=== PATIENT | male | born 1965 | race Caucasian/White ===

== ENCOUNTER → 2017-06-29 19:40 | Outpatient (CLI) | payer MEDICAID, SELFPAY | PROVIDERS: Family Provider Family Medicine; PCP Family Medicine; Visit Provider Family Medicine | DX: G47.33 Obstructive sleep apnea (adult) (pediatric) (principal); G47.61 Periodic limb movement disorder; R40.0 Somnolence; R06.83 Snoring | CPT/HCPCS: 95810 ==

== ENCOUNTER 2017-10-31 12:34 | Inpatient (IN) | payer MEDICAID, SELFPAY ==
[2017-10-31 12:50] VITALS: BP 176/107; PULSE 99; RESP 20; TEMP 37.2; O2SAT 99; BMI 28.0; BMI 28.1
[2017-10-31 13:10] VITALS: BP 176/107; PULSE 99; RESP 20; TEMP 37.2
--- NOTE | 2017-10-31 13:11 | HP.PCM_ITS ---
Problem List (1) Alcohol withdrawal Status: Acute Qualifiers: Complication of substance-induced condition: with perceptual disturbance Qualified Code(s): F10.232 - Alcohol dependence with withdrawal with perceptual disturbance (2) Acute alcoholic pancreatitis Status: Resolved Qualifiers: Acute pancreatitis complication: no infection or necrosis Qualified Code(s) : K85.20 - Alcohol induced acute pancreatitis without necrosis or infection (3) Alcoholic hepatitis Status: Chronic Qualifiers: Ascites presence: without ascites Qualified Code(s): K70.10 - Alcoholic hepatitis without ascites (4) ETOH abuse Status: Chronic (5) Hypokalemia Status: Resolved (6) Hypomagnesemia Status: Resolved (7) Pancreatitis Status: Resolved (8) Anxiety Status: Chronic (9) Depression Status: Chronic Qualifiers: Depression Type: major depressive disorder Major depression recurrence: recurrent Active/Remission status: currently active Psychotic features: without psychotic features (10) Essential (primary) hypertension Status: Chronic (11) GERMANIA (obstructive sleep apnea) Status: Chronic Comment: AHI overall CMS 5.5 events per hour History of Present Illness Date of Admission: 10/31/17 Chief Complaint: Tremulousness The patient is a 52 year old M past medical history significant for hypertension , chronic alcohol abuse please send with tremulousness. Patient has had recurrent admission for alcohol related illness including alcoholic pancreatitis. He has previously undergone detox he was sober for only 100 days. Patient relapsed and admitted to drinking almost on a daily basis. He drinks vodka. His last alcohol was around 1 AM on the morning of his presentation. In addition to patient complaining of tremulousness he admits to being anxious. Patient denies any hallucination. He was admitted as a case of acute alcohol withdrawal placed on a monitored bed for subsequent management. Past Medical History Past Medical History (Chronic Problems): Chronic Problems (Last Reviewed 07/13/17 @ 17:28 by EDGARDO OrtegaC) GERMANIA (obstructive sleep apnea) (Chronic) AHI overall CMS 5.5 events per hour Essential (primary) hypertension (Chronic) Depression (Chronic) Anxiety (Chronic) Alcoholic hepatitis (Chronic) ETOH abuse (Chronic) Allergies No Known Allergies Allergy (Verified 07/13/17 12:44) Home Medications: Ambulatory Orders Medication Instructions Recorded Amlodipine [Norvasc] 5 mg PO DAILY 10/15/16 Lisinopril [Zestril] 20 mg PO DAILY 10/15/16 Metoprolol Succinate 25 mg PO DAILY 10/15/16 Trazodone HCl 50 mg PO QHS PRN 10/15/16 acamprosate 333 mg tablet,delayed 666 mg PO TID tab 07/07/17 release fluoxetine 20 mg capsule 60 mg PO QDAY cap 07/07/17 Pantoprazole Sodium 20 mg PO DAILY 10/31/17 Surgical History: no surgical history Smoking Status: Never smoker - *Family History Maternal History Items: Hypertension Paternal History Items: Hypertension Sibling History Items: Hypertension Review of Systems Constitutional: Denies: Anorexia, Chills, Fever Eyes: Denies: Blurred vision HEENT: Denies: Head Aches Cardiovascular: Denies: Chest Pain, Orthopnea, Palpitations, Paroxysmal Noc. Dyspnea Respiratory: Denies: Cough, Shortness of breath at rest, Shortness of breath upon exertion, Sputum production Gastrointestinal: Denies: Abdominal Pain, Hematemesis, Hematochezia Genitourinary: Denies: Dysuria, Frequency, Hematuria Musculoskeletal: Denies: Joint Pain, Joint Tenderness Skin: Denies: Rash Neurological: Reports: Tremor. Denies: Focal weakness, Seizures Psychiatric: Denies: Homicidal Ideations, Suicidal Ideations Hematologic/ Lymphatic: Denies: Easy Bruising, Easy Bleeding VTE Information - Inpt Only VTE Present on Admission: No VTE Mechan Device Prophylaxis: Knee High CHAS Hose VTE Pharm Prophylaxis ordered?: Yes Objective: GENERAL: Tremulous at rest HEENT: Clear conjunctiva, NECK; supple, normal thyroid, CHEST: Clear to auscultation bilaterally, HEART: Regular S1 S2, tachycardic ABDOMEN: soft, normoactive bowel sounds, RECTAL: deferred EXTREMITIES: No edema, no clubbing, no cyanosis. 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 SKIN: No Rash - Physical Exam Vital Signs Temp Pulse Resp BP Pulse Ox 98.9 F 99 20 H 176/107 H 99 10/31/17 13:10 10/31/17 13:10 10/31/17 13:10 10/31/17 13:10 10/31/17 12:50 Oxygen Delivery Method Room Air Weight: 78.925 kg Body Mass Index (BMI) 28.0 Assessment/Plan The patient is a 52 year old M past medical history significant for hypertension , chronic alcohol abuse resented with tremulousness and assessment of acute alcohol withdrawal made admitted to regular nursing floor for subsequent management 1. Alcohol withdrawal in a patient with chronic alcohol abuse admitted to a regular nursing floor to be managed with Ativan using a [facility] protocol 2. Chronic alcohol abuse counseled on cessation 3. Hypertension-blood pressure controlled, home medications continued with dose adjustment as needed 4. Depression with anxiety patient is on SSRI 5. DVT prophylaxis Lovenox with close monitoring of his platelet count Code Visit Inpatient E&M: 46830 Init Hosp L3
[2017-10-31 14:01] LABS: Alcohol, Blood (Medical)-Serum < 3.0 mg/dL; Amylase 70 U/L (25-115); Lipase 420 U/L (73-393)
[2017-10-31 14:03] LABS: International Normalized Ratio 0.9; Prothrombin Time (Protime)PT. 12.4 SECONDS (11.7-14.9)
[2017-10-31] MEDS: Loperamide 2 MG Capsule PO (15:02)
[2017-10-31] MEDS: Ibuprofen 600 MG Tablet PO (15:02)
[2017-10-31] MEDS: Dicyclomine 10 MG Capsule 20 MG PO (15:02)
[2017-10-31] MEDS: Pramipexole Di-HCl 0.25 MG Tablet PO (15:03)
[2017-10-31] MEDS: LORazepam 1 MG Tablet PO ×3 (15:03→21:16)
[2017-10-31] MEDS: Multivitamins,Ther W-Minerals Tablet 1 TABLET PO (15:03)
[2017-10-31] MEDS: cloNIDine HCl 0.1 MG Tablet PO ×3 (15:03→21:16)
[2017-10-31] MEDS: Folic Acid 1 MG Tablet PO (15:03)
[2017-10-31] MEDS: Lactated Ringers 1,000 ML 125 ML IV (15:51)
[2017-10-31] MEDS: Thiamine Hydrochloride 100 MG Tablet PO (16:00)
[2017-10-31 17:10] VITALS: BP 139/85; PULSE 69; RESP 18; TEMP 37.7; O2SAT 99
[2017-10-31 17:16] LABS: Amphetamine Urine VISTA NEGATIVE (<1000 ng/mL); Barbiturate Urine VISTA NEGATIVE (< 200 ng/mL); Benzodiazepine Urine VISTA NEGATIVE (< 200 ng/mL); Cocaine Urine VISTA NEGATIVE (< 300 ng/mL); Ecstacy Urine VISTA NEGATIVE (< 500 ng/mL); Methadone Urine VISTA NEGATIVE (< 300 ng/mL); PCP Urine VISTA NEGATIVE (< 25 ng/mL); THC Urine VISTA POSITIVE (< 50 ng/mL); Vista UDS pH Range 6
[2017-10-31 17:50] VITALS: BP 139/85; PULSE 69; RESP 18; TEMP 37.7
--- NOTE | 2017-10-31 18:03 | CT_ITS ---
STUDY: CT BRAIN WITHOUT CONTRAST REASON FOR EXAM: Male, 52 years old. Fall. Visual disturbance. RADIATION DOSAGE (If Supplied By Facility): CTDIvol = ( 44.99 ) mGy, DLP = ( 812.98 ) mGycm TECHNIQUE: Transaxial CT imaging of the brain was performed without administration of intravenous contrast material. Individualized dose optimization techniques were used for this CT. COMPARISON: March 12, 2015. FINDINGS: Normal soft tissue structures. Normal calvarium. There is mild cerebral atrophy with widening of the extra-axial spaces and ventricular dilatation. Normal white matter tracts of the cerebral hemispheres. Normal basal ganglia and thalami. Normal brainstem. There is mild cerebellar atrophy. There is no intracranial hemorrhage. There are no findings of an acute ischemic infarction. Normal visualized paranasal sinuses. CT/Brain/Head without Contrast IMPRESSION: Chronic involutional changes of the brain. No hemorrhage. Electronically Signed: Mario Alberto Melo MD at 18:44 EDT , Service support ,
[2017-10-31 21:13] VITALS: BP 150/85; PULSE 63; RESP 16; TEMP 36.5
[2017-10-31] MEDS: traZODone 50 MG Tablet PO (21:16)
[2017-11-01] VITALS (8 sets, daily range): BP systolic 128–180; BP diastolic 77–95; PULSE 45–67; RESP 14–16; TEMP 36.4–36.9
[2017-11-01] MEDS: LORazepam 1 MG Tablet PO ×5 (02:01→21:40)
[2017-11-01] MEDS: cloNIDine HCl 0.1 MG Tablet PO ×3 (05:53→17:56)
[2017-11-01 05:59] LABS: Absolute Lymphocyte Count 1.24 X10^3/ul (0.83-4.51); Absolute Neutrophil Count 1.8 X10^3/uL (2.0-7.7); Basophil# 0.03 X10^3/uL; Basophil% 0.8 % (0-1); Eosinophil# 0.12 X10^3/uL; Eosinophils% 3.4 % (0-5); Hematocrit 37.3 % (40-54); Hemoglobin 12.3 g/dl (13.0-16.5); Lymphocyte # 1.24 X10^3/ul (4.0); Lymphocyte % 34.6 % (19-41); Mean Corpuscular Hgb 29.4 pg (27.0-32.0); Mean Platelet Vol. 8.8 fl (6.2-12.0); Monocyte# 0.44 X10^3/uL; Monocyte% 12.3 % (0-10); Neutrophil # 1.75 X10^3/uL (2.7-7.7); Neutrophil % 48.9 % (47-70); Platelet Count 158 K/mm3 (150-450); RBC Distribution Width CV 13.6 % (11.6-14.6); RBC Distribution Width SD 43.5 fl (35.1-43.9); Red Blood Count 4.19 M/mm3 (4.6-6.2); White Blood Count 3.6 K/mm3 (4.4-11.0)
[2017-11-01 06:12] LABS: POSITIVE COUNT NO; POSITIVE DIFFERENTIAL NO; POSITIVE MORPHOLOGY NO
[2017-11-01 06:21] LABS: ALB/GLOB Ratio 0.9 RATIO (0.9-2.4); AST(SGOT) 35 U/L (15-37); Alanine Aminotransfer ALT/SGPT 36 U/L (16-61); Albumin, Serum 3.2 g/dL (3.2-5.0); Alkaline Phosphatase 70 U/L (45-117); Anion Gap 6 (5-15); BUN 10 mg/dL (7-18); BUN/Creat Ratio 11.5 RATIO (10-20); Calcium,Total 8.3 mg/dL (8.5-10.1); Chloride 102 mmol/L (98-107); Creatinine, Serum 0.87 mg/dL (0.70-1.30); EST Glomerular Filtration Rate 97 mL/min (>60); Est Glom Filt Rate - Afr Amer 118 mL/min (>60); Estimated Creatinine Clearance 88.61 ml/min; Globulin 3.7 g/dL (2.2-4.2); Glucose 122 mg/dL (74-106); Magnesium 1.8 mg/dL (1.6-2.6); Potassium 3.7 mmol/L (3.5-5.1); Protein, Total 6.9 g/dL (6.4-8.2); Sodium Level 137 mmol/L (136-145)
--- NOTE | 2017-11-01 07:53 | PCM.PN.HOSP ---
Subjective: Patient seen appears extremely anxious still remains tremulous. His home medications reconciled. Objective: GENERAL: Tremulous at rest HEENT: Clear conjunctiva, NECK; supple, normal thyroid, CHEST: Clear to auscultation bilaterally, HEART: Regular S1 S2, tachycardic ABDOMEN: soft, normoactive bowel sounds, RECTAL: deferred EXTREMITIES: No edema, no clubbing, no cyanosis. 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 SKIN: No Rash Vitals/I&O's: Vital Signs Temp Pulse Resp BP Pulse Ox 98 F 65 16 129/82 H 99 11/01/17 05:58 11/01/17 05:58 11/01/17 05:58 11/01/17 05:58 10/31/17 17:10 Oxygen Delivery Method Room Air Weight: 78.925 kg Body Mass Index (BMI) 28.0 Intake and Output for Last 24 Hours 10/30/17 10/31/17 11/01/17 23:59 23:59 23:59 Intake Total 649 / 649 1429 / 1429 Balance 649 / 649 1429 / 1429 Laboratory Results 10/31/17 13:25: PT 12.4, INR 0.9 10/31/17 13:25: Amylase 70, Lipase 420 H 10/31/17 13:25: Ethyl Alcohol < 3.0 10/31/17 16:15: Urine Opiates Screen NEGATIVE, Urine Methadone Screen NEGATIVE, Ur Barbiturates Screen NEGATIVE, Ur Phencyclidine Scrn NEGATIVE, Ur Amphetamines Screen NEGATIVE, U Methamphetamin-MDMA NEGATIVE, U Benzodiazepines Scrn NEGATIVE, Urine Cocaine Screen NEGATIVE, U Cannabinoids Screen POSITIVE H, Ur Drug Screen Comment 11/01/17 05:32: WBC 3.6 L, RBC 4.19 L, Hgb 12.3 L, Hct 37.3 L, MCV 89.0, MCH 29.4, MCHC 33.0, RDW 13.6, RDW Differential 43.5, Plt Count 158, MPV 8.8, Immature Gran % (Auto) 0.000, Neut % (Auto) 48.9, Lymph % (Auto) 34.6, [place] % (Auto) 12.3 H, Eos % (Auto) 3.4, Baso % (Auto) 0.8, Absolute Neuts (auto) 1.8 L, Absolute Lymphs (auto) 1.24, Total Counted Not Reportable 11/01/17 05:32: Sodium 137, Potassium 3.7, Chloride 102, Carbon Dioxide 29.0, Anion Gap 6, BUN 10, Creatinine 0.87, Estim Creat Clear Calc 88.61, Est GFR (MDRD) Af Amer 118, Est GFR (MDRD) Non-Af 97, BUN/Creatinine Ratio 11.5, Glucose 122 H, Calcium 8.3 L, Magnesium 1.8, Total Bilirubin 0.60, AST 35, ALT 36, Alkaline Phosphatase 70, Total Protein 6.9, Albumin 3.2, Globulin 3.7, Albumin/Globulin Ratio 0.9 Current Medications Acetaminophen (Tylenol) 500 mg PO Q4H PRN PRN PRN Reason: Temp > 100.4 F Al Hydroxide/Mg Hydroxide (Mylanta Ii) 30 ml PO Q6H PRN PRN PRN Reason: dyspesia Bisacodyl (Dulcolax) 10 mg RECTAL DAILY PRN PRN Reason: Constipation Clonidine (Catapres) 0.1 mg PO Q4 [facility] Last Admin: 11/01/17 05:53 Dose: 0.1 mg Dicyclomine HCl (Bentyl) 20 mg PO Q6H PRN PRN PRN Reason: abdominal discomfort Last Admin: 10/31/17 15:02 Dose: 20 mg Enoxaparin Sodium (Lovenox) 40 mg SC DAILY@1000 [facility] Folic Acid (Folic Acid) 1 mg PO DAILY@0800 [facility] Last Admin: 10/31/17 15:03 Dose: 1 mg Hydroxyzine Pamoate (Vistaril Pamoate Capsule) 50 mg PO Q6H PRN PRN PRN Reason: Mild Anxiety (score 1/3) Ibuprofen (Motrin) 600 mg PO Q8H PRN PRN PRN Reason: Mild-Moderate Pain (1-5/10) Last Admin: 10/31/17 15:02 Dose: 600 mg Loperamide HCl (Imodium) 2 - 4 mg PO UD PRN PRN Reason: LOOSE STOOLS Last Admin: 10/31/17 15:02 Dose: 2 mg Lorazepam (Ativan) 1 mg PO Q4H [facility] PRN Reason: Taper Stop: 11/03/17 17:59 Last Admin: 11/01/17 05:53 Dose: 1 mg Magnesium Hydroxide (Milk Of Magnesia) 30 ml PO DAILY PRN PRN PRN Reason: Constipation Methocarbamol (Methocarbamol) 750 mg PO Q6H PRN PRN PRN Reason: Muscle Aches Multivitamins/Minerals ([facility]erals) [facility] Last Admin: 10/31/17 15:03 Dose: 1 tablet Nicotine (Nicoderm Cq (Pbkc)) 21 mg TRANSDERM. DAILY [facility] Ondansetron HCl (Zofran Odt) 4 mg PO Q6H PRN PRN PRN Reason: NAUSEA Pramipexole Dihydrochloride (Mirapex) 0.25 mg PO Q12H PRN PRN PRN Reason: Restless legs Last Admin: 10/31/17 15:03 Dose: 0.25 mg Quetiapine Fumarate (Seroquel) 25 mg PO Q6H PRN PRN PRN Reason: Moderate Anxiety (score 2/3) Senna (Senokot) 1 tablet PO QHS PRN PRN Reason: Constipation Thiamine [facility] ([facility]itamin B1) [facility] Last Admin: 10/31/17 16:00 Dose: 100 mg Trazodone HCl (Desyrel) 50 mg PO QHS [facility] Last Admin: 10/31/17 21:16 Dose: 50 mg Medical Necessity - Tobacco Use Smoking Status: Never smoker Assessment/Plan The patient is a 52 year old M past medical history significant for hypertension, chronic alcohol abuse resented with tremulousness and assessment of acute alcohol withdrawal made admitted to regular nursing floor for subsequent management 1. Alcohol withdrawal in a patient with chronic alcohol abuse admitted to a regular nursing floor to be managed with Ativan using a [facility] protocol 2. Chronic alcohol abuse counseled on cessation 3. Hypertension-blood pressure controlled, home medications continued with dose adjustment as needed 4. Depression with anxiety patient is on SSRI 5. DVT prophylaxis Lovenox with close monitoring of his platelet count Code Visit Inpatient E&M: 35769 [facility] Hosp L3
[2017-11-01] MEDS: Multivitamins,Ther W-Minerals Tablet 1 TABLET PO (09:16)
[2017-11-01] MEDS: Thiamine Hydrochloride 100 MG Tablet PO (09:16)
[2017-11-01] MEDS: Folic Acid 1 MG Tablet PO (09:16)
[2017-11-01] MEDS: Enoxaparin 40 MG/0.4 ML Syringe SC (09:17)
[2017-11-01] MEDS: Lisinopril 20 MG Tablet PO ×2 (10:55→22:47)
[2017-11-01] MEDS: FLUoxetine 20 MG Capsule 60 MG PO (10:55)
[2017-11-01] MEDS: Pantoprazole Sodium 20 MG Tablet PO (10:56)
[2017-11-01] MEDS: amLODIPine 5 MG Tablet PO (10:56)
[2017-11-01] MEDS: QUEtiapine 25 MG Tablet PO (11:02)
[2017-11-01] MEDS: Metoprolol(XL)Succ 25 MG Tablet PO (14:44)
[2017-11-01] MEDS: Magnesium Hydroxide 30 ML UDC PO (14:48)
[2017-11-01] MEDS: traZODone 50 MG Tablet PO (21:40)
[2017-11-02 03:07] VITALS: BP 158/90; PULSE 58; RESP 16; TEMP 36.5
[2017-11-02] MEDS: LORazepam 1 MG Tablet PO ×3 (03:13→17:48)
--- NOTE | 2017-11-02 07:50 | PCM.PN.HOSP ---
Subjective: Patient seen appears less tremulous compared to the day prior. Objective: GENERAL: Tremulous at rest HEENT: Clear conjunctiva, NECK; supple, normal thyroid, CHEST: Clear to auscultation bilaterally, HEART: Regular S1 S2, tachycardic ABDOMEN: soft, normoactive bowel sounds, RECTAL: deferred EXTREMITIES: No edema, no clubbing, no cyanosis. 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 SKIN: No Rash Vitals/I&O's: Vital Signs Temp Pulse Resp BP Pulse Ox 97.7 F L 58 L 16 158/90 H 99 11/02/17 03:07 11/02/17 03:07 11/02/17 03:07 11/02/17 03:07 10/31/17 17:10 Oxygen Delivery Method Room Air Weight: 78.925 kg Body Mass Index (BMI) 28.0 Intake and Output for Last 24 Hours 10/31/17 11/01/17 11/02/17 23:59 23:59 23:59 Intake Total 649 / 649 1429 / 1429 500 / 500 Balance 649 / 649 1429 / 1429 500 / 500 Current Medications Acetaminophen (Tylenol) 500 mg PO Q4H PRN PRN PRN Reason: Temp > 100.4 F Al Hydroxide/Mg Hydroxide (Mylanta Ii) 30 ml PO Q6H PRN PRN PRN Reason: dyspesia Amlodipine Besylate (Norvasc) 5 mg PO DAILY [facility] Last Admin: 11/01/17 10:56 Dose: 5 mg Bisacodyl (Dulcolax) 10 mg RECTAL DAILY PRN PRN Reason: Constipation Clonidine (Catapres) 0.1 mg PO Q4 [facility] Last Admin: 11/02/17 06:15 Dose: Not Given Dicyclomine HCl (Bentyl) 20 mg PO Q6H PRN PRN PRN Reason: abdominal discomfort Last Admin: 10/31/17 15:02 Dose: 20 mg Enoxaparin Sodium (Lovenox) 40 mg SC DAILY@1000 [facility] Last Admin: 11/01/17 09:17 Dose: 40 mg Fluoxetine HCl (Prozac) 60 mg PO DAILY [facility] Last Admin: 11/01/17 10:55 Dose: 60 mg Folic Acid (Folic Acid) 1 mg PO DAILY@0800 [facility] Last Admin: 11/01/17 09:16 Dose: 1 mg Hydroxyzine Pamoate (Vistaril Pamoate Capsule) 50 mg PO Q6H PRN PRN PRN Reason: Mild Anxiety (score 1/3) Ibuprofen (Motrin) 600 mg PO Q8H PRN PRN PRN Reason: Mild-Moderate Pain (1-5/10) Last Admin: 10/31/17 15:02 Dose: 600 mg Lisinopril (Zestril) 20 mg PO BID [facility] Last Admin: 11/01/17 22:47 Dose: 20 mg Loperamide HCl (Imodium) 2 - 4 mg PO UD PRN PRN Reason: LOOSE STOOLS Last Admin: 10/31/17 15:02 Dose: 2 mg Lorazepam (Ativan) 1 mg PO Q6H [facility] PRN Reason: Taper Stop: 11/03/17 17:59 Last Admin: 11/02/17 03:13 Dose: 1 mg Magnesium Hydroxide (Milk Of Magnesia) 30 ml PO DAILY PRN PRN PRN Reason: Constipation Last Admin: 11/01/17 14:48 Dose: 30 ml Methocarbamol (Methocarbamol) 750 mg PO Q6H PRN PRN PRN Reason: Muscle Aches Metoprolol Succinate (Toprol Xl (Beta Rissa)) 25 mg PO DAILY [facility] Last Admin: 11/01/17 14:44 Dose: 25 mg Multivitamins/Minerals (Multivitamin With Minerals) [facility] Last Admin: 11/01/17 09:16 Dose: 1 tablet Nicotine (Nicoderm Cq (Pbkc)) 21 mg TRANSDERM. DAILY [facility] Last Admin: 11/01/17 10:56 Dose: Not Given Ondansetron HCl (Zofran Odt) 4 mg PO Q6H PRN PRN PRN Reason: NAUSEA Pantoprazole Sodium (Protonix) 20 mg PO DAILY [facility] Last Admin: 11/01/17 10:56 Dose: 20 mg Pramipexole Dihydrochloride (Mirapex) 0.25 mg PO Q12H PRN PRN PRN Reason: Restless legs Last Admin: 10/31/17 15:03 Dose: 0.25 mg Quetiapine Fumarate (Seroquel) 25 mg PO Q6H PRN PRN PRN Reason: Moderate Anxiety (score 2/3) Last Admin: 11/01/17 11:02 Dose: 25 mg Senna (Senokot) 1 tablet PO QHS PRN PRN Reason: Constipation Thiamine HCl (Vitamin B1) [facility] Last Admin: 11/01/17 09:16 Dose: 100 mg Trazodone HCl (Desyrel) 50 mg PO QHS [facility] Last Admin: 11/01/17 21:40 Dose: 50 mg Medical Necessity - Tobacco Use Smoking Status: Never smoker Assessment/Plan The patient is a 52 year old M past medical history significant for hypertension, chronic alcohol abuse resented with tremulousness and assessment of acute alcohol withdrawal made admitted to regular nursing floor for subsequent management 1. Alcohol withdrawal in a patient with chronic alcohol abuse admitted to a regular nursing floor to be managed with Ativan using a [facility] protocol 2. Chronic alcohol abuse counseled on cessation 3. Hypertension-blood pressure controlled, home medications continued with dose adjustment as needed 4. Depression with anxiety patient is on SSRI 5. DVT prophylaxis Lovenox with close monitoring of his platelet count Code Visit Inpatient E&M: 26250 Subs Hosp L2
--- NOTE | 2017-11-02 07:57 | PN_ITS ---
Subjective: Patient seen appears less tremulous compared to the day prior. Objective: GENERAL: Tremulous at rest HEENT: Clear conjunctiva, NECK; supple, normal thyroid, CHEST: Clear to auscultation bilaterally, HEART: Regular S1 S2, tachycardic ABDOMEN: soft, normoactive bowel sounds, RECTAL: deferred EXTREMITIES: No edema, no clubbing, no cyanosis. 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 SKIN: No Rash Vitals/I&O's: Vital Signs Temp Pulse Resp BP Pulse Ox 97.7 F L 58 L 16 158/90 H 99 11/02/17 03:07 11/02/17 03:07 11/02/17 03:07 11/02/17 03:07 10/31/17 17:10 Oxygen Delivery Method Room Air Weight: 78.925 kg Body Mass Index (BMI) 28.0 Intake and Output for Last 24 Hours 10/31/17 11/01/17 11/02/17 23:59 23:59 23:59 Intake Total 649 / 649 1429 / 1429 500 / 500 Balance 649 / 649 1429 / 1429 500 / 500 Current Medications Acetaminophen (Tylenol) 500 mg PO Q4H PRN PRN PRN Reason: Temp > 100.4 F Al Hydroxide/Mg Hydroxide (Mylanta Ii) 30 ml PO Q6H PRN PRN PRN Reason: dyspesia Amlodipine Besylate (Norvasc) 5 mg PO DAILY [facility] Last Admin: 11/01/17 10:56 Dose: 5 mg Bisacodyl (Dulcolax) 10 mg RECTAL DAILY PRN PRN Reason: Constipation Clonidine (Catapres) 0.1 mg PO Q4 [facility] Last Admin: 11/02/17 06:15 Dose: Not Given Dicyclomine HCl (Bentyl) 20 mg PO Q6H PRN PRN PRN Reason: abdominal discomfort Last Admin: 10/31/17 15:02 Dose: 20 mg Enoxaparin Sodium (Lovenox) 40 mg SC DAILY@1000 [facility] Last Admin: 11/01/17 09:17 Dose: 40 mg Fluoxetine HCl (Prozac) 60 mg PO DAILY [facility] Last Admin: 11/01/17 10:55 Dose: 60 mg Folic Acid (Folic Acid) 1 mg PO DAILY@0800 [facility] Last Admin: 11/01/17 09:16 Dose: 1 mg Hydroxyzine Pamoate (Vistaril Pamoate Capsule) 50 mg PO Q6H PRN PRN PRN Reason: Mild Anxiety (score 1/3) Ibuprofen (Motrin) 600 mg PO Q8H PRN PRN PRN Reason: Mild-Moderate Pain (1-5/10) Last Admin: 10/31/17 15:02 Dose: 600 mg Lisinopril (Zestril) 20 mg PO BID [facility] Last Admin: 11/01/17 22:47 Dose: 20 mg Loperamide HCl (Imodium) 2 - 4 mg PO UD PRN PRN Reason: LOOSE STOOLS Last Admin: 10/31/17 15:02 Dose: 2 mg Lorazepam (Ativan) 1 mg PO Q6H [facility] PRN Reason: Taper Stop: 11/03/17 17:59 Last Admin: 11/02/17 03:13 Dose: 1 mg Magnesium Hydroxide (Milk Of Magnesia) 30 ml PO DAILY PRN PRN PRN Reason: Constipation Last Admin: 11/01/17 14:48 Dose: 30 ml Methocarbamol (Methocarbamol) 750 mg PO Q6H PRN PRN PRN Reason: Muscle Aches Metoprolol Succinate (Toprol Xl (Beta Rissa)) 25 mg PO DAILY [facility] Last Admin: 11/01/17 14:44 Dose: 25 mg Multivitamins/Minerals ([facility]itamin With Minerals) [facility] Last Admin: 11/01/17 09:16 Dose: 1 tablet Nicotine (Nicoderm Cq (Pbkc)) 21 mg TRANSDERM. DAILY [facility] Last Admin: 11/01/17 10:56 Dose: Not Given Ondansetron HCl (Zofran Odt) 4 mg PO Q6H PRN PRN PRN Reason: NAUSEA Pantoprazole Sodium (Protonix) 20 mg PO DAILY [facility] Last Admin: 11/01/17 10:56 Dose: 20 mg Pramipexole Dihydrochloride (Mirapex) 0.25 mg PO Q12H PRN PRN PRN Reason: Restless legs Last Admin: 10/31/17 15:03 Dose: 0.25 mg Quetiapine Fumarate (Seroquel) 25 mg PO Q6H PRN PRN PRN Reason: Moderate Anxiety (score 2/3) Last Admin: 11/01/17 11:02 Dose: 25 mg Senna (Senokot) 1 tablet PO QHS PRN PRN Reason: Constipation Thiamine HCl (Vitamin B1) [facility] Last Admin: 11/01/17 09:16 Dose: 100 mg Trazodone HCl (Desyrel) 50 mg PO QHS [facility] Last Admin: 11/01/17 21:40 Dose: 50 mg Medical Necessity - Tobacco Use Smoking Status: Never smoker Assessment/Plan The patient is a 52 year old M past medical history significant for hypertension , chronic alcohol abuse resented with tremulousness and assessment of acute alcohol withdrawal made admitted to regular nursing floor for subsequent management 1. Alcohol withdrawal in a patient with chronic alcohol abuse admitted to a regular nursing floor to be managed with Ativan using a [facility] protocol 2. Chronic alcohol abuse counseled on cessation 3. Hypertension-blood pressure controlled, home medications continued with dose adjustment as needed 4. Depression with anxiety patient is on SSRI 5. DVT prophylaxis Lovenox with close monitoring of his platelet count Code Visit Inpatient E&M: 06164 Subs Hosp L2
[2017-11-02] MEDS: Thiamine Hydrochloride 100 MG Tablet PO (08:44)
[2017-11-02] MEDS: Folic Acid 1 MG Tablet PO (08:44)
[2017-11-02 10:00] VITALS: BP 146/99; PULSE 62; RESP 18; TEMP 36.6
[2017-11-02] MEDS: Lisinopril 20 MG Tablet PO ×2 (10:02→22:14)
[2017-11-02] MEDS: Multivitamins,Ther W-Minerals Tablet 1 TABLET PO (10:02)
[2017-11-02] MEDS: Pantoprazole Sodium 20 MG Tablet PO (10:02)
[2017-11-02] MEDS: cloNIDine HCl 0.1 MG Tablet PO ×3 (10:02→22:14)
[2017-11-02] MEDS: Enoxaparin 40 MG/0.4 ML Syringe SC (10:03)
[2017-11-02] MEDS: FLUoxetine 20 MG Capsule 60 MG PO (10:03)
[2017-11-02] MEDS: amLODIPine 5 MG Tablet PO (10:03)
[2017-11-02 10:04] VITALS: PULSE 62
[2017-11-02] MEDS: Metoprolol(XL)Succ 25 MG Tablet PO (10:04)
[2017-11-02 14:00] VITALS: BP 139/104; PULSE 67; RESP 18; TEMP 36.7
[2017-11-02] MEDS: Ibuprofen 600 MG Tablet PO (16:22)
[2017-11-02] MEDS: Methocarbamol 750 MG Tablet PO (16:23)
[2017-11-02 17:46] VITALS: BP 161/85; PULSE 61; RESP 18; TEMP 37.1
[2017-11-02 20:28] VITALS: BP 148/88; PULSE 65; RESP 16; TEMP 36.9
[2017-11-02] MEDS: Pramipexole Di-HCl 0.25 MG Tablet PO (20:43)
[2017-11-02] MEDS: traZODone 50 MG Tablet PO (22:14)
[2017-11-03 02:00] VITALS: BP 129/89; PULSE 57; RESP 16; TEMP 36.6
[2017-11-03] MEDS: LORazepam 1 MG Tablet PO (02:40)
[2017-11-03 05:21] VITALS: BP 134/75; PULSE 53; RESP 16; TEMP 36.9
[2017-11-03] MEDS: Folic Acid 1 MG Tablet PO (07:35)
[2017-11-03] MEDS: Thiamine Hydrochloride 100 MG Tablet PO (07:35)
[2017-11-03] MEDS: Multivitamins,Ther W-Minerals Tablet 1 TABLET PO (07:35)
--- NOTE | 2017-11-03 08:11 | PCM.DC ---
You will use the following diet at home:: No restrictions Allergies/Adverse Reactions: Allergies No Known Allergies Allergy (Verified 07/13/17 12:44) Medications to take at Discharge Amlodipine [Norvasc] 5 mg PO DAILY 10/15/16 Lisinopril [Zestril] 20 mg PO BID 10/15/16 Metoprolol Succinate 25 mg PO DAILY 10/15/16 Trazodone HCl 50 mg PO QHS PRN 10/15/16 acamprosate 333 mg tablet,delayed release 666 mg PO TID tab 07/07/17 fluoxetine 20 mg capsule 60 mg PO QDAY cap 07/07/17 Pantoprazole Sodium 20 mg PO DAILY 10/31/17 Primary Care Physician: Enoch Ramirez MD [Primary Care Provider] - Please follow up with your Primary Care Physician in: in 1-2 weeks Proposed Discharge Date: 11/03/17
--- NOTE | 2017-11-03 08:15 | DS.PCM_ITS ---
Discharge Date and Diagnosis Date of Admission: 10/31/17 Date of Discharge: 11/03/17 - Primary Discharge Diagnosis Acute alcohol withdrawal - Secondary Discharge Diagnosis Chronic Problems (Last Reviewed 07/13/17 @ 17:28 by REMI Ortega) GERMANIA (obstructive sleep apnea) (Chronic) AHI overall CMS 5.5 events per hour Essential (primary) hypertension (Chronic) Depression (Chronic) Anxiety (Chronic) Alcoholic hepatitis (Chronic) ETOH abuse (Chronic) Hospital Course and Treatment Imaging Results: Clinical Impression(s) from Imaging Studies Brain CT 10/31/17 18:03 IMPRESSION: Chronic involutional changes of the brain. No hemorrhage. Electronically Signed: Mario Alberto Melo MD at 18:44 EDT , Service support , Operations: None Summary of Care Provided: The patient is a 52 year old M past medical history significant for hypertension , chronic alcohol abuse resented with tremulousness and assessment of acute alcohol withdrawal made admitted to regular nursing floor for subsequent management 1. Alcohol withdrawal in a patient with chronic alcohol abuse admitted to a regular nursing floor to be managed with Ativan using a [facility] protocol 2. Chronic alcohol abuse counseled on cessation 3. Hypertension-blood pressure controlled, home medications continued with dose adjustment as needed 4. Depression with anxiety patient is on SSRI 5. DVT prophylaxis Lovenox with close monitoring of his platelet count Discharge Diet: No Restrictions Home Medications: Medications to take at Discharge Amlodipine [Norvasc] 5 mg PO DAILY 10/15/16 Lisinopril [Zestril] 20 mg PO BID 10/15/16 Metoprolol Succinate 25 mg PO DAILY 10/15/16 Trazodone HCl 50 mg PO QHS PRN 10/15/16 acamprosate 333 mg tablet,delayed release 666 mg PO TID tab 07/07/17 fluoxetine 20 mg capsule 60 mg PO QDAY cap 07/07/17 Pantoprazole Sodium 20 mg PO DAILY 10/31/17 Primary Care Physician: Enoch Ramirez MD [Primary Care Provider] - Please follow up with your Primary Care Physician in: in 1-2 weeks Disposition: Home Minutes spent on discharge:: 35 Patient Condition:: Stable Medical Necessity - Tobacco Use Smoking Status: Never smoker Meaningful Use Info Meaningful Use Diagnoses (Choose all that apply): None applicable Code Visit Inpatient E&M: 24557 Disch Hosp
[2017-11-03] MEDS: FLUoxetine 20 MG Capsule 60 MG PO (09:27)
[2017-11-03] MEDS: Enoxaparin 40 MG/0.4 ML Syringe SC (09:27)
[2017-11-03 09:28] VITALS: PULSE 78
[2017-11-03] MEDS: Pantoprazole Sodium 20 MG Tablet PO (09:28)
[2017-11-03] MEDS: Metoprolol(XL)Succ 25 MG Tablet PO (09:28)
[2017-11-03] MEDS: amLODIPine 5 MG Tablet PO (09:29)
[2017-11-03] MEDS: Lisinopril 20 MG Tablet PO (09:35)
[2017-11-03] MEDS: cloNIDine HCl 0.1 MG Tablet PO (09:35)
[2017-11-03 09:44] VITALS: PULSE 78
[2017-11-03 09:46] VITALS: BP 128/88; PULSE 78; RESP 18; TEMP 36.6; O2SAT 98
== END 2017-11-03 10:00 | disposition home or self-care (01) | DRG 434 ==
PROVIDERS: Admitting Provider Internal Medicine; Family Provider Family Medicine; PCP Family Medicine; Visit Provider Internal Medicine
DX: F10.232 Alcohol dependence with withdrawal with perceptual disturbance (principal); K85.20 Alcohol induced acute pancreatitis without necrosis or infection; G47.33 Obstructive sleep apnea (adult) (pediatric); I10 Essential (primary) hypertension; F41.8 Other specified anxiety disorders; K70.10 Alcoholic hepatitis without ascites
CPT/HCPCS: 36415; 70450; 80053; 80307; 80320; 82150; 83690; 83735; 85025; 85610; J7120; G0480

== ENCOUNTER 2018-01-30 19:11 | Inpatient (IN) | payer SELFPAY ==
[2018-01-30 19:12] VITALS: BP 169/106; PULSE 80; RESP 17; TEMP 36.8; O2SAT 98; BMI 28.3
[2018-01-30] MEDS: 0.9% Normal Saline 1,000 ML 150 ML IV (20:14)
[2018-01-30] MEDS: LORazepam 2 MG/ML Syringe 0.5 MG IV (20:14)
[2018-01-30 20:15] VITALS: PULSE 68; RESP 16; O2SAT 96
[2018-01-30 20:22] LABS: Absolute Lymphocyte Count 2.08 X10^3/ul (0.83-4.51); Basophil# 0.03 X10^3/uL; Basophil% 0.7 % (0-1); Eosinophil# 0.03 X10^3/uL; Eosinophils% 0.7 % (0-5); Hematocrit 43.6 % (40-54); Hemoglobin 15.7 g/dl (13.0-16.5); Lymphocyte # 2.08 X10^3/ul (4.0); Lymphocyte % 45.4 % (19-41); Mean Corpuscular Hgb 31.9 pg (27.0-32.0); Mean Corpuscular Volume 88.6 fL (80-94); Mean Platelet Vol. 8.5 fl (6.2-12.0); Monocyte# 0.46 X10^3/uL; Neutrophil # 1.97 X10^3/uL (2.7-7.7); Platelet Count 251 K/mm3 (150-450); RBC Distribution Width CV 16.1 % (11.6-14.6); Red Blood Count 4.92 M/mm3 (4.6-6.2); White Blood Count 4.6 K/mm3 (4.4-11.0)
[2018-01-30 20:23] LABS: POSITIVE COUNT NO; POSITIVE DIFFERENTIAL NO; POSITIVE MORPHOLOGY NO
[2018-01-30 21:01] VITALS: BP 150/93; PULSE 72; RESP 18; O2SAT 94
[2018-01-30 21:33] LABS: Amphetamine Urine VISTA NEGATIVE (<1000 ng/mL); Barbiturate Urine VISTA NEGATIVE (< 200 ng/mL); Benzodiazepine Urine VISTA NEGATIVE (< 200 ng/mL); Cocaine Urine VISTA NEGATIVE (< 300 ng/mL); Ecstacy Urine VISTA NEGATIVE (< 500 ng/mL); Methadone Urine VISTA NEGATIVE (< 300 ng/mL); PCP Urine VISTA NEGATIVE (< 25 ng/mL); THC Urine VISTA POSITIVE (< 50 ng/mL); Vista UDS pH Range 6
[2018-01-30 22:03] VITALS: BP 135/90; PULSE 70; RESP 16; O2SAT 95
[2018-01-30 22:59] LABS: AST(SGOT) 421 U/L (15-37); Alanine Aminotransfer ALT/SGPT 143 U/L (16-61); Albumin, Serum 2.9 g/dL (3.2-5.0); Alkaline Phosphatase 176 U/L (45-117); Anion Gap 13 (5-15); BUN 12 mg/dL (7-18); BUN/Creat Ratio 12.1 RATIO (10-20); Bilirubin, Direct 0.46 mg/dL (0.00-0.30); Calcium,Total 7.2 mg/dL (8.5-10.1); Chloride 98 mmol/L (98-107); Creatinine, Serum 0.99 mg/dL (0.70-1.30); EST Glomerular Filtration Rate 84 mL/min (>60); Est Glom Filt Rate - Afr Amer 101 mL/min (>60); Estimated Creatinine Clearance 77.87 ml/min; Glucose 124 mg/dL (74-106); Lipase 403 U/L (73-393); Potassium 3.9 mmol/L (3.5-5.1); Protein, Total 6.9 g/dL (6.4-8.2); Sodium Level 133 mmol/L (136-145)
[2018-01-30 23:15] VITALS: BP 117/80; PULSE 77; RESP 17; O2SAT 96
[2018-01-31] VITALS (27 sets, daily range): BP systolic 104–161; BP diastolic 43–104; PULSE 46–90; RESP 13–25; TEMP 36.6–37.1; O2SAT 94–99; BMI 28.4; BMI 28.3
--- NOTE | 2018-01-31 00:05 | ED.DCSUM_ITS ---
- ER Visit Summary Date of Service: 01/31/18 Chief Complaint: Depression History of Present Illness: The patient is a 52 M who is brought in for depression and suicidal ideation. He denies a specific plan. Patient has a history of alcohol abuse. He states he has not eaten in the past week, only drank vodka. He has recently lost his job and his car. His is also leaving him. He was last in detox April - June 2017. Past history significant for sleep apnea, pancreatitis, hypertension, hepatitis. Physical Examination: Vital signs significant for blood pressure of 169/106, otherwise unremarkable. Patient is lying in bed. He is a flat affect with poor eye contact. He is intermittently tearful. Head neck examination is otherwise unremarkable. Heart is regular rate and rhythm. Lung sounds are clear. Abdomen is soft nontender. Hypoactive bowel sounds are noted throughout. Test Results: CBC is normal. Chemistry studies significant for sodium of 133. LFTs revealed ALT 143, AST 421, alk phos 176. Total bili is 1.4 and direct bili 0.46. Lipase is 403. Coags are normal. Tox screen is positive for cannabinoids. EtOH is 307. Emergency Department Course and Treatment: Patient was given small dose of Ativan because he was getting agitated with having to sit here in the ER wait so long. He will be signed over to oncoming physician for repeat evaluation. If patient develops symptoms of alcohol withdrawal, he will need to be admitted for detox. Patient will be reevaluated by counseling center as well. Treatment Plan: [] Disposition: Pending repeat evaluation Impression: 1. Suicidal thoughts 2. Alcohol intoxication 3. Alcoholic hepatitis This note was generated with [employer] dictation software. It may contain incorrect words, spelling, and punctuation that were not noted in review of the chart prior to signing ED Disposition - Plan for ED Patient: Chief Complaint: Suicidal Referrals: Enoch Ramirez MD [Primary Care Provider] -
[2018-01-31] MEDS: 0.9% Normal Saline 1,000 ML 150 ML IV ×2 (05:38→16:32)
[2018-01-31] MEDS: amLODIPine 5 MG Tablet PO (06:58)
[2018-01-31] MEDS: Metoprolol Tartrate 25 MG Tablet PO (06:58)
[2018-01-31] MEDS: Pantoprazole Sodium 20 MG Tablet PO (06:59)
--- NOTE | 2018-01-31 07:14 | ED.RN ---
PATIENT IS CLEARED CALLED CRISIS
[2018-01-31] MEDS: FLUoxetine 20 MG Capsule 60 MG PO (07:19)
[2018-01-31] MEDS: Lisinopril 20 MG Tablet PO ×2 (07:19→21:26)
[2018-01-31] MEDS: LORazepam 2 MG/ML Syringe 1 MG IV ×4 (07:59→19:50)
--- NOTE | 2018-01-31 17:08 | ED.RN ---
ciwa assessment completed by this rn per dr. winston, dr. winston informed of results. will continue to monitor.
--- NOTE | 2018-01-31 18:57 | PCM.HP.STD ---
Problem List (1) Suicidal ideation Status: Acute (2) Alcohol withdrawal Status: Acute History of Present Illness Date of Admission: 01/31/18 Chief Complaint: suicidal ideation. The patient is a 52 year old M who told his that he was going to hang himself in the barn and not to have his by. EMS is sent to his house emergency room. Plan was for the patient to go to inpatient psychiatric unit once his alcohol levels improved as patient was sobered up as his alcohol level was 307. However, the patient had evidence of alcohol withdrawal and did require several doses of Ativan. The facility, [facility], stated that the patient would have to be through his withdrawal before they could accept him as a psychiatric patient. Patient states that he no longer has a gone past and then voluntarily, according him, had his gun removed. But patient stated that he was going to use an order and should extension cord and hitting himself in the rafters of a barn. [] Past Medical History Past Medical History (Chronic Problems): Chronic Problems (Last Reviewed 07/13/17 @ 17:28 by Apryl Schwartz, MARIA FERNANDA-C) GERMANIA (obstructive sleep apnea) (Chronic) AHI overall CMS 5.5 events per hour Essential (primary) hypertension (Chronic) Depression (Chronic) Anxiety (Chronic) Alcoholic hepatitis (Chronic) ETOH abuse (Chronic) Medical History: Medical History (Last Reviewed 01/31/18 @ 18:59 by Adolph Lambert DO) Alcohol withdrawal (Acute) F10.239 Acute alcoholic pancreatitis (Resolved) K85.20 Hypokalemia (Resolved) E87.6 Hypomagnesemia (Resolved) E83.42 Essential (primary) hypertension (Chronic) I10 Depression (Chronic) F32.9 Anxiety (Chronic) F41.9 Alcoholic hepatitis (Chronic) K70.10 Pancreatitis (Resolved) K85.90 ETOH abuse (Chronic) F10.10 Anemia D64.9 GERD (gastroesophageal reflux disease) K21.9 Insomnia G47.00 GERMANIA (obstructive sleep apnea) G47.33 Allergies No Known Allergies Allergy (Verified 01/30/18 19:13) Home Medications: Ambulatory Orders Medication Instructions Recorded Amlodipine [Norvasc] 5 mg PO DAILY 10/15/16 Lisinopril [Zestril] 20 mg PO BID 10/15/16 Metoprolol Succinate 25 mg PO DAILY 10/15/16 Trazodone HCl 50 mg PO QHS PRN 10/15/16 fluoxetine 20 mg capsule 60 mg PO DAILY cap 07/07/17 Pantoprazole Sodium 20 mg PO DAILY 10/31/17 Surgical History: no surgical history Smoking Status: Never smoker Alcohol: Heavy - Drinks 1 pint of low proof vodka per day Drugs: Marijuana - Occasional - *Family History Maternal History Items: Hypertension Paternal History Items: Hypertension Sibling History Items: Hypertension Review of Systems Constitutional: Denies: Anorexia, Chills, Fever Eyes: Denies: Blurred vision, Double vision HEENT: Reports: Head Aches. Denies: Sinus Congestion, Sinus Drainage Cardiovascular: Denies: Chest Pain, Palpitations Respiratory: Denies: Cough, Shortness of breath at rest, Sputum production Gastrointestinal: Reports: Nausea. Denies: Abdominal Pain Genitourinary: Denies: Dysuria Musculoskeletal: Denies: Joint Pain, Joint Tenderness Skin: Denies: Rash, Wounds Neurological: Reports: Tremor. Denies: Balance problems, Blurred vision, Double vision, Change in Speech Psychiatric: Denies: Anxiety, Depression Comment: All review of systems are negative except as mentioned in the history of present illness and the other review of systems. VTE Information - Inpt Only VTE Present on Admission: No VTE Pharm Prophylaxis ordered?: Yes Patient Problems: Active and Suspected Problems (Last Reviewed 07/13/17 @ 17:28 by Apryl Schwartz NP-C) Suicidal ideation (Acute) Alcohol withdrawal (Acute) - Physical Exam General: Alert, Cooperative, No apparent distress HEENT: Atraumatic, Normocephalic Oral: Moist Mucosa, No Gingival or Mucosal Lesions/ Ulcerations Neck: No Nodes, Thyroid Normal Size and Texture Lungs: Clear to auscultation, Normal air movement, No rhonchi, No wheeze Cardiovascular: Regular rate, Regular Rhythm, Normal S1, Normal S2, No murmurs Abdomen: Bowel Sounds Present, Soft, Non Tender, Non-Distended, No Hepato-splenomegaly Extremities: No edema, No Calf Tenderness Skin: No rashes, No breakdown Musculoskeletal: No Tenderness to Palpation of Joints or Extremities, No Muscle Wasting Neurological: Neuro grossly intact, Sensory exam intact to light touch and pain Psych/Mental Status: Normal Affect, Appropriate Vital Signs Temp Pulse Resp BP Pulse Ox 37.1 C 87 15 145/95 H 95 01/31/18 18:06 01/31/18 18:06 01/31/18 18:06 01/31/18 18:06 01/31/18 18:06 Oxygen Delivery Method Room Air Weight: 79.7 kg Body Mass Index (BMI) 28.3 Laboratory Tests Past 24 Hrs 01/30/18 01/30/18 01/30/18 20:10 20:10 20:10 WBC 4.6 RBC 4.92 Hgb 15.7 Hct 43.6 MCV 88.6 MCH 31.9 MCHC 36.0 RDW 16.1 H RDW Differential 52.0 H Plt Count 251 MPV 8.5 Immature Gran % (Auto) 0.200 Neut % (Auto) 43.0 L Lymph % (Auto) 45.4 H [place] % (Auto) 10.0 Eos % (Auto) 0.7 Baso % (Auto) 0.7 Absolute Neuts (auto) 2.0 Absolute Lymphs (auto) 2.08 Total Counted Not Reportable PT INR APTT Sodium 133 L Potassium 3.9 Chloride 98 Carbon Dioxide 22.0 Anion Gap 13 BUN 12 Creatinine 0.99 Estim Creat Clear Calc 77.87 Est GFR (MDRD) Af Amer 101 Est GFR (MDRD) Non-Af 84 BUN/Creatinine Ratio 12.1 Glucose 124 H Calcium 7.2 L Total Bilirubin 1.40 H Direct Bilirubin 0.46 H AST 421 H ALT 143 H Alkaline Phosphatase 176 H Total Protein 6.9 Albumin 2.9 L Globulin 4.0 Lipase 403 H Urine Opiates Screen Urine Methadone Screen Ur Barbiturates Screen Ur Phencyclidine Scrn Ur Amphetamines Screen U Methamphetamin-MDMA U Benzodiazepines Scrn Urine Cocaine Screen U Cannabinoids Screen Ur Drug Screen Comment Ethyl Alcohol 307.0 H* 01/30/18 01/30/18 01/31/18 20:10 21:00 07:27 WBC RBC Hgb Hct MCV MCH MCHC RDW RDW Differential Plt Count MPV Immature Gran % (Auto) Neut % (Auto) Lymph % (Auto) [place] % (Auto) Eos % (Auto) Baso % (Auto) Absolute Neuts (auto) Absolute Lymphs (auto) Total Counted PT 13.0 INR 1.0 APTT 31.0 Sodium Potassium Chloride Carbon Dioxide Anion Gap BUN Creatinine Estim Creat Clear Calc Est GFR (MDRD) Af Amer Est GFR (MDRD) Non-Af BUN/Creatinine Ratio Glucose Calcium Total Bilirubin Direct Bilirubin AST ALT Alkaline Phosphatase Total Protein Albumin Globulin Lipase Urine Opiates Screen NEGATIVE Urine Methadone Screen NEGATIVE Ur Barbiturates Screen NEGATIVE Ur Phencyclidine Scrn NEGATIVE Ur Amphetamines Screen NEGATIVE U Methamphetamin-MDMA NEGATIVE U Benzodiazepines Scrn NEGATIVE Urine Cocaine Screen NEGATIVE U Cannabinoids Screen POSITIVE H Ur Drug Screen Comment Ethyl Alcohol 136.0 Assessment/Plan All Active Problems (Last Reviewed 07/13/17 @ 17:28 by Apryl Schwartz, MARIA FERNANDA-C) Suicidal ideation (Acute) Alcohol withdrawal (Acute) Alcohol withdrawal (Acute) Acute alcoholic pancreatitis (Resolved) Hypokalemia (Resolved) Hypomagnesemia (Resolved) Pancreatitis (Resolved) 1. Acute alcohol withdrawal Current CIWA score is 11 but some that may be muted given recent Ativan usage I am going to put the patient on as needed Ativan monitor for his response. My hope is that he will not require it and then we can expedite his transfer to the psychiatric hospital but that will be determined. I explained to the patient that his withdrawal symptoms could be severe within a few hours to and from what he tells me, he does not drink that much alcohol and its the low prove kind that somebody at grocery stores. Granted, and that is what he is telling me and certainly could be more and even higher proof alcohol. Thiamine and folate Patient will require additional counseling, to which he has currently. And also other support networks. 2. Suicidal ideation Patient had a very definitive plan about hanging himself in a barn with an orange extension cord This is not the patient's first round of suicidal ideation and has had issues with this in the past. Certainly complicated by his depression and anxiety Patient would not be able to voluntarily be discharged will have to be discharged to psychiatric unit once he is medically stabilized from his alcohol withdrawal. The plan, as from the emergency room should still be to [facility] somehow changes in the interim from the end of [facility]. 3. DVT prophylaxis with Lovenox Code Visit Inpatient E&M: 26089 Init Hosp L3
--- NOTE | 2018-01-31 19:06 | HP.PCM_ITS ---
Problem List (1) Suicidal ideation Status: Acute (2) Alcohol withdrawal Status: Acute History of Present Illness Date of Admission: 01/31/18 Chief Complaint: suicidal ideation. The patient is a 52 year old M who told his that he was going to hang himself in the barn and not to have his by. EMS is sent to his house emergency room. Plan was for the patient to go to inpatient psychiatric unit once his alcohol levels improved as patient was sobered up as his alcohol level was 307. However, the patient had evidence of alcohol withdrawal and did require several doses of Ativan. The facility, [facility], stated that the patient would have to be through his withdrawal before they could accept him as a psychiatric patient. Patient states that he no longer has a gone past and then voluntarily, according him, had his gun removed. But patient stated that he was going to use an order and should extension cord and hitting himself in the rafters of a barn. [] Past Medical History Past Medical History (Chronic Problems): Chronic Problems (Last Reviewed 07/13/17 @ 17:28 by Apryl Schwartz, MARIA FERNANDA-C) GERMANIA (obstructive sleep apnea) (Chronic) AHI overall CMS 5.5 events per hour Essential (primary) hypertension (Chronic) Depression (Chronic) Anxiety (Chronic) Alcoholic hepatitis (Chronic) ETOH abuse (Chronic) Medical History: Medical History (Last Reviewed 01/31/18 @ 18:59 by Adolph Lambert DO) Alcohol withdrawal (Acute) F10.239 Acute alcoholic pancreatitis (Resolved) K85.20 Hypokalemia (Resolved) E87.6 Hypomagnesemia (Resolved) E83.42 Essential (primary) hypertension (Chronic) I10 Depression (Chronic) F32.9 Anxiety (Chronic) F41.9 Alcoholic hepatitis (Chronic) K70.10 Pancreatitis (Resolved) K85.90 ETOH abuse (Chronic) F10.10 Anemia D64.9 GERD (gastroesophageal reflux disease) K21.9 Insomnia G47.00 GERMANIA (obstructive sleep apnea) G47.33 Allergies No Known Allergies Allergy (Verified 01/30/18 19:13) Home Medications: Ambulatory Orders Medication Instructions Recorded Amlodipine [Norvasc] 5 mg PO DAILY 10/15/16 Lisinopril [Zestril] 20 mg PO BID 10/15/16 Metoprolol Succinate 25 mg PO DAILY 10/15/16 Trazodone HCl 50 mg PO QHS PRN 10/15/16 fluoxetine 20 mg capsule 60 mg PO DAILY cap 07/07/17 Pantoprazole Sodium 20 mg PO DAILY 10/31/17 Surgical History: no surgical history Smoking Status: Never smoker Alcohol: Heavy - Drinks 1 pint of low proof vodka per day Drugs: Marijuana - Occasional - *Family History Maternal History Items: Hypertension Paternal History Items: Hypertension Sibling History Items: Hypertension Review of Systems Constitutional: Denies: Anorexia, Chills, Fever Eyes: Denies: Blurred vision, Double vision HEENT: Reports: Head Aches. Denies: Sinus Congestion, Sinus Drainage Cardiovascular: Denies: Chest Pain, Palpitations Respiratory: Denies: Cough, Shortness of breath at rest, Sputum production Gastrointestinal: Reports: Nausea. Denies: Abdominal Pain Genitourinary: Denies: Dysuria Musculoskeletal: Denies: Joint Pain, Joint Tenderness Skin: Denies: Rash, Wounds Neurological: Reports: Tremor. Denies: Balance problems, Blurred vision, Double vision, Change in Speech Psychiatric: Denies: Anxiety, Depression Comment: All review of systems are negative except as mentioned in the history of present illness and the other review of systems. VTE Information - Inpt Only VTE Present on Admission: No VTE Pharm Prophylaxis ordered?: Yes Patient Problems: Active and Suspected Problems (Last Reviewed 07/13/17 @ 17:28 by Apryl Schwartz NP-C) Suicidal ideation (Acute) Alcohol withdrawal (Acute) - Physical Exam General: Alert, Cooperative, No apparent distress HEENT: Atraumatic, Normocephalic Oral: Moist Mucosa, No Gingival or Mucosal Lesions/ Ulcerations Neck: No Nodes, Thyroid Normal Size and Texture Lungs: Clear to auscultation, Normal air movement, No rhonchi, No wheeze Cardiovascular: Regular rate, Regular Rhythm, Normal S1, Normal S2, No murmurs Abdomen: Bowel Sounds Present, Soft, Non Tender, Non-Distended, No Hepato- splenomegaly Extremities: No edema, No Calf Tenderness Skin: No rashes, No breakdown Musculoskeletal: No Tenderness to Palpation of Joints or Extremities, No Muscle Wasting Neurological: Neuro grossly intact, Sensory exam intact to light touch and pain Psych/Mental Status: Normal Affect, Appropriate Vital Signs Temp Pulse Resp BP Pulse Ox 37.1 C 87 15 145/95 H 95 01/31/18 18:06 01/31/18 18:06 01/31/18 18:06 01/31/18 18:06 01/31/18 18:06 Oxygen Delivery Method Room Air Weight: 79.7 kg Body Mass Index (BMI) 28.3 Laboratory Tests Past 24 Hrs 01/30/18 01/30/18 01/30/18 20:10 20:10 20:10 WBC 4.6 RBC 4.92 Hgb 15.7 Hct 43.6 MCV 88.6 MCH 31.9 MCHC 36.0 RDW 16.1 H RDW Differential 52.0 H Plt Count 251 MPV 8.5 Immature Gran % (Auto) 0.200 Neut % (Auto) 43.0 L Lymph % (Auto) 45.4 H [place] % (Auto) 10.0 Eos % (Auto) 0.7 Baso % (Auto) 0.7 Absolute Neuts (auto) 2.0 Absolute Lymphs (auto) 2.08 Total Counted Not Reportable PT INR APTT Sodium 133 L Potassium 3.9 Chloride 98 Carbon Dioxide 22.0 Anion Gap 13 BUN 12 Creatinine 0.99 Estim Creat Clear Calc 77.87 Est GFR (MDRD) Af Amer 101 Est GFR (MDRD) Non-Af 84 BUN/Creatinine Ratio 12.1 Glucose 124 H Calcium 7.2 L Total Bilirubin 1.40 H Direct Bilirubin 0.46 H AST 421 H ALT 143 H Alkaline Phosphatase 176 H Total Protein 6.9 Albumin 2.9 L Globulin 4.0 Lipase 403 H Urine Opiates Screen Urine Methadone Screen Ur Barbiturates Screen Ur Phencyclidine Scrn Ur Amphetamines Screen U Methamphetamin-MDMA U Benzodiazepines Scrn Urine Cocaine Screen U Cannabinoids Screen Ur Drug Screen Comment Ethyl Alcohol 307.0 H* 01/30/18 01/30/18 01/31/18 20:10 21:00 07:27 WBC RBC Hgb Hct MCV MCH MCHC RDW RDW Differential Plt Count MPV Immature Gran % (Auto) Neut % (Auto) Lymph % (Auto) [place] % (Auto) Eos % (Auto) Baso % (Auto) Absolute Neuts (auto) Absolute Lymphs (auto) Total Counted PT 13.0 INR 1.0 APTT 31.0 Sodium Potassium Chloride Carbon Dioxide Anion Gap BUN Creatinine Estim Creat Clear Calc Est GFR (MDRD) Af Amer Est GFR (MDRD) Non-Af BUN/Creatinine Ratio Glucose Calcium Total Bilirubin Direct Bilirubin AST ALT Alkaline Phosphatase Total Protein Albumin Globulin Lipase Urine Opiates Screen NEGATIVE Urine Methadone Screen NEGATIVE Ur Barbiturates Screen NEGATIVE Ur Phencyclidine Scrn NEGATIVE Ur Amphetamines Screen NEGATIVE U Methamphetamin-MDMA NEGATIVE U Benzodiazepines Scrn NEGATIVE Urine Cocaine Screen NEGATIVE U Cannabinoids Screen POSITIVE H Ur Drug Screen Comment Ethyl Alcohol 136.0 Assessment/Plan All Active Problems (Last Reviewed 07/13/17 @ 17:28 by Apryl Schwartz, MARIA FERNANDA-C) Suicidal ideation (Acute) Alcohol withdrawal (Acute) Alcohol withdrawal (Acute) Acute alcoholic pancreatitis (Resolved) Hypokalemia (Resolved) Hypomagnesemia (Resolved) Pancreatitis (Resolved) 1. Acute alcohol withdrawal * Current CIWA score is 11 but some that may be muted given recent Ativan usage * I am going to put the patient on as needed Ativan monitor for his response. My hope is that he will not require it and then we can expedite his transfer to the psychiatric hospital but that will be determined. I explained to the patient that his withdrawal symptoms could be severe within a few hours to and from what he tells me, he does not drink that much alcohol and its the low prove kind that somebody at grocery stores. Granted, and that is what he is telling me and certainly could be more and even higher proof alcohol. * Thiamine and folate * Patient will require additional counseling, to which he has currently. And also other support networks. 2. Suicidal ideation * Patient had a very definitive plan about hanging himself in a barn with an orange extension cord * This is not the patient's first round of suicidal ideation and has had issues with this in the past. Certainly complicated by his depression and anxiety * Patient would not be able to voluntarily be discharged will have to be discharged to psychiatric unit once he is medically stabilized from his alcohol withdrawal. * The plan, as from the emergency room should still be to [facility] somehow changes in the interim from the end of [facility]. 3. DVT prophylaxis with Lovenox Code Visit Inpatient E&M: 91487 Init Hosp L3
--- NOTE | 2018-01-31 19:38 | NURSING ---
Called ER to report readiness for patient at 19:35.
--- NOTE | 2018-01-31 20:20 | NURSING ---
Pt arrived to floor at 20:00 on spiral tube winder helper. Was ambulatory to bed w/o incident. Cardiac monitoring continued. Oriented pt to room and policies with suicidal watch and alcohol withdrawl. Pt states understanding.
[2018-01-31] MEDS: traZODone 50 MG Tablet PO (21:26)
[2018-01-31 22:23] LABS: M R Staph aureus DNA By PCR Negative (Negative); Probe Check PASS; Specimen Processing Control PASS
[2018-02-01] VITALS (21 sets, daily range): BP systolic 118–153; BP diastolic 82–103; PULSE 62–91; RESP 14–24; TEMP 36.1–36.6; O2SAT 94–99
--- NOTE | 2018-02-01 06:57 | NURSING ---
This RN reviewed and agrees with Reuben Bryan RN charting
[2018-02-01] MEDS: LORazepam 1 MG Tablet 2 MG PO ×3 (08:44→19:24)
[2018-02-01] MEDS: FLUoxetine 20 MG Capsule 60 MG PO (08:46)
[2018-02-01] MEDS: Thiamine Hydrochloride 100 MG Tablet PO ×2 (08:46→17:25)
[2018-02-01] MEDS: Lisinopril 20 MG Tablet PO ×2 (08:46→21:05)
[2018-02-01] MEDS: amLODIPine 5 MG Tablet PO (08:46)
[2018-02-01] MEDS: Folic Acid 1 MG Tablet PO (08:46)
[2018-02-01] MEDS: Multivitamins,Therapeutic Tablet 1 TABLET PO (08:47)
[2018-02-01] MEDS: Pantoprazole Sodium 20 MG Tablet PO (08:47)
[2018-02-01] MEDS: Metoprolol(XL)Succ 25 MG Tablet PO (08:47)
[2018-02-01] MEDS: Enoxaparin 40 MG/0.4 ML Syringe SC (08:47)
[2018-02-01] MEDS: Ibuprofen 600 MG Tablet PO (11:18)
--- NOTE | 2018-02-01 18:45 | PN_ITS ---
Patient Problems: Active and Suspected Problems (Last Updated 02/01/18 @ 06:34 by Sharon Bryan ) Suicidal ideation (Acute) Alcohol withdrawal (Acute) Sleep apnea (Acute) Home CPAP for HS Subjective: Patient was seen and examined today, he is still having quite a bit of tremors and restlessness. Patient is not confused however. Patient's liver enzymes were elevated when evaluated in the emergency room, I will repeat his liver enzymes tomorrow, we are currently awaiting medical stabilization for crisis to see the patient. - Physical Exam General: Alert, Oriented x3, Cooperative, No apparent distress, Well developed, Well nourished HEENT: Atraumatic, PERRLA, EOMI, Normocephalic Oral: Moist Mucosa Neck: Supple, No JVD, Negative Carotid Bruits, No Nuchal Rigidity, Trachea Midline, Thyroid Normal Size and Texture Lungs: Clear to auscultation, Normal air movement, No rhonchi, No wheeze, No rales Cardiovascular: Regular rate, Regular Rhythm, Normal S1, Normal S2, No murmurs, No Ectopic Activity, PMI Normal, No rub noted, No Gallop Abdomen: Bowel Sounds Present, Soft, Non Tender, Non-Distended, No hernias noted Extremities: No clubbing, No cyanosis, No edema, Capillary Refill Less than 3 Seconds Skin: No rashes, No breakdown Musculoskeletal: No Tenderness to Palpation of Joints or Extremities Neurological: Cranial nerves II-XII grossly intact, Neuro grossly intact, Sensory exam intact to light touch and pain, Coordination normal, - - Mild to moderate tremor is noted Psych/Mental Status: Appropriate, Anxious, Restless Vital Signs Temp Pulse Resp BP Pulse Ox 97.9 F 72 24 H 143/96 H 95 02/01/18 15:45 02/01/18 16:49 02/01/18 16:49 02/01/18 16:49 02/01/18 16:49 Oxygen Delivery Method Room Air Weight: 79.9 kg Body Mass Index (BMI) 28.3 Intake and Output for Last 24 Hours 01/30/18 01/31/18 02/01/18 23:59 23:59 23:59 Intake Total 480 / 480 1100 / 1100 Output Total 850 / 850 Balance 480 / 480 250 / 250 Laboratory Tests Past 24 Hrs 01/31/18 20:30 MRSA (PCR) Negative Medical Necessity - Tobacco Use Smoking Status: Never smoker Assessment/Plan All Active Problems (Last Updated 02/01/18 @ 06:34 by Sharon Bryan) Suicidal ideation (Acute) Alcohol withdrawal (Acute) Sleep apnea (Acute) Alcohol withdrawal (Acute) Acute alcoholic pancreatitis (Resolved) Hypokalemia (Resolved) Hypomagnesemia (Resolved) Pancreatitis (Resolved) #1 acute alcohol withdrawal-continue present medications #2 alcoholic hepatitis-repeat liver enzymes tomorrow #3 major depressive disorder #4 suicidal ideation #5 chronic alcoholism Code Visit Inpatient E&M: 00779 Subs Hosp L2
[2018-02-01] MEDS: traZODone 50 MG Tablet PO (21:05)
[2018-02-02 04:28] VITALS: BP 133/90; PULSE 78; RESP 16; TEMP 36.1; O2SAT 97
[2018-02-02 08:27] VITALS: BP 157/96; PULSE 77; RESP 16; TEMP 36.4; O2SAT 96
[2018-02-02] MEDS: LORazepam 1 MG Tablet 2 MG PO ×4 (08:35→19:44)
[2018-02-02] MEDS: Thiamine Hydrochloride 100 MG Tablet PO ×2 (08:36→17:57)
[2018-02-02] MEDS: Multivitamins,Therapeutic Tablet 1 TABLET PO (08:36)
[2018-02-02] MEDS: amLODIPine 5 MG Tablet PO (08:36)
[2018-02-02] MEDS: Pantoprazole Sodium 20 MG Tablet PO (08:36)
[2018-02-02] MEDS: Folic Acid 1 MG Tablet PO (08:36)
[2018-02-02] MEDS: FLUoxetine 20 MG Capsule 60 MG PO (08:36)
[2018-02-02 08:37] VITALS: PULSE 74
[2018-02-02] MEDS: 0.9% NaCl Peripheral Flush Adult/Peds IV (08:37)
[2018-02-02] MEDS: Metoprolol(XL)Succ 25 MG Tablet PO (08:37)
[2018-02-02] MEDS: Lisinopril 20 MG Tablet PO ×2 (08:37→21:14)
[2018-02-02] MEDS: Enoxaparin 40 MG/0.4 ML Syringe SC (08:37)
--- NOTE | 2018-02-02 09:39 | CASEMGMT ---
Addendum entered by Ruchi Vail 02/02/18 10:48: Renzo Early came to see pt from crisis, he is going to work on placement from the office and will call ICU once he has more information regarding where pt will go. Renzo asked SW to check on Medicaid application, SW spoke w/Priyanka in our financial dept--she checked and Medicaid is not yet active. SW let Renzo know this. SW remains available for any additional assistance. CLAUDE Kraus, RAW SAMPLER Original Note: SYED spoke w/Dr. Sandoval, pt is ready for discharge today, can be seen by crisis. SYED called [facility], spoke w/Paresh Early, he will be here to see pt within the hour. SW spoke w/pt at the bedside, let pt know that Paresh from crisis will see pt today. Pt states understanding. SW also asked pt about self pay status. Pt states he just applied for Medicaid online earlier this week. SW gave pt additional resources, including [employer], [facility], [facility], dental clinics, prescription assistance programs, and [employer] subsidized taxi program. Also, Alma Rosa from the financial dept came up to see pt and will assist pt in completing the HCAP form. No further social service needs, pt now awaiting assessment by crisis. CLAUDE Kraus, RAW SAMPLER
[2018-02-02] MEDS: Ibuprofen 600 MG Tablet PO (12:35)
--- NOTE | 2018-02-02 13:04 | CASEMGMT ---
Pt's sister Marleny Forde(work: [phone], home: [phone]) called in to Kacey at [facility] stating pt cannot go back to his apartment. SYED left a message for Paresh Early at [facility] letting him know this information. SYED spoke w/pt's RN, she states pt is already aware, has mentioned a few times he is not welcome back home. CLAUDE Kraus, HOUSEKEEPING AND LAUNDRY TEAM LEADER
--- NOTE | 2018-02-02 13:30 | CHAPLAIN ---
Type of Pastoral Visit _x__ Initial Visit ___ Follow-up Visit ___ On-call Visit ___ General Patient Visit ___ Spiritual Assessment ___ Family Conference ___ Bereavement ___ Rapid Response ___ Code Blue ___ Other (describe below) Pastoral Care Referral From _x__ Patient ___ Family _x__ Nurse ___ Physician ___ Packaging Engineer ___ Pleater ___ Other (describe below) Sacrament/Intervention _x__ Active listening ___ Anointing ___ Pentecostalism ___ Bereavement ___ Communion _x__ Niya exploration ___ _x__ Life review _x__ Prayer ___ Reconciliation ___ Sacrament of Sick _x__ Supportive presence ___ Wedding ___ Other (describe below) Pastoral Comments patient took a deep breath and shed a few tears before he began to speak; pt was forthright in speaking about his alcoholic problem, his multiple personal and financial problems, his desire to commit suicide but inability due to excessive drinking, his concerns about going to a treatment place that will only tackle his alcoholism and not his deeper issues of depression; and his past sobriety through AA, spiritual insights, and new niya in [place]; pt is tearful, has shaky hands, sighs, and moments of silence during this encounter; pt is affirmed to start again, see what is his first duty, connect with who and what is supportive and helpful, and regain hope for life; prayer welcomed; spiritual support desired
[2018-02-02 13:32] VITALS: BP 130/85; PULSE 77; RESP 16; TEMP 36.7; O2SAT 98
--- NOTE | 2018-02-02 18:23 | PCM.PROGNOTE ---
Patient Problems: Active and Suspected Problems (Last Updated 02/01/18 @ 06:34 by Sharon Bryan) Suicidal ideation (Acute) Alcohol withdrawal (Acute) Sleep apnea (Acute) Home CPAP for HS Subjective: Patient was seen and examined today, he is less anxious and tremorous, crisis saw patient today and there will be a bed available for the patient at [place] but not until 02/04/18. - Physical Exam General: Alert, Oriented x3, Cooperative, No apparent distress, Well developed, Well nourished HEENT: Atraumatic, PERRLA, EOMI, Normocephalic Oral: Moist Mucosa Neck: Supple, No JVD, No Nuchal Rigidity, Trachea Midline, Thyroid Normal Size and Texture Lungs: Clear to auscultation, Normal air movement, No rhonchi, No wheeze, No rales Cardiovascular: Regular rate, Regular Rhythm, Normal S1, Normal S2, No murmurs, No Ectopic Activity, PMI Normal, No rub noted, No Gallop Abdomen: Bowel Sounds Present, Soft, Non Tender, Non-Distended, No hernias noted Extremities: No clubbing, No cyanosis, No edema, Capillary Refill Less than 3 Seconds Skin: No rashes, No breakdown Musculoskeletal: No Tenderness to Palpation of Joints or Extremities Neurological: Cranial nerves II-XII grossly intact, Neuro grossly intact, Muscle tone normal, Sensory exam intact to light touch and pain, Coordination normal Psych/Mental Status: Normal Affect, Appropriate, Alert and oriented to time, place, person, mood and affect Vital Signs Temp Pulse Resp BP Pulse Ox 98.0 F 77 16 130/85 H 98 02/02/18 13:32 02/02/18 13:32 02/02/18 13:32 02/02/18 13:32 02/02/18 13:32 Oxygen Delivery Method Room Air Weight: 79.9 kg Body Mass Index (BMI) 28.3 Intake and Output for Last 24 Hours 01/31/18 02/01/18 02/02/18 23:59 23:59 23:59 Intake Total 480 / 480 1100 / 1100 1560 / 1560 Output Total 850 / 850 700 / 700 Balance 480 / 480 250 / 250 860 / 860 Medical Necessity - Tobacco Use Smoking Status: Never smoker Assessment/Plan All Active Problems (Last Updated 02/01/18 @ 06:34 by Sharon Bryan) Suicidal ideation (Acute) Alcohol withdrawal (Acute) Sleep apnea (Acute) Alcohol withdrawal (Acute) Acute alcoholic pancreatitis (Resolved) Hypokalemia (Resolved) Hypomagnesemia (Resolved) Pancreatitis (Resolved) #1 acute alcohol withdrawal-continue present medications #2 alcoholic hepatitis-repeat liver enzymes #3 major depressive disorder #4 suicidal ideation #5 chronic alcoholism Code Visit Inpatient E&M: 67006 Subs Hosp L2
--- NOTE | 2018-02-02 18:39 | PN_ITS ---
Patient Problems: Active and Suspected Problems (Last Updated 02/01/18 @ 06:34 by Sharon Bryan ) Suicidal ideation (Acute) Alcohol withdrawal (Acute) Sleep apnea (Acute) Home CPAP for HS Subjective: Patient was seen and examined today, he is less anxious and tremorous, crisis saw patient today and there will be a bed available for the patient at [place] but not until 02/04/18. - Physical Exam General: Alert, Oriented x3, Cooperative, No apparent distress, Well developed, Well nourished HEENT: Atraumatic, PERRLA, EOMI, Normocephalic Oral: Moist Mucosa Neck: Supple, No JVD, No Nuchal Rigidity, Trachea Midline, Thyroid Normal Size and Texture Lungs: Clear to auscultation, Normal air movement, No rhonchi, No wheeze, No rales Cardiovascular: Regular rate, Regular Rhythm, Normal S1, Normal S2, No murmurs, No Ectopic Activity, PMI Normal, No rub noted, No Gallop Abdomen: Bowel Sounds Present, Soft, Non Tender, Non-Distended, No hernias noted Extremities: No clubbing, No cyanosis, No edema, Capillary Refill Less than 3 Seconds Skin: No rashes, No breakdown Musculoskeletal: No Tenderness to Palpation of Joints or Extremities Neurological: Cranial nerves II-XII grossly intact, Neuro grossly intact, Muscle tone normal, Sensory exam intact to light touch and pain, Coordination normal Psych/Mental Status: Normal Affect, Appropriate, Alert and oriented to time, place, person, mood and affect Vital Signs Temp Pulse Resp BP Pulse Ox 98.0 F 77 16 130/85 H 98 02/02/18 13:32 02/02/18 13:32 02/02/18 13:32 02/02/18 13:32 02/02/18 13:32 Oxygen Delivery Method Room Air Weight: 79.9 kg Body Mass Index (BMI) 28.3 Intake and Output for Last 24 Hours 01/31/18 02/01/18 02/02/18 23:59 23:59 23:59 Intake Total 480 / 480 1100 / 1100 1560 / 1560 Output Total 850 / 850 700 / 700 Balance 480 / 480 250 / 250 860 / 860 Medical Necessity - Tobacco Use Smoking Status: Never smoker Assessment/Plan All Active Problems (Last Updated 02/01/18 @ 06:34 by Sharon Bryan) Suicidal ideation (Acute) Alcohol withdrawal (Acute) Sleep apnea (Acute) Alcohol withdrawal (Acute) Acute alcoholic pancreatitis (Resolved) Hypokalemia (Resolved) Hypomagnesemia (Resolved) Pancreatitis (Resolved) #1 acute alcohol withdrawal-continue present medications #2 alcoholic hepatitis-repeat liver enzymes #3 major depressive disorder #4 suicidal ideation #5 chronic alcoholism Code Visit Inpatient E&M: 60874 Subs Hosp L2
[2018-02-02 19:47] VITALS: BP 136/93; PULSE 72; RESP 18; TEMP 36.4; O2SAT 97
[2018-02-02] MEDS: hydrOXYzine PAM 25 MG Capsule 50 MG PO (21:14)
[2018-02-02] MEDS: traZODone 50 MG Tablet PO (21:14)
[2018-02-03 02:00] VITALS: BP 136/89; PULSE 59; RESP 18; TEMP 36.2; O2SAT 97
[2018-02-03 04:29] LABS: AST(SGOT) 187 U/L (15-37); Alanine Aminotransfer ALT/SGPT 116 U/L (16-61); Alkaline Phosphatase 180 U/L (45-117); Bilirubin, Direct 0.66 mg/dL (0.00-0.30); Globulin 4.1 g/dL (2.2-4.2); Protein, Total 7.1 g/dL (6.4-8.2)
[2018-02-03 07:23] VITALS: BP 148/91; PULSE 63; RESP 16; TEMP 36.4; O2SAT 97
[2018-02-03] MEDS: amLODIPine 5 MG Tablet PO (08:59)
[2018-02-03 09:00] VITALS: BP 148/91; PULSE 63
[2018-02-03] MEDS: Lisinopril 20 MG Tablet PO ×2 (09:00→21:44)
[2018-02-03] MEDS: Metoprolol(XL)Succ 25 MG Tablet PO (09:00)
[2018-02-03] MEDS: Pantoprazole Sodium 20 MG Tablet PO (09:00)
[2018-02-03] MEDS: Multivitamins,Therapeutic Tablet 1 TABLET PO (09:00)
[2018-02-03] MEDS: Folic Acid 1 MG Tablet PO (09:01)
[2018-02-03] MEDS: FLUoxetine 20 MG Capsule 60 MG PO (09:01)
[2018-02-03] MEDS: Enoxaparin 40 MG/0.4 ML Syringe SC (09:02)
[2018-02-03] MEDS: Thiamine Hydrochloride 100 MG Tablet PO ×2 (09:02→18:14)
[2018-02-03 12:41] VITALS: TEMP 36.5
[2018-02-03] MEDS: Dicyclomine 10 MG Capsule 20 MG PO (12:52)
[2018-02-03] MEDS: Acetaminophen 325 MG Tablet 650 MG PO (12:52)
[2018-02-03] MEDS: LORazepam 1 MG Tablet 2 MG PO ×2 (12:54→20:00)
--- NOTE | 2018-02-03 12:56 | NURSING ---
Feeling Blah. Nurse asked to further explain what blah meant, pt stated he felt hot and had tremors. This nurse did the CIWA assessment and pt scored 15. This nurse talked with Preethi, Primary Nurse for pt and agreed to go ahead and medicate pt with Ativan and Tylenol for Anxiety and MALCOLM.
[2018-02-03 14:00] VITALS: BP 144/94; PULSE 70; RESP 16; TEMP 36.6; O2SAT 97
--- NOTE | 2018-02-03 14:53 | PN_ITS ---
Patient Problems: Active and Suspected Problems (Last Updated 02/01/18 @ 06:34 by Sharon Bryan ) Suicidal ideation (Acute) Alcohol withdrawal (Acute) Sleep apnea (Acute) Home CPAP for HS Subjective: Patient seen and examined today, he does not have any visible tremors, patient voices no complaints of anxiety - Physical Exam General: Alert, Oriented x3, Cooperative HEENT: Atraumatic, PERRLA, EOMI, Normocephalic Oral: Moist Mucosa Neck: Supple, No JVD, No Nuchal Rigidity, Trachea Midline, Thyroid Normal Size and Texture Lungs: Clear to auscultation, Normal air movement, No rhonchi, No wheeze, No rales Cardiovascular: Regular rate, Regular Rhythm, Normal S1, Normal S2, No murmurs, No Ectopic Activity, PMI Normal, No rub noted, No Gallop Abdomen: Bowel Sounds Present, Soft, Non Tender, Non-Distended, No hernias noted Extremities: No clubbing, No cyanosis, No edema, Capillary Refill Less than 3 Seconds Skin: No rashes, No breakdown Musculoskeletal: No Tenderness to Palpation of Joints or Extremities Neurological: Cranial nerves II-XII grossly intact, Neuro grossly intact, Sensory exam intact to light touch and pain, Coordination normal Psych/Mental Status: Normal Affect, Appropriate, Alert and oriented to time, place, person, mood and affect Vital Signs Temp Pulse Resp BP Pulse Ox 97.8 F 70 16 144/94 H 97 02/03/18 14:00 02/03/18 14:00 02/03/18 14:00 02/03/18 14:00 02/03/18 14:00 Oxygen Delivery Method Room Air Weight: 79.9 kg Body Mass Index (BMI) 28.3 Intake and Output for Last 24 Hours 02/01/18 02/02/18 02/03/18 23:59 23:59 23:59 Intake Total 1100 / 1100 1860 / 1860 830 / 830 Output Total 850 / 850 1200 / 1200 700 / 700 Balance 250 / 250 660 / 660 130 / 130 Laboratory Tests Past 24 Hrs 02/03/18 03:58 Total Bilirubin 1.20 H Direct Bilirubin 0.66 H AST 187 H ALT 116 H Alkaline Phosphatase 180 H Total Protein 7.1 Albumin 3.0 L Globulin 4.1 Medical Necessity - Tobacco Use Smoking Status: Never smoker Assessment/Plan All Active Problems (Last Updated 02/01/18 @ 06:34 by Sharon Bryan) Suicidal ideation (Acute) Alcohol withdrawal (Acute) Sleep apnea (Acute) Alcohol withdrawal (Acute) Acute alcoholic pancreatitis (Resolved) Hypokalemia (Resolved) Hypomagnesemia (Resolved) Pancreatitis (Resolved) #1 acute alcohol withdrawal-continue present medications #2 alcoholic hepatitis-liver enzymes are improved today #3 major depressive disorder #4 suicidal ideation #5 chronic alcoholism Patient remains medically stable Code Visit Inpatient E&M: 74628 Subs Hosp L2
[2018-02-03 20:00] VITALS: BP 142/94; PULSE 80; RESP 17; TEMP 36.4; O2SAT 97
[2018-02-03] MEDS: traZODone 50 MG Tablet PO (21:43)
[2018-02-03] MEDS: hydrOXYzine PAM 25 MG Capsule 50 MG PO (22:57)
--- NOTE | 2018-02-03 23:00 | NURSING ---
Pt. states that he feels anxious about leaving tomorrow and is having a hard time trying to sleep. Vistaril given to try and help with anxiety and sleep.
[2018-02-04] VITALS (7 sets, daily range): BP systolic 133–164; BP diastolic 74–94; PULSE 56–71; RESP 16–18; TEMP 36.3–36.9; O2SAT 95–98
[2018-02-04 04:27] LABS: Absolute Lymphocyte Count 1.11 X10^3/ul (0.83-4.51); Absolute Neutrophil Count 2.3 X10^3/uL (2.0-7.7); Basophil# 0.02 X10^3/uL; Basophil% 0.5 % (0-1); Eosinophil# 0.12 X10^3/uL; Eosinophils% 3.1 % (0-5); Hemoglobin 13.8 g/dl (13.0-16.5); Lymphocyte # 1.11 X10^3/ul (4.0); Lymphocyte % 28.8 % (19-41); Mean Corp Hgb Conc 34.5 g/gl (32-36); Mean Corpuscular Hgb 32.3 pg (27.0-32.0); Mean Corpuscular Volume 93.7 fL (80-94); Mean Platelet Vol. 9.3 fl (6.2-12.0); Monocyte# 0.34 X10^3/uL; Monocyte% 8.8 % (0-10); Neutrophil # 2.25 X10^3/uL (2.7-7.7); Neutrophil % 58.5 % (47-70); POSITIVE COUNT NO; POSITIVE DIFFERENTIAL NO; POSITIVE MORPHOLOGY NO; Platelet Count 142 K/mm3 (150-450); RBC Distribution Width CV 16.4 % (11.6-14.6); RBC Distribution Width SD 54.7 fl (35.1-43.9); Red Blood Count 4.27 M/mm3 (4.6-6.2); White Blood Count 3.9 K/mm3 (4.4-11.0)
[2018-02-04 04:30] LABS: Red Blood Cells-Urine 0 SEEN /hpf (0-5); White Blood Cells 0 SEEN /hpf (0-5)
[2018-02-04 04:37] LABS: Color, Urine Yellow (Yellow); Glucose, Dipstick Normal (Normal); Ketone-Dipstick Negative (Negative); Leukocyte Esterase-Dipstick Negative /ul (Negative); Nitrite-Dipstick Negative (Negative); Occult Blood-Urine Negative /ul (Negative); Protein-Dipstick 15 mg/dl (Negative); Urine Bilirubin Dipstick Negative (Negative); Urine Clarity Clear (Clear); Urine Urobilinogen 1 mg/dl (Normal); Urine pH 6.5 (5.0 - 8.0)
[2018-02-04 04:39] LABS: Bacteria RARE /hpf (None Seen); Hyaline Cast 0-5 SEEN /lpf (0-5); Mucous, Urine 1+ /hpf (<or=2+); Squamous Epithelial Cells - UA 0-5 SEEN /hpf (0-5)
[2018-02-04 04:45] LABS: Amphetamine Urine VISTA NEGATIVE (<1000 ng/mL); Barbiturate Urine VISTA NEGATIVE (< 200 ng/mL); Benzodiazepine Urine VISTA NEGATIVE (< 200 ng/mL); Cocaine Urine VISTA NEGATIVE (< 300 ng/mL); Ecstacy Urine VISTA NEGATIVE (< 500 ng/mL); Methadone Urine VISTA NEGATIVE (< 300 ng/mL); PCP Urine VISTA NEGATIVE (< 25 ng/mL); THC Urine VISTA POSITIVE (< 50 ng/mL); Vista UDS pH Range 6
[2018-02-04 04:46] LABS: ALB/GLOB Ratio 0.7 RATIO (0.9-2.4); AST(SGOT) 158 U/L (15-37); Alanine Aminotransfer ALT/SGPT 120 U/L (16-61); Albumin, Serum 2.8 g/dL (3.2-5.0); Alkaline Phosphatase 196 U/L (45-117); Anion Gap 11 (5-15); BUN 8 mg/dL (7-18); BUN/Creat Ratio 8.1 RATIO (10-20); Calcium,Total 8.4 mg/dL (8.5-10.1); Chloride 100 mmol/L (98-107); Creatinine, Serum 0.99 mg/dL (0.70-1.30); EST Glomerular Filtration Rate 83 mL/min (>60); Est Glom Filt Rate - Afr Amer 101 mL/min (>60); Estimated Creatinine Clearance 76.98 ml/min; Glucose 135 mg/dL (74-106); Potassium 3.7 mmol/L (3.5-5.1); Protein, Total 6.8 g/dL (6.4-8.2); Sodium Level 138 mmol/L (136-145); Thyroid Stim Hormone (TSH) 1.83 uIU/mL (0.358-3.74)
--- NOTE | 2018-02-04 05:00 | EKG12_ITS ---
Test Reason : AM EKG Blood Pressure : / mmHG Vent. Rate : 061 BPM Atrial Rate : 061 BPM P-R Int : 160 ms QRS Dur : 096 ms QT Int : 480 ms P-R-T Axes : 046 -08 057 degrees QTc Int : 483 ms Normal sinus rhythm Normal ECG Confirmed by JOSE DUDLEY, TJ ([id number]), international editorial producer ROZINA COBIAN ([id number] on 02/09/2018 8:30:44 AM Referred By: TANYA Confirmed By:TJ GARCIA MD
[2018-02-04 05:07] LABS: Alcohol, Blood (Medical)-Serum < 3.0 mg/dL
[2018-02-04] MEDS: Enoxaparin 40 MG/0.4 ML Syringe SC (09:10)
[2018-02-04] MEDS: FLUoxetine 20 MG Capsule 60 MG PO (09:11)
[2018-02-04] MEDS: amLODIPine 5 MG Tablet PO (09:11)
[2018-02-04] MEDS: Lisinopril 20 MG Tablet PO ×2 (09:11→21:33)
[2018-02-04] MEDS: Pantoprazole Sodium 20 MG Tablet PO (09:12)
[2018-02-04] MEDS: Metoprolol(XL)Succ 25 MG Tablet PO (09:12)
[2018-02-04] MEDS: Folic Acid 1 MG Tablet PO (09:12)
[2018-02-04] MEDS: Thiamine Hydrochloride 100 MG Tablet PO (09:13)
[2018-02-04] MEDS: Multivitamins,Therapeutic Tablet 1 TABLET PO (09:13)
[2018-02-04] MEDS: 0.9% NaCl Peripheral Flush Adult/Peds IV (13:17)
[2018-02-04] MEDS: LORazepam 2 MG/ML Syringe IV (13:17)
--- NOTE | 2018-02-04 17:56 | PN_ITS ---
Patient Problems: Active and Suspected Problems (Last Updated 02/01/18 @ 06:34 by Sharon Bryan ) Suicidal ideation (Acute) Alcohol withdrawal (Acute) Subjective: Patient was seen and examined today, I talked briefly with the crisis psychosocial rehabilitation counselor, there is not a bed available at [place] today, we will put in a request for a bed at [place]. Patient has no complaints of any anxiety or tremor at this time - Physical Exam General: Alert, Oriented x3, Cooperative, No apparent distress, Well developed, Well nourished HEENT: Atraumatic, PERRLA, EOMI, Normocephalic Oral: Moist Mucosa Neck: Supple, No JVD, No Nuchal Rigidity, Trachea Midline, Thyroid Normal Size and Texture Lungs: Clear to auscultation, Normal air movement, No rhonchi, No wheeze, No rales Cardiovascular: Regular rate, Regular Rhythm, Normal S1, Normal S2, No murmurs, No Ectopic Activity, PMI Normal, No rub noted, No Gallop Abdomen: Bowel Sounds Present, Soft, Non Tender, Non-Distended, No hernias noted Extremities: No clubbing, No cyanosis, No edema, Capillary Refill Less than 3 Seconds Skin: No rashes, No breakdown Musculoskeletal: No Tenderness to Palpation of Joints or Extremities Neurological: Cranial nerves II-XII grossly intact, Neuro grossly intact, Sensory exam intact to light touch and pain, Coordination normal Psych/Mental Status: Normal Affect, Appropriate, Alert and oriented to time, place, person, mood and affect Vital Signs Temp Pulse Resp BP Pulse Ox 98.1 F 65 16 154/94 H 98 02/04/18 15:00 02/04/18 15:00 02/04/18 15:00 02/04/18 15:00 02/04/18 15:00 Oxygen Delivery Method Room Air Weight: 79.9 kg Body Mass Index (BMI) 28.3 Intake and Output for Last 24 Hours 02/02/18 02/03/18 02/04/18 23:59 23:59 23:59 Intake Total 1860 / 1860 1979 / 1979 560 / 560 Output Total 1200 / 1200 700 / 700 Balance 660 / 660 1280 / 1280 560 / 560 Laboratory Tests Past 24 Hrs 02/04/18 02/04/18 02/04/18 04:05 04:05 04:05 WBC 3.9 L RBC 4.27 L Hgb 13.8 Hct 40.0 MCV 93.7 MCH 32.3 H MCHC 34.5 RDW 16.4 H RDW Differential 54.7 H Plt Count 142 L MPV 9.3 Immature Gran % (Auto) 0.300 Neut % (Auto) 58.5 Lymph % (Auto) 28.8 [place] % (Auto) 8.8 Eos % (Auto) 3.1 Baso % (Auto) 0.5 Absolute Neuts (auto) 2.3 Absolute Lymphs (auto) 1.11 Total Counted Not Reportable Sodium 138 Potassium 3.7 Chloride 100 Carbon Dioxide 27.0 Anion Gap 11 BUN 8 Creatinine 0.99 Estim Creat Clear Calc 76.98 Est GFR (MDRD) Af Amer 101 Est GFR (MDRD) Non-Af 83 BUN/Creatinine Ratio 8.1 L Glucose 135 H Calcium 8.4 L Total Bilirubin 0.70 AST 158 H ALT 120 H Alkaline Phosphatase 196 H Total Protein 6.8 Albumin 2.8 L Globulin 4.0 Albumin/Globulin Ratio 0.7 L TSH 1.83 Urine Color Urine Clarity Urine pH Ur Specific [place] Urine Protein Urine Glucose (UA) Urine Ketones Urine Occult Blood Urine Nitrite Urine Bilirubin Urine Urobilinogen Ur Leukocyte Esterase Urine RBC Urine WBC Ur Squamous Epith Cells Urine Bacteria Hyaline Casts Urine Mucus Urine Opiates Screen Urine Methadone Screen Ur Barbiturates Screen Ur Phencyclidine Scrn Ur Amphetamines Screen U Methamphetamin-MDMA U Benzodiazepines Scrn Urine Cocaine Screen U Cannabinoids Screen Ur Drug Screen Comment Ethyl Alcohol < 3.0 02/04/18 02/04/18 04:25 04:25 WBC RBC Hgb Hct MCV MCH MCHC RDW RDW Differential Plt Count MPV Immature Gran % (Auto) Neut % (Auto) Lymph % (Auto) [place] % (Auto) Eos % (Auto) Baso % (Auto) Absolute Neuts (auto) Absolute Lymphs (auto) Total Counted Sodium Potassium Chloride Carbon Dioxide Anion Gap BUN Creatinine Estim Creat Clear Calc Est GFR (MDRD) Af Amer Est GFR (MDRD) Non-Af BUN/Creatinine Ratio Glucose Calcium Total Bilirubin AST ALT Alkaline Phosphatase Total Protein Albumin Globulin Albumin/Globulin Ratio TSH Urine Color Yellow Urine Clarity Clear Urine pH 6.5 Ur Specific [place] 1.010 Urine Protein 15 H Urine Glucose (UA) Normal Urine Ketones Negative Urine Occult Blood Negative Urine Nitrite Negative Urine Bilirubin Negative Urine Urobilinogen 1 H Ur Leukocyte Esterase Negative Urine RBC 0 SEEN Urine WBC 0 SEEN Ur Squamous Epith Cells 0-5 SEEN Urine Bacteria RARE Hyaline Casts 0-5 SEEN Urine Mucus 1+ Urine Opiates Screen NEGATIVE Urine Methadone Screen NEGATIVE Ur Barbiturates Screen NEGATIVE Ur Phencyclidine Scrn NEGATIVE Ur Amphetamines Screen NEGATIVE U Methamphetamin-MDMA NEGATIVE U Benzodiazepines Scrn NEGATIVE Urine Cocaine Screen NEGATIVE U Cannabinoids Screen POSITIVE H Ur Drug Screen Comment Ethyl Alcohol Medical Necessity - Tobacco Use Smoking Status: Never smoker Assessment/Plan All Active Problems (Last Updated 02/01/18 @ 06:34 by Sharon Bryan) Suicidal ideation (Acute) Alcohol withdrawal (Acute) Sleep apnea (Acute) Alcohol withdrawal (Acute) Acute alcoholic pancreatitis (Resolved) Hypokalemia (Resolved) Hypomagnesemia (Resolved) Pancreatitis (Resolved) #1 acute alcohol withdrawal-continue present medications #2 alcoholic hepatitis-liver enzymes are improved today #3 major depressive disorder #4 suicidal ideation #5 chronic alcoholism Patient remains medically stable Code Visit Inpatient E&M: 95984 Subs Hosp L2
[2018-02-04] MEDS: LORazepam 1 MG Tablet 2 MG PO (19:38)
[2018-02-04] MEDS: hydrOXYzine PAM 25 MG Capsule 50 MG PO (21:33)
[2018-02-04] MEDS: traZODone 50 MG Tablet PO (21:33)
[2018-02-05] VITALS (7 sets, daily range): BP systolic 125–158; BP diastolic 91–104; PULSE 61–95; RESP 16–20; TEMP 36.7–37.1; O2SAT 96–99
[2018-02-05 06:04] LABS: Absolute Lymphocyte Count 1.22 X10^3/ul (0.83-4.51); Absolute Neutrophil Count 2.7 X10^3/uL (2.0-7.7); Basophil# 0.02 X10^3/uL; Basophil% 0.5 % (0-1); Eosinophil# 0.11 X10^3/uL; Eosinophils% 2.5 % (0-5); Hematocrit 39.8 % (40-54); Hemoglobin 13.5 g/dl (13.0-16.5); Lymphocyte # 1.22 X10^3/ul (4.0); Lymphocyte % 27.5 % (19-41); Mean Corp Hgb Conc 33.9 g/gl (32-36); Mean Corpuscular Hgb 31.6 pg (27.0-32.0); Mean Corpuscular Volume 93.2 fL (80-94); Mean Platelet Vol. 9.6 fl (6.2-12.0); Monocyte# 0.41 X10^3/uL; Monocyte% 9.2 % (0-10); Neutrophil # 2.67 X10^3/uL (2.7-7.7); Neutrophil % 60.1 % (47-70); Platelet Count 138 K/mm3 (150-450); RBC Distribution Width CV 16.3 % (11.6-14.6); RBC Distribution Width SD 53.8 fl (35.1-43.9); Red Blood Count 4.27 M/mm3 (4.6-6.2); White Blood Count 4.4 K/mm3 (4.4-11.0)
[2018-02-05 06:11] LABS: POSITIVE COUNT NO; POSITIVE DIFFERENTIAL NO; POSITIVE MORPHOLOGY NO
[2018-02-05] MEDS: Thiamine Hydrochloride 100 MG Tablet PO (08:19)
[2018-02-05] MEDS: Folic Acid 1 MG Tablet PO (08:19)
[2018-02-05] MEDS: Multivitamins,Therapeutic Tablet 1 TABLET PO (08:19)
[2018-02-05] MEDS: Pantoprazole Sodium 20 MG Tablet PO (08:20)
[2018-02-05] MEDS: FLUoxetine 20 MG Capsule 60 MG PO (08:20)
[2018-02-05] MEDS: Lisinopril 20 MG Tablet PO ×2 (08:20→21:23)
[2018-02-05] MEDS: Metoprolol(XL)Succ 25 MG Tablet PO (08:20)
[2018-02-05] MEDS: amLODIPine 5 MG Tablet PO (08:20)
--- NOTE | 2018-02-05 09:35 | NURSING ---
MANAGER [place] in pt room after speaking w/crisis SYED Yoder.
--- NOTE | 2018-02-05 09:57 | CASEMGMT ---
Addendum entered by Keira Florez 02/05/18 10:45: Requested documents faxed to [facility] for medicaid application on behalf of pt. SYED Arana Original Note: Social Work Phone call placed to Renzo Early at the Crisis [facility]. Renzo plans to be in this morning to meet with pt. Per Renzo, there are no current beds at [place] [facility] and he is working on another option for pt. Per pt nurse Preethi, pt continues to have suicidal ideation. SW informed Renzo of this. Nursing made aware of the above. Per Preethi RN, pt with anxiety related to financial issues. SW entered pt room and pt welcoming and agreeable to visit. SW explained that Renzo from Crisis will be coming in this morning to see pt and pt is agreeable. Pt tearful throughout conversation. Expressing anxiety over situation as he is not able to return to his home and is now homeless. Pt with concerns about finances. He states he has spoke with [facility] this morning about Medicaid application which was made on Monday. Pt states he is in the process of gathering the information [facility] is requesting but will need it faxed to [facility] when he obtains it. provided email address and will print and fax documents pt provided to [facility] on behalf of pt. Pt is thankful and states he will email the documents to shortly. Pt also openly verbalizing feelings concerning mental health. SW provided supportive listening and encouraged pt to share these feelings with Renzo when he arrives. Pt stating to SW that staff has asked him if he is suicidal and he states he is not while in the hospital as he feels he is in a safe place. SW inquired if he were to return to the community would he be safe or would he consider suicide. Pt openly states to SW that if he were to return home he would not be safe from harming himself. Nursing notified. Will await visit from Crisis. SYED Arana
--- NOTE | 2018-02-05 13:00 | NURSING ---
aquacultural worker supervisor present and speaking w/pt
[2018-02-05] MEDS: LORazepam 1 MG Tablet 2 MG PO ×2 (14:24→19:42)
--- NOTE | 2018-02-05 20:12 | PN_ITS ---
Patient Problems: Active and Suspected Problems (Last Updated 02/01/18 @ 06:34 by Sharon Bryan ) Suicidal ideation (Acute) Alcohol withdrawal (Acute) Subjective: Patient was seen and examined today, he is exhibiting very little nervousness and restlessness, we are waiting placement in a psychiatric facility at this time, I decided to change his medications up slightly and get rid of the medications he is not currently taking. - Physical Exam General: Alert, Oriented x3, Cooperative, No apparent distress, Well developed HEENT: Atraumatic, PERRLA, EOMI, Normocephalic Oral: Moist Mucosa Neck: Supple, No JVD, No Nuchal Rigidity, Trachea Midline, Thyroid Normal Size and Texture Lungs: Clear to auscultation, Normal air movement, No rhonchi, No wheeze, No rales Cardiovascular: Regular rate, Regular Rhythm, Normal S1, Normal S2, No murmurs, No Ectopic Activity, PMI Normal, No rub noted, No Gallop Abdomen: Bowel Sounds Present, Soft, Non Tender, Non-Distended, No hernias noted Extremities: No clubbing, No cyanosis, No edema, Capillary Refill Less than 3 Seconds Skin: No rashes, No breakdown Neurological: Cranial nerves II-XII grossly intact, Neuro grossly intact, Muscle tone normal, Sensory exam intact to light touch and pain Psych/Mental Status: Normal Affect, Appropriate, Alert and oriented to time, place, person, mood and affect Vital Signs Temp Pulse Resp BP Pulse Ox 98.1 F 91 19 H 147/92 H 98 02/05/18 20:00 02/05/18 20:00 02/05/18 20:00 02/05/18 20:00 02/05/18 20:00 Oxygen Delivery Method Room Air Weight: 79.9 kg Body Mass Index (BMI) 28.3 Intake and Output for Last 24 Hours 02/03/18 02/04/18 02/05/18 23:59 23:59 23:59 Intake Total 1979 / 1979 800 / 800 1100 / 1100 Output Total 700 / 700 Balance 1280 / 1280 800 / 800 1100 / 1100 Laboratory Tests Past 24 Hrs 02/05/18 05:45 WBC 4.4 RBC 4.27 L Hgb 13.5 Hct 39.8 L MCV 93.2 MCH 31.6 MCHC 33.9 RDW 16.3 H RDW Differential 53.8 H Plt Count 138 L MPV 9.6 Immature Gran % (Auto) 0.200 Neut % (Auto) 60.1 Lymph % (Auto) 27.5 [place] % (Auto) 9.2 Eos % (Auto) 2.5 Baso % (Auto) 0.5 Absolute Neuts (auto) 2.7 Absolute Lymphs (auto) 1.22 Total Counted Not Reportable Medical Necessity - Tobacco Use Smoking Status: Never smoker Assessment/Plan All Active Problems (Last Updated 02/01/18 @ 06:34 by Sharon Bryan) Suicidal ideation (Acute) Alcohol withdrawal (Acute) Sleep apnea (Acute) Alcohol withdrawal (Acute) Acute alcoholic pancreatitis (Resolved) Hypokalemia (Resolved) Hypomagnesemia (Resolved) Pancreatitis (Resolved) #1 acute alcohol withdrawal-patient stable at this time, I will place him on q. 4 hour Ativan as needed #2 alcoholic hepatitis #3 major depressive disorder #4 suicidal ideation #5 chronic alcoholism Patient remains medically stable Code Visit Inpatient E&M: 06489 Subs Hosp L2
[2018-02-05] MEDS: Metoprolol Tartrate 50 MG Tablet PO (21:23)
--- NOTE | 2018-02-05 22:31 | NURSING ---
Patient D/C'd voluntarily at this time to [facility] via [facility]. Transfer forms, patient chart information, copy of pink slip and voluntary admission form given to EMS staff. Patient cooperative and transferred out via [facility], with all belongings and home meds.
--- NOTE | 2018-02-06 07:44 | PCM.DC.SUM ---
Discharge Date and Diagnosis Date of Admission: 01/31/18 Date of Discharge: 02/05/18 - Primary Discharge Diagnosis #1 acute alcohol withdrawal #2 alcoholic hepatitis- #3 major depressive disorder #4 suicidal ideation #5 chronic alcoholism #6 hypertension #7 alcohol intoxication - Secondary Discharge Diagnosis Chronic Problems (Last Updated 02/01/18 @ 06:34 by Sharon Bryan) GERMANIA (obstructive sleep apnea) (Chronic) AHI overall CMS 5.5 events per hour Essential (primary) hypertension (Chronic) Depression (Chronic) Anxiety (Chronic) Alcoholic hepatitis (Chronic) ETOH abuse (Chronic) Hospital Course and Treatment Consultations 02/02/18 09:23 Consult: Mental Health/Crisis Routine Reason for consult?: Suicidal ideation, alcohol abuse Date Notified:: 02/02/18 Time notified:: 09:20 Operations: None Procedures: None Summary of Care Provided: The patient is a 53 year old M seen in the emergency room at [facility] with complaints of depression and suicidal ideation. Patient has a history of alcohol abuse. Patient has some social issues that were impacting him-loss of his job, his car, and the fact his is leaving him. He had undergone detox in 2017 previously. Lab in the emergency room showed a normal CBC, chemistry studies were significant for sodium 133, ALT of 143, AST of 421, alkaline phosphatase of 176, bilirubin is 1.4, and lipase was 403. Tox screen was positive for cannabinoids, ethanol level was 307. Patient was given a small dose of Ativan and remained in the emergency room from 01/30/18 until he was finally admitted to the ICU on 01/31/18. [facility] was unable to locate a facility to take the patient due to concerns of alcohol withdrawal, it was noted the patient was becoming more agitated in the emergency room and therefore was admitted to the ICU. Patient was placed on medications in the ICU for alcohol withdrawal, there were no major complications from his alcohol withdrawal, he was then seen by crisis again and there were issues finding a facility to take the patient and so he remained in the hospital for prolonged period of time. Finally, a facility agreed to take the patient and the patient consented to go [facility] 02/05[facility]. He was seen on that date and examined by myself and felt to be stable for transfer to [facility] Medications: Medications to take at Discharge Amlodipine [Norvasc] 5 mg PO DAILY 10/15/16 Lisinopril [Zestril] 20 mg PO BID 10/15/16 Metoprolol Succinate 25 mg PO DAILY 10/15/16 Trazodone HCl 50 mg PO QHS PRN 10/15/16 fluoxetine 20 mg capsule 60 mg PO DAILY cap 07/07/17 Pantoprazole Sodium 20 mg PO DAILY 10/31/17 Primary Care Physician: Enoch Ramirez MD [Primary Care Provider] - Disposition: Psych Hospital or Unit Minutes spent on discharge:: 34 Patient Condition:: Stable Medical Necessity - Tobacco Use Smoking Status: Never smoker Meaningful Use Info Meaningful Use Diagnoses (Choose all that apply): None applicable Code Visit Inpatient E&M: 02987 Disch Hosp
--- NOTE | 2018-02-06 07:52 | DS.PCM_ITS ---
Discharge Date and Diagnosis Date of Admission: 01/31/18 Date of Discharge: 02/05/18 - Primary Discharge Diagnosis #1 acute alcohol withdrawal #2 alcoholic hepatitis- #3 major depressive disorder #4 suicidal ideation #5 chronic alcoholism #6 hypertension #7 alcohol intoxication - Secondary Discharge Diagnosis Chronic Problems (Last Updated 02/01/18 @ 06:34 by Sharon Bryan) GERMANIA (obstructive sleep apnea) (Chronic) AHI overall CMS 5.5 events per hour Essential (primary) hypertension (Chronic) Depression (Chronic) Anxiety (Chronic) Alcoholic hepatitis (Chronic) ETOH abuse (Chronic) Hospital Course and Treatment Consultations 02/02/18 09:23 Consult: Mental Health/Crisis Routine Reason for consult?: Suicidal ideation, alcohol abuse Date Notified:: 02/02/18 Time notified:: 09:20 Operations: None Procedures: None Summary of Care Provided: The patient is a 53 year old M seen in the emergency room at [facility] with complaints of depression and suicidal ideation. Patient has a history of alcohol abuse. Patient has some social issues that were impacting him-loss of his job, his car, and the fact his is leaving him. He had undergone detox in 2017 previously. Lab in the emergency room showed a normal CBC, chemistry studies were significant for sodium 133, ALT of 143, AST of 421, alkaline phosphatase of 176, bilirubin is 1.4, and lipase was 403. Tox screen was positive for cannabinoids, ethanol level was 307. Patient was given a small dose of Ativan and remained in the emergency room from 01/30/18 until he was finally admitted to the ICU on 01/31/18. [facility] was unable to locate a facility to take the patient due to concerns of alcohol withdrawal, it was noted the patient was becoming more agitated in the emergency room and therefore was admitted to the ICU. Patient was placed on medications in the ICU for alcohol withdrawal, there were no major complications from his alcohol withdrawal, he was then seen by crisis again and there were issues finding a facility to take the patient and so he remained in the hospital for prolonged period of time. Finally, a facility agreed to take the patient and the patient consented to go to [facility] on 02/05/18. He was seen on that date and examined by myself and felt to be stable for transfer to [facility] Medications: Medications to take at Discharge Amlodipine [Norvasc] 5 mg PO DAILY 10/15/16 Lisinopril [Zestril] 20 mg PO BID 10/15/16 Metoprolol Succinate 25 mg PO DAILY 10/15/16 Trazodone HCl 50 mg PO QHS PRN 10/15/16 fluoxetine 20 mg capsule 60 mg PO DAILY cap 07/07/17 Pantoprazole Sodium 20 mg PO DAILY 10/31/17 Primary Care Physician: Enoch Ramirez MD [Primary Care Provider] - Disposition: Psych Hospital or Unit Minutes spent on discharge:: 34 Patient Condition:: Stable Medical Necessity - Tobacco Use Smoking Status: Never smoker Meaningful Use Info Meaningful Use Diagnoses (Choose all that apply): None applicable Code Visit Inpatient E&M: 45396 Disch Hosp
== END 2018-02-05 22:30 | DRG 897 ==
LOC: ED 01-31 10:39 → ICU 01-31 19:32
PROVIDERS: Emergency Medicine; Emergency Provider Emergency Medicine; Family Provider Family Medicine; PCP Family Medicine; Visit Provider Internal Medicine
DX: F10.239 Alcohol dependence with withdrawal, unspecified (principal); R45.851 Suicidal ideations; G47.33 Obstructive sleep apnea (adult) (pediatric); I10 Essential (primary) hypertension; F32.9 Major depressive disorder, single episode, unspecified; F41.9 Anxiety disorder, unspecified; K70.10 Alcoholic hepatitis without ascites; Y90.8 Blood alcohol level of 240 mg/100 ml or more
CPT/HCPCS: 80048; 80053; 80076; 80307; 80320; 81001; 83690; 84443; 85025; 85610; 85730; 87641; 93005; 97802; 99285; J7030; A4216; G0480

== ENCOUNTER 2018-07-12 13:06 | Inpatient (IN) | payer MEDICAID, SELFPAY ==
[2018-07-12 13:25] VITALS: BMI 27.5
[2018-07-12 13:50] VITALS: BP 138/86; PULSE 82; RESP 16; TEMP 36.9
[2018-07-12] MEDS: chlordiazePOXIDE 25 MG Capsule PO ×2 (14:55→20:21)
--- NOTE | 2018-07-12 16:12 | PCM.HP.STD ---
Problem List (1) Alcohol withdrawal Status: Acute Qualifiers: Complication of substance-induced condition: uncomplicated Qualified Code(s): F10.230 - Alcohol dependence with withdrawal, uncomplicated History of Present Illness Date of Admission: 07/12/18 Chief Complaint: Alcohol withdrawal The patient is a 53 year old M who presented to [facility] office today with complaints of alcohol withdrawal. Patient complains of nausea, tremor, anxiety, and headache. His last drink was this morning-he drank 1 pint of low alcohol vodka. Patient denies any other drug use, he has been through alcohol detox programs before-patient stated that he was sober for 150 days but 2 weeks ago he had personal stress with the breakup of his marriage and he began drinking alcohol again. Patient's CIWA score was 20. Patient will be directly admitted into the medical stabilization program on MedSur 2 for acute alcohol withdrawal. Past Medical History Past Medical History (Chronic Problems): Chronic Problems (Last Updated 02/01/18 @ 06:34 by Sharon Bryan) GERMANIA (obstructive sleep apnea) (Chronic) AHI overall CMS 5.5 events per hour Sleep apnea (Chronic) Home CPAP for HS Essential (primary) hypertension (Chronic) Depression (Chronic) Anxiety (Chronic) Alcoholic hepatitis (Chronic) ETOH abuse (Chronic) Medical History: Medical History (Last Updated 02/01/18 @ 06:34 by Sharon Bryan) Sleep apnea (Chronic) G47.30 Home CPAP for HS Alcohol withdrawal (Acute) F10.239 Acute alcoholic pancreatitis (Resolved) K85.20 Hypokalemia (Resolved) E87.6 Hypomagnesemia (Resolved) E83.42 Essential (primary) hypertension (Chronic) I10 Depression (Chronic) F32.9 Anxiety (Chronic) F41.9 Alcoholic hepatitis (Chronic) K70.10 Pancreatitis (Resolved) K85.90 ETOH abuse (Chronic) F10.10 Anemia D64.9 GERD (gastroesophageal reflux disease) K21.9 Insomnia G47.00 GERMANIA (obstructive sleep apnea) G47.33 Allergies No Known Allergies Allergy (Verified 01/30/18 19:13) Home Medications: Ambulatory Orders Medication Instructions Recorded Amlodipine [Norvasc] 5 mg PO DAILY 10/15/16 Lisinopril [Zestril] 20 mg PO BID 10/15/16 Metoprolol Succinate 25 mg PO DAILY 10/15/16 Bupropion HCl [Bupropion Xl] 300 mg PO 169907/12/18 Desvenlafaxine [Desvenlafaxine ER] 50 mg PO 169907/12/18 Lurasidone HCl [Latuda] 40 mg PO 169907/12/18 Multivit-Min/FA/Lycopen/Lutein 1 each PO DAILY 07/12/18 [Certavite Sr-Antioxidant Tab] [place]-3 Fatty Acids/Fish Oil 1 each PO DAILY 07/12/18 [[place] 3 1,000 mg Softgel] Pantoprazole Sodium [Protonix] 40 mg PO DAILY 07/12/18 Thiamine HCl [Vitamin B-1] 100 mg PO DAILY 07/12/18 traZODone [Desyrel] 100 mg PO QHS 07/12/18 Surgical History: no surgical history Psychiatric History: Bipolar Lives: Alone Smoking Status: Former smoker Tobacco Use: Cigars Alcohol: Heavy Drugs: None - *Family History Maternal History Items: Hypertension Paternal History Items: Hypertension Sibling History Items: Hypertension Review of Systems Constitutional: Reports: Malaise. Denies: Anorexia, Chills, Fever, Night Sweats, Weakness, Weight Change Eyes: Denies: Cataracts, Conjunctivae Inflammation, Double vision, Drainage HEENT: Denies: Difficulty Swallowing, Dysphasia, Ear Pain, Eye Pain, Hearing Changes, Nasal bleeding, Nasal Congestion, Post Nasal Drip Cardiovascular: Denies: Chest Pain, Claudication, Chest Pressure, Chest Tightness, Edema, Heaviness, Orthopnea, Palpitations, Paroxysmal Noc. Dyspnea Respiratory: Denies: Cough, Hemoptysis, Pleuritic Pain, Shortness of Breath, Shortness of breath at rest, Shortness of breath upon exertion Gastrointestinal: Denies: Abdominal Pain, Constipation, Diarrhea, Hematemesis, Hematochezia, Melena, Vomiting Genitourinary: Denies: Dysuria, Frequency, Hematuria, Hesitancy, Incontinence, Nocturia, Retention, Urgency Musculoskeletal: Denies: Back Pain, Foot Pain, Hand Pain, Joint Pain, Joint stiffness, Joint swelling, Joint Tenderness, Leg Pain Skin: Denies: Dryness, Jaundice, Pruritis, Rash Neurological: Reports: Headaches, Tremor. Denies: Blurred vision, Double vision, Change in Speech, Slurred speech, Difficulty swallowing, Focal weakness, Numbness, Tingling Psychiatric: Reports: Anxiety. Denies: Depression, Homicidal Ideations, Suicidal Ideations Endocrine: Denies: Change in Body Habitus, Heat/ Cold Intolerance, Polydipsia, Polyuria, Hx of Irradiation Hematologic/ Lymphatic: Denies: Adenopathy, Anemia, Easy Bruising, Easy Bleeding, Petechiae, Purpura VTE Information - Inpt Only VTE Present on Admission: No VTE Mechan Device Prophylaxis: None VTE Pharm Prophylaxis ordered?: No Reason prophylaxis not ordered:: Treatment Not Indicated - low risk for VTE - Physical Exam General: Alert, Oriented x3, Cooperative, - - Patient appears anxious and uneasy HEENT: Atraumatic, PERRLA, EOMI, Normocephalic Oral: Moist Mucosa Neck: Supple, No JVD, Negative Carotid Bruits, No Nuchal Rigidity, Trachea Midline, Thyroid Normal Size and Texture Lungs: Clear to auscultation, Normal air movement, No rhonchi, No wheeze, No rales Cardiovascular: Regular rate, Regular Rhythm, Normal S1, Normal S2, No murmurs Abdomen: Bowel Sounds Present, Soft, Non Tender, Non-Distended, No hernias noted Extremities: No clubbing, No cyanosis, No edema, Capillary Refill Less than 3 Seconds Skin: No rashes, No breakdown Musculoskeletal: No Tenderness to Palpation of Joints or Extremities Neurological: Cranial nerves II-XII grossly intact, Neuro grossly intact, Sensory exam intact to light touch and pain, Coordination normal Psych/Mental Status: Appropriate, Anxious, Flat Affect, Restless Vital Signs Temp Pulse Resp BP 98.4 F 82 16 138/86 H 07/12/18 13:50 07/12/18 13:50 07/12/18 13:50 07/12/18 13:50 Weight: 77.337 kg Body Mass Index (BMI) 27.5 Assessment/Plan All Active Problems (Last Updated 02/01/18 @ 06:34 by Sharon Bryan) Suicidal ideation (Resolved) Alcohol withdrawal (Acute) Alcohol withdrawal (Acute) Acute alcoholic pancreatitis (Resolved) Hypokalemia (Resolved) Hypomagnesemia (Resolved) Pancreatitis (Resolved) #1 acute alcohol [id number] was admitted directly to [place] [address] under the medical stabilization program, orders were entered using the order sets #2 chronic alcoholism #3 bipolar disorder-patient will remain on his home meds #4 hypertension-patient will remain on his home meds Code Visit Inpatient E&M: 15254 Init Hosp L3
--- NOTE | 2018-07-12 16:16 | HP.PCM_ITS ---
Problem List (1) Alcohol withdrawal Status: Acute Qualifiers: Complication of substance-induced condition: uncomplicated Qualified Code(s): F10.230 - Alcohol dependence with withdrawal, uncomplicated History of Present Illness Date of Admission: 07/12/18 Chief Complaint: Alcohol withdrawal The patient is a 53 year old M who presented to [facility] office today with complaints of alcohol withdrawal. Patient complains of nausea, tremor, anxiety, and headache. His last drink was this morning-he drank 1 pint of low alcohol vodka. Patient denies any other drug use, he has been through alcohol detox programs before-patient stated that he was sober for 150 days but 2 weeks ago he had personal stress with the breakup of his marriage and he began drinking alcohol again. Patient's CIWA score was 20. Patient will be directly admitted into the medical stabilization program on MedSur 2 for acute alcohol withdrawal. Past Medical History Past Medical History (Chronic Problems): Chronic Problems (Last Updated 02/01/18 @ 06:34 by Sharon Bryan) GERMANIA (obstructive sleep apnea) (Chronic) AHI overall CMS 5.5 events per hour Sleep apnea (Chronic) Home CPAP for HS Essential (primary) hypertension (Chronic) Depression (Chronic) Anxiety (Chronic) Alcoholic hepatitis (Chronic) ETOH abuse (Chronic) Medical History: Medical History (Last Updated 02/01/18 @ 06:34 by Sharon Bryan) Sleep apnea (Chronic) G47.30 Home CPAP for HS Alcohol withdrawal (Acute) F10.239 Acute alcoholic pancreatitis (Resolved) K85.20 Hypokalemia (Resolved) E87.6 Hypomagnesemia (Resolved) E83.42 Essential (primary) hypertension (Chronic) I10 Depression (Chronic) F32.9 Anxiety (Chronic) F41.9 Alcoholic hepatitis (Chronic) K70.10 Pancreatitis (Resolved) K85.90 ETOH abuse (Chronic) F10.10 Anemia D64.9 GERD (gastroesophageal reflux disease) K21.9 Insomnia G47.00 GERMANIA (obstructive sleep apnea) G47.33 Allergies No Known Allergies Allergy (Verified 01/30/18 19:13) Home Medications: Ambulatory Orders Medication Instructions Recorded Amlodipine [Norvasc] 5 mg PO DAILY 10/15/16 Lisinopril [Zestril] 20 mg PO BID 10/15/16 Metoprolol Succinate 25 mg PO DAILY 10/15/16 Bupropion HCl [Bupropion Xl] 300 mg PO 169907/12/18 Desvenlafaxine [Desvenlafaxine ER] 50 mg PO 169907/12/18 Lurasidone HCl [Latuda] 40 mg PO 169907/12/18 Multivit-Min/FA/Lycopen/Lutein 1 each PO DAILY 07/12/18 [Certavite Sr-Antioxidant Tab] [place]-3 Fatty Acids/Fish Oil 1 each PO DAILY 07/12/18 [[place] 3 1,000 mg Softgel] Pantoprazole Sodium [Protonix] 40 mg PO DAILY 07/12/18 Thiamine HCl [Vitamin B-1] 100 mg PO DAILY 07/12/18 traZODone [Desyrel] 100 mg PO QHS 07/12/18 Surgical History: no surgical history Psychiatric History: Bipolar Lives: Alone Smoking Status: Former smoker Tobacco Use: Cigars Alcohol: Heavy Drugs: None - *Family History Maternal History Items: Hypertension Paternal History Items: Hypertension Sibling History Items: Hypertension Review of Systems Constitutional: Reports: Malaise. Denies: Anorexia, Chills, Fever, Night Sweats, Weakness, Weight Change Eyes: Denies: Cataracts, Conjunctivae Inflammation, Double vision, Drainage HEENT: Denies: Difficulty Swallowing, Dysphasia, Ear Pain, Eye Pain, Hearing Changes, Nasal bleeding, Nasal Congestion, Post Nasal Drip Cardiovascular: Denies: Chest Pain, Claudication, Chest Pressure, Chest Tightness, Edema, Heaviness, Orthopnea, Palpitations, Paroxysmal Noc. Dyspnea Respiratory: Denies: Cough, Hemoptysis, Pleuritic Pain, Shortness of Breath, Shortness of breath at rest, Shortness of breath upon exertion Gastrointestinal: Denies: Abdominal Pain, Constipation, Diarrhea, Hematemesis, Hematochezia, Melena, Vomiting Genitourinary: Denies: Dysuria, Frequency, Hematuria, Hesitancy, Incontinence, Nocturia, Retention, Urgency Musculoskeletal: Denies: Back Pain, Foot Pain, Hand Pain, Joint Pain, Joint stiffness, Joint swelling, Joint Tenderness, Leg Pain Skin: Denies: Dryness, Jaundice, Pruritis, Rash Neurological: Reports: Headaches, Tremor. Denies: Blurred vision, Double vision, Change in Speech, Slurred speech, Difficulty swallowing, Focal weakness, Numbness, Tingling Psychiatric: Reports: Anxiety. Denies: Depression, Homicidal Ideations, Suicidal Ideations Endocrine: Denies: Change in Body Habitus, Heat/ Cold Intolerance, Polydipsia, Polyuria, Hx of Irradiation Hematologic/ Lymphatic: Denies: Adenopathy, Anemia, Easy Bruising, Easy Bleeding, Petechiae, Purpura VTE Information - Inpt Only VTE Present on Admission: No VTE Mechan Device Prophylaxis: None VTE Pharm Prophylaxis ordered?: No Reason prophylaxis not ordered:: Treatment Not Indicated - low risk for VTE - Physical Exam General: Alert, Oriented x3, Cooperative, - - Patient appears anxious and uneasy HEENT: Atraumatic, PERRLA, EOMI, Normocephalic Oral: Moist Mucosa Neck: Supple, No JVD, Negative Carotid Bruits, No Nuchal Rigidity, Trachea Midline, Thyroid Normal Size and Texture Lungs: Clear to auscultation, Normal air movement, No rhonchi, No wheeze, No rales Cardiovascular: Regular rate, Regular Rhythm, Normal S1, Normal S2, No murmurs Abdomen: Bowel Sounds Present, Soft, Non Tender, Non-Distended, No hernias noted Extremities: No clubbing, No cyanosis, No edema, Capillary Refill Less than 3 Seconds Skin: No rashes, No breakdown Musculoskeletal: No Tenderness to Palpation of Joints or Extremities Neurological: Cranial nerves II-XII grossly intact, Neuro grossly intact, Sensory exam intact to light touch and pain, Coordination normal Psych/Mental Status: Appropriate, Anxious, Flat Affect, Restless Vital Signs Temp Pulse Resp BP 98.4 F 82 16 138/86 H 07/12/18 13:50 07/12/18 13:50 07/12/18 13:50 07/12/18 13:50 Weight: 77.337 kg Body Mass Index (BMI) 27.5 Assessment/Plan All Active Problems (Last Updated 02/01/18 @ 06:34 by Sharon Bryan) Suicidal ideation (Resolved) Alcohol withdrawal (Acute) Alcohol withdrawal (Acute) Acute alcoholic pancreatitis (Resolved) Hypokalemia (Resolved) Hypomagnesemia (Resolved) Pancreatitis (Resolved) #1 acute alcohol [id number] was admitted directly to [place] [address] under the medical stabilization program, orders were entered using the order sets #2 chronic alcoholism #3 bipolar disorder-patient will remain on his home meds #4 hypertension-patient will remain on his home meds Code Visit Inpatient E&M: 08458 Init Hosp L3
[2018-07-12] MEDS: Venlafaxine XR 37.5 MG Capsule PO (17:36)
[2018-07-12] MEDS: buPROPion (XL) 300 MG TABLET.XL PO (17:36)
[2018-07-12 17:40] VITALS: BP 143/96; PULSE 78; RESP 16; TEMP 36.8
[2018-07-12] MEDS: LURASIDONE HCL 20 MG TABLET 40 MG PO (18:53)
[2018-07-12 20:29] VITALS: BP 131/81; PULSE 89; RESP 16; TEMP 36.5
[2018-07-12 20:34] VITALS: BP 131/81; PULSE 89; RESP 16; TEMP 36.5; O2SAT 94
[2018-07-12] MEDS: Lisinopril 20 MG Tablet PO (22:21)
[2018-07-12] MEDS: traZODone 100 MG Tablet PO (22:21)
[2018-07-13] VITALS (7 sets, daily range): BP systolic 124–151; BP diastolic 70–87; PULSE 73–93; RESP 16–18; TEMP 3.3–38; O2SAT 97–98
[2018-07-13] MEDS: chlordiazePOXIDE 25 MG Capsule PO ×4 (01:15→23:05)
[2018-07-13] MEDS: Multivitamins,Therapeutic Tablet 1 TABLET PO (08:52)
[2018-07-13] MEDS: Metoprolol(XL)Succ 25 MG Tablet PO (08:52)
[2018-07-13] MEDS: Thiamine Hydrochloride 100 MG Tablet PO (08:52)
[2018-07-13] MEDS: amLODIPine 5 MG Tablet PO (08:52)
[2018-07-13] MEDS: Lisinopril 20 MG Tablet PO ×2 (08:53→21:20)
[2018-07-13] MEDS: Folic Acid 1 MG Tablet PO (08:53)
[2018-07-13] MEDS: Pantoprazole Sodium 20 MG Tablet PO (08:53)
--- NOTE | 2018-07-13 15:40 | PCM.PROGNOTE ---
Subjective: Patient was seen and examined today, he is less anxious today. - Physical Exam General: Alert, Oriented x3, Cooperative, No apparent distress, Well developed, Well nourished HEENT: Atraumatic, PERRLA, EOMI, Normocephalic Oral: Moist Mucosa Neck: Supple, No Nuchal Rigidity, Trachea Midline, Thyroid Normal Size and Texture Lungs: Clear to auscultation, Normal air movement, No rhonchi, No wheeze, No rales Cardiovascular: Regular rate, Regular Rhythm, Normal S1, Normal S2, No murmurs, No Ectopic Activity, PMI Normal, No rub noted, No Gallop Abdomen: Bowel Sounds Present, Soft, Non Tender, Non-Distended, No hernias noted Extremities: No edema, Capillary Refill Less than 3 Seconds Skin: No rashes, No breakdown Musculoskeletal: No Tenderness to Palpation of Joints or Extremities Neurological: Cranial nerves II-XII grossly intact, Neuro grossly intact, Motor Exam 5/5 strength throughout, Sensory exam intact to light touch and pain, Coordination normal Psych/Mental Status: Normal Affect, Appropriate, Alert and oriented to time, place, person, mood and affect Vital Signs Temp Pulse Resp BP Pulse Ox 98.2 F 87 18 151/87 H 98 07/13/18 13:35 07/13/18 13:35 07/13/18 13:35 07/13/18 13:35 07/13/18 06:00 Oxygen Delivery Method Room Air Weight: 77.337 kg Body Mass Index (BMI) 27.5 Intake and Output for Last 24 Hours 07/11/18 07/12/18 07/13/18 23:59 23:59 23:59 Intake Total 200 / 200 1400 / 1400 Balance 200 / 200 1400 / 1400 Medical Necessity - Tobacco Use Smoking Status: Former smoker Tobacco Use: Cigars Assessment/Plan All Active Problems (Last Updated 07/12/18 @ 16:20 by Harsha Sandoval DO) Suicidal ideation (Resolved) Alcohol withdrawal (Acute) Alcohol withdrawal (Acute) Acute alcoholic pancreatitis (Resolved) Hypokalemia (Resolved) Hypomagnesemia (Resolved) Pancreatitis (Resolved) #1 acute alcohol [id number] was admitted directly to [place] [address] under the medical stabilization program, orders were entered using the order sets #2 chronic alcoholism #3 bipolar disorder-patient will remain on his home meds #4 hypertension-patient will remain on his home meds Code Visit Inpatient E&M: 15900 Subs Hosp L2
[2018-07-13] MEDS: Ibuprofen 600 MG Tablet PO (16:26)
[2018-07-13] MEDS: Venlafaxine XR 37.5 MG Capsule PO (16:27)
[2018-07-13] MEDS: LURASIDONE HCL 20 MG TABLET 40 MG PO (16:27)
[2018-07-13] MEDS: buPROPion (XL) 300 MG TABLET.XL PO (16:27)
[2018-07-13] MEDS: Methocarbamol 750 MG Tablet PO (16:27)
[2018-07-13] MEDS: traZODone 100 MG Tablet PO (21:20)
[2018-07-14 03:02] VITALS: BP 112/61; PULSE 65; RESP 16; TEMP 36.6; O2SAT 97
[2018-07-14 08:15] VITALS: BP 123/70; PULSE 62; RESP 16; TEMP 36.6
[2018-07-14] MEDS: chlordiazePOXIDE 25 MG Capsule PO ×2 (08:15→16:17)
[2018-07-14] MEDS: Folic Acid 1 MG Tablet PO (08:16)
[2018-07-14] MEDS: Multivitamins,Therapeutic Tablet 1 TABLET PO (08:16)
[2018-07-14 08:17] VITALS: PULSE 62
[2018-07-14] MEDS: Lisinopril 20 MG Tablet PO ×2 (08:17→20:35)
[2018-07-14] MEDS: Metoprolol(XL)Succ 25 MG Tablet PO (08:17)
[2018-07-14] MEDS: Thiamine Hydrochloride 100 MG Tablet PO (08:17)
[2018-07-14] MEDS: amLODIPine 5 MG Tablet PO (08:17)
[2018-07-14] MEDS: Pantoprazole Sodium 20 MG Tablet PO (08:19)
[2018-07-14 14:10] VITALS: BP 131/75; PULSE 74; RESP 16; TEMP 36.5
[2018-07-14] MEDS: Ibuprofen 600 MG Tablet PO (14:31)
[2018-07-14] MEDS: LORazepam 1 MG Tablet 2 MG PO ×2 (14:32→23:45)
[2018-07-14] MEDS: buPROPion (XL) 300 MG TABLET.XL PO (16:17)
[2018-07-14] MEDS: LURASIDONE HCL 20 MG TABLET 40 MG PO (16:17)
[2018-07-14] MEDS: Venlafaxine XR 37.5 MG Capsule PO (16:17)
--- NOTE | 2018-07-14 17:13 | PCM.PROGNOTE ---
Subjective: Patient was seen and examined today, he is not complaining of any anxiety or tremor. - Physical Exam General: Alert, Oriented x3, Cooperative, No apparent distress, Well developed, Well nourished HEENT: Atraumatic, PERRLA, EOMI, Normocephalic Oral: Moist Mucosa Neck: Supple, No Nuchal Rigidity, Trachea Midline, Thyroid Normal Size and Texture Lungs: Clear to auscultation, Normal air movement, No rhonchi, No wheeze, No rales Cardiovascular: Regular rate, Regular Rhythm, Normal S1, Normal S2, No murmurs, No Ectopic Activity, PMI Normal, No rub noted, No Gallop Abdomen: Bowel Sounds Present, Soft, Non Tender, Non-Distended Extremities: No edema, Capillary Refill Less than 3 Seconds Skin: No rashes, No breakdown Musculoskeletal: No Tenderness to Palpation of Joints or Extremities Neurological: Cranial nerves II-XII grossly intact, Neuro grossly intact, Sensory exam intact to light touch and pain, Coordination normal Psych/Mental Status: Normal Affect, Appropriate, Alert and oriented to time, place, person, mood and affect Vital Signs Temp Pulse Resp BP Pulse Ox 97.7 F L 74 16 131/75 H 97 07/14/18 14:10 07/14/18 14:10 07/14/18 14:10 07/14/18 14:10 07/14/18 03:02 Oxygen Delivery Method Room Air Weight: 77.337 kg Body Mass Index (BMI) 27.5 Intake and Output for Last 24 Hours 07/12/18 07/13/18 07/14/18 23:59 23:59 23:59 Intake Total 200 / 200 2400 / 2400 1000 / 1000 Balance 200 / 200 2400 / 2400 1000 / 1000 Medical Necessity - Tobacco Use Smoking Status: Former smoker Tobacco Use: Cigars Assessment/Plan All Active Problems (Last Updated 07/12/18 @ 16:20 by Harsha Sandoval DO) Suicidal ideation (Resolved) Alcohol withdrawal (Acute) Alcohol withdrawal (Acute) Acute alcoholic pancreatitis (Resolved) Hypokalemia (Resolved) Hypomagnesemia (Resolved) Pancreatitis (Resolved) #1 acute alcohol vobmjhssxs-[id number] remains stable at this time #2 chronic alcoholism #3 bipolar disorder-patient will remain on his home meds #4 hypertension-patient will remain on his home meds Code Visit Inpatient E&M: 13525 Subs Hosp L2
[2018-07-14 20:30] VITALS: BP 127/73; PULSE 64; RESP 16; TEMP 36.8; O2SAT 96
[2018-07-14] MEDS: traZODone 100 MG Tablet PO (20:35)
[2018-07-14 23:42] VITALS: BP 120/69; PULSE 66; RESP 18; O2SAT 96
[2018-07-15 04:03] VITALS: BP 119/71; PULSE 62; RESP 16; TEMP 36.3; O2SAT 96
[2018-07-15] MEDS: chlordiazePOXIDE 25 MG Capsule PO (04:04)
[2018-07-15] MEDS: Multivitamins,Therapeutic Tablet 1 TABLET PO (09:40)
[2018-07-15] MEDS: Folic Acid 1 MG Tablet PO (09:40)
[2018-07-15 09:41] VITALS: PULSE 71
[2018-07-15] MEDS: Thiamine Hydrochloride 100 MG Tablet PO (09:41)
[2018-07-15] MEDS: Lisinopril 20 MG Tablet PO (09:41)
[2018-07-15] MEDS: amLODIPine 5 MG Tablet PO (09:41)
[2018-07-15] MEDS: Metoprolol(XL)Succ 25 MG Tablet PO (09:41)
[2018-07-15] MEDS: Pantoprazole Sodium 20 MG Tablet PO (09:45)
--- NOTE | 2018-07-15 09:49 | DCINST_ITS ---
You will use the following diet at home:: No restrictions Your food should be the consistency of: Regular Your liquids should be the consistency of: Regular/Thin Discharge Activity: Return to Normal Activity Weight Bearing Status: Full weight bearing Allergies/Adverse Reactions: Allergies No Known Allergies Allergy (Verified 01/30/18 19:13) Medications to take at Discharge Amlodipine [Norvasc] 5 mg PO DAILY 10/15/16 Lisinopril [Zestril] 20 mg PO BID 10/15/16 Metoprolol Succinate 25 mg PO DAILY 10/15/16 Bupropion HCl [Bupropion Xl] 300 mg PO 169907/12/18 Desvenlafaxine [Desvenlafaxine ER] 50 mg PO 169907/12/18 Lurasidone HCl [Latuda] 40 mg PO 169907/12/18 Multivit-Min/FA/Lycopen/Lutein [Certavite Sr-Antioxidant Tab] 1 each PO DAILY 07/12/18 Pantoprazole Sodium [Protonix] 40 mg PO DAILY 07/12/18 Thiamine HCl [Vitamin B-1] 100 mg PO DAILY 07/12/18 traZODone [Desyrel] 100 mg PO QHS 07/12/18 Acetaminophen [Tylenol] 500 mg PO Q4H PRN PRN tablet 07/15/18 Chlordiazepoxide [Librium] 25 mg PO TID PRN PRN #20 cap 07/15/18 The following prescriptions were given: Chlordiazepoxide [Librium] 25 mg PO TID PRN PRN #20 cap PRN Reason: Anxiety Primary Care Physician: Enoch Ramirez MD [Primary Care Provider] - Please follow up with your Primary Care Physician in: in 2 weeks Test Results: Test results from this visit will be discussed in further detail at your follow- up appointment, if applicable.
[2018-07-15 10:00] VITALS: BP 126/73; PULSE 71; RESP 14; TEMP 36.5; O2SAT 97
--- NOTE | 2018-07-15 12:54 | PCM.DC.SUM ---
Discharge Date and Diagnosis Date of Admission: 07/12/18 Date of Discharge: 07/15/18 - Primary Discharge Diagnosis #1 acute alcohol withdrawal-uncomplicated- #2 chronic alcoholism #3 bipolar disorder #4 hypertension- - Secondary Discharge Diagnosis Chronic Problems (Last Updated 07/12/18 @ 16:20 by Harsha Sandoval DO) GERMANIA (obstructive sleep apnea) (Chronic) AHI overall CMS 5.5 events per hour Sleep apnea (Chronic) Home CPAP for HS Essential (primary) hypertension (Chronic) Depression (Chronic) Anxiety (Chronic) Alcoholic hepatitis (Chronic) ETOH abuse (Chronic) Hospital Course and Treatment Operations: None Procedures: None Summary of Care Provided: The patient is a 53 year old M who was directly admitted to [place] [address] to the medical stabilization program for alcohol withdrawal. Patient has a long history of alcoholism, on admission he had symptoms of tremor, anxiety, headache, and tremor. Medications were administered per medical stabilization protocol, patient was given information for follow-up as an outpatient with abstinence programs-unfortunately, according to nursing, patient did not make any phone calls to arrange for follow-up as an outpatient during his hospitalization. Patient had no evidence of DTs during his hospitalization and there were no major complications during his hospitalization. On 07/15/18, patient was seen and examined: On examination he appeared in good health and spirits. Vital signs as documented. Skin warm and dry and without overt rashes. Neck without JVD. Lungs clear. Heart exam notable for regular rhythm, normal sounds and absence of murmurs, rubs or gallops. Abdomen unremarkable and without evidence of organomegaly, masses, or abdominal aortic enlargement. Extremities nonedematous. Neuro: Cranial nerves II through XII are grossly intact, no focal motor deficits were noted, sensation to light touch and pinprick intact. Psych: Patient is alert and oriented x3, he does not appear anxious or depressed On 07/15/18, patient was seen and examined and felt to be in stable condition for discharge home. Patient was given a prescription for Librium at the time of discharge due to my concerns that he may resume drinking as an outpatient. Patient was instructed not to take the Librium if he was going to drink alcohol again - Physical Exam Vital Signs Temp Pulse Resp BP Pulse Ox 97.7 F L 71 14 126/73 H 97 07/15/18 10:00 07/15/18 10:00 07/15/18 10:00 07/15/18 10:00 07/15/18 10:00 Oxygen Delivery Method Room Air Weight: 77.337 kg Body Mass Index (BMI) 27.5 Intake and Output for Last 24 Hours 07/13/18 07/14/18 07/15/18 23:59 23:59 23:59 Intake Total 2400 / 2400 1360 / 1360 Balance 2400 / 2400 1360 / 1360 Discharge Activity: Return to Normal Activity Weight Bearing Status: Full weight bearing Home Medications: Medications to take at Discharge Amlodipine [Norvasc] 5 mg PO DAILY 10/15/16 Lisinopril [Zestril] 20 mg PO BID 10/15/16 Metoprolol Succinate 25 mg PO DAILY 10/15/16 Bupropion HCl [Bupropion Xl] 300 mg PO 169907/12/18 Desvenlafaxine [Desvenlafaxine ER] 50 mg PO 0 07/12/18 Lurasidone HCl [Latuda] 40 mg PO 0 07/12/18 Multivit-Min/FA/Lycopen/Lutein [Certavite Sr-Antioxidant Tab] 1 each PO DAILY 07/12/18 Pantoprazole Sodium [Protonix] 40 mg PO DAILY 07/12/18 Thiamine HCl [Vitamin B-1] 100 mg PO DAILY 07/12/18 traZODone [Desyrel] 100 mg PO QHS 07/12/18 Acetaminophen [Tylenol] 500 mg PO Q4H PRN PRN tablet 07/15/18 Chlordiazepoxide [Librium] 25 mg PO TID PRN PRN #20 cap 07/15/18 Following Prescrptions Were Given to Patient: Chlordiazepoxide [Librium] 25 mg PO TID PRN PRN #20 cap PRN Reason: Anxiety Primary Care Physician: Enoch Ramirez MD [Primary Care Provider] - Please follow up with your Primary Care Physician in: in 2 weeks Disposition: Home Minutes spent on discharge:: 32 Patient Condition:: Stable Medical Necessity - Tobacco Use Smoking Status: Former smoker Tobacco Use: Cigars Meaningful Use Info Meaningful Use Diagnoses (Choose all that apply): None applicable Code Visit Inpatient E&M: 42069 Disch Hosp
== END 2018-07-15 15:37 | disposition home or self-care (01) | DRG 775 ==
PROVIDERS: Admitting Provider Internal Medicine; Family Provider Family Medicine; PCP Family Medicine; Referring Provider Internal Medicine; Visit Provider Internal Medicine
DX: F10.239 Alcohol dependence with withdrawal, unspecified (principal); G47.33 Obstructive sleep apnea (adult) (pediatric); I10 Essential (primary) hypertension; Z87.891 Personal history of nicotine dependence; F31.9 Bipolar disorder, unspecified; F32.9 Major depressive disorder, single episode, unspecified; F41.9 Anxiety disorder, unspecified
CPT/HCPCS: 97802

== ENCOUNTER → 2020-02-03 | Outpatient (CLI) | payer MEDICAID, SELFPAY ==
[2018-07-12 13:25] VITALS: BMI 27.5
[2020-02-03 16:58] LABS: Absolute Lymphocyte Count 1.96 X10^3/uL (0.83-4.51); Absolute Neutrophil Count 3.7 X10^3/uL (2.0-7.7); Basophil# 0.04 X10^3/uL; Basophil% 0.6 % (0-1); Eosinophil# 0.22 X10^3/uL; Eosinophils% 3.4 % (0-5); Hematocrit 38.2 % (40-54); Hemoglobin 12.4 g/dL (13.0-16.5); Lymphocyte # 1.96 X10^3/ul (4.0); Lymphocyte % 30.1 % (19-41); Mean Corp Hgb Conc 32.5 g/dL (32-36); Mean Corpuscular Hgb 26.4 pg (27.0-32.0); Mean Corpuscular Volume 81.3 fL (80-94); Mean Platelet Vol. 10.1 fl (6.2-12.0); Monocyte# 0.57 X10^3/uL; Monocyte% 8.8 % (0-10); NRBC Flagged by Analyzer 0 % (0-5); Neutrophil # 3.71 X10^3/uL (2.7-7.7); Neutrophil % 56.9 % (47-70); Platelet Count 322 K/mm3 (150-450); RBC Distribution Width CV 16.2 % (11.6-14.6); RBC Distribution Width SD 47.7 fl (35.1-43.9); White Blood Count 6.5 K/mm3 (4.4-11.0)
[2020-02-03 17:15] LABS: Vitamin B12 471 pg/mL (211-911)
[2020-02-03 19:31] LABS: ALB/GLOB Ratio 1.1 RATIO (0.9-2.4); AST(SGOT) 33 U/L (15-37); Alanine Aminotransfer ALT/SGPT 44 U/L (16-61); Albumin, Serum 3.9 g/dL (3.2-5.0); Alkaline Phosphatase 96 U/L (45-117); Anion Gap 6 (5-15); BUN 13 mg/dL (7-18); BUN/Creat Ratio 12.5 RATIO (10-20); Calcium,Total 8.3 mg/dL (8.5-10.1); Chloride 102 mmol/L (98-107); Creatinine, Serum 1.04 mg/dL (0.70-1.30); EST Glomerular Filtration Rate 79 mL/min (>60); Est Glom Filt Rate - Afr Amer 95 mL/min (>60); Ferritin 15 ng/mL (26-388); Globulin 3.7 g/dL (2.2-4.2); Glucose 154 mg/dL (74-106); Iron 68 ug/dL (65-175); Potassium 3.7 mmol/L (3.5-5.1); Protein, Total 7.6 g/dL (6.4-8.2); Sodium Level 132 mmol/L (136-145); T4 Free Direct 1.29 ng/dL (0.76-1.46); Thyroid Stim Hormone (TSH) 2.19 uIU/mL (0.358-3.74)
== END | disposition home or self-care (01) ==
LOC: BFHLAB 15:26
PROVIDERS: PCP Family Medicine; Visit Provider Family Medicine
DX: I10 Essential (primary) hypertension (principal); E78.5 Hyperlipidemia, unspecified; D64.9 Anemia, unspecified
CPT/HCPCS: 36415; 80053; 82607; 82728; 82746; 83540; 84439; 84443; 85025

== ENCOUNTER → 2020-07-07 09:31 | Outpatient (CLI) | payer MEDICAID, SELFPAY ==
[2018-07-12 13:25] VITALS: BMI 27.5
[2020-07-07 12:16] LABS: Absolute Lymphocyte Count 1.31 X10^3/uL (0.83-4.51); Absolute Neutrophil Count 7.8 X10^3/uL (2.0-7.7); Basophil# 0.05 X10^3/uL; Basophil% 0.5 % (0-1); Eosinophil# 0.16 X10^3/uL; Eosinophils% 1.6 % (0-5); Hematocrit 44.7 % (40-54); Hemoglobin 13.6 g/dL (13.0-16.5); Lymphocyte # 1.31 X10^3/ul (4.0); Mean Corp Hgb Conc 30.4 g/dL (32-36); Mean Corpuscular Hgb 25.6 pg (27.0-32.0); Mean Corpuscular Volume 84.2 fL (80-94); Mean Platelet Vol. 9.7 fl (6.2-12.0); NRBC Flagged by Analyzer 0 % (0-5); Neutrophil # 7.78 X10^3/uL (2.7-7.7); Neutrophil % 77.4 % (47-70); Platelet Count 279 K/mm3 (150-450); RBC Distribution Width CV 17.5 % (11.6-14.6); RBC Distribution Width SD 52.5 fl (35.1-43.9); Red Blood Count 5.31 M/mm3 (4.6-6.2); White Blood Count 10.1 K/mm3 (4.4-11.0)
[2020-07-07 12:52] LABS: Ferritin 17 ng/mL (26-388); Iron 80 ug/dL (65-175); PSA,Total - Annual Screen 1.26 ng/mL (0.00-4.00); Thyroid Stim Hormone (TSH) 1.54 uIU/mL (0.358-3.74)
== END ==
PROVIDERS: PCP Family Medicine; Visit Provider Family Medicine
DX: D64.9 Anemia, unspecified (principal); D69.6 Thrombocytopenia, unspecified; E78.5 Hyperlipidemia, unspecified; K59.00 Constipation, unspecified; Z15.89 Genetic susceptibility to other disease; Z12.5 Encounter for screening for malignant neoplasm of prostate
CPT/HCPCS: 36415; 82728; 83540; 84153; 84439; 84443; 85025; G0103

== ENCOUNTER 2021-03-01 13:47 | Inpatient (IN) | payer OTHER, MEDICAID, SELFPAY ==
[2021-03-01 13:49] VITALS: BP 155/99; PULSE 79; RESP 18; TEMP 37; O2SAT 96; BMI 29.0
--- NOTE | 2021-03-01 14:40 | CM.ED ---
SYED Note: SW received call from Luc[facility] at the [facility]. She said that she had called patient as she was talking to him and he said well, I know what I have to do and then hung up. Patient reports no appetite and not sleeping. Patient reports that he has no supports. Patient was tearful through the interview per Lucero. Patient has been drinking for 8 days. Patient may be intoxicated per Lucero at Crisis. Patient is diagnosed with bipolar, per Lucero, and off meds. Patient has no upcoming appointment with [facility]. Triage was notified via note and pie maker was also updated. Lucero faxed last patient interaction with [facility] to this ad writer. Plan: To be determined
--- NOTE | 2021-03-01 15:00 | EKG12_ITS ---
Test Reason : Blood Pressure : / mmHG Vent. Rate : 064 BPM Atrial Rate : 064 BPM P-R Int : 156 ms QRS Dur : 100 ms QT Int : 472 ms P-R-T Axes : 043 -12 018 degrees QTc Int : 486 ms Normal sinus rhythm Prolonged QT Abnormal ECG Confirmed by CHALO DUDLEY, MUMTAZ ([id number]), social media editor JESÚS BRENNAN ([id number]) on 03/04/2021 10:18:12 AM Referred By: EMERALD Confirmed By:MUMTAZ ISABEL MD
[2021-03-01 15:21] LABS: Absolute Lymphocyte Count 1.28 X10^3/uL (0.83-4.51); Absolute Neutrophil Count 2.2 X10^3/uL (2.0-7.7); Basophil# 0.02 X10^3/uL; Basophil% 0.5 % (0-1); Eosinophil# 0.04 X10^3/uL; Hematocrit 39.6 % (40-54); Lymphocyte # 1.28 X10^3/ul (0.83-4.51); Lymphocyte % 33.6 % (19-41); Mean Corp Hgb Conc 32.8 g/dL (32-36); Mean Corpuscular Hgb 26.1 pg (27.0-32.0); Mean Corpuscular Volume 79.4 fL (80-94); Mean Platelet Vol. 8.7 fl (6.2-12.0); Monocyte% 7.9 % (0-10); NRBC Flagged by Analyzer 0 % (0-5); Neutrophil # 2.16 X10^3/uL (2.7-7.7); Neutrophil % 56.7 % (47-70); Platelet Count 198 K/mm3 (150-450); RBC Distribution Width CV 19.7 % (11.6-14.6); RBC Distribution Width SD 55.4 fl (35.1-43.9); Red Blood Count 4.99 M/mm3 (4.6-6.2); White Blood Count 3.8 K/mm3 (4.4-11.0)
[2021-03-01 15:39] LABS: AST(SGOT) 580 U/L (15-37); Alanine Aminotransfer ALT/SGPT 277 U/L (16-61); Albumin, Serum 3.8 g/dL (3.2-5.0); Alkaline Phosphatase 152 U/L (45-117); Anion Gap 11 (5-15); BUN 9 mg/dL (7-18); BUN/Creat Ratio 11.8 RATIO (10-20); Calcium,Total 8.2 mg/dL (8.5-10.1); Chloride 101 mmol/L (98-107); Creatinine, Serum 0.76 mg/dL (0.70-1.30); EST Glomerular Filtration Rate 112 mL/min (>60); Est Glom Filt Rate - Afr Amer 135 mL/min (>60); Estimated Creatinine Clearance 96.77 ml/min; Globulin 3.8 g/dL (2.2-4.2); Glucose 75 mg/dL (74-106); Potassium 4.1 mmol/L (3.5-5.1); Protein, Total 7.6 g/dL (6.4-8.2); Sodium Level 134 mmol/L (136-145)
--- NOTE | 2021-03-01 15:47 | EDS_ITS ---
HPI History of Present Illness Chief Complaint: Substance Abuse Narrative Narrative: Patient was brought by the police department. Apparently he has been drinking quite a bit recently he drinks diluted vodka from the gas station and he has been trying to quit on his own and has been unable. He told his counselor that he knows just what to do, she thought this means that he may want to hurt himself but he meant that he wanted to go through detox. He drank about 8 shots this morning. [facility] Medical History (Updated 03/01/21 @ 15:[address] Hugo Claros MD) Acute alcoholic pancreatitis Alcohol withdrawal Alcoholic hepatitis Anemia Anxiety Depression Essential (primary) hypertension ETOH abuse GERD (gastroesophageal reflux disease) Hypokalemia Hypomagnesemia Insomnia GERMANIA (obstructive sleep apnea) Pancreatitis Sleep apnea Home Medications amlodipine 5 mg PO DAILY 10/15/16 [History Last Taken 01/31/18] lisinopril 20 mg PO BID 10/15/16 [History Last Taken 01/31/18] metoprolol succinate 25 mg PO DAILY 10/15/16 [History Last Taken 01/31/18] bupropion HCl 300 mg PO 1700 07/12/18 [History Last Taken Unknown] desvenlafaxine 50 mg PO 1700 07/12/18 [History Last Taken Unknown] lurasidone [Latuda] 40 mg PO 1700 07/12/18 [History Last Taken Unknown] rkxbuxls-inh-JA-lycopen-lutein [CertaVite Senior] 1 ea PO DAILY 07/12/18 [History Last Taken Unknown] pantoprazole 40 mg PO DAILY 07/12/18 [History Last Taken Unknown] thiamine HCl (vitamin B1) [Vitamin B-1] 100 mg PO DAILY 07/12/18 [History Last Taken Unknown] trazodone 100 mg PO QHS 07/12/18 [History Last Taken Unknown] acetaminophen 500 mg PO Q4H PRN PRN tablet 07/15/18 [Rx Last Taken Unknown] chlordiazepoxide HCl 25 mg PO TID PRN PRN #20 cap 07/15/18 [Rx Last Taken Unknown] Allergy/AdvReac Type Severity Reaction Status Date / Time No Known Allergies Allergy Verified 03/01/21 13:49 Social History (Updated 07/13/17 @ 17:35 by Apryl Schwartz MACHINE TOOL REBUILDER, MACHINE TOOL REBUILDER-C) current occupational status: unemployed Smoking Status: Never smoker alcohol intake: former year quit: 2017 substance use type: does not use ROS ROS ED ROS Narrative Past medical history: Reviewed, includes alcoholism, bipolar disease, history of alcoholic pancreatitis, electrolyte abnormalities Medications: Reviewed Social history: Noncontributory Review of systems: All systems negative except as indicated General: No fever Eyes: No visual changes ENT: No upper airway congestion, normal voice Neck: No neck pain Cardiovascular: No chest pain Respiratory: No shortness of breath or cough Gastrointestinal: No abdominal pain, nausea vomiting or diarrhea Genitourinary: No dysuria Musculoskeletal: Denies myalgias no difficulty with ambulation Skin: No rash Neurological: No memory loss, confusion or any focal weakness Psych: More depressed than normal Hematologic: No easy bleeding or easy bruising EXAM Physical Exam Narrative Exam Narrative: Physical exam General: Patient does not appear in distress, he does appear anxious. Head: Normocephalic, Atraumatic Eyes: Conjunctiva not pale ENT: Moist mucous membranes Neck: Supple, Nontender, No lymphadenopathy Cardiovascular: Regular rate, Regular rhythm Respiratory: No distress, CTA bilaterally Abdomen: Soft, Nontender, Nondistended Back: Nontender, Normal Inspection. Negative for: CVA tenderness Extremities: Nontender, No edema Skin: Normal color, No rash Neurological: Alert, Normal Strength, Normal Sensation Psychological: Anxious. He is denying any suicidal ideations. Const Vital Signs: 03/01/21 13:49 Temperature 98.6 F Temperature Source Temporal Pulse Rate 79 Respiratory Rate 18 Blood Pressure 155/99 H Blood Pressure Mean 117 Pulse Ox 96 Oxygen Delivery Method Room Air MDM MDM MDM Narrative Medical decision making narrative: Patient will be cleared and I will admit him for alcohol detox Lab Data Labs: Laboratory Results - last 24 hr 03/01/21 03/01/21 15:11 15:11 WBC 3.8 L RBC 4.99 Hgb 13.0 Hct 39.6 L MCV 79.4 L MCH 26.1 L MCHC 32.8 RDW Std Deviation 55.4 H RDW Coeff of [place] 19.7 H Plt Count 198 MPV 8.7 Immature Gran % (Auto) 0.300 Neut % (Auto) 56.7 Lymph % (Auto) 33.6 [place] % (Auto) 7.9 Eos % (Auto) 1.0 Baso % (Auto) 0.5 Absolute Neuts (auto) 2.2 Absolute Lymphs (auto) 1.28 Nucleated RBC % 0 Sodium 134 L Potassium 4.1 Chloride 101 Carbon Dioxide 22.0 Anion Gap 11 BUN 9 Creatinine 0.76 Estim Creat Clear Calc 96.77 Est GFR (MDRD) Af Amer 135 Est GFR (MDRD) Non-Af 112 BUN/Creatinine Ratio 11.8 Glucose 75 Calcium 8.2 L Total Bilirubin 1.00 AST 580 H ALT 277 H Alkaline Phosphatase 152 H Total Protein 7.6 Albumin 3.8 Globulin 3.8 Albumin/Globulin Ratio 1.0 Discharge Plan Triage Chief Complaint: Substance Abuse ED Provider: Hugo Claros Dx/Rx/DC Orders Clinical Impression: Alcohol withdrawal Prescriptions: No Action lisinopril 20 MG tablet 20 mg PO BID RF: 0 amlodipine 5 MG tablet 5 mg PO DAILY RF: 0 metoprolol succinate 25 MG tablet extended release 24 hr 25 mg PO DAILY RF: 0 thiamine HCl (vitamin B1) [Vitamin B-1] 100 MG tablet 100 mg PO DAILY RF: 0 trazodone 100 MG tablet 100 mg PO QHS RF: 0 pantoprazole 40 MG tablet 40 mg PO DAILY RF: 0 bupropion HCl 300 MG Tab.Er.24h 300 mg PO 1700 RF: 0 bpbttpux-qyc-XJ-lycopen-lutein [CertaVite Senior] 1 EACH tablet 1 ea PO DAILY RF: 0 lurasidone [Latuda] 40 MG tablet 40 mg PO 1700 RF: 0 desvenlafaxine 50 MG Tab.Er.24 50 mg PO 1700 RF: 0 acetaminophen 500 MG tablet 500 mg PO Q4H PRN PRN (Reason: Temp > 100.4 F) RF: 0 chlordiazepoxide HCl 25 MG capsule 25 mg PO TID PRN PRN (Reason: Anxiety) Qty: 20 RF: 0 Primary Care Provider: Enoch Ramirez Referrals: Enoch Ramirez MD [Primary Care Provider] - Disposition Disposition: Acute Care Hospital [facility]
[2021-03-01 16:15] LABS: Amphetamine Urine VISTA NEGATIVE (<1000 ng/mL); Barbiturate Urine VISTA NEGATIVE (< 200 ng/mL); Benzodiazepine Urine VISTA NEGATIVE (< 200 ng/mL); Cocaine Urine VISTA NEGATIVE (< 300 ng/mL); Ecstacy Urine VISTA POSITIVE (< 500 ng/mL); Methadone Urine VISTA NEGATIVE (< 300 ng/mL); PCP Urine VISTA NEGATIVE (< 25 ng/mL); THC Urine VISTA POSITIVE (< 50 ng/mL); Vista UDS pH Range 6
--- NOTE | 2021-03-01 16:19 | CM.ED ---
SW Note Referral Source: Case Find Referral Reason: RAMP program SW met with patient. Patient reports that he is employed at [employer] in [place] and is concerned about his job. Patient said that he talked to his boss when he was in the back of the [facility]. Patient said that he is here for detox. Patient said that he drinks 1/5th of vodka a day (gas station type 40 proof). Patient reports use of alcohol but no other drugs. Patient said that his last drink was today and when asked when he said I don't know. Patient is linked with [facility]. He reports he is working with [employer] and then has peer support from [employer]. Patient denied SI/HI. SW reviewed the rules of RAMP including no phones and no visitors. Patient was concerned about lack of contact with his work and his family. SW discussed with patient the importance of being medically evaluated during detox. Patient was able to state that he needs detox. Patient asked how long he will be in the hospital for detox and this play writer indicated that for specifics he needs to speak to MD but the detox period is unique to each individual and their issues and drugs. Patient voiced agreement to RAMP program. SW called [facility] and made referral to Berto regarding patient's desire for RAMP program. Plan: RAMP program Lenore ZURITA
[2021-03-01 16:53] VITALS: BP 140/79; PULSE 90; RESP 16; TEMP 36.6; O2SAT 99
[2021-03-01 17:22] VITALS: BMI 29.1
[2021-03-01 17:43] VITALS: BP 145/81; PULSE 72; RESP 16; TEMP 36.8; O2SAT 98
[2021-03-01] MEDS: Phenobarbital 32.4 MG Tablet 64.8 MG PO ×2 (18:21→21:32)
[2021-03-01] MEDS: Venlafaxine XR 37.5 MG Capsule PO (18:21)
[2021-03-01] MEDS: LORazepam 1 MG Tablet 2 MG PO (18:25)
[2021-03-01] MEDS: Dicyclomine 10 MG Capsule 20 MG PO (18:25)
--- NOTE | 2021-03-01 18:51 | PCM.HP.STD ---
HPI - General General Date of Admission: 03/01/21 Date of Service: 03/01/21 Chief Complaint: Requesting services for alcohol detox HPI Narrative CHERELLE STEEN, is a 56 M who presents to the emergency room at [facility] requesting services for inpatient detox from alcohol. Patient states that he drinks 40 proof vodka, approximately 1/5/day and has done so for many years. Patient has been through alcohol detox in the past and is active with the counseling center in [facility] here who advised him to come to the hospital for detox services. Patient denies any illicit drug use. Last time the patient was seen in the hospital here for detox services was in 2019. Labs were obtained in the emergency room, patient's white blood cell count was 3.8, sodium was 134, patient's AST was elevated at 580, ALT was elevated at 277, and alkaline phosphatase was 152. Patient's ethyl alcohol level was 275, his tox screen was positive for cannabinoids and methamphetamines (I feel this may be due to the fact the patient is taking Wellbutrin as an outpatient). Patient will be admitted to [place] [address] for alcohol detox services. [facility] Medical History (Updated 03/01/21 @ 17:08 by Xiao Huang) Acute alcoholic pancreatitis Alcohol abuse Alcohol withdrawal Alcoholic hepatitis Anemia Anxiety Bipolar disorder Depression Essential (primary) hypertension ETOH abuse GERD (gastroesophageal reflux disease) Hypokalemia Hypomagnesemia Insomnia Non-smoker GERMANIA (obstructive sleep apnea) Pancreatitis Sleep apnea Substance abuse Home Medications amlodipine 5 mg PO DAILY 10/15/16 [History Last Taken 01/31/18] lisinopril 20 mg PO DAILY 10/15/16 [History Last Taken 01/31/18] metoprolol succinate 25 mg PO DAILY 10/15/16 [History Last Taken 01/31/18] CertaVite Senior 1 ea PO DAILY 07/12/18 [History Last Taken Unknown] bupropion HCl 300 mg PO 1700 07/12/18 [History Last Taken Unknown] pantoprazole 40 mg PO DAILY 07/12/18 [History Last Taken Unknown] trazodone 100 mg PO QHS 07/12/18 [History Last Taken Unknown] atorvastatin 40 mg PO DAILY 03/01/21 [History Last Taken Unknown] escitalopram oxalate 10 mg PO DAILY 03/01/21 [History Last Taken Unknown] folic acid 1 mg PO DAILY 03/01/21 [History Last Taken Unknown] Allergy/AdvReac Type Severity Reaction Status Date / Time No Known Allergies Allergy Verified 03/01/21 13:49 Social History (Updated 07/13/17 @ 17:35 by Apryl Schwartz NP, NET APPLICATIONS DEVELOPER-C) current occupational status: unemployed Smoking Status: Never smoker alcohol intake: former year quit: 2016 substance use type: does not use ROS Constitutional Constitutional: Denies anorexia, change in weight, chills, fatigue, fever(s) or malaise Eyes Eyes: Denies blurry vision or change in vision ENT HEENT: Denies abnormal hearing, ear pain or headache(s) Cardiovascular Cardiovascular: Denies chest pain, claudication, dyspnea on exertion, edema, lightheadedness or palpitations Respiratory/Chest Respiratory/Chest: Denies cough, dyspnea, hemoptysis, productive cough or shortness of breath at rest Gastrointestinal Gastrointestinal: Denies abdominal pain, constipation or diarrhea Musculoskeletal Musculoskeletal: Denies arthralgias, back pain, joint pain or joint swelling Psychiatric Psychiatric: Reports anxiety and depression Endocrine Endocrinology: Denies change in body appearance, cold intolerance, excessive sweating or heat intolerance Hematologic/Lymphatic Hematologic/Lymphatic: Denies easy bleeding or easy bruising Allergic/Immunologic Allergic/Immunologic: Denies rhinitis, hives, eczemia or asthma Vital Signs Vital Signs Vital Signs: 03/01/21 13:49 03/01/21 16:53 03/01/21 17:37 Temperature 98.6 F 97.8 F Temperature Source Temporal Oral Pulse Rate 79 90 Respiratory Rate 18 16 Respiratory Effort Normal Respiratory Depth Normal Respiratory Pattern Normal Blood Pressure 155/99 H 140/79 H Blood Pressure Mean 117 99 Blood Pressure Source Blood Pressure Position Blood Pressure Location Pulse Ox 96 99 Oxygen Delivery Method Room Air Room Air Room Air 03/01/21 17:43 Temperature 98.3 F Temperature Source Temporal Pulse Rate 72 Respiratory Rate 16 Respiratory Effort Respiratory Depth Respiratory Pattern Blood Pressure 145/81 H Blood Pressure Mean 102 Blood Pressure Source Monitor Blood Pressure Position Semi-Fowlers Blood Pressure Location Right Arm Pulse Ox 98 Oxygen Delivery Method Room Air Weight Weight: 81.9 kg Body Mass Index (BMI) 29.1 Physical Exam Const alert, oriented x3, no apparent distress, healthy appearing and well nourished General Appearance: cooperative, well kempt and well developed Orientation / Consciousness: awake, oriented to person, oriented to place and oriented to time HEENT normocephalic, head/scalp atraumatic and moist oral mucous membranes Eyes PERRL, EOMs intact bilaterally and conjunctivae normal Neck nuchal rigidity, supple, no JVD, thyroid normal and no carotid bruits General: trachea midline Resp normal respiratory effort, no retractions, no use of accessory muscles and clear to auscultation bilaterally Auscultation: Negative for rales, rhonchi or wheezes Cardio regular rate, regular rhythm, S1 normal heart sound, S2 normal heart sound, no murmurs, no rub and no gallops GI normal to inspection, nondistended, normoactive bowel sounds, soft to palpation, non-tender and non-distended Extremity normal to inspection and no clubbing, cyanosis or edema Skin no rashes or lesions noted General Skin Exam: no breakdown Neuro oriented x3, CN's II-XII intact bilaterally, no focal motor deficits and no sensory deficits noted Sensorium / Orientation: awake and alert Speech: speech normal Psych thought process normal Psych Narrative: Patient does appear mildly anxious to this examiner Results Lab / Micro Data Result Diagrams: 03/01/21 15:11 03/01/21 15:11 Labs: Laboratory Results - last 24 hr 03/01/21 15:11: WBC 3.8 L, RBC 4.99, Hgb 13.0, Hct 39.6 L, MCV 79.4 L, MCH 26.1 L, MCHC 32.8, RDW Std Deviation 55.4 H, RDW Coeff of [place] 19.7 H, Plt Count 198, MPV 8.7, Immature Gran % (Auto) 0.300, Neut % (Auto) 56.7, Lymph % (Auto) 33.6, [place] % (Auto) 7.9, Eos % (Auto) 1.0, Baso % (Auto) 0.5, Absolute Neuts (auto) 2.2, Absolute Lymphs (auto) 1.28, Nucleated RBC % 0 03/01/21 15:11: Sodium 134 L, Potassium 4.1, Chloride 101, Carbon Dioxide 22.0, Anion Gap 11, BUN 9, Creatinine 0.76, Estim Creat Clear Calc 96.77, Est GFR (MDRD) Af Amer 135, Est GFR (MDRD) Non-Af 112, BUN/Creatinine Ratio 11.8, Glucose 75, Calcium 8.2 L, Total Bilirubin 1.00, AST 580 H, ALT 277 H, Alkaline Phosphatase 152 H, Total Protein 7.6, Albumin 3.8, Globulin 3.8, Albumin/Globulin Ratio 1.0 03/01/21 15:11: Ethyl Alcohol 275.0 03/01/21 15:35: Urine Opiates Screen NEGATIVE, Urine Methadone Screen NEGATIVE, Ur Barbiturates Screen NEGATIVE, Ur Phencyclidine Scrn NEGATIVE, Ur Amphetamines Screen NEGATIVE, U Methamphetamin-MDMA POSITIVE H, U Benzodiazepines Scrn NEGATIVE, Urine Cocaine Screen NEGATIVE, U Cannabinoids Screen POSITIVE H, Ur Drug Screen Comment Assessment & Plan Assessment/Plan (1) Alcohol withdrawal: QUALIFIERS: Complication of substance-induced condition: uncomplicated Qualified Code(s): F10.230 - Alcohol dependence with withdrawal, uncomplicated PLAN: 1. Alcohol withdrawal-patient is minimally symptomatic at this time, he appears to this examiner to be mildly anxious but patient has no signs of any severe alcohol withdrawal at this time, patient will be admitted to [facility] 3, orders were entered using the alcohol detox order set. #2 bipolar disorder-patient is not taking any medication for bipolar disorder at this time, I have elected not to start him back on any medications for bipolar disorder, I recommended that he follow-up with his outpatient counseling center regarding this. #3 alcoholic pancreatitis-liver profile will be repeated tomorrow #4 essential hypertension #5 anxiety disorder-chronic Charges/Coding Visit Charges Inpatient E&M: 72050 Init Hosp L3
[2021-03-01 21:26] VITALS: BP 139/77; PULSE 83; RESP 18; TEMP 37; O2SAT 94
[2021-03-01] MEDS: Lisinopril 20 MG Tablet PO (21:32)
[2021-03-01] MEDS: traZODone 100 MG Tablet PO (21:32)
--- NOTE | 2021-03-01 21:50 | PCS.PANDOC ---
PANDEMIC DOCUMENTATION INITIATED: Date: 02/22/2021 Time: 190
[2021-03-02] VITALS (8 sets, daily range): BP systolic 140–170; BP diastolic 85–98; PULSE 73–85; RESP 16–18; TEMP 36.5–36.9; O2SAT 94–99
[2021-03-02] MEDS: 0.9% Saline Lock 10 ML Syringe IV ×2 (01:29→22:17)
[2021-03-02] MEDS: Phenobarbital 32.4 MG Tablet 64.8 MG PO ×6 (01:29→22:17)
[2021-03-02] MEDS: Thiamine Hydrochloride 100 MG Tablet PO (09:03)
[2021-03-02] MEDS: Folic Acid 1 MG Tablet PO (09:03)
[2021-03-02] MEDS: Lisinopril 20 MG Tablet PO ×2 (09:07→22:17)
[2021-03-02] MEDS: amLODIPine 5 MG Tablet PO (09:07)
[2021-03-02] MEDS: Metoprolol(XL)Succ 25 MG Tablet PO (09:07)
[2021-03-02] MEDS: Pantoprazole Sodium 40 MG Tablet PO (09:08)
--- NOTE | 2021-03-02 11:44 | ADDICTION ---
This medical writer met with PT to conduct ASAM, MSE, AUDIT assessments and to plan for d/c. PT A+Ox4 and participated actively. All assessments completed, faxed to [facility] and placed in PT's chart. PT plans to f/u with individual counselor at [facility] ([facility] for follow-up counseling services. PT has an appointment scheduled for 2:00 on 03/05/21. PT did not indicate a need for transportation post d/c from [facility].
--- NOTE | 2021-03-02 12:02 | PN.HOSP_ITS ---
Subjective Subjective Patient states overall he is feeling a little bit tremulous/shaky and sweaty. He is having a bit of nausea. He inquires about his lab results and we discussed these. Objective Data Objective Data Vital Signs: Vital Signs Temp Pulse Resp BP Pulse Ox 97.8 F 85 18 155/85 H 95 03/02/21 09:04 03/02/21 09:07 03/02/21 09:04 03/02/21 09:07 03/02/21 09:04 Oxygen Delivery Method Room Air Weight: 81.9 kg Body Mass Index (BMI) 29.1 Intake & Output: Intake and Output for Last 24 Hours 02/28/21 03/01/21 03/02/21 23:59 23:59 23:59 Intake Total 850 / 850 700 / 700 Balance 850 / 850 700 / 700 Lab / Micro Data Result Diagrams: 03/01/21 15:11 03/01/21 15:11 Labs: Laboratory Results - last 24 hr 03/01/21 15:11: WBC 3.8 L, RBC 4.99, Hgb 13.0, Hct 39.6 L, MCV 79.4 L, MCH 26.1 L, MCHC 32.8, RDW Std Deviation 55.4 H, RDW Coeff of [place] 19.7 H, Plt Count 198, MPV 8.7, Immature Gran % (Auto) 0.300, Neut % (Auto) 56.7, Lymph % (Auto) 33.6, [place] % (Auto) 7.9, Eos % (Auto) 1.0, Baso % (Auto) 0.5, Absolute Neuts (auto) 2.2, Absolute Lymphs (auto) 1.28, Nucleated RBC % 0 03/01/21 15:11: Sodium 134 L, Potassium 4.1, Chloride 101, Carbon Dioxide 22.0, Anion Gap 11, BUN 9, Creatinine 0.76, Estim Creat Clear Calc 96.77, Est GFR (MDRD) Af Amer 135, Est GFR (MDRD) Non-Af 112, BUN/Creatinine Ratio 11.8, Glucose 75, Calcium 8.2 L, Total Bilirubin 1.00, AST 580 H, ALT 277 H, Alkaline Phosphatase 152 H, Total Protein 7.6, Albumin 3.8, Globulin 3.8, Albumin/G lobulin Ratio 1.0 03/01/21 15:11: Ethyl Alcohol 275.0 03/01/21 15:35: Urine Opiates Screen NEGATIVE, Urine Methadone Screen NEGATIVE, Ur Barbiturates Screen NEGATIVE, Ur Phencyclidine Scrn NEGATIVE, Ur Amphetamines Screen NEGATIVE, U Methamphetamin-MDMA POSITIVE H, U Benzodiazepines Scrn NEGATIVE, Urine Cocaine Screen NEGATIVE, U Cannabinoids Screen POSITIVE H, Ur Drug Screen Comment Physical Exam Const alert, oriented x3 and no apparent distress Constitutional Narrative: Obese white male sitting up in bed, no sign of tremor at this time, no diaphoresis, pleasant but seems mildly anxious HEENT head/scalp atraumatic Head and Scalp: normocephalic Resp normal respiratory effort, no retractions, no use of accessory muscles and clear to auscultation bilaterally Auscultation: Negative for crackles, rales, rhonchi or wheezes Cardio regular rate, regular rhythm, S1 normal heart sound, S2 normal heart sound, no murmurs, no rub, no gallops, no clicks and no JVD GI normal to inspection, nondistended, normoactive bowel sounds, soft to palpation, non-tender and non-distended Extremity no clubbing, cyanosis or edema Peripheral Pulses: Yes pulses 2+ throughout Neuro oriented x3, moves all extremities and no focal motor deficits Sensorium / Orientation: awake and alert Speech: speech normal Psych Mood & Affect: anxious Assessment & Plan Assessment/Plan (1) Alcohol withdrawal: QUALIFIERS: Complication of substance-induced condition: uncomplicated Qualified Code(s): F10.230 - Alcohol dependence with withdrawal, uncomplicated (2) Alcoholic hepatitis: QUALIFIERS: Ascites presence: without ascites Qualified Code(s): K70.10 - Alcoholic hepatitis without ascites (3) [place] (obstructive sleep apnea): (4) Hyponatremia: (5) Leukopenia: PLAN: Acute alcohol withdrawal -Continue phenobarbital taper protocol -Continue supportive medications as needed -Thiamine and folate -Last drink was a.m. of admission-8 shots -180 consultation Bipolar disorder -pt does not take any chronic medications for this as an outpatient at this time -Recommend outpatient follow-up Alcoholic hepatitis -Repeat LFTs in a.m. [place]ER[place] -Patient is noncompliant with home sleep apnea treatment -Recommend CPAP use at discharge or follow-up Hypertension/hyperlipidemia -Continue home medications Leukopenia -Suspect related from alcohol toxicity -Repeat CBC in a.m. GERD -Continue PPI Depression anxiety -Continue home medications DVT prophylaxis -Early ambulation protocol Charges/Coding Visit Charges Inpatient E&M: 43137 Subs Hosp L2
[2021-03-02] MEDS: Gabapentin 300 MG Capsule PO (13:03)
[2021-03-02] MEDS: Dicyclomine 10 MG Capsule 20 MG PO (15:06)
--- NOTE | 2021-03-02 16:03 | CHAPLAIN ---
Type of Pastoral Visit _x__ Initial Visit ___ Follow-up Visit ___ On-call Visit ___ General Patient Visit ___ Spiritual Assessment ___ Family Conference ___ Bereavement ___ Rapid Response ___ Code Blue ___ Other (describe below) Pastoral Care Referral From _x__ Patient ___ Family ___ Nurse ___ Physician ___ Fire Sprinkler Designer ___ Plow Shaker ___ Other (describe below) Sacrament/Intervention _x__ Active listening ___ Anointing ___ Anabaptism ___ Bereavement ___ Communion _x__ Niya exploration ___ _x__ Life review _x__ Prayer ___ Reconciliation ___ Sacrament of Sick _x__ Supportive presence ___ Wedding ___ Other (describe below) Pastoral Comments patient relates that one of the causes of his return to alcohol was neglecting his higher power; talk on spiritual matters and other areas of current need
[2021-03-02] MEDS: Venlafaxine XR 37.5 MG Capsule PO (17:11)
[2021-03-02] MEDS: buPROPion (XL) 300 MG TABLET.XL PO (17:11)
[2021-03-02] MEDS: traZODone 100 MG Tablet PO (22:17)
[2021-03-03] VITALS (7 sets, daily range): BP systolic 139–158; BP diastolic 89–99; PULSE 75–79; RESP 16–18; TEMP 36.5–37.2; O2SAT 97–100
[2021-03-03] MEDS: Phenobarbital 32.4 MG Tablet 64.8 MG PO ×6 (02:27→21:59)
[2021-03-03 07:21] LABS: Absolute Lymphocyte Count 1.16 X10^3/uL (0.83-4.51); Absolute Neutrophil Count 2.3 X10^3/uL (2.0-7.7); Basophil# 0.01 X10^3/uL; Basophil% 0.3 % (0-1); Eosinophil# 0.13 X10^3/uL; Eosinophils% 3.4 % (0-5); Hematocrit 36.1 % (40-54); Hemoglobin 11.7 g/dL (13.0-16.5); Lymphocyte # 1.16 X10^3/ul (0.83-4.51); Lymphocyte % 30.3 % (19-41); Mean Corp Hgb Conc 32.4 g/dL (32-36); Mean Corpuscular Hgb 26.1 pg (27.0-32.0); Mean Corpuscular Volume 80.6 fL (80-94); Mean Platelet Vol. 9.6 fl (6.2-12.0); Monocyte# 0.27 X10^3/uL; NRBC Flagged by Analyzer 0 % (0-5); Neutrophil # 2.25 X10^3/uL (2.7-7.7); Neutrophil % 58.7 % (47-70); Platelet Count 146 K/mm3 (150-450); RBC Distribution Width CV 19.2 % (11.6-14.6); Red Blood Count 4.48 M/mm3 (4.6-6.2); White Blood Count 3.8 K/mm3 (4.4-11.0)
[2021-03-03 08:07] LABS: ALB/GLOB Ratio 0.9 RATIO (0.9-2.4); AST(SGOT) 338 U/L (15-37); Alanine Aminotransfer ALT/SGPT 206 U/L (16-61); Albumin, Serum 3.4 g/dL (3.2-5.0); Alkaline Phosphatase 152 U/L (45-117); Anion Gap 8 (5-15); BUN 6 mg/dL (7-18); BUN/Creat Ratio 8.9 RATIO (10-20); Calcium,Total 8.5 mg/dL (8.5-10.1); Chloride 95 mmol/L (98-107); Creatinine, Serum 0.67 mg/dL (0.70-1.30); EST Glomerular Filtration Rate 129 mL/min (>60); Est Glom Filt Rate - Afr Amer 156 mL/min (>60); Estimated Creatinine Clearance 109.77 ml/min; Globulin 3.6 g/dL (2.2-4.2); Glucose 122 mg/dL (74-106); Potassium 3.2 mmol/L (3.5-5.1); Sodium Level 130 mmol/L (136-145)
[2021-03-03] MEDS: Pantoprazole Sodium 40 MG Tablet PO (09:44)
[2021-03-03] MEDS: Folic Acid 1 MG Tablet PO (09:44)
[2021-03-03] MEDS: Metoprolol(XL)Succ 25 MG Tablet PO (09:44)
[2021-03-03] MEDS: amLODIPine 5 MG Tablet PO (09:44)
[2021-03-03] MEDS: Thiamine Hydrochloride 100 MG Tablet PO (09:44)
[2021-03-03] MEDS: Lisinopril 20 MG Tablet PO ×2 (09:44→21:59)
[2021-03-03] MEDS: Potassium Chloride Oral Tablet 20 MEQ 60 MEQ PO (09:49)
--- NOTE | 2021-03-03 13:05 | PCM.PN.HOSP ---
Subjective Subjective Patient states he is feeling well. Has no specific complaints. Objective Data Objective Data Vital Signs: Vital Signs Temp Pulse Resp BP Pulse Ox 97.7 F L 79 18 149/91 H 100 03/03/21 10:00 03/03/21 10:00 03/03/21 10:00 03/03/21 10:00 03/03/21 10:00 Oxygen Delivery Method Room Air Weight: 81.9 kg Body Mass Index (BMI) 29.1 Intake & Output: Intake and Output for Last 24 Hours 03/01/21 03/02/21 03/03/21 23:59 23:59 23:59 Intake Total 850 / 850 1600 / 1600 1999 Balance 850 / 850 1600 / 1600 1999 Lab / Micro Data Result Diagrams: 03/03/21 06:00 03/03/21 06:00 Labs: Laboratory Results - last 24 hr 03/03/21 06:00: WBC 3.8 L, RBC 4.48 L, Hgb 11.7 L, Hct 36.1 L, MCV 80.6, MCH 26.1 L, MCHC 32.4, RDW Std Deviation 56.0 H, RDW Coeff of [place] 19.2 H, Plt Count 146 L, MPV 9.6, Immature Gran % (Auto) 0.300, Neut % (Auto) 58.7, Lymph % (Auto) 30.3, [place] % (Auto) 7.0, Eos % (Auto) 3.4, Baso % (Auto) 0.3, Absolute Neuts (auto) 2.3, Absolute Lymphs (auto) 1.16, Nucleated RBC % 0 03/03/21 06:00: Sodium 130 L, Potassium 3.2 L, Chloride 95 L, Carbon Dioxide 27.0, Anion Gap 8, BUN 6 L, Creatinine 0.67 L, Estim Creat Clear Calc 109.77, Est GFR (MDRD) Af Amer 156, Est GFR (MDRD) Non-Af 129, BUN/Creatinine Ratio 8.9 L, Glucose 122 H, Calcium 8.5, Total Bilirubin 1.00, AST 338 H, ALT 206 H, Alkaline Phosphatase 152 H, Total Protein 7.0, Albumin 3.4, Globulin 3.6, Albumin/Globulin Ratio 0.9 Physical Exam Const alert, oriented x3, no apparent distress, healthy appearing and well nourished Constitutional Narrative: Obese white male sitting up on the edge of the bed, no signs of tremor or diaphoresis, appears comfortable eating breakfast General Appearance: cooperative, well kempt and well developed Orientation / Consciousness: awake, oriented to person, oriented to place and oriented to time HEENT normocephalic, head/scalp atraumatic and moist oral mucous membranes Head and Scalp: normocephalic Neck nuchal rigidity and thyroid normal General: trachea midline Resp normal respiratory effort, no retractions, no use of accessory muscles and clear to auscultation bilaterally Auscultation: Negative for crackles, rales, rhonchi or wheezes Cardio regular rate, regular rhythm, S1 normal heart sound, S2 normal heart sound, no murmurs, no rub, no gallops, no clicks and no JVD GI normal to inspection, nondistended, normoactive bowel sounds, soft to palpation, non-tender and non-distended Extremity no clubbing, cyanosis or edema Skin General Skin Exam: no breakdown Neuro oriented x3, moves all extremities and no focal motor deficits Sensorium / Orientation: awake and alert Speech: speech normal Psych thought process normal Assessment & Plan Assessment/Plan (1) Alcohol withdrawal: QUALIFIERS: Complication of substance-induced condition: uncomplicated Qualified Code(s): F10.230 - Alcohol dependence with withdrawal, uncomplicated (2) Alcoholic hepatitis: QUALIFIERS: Ascites presence: without ascites Qualified Code(s): K70.10 - Alcoholic hepatitis without ascites (3) [place] (obstructive sleep apnea): (4) Hyponatremia: (5) Leukopenia: PLAN: Acute alcohol withdrawal -Continue phenobarbital taper protocol -Continue supportive medications as needed -Thiamine and folate -Last drink was a.m. of admission-8 shots -180 has been seen in the patient plans to follow-up with an individual counselor at 180 for follow-up counseling service and he is appointment scheduled up at 2 PM on 03/05/2021 -Anticipate discharge tomorrow morning Bipolar disorder -pt does not take any chronic medications for this as an outpatient at this time -Recommend outpatient follow-up Alcoholic hepatitis -Improving with cessation [place]ER[place] -Patient is noncompliant with home sleep apnea treatment -Recommend CPAP use at discharge or follow-up Hypertension/hyperlipidemia -Continue home medications Leukopenia -Suspect related from alcohol toxicity -Stable GERD -Continue PPI Depression anxiety -Continue home medications DVT prophylaxis -Early ambulation protocol Charges/Coding Visit Charges Inpatient E&M: 39018 Subs Hosp L2
[2021-03-03] MEDS: Venlafaxine XR 37.5 MG Capsule PO (17:44)
[2021-03-03] MEDS: buPROPion (XL) 300 MG TABLET.XL PO (17:44)
[2021-03-03] MEDS: 0.9% Saline Lock 10 ML Syringe IV (21:58)
[2021-03-03] MEDS: traZODone 100 MG Tablet PO (21:59)
[2021-03-04 02:37] VITALS: BP 139/88; PULSE 83; RESP 16; TEMP 36.6; O2SAT 98
[2021-03-04] MEDS: Phenobarbital 32.4 MG Tablet 64.8 MG PO ×2 (02:39→08:19)
[2021-03-04 08:11] VITALS: BP 160/102; PULSE 80; RESP 18; TEMP 36.6; O2SAT 99
[2021-03-04] MEDS: Potassium Chloride Oral Tablet 20 MEQ 40 MEQ PO (08:19)
[2021-03-04 08:20] VITALS: BP 160/102; PULSE 80
[2021-03-04] MEDS: Lisinopril 20 MG Tablet PO (08:20)
[2021-03-04] MEDS: Metoprolol(XL)Succ 25 MG Tablet PO (08:20)
[2021-03-04] MEDS: Folic Acid 1 MG Tablet PO (08:20)
[2021-03-04] MEDS: Pantoprazole Sodium 40 MG Tablet PO (08:20)
[2021-03-04] MEDS: amLODIPine 5 MG Tablet PO (08:20)
[2021-03-04] MEDS: Thiamine Hydrochloride 100 MG Tablet PO (08:20)
--- NOTE | 2021-03-04 10:22 | DS.PCM_ITS ---
Providers Date of Admission: 03/01/21 Primary Care Physician: Dr. Enoch Ramirez MD Reason For Visit: ALCOHOL WITHDRAWAL Diagnosis Discharge Diagnosis (1) Alcohol withdrawal: Status: Acute Code(s): F10.239 - Alcohol dependence with withdrawal, unspecified Qualifiers: Complication of substance-induced condition: uncomplicated Qualified Code(s): F10.230 - Alcohol dependence with withdrawal, uncomplicated (2) Alcoholic hepatitis: Status: Chronic Code(s): K70.10 - Alcoholic hepatitis without ascites Qualifiers: Ascites presence: without ascites Qualified Code(s): K70.10 - Alcoholic hepatitis without ascites (3) [place] (obstructive sleep apnea): Status: Chronic Code(s): G47.33 - Obstructive sleep apnea (adult) (pediatric) (4) Hyponatremia: Status: Acute Code(s): E87.1 - Hypo-osmolality and hyponatremia (5) Leukopenia: Status: Acute Code(s): D72.819 - Decreased white blood cell count, unspecified Medications at Discharge Home Medications amlodipine 5 mg PO DAILY 10/15/16 lisinopril 20 mg PO DAILY 10/15/16 metoprolol succinate 25 mg PO DAILY 10/15/16 bupropion HCl 300 mg PO DAILY 07/12/18 pantoprazole 20 mg PO DAILY 07/12/18 trazodone 100 mg PO QHS 07/12/18 atorvastatin 40 mg PO QHS 03/01/21 escitalopram oxalate 10 mg PO QHS 03/01/21 folic acid 1 mg PO DAILY 03/01/21 Hospital Course Operations None Procedures None Summary of Care Provided Minutes Spent on Discharge: 25 Hospital Course: Mr. Mcclain is a 56-year-old white male who presented to emergency department [facility] on 03/01/2021 requesting services for inpatient detox from alcohol. On admission he reported he drinks approximately 1/5 of 40 proof vodka daily and has done so for many years. He states he has been through alcohol detox in the past and is active with the counseling center here in [place]. They advised him to come to the hospital for detox services. On admission he showed mild hypokalemia with mild alcoholic hepatitis and his blood alcohol level was 275. His tox screen was also positive for methamphetamines and cannabinoids. There was thought that the talk screen positive for meth may have been related to his outpatient Wellbutrin. He was admitted to the medical surgical floor and detox with phenobarb and supportive medications. He was placed on thiamine and folate throughout his stay. He was continued on his home blood pressure medications. He progressed well and on the a.m. of 03/04/2021 felt well enough to be discharged. He was seen by addiction medicine during his hospitalization and the plan for him to follow-up with his individual counselor at 180 on 03/05/2021 at 2 PM was planned. He was discharged home on 03/04/2021 in stable condition. Of note he had some elevated blood pressures during his hospitalization. They did fluctuate some and with his withdrawal we did not initiate new medications for his blood pressure but encouraged follow-up in 1 week with his PCP for blood pressure check and potential titration of his blood pressure medications. He is currently on amlodipine 5 mg, lisinopril 20 mg, and metoprolol 25 mg daily. Anticipate some of his blood pressure elevations are related to his withdrawal and significant anxiety during his hospitalization. Discharge diagnoses: Acute alcohol withdrawal Leukopenia Alcoholic hepatitis Bipolar disorder [place]ER[place] Hyperlipidemia GERD Depression Anxiety Obesity Physical Exam Const alert, oriented x3, no apparent distress, healthy appearing and well nourished Constitutional Narrative: Obese white male sitting up in bed, nursing at bedside, patient appears mildly anxious but nontoxic and comfortable General Appearance: cooperative, comfortable, well kempt and well developed Orientation / Consciousness: awake, oriented to person, oriented to place and oriented to time HEENT normocephalic, head/scalp atraumatic, hearing grossly normal bilaterally and moist oral mucous membranes Neck nuchal rigidity and thyroid normal General: trachea midline Resp normal respiratory effort, no retractions, no use of accessory muscles and clear to auscultation bilaterally Auscultation: Negative for crackles, rales, rhonchi or wheezes Cardio regular rate, regular rhythm, S1 normal heart sound, S2 normal heart sound, no murmurs, no rub, no gallops, no clicks and no JVD GI normal to inspection, nondistended, normoactive bowel sounds, soft to palpation, non-tender and non-distended Extremity no clubbing, cyanosis or edema Skin no rashes or lesions noted General Skin Exam: no breakdown Neuro oriented x3, moves all extremities and no focal motor deficits Sensorium / Orientation: awake and alert Speech: speech normal Psych thought process normal Mood & Affect: anxious Weight / BMI Weight Weight: 81.9 kg Body Mass Index (BMI) 29.1 ABG / Lab / Microbiology Data Result Diagrams: 03/03/21 06:00 03/03/21 06:00 D/C Instructions Discharge Diet: Low fat / Low cholesterol Discharge Activity: Return to Normal Activity Return to work on: 03/08/21 Meaningful Use Info Meaningful Use Diagnoses (Choose all that apply): None applicable Discharge Plan Admission Admit Date/Time: 03/01/21 16:43 Primary Reason for Your Visit: EtOH Detox Attending Provider: Mya Ulrich Primary Care Provider: Enoch Ramirez Discharge Orders/Prescriptions Prescriptions: Continued lisinopril 20 MG tablet 20 mg PO DAILY RF: 0 amlodipine 5 MG tablet 5 mg PO DAILY RF: 0 metoprolol succinate 25 MG tablet extended release 24 hr 25 mg PO DAILY RF: 0 trazodone 100 MG tablet 100 mg PO QHS RF: 0 pantoprazole 40 MG tablet 20 mg PO DAILY RF: 0 bupropion HCl 300 MG tablet extended release 24 hr 300 mg PO DAILY RF: 0 atorvastatin 40 mg tablet 40 mg PO QHS RF: 0 folic acid 1 mg Tablet 1 mg PO DAILY RF: 0 escitalopram oxalate 10 mg Tablet 10 mg PO QHS RF: 0 Referrals / Follow Up: Enoch Ramirez MD [Primary Care Provider] - In 1 Week (BP check) Disposition Disposition (needs filled in before D/C Order can be placed): Home, Self Care Charges/Coding Visit Charges Inpatient E&M: 95661 Disch Hosp
--- NOTE | 2021-03-04 10:46 | PHA.DC.MR ---
Pharmacy Service has performed discharge medication reconciliation for this patient. No new medications at time of discharge. Medications reviewed are from previously reported home medications. Home Medications amlodipine 5 mg PO DAILY 10/15/16 lisinopril 20 mg PO DAILY 10/15/16 metoprolol succinate 25 mg PO DAILY 10/15/16 bupropion HCl 300 mg PO DAILY 07/12/18 pantoprazole 20 mg PO DAILY 07/12/18 trazodone 100 mg PO QHS 07/12/18 atorvastatin 40 mg PO QHS 03/01/21 escitalopram oxalate 10 mg PO QHS 03/01/21 folic acid 1 mg PO DAILY 03/01/21 The patient's discharge medication list was reviewed for discrepancies and discrepancies were resolved.
--- NOTE | 2021-03-04 11:11 | NURSING ---
PT HOME MEDICATIONS LEFT IN MED DRAWER. PT NOTIFIED - STATES HE WILL BE BACK TO PICK THEM UP 03/05. MEDS LOCKED IN SYSTEM SUPPORT TECHNICIAN MED ROOM.
== END 2021-03-04 10:53 | disposition home or self-care (01) | DRG 896 ==
LOC: ED 16:01 → MS3 16:56
PROVIDERS: Admitting Provider Internal Medicine; Emergency Provider Emergency Medicine; PCP Family Medicine; Visit Provider Internal Medicine
DX: F10.230 Alcohol dependence with withdrawal, uncomplicated (principal); K85.20 Alcohol induced acute pancreatitis without necrosis or infection; D72.819 Decreased white blood cell count, unspecified; K70.10 Alcoholic hepatitis without ascites; F31.9 Bipolar disorder, unspecified; G47.33 Obstructive sleep apnea (adult) (pediatric); E78.5 Hyperlipidemia, unspecified; K21.9 Gastro-esophageal reflux disease without esophagitis; F41.9 Anxiety disorder, unspecified; E66.9 Obesity, unspecified; I10 Essential (primary) hypertension; Z91.19 Patient's noncompliance with other medical treatment and regimen; Z79.899 Other long term (current) drug therapy; Y90.8 Blood alcohol level of 240 mg/100 ml or more; Z68.29 Body mass index [BMI] 29.0-29.9, adult
CPT/HCPCS: 36415; 80053; 80307; 82077; 85025; 93005; 97802; 99284; 99406; J7030; A4216

== ENCOUNTER 2021-03-23 15:44 | Inpatient (IN) | payer OTHER, MEDICAID, SELFPAY ==
[2021-03-23 15:45] VITALS: BP 140/97; PULSE 91; RESP 16; TEMP 36.1; O2SAT 98; BMI 28.4
[2021-03-23 16:50] VITALS: BP 160/82; PULSE 94; RESP 18; TEMP 36.6; O2SAT 98
[2021-03-23 17:18] LABS: Absolute Lymphocyte Count 1.02 X10^3/uL (0.83-4.51); Absolute Neutrophil Count 1.4 X10^3/uL (2.0-7.7); Basophil# 0.03 X10^3/uL; Eosinophil# 0.05 X10^3/uL; Eosinophils% 1.7 % (0-5); Hematocrit 37.8 % (40-54); Hemoglobin 12.7 g/dL (13.0-16.5); Lymphocyte # 1.02 X10^3/ul (0.83-4.51); Lymphocyte % 35.5 % (19-41); Mean Corp Hgb Conc 33.6 g/dL (32-36); Mean Corpuscular Hgb 26.6 pg (27.0-32.0); Mean Corpuscular Volume 79.2 fL (80-94); Mean Platelet Vol. 9.3 fl (6.2-12.0); Monocyte# 0.35 X10^3/uL; Monocyte% 12.2 % (0-10); NRBC Flagged by Analyzer 0 % (0-5); Neutrophil % 48.9 % (47-70); Platelet Count 177 K/mm3 (150-450); RBC Distribution Width CV 18.3 % (11.6-14.6); RBC Distribution Width SD 53.1 fl (35.1-43.9); Red Blood Count 4.77 M/mm3 (4.6-6.2); White Blood Count 2.9 K/mm3 (4.4-11.0)
[2021-03-23] MEDS: Phenobarbital 32.4 MG Tablet 97.2 MG PO (17:30)
[2021-03-23 17:32] LABS: Prothrombin Time (Protime)PT. 12.8 SECONDS (11.7-14.9)
[2021-03-23 17:49] LABS: ALB/GLOB Ratio 0.9 RATIO (0.9-2.4); AST(SGOT) 301 U/L (15-37); Alanine Aminotransfer ALT/SGPT 200 U/L (16-61); Albumin, Serum 3.6 g/dL (3.2-5.0); Alkaline Phosphatase 156 U/L (45-117); Anion Gap 13 (5-15); BUN 8 mg/dL (7-18); BUN/Creat Ratio 10.3 RATIO (10-20); Calcium,Total 8.4 mg/dL (8.5-10.1); Chloride 97 mmol/L (98-107); Creatinine, Serum 0.78 mg/dL (0.70-1.30); EST Glomerular Filtration Rate 110 mL/min (>60); Est Glom Filt Rate - Afr Amer 133 mL/min (>60); Estimated Creatinine Clearance 94.29 ml/min; Globulin 3.9 g/dL (2.2-4.2); Glucose 96 mg/dL (74-106); Magnesium 1.8 mg/dL (1.6-2.6); Phosphorus 2.1 mg/dL (2.5-4.9); Potassium 3.5 mmol/L (3.5-5.1); Protein, Total 7.5 g/dL (6.4-8.2); Sodium Level 133 mmol/L (136-145); Thyroid Stim Hormone (TSH) 0.75 uIU/mL (0.358-3.74)
[2021-03-23 18:32] LABS: Amphetamine Urine VISTA NEGATIVE (<1000 ng/mL); Barbiturate Urine VISTA POSITIVE (< 200 ng/mL); Benzodiazepine Urine VISTA NEGATIVE (< 200 ng/mL); Cocaine Urine VISTA NEGATIVE (< 300 ng/mL); Ecstacy Urine VISTA POSITIVE (< 500 ng/mL); Methadone Urine VISTA NEGATIVE (< 300 ng/mL); PCP Urine VISTA NEGATIVE (< 25 ng/mL); THC Urine VISTA POSITIVE (< 50 ng/mL); Vista UDS pH Range 6
--- NOTE | 2021-03-23 18:50 | EX.ED.DYSGE1 ---
HPI History of Present Illness Chief Complaint: Substance Abuse Narrative Narrative: Patient presenting for evaluation requesting alcohol detoxification. Patient and couple of weeks ago went through the detox program. States that he fully completed this and was discharged. Patient states that he was sober for around 3 days, and then following that he states that he got news that a close contact had pancreatic cancer that caused him to feel depressed so he started drinking again. He states he really has not eaten anything over the course of the last week and a half and its a gallon of vodka a day. He did drink just prior to arrival. Patient is presenting now requesting detox. He denies being suicidal or homicidal. He denies any other somatic complaints other than tremulousness. Review of systems otherwise negative. [facility] Medical History Acute alcoholic pancreatitis Alcohol abuse Alcohol withdrawal Alcoholic hepatitis Anemia Anxiety Bipolar disorder Depression Essential (primary) hypertension ETOH abuse GERD (gastroesophageal reflux disease) Hypokalemia Hypomagnesemia Insomnia Leukopenia Non-smoker GER[place]IA (obstructive sleep apnea) GER[place]IA (obstructive sleep apnea) Pancreatitis Sleep apnea Substance abuse Home Medications amlodipine 5 mg PO DAILY 10/15/16 [History Last Taken 03/01/21] lisinopril 20 mg PO DAILY 10/15/16 [History Last Taken 03/01/21] metoprolol succinate 25 mg PO DAILY 10/15/16 [History Last Taken 03/01/21] bupropion HCl 300 mg PO DAILY 07/12/18 [History Last Taken 03/01/21] pantoprazole 20 mg PO DAILY 07/12/18 [History Last Taken 03/01/21] trazodone 100 mg PO QHS 07/12/18 [History Last Taken 02/28/21] atorvastatin 40 mg PO QHS 03/01/21 [History Last Taken 02/28/21] escitalopram oxalate 10 mg PO QHS 03/01/21 [History Last Taken 02/28/21] folic acid 1 mg PO DAILY 03/01/21 [History Last Taken 03/01/21] Allergy/AdvReac Type Severity Reaction Status Date / Time No Known Allergies Allergy Verified 03/23/21 15:48 Social History current occupational status: unemployed Smoking Status: Never smoker alcohol intake: former year quit: 2017 substance use type: does not use ROS ROS ED Constitutional Constitutional ED: Denies chills, fever(s) or weight loss Eyes Eyes: Denies change in vision ENT ENT ED: Denies rhinorrhea or sore throat Cardiovascular Cardiovascular: Denies chest pain Respiratory/Chest Respiratory/Chest: Denies cough Gastrointestinal Gastrointestinal: Denies abdominal pain, constipation, diarrhea, nausea or vomiting Genitourinary Genitourinary ED: Denies dysuria Musculoskeletal Musculoskeletal: Denies myalgias Integumentary Denies rash Neurologic Neurologic: Denies paresthesias or weakness Psychiatric Psychiatric: Reports other Details: Alcohol dependence Endocrine Endocrinology: Denies polydipsia or polyuria Hematologic/Lymphatic Hematologic/Lymphatic: Denies easy bleeding or easy bruising Allergic/Immunologic Allergic/Immunologic ED: Denies urticaria EXAM Physical Exam Const Vital Signs: 03/23/21 15:45 03/23/21 16:50 Temperature 97 F L 98 F Temperature Source Temporal Temporal Pulse Rate 91 94 Respiratory Rate 16 18 Blood Pressure 140/97 H 160/82 H Blood Pressure Mean 111 108 Blood Pressure Source Monitor Pulse Ox 98 98 Oxygen Delivery Method Room Air Room Air Positive well nourished and well developed Constitutional Narrative: Patient is unkempt General Appearance ED: well developed HEENT atraumatic; Negative for tenderness Eyes EOMs intact bilaterally General Eye ED: Negative for pale conjunctiva or scleral icterus Neck no lymphadenopathy and supple Chest Wall inspection of chest normal Resp normal respiratory effort and clear to auscultation bilaterally Cardio regular rate, regular rhythm, no murmurs and peripheral pulses 2+ throughout GI soft to palpation, non-tender, non-distended and no masses Extremity General Extremety ED: Negative for edema or tenderness General Extremity: Negative for edema Neuro oriented x3 and no sensory deficits noted Neuro Narrative: Patient does appear intoxicated but has no lateralizing deficits he is tremulous Sensorium / Orientation: alert Motor Exam: strength 5/5 throughout Psych mental status grossly normal Psych Narrative: No suicidal homicidal ideations, no signs of hallucinations Skin Lesions: no lesions Rashes: no rashes MDM MDM MDM Narrative Medical decision making narrative: Patient presented requesting alcohol detoxification. Patient is white blood cell count was depressed at 2.9 likely consistent with his alcoholism. Chemistry demonstrates the patient to have stable elevations of AST ALT and alkaline phosphatase. Patient was given phenobarbital in the emergency department. His alcohol was noted to be in 300s. Patient will be admitted for alcohol detox. Lab Data Labs: Laboratory Results - last 24 hr 03/23/21 03/23/21 03/23/21 17:05 17:05 17:05 WBC 2.9 L RBC 4.77 Hgb 12.7 L Hct 37.8 L MCV 79.2 L MCH 26.6 L MCHC 33.6 RDW Std Deviation 53.1 H RDW Coeff of [place] 18.3 H Plt Count 177 MPV 9.3 Immature Gran % (Auto) 0.700 Neut % (Auto) 48.9 Lymph % (Auto) 35.5 [place] % (Auto) 12.2 H Eos % (Auto) 1.7 Baso % (Auto) 1.0 Absolute Neuts (auto) 1.4 L Absolute Lymphs (auto) 1.02 Nucleated RBC % 0 PT 12.8 INR 1.0 Sodium 133 L Potassium 3.5 Chloride 97 L Carbon Dioxide 23.0 Anion Gap 13 BUN 8 Creatinine 0.78 Estim Creat Clear Calc 94.29 Est GFR (MDRD) Af Amer 133 Est GFR (MDRD) Non-Af 110 BUN/Creatinine Ratio 10.3 Glucose 96 Calcium 8.4 L Phosphorus 2.1 L Magnesium 1.8 Total Bilirubin 0.40 AST 301 H ALT 200 H Alkaline Phosphatase 156 H Total Protein 7.5 Albumin 3.6 Globulin 3.9 Albumin/Globulin Ratio 0.9 TSH 0.75 Urine Opiates Screen Urine Methadone Screen Ur Barbiturates Screen Ur Phencyclidine Scrn Ur Amphetamines Screen U Methamphetamin-MDMA U Benzodiazepines Scrn Urine Cocaine Screen U Cannabinoids Screen Ur Drug Screen Comment Ethyl Alcohol 03/23/21 03/23/21 17:05 17:40 WBC RBC Hgb Hct MCV MCH MCHC RDW Std Deviation RDW Coeff of [place] Plt Count MPV Immature Gran % (Auto) Neut % (Auto) Lymph % (Auto) [place] % (Auto) Eos % (Auto) Baso % (Auto) Absolute Neuts (auto) Absolute Lymphs (auto) Nucleated RBC % PT INR Sodium Potassium Chloride Carbon Dioxide Anion Gap BUN Creatinine Estim Creat Clear Calc Est GFR (MDRD) Af Amer Est GFR (MDRD) Non-Af BUN/Creatinine Ratio Glucose Calcium Phosphorus Magnesium Total Bilirubin AST ALT Alkaline Phosphatase Total Protein Albumin Globulin Albumin/Globulin Ratio TSH Urine Opiates Screen NEGATIVE Urine Methadone Screen NEGATIVE Ur Barbiturates Screen POSITIVE H Ur Phencyclidine Scrn NEGATIVE Ur Amphetamines Screen NEGATIVE U Methamphetamin-MDMA POSITIVE H U Benzodiazepines Scrn NEGATIVE Urine Cocaine Screen NEGATIVE U Cannabinoids Screen POSITIVE H Ur Drug Screen Comment Ethyl Alcohol 343.0 H* Discharge Plan Triage Chief Complaint: Substance Abuse ED Provider: Ilan Urrutia Dx/Rx/DC Orders Clinical Impression: ETOH abuse Prescriptions: No Action lisinopril 20 MG tablet 20 mg PO DAILY RF: 0 amlodipine 5 MG tablet 5 mg PO DAILY RF: 0 metoprolol succinate 25 MG tablet extended release 24 hr 25 mg PO DAILY RF: 0 trazodone 100 MG tablet 100 mg PO QHS RF: 0 pantoprazole 40 MG tablet 20 mg PO DAILY RF: 0 bupropion HCl 300 MG tablet extended release 24 hr 300 mg PO DAILY RF: 0 atorvastatin 40 mg tablet 40 mg PO QHS RF: 0 folic acid 1 mg Tablet 1 mg PO DAILY RF: 0 escitalopram oxalate 10 mg Tablet 10 mg PO QHS RF: 0 Primary Care Provider: Enoch Ramirez Referrals: Enoch Ramirez MD [Primary Care Provider] - Disposition Disposition: Acute Care Hospital [facility]
--- NOTE | 2021-03-23 19:24 | CM.ED ---
SW Note Referral Source: SHELBY MYERS Referral Reason: CHAVO LYNCH met with patient. Patient is in agreement with admission to [facility] program. He reports that he drug of choice is alcohol. He reports drinking 1/5 th of diluted vodka or more. Patient is linked with [facility]. Patient said that his last drink was at 1300 hours.Patient said that he had called [facility] and advised he was coming to the ED. Patient was going through detox and looked to be very uncomfortable thus this fiction writer did not explore extensively. Patient said that he had called [facility] and told them he was coming to the hospital. SW called La at [facility]. She indicated patient had called her to advise he was coming to the ED. SW to follow if additional SW needs arise. Plan: Admit to [facility]
[2021-03-23 19:39] VITALS: BP 135/88; PULSE 89; RESP 18; RESP 20; TEMP 36.8; O2SAT 99
--- NOTE | 2021-03-23 19:42 | HP.PCM.HOS_ITS ---
[facility] - General General Date of Admission: 03/23/21 HPI Narrative CHERELLE STEEN, is a 56 M with a significant history of alcoholism who presents to the emergency department for help with alcohol detoxification. Patient reports drinking a little over a fifth of diluted vodka each day. Reportedly he has been drinking for about 40 years. He was at a hospital and was discharged on 03/04/2021. Thereafter he stayed sober for a little while. However because his friend had pancreatic cancer patient resumed drinking. At the emergency department his alcohol level was 343. Patient was giving phenobarbital at the emergency department.. [facility] Medical History Acute alcoholic pancreatitis Alcohol abuse Alcohol withdrawal Alcoholic hepatitis Anemia Anxiety Bipolar disorder Depression Essential (primary) hypertension ETOH abuse GERD (gastroesophageal reflux disease) Hypokalemia Hypomagnesemia Insomnia Leukopenia Non-smoker GERMANIA (obstructive sleep apnea) GERMANIA (obstructive sleep apnea) Pancreatitis Sleep apnea Substance abuse Home Medications amlodipine 5 mg PO DAILY 10/15/16 [History Last Taken 03/01/21] lisinopril 20 mg PO DAILY 10/15/16 [History Last Taken 03/01/21] metoprolol succinate 25 mg PO DAILY 10/15/16 [History Last Taken 03/01/21] bupropion HCl 300 mg PO DAILY 07/12/18 [History Last Taken 03/01/21] pantoprazole 20 mg PO DAILY 07/12/18 [History Last Taken 03/01/21] trazodone 100 mg PO QHS 07/12/18 [History Last Taken 02/28/21] atorvastatin 40 mg PO QHS 03/01/21 [History Last Taken 02/28/21] escitalopram oxalate 10 mg PO QHS 03/01/21 [History Last Taken 02/28/21] folic acid 1 mg PO DAILY 03/01/21 [History Last Taken 03/01/21] Allergy/AdvReac Type Severity Reaction Status Date / Time No Known Allergies Allergy Verified 03/23/21 15:48 Family History Mother Cancer Father PD (Parkinson's disease) no surgical history Social History current occupational status: unemployed Smoking Status: Never smoker alcohol intake: former year quit: 2017 substance use type: does not use ROS ROS Narrative Constitutional: Reports anorexia. Denies change in weight Eyes: Denies blurry vision, change in eye color, change in vision, discharge from eye(s), double vision, erythema, eye pain, loss of vision or other HEENT: Denies abnormal hearing, dysphagia, ear pain, epistaxis, headache(s), hearing loss, nasal congestion, nasal discharge, post nasal drip, sinus pressure, sore throat or other Cardiovascular: Denies chest pain or palpitations. Denies dyspnea on exertion, orthopnea and paroxysmal nocturnal dyspnea Respiratory/Chest: Denies cough, excessive phlegm production, shortness of breath with exertion and wheezing Gastrointestinal: Reports nausea and vomiting. Denies abdominal pain, coffee ground emesis, constipation, diarrhea, dyspepsia, hematemesis, hematochezia, loose stools, melena, or other Genitourinary: Denies burning urination, difficulty urinating, dysuria, hematuria, nocturia, urinary frequency, urinary hesitancy, urinary incontinence, urinary urgency or other Musculoskeletal: Denies arthralgias, back pain, joint pain, joint stiffness, joint swelling, myalgias, neck pain or other Neurologic: Reports tremulousness. Denies abnormal gait, abnormal speech, confusion, disequilibrium, dizziness, focal weakness, headache(s), numbness, paresthesias, seizure-like activity, seizures, syncope, tingling, or other Psychiatric: Denies , homicidal ideation, suicidal ideation or other Endocrinology: Denies change in body appearance, cold intolerance, excessive sweating, heat intolerance, polydipsia, polyuria or other Hematologic/Lymphatic: Denies anemia, easy bleeding, easy bruising, lymphadenopathy or other Integumentary: Denies rashes Allergic/Immunologic: Denies rhinitis, hives, eczema, asthma or other Vital Signs Vital Signs Vital Signs: 03/23/21 15:45 03/23/21 16:50 03/23/21 19:39 Temperature 97 F L 98 F 98.3 F Temperature Source Temporal Temporal Oral Pulse Rate 91 94 89 Respiratory Rate 16 18 20 H Blood Pressure 140/97 H 160/82 H 135/88 H Blood Pressure Mean 111 108 103 Blood Pressure Source Monitor Pulse Ox 98 98 99 Oxygen Delivery Method Room Air Room Air Room Air Weight Weight: 79.832 kg Body Mass Index (BMI) 28.4 Physical Exam Narrative Physical exam: General: Well-nourished, well-developed. Head: Normocephalic, atraumatic, no tenderness Eyes: PERRLA, EOMI ENT, no trauma, moist mucous membranes, no rhinorrhea Neck: Nontender, full range of motion, no spinal tenderness, deformities, step- off CVS: Regular rate and rhythm. S1-S2 present. No murmur, gallop or rub. Respiratory : clear to auscultation bilaterally, chest wall nontender, no wheezing Abdomen: Soft, nontender, nondistended, normal bowel sounds, no masses : Deferred Back: Nontender, no CVA tenderness, no midline spinal tenderness, deformities, step-offs Extremities: Nontender full range of motion, no trauma Skin: Normal color, no trauma, abrasions Neuro: Alert, oriented, cranial nerves II through XII grossly intact. Tremors. Psychiatry: Anxious. Results Lab / Micro Data Result Diagrams: 03/23/21 17:05 03/23/21 17:05 Labs: Laboratory Results - last 24 hr 03/23/21 17:05: WBC 2.9 L, RBC 4.77, Hgb 12.7 L, Hct 37.8 L, MCV 79.2 L, MCH 26.6 L, MCHC 33.6, RDW Std Deviation 53.1 H, RDW Coeff of [place] 18.3 H, Plt Count 177, MPV 9.3, Immature Gran % (Auto) 0.700, Neut % (Auto) 48.9, Lymph % (Auto) 35.5, [place] % (Auto) 12.2 H, Eos % (Auto) 1.7, Baso % (Auto) 1.0, Absolute Neuts (auto) 1.4 L, Absolute Lymphs (auto) 1.02, Nucleated RBC % 0 03/23/21 17:05: PT 12.8, INR 1.0 03/23/21 17:05: Sodium 133 L, Potassium 3.5, Chloride 97 L, Carbon Dioxide 23.0, Anion Gap 13, BUN 8, Creatinine 0.78, Estim Creat Clear Calc 94.29, Est GFR (MDRD) Af Amer 133, Est GFR (MDRD) Non-Af 110, BUN/Creatinine Ratio 10.3, Glucose 96, Calcium 8.4 L, Phosphorus 2.1 L, Magnesium 1.8, Total Bilirubin 0.40, AST 301 H, ALT 200 H, Alkaline Phosphatase 156 H, Total Protein 7.5, Albumin 3.6, Globulin 3.9, Albumin/Globulin Ratio 0.9, TSH 0.75 03/23/21 17:05: Ethyl Alcohol 343.0 H* 03/23/21 17:40: Urine Opiates Screen NEGATIVE, Urine Methadone Screen NEGATIVE, Ur Barbiturates Screen POSITIVE H, Ur Phencyclidine Scrn NEGATIVE, Ur Amphetamines Screen NEGATIVE, U Methamphetamin-MDMA POSITIVE H, U Benzodiazepines Scrn NEGATIVE, Urine Cocaine Screen NEGATIVE, U Cannabinoids Screen POSITIVE H, Ur Drug Screen Comment Assessment & Plan Assessment/Plan (1) Alcohol withdrawal: QUALIFIERS: Complication of substance-induced condition: with perceptual disturbance Qualified Code(s): F10.232 - Alcohol dependence with withdrawal with perceptual disturbance (2) Bicytopenia: PLAN: Alcohol dependence; alcohol withdrawal and desire for detoxification The patient was given phenobarbital at the emergency department. We will put patient'on phenobarbital taper. Start other adjunctive medications: Gabapentin as needed; dicyclomine as needed; Vistaril as needed; Imodium as needed; trazodone as needed; Zofran as needed; scheduled thiamine; and schedule folic acid. Monitor CIWA score Bicytopenia Review of emergent department labs showed a white count of 2.9; and hemoglobin of 12.7. Like secondary to alcoholism. Trend CBC. Hyponatremia and hypophosphatemia Review of Jennifer department labs showed mild hyponatremia with sodium of 133 and phosphorus low at 2.1 Hyponatremia likely secondary to beer potomania Neutra-Phos ordered. DVT prophylaxis Low risk Encourage to ambulate Charges/Coding Visit Charges Inpatient E&M: 14227 Init Hosp L3
[2021-03-23 20:28] VITALS: BP 145/86; PULSE 89; RESP 24; TEMP 36.8; O2SAT 97
[2021-03-23 20:32] VITALS: BMI 27.2
[2021-03-23] MEDS: Phenobarbital 32.4 MG Tablet 64.8 MG PO (20:42)
[2021-03-23] MEDS: traZODone 100 MG Tablet PO (20:42)
[2021-03-23] MEDS: hydrOXYzine PAM 25 MG Capsule 50 MG PO (20:42)
[2021-03-23] MEDS: Gabapentin 300 MG Capsule PO (20:42)
[2021-03-23] MEDS: Na Biphos/Potassium Phosphate PACKET 1 PACKET PO (22:29)
--- NOTE | 2021-03-23 23:30 | PCS.PANDOC ---
PANDEMIC DOCUMENTATION INITIATED: Date: 02/22/2021 Time: 190
[2021-03-24] VITALS (7 sets, daily range): BP systolic 137–166; BP diastolic 85–109; PULSE 85–104; RESP 16–22; TEMP 36.2–37.2; O2SAT 94–100
[2021-03-24] MEDS: hydrOXYzine PAM 25 MG Capsule 50 MG PO ×3 (00:59→21:45)
[2021-03-24] MEDS: Phenobarbital 32.4 MG Tablet 64.8 MG PO ×6 (00:59→21:46)
[2021-03-24] MEDS: Gabapentin 300 MG Capsule PO ×2 (05:00→21:46)
--- NOTE | 2021-03-24 07:32 | PN.HOSP_ITS ---
Subjective Subjective Seen and examined Patient is having tremors, anxiety, mild tachycardia, tachypnea, disoriented to time but no hallucination, delusion. CIWA total score 17. Ativan 2 mg IV ordered. Objective Data Objective Data Vital Signs: Vital Signs Temp Pulse Resp BP Pulse Ox 99.0 F 101 H 18 166/87 H 97 03/24/21 04:59 03/24/21 04:59 03/24/21 04:59 03/24/21 04:59 03/24/21 04:59 Oxygen Delivery Method Room Air Weight: 168 lb 13.985 oz Body Mass Index (BMI) 27.2 Intake & Output: Intake and Output for Last 24 Hours 03/22/21 03/23/21 03/24/21 23:59 23:59 23:59 Intake Total 600 / 600 Balance 600 / 600 Lab / Micro Data Result Diagrams: 03/24/21 07:13 03/23/21 17:05 Labs: Laboratory Results - last 24 hr 03/23/21 17:05: WBC 2.9 L, RBC 4.77, Hgb 12.7 L, Hct 37.8 L, MCV 79.2 L, MCH 26.6 L, MCHC 33.6, RDW Std Deviation 53.1 H, RDW Coeff of [place] 18.3 H, Plt Count 177, MPV 9.3, Immature Gran % (Auto) 0.700, Neut % (Auto) 48.9, Lymph % (Auto) 35.5, [place] % (Auto) 12.2 H, Eos % (Auto) 1.7, Baso % (Auto) 1.0, Absolute Neuts (auto) 1.4 L, Absolute Lymphs (auto) 1.02, Nucleated RBC % 0 03/23/21 17:05: PT 12.8, INR 1.0 03/23/21 17:05: Sodium 133 L, Potassium 3.5, Chloride 97 L, Carbon Dioxide 23.0, Anion Gap 13, BUN 8, Creatinine 0.78, Estim Creat Clear Calc 94.29, Est GFR (MDRD) Af Amer 133, Est GFR (MDRD) Non-Af 110, BUN/Creatinine Ratio 10.3, Glucose 96, Calcium 8.4 L, Phosphorus 2.1 L, Magnesium 1.8, Total Bilirubin 0.40, AST 301 H, ALT 200 H, Alkaline Phosphatase 156 H, Total Protein 7.5, Albumin 3.6, Globulin 3.9, Albumin/Globulin Ratio 0.9, TSH 0.75 03/23/21 17:05: Ethyl Alcohol 343.0 H* 03/23/21 17:40: Urine Opiates Screen NEGATIVE, Urine Methadone Screen NEGATIVE, Ur Barbiturates Screen POSITIVE H, Ur Phencyclidine Scrn NEGATIVE, Ur Amphetamines Screen NEGATIVE, U Methamphetamin-MDMA POSITIVE H, U Benzodiazepines Scrn NEGATIVE, Urine Cocaine Screen NEGATIVE, U Cannabinoids Screen POSITIVE H, Ur Drug Screen Comment 03/23/21 20:54: Phenobarbital 8.0 L Physical Exam Narrative General: Disoriented to time. Restless, anxious. Mild lethargic HEENT: Atraumatic, PERRLA, EOMI, Normocephalic Oral: No Gingival or Mucosal Lesions/ Ulcerations Neck: Supple, No JVD, Negative Carotid Bruits Lungs: Air entry diminished in bilateral lung bases. No crepitation/rhonchi. Tachypneic Cardiovascular: Sinus tachycardia, Normal S1, Normal S2, No murmurs Abdomen: Bowel Sounds Present, Soft, Non Tender, Non-Distended : No renal angle tenderness. No suprapubic tenderness. Extremities: No edema, Capillary Refill Less than 3 Seconds Skin: No rashes, No breakdown Musculoskeletal: No Tenderness to Palpation of Joints or Extremities Neurological: Tremors generalized. Cranial nerves II-XII grossly intact, DTR 2+/4 and Symmetrical, Neuro grossly intact Psych/Mental Status: Anxious and restless. Assessment & Plan Assessment/Plan (1) Alcohol withdrawal: QUALIFIERS: Complication of substance-induced condition: with perceptual disturbance Qualified Code(s): F10.232 - Alcohol dependence with withdrawal with perceptual disturbance PLAN: 1. Acute alcohol withdrawal syndrome moderate with history of chronic alcohol use and dependence: Patient CIWA score is 17. Discussed with the nursing staff. Started on Ativan 2 mg IV now and then as per CIWA score. Patient is on phenobarbital and other supportive medications. Patient denies cannabinoids but U tox shows positive barbiturates, methamphetamine and cannabinoids. Ethyl alcohol level was 343. On thiamine, folic acid. Patient withdrawal symptoms gets worse or is transverse will need to be transferred to ICU and might need Precedex drip. 2. Patient had neutropenia, resolved. Mild hypochromic microcytic anemia presents with history of iron deficiency. Patient denies any GI bleed. No hematemesis melena. Hemoglobin is 12.0. We will start on iron supplement. Protonix 40 mg p.o. twice daily started. 3. Hyponatremia and hypophosphatemia: On electrolyte replacement. Started on Ringer lactate. Phosphorus was 2.1. Magnesium 1.8. On Neutra-Phos VTE prophylaxis: Bilateral SCDs Laboratory Results 03/23/21 17:05: Sodium 133 L, Potassium 3.5, Chloride 97 L, Carbon Dioxide 23.0, Anion Gap 13, BUN 8, Creatinine 0.78, Estim Creat Clear Calc 94.29, Est GFR (MDRD) Af Amer 133, Est GFR (MDRD) Non-Af 110, BUN/Creatinine Ratio 10.3, G lucose 96, Calcium 8.4 L, Phosphorus 2.1 L, Magnesium 1.8, Total Bilirubin 0.40, AST 301 H, ALT 200 H, Alkaline Phosphatase 156 H, Total Protein 7.5, Albumin 3.6, Globulin 3.9, Albumin/Globulin Ratio 0.9, TSH 0.75 03/23/21 17:05: Ethyl Alcohol 343.0 H* 03/23/21 17:40: Urine Opiates Screen NEGATIVE, Urine Methadone Screen NEGATIVE, Ur Barbiturates Screen POSITIVE H, Ur Phencyclidine Scrn NEGATIVE, Ur Amphetamines Screen NEGATIVE, U Methamphetamin-MDMA POSITIVE H, U Benzodiazepines Scrn NEGATIVE, Urine Cocaine Screen NEGATIVE, U Cannabinoids Screen POSITIVE H, Ur Drug Screen Comment 03/23/21 20:54: Phenobarbital 8.0 L 03/24/21 07:13: WBC 4.9, RBC 4.50 L, Hgb 12.0 L, Hct 35.8 L, MCV 79.6 L, MCH 26.7 L, MCHC 33.5, RDW Std Deviation 53.5 H, RDW Coeff of [place] 18.5 H, Plt Count 156, MPV 9.7, Immature Gran % (Auto) 0.200, Neut % (Auto) 76.9 H, Lymph % (Auto) 14.8 L, [place] % (Auto) 7.5, Eos % (Auto) 0.4, Baso % (Auto) 0.2, Absolute Neuts (auto) 3.8, Absolute Lymphs (auto) 0.73 L, Nucleated RBC % 0 Charges/Coding Visit Charges Inpatient E&M: 06948 Subs Hosp L2
[2021-03-24 07:33] LABS: Absolute Lymphocyte Count 0.73 X10^3/uL (0.83-4.51); Absolute Neutrophil Count 3.8 X10^3/uL (2.0-7.7); Basophil# 0.01 X10^3/uL; Basophil% 0.2 % (0-1); Eosinophil# 0.02 X10^3/uL; Eosinophils% 0.4 % (0-5); Hematocrit 35.8 % (40-54); Lymphocyte # 0.73 X10^3/ul (0.83-4.51); Lymphocyte % 14.8 % (19-41); Mean Corp Hgb Conc 33.5 g/dL (32-36); Mean Corpuscular Hgb 26.7 pg (27.0-32.0); Mean Corpuscular Volume 79.6 fL (80-94); Mean Platelet Vol. 9.7 fl (6.2-12.0); Monocyte# 0.37 X10^3/uL; Monocyte% 7.5 % (0-10); NRBC Flagged by Analyzer 0 % (0-5); Neutrophil # 3.79 X10^3/uL (2.7-7.7); Neutrophil % 76.9 % (47-70); Platelet Count 156 K/mm3 (150-450); RBC Distribution Width CV 18.5 % (11.6-14.6); RBC Distribution Width SD 53.5 fl (35.1-43.9); White Blood Count 4.9 K/mm3 (4.4-11.0)
[2021-03-24] MEDS: Thiamine Hydrochloride 100 MG Tablet PO (08:48)
[2021-03-24] MEDS: Folic Acid 1 MG Tablet PO (08:48)
[2021-03-24] MEDS: LORazepam 2 MG/ML Syringe IV ×2 (08:52→20:19)
[2021-03-24 09:24] LABS: Anion Gap 13 (5-15); BUN 7 mg/dL (7-18); Calcium,Total 8.1 mg/dL (8.5-10.1); Chloride 94 mmol/L (98-107); Creatinine, Serum 0.78 mg/dL (0.70-1.30); EST Glomerular Filtration Rate 110 mL/min (>60); Est Glom Filt Rate - Afr Amer 133 mL/min (>60); Estimated Creatinine Clearance 94.29 ml/min; Glucose 130 mg/dL (74-106); Magnesium 1.2 mg/dL (1.6-2.6); Phosphorus 3.7 mg/dL (2.5-4.9); Potassium 3.3 mmol/L (3.5-5.1); Sodium Level 131 mmol/L (136-145)
--- NOTE | 2021-03-24 10:32 | ADDICTION ---
This commercial lines underwriter attempted to meet with PT. PT did not rouse to 3x verbal queuing. [facility] staff will attempt to meet with PT at next visit on 03/24.
[2021-03-24] MEDS: Lactated Ringers 1,000 ML 125 ML IV (11:07)
[2021-03-24] MEDS: Na Biphos/Potassium Phosphate PACKET 1 PACKET PO ×3 (11:07→21:46)
[2021-03-24] MEDS: Pantoprazole Sodium 40 MG Tablet PO ×2 (11:07→21:46)
[2021-03-24] MEDS: traZODone 100 MG Tablet PO (21:46)
[2021-03-25] VITALS (8 sets, daily range): BP systolic 114–143; BP diastolic 74–96; PULSE 79–98; RESP 14–18; TEMP 36.1–36.8; O2SAT 95–98
[2021-03-25] MEDS: Phenobarbital 32.4 MG Tablet 64.8 MG PO ×6 (01:14→22:11)
[2021-03-25] MEDS: hydrOXYzine PAM 25 MG Capsule 50 MG PO ×3 (05:19→20:00)
[2021-03-25 06:34] LABS: Anion Gap 11 (5-15); BUN 7 mg/dL (7-18); BUN/Creat Ratio 9.1 RATIO (10-20); Chloride 93 mmol/L (98-107); Creatinine, Serum 0.77 mg/dL (0.70-1.30); EST Glomerular Filtration Rate 111 mL/min (>60); Est Glom Filt Rate - Afr Amer 135 mL/min (>60); Estimated Creatinine Clearance 95.52 ml/min; Glucose 96 mg/dL (74-106); Magnesium 1.2 mg/dL (1.6-2.6); Phosphorus 3.8 mg/dL (2.5-4.9); Potassium 2.9 mmol/L (3.5-5.1); Sodium Level 129 mmol/L (136-145)
[2021-03-25] MEDS: Pantoprazole Sodium 40 MG Tablet PO ×2 (09:51→20:01)
[2021-03-25] MEDS: Thiamine Hydrochloride 100 MG Tablet PO (09:51)
[2021-03-25] MEDS: Folic Acid 1 MG Tablet PO (09:51)
[2021-03-25] MEDS: Metoprolol(XL)Succ 25 MG Tablet PO (09:51)
[2021-03-25] MEDS: Na Biphos/Potassium Phosphate PACKET 1 PACKET PO ×3 (09:51→22:13)
[2021-03-25] MEDS: Lisinopril 20 MG Tablet PO (09:51)
[2021-03-25] MEDS: amLODIPine 5 MG Tablet PO (09:51)
[2021-03-25] MEDS: buPROPion (XL) 300 MG TABLET.XL PO (09:51)
[2021-03-25] MEDS: Gabapentin 300 MG Capsule PO ×2 (09:51→18:55)
--- NOTE | 2021-03-25 12:14 | ADDICTION ---
This brief writer met with PT to conduct ASAM, MSE, AUDIT assessments and to plan for d/c. PT A+Ox4 and participated actively. All assessments completed, faxed to [facility] and placed in PT's chart. PT plans to f/u with individual counselor at [facility] for follow-up counseling services. PT did not indicate a need for transportation post d/c from [facility].
[2021-03-25] MEDS: Loperamide 2 MG Capsule PO (14:19)
--- NOTE | 2021-03-25 16:23 | PN.HOSP_ITS ---
Subjective Subjective Patient is still having anxiety and restlessness. He has flushing on his face and upper chest. Objective Data Objective Data Vital Signs: Vital Signs Temp Pulse Resp BP Pulse Ox 98.2 F 90 16 114/74 95 03/25/21 14:39 03/25/21 14:39 03/25/21 14:39 03/25/21 14:39 03/25/21 14:39 Oxygen Delivery Method Room Air Weight: 168 lb 13.985 oz Body Mass Index (BMI) 27.2 Intake & Output: Intake and Output for Last 24 Hours 03/23/21 03/24/21 03/25/21 23:59 23:59 23:59 Intake Total 1600 / 1600 650 / 650 Balance 1600 / 1600 650 / 650 Lab / Micro Data Result Diagrams: 03/24/21 07:13 03/25/21 05:46 Labs: Laboratory Results - last 24 hr 03/25/21 05:46: Sodium 129 L, Potassium 2.9 L, Chloride 93 L, Carbon Dioxide 25.0, Anion Gap 11, BUN 7, Creatinine 0.77, Estim Creat Clear Calc 95.52, Est GFR (MDRD) Af Amer 135, Est GFR (MDRD) Non-Af 111, BUN/Creatinine Ratio 9.1 L, Glucose 96, Calcium 8.0 L, Phosphorus 3.8, Magnesium 1.2 L Physical Exam Narrative General: Oriented to place and time. Restless, anxious. Still lethargic HEENT: Atraumatic, PERRLA, EOMI, Normocephalic Oral: No Gingival or Mucosal Lesions/ Ulcerations Neck: Supple, No JVD, Negative Carotid Bruits Lungs: Air entry diminished in bilateral lung bases. No crepitation/rhonchi. Cardiovascular: Sinus tachycardia, Normal S1, Normal S2, No murmurs Abdomen: Bowel Sounds Present, Soft, Non Tender, Non-Distended : No renal angle tenderness. No suprapubic tenderness. Extremities: No edema, Capillary Refill Less than 3 Seconds Skin: No rashes, No breakdown Musculoskeletal: No Tenderness to Palpation of Joints or Extremities Neurological: Tremors generalized. Cranial nerves II-XII grossly intact, DTR 2+/4 and Symmetrical, Neuro grossly intact Psych/Mental Status: Anxious and restless. Assessment & Plan Assessment/Plan (1) Alcohol withdrawal: QUALIFIERS: Complication of substance-induced condition: with perceptual disturbance Qualified Code(s): F10.232 - Alcohol dependence with withdrawal with perceptual disturbance PLAN: 1. Acute alcohol withdrawal syndrome moderate with history of chronic alcohol use and dependence: Patient CIWA score is 17. Discussed with the nursing staff. Started on Ativan 2 mg IV now and then as per CIWA score. Patient is on phenobarbital and other supportive medications. Patient denies cannabinoids but U tox shows positive barbiturates, methamphetamine and cannabinoids. Ethyl alcohol level was 343. On thiamine, folic acid. Patient withdrawal symptoms gets worse or is transverse will need to be transferred to ICU and might need Precedex drip. 03/25: CIWA score is 12. Heart rate 90/min. Not hypotensive. Currently symptoms controlled on present regimen. 2. Patient had neutropenia, resolved. Mild hypochromic microcytic anemia presents with history of iron deficiency. Patient denies any GI bleed. No hem atemesis melena. Hemoglobin is 12.0. We will start on iron supplement. Protonix 40 mg p.o. twice daily started. 3. Hyponatremia and hypophosphatemia: On electrolyte replacement. Started on Ringer lactate. Phosphorus was 2.1. Magnesium 1.8. On Neutra-Phos 03/25: Patient has severe hypokalemia, hypomagnesemia: Potassium and magnesium were replaced. Phosphorus level normal. Patient is on Neutra-Phos. VTE prophylaxis: Bilateral SCDs Laboratory Results 03/25/21 05:46: Sodium 129 L, Potassium 2.9 L, Chloride 93 L, Carbon Dioxide 25.0, Anion Gap 11, BUN 7, Creatinine 0.77, Estim Creat Clear Calc 95.52, Est GF R (MDRD) Af Amer 135, Est GFR (MDRD) Non-Af 111, BUN/Creatinine Ratio 9.1 L, Glucose 96, Calcium 8.0 L, Phosphorus 3.8, Magnesium 1.2 L Charges/Coding Visit Charges Inpatient E&M: 52378 Subs Hosp L2
[2021-03-25 17:50] LABS: Magnesium 1.1 mg/dL (1.6-2.6)
[2021-03-25] MEDS: Potassium Chloride 10mEq/100mL 10 MEQ/100 ML IV.SOLN. 100 MEQ IV BOLUS ×4 (17:51→22:11)
[2021-03-25] MEDS: LORazepam 1 MG Tablet 2 MG PO ×2 (18:55→22:11)
[2021-03-25] MEDS: Magnesium Sulfate 4gm/100mL 4 GM/100 ML IV.SOLN. IV (18:56)
[2021-03-25] MEDS: traZODone 100 MG Tablet PO (20:00)
[2021-03-25] MEDS: Escitalopram Oxalate 10 MG Tablet PO (20:00)
[2021-03-25] MEDS: Atorvastatin Calcium 40 MG Tablet PO (20:01)
[2021-03-25] MEDS: Dicyclomine 10 MG Capsule 20 MG PO (20:01)
[2021-03-26] VITALS (7 sets, daily range): BP systolic 98–137; BP diastolic 69–99; PULSE 62–87; RESP 16–18; TEMP 36.1–36.8; O2SAT 95–100
[2021-03-26] MEDS: hydrOXYzine PAM 25 MG Capsule 50 MG PO ×3 (01:31→21:18)
[2021-03-26] MEDS: Phenobarbital 32.4 MG Tablet 64.8 MG PO ×3 (01:31→11:06)
[2021-03-26] MEDS: Loperamide 2 MG Capsule PO (01:31)
[2021-03-26] MEDS: Ibuprofen 600 MG Tablet PO (01:31)
[2021-03-26 05:23] LABS: Absolute Lymphocyte Count 1.15 X10^3/uL (0.83-4.51); Absolute Neutrophil Count 2.7 X10^3/uL (2.0-7.7); Basophil# 0.02 X10^3/uL; Basophil% 0.5 % (0-1); Eosinophil# 0.14 X10^3/uL; Eosinophils% 3.2 % (0-5); Hematocrit 32.8 % (40-54); Hemoglobin 10.6 g/dL (13.0-16.5); Lymphocyte # 1.15 X10^3/ul (0.83-4.51); Lymphocyte % 26.6 % (19-41); Mean Corp Hgb Conc 32.3 g/dL (32-36); Mean Corpuscular Hgb 26.8 pg (27.0-32.0); Mean Corpuscular Volume 82.8 fL (80-94); Monocyte# 0.33 X10^3/uL; Monocyte% 7.6 % (0-10); NRBC Flagged by Analyzer 0 % (0-5); Neutrophil # 2.66 X10^3/uL (2.7-7.7); Neutrophil % 61.6 % (47-70); Platelet Count 132 K/mm3 (150-450); RBC Distribution Width CV 18.8 % (11.6-14.6); RBC Distribution Width SD 57.8 fl (35.1-43.9); Red Blood Count 3.96 M/mm3 (4.6-6.2); White Blood Count 4.3 K/mm3 (4.4-11.0)
[2021-03-26 05:49] LABS: Anion Gap 10 (5-15); BUN 10 mg/dL (7-18); BUN/Creat Ratio 10.3 RATIO (10-20); Calcium,Total 8.1 mg/dL (8.5-10.1); Chloride 95 mmol/L (98-107); Creatinine, Serum 0.97 mg/dL (0.70-1.30); EST Glomerular Filtration Rate 85 mL/min (>60); Est Glom Filt Rate - Afr Amer 103 mL/min (>60); Estimated Creatinine Clearance 75.82 ml/min; Glucose 113 mg/dL (74-106); Magnesium 2.6 mg/dL (1.6-2.6); Potassium 3.3 mmol/L (3.5-5.1); Sodium Level 130 mmol/L (136-145)
[2021-03-26 06:03] LABS: CPK Total, Creatine Kinase 96 U/L (39-308)
[2021-03-26] MEDS: Na Biphos/Potassium Phosphate PACKET 1 PACKET PO ×4 (08:34→21:17)
[2021-03-26] MEDS: Folic Acid 1 MG Tablet PO (08:34)
[2021-03-26] MEDS: Thiamine Hydrochloride 100 MG Tablet PO (08:34)
[2021-03-26] MEDS: amLODIPine 5 MG Tablet PO (09:01)
[2021-03-26] MEDS: Lisinopril 20 MG Tablet PO (09:01)
[2021-03-26] MEDS: Metoprolol(XL)Succ 25 MG Tablet PO (09:01)
[2021-03-26] MEDS: Pantoprazole Sodium 40 MG Tablet PO ×2 (09:01→21:17)
[2021-03-26] MEDS: LORazepam 1 MG Tablet 2 MG PO (09:03)
[2021-03-26] MEDS: buPROPion (XL) 300 MG TABLET.XL PO (09:04)
--- NOTE | 2021-03-26 11:19 | ADDICTION ---
This worker met with pt to discuss treatment options. PT is declining residential treatment and reports he will follow-up with his therapist at [facility].
[2021-03-26] MEDS: Phenobarbital 32.4 MG Tablet PO ×2 (18:25→23:59)
--- NOTE | 2021-03-26 19:45 | PCM.PN.HOSP ---
Subjective Subjective Patient was seen and examined today, he is still symptomatic with alcohol withdrawal although at times he is very sleepy and lethargic. I have decided to reduce the patient's phenobarbital at this time and observe the patient for any changes. Objective Data Objective Data Vital Signs: Vital Signs Temp Pulse Resp BP Pulse Ox 97.9 F 80 16 110/69 98 03/26/21 14:23 03/26/21 14:23 03/26/21 14:23 03/26/21 14:23 03/26/21 14:25 Oxygen Flow Rate (L/min) 2 Oxygen Delivery Method Nasal Cannula Weight: 76.6 kg Body Mass Index (BMI) 27.2 Intake & Output: Intake and Output for Last 24 Hours 03/24/21 03/25/21 03/26/21 23:59 23:59 23:59 Intake Total 1600 / 1600 1150 / 1150 115.25 / 115.25 Balance 1600 / 1600 1150 / 1150 115.25 / 115.25 Lab / Micro Data Result Diagrams: 03/26/21 04:58 03/26/21 04:58 Labs: Laboratory Results - last 24 hr 03/26/21 04:58: Sodium 130 L, Potassium 3.3 L, Chloride 95 L, Carbon Dioxide 25.0, Anion Gap 10, BUN 10, Creatinine 0.97, Estim Creat Clear Calc 75.82, Est GFR (MDRD) Af Amer 103, Est GFR (MDRD) Non-Af 85, BUN/Creatinine Ratio 10.3, Glucose 113 H, Calcium 8.1 L, Magnesium 2.6 03/26/21 04:58: WBC 4.3 L, RBC 3.96 L, Hgb 10.6 L, Hct 32.8 L, MCV 82.8, MCH 26.8 L, MCHC 32.3, RDW Std Deviation 57.8 H, RDW Coeff of [place] 18.8 H, Plt Count 132 L, MPV 10.0, Immature Gran % (Auto) 0.500, Neut % (Auto) 61.6, Lymph % (Auto) 26.6, [place] % (Auto) 7.6, Eos % (Auto) 3.2, Baso % (Auto) 0.5, Absolute Neuts (auto) 2.7, Absolute Lymphs (auto) 1.15, Nucleated RBC % 0 03/26/21 04:58: Phosphorus 4.0, Total Creatine Kinase 96 Physical Exam Const alert, oriented x3 and average body habitus Constitutional Narrative: Patient appears tremorous, he is alert and responds appropriately to questions General Appearance: cooperative, well kempt and well developed Orientation / Consciousness: awake, oriented to person, oriented to place and oriented to time HEENT normocephalic, head/scalp atraumatic and moist oral mucous membranes Head and Scalp: normocephalic Eyes PERRL, EOMs intact bilaterally and conjunctivae normal Neck nuchal rigidity, no lymphadenopathy, supple, no JVD, thyroid normal and no carotid bruits General: trachea midline Resp normal respiratory effort, no retractions, no use of accessory muscles and clear to auscultation bilaterally Auscultation: Negative for rales, rhonchi or wheezes Cardio regular rate, regular rhythm, S1 normal heart sound, S2 normal heart sound, no murmurs, no rub, no gallops and no clicks GI normal to inspection, nondistended, normoactive bowel sounds, soft to palpation, non-tender and non-distended Extremity normal to inspection and no clubbing, cyanosis or edema Skin no rashes or lesions noted, no wounds, skin turgor normal and no jaundice General Skin Exam: no breakdown Neuro oriented x3, CN's II-XII intact bilaterally, no focal motor deficits and no sensory deficits noted Sensorium / Orientation: awake and alert Speech: speech normal Psych thought process normal Psych Narrative: Patient appears tremorous, he answers questions appropriately Assessment & Plan Assessment/Plan (1) Alcohol withdrawal: QUALIFIERS: Complication of substance-induced condition: with perceptual disturbance Qualified Code(s): F10.232 - Alcohol dependence with withdrawal with perceptual disturbance PLAN: 1. Acute alcohol withdrawal-continue phenobarbital overdose due to patient sedation with medication #2 chronic alcoholism #3 essential hypertension #4 polysubstance abuse #5 hyponatremia-BMP will be monitored #6 hypokalemia-potassium will be monitored Charges/Coding Visit Charges Inpatient E&M: 41032 Subs Hosp L2
[2021-03-26] MEDS: Escitalopram Oxalate 10 MG Tablet PO (21:17)
[2021-03-26] MEDS: traZODone 100 MG Tablet PO (21:17)
[2021-03-26] MEDS: Atorvastatin Calcium 40 MG Tablet PO (21:17)
[2021-03-27] VITALS (7 sets, daily range): BP systolic 119–170; BP diastolic 71–107; PULSE 71–80; RESP 16–20; TEMP 36.5–36.8; O2SAT 95–100
[2021-03-27] MEDS: hydrOXYzine PAM 25 MG Capsule 50 MG PO ×3 (06:02→18:30)
[2021-03-27] MEDS: Phenobarbital 32.4 MG Tablet PO ×4 (06:03→20:52)
[2021-03-27 07:11] LABS: Absolute Lymphocyte Count 0.84 X10^3/uL (0.83-4.51); Absolute Neutrophil Count 2.6 X10^3/uL (2.0-7.7); Basophil# 0.03 X10^3/uL; Basophil% 0.8 % (0-1); Eosinophil# 0.13 X10^3/uL; Eosinophils% 3.3 % (0-5); Hematocrit 31.3 % (40-54); Lymphocyte # 0.84 X10^3/ul (0.83-4.51); Lymphocyte % 21.4 % (19-41); Mean Corp Hgb Conc 31.9 g/dL (32-36); Mean Corpuscular Hgb 27.1 pg (27.0-32.0); Mean Corpuscular Volume 84.8 fL (80-94); Mean Platelet Vol. 9.7 fl (6.2-12.0); Monocyte# 0.33 X10^3/uL; Monocyte% 8.4 % (0-10); NRBC Flagged by Analyzer 0 % (0-5); Neutrophil # 2.59 X10^3/uL (2.7-7.7); Neutrophil % 65.8 % (47-70); Platelet Count 129 K/mm3 (150-450); RBC Distribution Width CV 19.1 % (11.6-14.6); RBC Distribution Width SD 59.4 fl (35.1-43.9); Red Blood Count 3.69 M/mm3 (4.6-6.2); White Blood Count 3.9 K/mm3 (4.4-11.0)
[2021-03-27 07:34] LABS: Anion Gap 7 (5-15); BUN 12 mg/dL (7-18); BUN/Creat Ratio 14.2 RATIO (10-20); Calcium,Total 8.2 mg/dL (8.5-10.1); Chloride 96 mmol/L (98-107); Creatinine, Serum 0.85 mg/dL (0.70-1.30); EST Glomerular Filtration Rate 99 mL/min (>60); Est Glom Filt Rate - Afr Amer 120 mL/min (>60); Estimated Creatinine Clearance 86.53 ml/min; Glucose 129 mg/dL (74-106); Potassium 3.5 mmol/L (3.5-5.1); Sodium Level 131 mmol/L (136-145)
[2021-03-27] MEDS: Na Biphos/Potassium Phosphate PACKET 1 PACKET PO ×3 (09:58→16:26)
[2021-03-27] MEDS: Folic Acid 1 MG Tablet PO (09:58)
[2021-03-27] MEDS: Thiamine Hydrochloride 100 MG Tablet PO (09:59)
[2021-03-27] MEDS: Metoprolol(XL)Succ 25 MG Tablet PO (09:59)
[2021-03-27] MEDS: Lisinopril 20 MG Tablet PO (09:59)
[2021-03-27] MEDS: Pantoprazole Sodium 40 MG Tablet PO (10:02)
[2021-03-27] MEDS: amLODIPine 5 MG Tablet PO (10:02)
[2021-03-27] MEDS: buPROPion (XL) 300 MG TABLET.XL PO (10:03)
[2021-03-27] MEDS: Acetaminophen 500 MG Tablet PO (16:25)
[2021-03-27] MEDS: LORazepam 1 MG Tablet 2 MG PO (16:29)
--- NOTE | 2021-03-27 18:27 | PCM.PN.HOSP ---
Subjective Subjective Patient was seen and examined today, he does not appear tremorous or anxious at this time. Objective Data Objective Data Vital Signs: Vital Signs Temp Pulse Resp BP Pulse Ox 97.8 F 80 20 H 153/94 H 99 03/27/21 16:22 03/27/21 16:22 03/27/21 16:22 03/27/21 16:22 03/27/21 16:22 Oxygen Flow Rate (L/min) 2 Oxygen Delivery Method Room Air Weight: 76.6 kg Body Mass Index (BMI) 27.2 Intake & Output: Intake and Output for Last 24 Hours 03/25/21 03/26/21 03/27/21 23:59 23:59 23:59 Intake Total 1150 / 1150 115.25 / 115.25 350 / 350 Balance 1150 / 1150 115.25 / 115.25 350 / 350 Lab / Micro Data Result Diagrams: 03/27/21 06:55 03/27/21 06:55 Labs: Laboratory Results - last 24 hr 03/27/21 06:55: WBC 3.9 L, RBC 3.69 L, Hgb 10.0 L, Hct 31.3 L, MCV 84.8, MCH 27.1, MCHC 31.9 L, RDW Std Deviation 59.4 H, RDW Coeff of [place] 19.1 H, Plt Count 129 L, MPV 9.7, Immature Gran % (Auto) 0.300, Neut % (Auto) 65.8, Lymph % (Auto) 21.4, [place] % (Auto) 8.4, Eos % (Auto) 3.3, Baso % (Auto) 0.8, Absolute Neuts (auto) 2.6, Absolute Lymphs (auto) 0.84, Nucleated RBC % 0 03/27/21 06:55: Sodium 131 L, Potassium 3.5, Chloride 96 L, Carbon Dioxide 28.0, Anion Gap 7, BUN 12, Creatinine 0.85, Estim Creat Clear Calc 86.53, Est GFR (MDRD) Af Amer 120, Est GFR (MDRD) Non-Af 99, BUN/Creatinine Ratio 14.2, Glucose 129 H, Calcium 8.2 L Physical Exam Const alert, oriented x3 and no apparent distress General Appearance: cooperative, well kempt and well developed Orientation / Consciousness: awake, oriented to person, oriented to place and oriented to time HEENT normocephalic, head/scalp atraumatic and moist oral mucous membranes Head and Scalp: normocephalic Eyes PERRL, EOMs intact bilaterally and conjunctivae normal Neck nuchal rigidity, supple, no JVD, thyroid normal and no carotid bruits General: trachea midline Resp normal respiratory effort, no retractions, no use of accessory muscles and clear to auscultation bilaterally Auscultation: Negative for rales, rhonchi or wheezes Cardio regular rate, regular rhythm, S1 normal heart sound, S2 normal heart sound, no murmurs, no rub and no gallops GI normal to inspection, nondistended, normoactive bowel sounds, soft to palpation, non-tender and non-distended Extremity no clubbing, cyanosis or edema Skin no rashes or lesions noted General Skin Exam: no breakdown Neuro oriented x3, CN's II-XII intact bilaterally, no focal motor deficits and no sensory deficits noted Sensorium / Orientation: awake and alert Speech: speech normal Psych thought process normal and affect normal Assessment & Plan Assessment/Plan (1) Alcohol withdrawal: QUALIFIERS: Complication of substance-induced condition: with perceptual disturbance Qualified Code(s): F10.232 - Alcohol dependence with withdrawal with perceptual disturbance PLAN: 1. Acute alcohol withdrawal-I will continue to reduce the patient's phenobarbital. He does not show any outward signs of DT. #2 chronic alcoholism #3 essential hypertension #4 polysubstance abuse #5 hyponatremia-BMP will be monitored #6 hypokalemia-potassium will be monitored Charges/Coding Visit Charges Inpatient E&M: 02561 Subs Hosp L2
[2021-03-27] MEDS: traZODone 100 MG Tablet PO (20:52)
[2021-03-27] MEDS: Atorvastatin Calcium 40 MG Tablet PO (20:52)
[2021-03-27] MEDS: Escitalopram Oxalate 10 MG Tablet PO (20:52)
[2021-03-28] VITALS (10 sets, daily range): BP systolic 134–172; BP diastolic 70–101; PULSE 66–90; RESP 18–20; TEMP 36.6–36.8; O2SAT 96–99
[2021-03-28] MEDS: LORazepam 1 MG Tablet 2 MG PO ×2 (01:24→18:13)
[2021-03-28] MEDS: Phenobarbital 32.4 MG Tablet PO ×3 (05:19→21:31)
[2021-03-28] MEDS: Folic Acid 1 MG Tablet PO (08:24)
[2021-03-28] MEDS: Thiamine Hydrochloride 100 MG Tablet PO (08:24)
[2021-03-28] MEDS: buPROPion (XL) 300 MG TABLET.XL PO (11:07)
[2021-03-28] MEDS: Metoprolol(XL)Succ 25 MG Tablet PO (11:07)
[2021-03-28] MEDS: Pantoprazole Sodium 40 MG Tablet PO (11:08)
[2021-03-28] MEDS: amLODIPine 5 MG Tablet PO (11:08)
[2021-03-28] MEDS: Lisinopril 20 MG Tablet PO (11:08)
--- NOTE | 2021-03-28 16:32 | PCM.PN.HOSP ---
Subjective Subjective Patient was seen and examined today, he did not appear anxious or tremorous today. I explained to him that he would probably be discharged tomorrow. Patient told me yesterday he plan to follow-up as an outpatient with 180, he did not plan to do inpatient detox services. Objective Data Objective Data Vital Signs: Vital Signs Temp Pulse Resp BP Pulse Ox 98 F 70 20 H 160/75 H 99 03/28/21 10:00 03/28/21 11:07 03/28/21 10:00 03/28/21 11:07 03/28/21 10:00 Oxygen Flow Rate (L/min) 2 Oxygen Delivery Method Room Air Weight: 76.6 kg Body Mass Index (BMI) 27.2 Intake & Output: Intake and Output for Last 24 Hours 03/26/21 03/27/21 03/28/21 23:59 23:59 23:59 Intake Total 115.25 / 115.25 1100 / 1100 1480 / 1480 Balance 115.25 / 115.25 1100 / 1100 1480 / 1480 Lab / Micro Data Result Diagrams: 03/27/21 06:55 03/27/21 06:55 Physical Exam Const alert, oriented x3 and no apparent distress General Appearance: cooperative, well kempt and well developed Orientation / Consciousness: awake, oriented to person, oriented to place and oriented to time HEENT normocephalic, head/scalp atraumatic and moist oral mucous membranes Head and Scalp: normocephalic Eyes PERRL, EOMs intact bilaterally and conjunctivae normal Neck nuchal rigidity, supple, no JVD, thyroid normal and no carotid bruits General: trachea midline Resp normal respiratory effort and clear to auscultation bilaterally Auscultation: Negative for rales, rhonchi or wheezes Cardio regular rate, regular rhythm, no murmurs, no rub and no gallops GI normal to inspection, nondistended, normoactive bowel sounds, soft to palpation, non-tender and non-distended Extremity no clubbing, cyanosis or edema Skin no rashes or lesions noted General Skin Exam: no breakdown Neuro oriented x3, CN's II-XII intact bilaterally, no focal motor deficits and no sensory deficits noted Sensorium / Orientation: awake and alert Speech: speech normal Psych thought process normal Psych Narrative: Patient has a flat affect Assessment & Plan Assessment/Plan (1) Alcohol withdrawal: QUALIFIERS: Complication of substance-induced condition: with perceptual disturbance Qualified Code(s): F10.232 - Alcohol dependence with withdrawal with perceptual disturbance PLAN: 1. Acute alcohol withdrawal-I will continue to reduce the patient's phenobarbital. He does not show any outward signs of DT's #2 chronic alcoholism #3 essential hypertension #4 polysubstance abuse #5 hyponatremia #6 hypokalemia-resolved #7 severe protein and caloric malnutrition-patient is being seen by nutritional services Charges/Coding Visit Charges Inpatient E&M: 56519 Subs Hosp L2
[2021-03-28] MEDS: Ibuprofen 600 MG Tablet PO (18:14)
[2021-03-28] MEDS: Atorvastatin Calcium 40 MG Tablet PO (21:31)
[2021-03-28] MEDS: traZODone 100 MG Tablet PO (21:31)
[2021-03-28] MEDS: Escitalopram Oxalate 10 MG Tablet PO (21:31)
[2021-03-29 02:46] VITALS: BP 134/76; PULSE 74; RESP 18; TEMP 36.8; O2SAT 98
[2021-03-29] MEDS: Ibuprofen 600 MG Tablet PO (06:46)
[2021-03-29] MEDS: Thiamine Hydrochloride 100 MG Tablet PO (07:48)
[2021-03-29] MEDS: Folic Acid 1 MG Tablet PO (07:48)
[2021-03-29] MEDS: amLODIPine 5 MG Tablet PO (07:48)
[2021-03-29 07:49] VITALS: PULSE 75
[2021-03-29] MEDS: buPROPion (XL) 300 MG TABLET.XL PO (07:49)
[2021-03-29] MEDS: Metoprolol(XL)Succ 25 MG Tablet PO (07:49)
[2021-03-29] MEDS: Pantoprazole Sodium 40 MG Tablet PO (07:49)
[2021-03-29] MEDS: Lisinopril 20 MG Tablet PO (07:50)
[2021-03-29 08:16] VITALS: BP 159/101; PULSE 75; RESP 16; TEMP 36.9; O2SAT 98
[2021-03-29 08:30] VITALS: O2SAT 95
--- NOTE | 2021-03-29 09:28 | ADDICTION ---
This worker met with pt and discussed treatment options again upon discharge. He reports that he will have his stay with him and monitor him. He reports that he may decide to go to residential after his daughters wedding in April.
[2021-03-29] MEDS: Phenobarbital 32.4 MG Tablet PO (09:40)
--- NOTE | 2021-03-29 11:39 | PCM.DC ---
Discharge Instructions Diet Discharge Diet: No restrictions Activity Discharge Activity: Return to Normal Activity Weight Bearing Status: Full weight bearing Follow Up Care Test Results: Test results from this visit will be discussed in further detail at your follow-up appointment, if applicable. Discharge Plan Admission Admit Date/Time: 03/23/21 19:10 Primary Reason for Your Visit: Alcohol detox, alcoholism Attending Provider: Harsha Sandoval Primary Care Provider: Enoch Ramirez Instructions Additional Instructions / Restrictions: Follow-up with [facility] as instructed Discharge Orders/Prescriptions Prescriptions: Continued lisinopril 20 MG tablet 20 mg PO DAILY RF: 0 amlodipine 5 MG tablet 5 mg PO DAILY RF: 0 metoprolol succinate 25 MG tablet extended release 24 hr 25 mg PO DAILY RF: 0 trazodone 100 MG tablet 100 mg PO QHS RF: 0 pantoprazole 40 MG tablet 20 mg PO DAILY RF: 0 bupropion HCl 300 MG tablet extended release 24 hr 300 mg PO DAILY RF: 0 atorvastatin 40 mg tablet 40 mg PO QHS RF: 0 folic acid 1 mg Tablet 1 mg PO DAILY RF: 0 escitalopram oxalate 10 mg Tablet 10 mg PO QHS RF: 0 Referrals / Follow Up: Enoch Ramirez MD [Primary Care Provider] - Within 2 Weeks Disposition Disposition (needs filled in before D/C Order can be placed): Home, Self Care
--- NOTE | 2021-04-08 15:47 | DS.PCM_ITS ---
Providers Date of Admission: 03/23/21 Primary Care Physician: Dr. Enoch Ramirez MD Reason For Visit: DESIRE FOR ALCOHOL DETOXIFICATION Diagnosis Discharge Diagnosis (1) Alcohol withdrawal: Status: Resolved Code(s): F10.239 - Alcohol dependence with withdrawal, unspecified Qualifiers: Complication of substance-induced condition: with perceptual disturbance Qualified Code(s): F10.232 - Alcohol dependence with withdrawal with perceptual disturbance Plan: 1. Acute alcohol withdrawal #2 chronic alcoholism #3 essential hypertension #4 polysubstance abuse #5 hyponatremia #6 hypokalemia #7 severe protein and caloric malnutrition Medications at Discharge Home Medications amlodipine 5 mg PO DAILY 10/15/16 lisinopril 20 mg PO DAILY 10/15/16 metoprolol succinate 25 mg PO DAILY 10/15/16 bupropion HCl 300 mg PO DAILY 07/12/18 pantoprazole 20 mg PO DAILY 07/12/18 trazodone 100 mg PO QHS 07/12/18 atorvastatin 40 mg PO QHS 03/01/21 escitalopram oxalate 10 mg PO QHS 03/01/21 folic acid 1 mg PO DAILY 03/01/21 aripiprazole 2 mg PO DAILY 04/06/21 Hospital Course Operations None Procedures None Summary of Care Provided Minutes Spent on Discharge: 30 Hospital Course: This 56-year-old white male was seen in the emergency room at [facility] requesting services for alcohol detoxification. Patient has been through detox programs in the past but had failed these programs. Patient was admitted to [place] [address], orders were entered using the alc ohol detox order set, patient had no severe withdrawal symptoms during his hospitalization and talked with addiction social worker health services for follow-up plans as an outpatient to do an intensive outpatient program for alcohol detox. Patient did not want to do an inpatient detox program. On 03/29/2021, patient was seen and examined: On examination he appeared in good health and spirits. Vital signs as documented. Skin warm and dry and without overt rashes. Neck without JVD, neck was supple, trachea midline, thyroid was normal. Lungs clear bilaterally, normal air movement was noted. Heart exam notable for regular rhythm, normal sounds and absence of murmurs, rubs or gallops. Abdomen unremarkable and without evidence of organomegaly, masses, or abdominal aortic enlargement. Bowel sounds are present, abdomen is not distended. Extremities nonedematous, no cyanosis was noted, no clubbing was noted. Neuro: Cranial nerves II through XII are grossly intact, no focal motor deficits were noted, sensation to light touch and pinprick intact, motor exam 5/5 throughout. Psych: Patient is alert and oriented x3, he does not appear anxious or depressed, he does not appear agitated. On 03/29/2021, patient was seen and examined and felt to be in stable condition for discharge home. Weight / BMI Weight Weight: 76.6 kg Body Mass Index (BMI) 27.2 ABG / Lab / Microbiology Data Result Diagrams: 03/27/21 06:55 03/27/21 06:55 D/C Instructions Discharge Diet: No restrictions Weight Bearing Status: Full weight bearing Meaningful Use Info Meaningful Use Diagnoses (Choose all that apply): None applicable Discharge Plan Admission Admit Date/Time: 03/23/21 19:10 Primary Reason for Your Visit: Alcohol detox, alcoholism Attending Provider: Harsha Sandoval Primary Care Provider: Enoch Ramirez Instructions Additional Instructions / Restrictions: Follow-up with 180 as instructed Discharge Orders/Prescriptions Prescriptions: Continued lisinopril 20 MG tablet 20 mg PO DAILY RF: 0 amlodipine 5 MG tablet 5 mg PO DAILY RF: 0 metoprolol succinate 25 MG tablet extended release 24 hr 25 mg PO DAILY RF: 0 trazodone 100 MG tablet 100 mg PO QHS RF: 0 pantoprazole 40 MG tablet 20 mg PO DAILY RF: 0 bupropion HCl 300 MG tablet extended release 24 hr 300 mg PO DAILY RF: 0 atorvastatin 40 mg tablet 40 mg PO QHS RF: 0 folic acid 1 mg Tablet 1 mg PO DAILY RF: 0 escitalopram oxalate 10 mg Tablet 10 mg PO QHS RF: 0 No Action aripiprazole 2 mg tablet 2 mg PO DAILY RF: 0 Referrals / Follow Up: Enoch Ramirez MD [Primary Care Provider] - Within 2 Weeks Disposition Disposition (needs filled in before D/C Order can be placed): Home, Self Care Charges/Coding Visit Charges Inpatient E&M: 41702 Disch Hosp
== END 2021-03-29 13:00 | disposition home or self-care (01) | DRG 896 ==
LOC: ED 19:04 → MS3 19:16
PROVIDERS: Internal Medicine; Admitting Provider Hospitalist; Emergency Provider Emergency Medicine; PCP Family Medicine; Visit Provider Internal Medicine
DX: F10.232 Alcohol dependence with withdrawal with perceptual disturbance (principal); E43 Unspecified severe protein-calorie malnutrition; E87.1 Hypo-osmolality and hyponatremia; Y90.9 Presence of alcohol in blood, level not specified; E83.39 Other disorders of phosphorus metabolism; D50.9 Iron deficiency anemia, unspecified; Z68.27 Body mass index [BMI] 27.0-27.9, adult; F19.10 Other psychoactive substance abuse, uncomplicated; I10 Essential (primary) hypertension; K21.9 Gastro-esophageal reflux disease without esophagitis; F31.9 Bipolar disorder, unspecified; F41.9 Anxiety disorder, unspecified; G47.33 Obstructive sleep apnea (adult) (pediatric); Z87.19 Personal history of other diseases of the digestive system; Z79.899 Other long term (current) drug therapy
CPT/HCPCS: 36415; 80048; 80053; 80184; 80307; 82077; 82550; 83735; 84100; 84443; 85025; 85610; 99285; 99406; J7050; J7120; A4216

== ENCOUNTER 2021-04-05 23:41 | Inpatient (IN) | payer OTHER, MEDICAID, SELFPAY ==
[2021-04-05 23:42] VITALS: BP 148/97; PULSE 109; PULSE 111; RESP 18; TEMP 36.8; O2SAT 97; BMI 29.3
--- NOTE | 2021-04-05 23:55 | EKG12_ITS ---
Test Reason : INTOX Blood Pressure : / mmHG Vent. Rate : 105 BPM Atrial Rate : 105 BPM P-R Int : 140 ms QRS Dur : 086 ms QT Int : 366 ms P-R-T Axes : 053 -09 030 degrees QTc Int : 483 ms Sinus tachycardia Otherwise normal ECG Confirmed by JOSE DUDLEY, TJ ([id number]), editorial cartoonist JESÚS BRENNAN ([id number]) on 04/07/2021 1:02:04 PM Referred By: AIDAN Confirmed By:TJ GARCIA MD
--- NOTE | 2021-04-05 23:56 | EX.ED.DYSGE1 ---
HPI History of Present Illness Chief Complaint: ETOH Intox Detail of Chief Complaint: Alcohol withdrawal, fall Informant: patient Onset/Context/Timing Onset: Today Current Severity: Moderate Maximum Severity: Moderate Narrative Narrative: Patient presents via EMS after he was seen falling and bystanders called EMS. Patient states that he is in alcohol withdrawal. He was recently admitted to the hospital for EtOH detox. He states he started drinking again at the time of discharge. He has been drinking 1-2 1/5ths of vodka daily. He also admits to marijuana use. Patient states he feels very shaky and anxious. He has been through DTs previously. He is unsure if he had a true seizure from alcohol withdrawal. [facility] Medical History Acute alcoholic pancreatitis Alcohol abuse Alcohol withdrawal Alcoholic hepatitis Anemia Anxiety Bicytopenia Bipolar disorder Depression Essential (primary) hypertension ETOH abuse GERD (gastroesophageal reflux disease) Hypokalemia Hypomagnesemia Insomnia Leukopenia Non-smoker GERMANIA (obstructive sleep apnea) GERMANIA (obstructive sleep apnea) Pancreatitis Sleep apnea Substance abuse Home Medications amlodipine 5 mg PO DAILY 10/15/16 [History Last Taken 04/05/21] lisinopril 20 mg PO DAILY 10/15/16 [History Last Taken 04/05/21] metoprolol succinate 25 mg PO DAILY 10/15/16 [History Last Taken 04/05/21] bupropion HCl 300 mg PO DAILY 07/12/18 [History Last Taken 04/05/21] pantoprazole 20 mg PO DAILY 07/12/18 [History Last Taken 04/05/21] trazodone 100 mg PO QHS 07/12/18 [History Last Taken 04/04/21] atorvastatin 40 mg PO QHS 03/01/21 [History Last Taken 04/04/21] escitalopram oxalate 10 mg PO QHS 03/01/21 [History Last Taken 04/04/21] folic acid 1 mg PO DAILY 03/01/21 [History Last Taken 04/05/21] aripiprazole 2 mg PO DAILY 04/06/21 [History Last Taken Unknown] Allergy/AdvReac Type Severity Reaction Status Date / Time No Known Allergies Allergy Verified 04/05/21 23:47 Family History Mother Cancer Father PD (Parkinson's disease) Social History current occupational status: unemployed Smoking Status: Never smoker alcohol intake: former year quit: 2017 substance use type: does not use ROS ROS ED Constitutional Constitutional ED: Denies chills or fever(s) Eyes Eyes: Denies change in vision ENT ENT ED: Denies sore throat Cardiovascular Cardiovascular: Denies chest pain Respiratory/Chest Respiratory/Chest: Denies cough or dyspnea Gastrointestinal Gastrointestinal: Reports nausea; Denies abdominal pain, diarrhea or vomiting Genitourinary Genitourinary ED: Denies dysuria Musculoskeletal Musculoskeletal: Denies back pain Integumentary Denies rash Neurologic Neurologic: Reports weakness; Denies headache(s) Psychiatric Psychiatric: Reports anxiety and suicidal thoughts; Denies depression Allergic/Immunologic Allergic/Immunologic ED: Denies urticaria EXAM Physical Exam Const Vital Signs: 04/05/21 23:42 04/06/21 00:42 Temperature 98.2 F Temperature Source Oral Pulse Rate 109 H 107 H Respiratory Rate 18 17 Blood Pressure 148/97 H 144/105 H Blood Pressure Mean 114 118 Blood Pressure Source Monitor Pulse Ox 97 94 Oxygen Delivery Method Room Air Room Air Positive well nourished and well developed General Appearance ED: well developed HEENT Reports moist mucous membranes Negative for trauma Eyes PERRL and EOMs intact bilaterally Neck supple Chest Wall inspection of chest normal and palpation of chest normal Resp normal respiratory effort and clear to auscultation bilaterally Cardio Rate: tachycardic GI normal to inspection, nondistended, normoactive bowel sounds and non-tender Auscultation: hypoactive bowel sounds Palpation: soft Extremity normal to inspection Neuro oriented x3 Neuro Narrative: Tremor noted to the bilateral hands. Sensorium / Orientation: alert Psych Mood & Affect: depressed, anxious and tearful MDM MDM MDM Narrative Medical decision making narrative: Patient is placed on air sampling and monitoring. EKG, lab work obtained. Patient is given 1 mg of IV Ativan to help with withdrawal symptoms. Lab Data Labs: Laboratory Results - last 24 hr 04/06/21 04/06/21 04/06/21 00:20 00:20 00:20 WBC 4.4 RBC 3.99 L Hgb 10.9 L Hct 33.3 L MCV 83.5 MCH 27.3 MCHC 32.7 RDW Std Deviation 62.5 H RDW Coeff of [place] 20.5 H Plt Count 330 MPV 8.2 Immature Gran % (Auto) 0.200 Neut % (Auto) 64.2 Lymph % (Auto) 24.5 [place] % (Auto) 9.2 Eos % (Auto) 0.5 Baso % (Auto) 1.4 H Absolute Neuts (auto) 2.8 Absolute Lymphs (auto) 1.07 Nucleated RBC % 0 Differential Comment SCANNED Anisocytosis 1+ Microcytosis 1+ PT 14.1 INR 1.2 APTT 27.5 Sodium 143 Potassium 3.6 Chloride 109 H Carbon Dioxide 22.0 Anion Gap 12 BUN 10 Creatinine 0.64 L Estim Creat Clear Calc 114.92 Est GFR (MDRD) Af Amer 165 Est GFR (MDRD) Non-Af 136 BUN/Creatinine Ratio 15.5 Glucose 93 Calcium 8.1 L Total Bilirubin 0.20 Direct Bilirubin 0.13 AST 80 H ALT 95 H Alkaline Phosphatase 103 Total Protein 7.3 Albumin 3.3 Globulin 4.0 Lipase 264 Ethyl Alcohol 04/06/21 00:20 WBC RBC Hgb Hct MCV MCH MCHC RDW Std Deviation RDW Coeff of [place] Plt Count MPV Immature Gran % (Auto) Neut % (Auto) Lymph % (Auto) [place] % (Auto) Eos % (Auto) Baso % (Auto) Absolute Neuts (auto) Absolute Lymphs (auto) Nucleated RBC % Differential Comment Anisocytosis Microcytosis PT INR APTT Sodium Potassium Chloride Carbon Dioxide Anion Gap BUN Creatinine Estim Creat Clear Calc Est GFR (MDRD) Af Amer Est GFR (MDRD) Non-Af BUN/Creatinine Ratio Glucose Calcium Total Bilirubin Direct Bilirubin AST ALT Alkaline Phosphatase Total Protein Albumin Globulin Lipase Ethyl Alcohol 311.0 H* EKG Initial EKG: Attestation: I personally reviewed and interpreted this EKG as follows: Interpretation: Sinus Tachycardia (Sinus tach at 105. No acute ischemia.) Treatment and Re-Evaluation Comments:: Although the patient was here for alcohol detox, he is currently presenting with symptoms of withdrawal. Patient is given IV Ativan. Lab work is reviewed and largely unremarkable. Alcohol level is 311. Patient admitted to hospital for EtOH withdrawal. Discharge Plan Dx/Rx/DC Orders Clinical Impression: Alcohol withdrawal Disposition Disposition: Acute Care Hospital [facility] Discharge Date/Time: 04/06/21 02:00
[2021-04-06] VITALS (8 sets, daily range): BP systolic 144–165; BP diastolic 85–105; PULSE 87–107; RESP 16–23; TEMP 36.6–37.2; O2SAT 94–99; BMI 27.8
[2021-04-06 00:32] LABS: Absolute Lymphocyte Count 1.07 X10^3/uL (0.83-4.51); Absolute Neutrophil Count 2.8 X10^3/uL (2.0-7.7); Basophil# 0.06 X10^3/uL; Basophil% 1.4 % (0-1); Eosinophil# 0.02 X10^3/uL; Eosinophils% 0.5 % (0-5); Hematocrit 33.3 % (40-54); Hemoglobin 10.9 g/dL (13.0-16.5); Lymphocyte # 1.07 X10^3/ul (0.83-4.51); Lymphocyte % 24.5 % (19-41); Mean Corp Hgb Conc 32.7 g/dL (32-36); Mean Corpuscular Hgb 27.3 pg (27.0-32.0); Mean Corpuscular Volume 83.5 fL (80-94); Mean Platelet Vol. 8.2 fl (6.2-12.0); Monocyte% 9.2 % (0-10); NRBC Flagged by Analyzer 0 % (0-5); Neutrophil % 64.2 % (47-70); POSITIVE MORPHOLOGY YES; Platelet Count 330 K/mm3 (150-450); RBC Distribution Width CV 20.5 % (11.6-14.6); RBC Distribution Width SD 62.5 fl (35.1-43.9); Red Blood Count 3.99 M/mm3 (4.6-6.2); White Blood Count 4.4 K/mm3 (4.4-11.0)
[2021-04-06 00:35] LABS: Differential Indicated SCAN CRITERIA MET
[2021-04-06] MEDS: 0.9% Normal Saline 1,000 ML 150 ML IV (00:36)
[2021-04-06] MEDS: LORazepam 2 MG/ML Syringe 1 MG IV (00:36)
[2021-04-06 00:43] LABS: International Normalized Ratio 1.2; Partial Thromboplast Time 27.5 Seconds (24.1-36.2); Prothrombin Time (Protime)PT. 14.1 SECONDS (11.7-14.9)
[2021-04-06 00:51] LABS: AST(SGOT) 80 U/L (15-37); Alanine Aminotransfer ALT/SGPT 95 U/L (16-61); Albumin, Serum 3.3 g/dL (3.2-5.0); Alkaline Phosphatase 103 U/L (45-117); Anion Gap 12 (5-15); BUN 10 mg/dL (7-18); BUN/Creat Ratio 15.5 RATIO (10-20); Bilirubin, Direct 0.13 mg/dL (0.00-0.30); Calcium,Total 8.1 mg/dL (8.5-10.1); Chloride 109 mmol/L (98-107); Creatinine, Serum 0.64 mg/dL (0.70-1.30); EST Glomerular Filtration Rate 136 mL/min (>60); Est Glom Filt Rate - Afr Amer 165 mL/min (>60); Estimated Creatinine Clearance 114.92 ml/min; Glucose 93 mg/dL (74-106); Lipase 264 U/L (73-393); Potassium 3.6 mmol/L (3.5-5.1); Protein, Total 7.3 g/dL (6.4-8.2); Sodium Level 143 mmol/L (136-145)
--- NOTE | 2021-04-06 00:56 | PCM.HP.STD ---
Documented by User: REMI Winn 04/06/21 01:09 HPI - General General Date of Admission: 04/06/21 Date of Service: 04/06/21 Chief Complaint: Alcohol intoxication HPI Narrative CHERELLE STEEN, is a 56 M who presents via EMS following a fall due to alcohol intoxication. Patient states that he recently went through alcohol detoxification but immediately started drinking again upon discharge. Patient states that he drinks 1-2 5ths of vodka a day. Patient also reports daily marijuana use. Patient denies other drug use. Patient reports feeling shaky and anxious and a history of going through DTs. Patient states his last drink was at 5 PM 04/05/2021. COUNT INCLUDES THE [facility] Medical History Acute alcoholic pancreatitis Alcohol abuse Alcohol withdrawal Alcoholic hepatitis Anemia Anxiety Bicytopenia Bipolar disorder Depression Essential (primary) hypertension ETOH abuse GERD (gastroesophageal reflux disease) Hypokalemia Hypomagnesemia Insomnia Leukopenia Non-smoker GERMANIA (obstructive sleep apnea) GERMANIA (obstructive sleep apnea) Pancreatitis Sleep apnea Substance abuse Home Medications amlodipine 5 mg PO DAILY 10/15/16 [History Last Taken 03/01/21] lisinopril 20 mg PO DAILY 10/15/16 [History Last Taken 03/01/21] metoprolol succinate 25 mg PO DAILY 10/15/16 [History Last Taken 03/01/21] bupropion HCl 300 mg PO DAILY 07/12/18 [History Last Taken 03/01/21] pantoprazole 20 mg PO DAILY 07/12/18 [History Last Taken 03/01/21] trazodone 100 mg PO QHS 07/12/18 [History Last Taken 02/28/21] atorvastatin 40 mg PO QHS 03/01/21 [History Last Taken 02/28/21] escitalopram oxalate 10 mg PO QHS 03/01/21 [History Last Taken 02/28/21] folic acid 1 mg PO DAILY 03/01/21 [History Last Taken 03/01/21] aripiprazole 2 mg DAILY 04/06/21 [History Last Taken Unknown] Allergy/AdvReac Type Severity Reaction Status Date / Time No Known Allergies Allergy Verified 04/05/21 23:47 Family History Mother Cancer Father PD (Parkinson's disease) Social History current occupational status: unemployed Smoking Status: Never smoker alcohol intake: former year quit: 2017 substance use type: does not use ROS Constitutional Constitutional: Denies anorexia, chills, fatigue, fever(s) or malaise Cardiovascular Cardiovascular: Denies chest pain, edema, palpitations or syncope Respiratory/Chest Respiratory/Chest: Denies cough, shortness of breath at rest or shortness of breath with exertion Gastrointestinal Gastrointestinal: Denies abdominal pain, constipation, diarrhea, nausea or vomiting Genitourinary Genitourinary: Denies dysuria Musculoskeletal Musculoskeletal: Denies back pain, extremity pain, joint pain or joint stiffness Integumentary Integumentary: Denies dry skin Neurologic Neurologic: Reports lack of coordination, restless legs and tremor(s); Denies abnormal gait Psychiatric Psychiatric: Reports anxiety and depression Endocrine Endocrinology: Denies change in body appearance Hematologic/Lymphatic Hematologic/Lymphatic: Denies anemia, easy bleeding or easy bruising Vital Signs Vital Signs Vital Signs: 04/05/21 23:42 04/06/21 00:42 Temperature 98.2 F Temperature Source Oral Pulse Rate 109 H 107 H Respiratory Rate 18 17 Blood Pressure 148/97 H 144/105 H Blood Pressure Mean 114 118 Blood Pressure Source Monitor Pulse Ox 97 94 Oxygen Delivery Method Room Air Room Air Weight Weight: 181 lb 14.102 oz Body Mass Index (BMI) 29.3 Physical Exam Const alert, oriented x3 and no apparent distress General Appearance: cooperative HEENT normocephalic and head/scalp atraumatic Eyes conjunctivae normal and no scleral icterus Neck supple General: trachea midline Lymph Lymphatic: no lymphadenopathy noted Resp normal respiratory effort, normal air movement and clear to auscultation bilaterally Cardio regular rhythm, S1 normal heart sound, S2 normal heart sound and peripheral pulses 2+ throughout Rate: tachycardic GI normal to inspection, nondistended, normoactive bowel sounds, soft to palpation and non-tender Extremity normal capillary refill and no clubbing, cyanosis or edema General Extremity: no tenderness to palpation of joints or extremities Skin General Skin Exam: no breakdown and turgor normal Lesions: no lesions Rashes: no rashes Neuro oriented x3, moves all extremities and no sensory deficits noted Motor Exam: muscle tone normal throughout and tremor Positive for bilateral upper extremity Psych cooperative and affect normal Mood & Affect: anxious Results Lab / Micro Data Result Diagrams: 04/06/21 00:20 04/06/21 00:20 Labs: Laboratory Results - last 24 hr 04/06/21 00:20: WBC 4.4, RBC 3.99 L, Hgb 10.9 L, Hct 33.3 L, MCV 83.5, MCH 27.3, MCHC 32.7, RDW Std Deviation 62.5 H, RDW Coeff of [place] 20.5 H, Plt Count 330, MPV 8.2, Immature Gran % (Auto) 0.200, Neut % (Auto) 64.2, Lymph % (Auto) 24.5, [place] % (Auto) 9.2, Eos % (Auto) 0.5, Baso % (Auto) 1.4 H, Absolute Neuts (auto) 2.8, Absolute Lymphs (auto) 1.07, Nucleated RBC % 0 04/06/21 00:20: PT 14.1, INR 1.2, APTT 27.5 04/06/21 00:20: Sodium 143, Potassium 3.6, Chloride 109 H, Carbon Dioxide 22.0, Anion Gap 12, BUN 10, Creatinine 0.64 L, Estim Creat Clear Calc 114.92, Est GFR (MDRD) Af Amer 165, Est GFR (MDRD) Non-Af 136, BUN/Creatinine Ratio 15.5, Glucose 93, Calcium 8.1 L, Total Bilirubin 0.20, Direct Bilirubin 0.13, AST 80 H, ALT 95 H, Alkaline Phosphatase 103, Total Protein 7.3, Albumin 3.3, Globulin 4.0, Lipase 264 Assessment & Plan Assessment/Plan (1) Alcohol withdrawal: QUALIFIERS: Complication of substance-induced condition: uncomplicated Qualified Code(s): F10.230 - Alcohol dependence with withdrawal, uncomplicated PLAN: 1. Alcoholic withdrawal with desire for detoxification -Admit to MedSurg -Patient reports adverse symptoms with phenobarbital in the past, Ativan taper ordered along with supportive medications -CBC and BMP in a.m., labs obtained and reviewed, within normal limits for patient. -Case management consulted for coordination with 180 for outpatient follow-up -Vital signs per protocol -Alcohol level and urine drug screen pending We will continue all medications related to patient chronic conditions including depression, hypertension, hyperlipidemia with the exception of Wellbutrin which is contraindicated in alcohol withdrawal. DVT prophylaxis-encourage ambulation, no pharmacological prophylaxis indicated This patient was seen by ERMI Winn under the supervision of Dr. Castro. Documented by User: Dr. Attila Castro MD 04/06/21 01:22 COUNT INCLUDES THE [facility] Medical History Acute alcoholic pancreatitis Alcohol abuse Alcohol withdrawal Alcoholic hepatitis Anemia Anxiety Bicytopenia Bipolar disorder Depression Essential (primary) hypertension ETOH abuse GERD (gastroesophageal reflux disease) Hypokalemia Hypomagnesemia Insomnia Leukopenia Non-smoker GERMANIA (obstructive sleep apnea) GERMANIA (obstructive sleep apnea) Pancreatitis Sleep apnea Substance abuse Home Medications amlodipine 5 mg PO DAILY 10/15/16 [History Last Taken 03/01/21] lisinopril 20 mg PO DAILY 10/15/16 [History Last Taken 03/01/21] metoprolol succinate 25 mg PO DAILY 10/15/16 [History Last Taken 03/01/21] bupropion HCl 300 mg PO DAILY 07/12/18 [History Last Taken 03/01/21] pantoprazole 20 mg PO DAILY 07/12/18 [History Last Taken 03/01/21] trazodone 100 mg PO QHS 07/12/18 [History Last Taken 02/28/21] atorvastatin 40 mg PO QHS 03/01/21 [History Last Taken 02/28/21] escitalopram oxalate 10 mg PO QHS 03/01/21 [History Last Taken 02/28/21] folic acid 1 mg PO DAILY 03/01/21 [History Last Taken 03/01/21] aripiprazole 2 mg DAILY 04/06/21 [History Last Taken Unknown] Allergy/AdvReac Type Severity Reaction Status Date / Time No Known Allergies Allergy Verified 04/05/21 23:47 Family History Mother Cancer Father PD (Parkinson's disease) Social History current occupational status: unemployed Smoking Status: Never smoker alcohol intake: former year quit: 2017 substance use type: does not use Results Lab / Micro Data Result Diagrams: 04/06/21 00:20 04/06/21 00:20 Charges/Coding Addendum Addendum: Patient was seen and examined independently. I agree with assessment and plan by REMI Winn In summary patient is a 56-year-old male with a significant history of alcohol abuse who presented to the emergency department with help with detoxification. Reportedly patient has been drinking alcohol for about 40 years. He drinks 1-2 of a fifth of diluted vodka daily. Last time he drank was few hours before presenting. Patient was at a hospital for alcohol detoxification and was discharged on 03/29/2021. He reports that he had difficulty coming off from phenobarbital taper and does not want to be detoxed with phenobarbital. Patient is having some withdrawal symptoms of tremors and diaphoresis. Physical exam: General: Well-nourished, well-developed. Head: Normocephalic, atraumatic, no tenderness Eyes: PERRLA, EOMI ENT, no trauma, moist mucous membranes, no rhinorrhea Neck: Nontender, full range of motion, no spinal tenderness, deformities, step-off CVS: Regular rate and rhythm. S1-S2 present. No murmur, gallop or rub. Respiratory : clear to auscultation bilaterally, chest wall nontender, no wheezing Abdomen: Soft, nontender, nondistended, normal bowel sounds, no masses : Deferred Back: Nontender, no CVA tenderness, no midline spinal tenderness, deformities, step-offs Extremities: Nontender full range of motion, no trauma Skin: Normal color, no trauma, abrasions Neuro: Alert, oriented, cranial nerves II through XII grossly intact. Patient with tremors. Psychiatry: Normal mood. Normal affect. Not depressed. Not anxious. Alcohol dependence and desire for detoxification Patient be started on ativan and other adjunctive medications: Gabapentin as needed; dicyclomine as needed; Vistaril as needed; Imodium as needed; trazodone as needed; Zofran as needed; scheduled thiamine; and schedule folic acid. Monitor CIWA score Hypertension Blood pressure is not within goal Home blood pressure medication continued. Trend blood pressure and adjust blood pressure medications. DVT prophylaxis Low risk Encourage to ambulate
--- NOTE | 2021-04-06 01:10 | ED.RN ---
Symone notified of patients status in the ED and admission to the hospital with patients permission.
[2021-04-06 01:11] LABS: Anisocytosis 1+; Differential Comment SCANNED; Microcytosis 1+
[2021-04-06] MEDS: LORazepam 1 MG Tablet PO ×5 (03:00→19:07)
--- NOTE | 2021-04-06 05:26 | PCS.PANDOC ---
PANDEMIC DOCUMENTATION INITIATED: Date: 02/22/2021 Time: 190
[2021-04-06 08:27] LABS: Absolute Lymphocyte Count 1.61 X10^3/uL (0.83-4.51); Basophil# 0.05 X10^3/uL; Eosinophil# 0.03 X10^3/uL; Eosinophils% 0.6 % (0-5); Hemoglobin 10.7 g/dL (13.0-16.5); Lymphocyte # 1.61 X10^3/ul (0.83-4.51); Lymphocyte % 31.1 % (19-41); Mean Corp Hgb Conc 32.4 g/dL (32-36); Mean Corpuscular Hgb 27.4 pg (27.0-32.0); Mean Corpuscular Volume 84.4 fL (80-94); Mean Platelet Vol. 8.2 fl (6.2-12.0); Monocyte# 0.46 X10^3/uL; Monocyte% 8.9 % (0-10); NRBC Flagged by Analyzer 0 % (0-5); Neutrophil # 3.02 X10^3/uL (2.7-7.7); Neutrophil % 58.2 % (47-70); POSITIVE MORPHOLOGY YES; Platelet Count 309 K/mm3 (150-450); RBC Distribution Width CV 20.5 % (11.6-14.6); RBC Distribution Width SD 62.7 fl (35.1-43.9); Red Blood Count 3.91 M/mm3 (4.6-6.2); White Blood Count 5.2 K/mm3 (4.4-11.0)
[2021-04-06 08:29] LABS: Differential Indicated SCAN CRITERIA MET
[2021-04-06 08:48] LABS: Anion Gap 15 (5-15); BUN 9 mg/dL (7-18); BUN/Creat Ratio 16.6 RATIO (10-20); Calcium,Total 7.9 mg/dL (8.5-10.1); Chloride 101 mmol/L (98-107); Creatinine, Serum 0.54 mg/dL (0.70-1.30); EST Glomerular Filtration Rate 166 mL/min (>60); Est Glom Filt Rate - Afr Amer 200 mL/min (>60); Glucose 67 mg/dL (74-106); Potassium 3.6 mmol/L (3.5-5.1); Sodium Level 140 mmol/L (136-145)
[2021-04-06 09:06] LABS: Anisocytosis 1+; Hypochromasia 1+
[2021-04-06] MEDS: Lisinopril 20 MG Tablet PO (09:42)
[2021-04-06] MEDS: Metoprolol(XL)Succ 25 MG Tablet PO (09:42)
[2021-04-06] MEDS: Folic Acid 1 MG Tablet PO (09:42)
[2021-04-06] MEDS: Thiamine Hydrochloride 100 MG Tablet PO (09:42)
[2021-04-06] MEDS: amLODIPine 5 MG Tablet PO (09:42)
[2021-04-06] MEDS: Pantoprazole Sodium 20 MG Tablet PO (09:42)
[2021-04-06] MEDS: Ondansetron 8 MG Tablet PO (09:44)
[2021-04-06] MEDS: Gabapentin 300 MG Capsule PO (09:44)
--- NOTE | 2021-04-06 11:12 | ADDICTION ---
This life underwriter met with PT to conduct ASAM, MSE, AUDIT assessments and to plan for d/c. PT A+Ox4 and participated actively. All assessments completed, faxed to [facility] and placed in PT's chart. As of today, PT plans to f/u with individual counselor at [facility] for follow-up counseling services. This worker is encouraging residential treatment due to PT repeated hx of relapse and detox. PT did not indicate a need for transportation post d/c from [facility].
--- NOTE | 2021-04-06 12:15 | PCM.HOSP.N ---
Hospitalist Note Mr. Mcclain is a 56-year-old white male who presented to the emergency department at [facility] on 04/06/2021 with request for alcohol detox. This is his third such admission since the end of February of this year. He is currently on a phenobarb taper. I did ask him why he feels like he keeps relapsing and he states he stopped taking his Abilify for his bipolar disorder in the spring and feels like this is contributing. I did confirm with pharmacy that he was on Abilify 2 mg daily and this was restarted. We will continue supportive medications and have 180 see the patient. He is clinically stable at this time.
[2021-04-06] MEDS: 0.9% Saline Lock 10 ML Syringe IV ×2 (13:39→22:34)
[2021-04-06] MEDS: LORazepam 2 MG/ML Syringe IV ×2 (13:39→22:25)
[2021-04-06] MEDS: ARIPiprazole 2 MG Tablet PO (16:05)
[2021-04-06] MEDS: Atorvastatin Calcium 40 MG Tablet PO (22:34)
[2021-04-06] MEDS: Escitalopram Oxalate 10 MG Tablet PO (22:34)
[2021-04-06] MEDS: traZODone 100 MG Tablet PO (22:40)
--- NOTE | 2021-04-06 22:40 | NURSING ---
Continues to have tremors, trazodone given. pt is awake and talking.
[2021-04-07] MEDS: Ondansetron 8 MG Tablet PO (00:06)
[2021-04-07] MEDS: LORazepam 1 MG Tablet PO ×3 (00:06→06:44)
[2021-04-07] MEDS: hydrOXYzine PAM 25 MG Capsule 50 MG PO (00:07)
[2021-04-07 00:26] VITALS: BP 142/91; PULSE 95; RESP 18; TEMP 36.9; O2SAT 97
[2021-04-07 01:21] LABS: Amphetamine Urine VISTA NEGATIVE (<1000 ng/mL); Barbiturate Urine VISTA POSITIVE (< 200 ng/mL); Benzodiazepine Urine VISTA NEGATIVE (< 200 ng/mL); Cocaine Urine VISTA NEGATIVE (< 300 ng/mL); Ecstacy Urine VISTA POSITIVE (< 500 ng/mL); Methadone Urine VISTA NEGATIVE (< 300 ng/mL); PCP Urine VISTA NEGATIVE (< 25 ng/mL); THC Urine VISTA POSITIVE (< 50 ng/mL); Vista UDS pH Range 6
[2021-04-07] MEDS: Gabapentin 300 MG Capsule PO (03:23)
[2021-04-07 03:31] VITALS: BP 142/97; PULSE 92; RESP 16; TEMP 37.1; O2SAT 95
[2021-04-07] MEDS: Acetaminophen 325 MG Tablet 650 MG PO (05:07)
[2021-04-07 07:07] VITALS: O2SAT 95
[2021-04-07 07:32] LABS: Absolute Lymphocyte Count 1.29 X10^3/uL (0.83-4.51); Basophil# 0.06 X10^3/uL; Eosinophil# 0.03 X10^3/uL; Eosinophils% 0.5 % (0-5); Hematocrit 32.9 % (40-54); Hemoglobin 11.3 g/dL (13.0-16.5); Lymphocyte # 1.29 X10^3/ul (0.83-4.51); Lymphocyte % 22.1 % (19-41); Mean Corp Hgb Conc 34.3 g/dL (32-36); Mean Corpuscular Hgb 28.5 pg (27.0-32.0); Mean Corpuscular Volume 82.9 fL (80-94); Mean Platelet Vol. 8.9 fl (6.2-12.0); Monocyte# 0.45 X10^3/uL; Monocyte% 7.7 % (0-10); NRBC Flagged by Analyzer 0 % (0-5); Neutrophil # 4.01 X10^3/uL (2.7-7.7); Neutrophil % 68.5 % (47-70); Platelet Count 344 K/mm3 (150-450); RBC Distribution Width CV 19.8 % (11.6-14.6); RBC Distribution Width SD 59.7 fl (35.1-43.9); Red Blood Count 3.97 M/mm3 (4.6-6.2); White Blood Count 5.9 K/mm3 (4.4-11.0)
[2021-04-07 07:47] VITALS: BP 144/88; PULSE 89; RESP 16; TEMP 36.9; O2SAT 96
[2021-04-07 07:54] VITALS: PULSE 89
[2021-04-07] MEDS: Metoprolol(XL)Succ 25 MG Tablet PO (07:54)
[2021-04-07] MEDS: Lisinopril 20 MG Tablet PO (07:54)
[2021-04-07] MEDS: Pantoprazole Sodium 20 MG Tablet PO (07:54)
[2021-04-07] MEDS: ARIPiprazole 2 MG Tablet PO (07:54)
[2021-04-07] MEDS: amLODIPine 5 MG Tablet PO (07:54)
[2021-04-07] MEDS: Folic Acid 1 MG Tablet PO (07:55)
[2021-04-07] MEDS: Thiamine Hydrochloride 100 MG Tablet PO (07:55)
[2021-04-07] MEDS: LORazepam 1 MG Tablet 2 MG PO ×2 (08:04→10:19)
[2021-04-07 08:16] LABS: Anion Gap 13 (5-15); BUN 5 mg/dL (7-18); BUN/Creat Ratio 6.2 RATIO (10-20); Calcium,Total 7.7 mg/dL (8.5-10.1); Chloride 97 mmol/L (98-107); Creatinine, Serum 0.81 mg/dL (0.70-1.30); EST Glomerular Filtration Rate 105 mL/min (>60); Est Glom Filt Rate - Afr Amer 127 mL/min (>60); Glucose 104 mg/dL (74-106); Potassium 2.7 mmol/L (3.5-5.1); Sodium Level 136 mmol/L (136-145)
--- NOTE | 2021-04-07 09:22 | ADDICTION ---
The television script writer met w/Pt to discuss d/c plan. PT plans to f/u with [facility] for residential treatment and follow-up counseling services. PT did indicate a need for transportation post d/c from [facility]. [facility] will provide a transport.
[2021-04-07 10:00] VITALS: BP 139/87; PULSE 86; RESP 14; TEMP 36.8; O2SAT 99
--- NOTE | 2021-04-07 11:32 | PCM.PN.HOSP ---
Subjective Subjective Patient states he is feeling better today. Patient states he has decided to follow-up with residential treatment at [facility] following detox completion. Objective Data Objective Data Vital Signs: Vital Signs Temp Pulse Resp BP Pulse Ox 98.3 F 86 14 139/87 H 99 04/07/21 10:00 04/07/21 10:00 04/07/21 10:00 04/07/21 10:00 04/07/21 10:00 Oxygen Delivery Method Room Air Weight: 78.1 kg Body Mass Index (BMI) 27.8 Intake & Output: Intake and Output for Last 24 Hours 04/05/21 04/06/21 04/07/21 23:59 23:59 23:59 Intake Total 1000 / 1000 Balance 1000 / 1000 Lab / Micro Data Result Diagrams: 04/07/21 06:30 04/07/21 06:30 Labs: Laboratory Results - last 24 hr 04/07/21 00:42: Urine Opiates Screen NEGATIVE, Urine Methadone Screen NEGATIVE, Ur Barbiturates Screen POSITIVE H, Ur Phencyclidine Scrn NEGATIVE, Ur Amphetamines Screen NEGATIVE, U Methamphetamin-MDMA POSITIVE H, U Benzodiazepines Scrn NEGATIVE, Urine Cocaine Screen NEGATIVE, U Cannabinoids Screen POSITIVE H, Ur Drug Screen Comment 04/07/21 06:30: WBC 5.9, RBC 3.97 L, Hgb 11.3 L, Hct 32.9 L, MCV 82.9, MCH 28.5, MCHC 34.3 D, RDW Std Deviation 59.7 H, RDW Coeff of [place] 19.8 H, Plt Count 344, MPV 8.9, Immature Gran % (Auto) 0.200, Neut % (Auto) 68.5, Lymph % (Auto) 22.1, [place] % (Auto) 7.7, Eos % (Auto) 0.5, Baso % (Auto) 1.0, Absolute Neuts (auto) 4.0, Absolute Lymphs (auto) 1.29, Nucleated RBC % 0 04/07/21 06:30: Sodium 136, Potassium 2.7 L*, Chloride 97 L, Carbon Dioxide 26.0, Anion Gap 13, BUN 5 L, Creatinine 0.81, Estim Creat Clear Calc 90.80, Est GFR (MDRD) Af Amer 127, Est GFR (MDRD) Non-Af 105, BUN/Creatinine Ratio 6.2 L, Glucose 104, Calcium 7.7 L Physical Exam Const alert, oriented x3 and no apparent distress Constitutional Narrative: Overweight white male lying in bed, middle-aged, appears comfortable, much less tremulous and more comfortable appearing this morning Exam Limitations: no limitations Nutritional Appearance: overweight HEENT head/scalp atraumatic and moist oral mucous membranes Head and Scalp: normocephalic Resp normal respiratory effort, no retractions, no use of accessory muscles and clear to auscultation bilaterally Auscultation: Negative for crackles, rales, rhonchi or wheezes Cardio regular rate, regular rhythm, S1 normal heart sound, S2 normal heart sound, no murmurs, no rub, no gallops, no clicks and no JVD GI normal to inspection, nondistended, normoactive bowel sounds, soft to palpation, non-tender and non-distended Extremity no clubbing, cyanosis or edema Peripheral Pulses: Yes pulses 2+ throughout Neuro oriented x3 and moves all extremities Neuro Narrative: Very fine tremor but much improved in the last 24 hours Sensorium / Orientation: awake and alert Speech: speech normal Psych Psych Narrative: Eye contact is fair, patient appears mildly anxious Assessment & Plan Assessment/Plan (1) Alcohol withdrawal: QUALIFIERS: Complication of substance-induced condition: uncomplicated Qualified Code(s): F10.230 - Alcohol dependence with withdrawal, uncomplicated (2) Hypokalemia: PLAN: Acute alcohol withdrawal -Continue phenobarbital taper protocol -Continue supportive medications as needed -Thiamine and folate -180 has been in to see the patient and the plan is for discharge to inpatient rehabilitation once she is stabilized -Anticipate discharge probably in the next 48 hours if the patient remains stable Hypokalemia -Potassium is 2.7 this morning -40 mill equivalents p.o. twice daily x1 day -Recheck a.m. potassium -Check a.m. magnesium level Bipolar disorder -Patient had been on Abilify as an outpatient but stopped taking the medication in approximately November -He contributes this to his inability to stay sober -We have checked with the pharmacy and his home dose was Abilify 2 mg daily -Restart home Abilify dosing Alcoholic hepatitis -Mild in comparison at this admission -Typically resolves with alcohol cessation GERMANIA -Patient is noncompliant with home sleep apnea treatment -Recommend CPAP use at discharge or follow-up Hypertension/hyperlipidemia -Continue home medications Chronic anemia -Normocytic and mild -Likely related to chronic alcohol use and marrow suppression -Monitor GERD -Continue PPI Depression anxiety -Continue home medications DVT prophylaxis -Early ambulation protocol Charges/Coding Visit Charges Inpatient E&M: 55467 Subs Hosp L2
--- NOTE | 2021-04-07 12:48 | DS.PCM_ITS ---
Providers Date of Admission: 04/06/21 Primary Care Physician: Dr. Enoch Ramirez MD Reason For Visit: ETOH DETOX Diagnosis Discharge Diagnosis (1) Alcohol withdrawal: Status: Acute Code(s): F10.239 - Alcohol dependence with withdrawal, unspecified Qualifiers: Complication of substance-induced condition: uncomplicated Qualified Code(s): F10.230 - Alcohol dependence with withdrawal, uncomplicated (2) Hypokalemia: Status: Resolved Code(s): E87.6 - Hypokalemia Medications at Discharge Home Medications amlodipine 5 mg PO DAILY 10/15/16 lisinopril 20 mg PO DAILY 10/15/16 metoprolol succinate 25 mg PO DAILY 10/15/16 bupropion HCl 300 mg PO DAILY 07/12/18 pantoprazole 20 mg PO DAILY 07/12/18 trazodone 100 mg PO QHS 07/12/18 atorvastatin 40 mg PO QHS 03/01/21 escitalopram oxalate 10 mg PO QHS 03/01/21 folic acid 1 mg PO DAILY 03/01/21 aripiprazole 2 mg PO DAILY 04/06/21 Hospital Course Summary of Care Provided Minutes Spent on Discharge: 15 Hospital Course: Mr. Torres is a 56-year-old male who presented to the emergency department [facility] on the a.m. of 04/06/2021 for acute alcohol detox. The patient was admitted to the medical surgical floor where he was treated with a phenobarb taper, supportive medication, and seen by 180. Upon discussion with him earlier today he had plans for residential treatment at discharge but this afternoon I was notified the patient was going to leave AGAINST MEDICAL ADVICE. He told nursing he had other plans with regards to his alcohol detox. We did explain to him that he was a high risk for repeat use and continued issues but he noted he had to go to get a tox Jonnie for his daughter's wedding. He signed AMA paperwork. We did tell him he would be more than welcome back if he decided to represent to the emergency department. Physical Exam Narrative See exam from note earlier today Weight / BMI Weight Weight: 78.1 kg Body Mass Index (BMI) 27.8 ABG / Lab / Microbiology Data Result Diagrams: 04/07/21 06:30 04/07/21 06:30 Laboratory: Laboratory Results - last 24 hr 04/07/21 00:42: Urine Opiates Screen NEGATIVE, Urine Methadone Screen NEGATIVE, Ur Barbiturates Screen POSITIVE H, Ur Phencyclidine Scrn NEGATIVE, Ur Amphetami evan Screen NEGATIVE, U Methamphetamin-MDMA POSITIVE H, U Benzodiazepines Scrn NEGATIVE, Urine Cocaine Screen NEGATIVE, U Cannabinoids Screen POSITIVE H, Ur Drug Screen Comment 04/07/21 06:30: WBC 5.9, RBC 3.97 L, Hgb 11.3 L, Hct 32.9 L, MCV 82.9, MCH 28.5, MCHC 34.3 D, RDW Std Deviation 59.7 H, RDW Coeff of [place] 19.8 H, Plt Count 344, MPV 8.9, Immature Gran % (Auto) 0.200, Neut % (Auto) 68.5, Lymph % (Auto) 22.1, [place] % (Auto) 7.7, Eos % (Auto) 0.5, Baso % (Auto) 1.0, Absolute Neuts (auto) 4.0, Absolute Lymphs (auto) 1.29, Nucleated RBC % 0 04/07/21 06:30: Sodium 136, Potassium 2.7 L*, Chloride 97 L, Carbon Dioxide 26.0, Anion Gap 13, BUN 5 L, Creatinine 0.81, Estim Creat Clear Calc 90.80, Est GFR (MDRD) Af Amer 127, Est GFR (MDRD) Non-Af 105, BUN/Creatinine Ratio 6.2 L, Glucose 104, Calcium 7.7 L Meaningful Use Info Meaningful Use Diagnoses (Choose all that apply): None applicable Discharge Plan Admission Admit Date/Time: 04/06/21 00:49 Attending Provider: Mya Ulrich Primary Care Provider: Enoch Ramirez Discharge Orders/Prescriptions Prescriptions: No Action lisinopril 20 MG tablet 20 mg PO DAILY RF: 0 amlodipine 5 MG tablet 5 mg PO DAILY RF: 0 metoprolol succinate 25 MG tablet extended release 24 hr 25 mg PO DAILY RF: 0 trazodone 100 MG tablet 100 mg PO QHS RF: 0 pantoprazole 40 MG tablet 20 mg PO DAILY RF: 0 bupropion HCl 300 MG tablet extended release 24 hr 300 mg PO DAILY RF: 0 atorvastatin 40 mg tablet 40 mg PO QHS RF: 0 folic acid 1 mg Tablet 1 mg PO DAILY RF: 0 escitalopram oxalate 10 mg Tablet 10 mg PO QHS RF: 0 aripiprazole 2 mg tablet 2 mg PO DAILY RF: 0 Referrals / Follow Up: Enoch Ramirez MD [Primary Care Provider] - Charges/Coding Visit Charges Inpatient E&M: 01516 Disch Hosp
--- NOTE | 2021-04-07 12:53 | NURSING ---
PT LEFT AMA. SEE NURSES ROUNDING INTERVENTION. DR CHIN AWARE
--- NOTE | 2021-04-08 09:34 | CASEMGMT ---
Social Work Note SYED updated that pt called [facility] pharmacy to inquire about Abilify. Liam in Pharmacy states he thought pt sounded very depressed on the phone. Since pt left AMA yesterday, pt left without any medications. SW placed a call to pt and introduced self and role at [facility]. SW explained that since pt left AMA, no medications were prescribed for pt. SW asked pt who originally prescribed the Abilify for pt and pt states Harsha at [facility] initially prescribed Abilify. Pt states he reached out to Harsha but was informed Harsha is on vacation for a week. SW encouraged pt to call [facility] again to see if anyone is covering for Harsha that could prescribe pt Abilify until Harsha returns. SW also encouraged pt to call his PCP as well. Pt states understanding, thanked this worker for calling. Alma Rosa Huggins SUBWAY TRAIN OPERATOR, ADOBE MAKER
== END 2021-04-07 12:43 | disposition left against medical advice (07) | DRG 894 ==
LOC: ED 04-06 01:01 → MS3 04-06 01:18
PROVIDERS: Nurse Practitioner Family; Admitting Provider Hospitalist; Emergency Provider Emergency Medicine; PCP Family Medicine; Visit Provider Internal Medicine
DX: F10.230 Alcohol dependence with withdrawal, uncomplicated (principal); E87.6 Hypokalemia; F31.9 Bipolar disorder, unspecified; K21.9 Gastro-esophageal reflux disease without esophagitis; I10 Essential (primary) hypertension; E78.5 Hyperlipidemia, unspecified; G47.33 Obstructive sleep apnea (adult) (pediatric); D64.9 Anemia, unspecified; K70.10 Alcoholic hepatitis without ascites; Z91.19 Patient's noncompliance with other medical treatment and regimen; F41.8 Other specified anxiety disorders; Y90.8 Blood alcohol level of 240 mg/100 ml or more; Z82.0 Family history of epilepsy and other diseases of the nervous system; F12.90 Cannabis use, unspecified, uncomplicated
CPT/HCPCS: 36415; 80048; 80076; 80307; 82077; 83690; 85025; 85610; 85730; 93005; 99285; J7030; 90686; A4216

== ENCOUNTER 2021-04-20 15:25 | Emergency (ER) | payer MEDICAID, SELFPAY ==
[2021-04-20 15:26] VITALS: BP 149/93; PULSE 85; RESP 16; TEMP 36.7; O2SAT 98; BMI 27.7
--- NOTE | 2021-04-20 15:49 | RAD_ITS ---
STUDY: X-RAY - PELVIS AND LEFT HIP REASON FOR EXAM: Male, 56 years old. Fell two weeks ago, continued pain. TECHNIQUE: 3 views of the pelvis and hip. COMPARISON: None. FINDINGS: Advanced changes of the left femoral head due to avascular necrosis includes cortical thinning and irregularity, sclerosis, and cystic changes. Mild cortical spurring is also present at the periphery of the left femoral head. The left hip joint is moderately narrowed. The right hip joint is mildly narrowed. There is a non-specific bowel gas pattern. Normal visualized soft tissue structures. Surgical clips are seen in the inguinal regions. No fracture is present. Normal bilateral iliac wings, sacroiliac joints and visualized sacrum. Normal bilateral superior and inferior pubic rami. There are degenerative changes of the pubic symphysis with articular narrowing and sclerosis. Normal bilateral ischial tuberosities. Normal visualized femoral head. Normal acetabulum. Normal hip joint. RAD/HIP, UNI W/ Pelvis 2-3 Views IMPRESSION: 1. Advanced changes of the left femoral head due to avascular necrosis includes cortical thinning and irregularity, sclerosis, and cystic changes. Electronically Signed: Lane Timmons MD at 16:35 EDT , Service support ,
--- NOTE | 2021-04-20 15:55 | ED.VIS.LOWEX ---
HPI History of Present Illness Chief Complaint: Fall Narrative Narrative: 56-year-old male presenting with left hip pain. He states that he fell a couple of weeks ago injuring the left hip. He states initially he had trouble ambulating and states he was crawling around. He has had improvement since then and is ambulatory but complains of continuing pain which is now worsening again in the left gluteal region. He denies a new injury. He has not seen his primary care provider for this. He has not had an x-ray of the left hip. Of note patient also states that he is an alcoholic. He drinks about a gallon and a half of dilute whiskey daily. He believes this is 40%. Patient states his last drink was today. He seems unclear as to whether he wants detox again or not. He states he was here couple of times in March for that. He states that after the stay he had for detox previously he noted that he had pain in the hip after discharge. He denies any new falls or injury. He states that he sometimes does have to crawl up the stairs due to pain. He believes he may be able to walk but does not want to straighten his hip. Patient states that his daughter got on Monday and he was able to walk her down the aisle but states it was very painful. Patient denies previous hip fracture of the left hip. [facility] Medical History Acute alcoholic pancreatitis Alcohol abuse Alcohol withdrawal Alcoholic hepatitis Anemia Anxiety Bicytopenia Bipolar disorder Depression Essential (primary) hypertension ETOH abuse GERD (gastroesophageal reflux disease) Hypokalemia Hypomagnesemia Insomnia Leukopenia Non-smoker GERMANIA (obstructive sleep apnea) GERMANIA (obstructive sleep apnea) Pancreatitis Sleep apnea Substance abuse Home Medications amlodipine 5 mg PO DAILY 10/15/16 [History Last Taken 04/05/21] lisinopril 20 mg PO DAILY 10/15/16 [History Last Taken 04/05/21] metoprolol succinate 25 mg PO DAILY 10/15/16 [History Last Taken 04/05/21] bupropion HCl 300 mg PO DAILY 07/12/18 [History Last Taken 04/05/21] pantoprazole 20 mg PO DAILY 07/12/18 [History Last Taken 04/05/21] trazodone 100 mg PO QHS 07/12/18 [History Last Taken 04/04/21] atorvastatin 40 mg PO QHS 03/01/21 [History Last Taken 04/04/21] escitalopram oxalate 10 mg PO QHS 03/01/21 [History Last Taken 04/04/21] folic acid 1 mg PO DAILY 03/01/21 [History Last Taken 04/05/21] aripiprazole 2 mg PO DAILY 04/06/21 [History Last Taken Unknown] naltrexone 50 mg PO/SL DAILY 04/20/21 [History Last Taken Unknown] Allergy/AdvReac Type Severity Reaction Status Date / Time No Known Allergies Allergy Verified 04/20/21 15:30 Family History Mother Cancer Father PD (Parkinson's disease) Social History current occupational status: unemployed Smoking Status: Never smoker alcohol intake: former year quit: 2016 substance use type: does not use ROS ROS ED Constitutional Constitutional ED: Denies chills or fever(s) Eyes Eyes: Denies blurry vision or change in vision ENT ENT ED: Denies rhinorrhea or sore throat Cardiovascular Cardiovascular: Denies chest pain or palpitations Respiratory/Chest Respiratory/Chest: Denies cough or dyspnea Gastrointestinal Gastrointestinal: Denies abdominal pain, nausea or vomiting Genitourinary Genitourinary ED: Denies dysuria or hematuria Musculoskeletal Musculoskeletal: Reports other Details: Left gluteal pain Integumentary Denies Abrasions or rash Neurologic Neurologic: Denies headache(s) or paresthesias EXAM Physical Exam Const Vital Signs: 04/20/21 15:26 04/20/21 17:03 Temperature 98.1 F 98.4 F Temperature Source Oral Pulse Rate 85 78 Respiratory Rate 16 16 Blood Pressure 149/93 H 149/93 H Blood Pressure Mean 111 Pulse Ox 98 98 Positive well nourished General Appearance ED: NAD HEENT Reports moist mucous membranes normocephalic and atraumatic Eyes PERRL Resp normal respiratory effort and clear to auscultation bilaterally Back/Spine no CVA tenderness Lumbar Spine / Lower Back: straight leg raise positive right at 40 degrees; Negative for lumbar spinal tenderness Extremity Extremity Narrative: Tenderness to palpation in the left gluteal region. This is focal over the sciatic region. No bony deformity or bony tenderness. Patient able to stand and walk under his own strength. He does have antalgic gait Neuro oriented x3 and CN's II-XII intact bilaterally Sensorium / Orientation: alert Psych mental status grossly normal Skin no wounds Rashes: no rashes MDM MDM MDM Narrative Medical decision making narrative: 56-year-old male presenting with left hip pain which has been ongoing for weeks. He is ambulatory with antalgic gait. I did obtain an image of the left hip which shows looks to be avascular sclerosis and degenerative changes on my interpretation and the radiologist does agree. Patient is also a very heavy drinker. He does not express that the desire to detox. I did ask him multiple times. I do not believe he needs to be admitted to the hospital but he does need orthopedic follow-up. He will be given this. I do not feel comfortable giving him pain medication giving the amount of alcohol that he drinks. He is counseled to use ice and rest as needed. He is given return precautions. He is given crutches for assistance with ambulation. Impression: 1. Avascular necrosis left hip 2. History of mechanical fall. 3. History of EtOH abuse Radiography Diagnostic Testing: Clinical Impression(s) from Imaging Studies Hip/Pelvis X-Ray 04/20/21 15:49 IMPRESSION: 1. Advanced changes of the left femoral head due to avascular necrosis includes cortical thinning and irregularity, sclerosis, and cystic changes. Electronically Signed: Lane Timmons MD at 16:35 EDT , Service support , Discharge Plan Triage Chief Complaint: Fall ED Provider: Blade Allison Dx/Rx/DC Orders Instructions: Understanding Osteonecrosis, ED Alcohol Abuse Prescriptions: No Action lisinopril 20 MG tablet 20 mg PO DAILY RF: 0 amlodipine 5 MG tablet 5 mg PO DAILY RF: 0 metoprolol succinate 25 MG tablet extended release 24 hr 25 mg PO DAILY RF: 0 trazodone 100 MG tablet 100 mg PO QHS RF: 0 pantoprazole 40 MG tablet 20 mg PO DAILY RF: 0 bupropion HCl 300 MG tablet extended release 24 hr 300 mg PO DAILY RF: 0 atorvastatin 40 mg tablet 40 mg PO QHS RF: 0 folic acid 1 mg Tablet 1 mg PO DAILY RF: 0 escitalopram oxalate 10 mg Tablet 10 mg PO QHS RF: 0 aripiprazole 2 mg tablet 2 mg PO DAILY RF: 0 naltrexone 50 mg PO/SL DAILY RF: 0 Primary Care Provider: Enoch Ramirez Referrals: Jurgen Nye MD [STAFF PHYSICIAN] - As Needed Enoch Ramirez MD [Primary Care Provider] - Disposition Disposition: Home, Self Care Discharge Date/Time: 04/20/21 17:05
[2021-04-20] MEDS: Ketorolac 15 MG/ML Vial IM (16:18)
[2021-04-20 17:03] VITALS: BP 149/93; PULSE 78; RESP 16; TEMP 36.9; O2SAT 98
== END 2021-04-20 17:05 | disposition home or self-care (01) ==
PROVIDERS: Emergency Provider Student in an Organized Health Care Education/Training Program; PCP Family Medicine
DX: M87.9 Osteonecrosis, unspecified (principal); F10.20 Alcohol dependence, uncomplicated; F41.9 Anxiety disorder, unspecified; F31.9 Bipolar disorder, unspecified; I10 Essential (primary) hypertension; K21.9 Gastro-esophageal reflux disease without esophagitis; Z91.81 History of falling; Z79.899 Other long term (current) drug therapy
CPT/HCPCS: 73502; 96372; 99284

== ENCOUNTER 2021-04-30 15:51 | Inpatient (IN) | payer MEDICAID, SELFPAY ==
[2021-04-30 15:52] VITALS: BP 178/97; PULSE 97; RESP 18; TEMP 36.1; O2SAT 97; BMI 27.7
--- NOTE | 2021-04-30 16:10 | EX.ED.SAOD ---
HPI History of Present Illness Chief Complaint: Substance Abuse Informant: patient Narrative Narrative: Presents for alcohol detoxification. Patient states he relapsed approximately week ago when he follow-up with orthopedics stating he is going to need hip replacement for his avascular necrosis. He states he lost his job, increasing stress financially. He denies homicidal or suicidal ideations. Drinking 1/5 of vodka a day. States drink last night, awaken with significant tremors there for started drinking to try to settle this down. Denies nausea or vomiting. No fevers. No chest pains or racing heart. Recently here last month states his detox and it helped. He did not want inpatient detox at that time. He stated he waited for 180 to call back 5 times a call back it was too late. Denies any withdrawal seizures in the past. He states drinks heavily for the past 10 to 15 years. Previously has used marijuana however none recently. Denies any other recreational drug use. [facility] similar symptoms: [facility] Medical History (Updated 04/30/21 @ 21:[address] Bijan Summers, DO) Acute alcoholic pancreatitis Alcohol abuse Alcohol withdrawal Alcoholic hepatitis Anemia Anxiety Bicytopenia Bipolar disorder Depression Essential (primary) hypertension ETOH abuse GERD (gastroesophageal reflux disease) Hypokalemia Hypomagnesemia Insomnia Leukopenia Non-smoker GERMANIA (obstructive sleep apnea) GERMANIA (obstructive sleep apnea) Pancreatitis Sleep apnea Substance abuse Home Medications amlodipine 5 mg PO DAILY 10/15/16 [History Last Taken 04/30/21] lisinopril 20 mg PO DAILY 10/15/16 [History Last Taken 04/30/21] metoprolol succinate 25 mg PO DAILY 10/15/16 [History Last Taken 04/30/21] bupropion HCl 300 mg PO DAILY 07/12/18 [History Last Taken 04/30/21] trazodone 100 mg PO QHS 07/12/18 [History Last Taken 04/29/21] atorvastatin 40 mg PO QHS 03/01/21 [History Last Taken 04/29/21] escitalopram oxalate 10 mg PO QHS 03/01/21 [History Last Taken 04/29/21] folic acid 1 mg PO DAILY 03/01/21 [History Last Taken 04/30/21] B complex with C 20-folic acid [Virt-Caps] 1 cap PO DAILY 04/30/21 [History Last Taken 04/30/21] aripiprazole [Abilify] 5 mg PO DAILY 04/30/21 [History Last Taken 04/30/21] naltrexone 50 mg PO DAILY 04/30/21 [History Last Taken 04/30/21] pantoprazole 20 mg PO DAILY 04/30/21 [History Last Taken 04/30/21] Allergy/AdvReac Type Severity Reaction Status Date / Time No Known Allergies Allergy Verified 04/30/21 15:53 Family History (Reviewed 04/30/21 @ 17:34 by Kathleen Larson MEDICAL ASSISTANT SECRETARY, MEDICAL ASSISTANT SECRETARY-C) Mother Cancer Father PD (Parkinson's disease) Social History (Updated 04/30/21 @ 17:36 by Kathleen Larson NP, MEDICAL ASSISTANT SECRETARY-C) current occupational status: unemployed Smoking Status: Never smoker alcohol intake: current alcohol intake frequency: 3 or more drinks per day substance use type: does not use ROS ROS ED Constitutional Constitutional ED: Denies chills, fever(s) or sweats Eyes Eyes: Denies change in vision ENT ENT ED: Denies dysphagia or sore throat Cardiovascular Cardiovascular: Denies chest pain, leg edema, palpitations or racing heartbeat Respiratory/Chest Respiratory/Chest: Denies cough, dyspnea or dyspnea on exertion Gastrointestinal Gastrointestinal: Denies abdominal pain, diarrhea, nausea or vomiting Genitourinary Genitourinary ED: Denies dysuria, hematuria or urinary frequency Musculoskeletal Musculoskeletal: Denies back pain, extremity pain or neck pain Integumentary Denies rash or wounds Neurologic Neurologic: Denies headache(s), paresthesias or weakness EXAM Physical Exam Const Vital Signs: 04/30/21 15:52 04/30/21 17:13 Temperature 96.9 F L Temperature Source Temporal Pulse Rate 97 93 Respiratory Rate 18 20 H Blood Pressure 178/97 H 139/92 H Blood Pressure Mean 124 107 Pulse Ox 97 95 Oxygen Delivery Method Room Air Room Air Positive well nourished and well developed General Appearance ED: well developed and NAD HEENT Reports moist mucous membranes normocephalic and atraumatic Eyes PERRL, EOMs intact bilaterally and conjunctivae normal General Eye ED: Yes normal appearance of both eyes Neck no lymphadenopathy and supple General: Negative for tenderness Chest Wall Chest: Negative for tenderness Resp normal respiratory effort and normal air movement Effort and Inspection: symmetric chest movement; Negative for respiratory distress Cardio regular rate, regular rhythm and no murmurs Peripheral Pulses: pulses 2+ throughout GI normal to inspection, nondistended, normoactive bowel sounds and non-tender Palpation: Negative for guarding or rebound tenderness present Back/Spine no CVA tenderness and no thoracic nor lumbar tenderness Extremity normal to inspection General Extremety ED: Negative for edema or tenderness General Extremity: Negative for edema Neuro oriented x3 and no sensory deficits noted Neuro Narrative: Visible tremors of bilateral upper extremities when extended. Sensorium / Orientation: awake and alert Psych Psych Narrative: Denies suicidal homicidal ideations. Skin no rashes or lesions noted and no wounds MDM MDM MDM Narrative Medical decision making narrative: Patient with tremors on exam. Ativan was given. He would like assistance with alcohol. Clearance labs obtained. Potassium 2.7 orally replaced. Magnesium added. Alcohol returned at 151. Clinically more stable on reevaluation. Tox screen positive for THC and amphetamines. I spoke with hospitalist Dr. Escobar for admission. Lab Data Attestation: I reviewed the patient's lab results. Labs: Laboratory Results - last 24 hr 04/30/21 04/30/21 04/30/21 16:25 16:25 16:25 WBC 8.2 RBC 4.38 L Hgb 12.3 L Hct 36.6 L MCV 83.6 MCH 28.1 MCHC 33.6 RDW Std Deviation 50.9 H RDW Coeff of [place] 16.7 H Plt Count 243 MPV 8.8 Immature Gran % (Auto) 0.400 Neut % (Auto) 83.3 H Lymph % (Auto) 9.9 L [place] % (Auto) 6.2 Eos % (Auto) 0.0 Baso % (Auto) 0.2 Absolute Neuts (auto) 6.8 Absolute Lymphs (auto) 0.81 L Nucleated RBC % 0 Sodium 136 Potassium 2.7 L* Chloride 98 Carbon Dioxide 23.0 Anion Gap 15 BUN 11 Creatinine 0.76 Estim Creat Clear Calc 96.77 Est GFR (MDRD) Af Amer 137 Est GFR (MDRD) Non-Af 113 BUN/Creatinine Ratio 14.6 Glucose 83 Calcium 7.5 L Magnesium Total Bilirubin 0.70 Direct Bilirubin 0.25 AST 91 H ALT 66 H Alkaline Phosphatase 97 Total Protein 7.8 Albumin 3.8 Globulin 4.0 Urine Opiates Screen Urine Methadone Screen Ur Barbiturates Screen Ur Phencyclidine Scrn Ur Amphetamines Screen U Methamphetamin-MDMA U Benzodiazepines Scrn Urine Cocaine Screen U Cannabinoids Screen Ur Drug Screen Comment Ethyl Alcohol 151.0 04/30/21 04/30/21 16:45 17:00 WBC RBC Hgb Hct MCV MCH MCHC RDW Std Deviation RDW Coeff of [place] Plt Count MPV Immature Gran % (Auto) Neut % (Auto) Lymph % (Auto) [place] % (Auto) Eos % (Auto) Baso % (Auto) Absolute Neuts (auto) Absolute Lymphs (auto) Nucleated RBC % Sodium Potassium Chloride Carbon Dioxide Anion Gap BUN Creatinine Estim Creat Clear Calc Est GFR (MDRD) Af Amer Est GFR (MDRD) Non-Af BUN/Creatinine Ratio Glucose Calcium Magnesium 0.5 L* Total Bilirubin Direct Bilirubin AST ALT Alkaline Phosphatase Total Protein Albumin Globulin Urine Opiates Screen NEGATIVE Urine Methadone Screen NEGATIVE Ur Barbiturates Screen NEGATIVE Ur Phencyclidine Scrn NEGATIVE Ur Amphetamines Screen NEGATIVE U Methamphetamin-MDMA POSITIVE H U Benzodiazepines Scrn NEGATIVE Urine Cocaine Screen NEGATIVE U Cannabinoids Screen POSITIVE H Ur Drug Screen Comment Ethyl Alcohol Discharge Plan Dx/Rx/DC Orders Clinical Impression: Alcohol dependence, Acute hypokalemia, Polysubstance dependence Disposition Disposition: Acute Care Hospital [facility] Discharge Date/Time: 04/30/21 18:12
--- NOTE | 2021-04-30 16:14 | ED.RN ---
pt. states drinks 1/5 of diluted vodka a day.
[2021-04-30] MEDS: LORazepam 2 MG/ML Syringe 1 MG IV (16:29)
[2021-04-30 16:35] LABS: Absolute Lymphocyte Count 0.81 X10^3/uL (0.83-4.51); Absolute Neutrophil Count 6.8 X10^3/uL (2.0-7.7); Basophil# 0.02 X10^3/uL; Basophil% 0.2 % (0-1); Hematocrit 36.6 % (40-54); Hemoglobin 12.3 g/dL (13.0-16.5); Lymphocyte # 0.81 X10^3/ul (0.83-4.51); Lymphocyte % 9.9 % (19-41); Mean Corp Hgb Conc 33.6 g/dL (32-36); Mean Corpuscular Hgb 28.1 pg (27.0-32.0); Mean Corpuscular Volume 83.6 fL (80-94); Mean Platelet Vol. 8.8 fl (6.2-12.0); Monocyte# 0.51 X10^3/uL; Monocyte% 6.2 % (0-10); NRBC Flagged by Analyzer 0 % (0-5); Neutrophil # 6.81 X10^3/uL (2.7-7.7); Neutrophil % 83.3 % (47-70); Platelet Count 243 K/mm3 (150-450); RBC Distribution Width CV 16.7 % (11.6-14.6); RBC Distribution Width SD 50.9 fl (35.1-43.9); Red Blood Count 4.38 M/mm3 (4.6-6.2); White Blood Count 8.2 K/mm3 (4.4-11.0)
[2021-04-30 17:06] LABS: AST(SGOT) 91 U/L (15-37); Alanine Aminotransfer ALT/SGPT 66 U/L (16-61); Albumin, Serum 3.8 g/dL (3.2-5.0); Alkaline Phosphatase 97 U/L (45-117); Anion Gap 15 (5-15); BUN 11 mg/dL (7-18); BUN/Creat Ratio 14.6 RATIO (10-20); Bilirubin, Direct 0.25 mg/dL (0.00-0.30); Calcium,Total 7.5 mg/dL (8.5-10.1); Chloride 98 mmol/L (98-107); Creatinine, Serum 0.76 mg/dL (0.70-1.30); EST Glomerular Filtration Rate 113 mL/min (>60); Est Glom Filt Rate - Afr Amer 137 mL/min (>60); Estimated Creatinine Clearance 96.77 ml/min; Glucose 83 mg/dL (74-106); Potassium 2.7 mmol/L (3.5-5.1); Protein, Total 7.8 g/dL (6.4-8.2); Sodium Level 136 mmol/L (136-145)
--- NOTE | 2021-04-30 17:07 | MDS.RN ---
PT POTASSIUM 2.7. DR LUKE
[2021-04-30 17:13] VITALS: BP 139/92; PULSE 93; RESP 20; O2SAT 95
[2021-04-30 17:14] LABS: Amphetamine Urine VISTA NEGATIVE (<1000 ng/mL); Barbiturate Urine VISTA NEGATIVE (< 200 ng/mL); Benzodiazepine Urine VISTA NEGATIVE (< 200 ng/mL); Cocaine Urine VISTA NEGATIVE (< 300 ng/mL); Ecstacy Urine VISTA POSITIVE (< 500 ng/mL); Methadone Urine VISTA NEGATIVE (< 300 ng/mL); PCP Urine VISTA NEGATIVE (< 25 ng/mL); THC Urine VISTA POSITIVE (< 50 ng/mL); Vista UDS pH Range 6
--- NOTE | 2021-04-30 17:31 | HP.PCM.HOS_ITS ---
Documented by User: Kathleen Larson NP, MERCHANDISE PRESENTATION ASSOCIATE-C 04/30/21 18:01 HPI - General General Date of Admission: 04/30/21 HPI Narrative CHERELLE STEEN, is a 56 M who presents to the Emergency Room requesting alcohol detox. Patient reports his last drink around 3:00 this afternoon due to developing tremors. He states he drank everything he had in the house last night during the [employer] game. He states he felt okay this morning however throughout the day began to develop alcohol withdrawal symptoms. Patient reports he has cut back on his drinking and typically drinks 1/5 of vodka per day. He has been through detox several times in the past. He reports he re cently lost his job related to his alcohol use. He states he recently fell onto his left hip and needs surgery in May for replacement due to what sounds like avascular necrosis. Patient admits to occasional marijuana use. Denies other drug use. He was recently admitted for alcohol detox less than 1 month ago and states he cannot remember how long he was sober at discharge however he thinks it was less than 1 week. He is hoping to go to sober living house at discharge this admission. His other past medical history includes bipolar disorder, anxiety, depression, hypertension, hyperlipidemia. [facility] Medical History (Updated 04/30/21 @ 17:37 by Kathleen Larson MERCHANDISE PRESENTATION ASSOCIATE, MERCHANDISE PRESENTATION ASSOCIATE-C) Acute alcoholic pancreatitis Alcohol abuse Alcohol withdrawal Alcoholic hepatitis Anemia Anxiety Bicytopenia Bipolar disorder Depression Essential (primary) hypertension ETOH abuse GERD (gastroesophageal reflux disease) Hypokalemia Hypomagnesemia Insomnia Leukopenia Non-smoker GERMANIA (obstructive sleep apnea) GERMANIA (obstructive sleep apnea) Pancreatitis Sleep apnea Substance abuse Home Medications amlodipine 5 mg PO DAILY 10/15/16 [History Last Taken 04/30/21] lisinopril 20 mg PO DAILY 10/15/16 [History Last Taken 04/30/21] metoprolol succinate 25 mg PO DAILY 10/15/16 [History Last Taken 04/30/21] bupropion HCl 300 mg PO DAILY 07/12/18 [History Last Taken 04/30/21] trazodone 100 mg PO QHS 07/12/18 [History Last Taken 04/29/21] atorvastatin 40 mg PO QHS 03/01/21 [History Last Taken 04/29/21] escitalopram oxalate 10 mg PO QHS 03/01/21 [History Last Taken 04/29/21] folic acid 1 mg PO DAILY 03/01/21 [History Last Taken 04/30/21] B complex with C 20-folic acid [Virt-Caps] 1 cap PO DAILY 04/30/21 [History Last Taken 04/30/21] aripiprazole [Abilify] 5 mg PO DAILY 04/30/21 [History Last Taken 04/30/21] naltrexone 50 mg PO DAILY 04/30/21 [History Last Taken 04/30/21] pantoprazole 20 mg PO DAILY 04/30/21 [History Last Taken 04/30/21] Allergy/AdvReac Type Severity Reaction Status Date / Time No Known Allergies Allergy Verified 04/30/21 15:53 Family History Mother Cancer Father PD (Parkinson's disease) Surgical History no surgical history no surgical history Social History (Updated 04/30/21 @ 17:36 by Kathleen Larson NP, MERCHANDISE PRESENTATION ASSOCIATE-C) current occupational status: unemployed Smoking Status: Never smoker alcohol intake: current alcohol intake frequency: 3 or more drinks per day substance use type: does not use ROS Constitutional Constitutional: Denies change in weight, chills, fatigue, fever(s) or weakness Cardiovascular Cardiovascular: Denies chest pain, edema, lightheadedness, palpitations or syncope Respiratory/Chest Respiratory/Chest: Denies cough, dyspnea, productive cough, shortness of breath at rest, shortness of breath with exertion or wheezing Gastrointestinal Gastrointestinal: Denies abdominal pain, constipation, diarrhea, nausea or vomiting Genitourinary Genitourinary: Denies burning urination, difficulty urinating, dysuria, hematuria, urinary frequency, urinary incontinence or urinary urgency Musculoskeletal Musculoskeletal: Denies back pain, joint pain or muscle weakness Integumentary Integumentary: Denies erythema, lesions, rash or wounds Neurologic Neurologic: Denies abnormal speech, confusion, dizziness, focal weakness, numbness, paresthesias, seizure-like activity or syncope Psychiatric Psychiatric: Denies anxiety or depression Hematologic/Lymphatic Hematologic/Lymphatic: Denies anemia, easy bleeding or easy bruising Allergic/Immunologic Allergic/Immunologic: Denies hives or asthma Vital Signs Vital Signs Vital Signs: 04/30/21 15:52 04/30/21 17:13 Temperature 96.9 F L Temperature Source Temporal Pulse Rate 97 93 Respiratory Rate 18 20 H Blood Pressure 178/97 H 139/92 H Blood Pressure Mean 124 107 Pulse Ox 97 95 Oxygen Delivery Method Room Air Room Air Weight Weight: 172 lb Body Mass Index (BMI) 27.7 Physical Exam Const alert, oriented x3 and no apparent distress Orientation / Consciousness: awake, oriented to person, oriented to place and oriented to time HEENT normocephalic and moist oral mucous membranes Eyes PERRL, EOMs intact bilaterally and conjunctivae normal Neck no lymphadenopathy Resp normal respiratory effort and clear to auscultation bilaterally Cardio regular rate, regular rhythm and no murmurs Peripheral Pulses: pulses 2+ throughout GI normal to inspection, nondistended, normoactive bowel sounds, non-tender and non-distended Extremity normal to inspection Skin no rashes or lesions noted Lesions: no lesions Rashes: no rashes Trauma: no lacerations or abrasions Neuro CN's II-XII intact bilaterally, no focal motor deficits, no sensory deficits noted and deep tendon reflexes 2+ bilaterally Psych mental status grossly normal and affect normal Results Lab / Micro Data Result Diagrams: 04/30/21 16:25 04/30/21 16:25 Labs: Laboratory Results - last 24 hr 04/30/21 16:25: WBC 8.2, RBC 4.38 L, Hgb 12.3 L, Hct 36.6 L, MCV 83.6, MCH 28.1, MCHC 33.6, RDW Std Deviation 50.9 H, RDW Coeff of [place] 16.7 H, Plt Count 243, MPV 8.8, Immature Gran % (Auto) 0.400, Neut % (Auto) 83.3 H, Lymph % (Auto) 9.9 L, [place] % (Auto) 6.2, Eos % (Auto) 0.0, Baso % (Auto) 0.2, Absolute Neuts (auto) 6.8, Absolute Lymphs (auto) 0.81 L, Nucleated RBC % 0 04/30/21 16:25: Sodium 136, Potassium 2.7 L*, Chloride 98, Carbon Dioxide 23.0, Anion Gap 15, BUN 11, Creatinine 0.76, Estim Creat Clear Calc 96.77, Est GFR (MDRD) Af Amer 137, Est GFR (MDRD) Non-Af 113, BUN/Creatinine Ratio 14.6, Glucose 83, Calcium 7.5 L, Total Bilirubin 0.70, Direct Bilirubin 0.25, AST 91 H , ALT 66 H, Alkaline Phosphatase 97, Total Protein 7.8, Albumin 3.8, Globulin 4.0 04/30/21 16:25: Ethyl Alcohol 151.0 04/30/21 16:45: Urine Opiates Screen NEGATIVE, Urine Methadone Screen NEGATIVE, Ur Barbiturates Screen NEGATIVE, Ur Phencyclidine Scrn NEGATIVE, Ur Amphetamines Screen NEGATIVE, U Methamphetamin-MDMA POSITIVE H, U Benzodiazepines Scrn NEGATIVE, Urine Cocaine Screen NEGATIVE, U Cannabinoids Screen POSITIVE H, Ur Drug Screen Comment Micro: Microbiology 04/30/21 16:31 Nasal Secretion SARS-CoV-2 Antigen (Rapid) - Final Assessment & Plan Assessment/Plan (1) Alcohol abuse: PLAN: 1. Acute alcohol withdrawal, chronic alcohol dependence- Medical stabilization per protocol. Phenobarb taper, thiamine, folic acid, multivitamin supplementation. CIWA protocol. Addiction medicine consult. 2. Hypokalemia- replace per protocol, trend BMP. 3. Alcoholic hepatitis-appears chronic. 4.Hypertension-stable, continue home amlodipine regimen. 5. Hyperlipidemia-continue statin. 6. Bipolar disorder/depression/anxiety- bupropion, escitalopram, trazodone. Previously on Abilify which he states he is no longer taking. 7. GERMANIA-noncompliant with CPAP. 8. GERD-continue PPI. DVT prophylaxis-low risk, not indicated This patient was seen by Kathleen Larson NP-C under the supervision of Dr. Escobar. Documented by User: Dr. Charly Escobar MD 04/30/21 18:06 HPI - General General Date of Admission: 04/30/21 [facility] Medical History (Updated 04/30/21 @ 17:37 by Kathlene Larson NP, MERCHANDISE PRESENTATION ASSOCIATE-C) Acute alcoholic pancreatitis Alcohol abuse Alcohol withdrawal Alcoholic hepatitis Anemia Anxiety Bicytopenia Bipolar disorder Depression Essential (primary) hypertension ETOH abuse GERD (gastroesophageal reflux disease) Hypokalemia Hypomagnesemia Insomnia Leukopenia Non-smoker GERMANIA (obstructive sleep apnea) GERMANIA (obstructive sleep apnea) Pancreatitis Sleep apnea Substance abuse Home Medications amlodipine 5 mg PO DAILY 10/15/16 [History Last Taken 04/30/21] lisinopril 20 mg PO DAILY 10/15/16 [History Last Taken 04/30/21] metoprolol succinate 25 mg PO DAILY 10/15/16 [History Last Taken 04/30/21] bupropion HCl 300 mg PO DAILY 07/12/18 [History Last Taken 04/30/21] trazodone 100 mg PO QHS 07/12/18 [History Last Taken 04/29/21] atorvastatin 40 mg PO QHS 03/01/21 [History Last Taken 04/29/21] escitalopram oxalate 10 mg PO QHS 03/01/21 [History Last Taken 04/29/21] folic acid 1 mg PO DAILY 03/01/21 [History Last Taken 04/30/21] B complex with C 20-folic acid [Virt-Caps] 1 cap PO DAILY 04/30/21 [History Last Taken 04/30/21] aripiprazole [Abilify] 5 mg PO DAILY 04/30/21 [History Last Taken 04/30/21] naltrexone 50 mg PO DAILY 04/30/21 [History Last Taken 04/30/21] pantoprazole 20 mg PO DAILY 04/30/21 [History Last Taken 04/30/21] Allergy/AdvReac Type Severity Reaction Status Date / Time No Known Allergies Allergy Verified 04/30/21 15:53 Family History Mother Cancer Father PD (Parkinson's disease) Surgical History no surgical history Social History (Updated 04/30/21 @ 17:36 by Kathleen Larson NP, MERCHANDISE PRESENTATION ASSOCIATE-C) current occupational status: unemployed Smoking Status: Never smoker alcohol intake: current alcohol intake frequency: 3 or more drinks per day substance use type: does not use Results Lab / Micro Data Result Diagrams: 04/30/21 16:25 04/30/21 16:25 Charges/Coding Addendum Addendum: Dr. Escobar: I personally reviewed the chart and examined the patient, and agree with the above findings. 56-year-old male presenting for detox. He struggles with alcohol addiction and he has had several admissions in the last couple months related to withdrawal. His last drink was this afternoon and he normally drinks about 1/5 of vodka. He states that he had a psychiatrist helping him manage his depression and has been making some active changes in his medications recently. He is also see is [facility] as an outpatient for behavioral health and he states that he had wanted to go into the intensive outpatient prior to his last time being here for detox however there was a delay in getting back to him of about 3 weeks and in that point he states that he relapsed and was in here for detox again. Potassium in the ER was 2.7, he was replaced with 60 mEq p.o., this will be rechecked in the morning along with magnesium and phosphorus. We will put him on a phenobarb taper as well as as needed Ativan given his history of DTs. Visit Charges Inpatient E&M: 88067 Init Hosp L3
[2021-04-30 17:34] LABS: Magnesium 0.5 mg/dL (1.6-2.6)
--- NOTE | 2021-04-30 17:37 | NURSING ---
MED SURG [place] ALCOHOL DEPENDENCE
[2021-04-30] MEDS: Potassium Chloride Oral Tablet 20 MEQ 60 MEQ PO (17:41)
[2021-04-30 17:43] VITALS: BP 137/93; PULSE 104; RESP 18; TEMP 37.2; O2SAT 98
--- NOTE | 2021-04-30 17:53 | CM.ED ---
SOCIAL WORK Referral Source: Self-referral Reason for consult: alcohol detox Patient presents for detox from alcohol. Patient admits to drinking 1/5 diluted vodka/day. Call to Treatment Navigator to update on admission. Plan: CHAVO Rodrigues MSW, MIDDLE SCHOOL TEACHER
[2021-04-30 18:23] VITALS: BP 158/91; PULSE 98; RESP 20; TEMP 36.8; O2SAT 98; BMI 27.2
--- NOTE | 2021-04-30 18:29 | PCS.PANDOC ---
PANDEMIC DOCUMENTATION INITIATED: Date: 02/22/2021 Time: 190
[2021-04-30] MEDS: Phenobarbital 32.4 MG Tablet PO ×2 (18:41→22:45)
[2021-04-30 22:26] VITALS: BP 144/97; PULSE 93; RESP 20; TEMP 36.8; O2SAT 97
[2021-04-30] MEDS: Gabapentin 300 MG Capsule PO (22:45)
[2021-04-30] MEDS: hydrOXYzine PAM 25 MG Capsule 50 MG PO (22:45)
[2021-04-30] MEDS: Escitalopram Oxalate 10 MG Tablet PO (22:45)
[2021-04-30] MEDS: LORazepam 2 MG/ML Syringe IV (22:46)
[2021-04-30] MEDS: Atorvastatin Calcium 40 MG Tablet PO (22:46)
[2021-04-30] MEDS: 0.9% Saline Lock 10 ML Syringe IV (22:46)
[2021-04-30] MEDS: traZODone 100 MG Tablet PO (22:47)
[2021-05-01] VITALS (10 sets, daily range): BP systolic 110–142; BP diastolic 59–80; PULSE 78–94; RESP 16–18; TEMP 35.9–37.1; O2SAT 96–100
[2021-05-01] MEDS: 0.9% Saline Lock 10 ML Syringe IV ×3 (02:50→09:24)
[2021-05-01] MEDS: Phenobarbital 32.4 MG Tablet PO ×6 (02:51→22:38)
[2021-05-01] MEDS: hydrOXYzine PAM 25 MG Capsule 50 MG PO (02:51)
[2021-05-01] MEDS: LORazepam 2 MG/ML Syringe IV ×3 (02:52→09:24)
[2021-05-01] MEDS: Gabapentin 300 MG Capsule PO (06:41)
[2021-05-01 09:11] LABS: Anion Gap 9 (5-15); BUN 8 mg/dL (7-18); BUN/Creat Ratio 11.1 RATIO (10-20); Calcium,Total 7.2 mg/dL (8.5-10.1); Chloride 101 mmol/L (98-107); Creatinine, Serum 0.72 mg/dL (0.70-1.30); EST Glomerular Filtration Rate 120 mL/min (>60); Est Glom Filt Rate - Afr Amer 145 mL/min (>60); Estimated Creatinine Clearance 102.15 ml/min; Glucose 100 mg/dL (74-106); Magnesium 0.6 mg/dL (1.6-2.6); Phosphorus 3.9 mg/dL (2.5-4.9); Sodium Level 137 mmol/L (136-145)
[2021-05-01] MEDS: Magnesium Sulfate 4gm/100mL 4 GM/100 ML IV.SOLN. IV (09:11)
[2021-05-01] MEDS: buPROPion (XL) 300 MG TABLET.XL PO (09:12)
[2021-05-01] MEDS: Metoprolol(XL)Succ 25 MG Tablet PO (09:12)
[2021-05-01] MEDS: Thiamine Hydrochloride 100 MG Tablet PO (09:12)
[2021-05-01] MEDS: amLODIPine 5 MG Tablet PO (09:12)
[2021-05-01] MEDS: Lisinopril 20 MG Tablet PO (09:12)
[2021-05-01] MEDS: Folic Acid 1 MG Tablet PO (09:12)
[2021-05-01] MEDS: Pantoprazole Sodium 20 MG Tablet PO (09:13)
--- NOTE | 2021-05-01 09:39 | PCM.PN.HOSP ---
Documented by User: Kathleen Larson TRAIN BRAKER, TRAIN BRAKER-C 05/01/21 10:00 Subjective Subjective Patient seen and examined. WA this morning 16. Patient reports drowsiness however also having significant tremors, diaphoresis, restlessness, anxiety. Asking when his symptoms will improve. Objective Data Objective Data Vital Signs: Vital Signs Temp Pulse Resp BP Pulse Ox 98.0 F 89 18 116/73 97 05/01/21 09:16 05/01/21 09:16 05/01/21 09:16 05/01/21 09:16 05/01/21 09:16 Oxygen Delivery Method Room Air Weight: 169 lb 0.004 oz Body Mass Index (BMI) 27.2 Lab / Micro Data Result Diagrams: 04/30/21 16:25 05/01/21 08:10 Labs: Laboratory Results - last 24 hr 04/30/21 16:25: WBC 8.2, RBC 4.38 L, Hgb 12.3 L, Hct 36.6 L, MCV 83.6, MCH 28.1, MCHC 33.6, RDW Std Deviation 50.9 H, RDW Coeff of [place] 16.7 H, Plt Count 243, MPV 8.8, Immature Gran % (Auto) 0.400, Neut % (Auto) 83.3 H, Lymph % (Auto) 9.9 L, [place] % (Auto) 6.2, Eos % (Auto) 0.0, Baso % (Auto) 0.2, Absolute Neuts (auto) 6.8, Absolute Lymphs (auto) 0.81 L, Nucleated RBC % 0 04/30/21 16:25: Sodium 136, Potassium 2.7 L*, Chloride 98, Carbon Dioxide 23.0, Anion Gap 15, BUN 11, Creatinine 0.76, Estim Creat Clear Calc 96.77, Est GFR (MDRD) Af Amer 137, Est GFR (MDRD) Non-Af 113, BUN/Creatinine Ratio 14.6, Glucose 83, Calcium 7.5 L, Total Bilirubin 0.70, Direct Bilirubin 0.25, AST 91 H, ALT 66 H, Alkaline Phosphatase 97, Total Protein 7.8, Albumin 3.8, Globulin 4.0 04/30/21 16:25: Ethyl Alcohol 151.0 04/30/21 16:45: Urine Opiates Screen NEGATIVE, Urine Methadone Screen NEGATIVE, Ur Barbiturates Screen NEGATIVE, Ur Phencyclidine Scrn NEGATIVE, Ur Amphetamines Screen NEGATIVE, U Methamphetamin-MDMA POSITIVE H, U Benzodiazepines Scrn NEGATIVE, Urine Cocaine Screen NEGATIVE, U Cannabinoids Screen POSITIVE H, Ur Drug Screen Comment 04/30/21 17:00: Magnesium 0.5 L* 05/01/21 08:10: Sodium 137, Potassium 3.0 L, Chloride 101, Carbon Dioxide 27.0, Anion Gap 9, BUN 8, Creatinine 0.72, Estim Creat Clear Calc 102.15, Est GFR (MDRD) Af Amer 145, Est GFR (MDRD) Non-Af 120, BUN/Creatinine Ratio 11.1, Glucose 100, Calcium 7.2 L, Phosphorus 3.9, Magnesium 0.6 L* Micro: Microbiology 04/30/21 16:31 Nasal Secretion SARS-CoV-2 Antigen (Rapid) - Final Physical Exam Const oriented x3 Constitutional Narrative: Intermittently drowsy. Notable tremors. Diaphoretic. Orientation / Consciousness: oriented to person, oriented to place and oriented to time HEENT normocephalic and moist oral mucous membranes Eyes PERRL, EOMs intact bilaterally and conjunctivae normal Neck no lymphadenopathy Resp normal respiratory effort and clear to auscultation bilaterally Cardio regular rate, regular rhythm and no murmurs Peripheral Pulses: pulses 2+ throughout GI normal to inspection, nondistended, normoactive bowel sounds, non-tender and non-distended Extremity normal to inspection Skin no rashes or lesions noted Lesions: no lesions Rashes: no rashes Trauma: no lacerations or abrasions Neuro CN's II-XII intact bilaterally, no focal motor deficits, no sensory deficits noted and deep tendon reflexes 2+ bilaterally Psych mental status grossly normal Mood & Affect: anxious Assessment & Plan Assessment/Plan (1) Alcohol dependence: PLAN: 1. Acute alcohol withdrawal, chronic alcohol dependence- Medical stabilization per protocol. Phenobarb taper, thiamine, folic acid, multivitamin supplementation. [facility] protocol. Addiction medicine consult. 2. Hypokalemia, hypomagnesia- replace per protocol, trend BMP, mag. 3. Alcoholic hepatitis-appears chronic. 4.Hypertension-stable, continue home amlodipine, lisinopril, metoprolol regimen. 5. Hyperlipidemia-continue statin. 6. Bipolar disorder/depression/anxiety- bupropion, escitalopram, trazodone. Previously on Abilify which he states he is no longer taking. 7. GERMANIA-noncompliant with CPAP. 8. GERD-continue PPI. DVT prophylaxis-low risk, not indicated This patient was seen by REMI Evans under the supervision of Dr. Escobar. Documented by User: Dr. Charly Escobar MD 05/01/21 13:06 Objective Data Lab / Micro Data Result Diagrams: 04/30/21 16:25 05/01/21 08:10 Charges/Coding Addendum Addendum: Dr. Escobar: I personally reviewed the chart and examined the patient, and agree with the above findings. 56-year-old male presenting for detox. He struggles with alcohol addiction and he has had several admissions in the last couple months related to withdrawal. His last drink was this afternoon and he normally drinks about 1/5 of vodka. He states that he had a psychiatrist helping him manage his depression and has been making some active changes in his medications recently. He is also see is [facility] as an outpatient for behavioral health and he states that he had wanted to go into the intensive outpatient prior to his last time being here for detox however there was a delay in getting back to him of about 3 weeks and in that point he states that he relapsed and was in here for detox again. Potassium in the ER was 2.7, he was replaced with 60 mEq p.o., this will be rechecked in the morning along with magnesium and phosphorus. We will put him on a phenobarb taper as well as as needed Ativan given his history of DTs. 05/01/2021: Seems to be struggling and taking his Ativan more like scheduled versus as needed. Will add scheduled Librium and taper as necessary to prevent him from going to DTs if possible. We will have him follow-up with [facility], the last time he left [place] secondary to wanting the if it is for tox for his daughter's wedding though he would not be able to go if he was still drunk. Because he left AMA he did not qualify to go to the residential treatment that was being set up for him at that time. Magnesium this morning was 0.6. He was replaced with 4 g and will recheck in the morning. Visit Charges Inpatient E&M: 75247 Subs Hosp L2
[2021-05-01] MEDS: Potassium Chloride Oral Tablet 20 MEQ 60 MEQ PO (11:06)
[2021-05-01] MEDS: chlordiazePOXIDE 25 MG Capsule 50 MG PO ×3 (11:07→22:38)
[2021-05-01] MEDS: LORazepam 1 MG Tablet 2 MG PO (18:47)
[2021-05-01] MEDS: Escitalopram Oxalate 10 MG Tablet PO (22:38)
[2021-05-01] MEDS: traZODone 100 MG Tablet PO (22:38)
[2021-05-01] MEDS: Atorvastatin Calcium 40 MG Tablet PO (22:39)
[2021-05-01] MEDS: Dicyclomine 10 MG Capsule 20 MG PO (22:51)
[2021-05-02] MEDS: LORazepam 1 MG Tablet 2 MG PO ×5 (01:21→20:04)
[2021-05-02] MEDS: Phenobarbital 32.4 MG Tablet PO ×6 (01:52→22:16)
[2021-05-02] MEDS: Gabapentin 300 MG Capsule PO ×3 (01:53→20:04)
[2021-05-02] MEDS: hydrOXYzine PAM 25 MG Capsule 50 MG PO ×3 (01:53→22:16)
[2021-05-02] MEDS: LORazepam 2 MG/ML Syringe IV ×2 (02:38→03:41)
[2021-05-02] MEDS: 0.9% Saline Lock 10 ML Syringe IV ×2 (02:39→03:42)
[2021-05-02] MEDS: chlordiazePOXIDE 25 MG Capsule 50 MG PO (03:01)
--- NOTE | 2021-05-02 03:02 | NURSING ---
staff responded to bed exit alarm, pt getting out of bed looking for phone to return a call to [place]. pt stated I was just talking to her I just had my phone. attempted to reorient pt to time and place, also about ramp program and no phone is currently available to pt during stay. staff assisted pt back to bed call light within reach.
[2021-05-02 05:52] VITALS: BP 112/75; PULSE 83; RESP 14; TEMP 36.8; O2SAT 100
[2021-05-02 06:00] LABS: Anion Gap 9 (5-15); BUN 11 mg/dL (7-18); BUN/Creat Ratio 14.6 RATIO (10-20); Calcium,Total 6.9 mg/dL (8.5-10.1); Chloride 100 mmol/L (98-107); Creatinine, Serum 0.76 mg/dL (0.70-1.30); EST Glomerular Filtration Rate 113 mL/min (>60); Est Glom Filt Rate - Afr Amer 137 mL/min (>60); Estimated Creatinine Clearance 96.77 ml/min; Glucose 118 mg/dL (74-106); Magnesium 1.6 mg/dL (1.6-2.6); Potassium 3.4 mmol/L (3.5-5.1); Sodium Level 135 mmol/L (136-145)
[2021-05-02 09:22] VITALS: BP 126/77; PULSE 82; RESP 12; TEMP 36.6; O2SAT 96
[2021-05-02] MEDS: Lisinopril 20 MG Tablet PO (09:28)
[2021-05-02 09:29] VITALS: PULSE 82
[2021-05-02] MEDS: Folic Acid 1 MG Tablet PO (09:29)
[2021-05-02] MEDS: buPROPion (XL) 300 MG TABLET.XL PO (09:29)
[2021-05-02] MEDS: Thiamine Hydrochloride 100 MG Tablet PO (09:29)
[2021-05-02] MEDS: Pantoprazole Sodium 20 MG Tablet PO (09:29)
[2021-05-02] MEDS: amLODIPine 5 MG Tablet PO (09:29)
[2021-05-02] MEDS: Metoprolol(XL)Succ 25 MG Tablet PO (09:29)
--- NOTE | 2021-05-02 10:54 | PCM.PN.HOSP ---
Documented by User: Kathleen Larson SOFTWARE APPLICATIONS DESIGNER, SOFTWARE APPLICATIONS DESIGNER-C 05/02/21 11:00 Subjective Subjective Patient seen and examined. Drowsy this morning. Nursing reports patient developed hallucinations overnight. CIWA improved compared to prior. Objective Data Objective Data Vital Signs: Vital Signs Temp Pulse Resp BP Pulse Ox 97.8 F 82 12 126/77 H 96 05/02/21 09:22 05/02/21 09:29 05/02/21 09:22 05/02/21 09:22 05/02/21 09:22 Oxygen Delivery Method Room Air Weight: 169 lb 0.004 oz Body Mass Index (BMI) 27.2 Intake & Output: Intake and Output for Last 24 Hours 04/30/21 05/01/21 05/02/21 23:59 23:59 23:59 Intake Total 100 / 100 Output Total 850 / 850 Balance -750 / -750 Lab / Micro Data Result Diagrams: 04/30/21 16:25 05/02/21 05:10 Labs: Laboratory Results - last 24 hr 05/02/21 05:10: Sodium 135 L, Potassium 3.4 L, Chloride 100, Carbon Dioxide 26.0, Anion Gap 9, BUN 11, Creatinine 0.76, Estim Creat Clear Calc 96.77, Est GFR (MDRD) Af Amer 137, Est GFR (MDRD) Non-Af 113, BUN/Creatinine Ratio 14.6, Glucose 118 H, Calcium 6.9 L, Magnesium 1.6 Micro: Microbiology 04/30/21 16:31 Nasal Secretion SARS-CoV-2 Antigen (Rapid) - Final Physical Exam Const no apparent distress Constitutional Narrative: Drowsy Orientation / Consciousness: awake HEENT normocephalic and moist oral mucous membranes Eyes PERRL, EOMs intact bilaterally and conjunctivae normal Neck no lymphadenopathy Resp normal respiratory effort and clear to auscultation bilaterally Cardio regular rate, regular rhythm and no murmurs Peripheral Pulses: pulses 2+ throughout GI normal to inspection, nondistended, normoactive bowel sounds, non-tender and non-distended Extremity normal to inspection Skin no rashes or lesions noted Lesions: no lesions Rashes: no rashes Trauma: no lacerations or abrasions Neuro CN's II-XII intact bilaterally, no focal motor deficits, no sensory deficits noted and deep tendon reflexes 2+ bilaterally Psych mental status grossly normal and affect normal Assessment & Plan Assessment/Plan (1) Alcohol dependence: PLAN: 1. Acute alcohol withdrawal, chronic alcohol dependence- Medical stabilization per protocol. Phenobarb taper, thiamine, folic acid, multivitamin supplementation. [facility] protocol. Addiction medicine consult. 2. Hypokalemia, hypomagnesia- replace per protocol, trend BMP, mag. 3. Alcoholic hepatitis-appears chronic. 4.Hypertension-stable, continue home amlodipine, lisinopril, metoprolol regimen. 5. Hyperlipidemia-continue statin. 6. Bipolar disorder/depression/anxiety- bupropion, escitalopram, trazodone. Previously on Abilify which he states he is no longer taking. 7. GEMRANIA-noncompliant with CPAP. 8. GERD-continue PPI. DVT prophylaxis-low risk, not indicated This patient was seen by REMI Evans under the supervision of Dr. Escobar. Documented by User: Dr. Charly Escobar MD 05/02/21 11:29 Objective Data Lab / Micro Data Result Diagrams: 04/30/21 16:25 05/02/21 05:10 Charges/Coding Addendum Addendum: Dr. Escobar: I personally reviewed the chart and examined the patient, and agree with the above findings. 56-year-old male presenting for detox. He struggles with alcohol addiction and he has had several admissions in the last couple months related to withdrawal. His last drink was this afternoon and he normally drinks about 1/5 of vodka. He states that he had a psychiatrist helping him manage his depression and has been making some active changes in his medications recently. He is also see is [facility] as an outpatient for behavioral health and he states that he had wanted to go into the intensive outpatient prior to his last time being here for detox however there was a delay in getting back to him of about 3 weeks and in that point he states that he relapsed and was in here for detox again. Potassium in the ER was 2.7, he was replaced with 60 mEq p.o., this will be rechecked in the morning along with magnesium and phosphorus. We will put him on a phenobarb taper as well as as needed Ativan given his history of DTs. 05/01/2021: Seems to be struggling and taking his Ativan more like scheduled versus as needed. Will add scheduled Librium and taper as necessary to prevent him from going to DTs if possible. We will have him follow-up with [facility], the last time he left [facility] secondary to wanting the if it is for tox for his daughter's wedding though he would not be able to go if he was still drunk. Because he left AMA he did not qualify to go to the residential treatment that was being set up for him at that time. Magnesium this morning was 0.6. He was replaced with 4 g and will recheck in the morning. 05/02/2021: Had hallucinations overnight, will transition his Librium to 25 3 times daily for 3 doses and continue with as needed Ativan. Continue with the phenobarb taper as well. Magnesium today is 1.6, will give 2 more grams of magnesium and then Lasix potassium as well. Follow-up with [facility] tomorrow for discharge planning Visit Charges Inpatient E&M: 11450 Subs Hosp L2
[2021-05-02] MEDS: Potassium Chloride Oral Tablet 20 MEQ 40 MEQ PO (11:55)
[2021-05-02] MEDS: Loperamide 2 MG Capsule PO ×2 (11:55→20:04)
[2021-05-02] MEDS: chlordiazePOXIDE 25 MG Capsule PO ×2 (14:43→22:16)
[2021-05-02 14:51] VITALS: BP 113/75; PULSE 80; RESP 14; TEMP 36.6; O2SAT 96
[2021-05-02] MEDS: traZODone 100 MG Tablet PO (20:04)
[2021-05-02] MEDS: Atorvastatin Calcium 40 MG Tablet PO (20:05)
[2021-05-02] MEDS: Escitalopram Oxalate 10 MG Tablet PO (20:05)
[2021-05-02 20:14] VITALS: BP 112/62; PULSE 79; RESP 16; TEMP 36.6; O2SAT 95
[2021-05-02] MEDS: Dicyclomine 10 MG Capsule 20 MG PO (22:16)
[2021-05-03] MEDS: LORazepam 1 MG Tablet 2 MG PO (00:52)
[2021-05-03] MEDS: Phenobarbital 32.4 MG Tablet PO ×3 (03:39→20:11)
[2021-05-03] MEDS: hydrOXYzine PAM 25 MG Capsule 50 MG PO (03:39)
[2021-05-03 03:40] VITALS: BP 137/90; PULSE 73; RESP 18; TEMP 36.2; O2SAT 96
[2021-05-03] MEDS: Gabapentin 300 MG Capsule PO (05:27)
[2021-05-03] MEDS: chlordiazePOXIDE 25 MG Capsule PO ×3 (05:27→22:41)
[2021-05-03 07:17] LABS: Anion Gap 7 (5-15); BUN 7 mg/dL (7-18); BUN/Creat Ratio 10.3 RATIO (10-20); Calcium,Total 7.3 mg/dL (8.5-10.1); Chloride 105 mmol/L (98-107); Creatinine, Serum 0.68 mg/dL (0.70-1.30); EST Glomerular Filtration Rate 127 mL/min (>60); Est Glom Filt Rate - Afr Amer 154 mL/min (>60); Estimated Creatinine Clearance 108.16 ml/min; Glucose 91 mg/dL (74-106); Potassium 3.5 mmol/L (3.5-5.1); Sodium Level 138 mmol/L (136-145)
[2021-05-03 07:57] VITALS: BP 119/69; PULSE 75; RESP 16; TEMP 36.3; O2SAT 95
[2021-05-03] MEDS: Lisinopril 20 MG Tablet PO (08:22)
[2021-05-03] MEDS: Thiamine Hydrochloride 100 MG Tablet PO (08:22)
[2021-05-03] MEDS: amLODIPine 5 MG Tablet PO (08:22)
[2021-05-03] MEDS: buPROPion (XL) 300 MG TABLET.XL PO (08:22)
[2021-05-03] MEDS: Folic Acid 1 MG Tablet PO (08:22)
[2021-05-03 08:23] VITALS: PULSE 75
[2021-05-03] MEDS: Metoprolol(XL)Succ 25 MG Tablet PO (08:23)
[2021-05-03] MEDS: Pantoprazole Sodium 20 MG Tablet PO (08:23)
--- NOTE | 2021-05-03 09:36 | PN.HOSP_ITS ---
Documented by User: Kathleen Larson NET DEVELOPER SOFTWARE ENGINEER C, NET DEVELOPER SOFTWARE ENGINEER C-C 05/03/21 09:40 Subjective Subjective Patient seen and examined. More confused this morning, appears restless. Attempting to get out of bed. Stating he needs 20 bucks from his bag. Remains tremorous. Objective Data Objective Data Vital Signs: Vital Signs Temp Pulse Resp BP Pulse Ox 97.3 F L 75 16 119/69 95 05/03/21 07:57 05/03/21 08:23 05/03/21 07:57 05/03/21 07:57 05/03/21 07:57 Oxygen Delivery Method Room Air Weight: 169 lb 0.004 oz Body Mass Index (BMI) 27.2 Intake & Output: Intake and Output for Last 24 Hours 05/01/21 05/02/21 05/03/21 23:59 23:59 23:59 Intake Total 100 / 100 138.75 / 138.75 Output Total 850 / 850 Balance -750 / -750 138.75 / 138.75 Lab / Micro Data Result Diagrams: 04/30/21 16:25 05/03/21 04:45 Labs: Laboratory Results - last 24 hr 05/03/21 04:45: Sodium 138, Potassium 3.5, Chloride 105, Carbon Dioxide 26.0, Anion Gap 7, BUN 7, Creatinine 0.68 L, Estim Creat Clear Calc 108.16, Est GFR (MDRD) Af Amer 154, Est GFR (MDRD) Non-Af 127, BUN/Creatinine Ratio 10.3, Glucose 91, Calcium 7.3 L Micro: Microbiology 04/30/21 16:31 Nasal Secretion SARS-CoV-2 Antigen (Rapid) - Final Physical Exam Const alert Constitutional Narrative: Confused, restless, tremorous HEENT normocephalic Mouth: dry mucous membranes Eyes PERRL, EOMs intact bilaterally and conjunctivae normal Neck no lymphadenopathy Resp normal respiratory effort and clear to auscultation bilaterally Cardio regular rate, regular rhythm and no murmurs Peripheral Pulses: pulses 2+ throughout GI normal to inspection, nondistended, normoactive bowel sounds, non-tender and non-distended Extremity normal to inspection Skin no rashes or lesions noted Lesions: no lesions Rashes: no rashes Trauma: no lacerations or abrasions Neuro CN's II-XII intact bilaterally, no focal motor deficits, no sensory deficits noted and deep tendon reflexes 2+ bilaterally Psych Mood & Affect: anxious Assessment & Plan Assessment/Plan (1) Alcohol dependence: PLAN: 1. Acute alcohol withdrawal, chronic alcohol dependence- Medical stabilization per protocol. Phenobarb taper, thiamine, folic acid, multivitamin supplementation. Librium taper added given significant withdrawal symptoms. CI WA/Ativan protocol. Addiction medicine consult. 2. Hypokalemia, hypomagnesia- replaced per protocol, resolved. 3. Alcoholic hepatitis-appears chronic. 4.Hypertension-stable, continue home amlodipine, lisinopril, metoprolol regimen. 5. Hyperlipidemia-continue statin. 6. Bipolar disorder/depression/anxiety- bupropion, escitalopram, trazodone. Previously on Abilify which he states he is no longer taking. 7. GERMANIA-noncompliant with CPAP. 8. GERD-continue PPI. DVT prophylaxis-low risk, not indicated This patient was seen by REMI Evans under the supervision of Dr. Escobar. Documented by User: Dr. Charly Escobar MD 05/03/21 11:56 Objective Data Lab / Micro Data Result Diagrams: 04/30/21 16:25 05/03/21 04:45 Charges/Coding Addendum Addendum: Dr. Escobar: I personally reviewed the chart and examined the patient, and agree with the above findings. 56-year-old male presenting for detox. He struggles with alcohol addiction and he has had several admissions in the last couple months related to withdrawal. His last drink was this afternoon and he normally drinks about 1/5 of vodka. He states that he had a psychiatrist helping him manage his depression and has been making some active changes in his medications recently. He is also see is [facility] as an outpatient for behavioral health and he states that he had wanted to go into the intensive outpatient prior to his last time being here for detox however there was a delay in getting back to him of about 3 weeks and in that point he states that he relapsed and was in here for detox again. Potassium in the ER was 2.7, he was replaced with 60 mEq p.o., this will be rechecked in the morning along with magnesium and phosphorus. We will put him on a phenobarb taper as well as as needed Ativan given his history of DTs. 05/01/2021: Seems to be struggling and taking his Ativan more like scheduled versus as needed. Will add scheduled Librium and taper as necessary to prevent him from going to DTs if possible. We will have him follow-up with [facility], the last time he left AMA secondary to wanting the if it is for tox for his daughter's wedding though he would not be able to go if he was still drunk. Because he left AMA he did not qualify to go to the residential treatment that was being set up for him at that time. Magnesium this morning was 0.6. He was replaced with 4 g and will recheck in the morning. 05/02/2021: Had hallucinations overnight, will transition his Librium to 25 3 times daily for 3 doses and continue with as needed Ativan. Continue with the phenobarb taper as well. Magnesium today is 1.6, will give 2 more grams of magnesium and then Lasix potassium as well. Follow-up with 180 tomorrow for discharge planning 05/03/2021: Continues to have hallucinations, will keep him at Librium 25 mg 3 times daily as well as as needed Ativan. We will also continue with the phenobarb taper. Will need to be evaluate by 180 for discharge planning Visit Charges Inpatient E&M: 00210 Subs Hosp L2
[2021-05-03 14:00] VITALS: BP 110/70; PULSE 81; RESP 16; TEMP 36.3; O2SAT 92
--- NOTE | 2021-05-03 14:58 | CASEMGMT ---
Omid from [facility] is to come see pt today, however pt has been sleeping throughout most of the day today. Someone from [facility] did try to speak with pt yesterday as well and pt was not able to participate in the conversation. CLAUDE Kraus
--- NOTE | 2021-05-03 16:07 | ADDICTION ---
TW went to [facility] [place] to attempt to meet with Pt. TW was advised by nursing staff on floor that he was still incoherent and was asked to come back the next day. TW will attempt to meet with Pt again tomorrow 05/04/2021.
--- NOTE | 2021-05-03 17:26 | NURSING ---
#16 f/c inserted w/ 10 cc balloon after bladderscan of 0ver 999-immediately drained 800 and still draining pt tolerated well and seems to be resting better at this time-dr fernandez made aware
[2021-05-03 20:05] VITALS: BP 123/71; PULSE 85; RESP 18; TEMP 36.8; O2SAT 96
[2021-05-03] MEDS: Tamsulosin HCl 0.4 MG Capsule PO (20:11)
[2021-05-03] MEDS: Atorvastatin Calcium 40 MG Tablet PO (22:41)
[2021-05-03] MEDS: Escitalopram Oxalate 10 MG Tablet PO (22:41)
[2021-05-04 03:03] VITALS: BP 116/77; PULSE 81; RESP 18; TEMP 36.6; O2SAT 96
[2021-05-04] MEDS: Phenobarbital 32.4 MG Tablet PO ×4 (03:05→20:39)
--- NOTE | 2021-05-04 05:40 | NURSING ---
straight cath pt per order. this is the pt's 2nd straight cath.
[2021-05-04] MEDS: chlordiazePOXIDE 25 MG Capsule PO ×2 (05:46→19:25)
[2021-05-04] MEDS: Folic Acid 1 MG Tablet PO (08:37)
[2021-05-04] MEDS: Thiamine Hydrochloride 100 MG Tablet PO (08:37)
[2021-05-04] MEDS: Pantoprazole Sodium 20 MG Tablet PO (08:38)
[2021-05-04] MEDS: amLODIPine 5 MG Tablet PO (08:38)
[2021-05-04] MEDS: buPROPion (XL) 300 MG TABLET.XL PO (08:39)
[2021-05-04] MEDS: Lisinopril 20 MG Tablet PO (08:39)
[2021-05-04 08:46] VITALS: PULSE 86
[2021-05-04] MEDS: Metoprolol(XL)Succ 25 MG Tablet PO (08:46)
[2021-05-04 08:49] VITALS: BP 147/90; PULSE 76; RESP 18; TEMP 36.6; O2SAT 97
[2021-05-04 10:00] VITALS: BP 147/90; PULSE 86; RESP 18; TEMP 36.6; O2SAT 96
--- NOTE | 2021-05-04 11:06 | CASEMGMT ---
Pt had mentioned to the RN that he was to get medications delivered from [facility] to his home tomorrow, and is concerned as he will not be there to receive them. SW called [facility]([phone]), let them know that pt is not home to receive his medications. Pt can call to have the medications delivered once he is home. SW inquired if he can have the medications delivered to [facility] where he is going, as per [facility] he can, someone just needs to call. SYED spoke w/pt, let him know SW called [facility] and put a hold on his medications, and he should call once he gets to [facility] to have the medications delivered there. SYED wrote down the information for pt including the phone number for [facility]. SYED remains available for any further assist. CLAUDE Kraus
--- NOTE | 2021-05-04 11:18 | PCM.PN.HOSP ---
Documented by User: Kathleen Larson NP, COMMUNITY HEALTH PROGRAM COORDINATOR-C 05/04/21 11:23 Subjective Subjective Patient seen and examined. More alert today. Continues to have tremors. Nursing reports patient is currently a two-person assist due to weakness. He denies other withdrawal symptoms. Objective Data Objective Data Vital Signs: Vital Signs Temp Pulse Resp BP Pulse Ox 97.9 F 86 18 147/90 H 96 05/04/21 10:00 05/04/21 10:00 05/04/21 10:00 05/04/21 10:00 05/04/21 10:00 Oxygen Delivery Method Room Air Weight: 169 lb 0.004 oz Body Mass Index (BMI) 27.2 Intake & Output: Intake and Output for Last 24 Hours 05/02/21 05/03/21 05/04/21 23:59 23:59 23:59 Intake Total 138.75 / 138.75 0 / 0 600 / 600 Output Total 700 / 700 Balance 138.75 / 138.75 0 / 0 -100 / -100 Lab / Micro Data Result Diagrams: 04/30/21 16:25 05/03/21 04:45 Micro: Microbiology 04/30/21 16:31 Nasal Secretion SARS-CoV-2 Antigen (Rapid) - Final Physical Exam Const alert and no apparent distress Constitutional Narrative: Upper extremity tremors Orientation / Consciousness: awake, oriented to person, oriented to place and oriented to time HEENT normocephalic Mouth: dry mucous membranes Eyes PERRL, EOMs intact bilaterally and conjunctivae normal Neck no lymphadenopathy Resp normal respiratory effort and clear to auscultation bilaterally Cardio regular rate, regular rhythm and no murmurs Peripheral Pulses: pulses 2+ throughout GI normal to inspection, nondistended, normoactive bowel sounds, non-tender and non-distended Extremity normal to inspection Skin no rashes or lesions noted Lesions: no lesions Rashes: no rashes Trauma: no lacerations or abrasions Neuro CN's II-XII intact bilaterally, no focal motor deficits, no sensory deficits noted and deep tendon reflexes 2+ bilaterally Psych mental status grossly normal and affect normal Assessment & Plan Assessment/Plan (1) Alcohol dependence: PLAN: 1. Acute alcohol withdrawal, chronic alcohol dependence- Medical stabilization per protocol. Phenobarb taper, thiamine, folic acid, multivitamin supplementation. Librium taper added given significant withdrawal symptoms. CIWA/Ativan protocol. Addiction medicine consult. 2. Hypokalemia, hypomagnesia- replaced per protocol, resolved. 3. Alcoholic hepatitis-appears chronic. 4.Hypertension-stable, continue home amlodipine, lisinopril, metoprolol regimen. 5. Hyperlipidemia-continue statin. 6. Bipolar disorder/depression/anxiety- bupropion, escitalopram, trazodone. Previously on Abilify which he states he is no longer taking. 7. GERMANIA-noncompliant with CPAP. 8. GERD-continue PPI. DVT prophylaxis-low risk, not indicated Discharge plan: [facility] when medically stable, addiction medicine consult pending. This patient was seen by REMI Evans under the supervision of Dr. Escobar. Documented by User: Dr. Charly Escobar MD 05/04/21 11:27 Objective Data Lab / Micro Data Result Diagrams: 04/30/21 16:25 05/03/21 04:45 Charges/Coding Addendum Addendum: Dr. Escobar: I personally reviewed the chart and examined the patient, and agree with the above findings. 56-year-old male presenting for detox. He struggles with alcohol addiction and he has had several admissions in the last couple months related to withdrawal. His last drink was this afternoon and he normally drinks about 1/5 of vodka. He states that he had a psychiatrist helping him manage his depression and has been making some active changes in his medications recently. He is also see is [facility] as an outpatient for behavioral health and he states that he had wanted to go into the intensive outpatient prior to his last time being here for detox however there was a delay in getting back to him of about 3 weeks and in that point he states that he relapsed and was in here for detox again. Potassium in the ER was 2.7, he was replaced with 60 mEq p.o., this will be rechecked in the morning along with magnesium and phosphorus. We will put him on a phenobarb taper as well as as needed Ativan given his history of DTs. 05/01/2021: Seems to be struggling and taking his Ativan more like scheduled versus as needed. Will add scheduled Librium and taper as necessary to prevent him from going to DTs if possible. We will have him follow-up with [facility], the last time he left AMA secondary to wanting the if it is for tox for his daughter's wedding though he would not be able to go if he was still drunk. Because he left AMA he did not qualify to go to the residential treatment that was being set up for him at that time. Magnesium this morning was 0.6. He was replaced with 4 g and will recheck in the morning. 05/02/2021: Had hallucinations overnight, will transition his Librium to 25 3 times daily for 3 doses and continue with as needed Ativan. Continue with the phenobarb taper as well. Magnesium today is 1.6, will give 2 more grams of magnesium and then Lasix potassium as well. Follow-up with 180 tomorrow for discharge planning 05/03/2021: Continues to have hallucinations, will keep him at Librium 25 mg 3 times daily as well as as needed Ativan. We will also continue with the phenobarb taper. Will need to be evaluate by 180 for discharge planning 05/04/2021: He does appear to be improving, recognize that he has meds being delivered tomorrow. Can try to decrease his Librium from 3 times daily to twice daily. He has not needed any Ativan since around 1 AM. Will need to follow-up with [facility] for discharge planning and hopefully that can happen today as he seems to be more alert than he has been. Visit Charges Inpatient E&M: 73500 Subs Hosp L2
[2021-05-04] MEDS: Tamsulosin HCl 0.4 MG Capsule PO (14:58)
[2021-05-04 15:22] VITALS: BP 138/90; PULSE 87; RESP 18; TEMP 36.6; O2SAT 99
[2021-05-04] MEDS: 0.9% Saline Lock 10 ML Syringe IV (20:40)
[2021-05-04 21:35] VITALS: BP 136/76; PULSE 78; RESP 16; TEMP 36.6; O2SAT 95
[2021-05-04] MEDS: Atorvastatin Calcium 40 MG Tablet PO (21:36)
[2021-05-04] MEDS: Escitalopram Oxalate 10 MG Tablet PO (21:36)
--- NOTE | 2021-05-05 02:37 | NURSING ---
bladder scan for >999. inserted hdz.
[2021-05-05 05:00] VITALS: BP 145/90; PULSE 85; RESP 18; TEMP 36.6; O2SAT 97
[2021-05-05 08:10] VITALS: BP 143/91; PULSE 80; RESP 18; TEMP 36.6; O2SAT 99
[2021-05-05 08:13] VITALS: BP 143/91; PULSE 80
[2021-05-05] MEDS: buPROPion (XL) 300 MG TABLET.XL PO (08:13)
[2021-05-05] MEDS: Metoprolol(XL)Succ 25 MG Tablet PO (08:13)
[2021-05-05] MEDS: Pantoprazole Sodium 20 MG Tablet PO (08:13)
[2021-05-05] MEDS: Lisinopril 20 MG Tablet PO (08:13)
[2021-05-05] MEDS: chlordiazePOXIDE 25 MG Capsule PO (08:13)
[2021-05-05] MEDS: Folic Acid 1 MG Tablet PO (08:13)
[2021-05-05] MEDS: amLODIPine 5 MG Tablet PO (08:14)
[2021-05-05] MEDS: Thiamine Hydrochloride 100 MG Tablet PO (08:14)
--- NOTE | 2021-05-05 11:05 | PCM.PN.HOSP ---
Documented by User: Kathleen Larson NP, BOX LINING MACHINE FEEDER-C 05/05/21 11:10 Subjective Subjective Patient seen and examined. Remains confused, upper extremity tremors noted. Remains weak. Patient has a Andrea catheter in place due to retention. Awaiting addiction medicine consult. Objective Data Objective Data Vital Signs: Vital Signs Temp Pulse Resp BP Pulse Ox 97.8 F 80 18 143/91 H 99 05/05/21 08:10 05/05/21 08:13 05/05/21 08:10 05/05/21 08:13 05/05/21 08:10 Oxygen Delivery Method Room Air Weight: 169 lb 1.513 oz Body Mass Index (BMI) 27.2 Intake & Output: Intake and Output for Last 24 Hours 05/03/21 05/04/21 05/05/21 23:59 23:59 23:59 Intake Total 0 / 0 950 / 950 Output Total 950 / 950 1800 / 1800 Balance 0 / 0 0 / 0 -1800 / -1800 Lab / Micro Data Result Diagrams: 04/30/21 16:25 05/03/21 04:45 Micro: Microbiology 04/30/21 16:31 Nasal Secretion SARS-CoV-2 Antigen (Rapid) - Final Physical Exam Const alert Constitutional Narrative: Upper extremity tremors Orientation / Consciousness: confused HEENT normocephalic Mouth: dry mucous membranes Eyes PERRL, EOMs intact bilaterally and conjunctivae normal Neck no lymphadenopathy Resp normal respiratory effort and clear to auscultation bilaterally Cardio regular rate, regular rhythm and no murmurs Peripheral Pulses: pulses 2+ throughout GI normal to inspection, nondistended, normoactive bowel sounds, non-tender and non-distended Extremity normal to inspection Skin no rashes or lesions noted Lesions: no lesions Rashes: no rashes Trauma: no lacerations or abrasions Neuro CN's II-XII intact bilaterally, no focal motor deficits, no sensory deficits noted and deep tendon reflexes 2+ bilaterally Psych Activity / Motor Behavior: restless Assessment & Plan Assessment/Plan (1) Alcohol dependence: PLAN: 1. Acute alcohol withdrawal, chronic alcohol dependence- Medical stabilization per protocol. Phenobarb taper, thiamine, folic acid, multivitamin supplementation. Librium taper added given significant withdrawal symptoms. CIWA/Ativan protocol. Addiction medicine consult. Patient requiring extended medical stabilization protocol due to significant withdrawal/ongoing symptoms. 2. Hypokalemia, hypomagnesia- replaced per protocol, resolved. 3. Alcoholic hepatitis-appears chronic. 4.Hypertension-stable, continue home amlodipine, lisinopril, metoprolol regimen. 5. Hyperlipidemia-continue statin. 6. Bipolar disorder/depression/anxiety- bupropion, escitalopram, trazodone. Previously on Abilify which he states he is no longer taking. Recommend resuming Abilify at discharge. 7. GERMANIA-noncompliant with CPAP. 8. GERD-continue PPI. DVT prophylaxis-low risk, not indicated Discharge plan: [facility] when medically stable, addiction medicine consult pending. This patient was seen by REMI Evans under the supervision of Dr. Escobar. Documented by User: Dr. Charly Escobar MD 05/05/21 14:21 Objective Data Lab / Micro Data Result Diagrams: 04/30/21 16:25 05/03/21 04:45 Charges/Coding Addendum Addendum: Dr. Escobar: I personally reviewed the chart and examined the patient, and agree with the above findings. 56-year-old male presenting for detox. He struggles with alcohol addiction and he has had several admissions in the last couple months related to withdrawal. His last drink was this afternoon and he normally drinks about 1/5 of vodka. He states that he had a psychiatrist helping him manage his depression and has been making some active changes in his medications recently. He is also see is [facility] as an outpatient for behavioral health and he states that he had wanted to go into the intensive outpatient prior to his last time being here for detox however there was a delay in getting back to him of about 3 weeks and in that point he states that he relapsed and was in here for detox again. Potassium in the ER was 2.7, he was replaced with 60 mEq p.o., this will be rechecked in the morning along with magnesium and phosphorus. We will put him on a phenobarb taper as well as as needed Ativan given his history of DTs. 05/01/2021: Seems to be struggling and taking his Ativan more like scheduled versus as needed. Will add scheduled Librium and taper as necessary to prevent him from going to DTs if possible. We will have him follow-up with [facility], the last time he left AMA secondary to wanting the if it is for tox for his daughter's wedding though he would not be able to go if he was still drunk. Because he left AMA he did not qualify to go to the residential treatment that was being set up for him at that time. Magnesium this morning was 0.6. He was replaced with 4 g and will recheck in the morning. 05/02/2021: Had hallucinations overnight, will transition his Librium to 25 3 times daily for 3 doses and continue with as needed Ativan. Continue with the phenobarb taper as well. Magnesium today is 1.6, will give 2 more grams of magnesium and then Lasix potassium as well. Follow-up with 180 tomorrow for discharge planning 05/03/2021: Continues to have hallucinations, will keep him at Librium 25 mg 3 times daily as well as as needed Ativan. We will also continue with the phenobarb taper. Will need to be evaluate by [facility] for discharge planning 05/04/2021: He does appear to be improving, recognize that he has meds being delivered tomorrow. Can try to decrease his Librium from 3 times daily to twice daily. He has not needed any Ativan since around 1 AM. Will need to follow-up with [facility] for discharge planning and hopefully that can happen today as he seems to be more alert than he has been. 05/05/21: Doing better today, will decrease his Librium to twice daily and will extend his phenobarbital taper. Still awaiting evaluation by 180 for outpatient discharge planning. We will check a BMP and mag in the morning as he was low on his potassium and magnesium on admission. Visit Charges Inpatient E&M: 94215 Subs Hosp L2
[2021-05-05] MEDS: hydrOXYzine PAM 25 MG Capsule 50 MG PO (12:08)
[2021-05-05] MEDS: Tamsulosin HCl 0.4 MG Capsule PO ×2 (12:09→21:27)
[2021-05-05] MEDS: Phenobarbital 20 MG/5 ML UDC PO ×2 (13:15→21:27)
--- NOTE | 2021-05-05 14:29 | CASEMGMT ---
Social Work SW spoke with pt addiction therapist Lucy who states that pt has been denied entrance at [facility] as his medical condition is too complicated for residential treatment. SW met with pt to discuss discharge plan. Upon entrance pt told SW he received bad news, he was denied at [facility]. Pt is alert and oriented during conversation. Pt stating that prior to admission to the hospital for detox, he was able to care for self and was independent in areas. Pt does admit that since hospitalization he has been very weak. SW spoke with pt regarding possible need for SNF for short term rehab. Pt is uncertain if he would be agreeable to this but was willing to discuss options with SW. List of SNF providers including quality and resource use data and consistent with the patient's preferred geographic region, medical needs and insurance network. provided to pt. Therapy notified and will see pt to assess for need for SNF. SW will follow up for discharge planning. SYED Arana
[2021-05-05 15:25] VITALS: BP 151/93; PULSE 86; RESP 18; TEMP 36.6; O2SAT 100
[2021-05-05 21:00] VITALS: BP 139/79; PULSE 79; RESP 16; TEMP 36.7; O2SAT 97
[2021-05-05] MEDS: Atorvastatin Calcium 40 MG Tablet PO (21:26)
[2021-05-05] MEDS: Escitalopram Oxalate 10 MG Tablet PO (21:26)
[2021-05-06 02:45] VITALS: BP 151/78; PULSE 73; RESP 16; TEMP 36.2; O2SAT 98
[2021-05-06 07:10] LABS: Anion Gap 7 (5-15); BUN 8 mg/dL (7-18); BUN/Creat Ratio 11.5 RATIO (10-20); Calcium,Total 8.9 mg/dL (8.5-10.1); Chloride 101 mmol/L (98-107); EST Glomerular Filtration Rate 125 mL/min (>60); Est Glom Filt Rate - Afr Amer 151 mL/min (>60); Estimated Creatinine Clearance 105.07 ml/min; Glucose 111 mg/dL (74-106); Magnesium 1.7 mg/dL (1.6-2.6); Sodium Level 135 mmol/L (136-145)
[2021-05-06 09:20] VITALS: BP 147/89; PULSE 84; RESP 18; TEMP 36.6; O2SAT 98
[2021-05-06] MEDS: buPROPion (XL) 300 MG TABLET.XL PO (09:20)
[2021-05-06] MEDS: Pantoprazole Sodium 20 MG Tablet PO (09:20)
[2021-05-06] MEDS: Lisinopril 20 MG Tablet PO (09:20)
[2021-05-06] MEDS: Tamsulosin HCl 0.4 MG Capsule PO ×2 (09:20→21:57)
[2021-05-06] MEDS: Thiamine Hydrochloride 100 MG Tablet PO (09:20)
[2021-05-06 09:21] VITALS: PULSE 84
[2021-05-06] MEDS: Folic Acid 1 MG Tablet PO (09:21)
[2021-05-06] MEDS: Metoprolol(XL)Succ 25 MG Tablet PO (09:21)
[2021-05-06] MEDS: amLODIPine 5 MG Tablet PO (09:21)
[2021-05-06] MEDS: Phenobarbital 20 MG/5 ML UDC PO ×2 (09:26→21:58)
[2021-05-06] MEDS: chlordiazePOXIDE 25 MG Capsule PO (09:26)
--- NOTE | 2021-05-06 11:30 | CASEMGMT ---
Social Work SW met with pt and discussed discharge plan. Pt stating that he is feeling better this morning and was able to get up and around in room. Pt does not feel he will need a SNF. Pt planning to return home. SW stressed the importance of followup for substance use. Lucy, addiction therapist, updated on pt wishes to return home. SW will remain available if further needs arise. SYED See
--- NOTE | 2021-05-06 12:38 | PCM.PN.HOSP ---
Documented by User: Igor HORVATH 05/06/21 12:47 Subjective Subjective Patient is a 56-year-old male comfortably resting in chair, alert and orient x3. Patient reports still feeling tremulous he reports minor withdrawal symptoms, although these are improved. Denies development of any new symptoms overnight. Does not appear to be in acute distress. Objective Data Objective Data Vital Signs: Vital Signs Temp Pulse Resp BP Pulse Ox 97.9 F 84 18 147/89 H 98 05/06/21 09:20 05/06/21 09:21 05/06/21 09:20 05/06/21 09:20 05/06/21 09:20 Oxygen Delivery Method Room Air Weight: 169 lb 1.513 oz Body Mass Index (BMI) 27.2 Intake & Output: Intake and Output for Last 24 Hours 05/04/21 05/05/21 05/06/21 23:59 23:59 23:59 Intake Total 950 / 950 600 / 600 Output Total 950 / 950 1800 / 2900 1900 / 1900 Balance 0 / 0 -1200 / -2300 -1900 / -1900 Lab / Micro Data Result Diagrams: 04/30/21 16:25 05/06/21 05:59 Labs: Laboratory Results - last 24 hr 05/06/21 05:59: Sodium 135 L, Potassium 4.0, Chloride 101, Carbon Dioxide 27.0, Anion Gap 7, BUN 8, Creatinine 0.70, Estim Creat Clear Calc 105.07, Est GFR (MDRD) Af Amer 151, Est GFR (MDRD) Non-Af 125, BUN/Creatinine Ratio 11.5, Glucose 111 H, Calcium 8.9, Magnesium 1.7 Micro: Microbiology 04/30/21 16:31 Nasal Secretion SARS-CoV-2 Antigen (Rapid) - Final Physical Exam Const alert, oriented x3 and no apparent distress HEENT head/scalp atraumatic, moist oral mucous membranes and oropharynx normal Eyes PERRL, EOMs intact bilaterally and conjunctivae normal Neck no lymphadenopathy, supple and no JVD Resp normal respiratory effort, no retractions, no use of accessory muscles and clear to auscultation bilaterally Cardio regular rate, regular rhythm, no murmurs and no JVD GI normal to inspection, nondistended, normoactive bowel sounds, soft to palpation and non-tender Extremity Extremity Narrative: Mild tremors about the upper extremities. Skin no rashes or lesions noted, no wounds, skin turgor normal and no jaundice Neuro CN's II-XII intact bilaterally Psych Mood & Affect: anxious Assessment & Plan Assessment/Plan (1) Alcohol dependence: (2) Acute hypokalemia: (3) Polysubstance dependence: (4) Alcohol abuse: PLAN: Day 6 Discharge planning: Possible discharge to [facility] when medically stable, social work and addiction medicine following. 1. Acute alcohol withdrawal, chronic alcohol dependence Patient reports feeling unsteady on his feet and still endorses mild tremors. Continue phenobarb and Librium taper, thiamine, folic acid and multivitamin supplementation. As needed medications ordered. Discharge plan as above. 2) hypokalemia Resolved, currently 4.0. 3) alcoholic hepatitis Chronic, stable. 4) HTN Stable, continue amlodipine, lisinopril and metoprolol. 5) hyperlipidemia Continue statin. 6) anxiety, depression, bipolar disorder Continue bupropion, escitalopram and trazodone. Possibly resuming Abilify at discharge. 7) obstructive sleep apnea Prescribed CPAP, although patient is noncompliant. 8) GERD Continue PPI. DVT prophylaxis - low risk, not indicated. Patient seen by Igor Bains PA-C, under the supervision of Dr. Escobar. Documented by User: Dr. Charly Escobar MD 05/06/21 16:29 Objective Data Lab / Micro Data Result Diagrams: 04/30/21 16:25 05/06/21 05:59 Charges/Coding Addendum Addendum: Dr. Escobar: I personally reviewed the chart and examined the patient, and agree with the above findings. 56-year-old male presenting for detox. He struggles with alcohol addiction and he has had several admissions in the last couple months related to withdrawal. His last drink was this afternoon and he normally drinks about 1/5 of vodka. He states that he had a psychiatrist helping him manage his depression and has been making some active changes in his medications recently. He is also see is [facility] as an outpatient for behavioral health and he states that he had wanted to go into the intensive outpatient prior to his last time being here for detox however there was a delay in getting back to him of about 3 weeks and in that point he states that he relapsed and was in here for detox again. Potassium in the ER was 2.7, he was replaced with 60 mEq p.o., this will be rechecked in the morning along with magnesium and phosphorus. We will put him on a phenobarb taper as well as as needed Ativan given his history of DTs. 05/01/2021: Seems to be struggling and taking his Ativan more like scheduled versus as needed. Will add scheduled Librium and taper as necessary to prevent him from going to DTs if possible. We will have him follow-up with [facility], the last time he left AMA secondary to wanting the if it is for tox for his daughter's wedding though he would not be able to go if he was still drunk. Because he left AMA he did not qualify to go to the residential treatment that was being set up for him at that time. Magnesium this morning was 0.6. He was replaced with 4 g and will recheck in the morning. 05/02/2021: Had hallucinations overnight, will transition his Librium to 25 3 times daily for 3 doses and continue with as needed Ativan. Continue with the phenobarb taper as well. Magnesium today is 1.6, will give 2 more grams of magnesium and then Lasix potassium as well. Follow-up with 180 tomorrow for discharge planning 05/03/2021: Continues to have hallucinations, will keep him at Librium 25 mg 3 times daily as well as as needed Ativan. We will also continue with the phenobarb taper. Will need to be evaluate by [facility] for discharge planning 05/04/2021: He does appear to be improving, recognize that he has meds being delivered tomorrow. Can try to decrease his Librium from 3 times daily to twice daily. He has not needed any Ativan since around 1 AM. Will need to follow-up with [facility] for discharge planning and hopefully that can happen today as he seems to be more alert than he has been. 05/05/21: Doing better today, will decrease his Librium to twice daily and will extend his phenobarbital taper. Still awaiting evaluation by 180 for outpatient discharge planning. We will check a BMP and mag in the morning as he was low on his potassium and magnesium on admission. 05/06/2021: Doing better today, unlikely to find a place for residential treatment therefore once completely stable can plan for discharge home and outpatient follow-up. He does not want to go to a detention for rehab after discharge. If he remains stable, can plan for discharge in the morning. Visit Charges Inpatient E&M: 06473 Subs Hosp L2
--- NOTE | 2021-05-06 13:13 | ADDICTION ---
This health underwriter met with PT to conduct ASAM, MSE, AUDIT assessments and to plan for d/c. PT A+Ox4 and participated actively. All assessments completed, faxed to [facility] and placed in PT's chart. PT plans to f/u with individual counselor at [facility] for MAT referral and follow-up counseling services. PT did not indicate a need for transportation post d/c from [facility].
[2021-05-06 15:08] VITALS: BP 117/82; PULSE 83; RESP 17; TEMP 36.9; O2SAT 92
[2021-05-06] MEDS: hydrOXYzine PAM 25 MG Capsule 50 MG PO (17:48)
[2021-05-06 21:47] VITALS: BP 156/73; PULSE 75; RESP 16; TEMP 36.8; O2SAT 96
[2021-05-06] MEDS: Atorvastatin Calcium 40 MG Tablet PO (21:57)
[2021-05-06] MEDS: Escitalopram Oxalate 10 MG Tablet PO (21:57)
[2021-05-06] MEDS: traZODone 100 MG Tablet PO (22:16)
[2021-05-07 02:48] VITALS: BP 122/76; PULSE 77; RESP 17; TEMP 36.4; O2SAT 95
[2021-05-07 08:20] VITALS: BP 120/76; PULSE 76; RESP 16; TEMP 36.9; O2SAT 95
--- NOTE | 2021-05-07 10:08 | PCM.DC ---
Discharge Instructions Diet Discharge Diet: No restrictions Activity Discharge Activity: Return to Normal Activity Weight Bearing Status: Weight bearing as tolerated Dressing / Incision Call your doctor if you observe: Fever of 101 or Higher, Numbness or Tingling, Shortness of breath, Dizziness, Chest pain, Increased palpitations (irregular heartbeat) and Calf discomfort Follow Up Care Please Follow Up With: Primary care provider When: Within the next two weeks. Test Results: Test results from this visit will be discussed in further detail at your follow-up appointment, if applicable. Discharge Plan Admission Admit Date/Time: 04/30/21 17:27 Primary Reason for Your Visit: Alcohol detox Attending Provider: Charly Escobar Primary Care Provider: Enoch Ramirez Discharge Orders/Prescriptions Prescriptions: Continued lisinopril 20 MG tablet 20 mg PO DAILY RF: 0 amlodipine 5 MG tablet 5 mg PO DAILY RF: 0 metoprolol succinate 25 MG tablet extended release 24 hr 25 mg PO DAILY RF: 0 trazodone 100 MG tablet 100 mg PO QHS RF: 0 bupropion HCl 300 MG tablet extended release 24 hr 300 mg PO DAILY RF: 0 atorvastatin 40 mg tablet 40 mg PO QHS RF: 0 folic acid 1 mg Tablet 1 mg PO DAILY RF: 0 escitalopram oxalate 10 mg Tablet 10 mg PO QHS RF: 0 naltrexone 50 mg Tablet 50 mg PO DAILY RF: 0 pantoprazole 20 mg tablet,delayed release (DR/EC) 20 mg PO DAILY RF: 0 Virt-Caps 1 mg capsule 1 cap PO DAILY RF: 0 aripiprazole [Abilify] 5 mg tablet 5 mg PO DAILY RF: 0 Referrals / Follow Up: Enoch Ramirez MD [Primary Care Provider] - Within 2 Weeks Disposition Disposition (needs filled in before D/C Order can be placed): Home, Self Care
[2021-05-07] MEDS: Phenobarbital 20 MG/5 ML UDC PO (10:18)
[2021-05-07 10:19] VITALS: PULSE 100
[2021-05-07] MEDS: Metoprolol(XL)Succ 25 MG Tablet PO (10:19)
[2021-05-07] MEDS: Tamsulosin HCl 0.4 MG Capsule PO (10:19)
[2021-05-07] MEDS: Pantoprazole Sodium 20 MG Tablet PO (10:20)
[2021-05-07] MEDS: Lisinopril 20 MG Tablet PO (10:23)
[2021-05-07] MEDS: Thiamine Hydrochloride 100 MG Tablet PO (10:23)
[2021-05-07] MEDS: amLODIPine 5 MG Tablet PO (10:24)
[2021-05-07] MEDS: Folic Acid 1 MG Tablet PO (10:24)
[2021-05-07] MEDS: buPROPion (XL) 300 MG TABLET.XL PO (10:24)
--- NOTE | 2021-05-07 11:47 | CASEMGMT ---
SHELBY MURO updated by [facility] that patient would be interested in outpatient therapy for rehab. Script received and provided to patient with information for [facility]. RN JINA updated patient and script included in discharge packet. Patient states that he has follow-up with [facility] and will discuss with them. Patient is also requesting walker, hospitalist ALEXANDRU updated. Patient provided list of DME and prefers [employer]. RN JINA will assist with walker setup.
--- NOTE | 2021-05-07 13:02 | DS.PCM_ITS ---
Documented by User: Igor HORVATH 05/07/21 13:07 Providers Date of Admission: 04/30/21 Primary Care Physician: Dr. Enoch Ramirez MD Reason For Visit: etoh Diagnosis Discharge Diagnosis (1) Alcohol dependence: Status: Acute Code(s): F10.20 - Alcohol dependence, uncomplicated (2) Acute hypokalemia: Status: Acute Code(s): E87.6 - Hypokalemia (3) Polysubstance dependence: Status: Acute Code(s): F19.20 - Other psychoactive substance dependence, uncomplicated (4) Alcohol abuse: Status: Acute Code(s): F10.10 - Alcohol abuse, uncomplicated Medications at Discharge Home Medications amlodipine 5 mg PO DAILY 10/15/16 lisinopril 20 mg PO DAILY 10/15/16 metoprolol succinate 25 mg PO DAILY 10/15/16 bupropion HCl 300 mg PO DAILY 07/12/18 trazodone 100 mg PO QHS 07/12/18 atorvastatin 40 mg PO QHS 03/01/21 escitalopram oxalate 10 mg PO QHS 03/01/21 folic acid 1 mg PO DAILY 03/01/21 Virt-Caps 1 cap PO DAILY 04/30/21 aripiprazole [Abilify] 5 mg PO DAILY 04/30/21 naltrexone 50 mg PO DAILY 04/30/21 pantoprazole 20 mg PO DAILY 04/30/21 Hospital Course Summary of Care Provided Minutes Spent on Discharge: 35 Hospital Course: Disposition: Patient to discharge home. Will follow up with [facility] behavioral services for outpatient therapy. 1. Acute alcohol withdrawal, chronic alcohol dependence Patient reports resolution of tremors and other withdrawal symptoms. Will follow up with addiction medicine as above. 2) hypokalemia Resolved, currently 4.0. 3) alcoholic hepatitis Chronic, stable. 4) HTN Stable, continue amlodipine, lisinopril and metoprolol. 5) hyperlipidemia Continue statin. 6) anxiety, depression, bipolar disorder Continue bupropion, escitalopram and trazodone. Possibly resuming Abilify at discharge. 7) obstructive sleep apnea Prescribed CPAP, although patient is noncompliant. 8) GERD Continue PPI. Patient seen by Igor Bains PA-C, under the supervision of Dr. Escobar. Physical Exam Narrative Patient is a 56-year-old male comfortably resting in a chair, alert and orient x3. Patient reports that tremors have improved from yesterday and he generally feels well enough to return home. Denies development of any new symptoms overnight. Denies chest pain, shortness of breath, palpitations, hemoptysis, sputum production, fever, chills, N/V/D. Const alert, oriented x3 and no apparent distress HEENT normocephalic, head/scalp atraumatic and hearing grossly normal bilaterally Eyes PERRL, EOMs intact bilaterally and conjunctivae normal Neck no lymphadenopathy, supple and no JVD Resp normal respiratory effort, no retractions, no use of accessory muscles and clear to auscultation bilaterally Cardio regular rate, regular rhythm, no murmurs and no JVD GI normal to inspection, nondistended, normoactive bowel sounds, soft to palpation, non-tender and non-distended Extremity normal to inspection, full ROM and no clubbing, cyanosis or edema Skin no rashes or lesions noted, no wounds and skin turgor normal Neuro CN's II-XII intact bilaterally Psych affect normal Weight / BMI Weight Weight: 169 lb 1.513 oz Body Mass Index (BMI) 27.2 ABG / Lab / Microbiology Data Result Diagrams: 04/30/21 16:25 05/06/21 05:59 Microbiology: Microbiology 04/30/21 16:31 Nasal Secretion SARS-CoV-2 Antigen (Rapid) - Final D/C Instructions Discharge Diet: No restrictions Weight Bearing Status: Weight bearing as tolerated Call your doctor if you observe: Fever of 101 or Higher, Numbness or Tingling, Shortness of breath, Dizziness, Chest pain, Increased palpitations (irregular heartbeat) and Calf discomfort Please Follow Up With: Primary care provider When: Within the next two weeks. Meaningful Use Info Meaningful Use Diagnoses (Choose all that apply): None applicable Discharge Plan Admission Admit Date/Time: 04/30/21 17:27 Primary Reason for Your Visit: Alcohol detox Attending Provider: Charly Escobar Primary Care Provider: Enoch Ramirez Discharge Orders/Prescriptions Prescriptions: Continued lisinopril 20 MG tablet 20 mg PO DAILY RF: 0 amlodipine 5 MG tablet 5 mg PO DAILY RF: 0 metoprolol succinate 25 MG tablet extended release 24 hr 25 mg PO DAILY RF: 0 trazodone 100 MG tablet 100 mg PO QHS RF: 0 bupropion HCl 300 MG tablet extended release 24 hr 300 mg PO DAILY RF: 0 atorvastatin 40 mg tablet 40 mg PO QHS RF: 0 folic acid 1 mg Tablet 1 mg PO DAILY RF: 0 escitalopram oxalate 10 mg Tablet 10 mg PO QHS RF: 0 naltrexone 50 mg Tablet 50 mg PO DAILY RF: 0 pantoprazole 20 mg tablet,delayed release (DR/EC) 20 mg PO DAILY RF: 0 Virt-Caps 1 mg capsule 1 cap PO DAILY RF: 0 aripiprazole [Abilify] 5 mg tablet 5 mg PO DAILY RF: 0 Referrals / Follow Up: Enoch Ramirez MD [Primary Care Provider] - Within 2 Weeks Disposition Disposition (needs filled in before D/C Order can be placed): Home, Self Care Documented by User: Dr. Charly Escobar MD 05/07/21 16:11 Providers Date of Admission: 04/30/21 Reason For Visit: etoh Medications at Discharge Home Medications amlodipine 5 mg PO DAILY 10/15/16 lisinopril 20 mg PO DAILY 10/15/16 metoprolol succinate 25 mg PO DAILY 10/15/16 bupropion HCl 300 mg PO DAILY 07/12/18 trazodone 100 mg PO QHS 07/12/18 atorvastatin 40 mg PO QHS 03/01/21 escitalopram oxalate 10 mg PO QHS 03/01/21 folic acid 1 mg PO DAILY 03/01/21 Virt-Caps 1 cap PO DAILY 04/30/21 aripiprazole [Abilify] 5 mg PO DAILY 04/30/21 naltrexone 50 mg PO DAILY 04/30/21 pantoprazole 20 mg PO DAILY 04/30/21 ABG / Lab / Microbiology Data Result Diagrams: 04/30/21 16:25 05/06/21 05:59 Discharge Plan Admission Admit Date/Time: 04/30/21 17:27 Primary Reason for Your Visit: Alcohol detox Attending Provider: Charly Escobar Primary Care Provider: Enoch Ramirez Discharge Orders/Prescriptions Prescriptions: Continued lisinopril 20 MG tablet 20 mg PO DAILY RF: 0 amlodipine 5 MG tablet 5 mg PO DAILY RF: 0 metoprolol succinate 25 MG tablet extended release 24 hr 25 mg PO DAILY RF: 0 trazodone 100 MG tablet 100 mg PO QHS RF: 0 bupropion HCl 300 MG tablet extended release 24 hr 300 mg PO DAILY RF: 0 atorvastatin 40 mg tablet 40 mg PO QHS RF: 0 folic acid 1 mg Tablet 1 mg PO DAILY RF: 0 escitalopram oxalate 10 mg Tablet 10 mg PO QHS RF: 0 naltrexone 50 mg Tablet 50 mg PO DAILY RF: 0 pantoprazole 20 mg tablet,delayed release (DR/EC) 20 mg PO DAILY RF: 0 Virt-Caps 1 mg capsule 1 cap PO DAILY RF: 0 aripiprazole [Abilify] 5 mg tablet 5 mg PO DAILY RF: 0 Referrals / Follow Up: Enoch Ramirez MD [Primary Care Provider] - Within 2 Weeks Disposition Disposition (needs filled in before D/C Order can be placed): Home, Self Care Charges/Coding Addendum Addendum: Dr. Escobar: I personally reviewed the chart and examined the patient, and agree with the above findings. 56-year-old male presenting for detox. He struggles with alcohol addiction and he has had several admissions in the last couple months related to withdrawal. His last drink was this afternoon and he normally drinks about 1/5 of vodka. He states that he had a psychiatrist helping him manage his depression and has been making some active changes in his medications recently. He is also see is [facility] as an outpatient for behavioral health and he states that he had wanted to go into the intensive outpatient prior to his last time being here for detox however there was a delay in getting back to him of about 3 weeks and in that point he states that he relapsed and was in here for detox again. Potassium in the ER was 2.7, he was replaced with 60 mEq p.o., this will be rechecked in the morning along with magnesium and phosphorus. We will put him on a phenobarb taper as well as as needed Ativan given his history of DTs. 05/01/2021: Seems to be struggling and taking his Ativan more like scheduled versus as needed. Will add scheduled Librium and taper as necessary to prevent him from going to DTs if possible. We will have him follow-up with [facility], the last time he left AMA secondary to wanting the if it is for tox for his daughter's wedding though he would not be able to go if he was still drunk. Because he left AMA he did not qualify to go to the residential treatment that was being set up for him at that time. Magnesium this morning was 0.6. He was replaced with 4 g and will recheck in the morning. 05/02/2021: Had hallucinations overnight, will transition his Librium to 25 3 times daily for 3 doses and continue with as needed Ativan. Continue with the phenobarb taper as well. Magnesium today is 1.6, will give 2 more grams of magnesium and then Lasix potassium as well. Follow-up with 180 tomorrow for discharge planning 05/03/2021: Continues to have hallucinations, will keep him at Librium 25 mg 3 times daily as well as as needed Ativan. We will also continue with the phenobarb taper. Will need to be evaluate by 180 for discharge planning 05/04/2021: He does appear to be improving, recognize that he has meds being delivered tomorrow. Can try to decrease his Librium from 3 times daily to twice daily. He has not needed any Ativan since around 1 AM. Will need to follow-up with 180 for discharge planning and hopefully that can happen today as he seems to be more alert than he has been. 05/05/21: Doing better today, will decrease his Librium to twice daily and will extend his phenobarbital taper. Still awaiting evaluation by 180 for outpatient discharge planning. We will check a BMP and mag in the morning as he was low on his potassium and magnesium on admission. 05/06/2021: Doing better today, unlikely to find a place for residential treatment therefore once completely stable can plan for discharge home and outpatient follow-up. He does not want to go to a fpc for rehab after discharge. If he remains stable, can plan for discharge in the morning. 05/07/2021:Feels much better today, CIWA's are down to 0. He does not have any home-going requirements in regards to SNF, he would benefit from from some physical therapy and he was discharged with a prescription for that. He was able to urinate after the Andrea was removed on his own. His plan is to follow- up with 180 as an outpatient, he will not be able to go to residential treatment. Discussed with him the plan for discharge today and he expressed understanding of the risk benefits of going home and would like to go home today. Visit Charges Inpatient E&M: 37492 Disch Hosp
[2021-05-07 13:20] VITALS: BP 113/85; PULSE 85; RESP 16; TEMP 37.1; O2SAT 96
== END 2021-05-07 13:39 | disposition home or self-care (01) | DRG 775 ==
LOC: ED 16:32 → MS2 17:43
PROVIDERS: Nurse Practitioner Family; Admitting Provider Family Medicine; Emergency Provider Emergency Medicine; PCP Family Medicine; Visit Provider Family Medicine
DX: F10.239 Alcohol dependence with withdrawal, unspecified (principal); E87.6 Hypokalemia; F15.20 Other stimulant dependence, uncomplicated; Y90.6 Blood alcohol level of 120-199 mg/100 ml; F12.20 Cannabis dependence, uncomplicated; E83.42 Hypomagnesemia; R33.9 Retention of urine, unspecified; K70.10 Alcoholic hepatitis without ascites; I10 Essential (primary) hypertension; E78.5 Hyperlipidemia, unspecified; F31.9 Bipolar disorder, unspecified; F41.9 Anxiety disorder, unspecified; G47.33 Obstructive sleep apnea (adult) (pediatric); Z91.19 Patient's noncompliance with other medical treatment and regimen; K21.9 Gastro-esophageal reflux disease without esophagitis; Z79.899 Other long term (current) drug therapy
CPT/HCPCS: 36415; 80048; 80076; 80307; 82077; 83735; 84100; 85025; 87426; 97162; 97166; 97530; 97535; 99285; J7050; A4216

== ENCOUNTER 2021-07-15 08:57 | Inpatient (IN) | payer MEDICAID, SELFPAY ==
[2021-07-15] VITALS (8 sets, daily range): BP systolic 110–162; BP diastolic 56–86; PULSE 74–93; RESP 15–22; TEMP 36.7–36.9; O2SAT 95–99; BMI 27.3; BMI 27.5
--- NOTE | 2021-07-15 09:09 | EX.ED.SAOD ---
HPI History of Present Illness Chief Complaint: Substance Abuse Detail of Chief Complaint: Requesting detox from alcohol Informant: patient Narrative Narrative: Patient presents to the emergency department requesting detox from alcohol. Patient states that he had been sober for about 35 days after going through detox but 2 weeks ago started binge drinking again. He normally drinks about 1/5 of grocery store vodka per day. His last drink was at 9:30 PM last night. He complains of feeling shaky now. Complains of some mild nausea. Patient has history of hypertension and anxiety and depression. Prior similar symptoms: Yes [facility] Medical History (Updated 07/15/21 @ 10:[address] Maulik Howard, DO) Acute alcoholic pancreatitis Alcohol abuse Alcohol dependence Alcohol withdrawal Alcoholic hepatitis Anemia Anxiety Bicytopenia Bipolar disorder Depression Essential (primary) hypertension ETOH abuse GERD (gastroesophageal reflux disease) Hypokalemia Hypomagnesemia Insomnia Leukopenia Non-smoker GERMANIA (obstructive sleep apnea) GERMANIA (obstructive sleep apnea) Pancreatitis Polysubstance dependence Sleep apnea Substance abuse Home Medications amlodipine 5 mg PO DAILY 10/15/16 [History Last Taken 04/30/21] lisinopril 20 mg PO DAILY 10/15/16 [History Last Taken 04/30/21] metoprolol succinate 25 mg PO DAILY 10/15/16 [History Last Taken 04/30/21] bupropion HCl 300 mg PO DAILY 07/12/18 [History Last Taken 04/30/21] trazodone 100 mg PO QHS 07/12/18 [History Last Taken 04/29/21] atorvastatin 40 mg PO QHS 03/01/21 [History Last Taken 04/29/21] escitalopram oxalate 10 mg PO QHS 03/01/21 [History Last Taken 04/29/21] folic acid 1 mg PO DAILY 03/01/21 [History Last Taken 04/30/21] Virt-Caps 1 cap PO DAILY 04/30/21 [History Last Taken 04/30/21] aripiprazole [Abilify] 5 mg PO DAILY 04/30/21 [History Last Taken 04/30/21] naltrexone 50 mg PO DAILY 04/30/21 [History Last Taken 04/30/21] pantoprazole 20 mg PO DAILY 04/30/21 [History Last Taken 04/30/21] Allergy/AdvReac Type Severity Reaction Status Date / Time No Known Allergies Allergy Verified 07/15/21 08:59 Family History Mother Cancer Father PD (Parkinson's disease) Social History (Updated 04/30/21 @ 17:36 by Kathleen Larson NP, [employer]) current occupational status: unemployed Smoking Status: Current every day smoker tobacco type: cigarettes alcohol intake: current alcohol intake frequency: 3 or more drinks per day substance use type: does not use ROS ROS ED ROS Narrative Shaky Constitutional Constitutional ED: Reports systems reviewed and no addt'l complaints, except as documented; Denies body ache(s), change in weight or chills Eyes Eyes: Denies acute decrease in peripheral vision, change in vision, double vision or loss of vision ENT ENT ED: Reports none; Denies ear pain, lip swelling, loss taste/smell, neck pain, otalgia or sore throat Cardiovascular Cardiovascular: Reports none; Denies abdominal pain, chest pain with activity, leg edema, lightheadedness, palpitations, rapid heart rate or syncope Respiratory/Chest Respiratory/Chest: Reports none; Denies change in mental status, dry cough, dyspnea, hemoptysis, shortness of breath at rest or shortness of breath with exertion Gastrointestinal Gastrointestinal: Reports none, nausea and other Details: Hiccups ; Denies abdominal pain, change in stool character, diarrhea, hematemesis, hematochezia, melena, rectal bleeding or vomiting Genitourinary Genitourinary ED: Reports none; Denies abdominal discomfort, anuria, dysuria, genital pain or polyuria Musculoskeletal Musculoskeletal: Reports none; Denies arthralgias, back pain, difficulty walking, extremity pain, muscle weakness or myalgias Integumentary Reports none; Denies abscess or rash Neurologic Neurologic: Reports none; Denies abnormal gait, confusion, focal weakness, frequent falls, headache(s), loss of vision, numbness, paresthesias, radicular pain, vertigo or weakness Psychiatric Psychiatric: Reports systems reviewed and no addt'l complaints, except as documented and none; Denies behavioral changes, confusion, difficulty concentrating, hallucinations, suicidal ideation, tactile hallucinations or visual hallucinations Endocrine Endocrinology: Denies none, cold intolerance, excessive sweating, fatigue or heat intolerance Hematologic/Lymphatic Hematologic/Lymphatic: Reports none; Denies anemia, easy bleeding or easy bruising Allergic/Immunologic Allergic/Immunologic ED: Denies as per HPI, none, lip swelling, mouth swelling, throat swelling, tongue swelling or hives EXAM Physical Exam Const Vital Signs: 07/15/21 08:57 Temperature 98.2 F Temperature Source Temporal Pulse Rate 79 Respiratory Rate 15 Blood Pressure 162/86 H Blood Pressure Mean 111 Pulse Ox 98 Oxygen Delivery Method Room Air Positive well nourished and well developed General Appearance ED: well developed and NAD HEENT Reports TM's clear and moist mucous membranes HEENT Narrative: Mild scleral icterus normocephalic and atraumatic; Negative for trauma or tenderness Tympanic Membrane ED: Yes TM's clear Eyes PERRL and EOMs intact bilaterally General Eye ED: Negative for pale conjunctiva or scleral icterus Neck no lymphadenopathy, supple and no JVD General: Negative for tenderness Chest Wall inspection of chest normal and palpation of chest normal Chest: Negative for tenderness Resp normal respiratory effort and clear to auscultation bilaterally Effort and Inspection: Negative for respiratory distress or pain with movement Auscultation: Negative for rhonchi, wheezes or diminished lung sounds Cardio regular rate, regular rhythm, S1 normal heart sound, S2 normal heart sound and no murmurs Peripheral Pulses: pulses 2+ throughout GI normal to inspection, nondistended, normoactive bowel sounds, non-tender, non-distended and no masses Inspection: abdominal distention Back/Spine no CVA tenderness and no thoracic nor lumbar tenderness Extremity normal to inspection General Extremety ED: Negative for edema General Extremity: Negative for edema Neuro oriented x3, CN's II-XII intact bilaterally, no sensory deficits noted and gait normal Sensorium / Orientation: awake, alert, oriented to person, oriented to place and oriented to time Motor Exam: strength 5/5 throughout and strength abnormal Psych mental status grossly normal Skin no rashes or lesions noted and no wounds MDM MDM MDM Narrative Medical decision making narrative: IV line established on arrival. Patient was ordered normal saline and Zofran and Ativan. Lab work was significant for hyperbilirubinemia with elevated liver function tests. Patient also noted to be hyponatremic. Case will be discussed with hospitalist to evaluate for admission for alcohol withdrawal, request for detox and suspect alcoholic hepatitis. Lab Data Attestation: I reviewed the patient's lab results. Labs: Laboratory Results - last 24 hr 07/15/21 07/15/21 07/15/21 09:13 09:13 09:13 WBC 7.1 RBC 3.92 L Hgb 10.8 L Hct 33.3 L MCV 84.9 MCH 27.6 MCHC 32.4 RDW Std Deviation 58.5 H RDW Coeff of [place] 19.4 H Plt Count 143 L MPV 9.6 Immature Gran % (Auto) 0.400 Neut % (Auto) 87.3 H Lymph % (Auto) 8.1 L [place] % (Auto) 3.8 Eos % (Auto) 0.1 Baso % (Auto) 0.3 Absolute Neuts (auto) 6.2 Absolute Lymphs (auto) 0.58 L Nucleated RBC % 0 Differential Comment SCANNED Reactive Lymphocytes 1+ Sodium 123 L Potassium 4.0 Chloride 84 L Carbon Dioxide 19.0 L Anion Gap 20 H BUN 18 Creatinine 1.01 Estim Creat Clear Calc 72.82 Est GFR (MDRD) Af Amer 98 Est GFR (MDRD) Non-Af 81 BUN/Creatinine Ratio 17.8 Glucose 83 Calcium 8.2 L Total Bilirubin 6.90 H AST 1243 H ALT 526 H Alkaline Phosphatase 515 H Total Protein 7.0 Albumin 2.9 L Globulin 4.1 Albumin/Globulin Ratio 0.7 L Lipase 523 H Ethyl Alcohol 46.0 Discharge Plan Triage Chief Complaint: Substance Abuse ED Provider: Maulik Howard Dx/Rx/DC Orders Clinical Impression: Alcohol withdrawal, Acute hyponatremia, Acute alcoholic hepatitis Prescriptions: No Action lisinopril 20 MG tablet 20 mg PO DAILY RF: 0 amlodipine 5 MG tablet 5 mg PO DAILY RF: 0 metoprolol succinate 25 MG tablet extended release 24 hr 25 mg PO DAILY RF: 0 trazodone 100 MG tablet 100 mg PO QHS RF: 0 bupropion HCl 300 MG tablet extended release 24 hr 300 mg PO DAILY RF: 0 atorvastatin 40 mg tablet 40 mg PO QHS RF: 0 folic acid 1 mg Tablet 1 mg PO DAILY RF: 0 escitalopram oxalate 10 mg Tablet 10 mg PO QHS RF: 0 naltrexone 50 mg Tablet 50 mg PO DAILY RF: 0 pantoprazole 20 mg tablet,delayed release (DR/EC) 20 mg PO DAILY RF: 0 Virt-Caps 1 mg capsule 1 cap PO DAILY RF: 0 aripiprazole [Abilify] 5 mg tablet 5 mg PO DAILY RF: 0 Primary Care Provider: Enoch Ramirez: Enoch Ramirez MD [Primary Care Provider] - Disposition Disposition: Acute Care Hospital [facility]
[2021-07-15] MEDS: Ondansetron 4 MG/2 ML Vial IV (09:20)
[2021-07-15] MEDS: LORazepam 2 MG/ML Syringe 1 MG IV (09:21)
[2021-07-15 09:23] LABS: Absolute Lymphocyte Count 0.58 X10^3/uL (0.83-4.51); Absolute Neutrophil Count 6.2 X10^3/uL (2.0-7.7); Basophil# 0.02 X10^3/uL; Basophil% 0.3 % (0-1); Eosinophil# 0.01 X10^3/uL; Eosinophils% 0.1 % (0-5); Hematocrit 33.3 % (40-54); Hemoglobin 10.8 g/dL (13.0-16.5); Lymphocyte # 0.58 X10^3/ul (0.83-4.51); Lymphocyte % 8.1 % (19-41); Mean Corp Hgb Conc 32.4 g/dL (32-36); Mean Corpuscular Hgb 27.6 pg (27.0-32.0); Mean Corpuscular Volume 84.9 fL (80-94); Mean Platelet Vol. 9.6 fl (6.2-12.0); Monocyte# 0.27 X10^3/uL; Monocyte% 3.8 % (0-10); NRBC Flagged by Analyzer 0 % (0-5); Neutrophil # 6.23 X10^3/uL (2.7-7.7); Neutrophil % 87.3 % (47-70); POSITIVE DIFFERENTIAL YES; POSITIVE MORPHOLOGY YES; Platelet Count 143 K/mm3 (150-450); RBC Distribution Width CV 19.4 % (11.6-14.6); RBC Distribution Width SD 58.5 fl (35.1-43.9); Red Blood Count 3.92 M/mm3 (4.6-6.2); White Blood Count 7.1 K/mm3 (4.4-11.0)
[2021-07-15 09:27] LABS: Differential Indicated SCAN CRITERIA MET
[2021-07-15] MEDS: 0.9% Normal Saline 1,000 ML 150 ML IV (09:28)
[2021-07-15 09:48] LABS: Differential Comment SCANNED; Reactive Lymphocyte 1+
[2021-07-15 09:49] LABS: ALB/GLOB Ratio 0.7 RATIO (0.9-2.4); AST(SGOT) 1243 U/L (15-37); Alanine Aminotransfer ALT/SGPT 526 U/L (16-61); Albumin, Serum 2.9 g/dL (3.2-5.0); Alkaline Phosphatase 515 U/L (45-117); Anion Gap 20 (5-15); BUN 18 mg/dL (7-18); BUN/Creat Ratio 17.8 RATIO (10-20); Calcium,Total 8.2 mg/dL (8.5-10.1); Chloride 84 mmol/L (98-107); Creatinine, Serum 1.01 mg/dL (0.70-1.30); EST Glomerular Filtration Rate 81 mL/min (>60); Est Glom Filt Rate - Afr Amer 98 mL/min (>60); Estimated Creatinine Clearance 72.82 ml/min; Globulin 4.1 g/dL (2.2-4.2); Glucose 83 mg/dL (74-106); Lipase 523 U/L (73-393); Sodium Level 123 mmol/L (136-145)
--- NOTE | 2021-07-15 10:20 | US_ITS ---
STUDY: ABDOMINAL ULTRASOUND REASON FOR EXAM: Male, 56 years old. Transaminitis TECHNIQUE: Transabdominal ultrasound was performed with real-time and static buitrago scale imaging. TECHNICAL QUALITY: Adequate. COMPARISON: Comparison is made with prior ultrasound of the right upper quadrant dated 10/24/2016. FINDINGS: Liver: The liver is enlarged and measures 21.1 cm. There is increased echogenicity consistent with fatty infiltration. The bile ducts are within normal limits. There is hepatic color flow. The direction of portal flow is hepatopetal. There is no demonstrated mass lesion. Gallbladder: Normal distended gallbladder. The gallbladder wall measures 1.6 mm. There is a negative sonographic Quesada''s sign. There is no pericholecystic fluid. There are no gallstones. Common Bile Duct (C.B.D.): The common bile duct measures 4.5 mm. Pancreas: There is nonvisualization of the pancreas due to overlying bowel gas. Spleen: Normal size of the spleen. The spleen measures 10 cm x 4.3 cm x 4.2 cm. Right Kidney: Normal size of the right kidney. The right kidney measures 12 cm x 6 cm x 6.4 cm. Normal renal cortex. The right cortex measures 1.6 cm. There is no demonstrated renal mass or cyst. There is no right hydronephrosis. Possible 3 mm x 4 mm nonobstructive intrarenal calculus. Left Kidney: Normal size of the left kidney. The left kidney measures 11.6 cm x 5 cm x 5.8 cm. Normal renal cortex. The left cortex measures 1.6 cm. There is no demonstrated renal mass or cyst. There is no left hydronephrosis. Aorta: Unremarkable I.V.C.: The IVC is patent. There is no ascites. US/Abdomen Complete IMPRESSION: Hepatomegaly and fatty infiltration of the liver. Electronically Signed: Yahir Lr MD at 13:03 EST , Service support ,
--- NOTE | 2021-07-15 10:26 | CM.ED ---
SYED Note Referral Source: Ramp Referral Reason: Manny LYNCH and RN JINA met with patient in the ED. Patient reports he has been using alcohol for 2 weeks. He reports that he is drinking 1/5th or more a day of gas station 40 proof alcohol. Patient reports that the trigger to his drinking was his and his being but now learning that his is with some other malou. Patient is linked with [facility] and his counselor is Latricia. Patient said that he understands the RAMP program and the rules which include no visitors, personal items locked and no phones and is in agreement with the programs expectations. SYED updated patient that Addiction Therapist, Berto, would be updated about patient being in the ED. No other concerns or issues voiced. SYED remains available. [facility]ED called and left confidential voice mail for Berto Albarran advising of patient being in the ED for RAMP admission. Plan: Manny ZURITA
--- NOTE | 2021-07-15 10:31 | NURSING ---
DR ELSY MCKEON
[2021-07-15] MEDS: ChlorproMAZINE 50 MG/2 ML Ampul 25 MG IM (10:34)
--- NOTE | 2021-07-15 10:41 | NURSING ---
MED SURG ELSY ETOH WITHDRAWAL, ALCOHOLIC HEPATITIS
[2021-07-15 10:45] LABS: International Normalized Ratio 1.1; Prothrombin Time (Protime)PT. 13.3 SECONDS (11.7-14.9)
[2021-07-15 10:46] LABS: Partial Thromboplast Time 31.7 Seconds (24.1-36.2)
--- NOTE | 2021-07-15 10:51 | PCM.HP.STD ---
HPI - General General Date of Admission: 07/15/21 Date of Service: 07/15/21 Chief Complaint: Acute alcohol withdrawal HPI Narrative CHERELLE STEEN, is a 56 M who [facility] for acute alcohol withdrawal. The patient is well-known to our service as he is had multiple admissions for acute alcohol withdrawal. His most recent admission was in April of this year. He states that this time he is drinking at least 1/5 of hard liquor that he buys at a gas station daily. He denies any consumption of ethylene glycol. He states his p.o. intake has been very poor and he is hardly eating anything. His last drink was approximately 930 last night. He feels mildly tremulous but denies any nausea vomiting or diarrhea at this time. He has gone through detox multiple times and has done well with phenobarbital however at this time his LFTs are elevated we are going to have to use Ativan which she has tolerated well in the past. He denies any abdominal pain, shortness of breath, chest pain, tingling numbness or weakness. He has had no episodes of uncontrolled bleeding. His vital signs in the emergency department were overall unremarkable other than some mild blood pressure elevations that seem to be transient. His CBC shows a normal white count with chronic stable anemia and mild thrombocytopenia at 143. His CMP is markedly abnormal with a sodium of 123 his chloride was 85 he had a bicarb of 19 and anion gap of 20. His serum creatinine was normal. His calcium was normal. His bilirubin was markedly elevated at 6.9 with a markedly elevated AST ALT and alk phos which were 1243, 526, 519 respectively. A lipase was obtained and was 523. His serum alcohol level was 46. In the emergency department he was treated with IV fluids and request for admission was made for alcohol detox. He was admitted to medical surgical floor with consultation GI and significant amount of lab ordered for follow-up with relationship to his hyponatremia and his LFT elevations. [facility] Medical History Acute alcoholic pancreatitis Alcohol abuse Alcohol dependence Alcohol withdrawal Alcoholic hepatitis Anemia Anxiety Bicytopenia Bipolar disorder Depression Essential (primary) hypertension ETOH abuse GERD (gastroesophageal reflux disease) Hepatitis Hypokalemia Hypomagnesemia Insomnia Leukopenia Non-smoker GERMANIA (obstructive sleep apnea) GERMANIA (obstructive sleep apnea) Pancreatitis Polysubstance dependence Sleep apnea Substance abuse Home Medications amlodipine 5 mg PO DAILY 10/15/16 [History Last Taken 04/30/21] lisinopril 20 mg PO DAILY 10/15/16 [History Last Taken 04/30/21] metoprolol succinate 25 mg PO DAILY 10/15/16 [History Last Taken 04/30/21] bupropion HCl 300 mg PO DAILY 07/12/18 [History Last Taken 04/30/21] trazodone 100 mg PO QHS 07/12/18 [History Last Taken 04/29/21] atorvastatin 40 mg PO QHS 03/01/21 [History Last Taken 04/29/21] escitalopram oxalate 10 mg PO QHS 03/01/21 [History Last Taken 04/29/21] folic acid 1 mg PO DAILY 03/01/21 [History Last Taken 04/30/21] Virt-Caps 1 cap PO DAILY 04/30/21 [History Last Taken 04/30/21] aripiprazole [Abilify] 5 mg PO DAILY 04/30/21 [History Last Taken 04/30/21] pantoprazole 20 mg PO DAILY 04/30/21 [History Last Taken 04/30/21] Allergy/AdvReac Type Severity Reaction Status Date / Time No Known Allergies Allergy Verified 07/15/21 08:59 Family History Mother Cancer Father PD (Parkinson's disease) Social History current occupational status: unemployed Smoking Status: Never smoker alcohol intake: current alcohol intake frequency: 3 or more drinks per day substance use type: does not use ROS Constitutional Constitutional: Denies anorexia, change in weight, chills, fatigue, fever(s), malaise, night sweats, weakness or other Eyes Eyes: Denies blurry vision, change in eye color, change in vision, discharge from eye(s), double vision, erythema, eye pain, loss of vision or other ENT HEENT: Denies abnormal hearing, dysphagia, ear pain, epistaxis, headache(s), hearing loss, nasal congestion, nasal discharge, post nasal drip, sinus pressure, sore throat or other Cardiovascular Cardiovascular: Denies chest pain, claudication, dyspnea on exertion, edema, lightheadedness, orthopnea, palpitations, paroxysmal nocturnal dyspnea, rapid heart rate, syncope or other Respiratory/Chest Respiratory/Chest: Denies cough, dyspnea, excessive phlegm production, hemoptysis, productive cough, shortness of breath at rest, shortness of breath with exertion, wheezing or other Gastrointestinal Gastrointestinal: Reports diarrhea and nausea; Denies abdominal pain, coffee ground emesis, constipation, dyspepsia, hematemesis, hematochezia, loose stools, melena, vomiting or other Genitourinary Genitourinary: Denies burning urination, difficulty urinating, dysuria, hematuria, nocturia, urinary frequency, urinary hesitancy, urinary incontinence, urinary urgency or other Musculoskeletal Musculoskeletal: Denies arthralgias, back pain, joint pain, joint stiffness, joint swelling, myalgias, neck pain or other Neurologic Neurologic: Reports tremor(s); Denies abnormal gait, abnormal speech, confusion, disequilibrium, dizziness, focal weakness, headache(s), numbness, paresthesias, seizure-like activity, seizures, syncope, tingling or other Psychiatric Psychiatric: Reports anxiety and depression; Denies homicidal ideation, suicidal ideation or other Endocrine Endocrinology: Denies change in body appearance, cold intolerance, excessive sweating, heat intolerance, polydipsia, polyuria or other Hematologic/Lymphatic Hematologic/Lymphatic: Denies anemia, easy bleeding, easy bruising, lymphadenopathy or other Allergic/Immunologic Allergic/Immunologic: Denies rhinitis, hives, eczemia, asthma or other Vital Signs Vital Signs Vital Signs: 07/15/21 08:57 07/15/21 10:20 Temperature 98.2 F Temperature Source Temporal Pulse Rate 79 74 Respiratory Rate 15 16 Blood Pressure 162/86 H 134/78 H Blood Pressure Mean 111 96 Pulse Ox 98 98 Oxygen Delivery Method Room Air Room Air Weight Weight: 77 kg Body Mass Index (BMI) 27.3 Physical Exam Const alert, oriented x3 and no apparent distress Constitutional Narrative: Over white male lying in bed, has hiccups, appears tremulous but nontoxic General Appearance: cooperative HEENT normocephalic, head/scalp atraumatic, hearing grossly normal bilaterally and moist oral mucous membranes HEENT Narrative: Dentition is good, buccal jaundice is present, Mallampati 2 Eyes PERRL, EOMs intact bilaterally and conjunctivae normal Eyes Narrative: Positive scleral icterus Neck no lymphadenopathy, supple, no JVD and no carotid bruits Neck Narrative: Trachea midline, no thyroid enlargement Resp normal respiratory effort, no retractions, no use of accessory muscles and clear to auscultation bilaterally Auscultation: Negative for crackles, rales, rhonchi or wheezes Cardio regular rate, regular rhythm, S1 normal heart sound, S2 normal heart sound, no murmurs, no rub, no gallops, no clicks and no JVD GI normal to inspection, nondistended, normoactive bowel sounds, soft to palpation, non-distended and hepatosplenomegaly Palpation: tender RUQ (Mild) Extremity no clubbing, cyanosis or edema Peripheral Pulses: Yes pulses 2+ throughout Skin no rashes or lesions noted, no wounds, skin turgor normal, no jaundice, no petechiae and no mottling Neuro oriented x3, moves all extremities and no focal motor deficits Neuro Narrative: Fine tremor present Sensorium / Orientation: awake and alert Speech: speech normal Motor Exam: strength 5/5 throughout Psych Psych Narrative: Affect is flat and mood is depressed Results Lab / Micro Data Result Diagrams: 07/15/21 09:13 07/15/21 14:51 Labs: Laboratory Results - last 24 hr 07/15/21 09:13: WBC 7.1, RBC 3.92 L, Hgb 10.8 L, Hct 33.3 L, MCV 84.9, MCH 27.6, MCHC 32.4, RDW Std Deviation 58.5 H, RDW Coeff of [place] 19.4 H, Plt Count 143 L, MPV 9.6, Immature Gran % (Auto) 0.400, Neut % (Auto) 87.3 H, Lymph % (Auto) 8.1 L, [place] % (Auto) 3.8, Eos % (Auto) 0.1, Baso % (Auto) 0.3, Absolute Neuts (auto) 6.2, Absolute Lymphs (auto) 0.58 L, Nucleated RBC % 0, Differential Comment SCANNED, Reactive Lymphocytes 1+ 07/15/21 09:13: Sodium 123 L, Potassium 4.0, Chloride 84 L, Carbon Dioxide 19.0 L, Anion Gap 20 H, BUN 18, Creatinine 1.01, Estim Creat Clear Calc 72.82, Est GFR (MDRD) Af Amer 98, Est GFR (MDRD) Non-Af 81, BUN/Creatinine Ratio 17.8, Glucose 83, Calcium 8.2 L, Total Bilirubin 6.90 H, AST 1243 H, ALT 526 H, Alkaline Phosphatase 515 H, Total Protein 7.0, Albumin 2.9 L, Globulin 4.1, Albumin/Globulin Ratio 0.7 L, Lipase 523 H 07/15/21 09:13: Ethyl Alcohol 46.0 07/15/21 09:15: PT 13.3, INR 1.1, APTT 31.7 Assessment & Plan Assessment/Plan (1) Thrombocytopenia: (2) Metabolic acidosis: (3) Hyperbilirubinemia: (4) Hepatitis: (5) Alcohol withdrawal: (6) Acute hyponatremia: PLAN: Acute alcohol withdrawal -Unable to use phenobarb taper since he has marked liver enzyme elevation -Ativan taper ordered with [facility] protocol -Patient decompensates from a withdrawal standpoint would recommend transfer to the ICU and initiation of Precedex -supportive medications -Thiamine 200 mg x 3 days -Folate 1 mg daily -180 consultation -I highly recommended to him inpatient rehab as he has failed multiple attempts at outpatient rehab programs Acute hyponatremia -Suspect this has been a slow decline over time given his neurological status at this point -Patient with multiple risk factors for hyponatremia including chronic alcohol use, poor solute intake, potential SIADH with home medication use -Serum sodium on admission was 123 -Baseline sodium appears to be 135-140 -Check every 4 hours sodiums -We will challenge with normal saline at 100 cc/h but if sodium drops further will need to consider fluid restriction -Check serum and urine osmolality -Check urine sodium -Check TSH and cortisol -Hold home Abilify, bupropion, Lexapro Acute hepatitis with hyperbilirubinemia -Suspect alcoholic induced hepatitis but unable to rule out other causes -Acute hepatitis panel pending -Is jaundiced on exam -CT of the abdomen is pending -Coagulation studies are normal -Hold atorvastatin -Check CK -GI consultation Anion gap metabolic acidosis -Etiology at this time is unclear -Alcohol level was not elevated -Could be related to starvation ketosis as patient states he has not eaten much in the last several days he been drinking alcohol -CK is pending -Could be related to liver injury as well and work-up is in progress -Check ABG--> if compensated we will just continue to monitor but if acidotic will need to initiate a bicarb drip -Ethylene glycol level pending/salicylate level pending/tox screen pending Thrombocytopenia -Suspect marrow toxicity related as he seems to have thrombocytopenia that ebbs and flows depending on his alcohol intake -Monitor clinically -Repeat lab in a.m. Hypertension -Continue amlodipine 5 mg daily -Continue lisinopril 20 mg daily -Continue metoprolol 20 daily GERD -Continue Protonix 20 mg daily Bipolar disease/depression/anxiety -Hold home medications with current liver dysfunction DVT prophylaxis -Lovenox 40 mg subcu daily CODE STATUS -Full code Charges/Coding Visit Charges Inpatient E&M: 90931 Init Hosp L3
[2021-07-15] MEDS: LORazepam 1 MG Tablet 0.5 MG PO ×3 (13:58→22:11)
--- NOTE | 2021-07-15 14:17 | NURSING ---
Pandemic Documentation Initiated Emergency Documentation Start: 07/15/21 13:27 Freq: ONCE Status: Active Protocol: Created 07/15/21 14:16 (Rec: 07/15/21 14:16 [id number])
[2021-07-15 15:52] LABS: ALB/GLOB Ratio 0.7 RATIO (0.9-2.4); AST(SGOT) 1129 U/L (15-37); Alanine Aminotransfer ALT/SGPT 471 U/L (16-61); Albumin, Serum 2.7 g/dL (3.2-5.0); Alkaline Phosphatase 484 U/L (45-117); Anion Gap 21 (5-15); BUN 17 mg/dL (7-18); BUN/Creat Ratio 18.9 RATIO (10-20); Calcium,Total 7.8 mg/dL (8.5-10.1); Chloride 85 mmol/L (98-107); EST Glomerular Filtration Rate 92 mL/min (>60); Est Glom Filt Rate - Afr Amer 112 mL/min (>60); Estimated Creatinine Clearance 81.72 ml/min; Globulin 3.7 g/dL (2.2-4.2); Glucose 91 mg/dL (74-106); Protein, Total 6.4 g/dL (6.4-8.2); Sodium Level 122 mmol/L (136-145)
--- NOTE | 2021-07-15 16:02 | ADDICTION ---
This medical writer met with PT to conduct ASAM, MSE, AUDIT assessments and to plan for d/c. PT A+Ox4 and participated actively. All assessments completed, faxed to [facility] and placed in PT's chart. PT plans to f/u with individual counselor at [facility] for follow-up counseling services. PT did not indicate a need for transportation post d/c from [facility].
--- NOTE | 2021-07-15 16:55 | CT_ITS ---
STUDY: CT ABDOMEN AND PELVIS WITH CONTRAST REASON FOR EXAM: Male, 56 years old. Severe hepatitis and jaundice. RADIATION DOSAGE (If Supplied By Facility): CTDIvol = ( 11.09 ) mGy, DLP = ( 798.52 ) mGycm TECHNIQUE: Transaxial images were obtained from the dome of the diaphragm to the symphysis pubis without oral contrast. IV 100mL Isovue-300 was administered. Sagittal and coronal images were reconstructed. Individualized dose optimization techniques were used for this CT. COMPARISON: Abdominal ultrasound, 07/15/2021. FINDINGS: Minimal patchy groundglass infiltrates at both lung bases. The lungs are otherwise clear. The visualized portions of the heart are within normal limits. There is marked fatty infiltration of the mildly enlarged liver without focal mass. Normal portal veins. Normal gallbladder and extrahepatic biliary system. Normal spleen. Normal pancreas. Normal bilateral adrenal glands. Normal right kidney. Normal left kidney. Normal visualized ureters. Normal visualized stomach. Normal small intestine. Normal colon. The appendix is visualized and appears normal. There is diffuse atherosclerotic calcification of the abdominal aorta, without a demonstrated aneurysm. Normal inferior vena cava. Normal retroperitoneum. Normal urinary bladder. Normal prostate. No pelvic lymphadenopathy or mass. No free air or free fluid is seen within the peritoneal cavity. Normal abdominal wall. There are diffuse degenerative changes of the visualized lumbar spine. CT/Abdomen/Pelvis W IV Cont ONLY IMPRESSION: 1. Enlarged fatty infiltrated liver without mass. 2. Otherwise normal CT of the abdomen and pelvis. Electronically Signed: Shorty Talley DO at 18:49 EST Tel [phone], Service support ,
--- NOTE | 2021-07-15 17:07 | CON.PCM.GI_ITS ---
HPI Consult Data Date of Consult: 07/15/21 HPI Narrative HPI Narrative: CHERELLE STEEN, is a 56 M who presents with nausea and feeling uneasy. Alcoholic hepatitis, alcoholism, thrombocytopenia associated with drug toxicity, hypomagnesemia and bipolar disorder. He states that he came to the emergency department requesting detox from alcohol. Patient states that he had been sober for about 35 days after going through detox but 2 weeks ago started binge drinking again. He normally drinks about 1/5 of grocery store vodka per day. His last drink was at 9:30 PM last night. He had an ultrasound of the liver which showed hepatic steatosis with hepatomegaly. On admission he was discovered to have a severe transaminitis, hyperbilirubinemia and elevated lipase consistent with acute liver injury and possible alcohol induced pancreatitis. He was also discovered to have a gapped metabolic acidosis and hyponatremia. At this time he does not have any complai nts. He has no history of viral hepatitis. He does not take any Tylenol products. [facility] Medical History Acute alcoholic pancreatitis Alcohol abuse Alcohol dependence Alcohol withdrawal Alcoholic hepatitis Anemia Anxiety Bicytopenia Bipolar disorder Depression Essential (primary) hypertension ETOH abuse GERD (gastroesophageal reflux disease) Hepatitis Hypokalemia Hypomagnesemia Insomnia Leukopenia Non-smoker GERMANIA (obstructive sleep apnea) GERMANIA (obstructive sleep apnea) Pancreatitis Polysubstance dependence Sleep apnea Substance abuse Home Medications amlodipine 5 mg PO DAILY 10/15/16 [History Last Taken 04/30/21] lisinopril 20 mg PO DAILY 10/15/16 [History Last Taken 04/30/21] metoprolol succinate 25 mg PO DAILY 10/15/16 [History Last Taken 04/30/21] bupropion HCl 300 mg PO DAILY 07/12/18 [History Last Taken 04/30/21] trazodone 100 mg PO QHS 07/12/18 [History Last Taken 04/29/21] atorvastatin 40 mg PO QHS 03/01/21 [History Last Taken 04/29/21] escitalopram oxalate 10 mg PO QHS 03/01/21 [History Last Taken 04/29/21] folic acid 1 mg PO DAILY 03/01/21 [History Last Taken 04/30/21] Virt-Caps 1 cap PO DAILY 04/30/21 [History Last Taken 04/30/21] aripiprazole [Abilify] 5 mg PO DAILY 04/30/21 [History Last Taken 04/30/21] pantoprazole 20 mg PO DAILY 04/30/21 [History Last Taken 04/30/21] Allergy/AdvReac Type Severity Reaction Status Date / Time No Known Allergies Allergy Verified 07/15/21 08:59 Family History Mother Cancer Father PD (Parkinson's disease) Social History current occupational status: unemployed Smoking Status: Never smoker alcohol intake: current alcohol intake frequency: 3 or more drinks per day substance use type: does not use ROS Review of Systems ROS Unobtainable: other Constitutional Constitutional: Denies fatigue, fever(s), poor appetite, weight gain or weight loss ENT HEENT: Denies mouth lesions Cardiovascular Cardiovascular: Denies abdominal bloating, abdominal edema or abdominal pain Respiratory/Chest Respiratory/Chest: Denies change in mental status, change in phlegm color, chest congestion or chest tightness Gastrointestinal Gastrointestinal: Denies belching, bloating, change in bowel habits, change in stool character, chewing difficulty, coffee ground emesis, constipation, cramping, diarrhea, dyspepsia, dysphagia, early satiety, excessive flatus, fecal incontinence, heartburn, hematemesis, hematochezia, hemorrhoids, loose stools, melena, nausea, odynophagia, rectal bleeding, tenesmus, vomiting or weight changes Genitourinary Genitourinary: Denies abdominal discomfort, burning urination or itching Musculoskeletal Musculoskeletal: Reports as per HPI; Denies muscle weakness or myalgias Integumentary Integumentary: Denies jaundice Neurologic Neurologic: Denies lack of coordination or weakness Psychiatric Psychiatric: Denies confusion, depression, memory loss, mood swings, paranoia or suicidal ideation Endocrine Endocrinology: Denies systems reviewed and no addt'l complaints, except as documented Hematologic/Lymphatic Hematologic/Lymphatic: Denies anemia, easy bleeding, easy bruising or lymphadenopathy Allergic/Immunologic Allergic/Immunologic: Denies systems reviewed and no addt'l complaints, except as documented Physical Exam Const alert General Appearance: cooperative Orientation / Consciousness: oriented to person HEENT hearing grossly normal bilaterally Head and Scalp: normal to inspection Face and Sinus: face symmetric Nose: external nose normal Mouth: oral and palatal mucosa normal Eyes conjunctivae normal Eyes Narrative: Scleral icterus General Eye: normal appearance of both eyes Neck full ROM General: normal visual inspection Lymph Lymphatic: no lymphadenopathy noted Chest inspection of chest normal and palpation of chest normal Chest: symmetrical chest wall rise Resp normal respiratory effort Effort and Inspection: able to speak in complete sentences Cardio regular rate GI non-distended Percussion: normal to percussion Rectal Exam: deferred Neuro Speech: speech normal Gait (Neuro): normal gait Lab / Micro Data Result Diagrams: 07/15/21 09:13 07/15/21 14:51 Labs: Laboratory Results - last 24 hr 07/15/21 09:13: WBC 7.1, RBC 3.92 L, Hgb 10.8 L, Hct 33.3 L, MCV 84.9, MCH 27.6, MCHC 32.4, RDW Std Deviation 58.5 H, RDW Coeff of [place] 19.4 H, Plt Count 143 L, MPV 9.6, Immature Gran % (Auto) 0.400, Neut % (Auto) 87.3 H, Lymph % (Auto) 8.1 L, Cameron % (Auto) 3.8, Eos % (Auto) 0.1, Baso % (Auto) 0.3, Absolute Neuts (auto) 6.2, Absolute Lymphs (auto) 0.58 L, Nucleated RBC % 0, Differential Comment SCANNED, Reactive Lymphocytes 1+ 07/15/21 09:13: Sodium 123 L, Potassium 4.0, Chloride 84 L, Carbon Dioxide 19.0 L, Anion Gap 20 H, BUN 18, Creatinine 1.01, Estim Creat Clear Calc 72.82, Est GFR (MDRD) Af Amer 98, Est GFR (MDRD) Non-Af 81, BUN/Creatinine Ratio 17.8, Glucose 83, Calcium 8.2 L, Total Bilirubin 6.90 H, AST 1243 H, ALT 526 H, Alkaline Phosphatase 515 H, Total Protein 7.0, Albumin 2.9 L, Globulin 4.1, Albumin/Globulin Ratio 0.7 L, Lipase 523 H 07/15/21 09:13: Ethyl Alcohol 46.0 07/15/21 09:15: PT 13.3, INR 1.1, APTT 31.7 07/15/21 10:50: Lactic Acid Cancelled 07/15/21 14:51: Lactic Acid Cancelled 07/15/21 14:51: Sodium 122 L, Potassium 4.0, Chloride 85 L, Carbon Dioxide 16.0 L, Anion Gap 21 H, BUN 17, Creatinine 0.90, Estim Creat Clear Calc 81.72, Est GFR (MDRD) Af Amer 112, Est GFR (MDRD) Non-Af 92, BUN/Creatinine Ratio 18.9, Glucose 91, Calcium 7.8 L, Total Bilirubin 6.60 H, AST 1129 H, ALT 471 H, Alkaline Phosphatase 484 H, Total Protein 6.4, Albumin 2.7 L, Globulin 3.7, Albumin/Globulin Ratio 0.7 L Micro: Microbiology 07/15/21 10:25 Nasal Secretion SARS-CoV-2 Antigen (Rapid) - Final Radiology Impression Abdomen Ultrasound 07/15/21 10:20 IMPRESSION: Hepatomegaly and fatty infiltration of the liver. Electronically Signed: Yahir Lr MD at 13:03 EST , Service support , Assessment & Plan Assessment/Plan (1) Hepatitis: PLAN: Differential Diagnosis for Severe Transaminitis in the 1000s While LFTs in the 100s range is fairly common, the the DDx of AST/ALT > 1000 is narrow. The 3 most common causes are: 1) Ischemic Hepatitis 2) Acute Viral Hepatitis (HAV, HBV, NOT HCV) 3) Drug/Toxin Induced Liver Injury ? by far the most common being Tylenol Of note, alcoholic hepatitis does not cause AST/ALT rises > 400!! Clues that favor ischemic hepatitis over the other viral or drug-injury: I will order an LDH- An markedly elevated LDH ? fairly specific for ischemic hepatitis Rapid fall in AST/ALT after initial insult (in viral or drug-induced liver injury, LFTs take weeks to months to normalize) Nausea other other signs of shock or end-organ perfusion, such as renal failure Other, less common causes of LFTs in the 1000s include: Exacerbation of Autoimmune Hepatitis Acute Budd Chiari, especially with concomitant portal vein thrombosis. There was no note of thrombosis upon his ultrasound. However I will order a CT scan abdomen pelvis because he did not have a baseline study. Portal vein thrombosis and or hepatic vein thrombosis is seen better sometimes on CT. Hepatic Infarction evaluated on CT scan Reactivation of chronic Hep B, or Hepatitis D superimposed on chronic Hep B. We will check acute hepatitis profile [facility] Crisis ? presents with acute liver failure in young adults/children, with concomitant hemolytic anemia. He is not showing any signs of hemolysis at this time. His [place] alcoholic hepatitis score- 7 points Scores of less than 9 portended a much better 28- and 84-day survival than scores above 9 or above (87%/79% vs. 46%/40%). (2) Thrombocytopenia: PLAN: This is likely secondary to either splenic sequestration in the setting of hepatomegaly with portal hypertension. (3) Hyperbilirubinemia: PLAN: This is likely secondary to alcoholic hepatitis, ischemic hepatitis plus or minus drug-induced hepatitis. (4) Metabolic acidosis: PLAN: Metabolic acidosis is likely secondary to acute liver injury. We will get an LDH and possibly consider Mucomyst. It is okay to put him on bicarbonate if his metabolic acidosis does not improve. We will have to keep a close eye on his INR. Charges/Coding Visit Charges Inpatient E&M: 02597 Init Hosp L3
[2021-07-15 18:12] LABS: Erythrocyte Sedimentation Rate 11 mm/hr (0-20)
[2021-07-15 18:23] LABS: CPK Total, Creatine Kinase 510 U/L (39-308); Ferritin 1643 ng/mL (26-388); LDH 595 U/L (87-241); Thyroid Stim Hormone (TSH) 0.78 uIU/mL (0.358-3.74)
[2021-07-15 18:23] LABS: Salicylate < 1.7 mg/dL (2.8-20.0)
[2021-07-15 18:33] LABS: Bacteria 0 SEEN /hpf (None Seen); Mucous, Urine 0 SEEN /hpf (<or=2+); Red Blood Cells-Urine 0 SEEN /hpf (0-5)
[2021-07-15 18:34] LABS: Color, Urine Amber (Yellow); Glucose, Dipstick Normal (Normal); Leukocyte Esterase-Dipstick Negative /ul (Negative); Nitrite-Dipstick Negative (Negative); Occult Blood-Urine Negative /ul (Negative); Protein-Dipstick 30 mg/dl (Negative); Urine Clarity Clear (Clear); Urine Urobilinogen 8 mg/dl (Normal)
[2021-07-15 18:34] LABS: Osmolality, Serum 276 mOsm/KG (275-295)
[2021-07-15 18:39] LABS: Urine Bilirubin Dipstick 3 mg/dL (Negative)
[2021-07-15 18:42] LABS: Ketone-Dipstick 150 mg/dl (Negative); Urine Sodium 7 mmol/L (Not Establ.)
[2021-07-15 18:45] LABS: Squamous Epithelial Cells - UA 0-5 SEEN /hpf (0-5); White Blood Cells 0-5 SEEN /hpf (0-5)
[2021-07-15 18:46] LABS: Hyaline Cast 0-5 SEEN /lpf (0-5); Transitional Epithelial - Ur 0-5 SEEN /hpf (0-5)
[2021-07-15 18:47] LABS: Amphetamine Urine VISTA NEGATIVE (<1000 ng/mL); Barbiturate Urine VISTA NEGATIVE (< 200 ng/mL); Benzodiazepine Urine VISTA NEGATIVE (< 200 ng/mL); Cocaine Urine VISTA NEGATIVE (< 300 ng/mL); Ecstacy Urine VISTA POSITIVE (< 500 ng/mL); Methadone Urine VISTA NEGATIVE (< 300 ng/mL); PCP Urine VISTA NEGATIVE (< 25 ng/mL); THC Urine VISTA NEGATIVE (< 50 ng/mL); Vista UDS pH Range 5
[2021-07-15 18:48] LABS: Osmolality, Urine 523 mOsm/KG
[2021-07-15 18:50] LABS: Allen Test Positive; Base Excess -3 mmol/L (-2 to +2); Bicarbonate 21.3 mmol/L (22-26); Blood Gas Specimen Type ART; FI02 21; O2 Delivery Device Room Air; PO2 76 mmHG (75-100); SITE R Radial; SO2 96 % (95-99); Total Carbon Dioxide 22 mmol/L; pCO2 31.6 mmHg (35-45); pH 7.44 (7.35-7.45)
[2021-07-15] MEDS: 0.9% Normal Saline 1,000 ML 100 ML IV (21:05)
[2021-07-15] MEDS: Ondansetron 8 MG Tablet PO (22:13)
[2021-07-15] MEDS: traZODone 100 MG Tablet PO (22:13)
[2021-07-15] MEDS: Heparin Injection (Vial) 5,000 UNIT/ML VIAL 5000 UNIT SC (22:13)
[2021-07-16] VITALS (9 sets, daily range): BP systolic 120–129; BP diastolic 69–77; PULSE 72–93; RESP 16–20; TEMP 36.4–37.1; O2SAT 93–97
[2021-07-16] MEDS: LORazepam 1 MG Tablet 0.5 MG PO ×5 (02:01→20:46)
[2021-07-16] MEDS: 0.9% Normal Saline 1,000 ML 100 ML IV ×3 (02:07→22:24)
[2021-07-16 07:18] LABS: Absolute Lymphocyte Count 0.58 X10^3/uL (0.83-4.51); Absolute Neutrophil Count 3.2 X10^3/uL (2.0-7.7); Basophil# 0.02 X10^3/uL; Basophil% 0.5 % (0-1); Eosinophil# 0.05 X10^3/uL; Eosinophils% 1.2 % (0-5); Hematocrit 26.3 % (40-54); Hemoglobin 8.7 g/dL (13.0-16.5); Lymphocyte # 0.58 X10^3/ul (0.83-4.51); Lymphocyte % 14.3 % (19-41); Mean Corp Hgb Conc 33.1 g/dL (32-36); Mean Corpuscular Hgb 28.5 pg (27.0-32.0); Mean Corpuscular Volume 86.2 fL (80-94); Mean Platelet Vol. 10.8 fl (6.2-12.0); Monocyte# 0.19 X10^3/uL; Monocyte% 4.7 % (0-10); NRBC Flagged by Analyzer 0 % (0-5); Neutrophil # 3.16 X10^3/uL (2.7-7.7); Neutrophil % 77.8 % (47-70); POSITIVE DIFFERENTIAL YES; POSITIVE MORPHOLOGY YES; Platelet Count 143 K/mm3 (150-450); RBC Distribution Width CV 18.9 % (11.6-14.6); RBC Distribution Width SD 58.1 fl (35.1-43.9); Red Blood Count 3.05 M/mm3 (4.6-6.2); White Blood Count 4.1 K/mm3 (4.4-11.0)
[2021-07-16 07:20] LABS: Differential Indicated SCAN CRITERIA MET
[2021-07-16 07:57] LABS: ALB/GLOB Ratio 0.7 RATIO (0.9-2.4); AST(SGOT) 903 U/L (15-37); Alanine Aminotransfer ALT/SGPT 367 U/L (16-61); Albumin, Serum 2.3 g/dL (3.2-5.0); Alkaline Phosphatase 484 U/L (45-117); Anion Gap 14 (5-15); BUN 15 mg/dL (7-18); Calcium,Total 7.9 mg/dL (8.5-10.1); Chloride 90 mmol/L (98-107); EST Glomerular Filtration Rate 82 mL/min (>60); Est Glom Filt Rate - Afr Amer 99 mL/min (>60); Estimated Creatinine Clearance 63.29 ml/min; Globulin 3.4 g/dL (2.2-4.2); Glucose 146 mg/dL (74-106); Magnesium 1.9 mg/dL (1.6-2.6); Phosphorus 1.1 mg/dL (2.5-4.9); Potassium 3.5 mmol/L (3.5-5.1); Protein, Total 5.7 g/dL (6.4-8.2); Sodium Level 124 mmol/L (136-145)
[2021-07-16] MEDS: Heparin Injection (Vial) 5,000 UNIT/ML VIAL 5000 UNIT SC ×2 (10:16→20:44)
--- NOTE | 2021-07-16 11:18 | ADDICTION ---
Spoke with Pt today bout going to residential treatment/ Pt declined. This worker informed him that if he returns he will not be able to be involved in the [facility] program unless he agrees to residential treatment.
[2021-07-16] MEDS: amLODIPine 5 MG Tablet PO (13:41)
[2021-07-16] MEDS: Thiamine Hydrochloride 100 MG Tablet 200 MG PO (13:42)
[2021-07-16] MEDS: Metoprolol(XL)Succ 25 MG Tablet PO (13:42)
[2021-07-16] MEDS: Pantoprazole Sodium 20 MG Tablet PO (13:42)
[2021-07-16] MEDS: Lisinopril 20 MG Tablet PO (13:42)
[2021-07-16] MEDS: Folic Acid/Vitamin B Comp W-C 1 Capsule 1 CAP PO (13:42)
[2021-07-16] MEDS: Folic Acid 1 MG Tablet PO (13:42)
--- NOTE | 2021-07-16 17:03 | PCM.PN.HOSP ---
Subjective Subjective Patient is rather somnolent this morning. He is currently on 2 mg of Ativan every 4 hours. I did discuss with nursing to hold his next dose and reevaluate him. He appears comfortable at this time and does awaken but does fall back to sleep easily. He snores extensively. He was able to eat lunch and dinner without problems last evening. Objective Data Objective Data Vital Signs: Vital Signs Temp Pulse Resp BP Pulse Ox 98.4 F 83 20 H 126/69 H 97 07/16/21 16:54 07/16/21 16:54 07/16/21 16:54 07/16/21 16:54 07/16/21 16:54 Oxygen Delivery Method Room Air Weight: 54.9 kg Body Mass Index (BMI) 27.5 Intake & Output: Intake and Output for Last 24 Hours 07/14/21 07/15/21 07/16/21 23:59 23:59 23:59 Intake Total 2500 / 2500 1803.33 / 1803.33 Output Total 500 / 500 1700 / 1700 Balance 1999 / 1999 103.33 / 103.33 Lab / Micro Data Result Diagrams: 07/16/21 07:05 07/16/21 07:05 Labs: Laboratory Results - last 24 hr 07/15/21 09:13: ESR 11 07/15/21 09:13: Serum Osmolality 276 07/15/21 09:13: Salicylates < 1.7 L 07/15/21 09:13: Cortisol 56.30 H 07/15/21 14:51: Ferritin 1643 H, Lactate Dehydrogenase 595 H, C-React Prot Ext Range 15.30 H 07/15/21 14:51: Uric Acid 8.0 H, Total Creatine Kinase 510 H, TSH 0.78 07/15/21 18:15: Urine Opiates Screen NEGATIVE, Urine Methadone Screen NEGATIVE, Ur Barbiturates Screen NEGATIVE, Ur Phencyclidine Scrn NEGATIVE, Ur Amphetamines Screen NEGATIVE, U Methamphetamin-MDMA POSITIVE H, U Benzodiazepines Scrn NEGATIVE, Urine Cocaine Screen NEGATIVE, U Cannabinoids Screen NEGATIVE, Ur Drug Screen Comment 07/15/21 18:15: Urine Osmolality 523, Ur Random Sodium 7 07/15/21 18:15: Urine Color Fe[place], Urine Clarity Clear, Urine pH 6.0, Ur Specific [place] 1.020, Urine Protein 30 H, Urine Glucose (UA) Normal, Urine Ketones 150 A*, Urine Occult Blood Negative, Urine Nitrite Negative, Urine Bilirubin 3 H, Urine Urobilinogen 8 H, Ur Leukocyte Esterase Negative, Urine RBC 0 SEEN, Urine WBC 0-5 SEEN, Ur Squamous Epith Cells 0-5 SEEN, Ur Transition Epith Cell 0-5 SEEN, Urine Bacteria 0 SEEN, Hyaline Casts 0-5 SEEN, Urine Mucus 0 SEEN 07/16/21 07:05: WBC 4.1 L, RBC 3.05 L, Hgb 8.7 L, Hct 26.3 L, MCV 86.2, MCH 28.5, MCHC 33.1, RDW Std Deviation 58.1 H, RDW Coeff of [place] 18.9 H, Plt Count 143 L, MPV 10.8, Immature Gran % (Auto) 1.500 H, Neut % (Auto) 77.8 H, Lymph % (Auto) 14.3 L, [place] % (Auto) 4.7, Eos % (Auto) 1.2, Baso % (Auto) 0.5, Absolute Neuts (auto) 3.2, Absolute Lymphs (auto) 0.58 L, Nucleated RBC % 0 07/16/21 07:05: Sodium 124 L, Potassium 3.5, Chloride 90 L, Carbon Dioxide 20.0 L, Anion Gap 14, BUN 15, Creatinine 1.00, Estim Creat Clear Calc 63.29, Est GFR (MDRD) Af Amer 99, Est GFR (MDRD) Non-Af 82, BUN/Creatinine Ratio 15.0, Glucose 146 H, Calcium 7.9 L, Phosphorus 1.1 L*, Magnesium 1.9, Total Bilirubin 5.90 H, AST 903 H, ALT 367 H, Alkaline Phosphatase 484 H, Total Protein 5.7 L, Albumin 2.3 L, Globulin 3.4, Albumin/Globulin Ratio 0.7 L Micro: Microbiology 07/15/21 10:25 Nasal Secretion SARS-CoV-2 Antigen (Rapid) - Final ABG Data ABG results: ABG 07/15/21 18:43 Specimen Type ART Sample Site R Radial pH 7.44 Bicarbonate Actual 21.3 L Total CO2 22 Base Excess -3 L O2 Saturation 96 O2 % 21 ABG pCO2 31.6 L ABG pO2 76 Monster Test Positive O2 Delivery Device Room Air Radiography Diagnostic Testing: Radiology Impression Abdomen/Pelvis CT 07/15/21 16:55 IMPRESSION: 1. Enlarged fatty infiltrated liver without mass. 2. Otherwise normal CT of the abdomen and pelvis. Electronically Signed: Shorty Talley DO at 18:49 EST Tel [phone], Service support , Physical Exam Const alert, oriented x3 and no apparent distress Constitutional Narrative: Over white male lying in bed, sleeping fairly soundly and snoring quite extensively, does arouse and answers questions to noxious stimulus but falls back to sleep very quickly, no significant signs of active withdrawal at this time. General Appearance: cooperative Exam Limitations: altered mental status HEENT normocephalic, head/scalp atraumatic, hearing grossly normal bilaterally and moist oral mucous membranes HEENT Narrative: Mallampati 3, no thrush Head and Scalp: normocephalic Resp normal respiratory effort, no retractions, no use of accessory muscles and clear to auscultation bilaterally Auscultation: Negative for crackles, rales, rhonchi or wheezes Cardio regular rate, regular rhythm, S1 normal heart sound, S2 normal heart sound, no murmurs, no rub, no gallops, no clicks and no JVD GI normal to inspection, nondistended, normoactive bowel sounds, soft to palpation, non-distended and hepatosplenomegaly GI Narrative: Hepatomegaly present Palpation: tender RUQ (Mild) Extremity no clubbing, cyanosis or edema Peripheral Pulses: Yes pulses 2+ throughout Neuro moves all extremities and no focal motor deficits Neuro Narrative: Sleeping soundly, no tremor at this time, awakens to noxious stimulus, mild confusion Assessment & Plan Assessment/Plan (1) Thrombocytopenia: (2) Metabolic acidosis: (3) Hyperbilirubinemia: (4) Hepatitis: (5) Alcohol withdrawal: (6) Acute hyponatremia: (7) Hypophosphatemia: PLAN: Acute alcohol withdrawal -Still unable to use phenobarb taper since he has marked liver enzyme elevation -Continue Ativan taper ordered with [facility] protocol -Patient decompensates from a withdrawal standpoint would recommend transfer to the ICU and initiation of Precedex -supportive medications -Thiamine 200 mg x 3 days -Folate 1 mg daily -180 consultation -I highly recommended to him inpatient rehab as he has failed multiple attempts at outpatient rehab programs -He apparently was resistant to this later this afternoon I will rediscuss this with him tomorrow when he is more awake Acute hyponatremia -Suspect this has been a slow decline over time given his neurological status at this point -Patient with multiple risk factors for hyponatremia including chronic alcohol use, poor solute intake, potential SIADH with home medication use -Slowly trending up with a serum sodium this morning of 124 -Baseline sodium appears to be 135-140 -We will discontinue IV fluids as patient is able to take liquids -Serum osmolality was normal and urine osmolality was 523 with a urine sodium of 7 -TSH was normal and cortisol was elevated -Hold home Abilify, bupropion, Lexapro Hypophosphatemia -We will give K-Phos bolus -Repeat a.m. lab Acute hepatitis with hyperbilirubinemia -Suspect alcoholic induced hepatitis but unable to rule out other causes -Liver enzymes are slowly trending down -Acute hepatitis panel pending -Is jaundiced on exam -CT of the abdomen shows hepatomegaly but no ascites or nodularity -Coagulation studies are normal -Hold atorvastatin -CK is mildly elevated at 510--> repeat in a.m. -May need liver biopsy -GI following Anion gap metabolic acidosis -Suspect combination of alcoholic ketosis and starvation ketosis -Alcohol level was not significantly elevated -Slowly improving his anion gap has closed to 14 today and serum bicarb is up to 20 -Patient was alkalotic on ABG Thrombocytopenia -Suspect marrow toxicity related as he seems to have thrombocytopenia that ebbs and flows depending on his alcohol intake -Stable at the present time -Monitor clinically -Repeat lab in a.m. Hypertension -Continue amlodipine 5 mg daily -Continue lisinopril 20 mg daily -Continue metoprolol 20 daily GERD -Continue Protonix 20 mg daily Bipolar disease/depression/anxiety -Hold home medications with current liver dysfunction DVT prophylaxis -Lovenox 40 mg subcu daily CODE STATUS -Full code Charges/Coding Visit Charges Inpatient E&M: 01853 Subs Hosp L2
--- NOTE | 2021-07-16 17:25 | EX.PCM.PN.GI ---
Subjective Subjective Patient's day has been uneventful. He is not exhibiting signs of DTs at this time. He is not having any signs of hematochezia, melena or hematemesis. Objective Data Objective Data Vital Signs: Vital Signs Temp Pulse Resp BP Pulse Ox 98.4 F 83 20 H 126/69 H 97 07/16/21 16:54 07/16/21 16:54 07/16/21 16:54 07/16/21 16:54 07/16/21 16:54 Oxygen Delivery Method Room Air Weight: 121 lb 0.54 oz Body Mass Index (BMI) 27.5 Intake & Output: Intake and Output for Last 24 Hours 07/14/21 07/15/21 07/16/21 23:59 23:59 23:59 Intake Total 2500 / 2500 1803.33 / 1803.33 Output Total 500 / 500 1700 / 1700 Balance 1999 / 1999 103.33 / 103.33 Lab / Micro Data Result Diagrams: 07/16/21 07:05 07/16/21 07:05 Labs: Laboratory Results - last 24 hr 07/15/21 09:13: ESR 11 07/15/21 09:13: Serum Osmolality 276 07/15/21 09:13: Salicylates < 1.7 L 07/15/21 09:13: Cortisol 56.30 H 07/15/21 14:51: Ferritin 1643 H, Lactate Dehydrogenase 595 H, C-React Prot Ext Range 15.30 H 07/15/21 14:51: Uric Acid 8.0 H, Total Creatine Kinase 510 H, TSH 0.78 07/15/21 18:15: Urine Opiates Screen NEGATIVE, Urine Methadone Screen NEGATIVE, Ur Barbiturates Screen NEGATIVE, Ur Phencyclidine Scrn NEGATIVE, Ur Amphetamines Screen NEGATIVE, U Methamphetamin-MDMA POSITIVE H, U Benzodiazepines Scrn NEGATIVE, Urine Cocaine Screen NEGATIVE, U Cannabinoids Screen NEGATIVE, Ur Drug Screen Comment 07/15/21 18:15: Urine Osmolality 523, Ur Random Sodium 7 07/15/21 18:15: Urine Color [place], Urine Clarity Clear, Urine pH 6.0, Ur Specific [place] 1.020, Urine Protein 30 H, Urine Glucose (UA) Normal, Urine Ketones 150 A*, Urine Occult Blood Negative, Urine Nitrite Negative, Urine Bilirubin 3 H, Urine Urobilinogen 8 H, Ur Leukocyte Esterase Negative, Urine RBC 0 SEEN, Urine WBC 0-5 SEEN, Ur Squamous Epith Cells 0-5 SEEN, Ur Transition Epith Cell 0-5 SEEN, Urine Bacteria 0 SEEN, Hyaline Casts 0-5 SEEN, Urine Mucus 0 SEEN 07/16/21 07:05: WBC 4.1 L, RBC 3.05 L, Hgb 8.7 L, Hct 26.3 L, MCV 86.2, MCH 28.5, MCHC 33.1, RDW Std Deviation 58.1 H, RDW Coeff of [place] 18.9 H, Plt Count 143 L, MPV 10.8, Immature Gran % (Auto) 1.500 H, Neut % (Auto) 77.8 H, Lymph % (Auto) 14.3 L, [place] % (Auto) 4.7, Eos % (Auto) 1.2, Baso % (Auto) 0.5, Absolute Neuts (auto) 3.2, Absolute Lymphs (auto) 0.58 L, Nucleated RBC % 0 07/16/21 07:05: Sodium 124 L, Potassium 3.5, Chloride 90 L, Carbon Dioxide 20.0 L, Anion Gap 14, BUN 15, Creatinine 1.00, Estim Creat Clear Calc 63.29, Est GFR (MDRD) Af Amer 99, Est GFR (MDRD) Non-Af 82, BUN/Creatinine Ratio 15.0, Glucose 146 H, Calcium 7.9 L, Phosphorus 1.1 L*, Magnesium 1.9, Total Bilirubin 5.90 H, AST 903 H, ALT 367 H, Alkaline Phosphatase 484 H, Total Protein 5.7 L, Albumin 2.3 L, Globulin 3.4, Albumin/Globulin Ratio 0.7 L Micro: Microbiology 07/15/21 10:25 Nasal Secretion SARS-CoV-2 Antigen (Rapid) - Final ABG Data ABG results: ABG 07/15/21 18:43 Specimen Type ART Sample Site R Radial pH 7.44 Bicarbonate Actual 21.3 L Total CO2 22 Base Excess -3 L O2 Saturation 96 O2 % 21 ABG pCO2 31.6 L ABG pO2 76 Monster Test Positive O2 Delivery Device Room Air Radiography Diagnostic Testing: Radiology Impression Abdomen/Pelvis CT 07/15/21 16:55 IMPRESSION: 1. Enlarged fatty infiltrated liver without mass. 2. Otherwise normal CT of the abdomen and pelvis. Electronically Signed: Shorty Talley DO at 18:49 EST Tel [phone], Service support , Physical Exam Const alert General Appearance: cooperative Orientation / Consciousness: oriented to person HEENT hearing grossly normal bilaterally Head and Scalp: normal to inspection Face and Sinus: face symmetric Nose: external nose normal Mouth: oral and palatal mucosa normal Eyes conjunctivae normal General Eye: normal appearance of both eyes Neck full ROM General: normal visual inspection Lymph Lymphatic: no lymphadenopathy noted Chest inspection of chest normal and palpation of chest normal Chest: symmetrical chest wall rise Resp normal respiratory effort Effort and Inspection: able to speak in complete sentences Cardio regular rate GI non-distended Percussion: normal to percussion Rectal Exam: deferred Neuro Speech: speech normal Gait (Neuro): normal gait Assessment & Plan Assessment/Plan (1) Thrombocytopenia: PLAN: His platelet count is about the same. I agree with primary team that his thrombocytopenia is likely secondary to bone marrow toxicity as he does not have a significant amount of splenomegaly seen on imaging that would contribute to thrombocytopenia. He is not showing any signs of bleeding at this time. (2) Alcoholic hepatitis: QUALIFIERS: Ascites presence: without ascites Qualified Code(s): K70.10 - Alcoholic hepatitis without ascites PLAN: His liver function tests and liver enzymes continue to improve without the use of steroids. His Madre score for alcoholic hepatitis was 65 on admission. Slowly decrease down to 38. There is no indication for steroids at this time as he is improving and not showing any signs of encephalopathy. (3) Acute alcoholic pancreatitis: QUALIFIERS: Acute pancreatitis complication: no infection or necrosis Qualified Code(s): K85.20 - Alcohol induced acute pancreatitis without necrosis or infection PLAN: Mild hyper lipaseemia likely secondary to alcohol induced injury to the pancreas. Is not seem to be any sequela from likely acute on chronic pancreatitis at this time. (4) Hepatitis: PLAN: Hepatitis is multifactorial. There is definitely elements of alcoholic hepatitis. Also the diagnosis would be ischemic colitis and possibly underlying chronic liver disease and not secondary to alcoholism. Work-up is in progress. Charges/Coding Visit Charges Inpatient E&M: 71666 Subs Hosp L3
[2021-07-16] MEDS: Gabapentin 300 MG Capsule PO (20:44)
[2021-07-16] MEDS: traZODone 100 MG Tablet PO (20:44)
[2021-07-16] MEDS: LORazepam 2 MG/ML Syringe IV (23:07)
[2021-07-17] VITALS (8 sets, daily range): BP systolic 116–150; BP diastolic 69–81; PULSE 72–90; RESP 18–21; TEMP 35.8–37; O2SAT 94–99
[2021-07-17] MEDS: hydrOXYzine PAM 25 MG Capsule 50 MG PO ×2 (00:32→18:48)
[2021-07-17] MEDS: LORazepam 1 MG Tablet 0.5 MG PO ×6 (01:48→22:34)
[2021-07-17] MEDS: 0.9% Saline Lock 10 ML Syringe IV (05:55)
[2021-07-17 08:31] LABS: Haptoglobin 107 mg/dL (29-370)
[2021-07-17] MEDS: 0.9% Normal Saline 1,000 ML 100 ML IV ×2 (08:38→18:49)
[2021-07-17] MEDS: Metoprolol(XL)Succ 25 MG Tablet PO (09:29)
[2021-07-17] MEDS: Heparin Injection (Vial) 5,000 UNIT/ML VIAL 5000 UNIT SC ×2 (09:29→22:41)
[2021-07-17] MEDS: Folic Acid/Vitamin B Comp W-C 1 Capsule 1 CAP PO (09:29)
[2021-07-17] MEDS: Pantoprazole Sodium 20 MG Tablet PO (09:29)
[2021-07-17] MEDS: Gabapentin 300 MG Capsule PO (09:29)
[2021-07-17] MEDS: amLODIPine 5 MG Tablet PO (09:29)
[2021-07-17] MEDS: Thiamine Hydrochloride 100 MG Tablet 200 MG PO (09:30)
[2021-07-17] MEDS: Lisinopril 20 MG Tablet PO (09:30)
[2021-07-17] MEDS: Folic Acid 1 MG Tablet PO (09:30)
[2021-07-17 10:10] LABS: Absolute Lymphocyte Count 0.76 X10^3/uL (0.83-4.51); Absolute Neutrophil Count 2.3 X10^3/uL (2.0-7.7); Basophil# 0.03 X10^3/uL; Basophil% 0.9 % (0-1); Eosinophil# 0.06 X10^3/uL; Eosinophils% 1.7 % (0-5); Hemoglobin 9.4 g/dL (13.0-16.5); Lymphocyte # 0.76 X10^3/ul (0.83-4.51); Lymphocyte % 21.7 % (19-41); Mean Corp Hgb Conc 30.3 g/dL (32-36); Mean Corpuscular Hgb 27.2 pg (27.0-32.0); Mean Corpuscular Volume 89.9 fL (80-94); Mean Platelet Vol. 9.8 fl (6.2-12.0); Monocyte# 0.24 X10^3/uL; Monocyte% 6.9 % (0-10); NRBC Flagged by Analyzer 0 % (0-5); Neutrophil # 2.29 X10^3/uL (2.7-7.7); Neutrophil % 65.4 % (47-70); POSITIVE MORPHOLOGY YES; Platelet Count 155 K/mm3 (150-450); RBC Distribution Width CV 20.1 % (11.6-14.6); RBC Distribution Width SD 63.4 fl (35.1-43.9); Red Blood Count 3.45 M/mm3 (4.6-6.2); White Blood Count 3.5 K/mm3 (4.4-11.0)
[2021-07-17 10:14] LABS: Differential Indicated SCAN CRITERIA MET
[2021-07-17 10:36] LABS: Anisocytosis 2+; Basophilic Stippling 1+
[2021-07-17 10:58] LABS: ALB/GLOB Ratio 0.6 RATIO (0.9-2.4); AST(SGOT) 631 U/L (15-37); Alanine Aminotransfer ALT/SGPT 308 U/L (16-61); Albumin, Serum 2.3 g/dL (3.2-5.0); Alkaline Phosphatase 568 U/L (45-117); Anion Gap 8 (5-15); BUN 5 mg/dL (7-18); BUN/Creat Ratio 6.2 RATIO (10-20); Calcium,Total 8.6 mg/dL (8.5-10.1); Chloride 103 mmol/L (98-107); Creatinine, Serum 0.81 mg/dL (0.70-1.30); EST Glomerular Filtration Rate 104 mL/min (>60); Est Glom Filt Rate - Afr Amer 126 mL/min (>60); Estimated Creatinine Clearance 78.13 ml/min; Globulin 3.7 g/dL (2.2-4.2); Glucose 120 mg/dL (74-106); Potassium 3.4 mmol/L (3.5-5.1); Sodium Level 139 mmol/L (136-145)
[2021-07-17 11:22] LABS: CPK Total, Creatine Kinase 236 U/L (39-308); Phosphorus 1.8 mg/dL (2.5-4.9)
[2021-07-17 12:08] LABS: Anti-Centromere B Ab <0.2 AI (0.0-0.9); Anti-Chromatin <0.2 AI (0.0-0.9); Anti-Jo <0.2 AI (0.0-0.9); Anti-Scleroderma-70 AB <0.2 AI (0.0-0.9); Anti-ribosomal P Antibodies <0.2 AI (0.0-0.9); RNP Ab <0.2 AI (0.0-0.9); SJOGREN'S Anti-SS-A test < 0.2 AI (0.0-0.9); SJOGREN'S Anti-SS-B test < 0.2 AI (0.0-0.9); Smith Ab <0.2 AI (0.0-0.9); Smith/RNP Ab <0.2 AI (0.0-0.9)
[2021-07-17 12:12] LABS: Anti-dsDNA Ab 1 IU/mL (0-9)
[2021-07-17 14:07] LABS: HEPATITIS B SURFACE AG Negative (Negative); Hepatitis A IgM Antibody Negative (Negative); Hepatitis B Core AB IgM Negative (Negative)
--- NOTE | 2021-07-17 14:37 | PN.HOSP_ITS ---
Subjective Subjective Patient has not not exhibiting any signs of active withdrawal. He still has hiccups for which he was given Thorazine in the emergency department and had no relief. He has been able to eat and drink without any issues. He remains intermittently sleepy. Confused but awakens easily. Objective Data Objective Data Vital Signs: Vital Signs Temp Pulse Resp BP Pulse Ox 98.6 F 74 18 133/81 H 95 07/17/21 08:00 07/17/21 10:00 07/17/21 08:00 07/17/21 08:00 07/17/21 08:00 Oxygen Delivery Method Room Air Weight: 54.9 kg Body Mass Index (BMI) 27.5 Intake & Output: Intake and Output for Last 24 Hours 07/15/21 07/16/21 07/17/21 23:59 23:59 23:59 Intake Total 2500 / 2500 4016.6633 / 4016.6633 1000 / 1000 Output Total 500 / 500 4150 / 4150 2200 / 2200 Balance 1999 / 1999 -133.3367 / -133.3367 -1200 / -1200 Lab / Micro Data Result Diagrams: 07/17/21 09:49 07/17/21 09:49 Labs: Laboratory Results - last 24 hr 07/16/21 07:05: Diff Path Review November07/16/21 07:05: Haptoglobin 107 07/16/21 07:05: DEBORAH 8 Profile Comment, LUCIA-1 Antibody <0.2, SS-A/Ro IgG Antibody < 0.2, SS-B/La IgG Antibody < 0.2, Sm (Cuevas) Antibody <0.2, DENTAL ASSISTING INSTRUCTOR Antibody <0.2, Scl-70 Scleroderma Ab <0.2, Double Strand DNA Ab 1, Centromere B Antibody <0.2 07/17/21 09:49: Sodium 139, Potassium 3.4 L, Chloride 103, Carbon Dioxide 28.0, Anion Gap 8, BUN 5 L, Creatinine 0.81, Estim Creat Clear Calc 78.13, Est GFR (MDRD) Af Amer 126, Est GFR (MDRD) Non-Af 104, BUN/Creatinine Ratio 6.2 L, Glucose 120 H, Calcium 8.6, Total Bilirubin 6.70 H, AST 631 H, ALT 308 H, Alkaline Phosphatase 568 H, Total Protein 6.0 L, Albumin 2.3 L, Globulin 3.7, Albumin/Globulin Ratio 0.6 L 07/17/21 09:49: WBC 3.5 L, RBC 3.45 L, Hgb 9.4 L, Hct 31.0 L, MCV 89.9, MCH 27.2, MCHC 30.3 L D, RDW Std Deviation 63.4 H, RDW Coeff of [place] 20.1 H, Plt Count 155, MPV 9.8, Immature Gran % (Auto) 3.400 H, Neut % (Auto) 65.4, Lymph % (Auto) 21.7, [place] % (Auto) 6.9, Eos % (Auto) 1.7, Baso % (Auto) 0.9, Absolute Neuts (auto) 2.3, Absolute Lymphs (auto) 0.76 L, Nucleated RBC % 0, Basophilic Stippling 1+, Anisocytosis 2+ 07/17/21 09:49: Phosphorus 1.8 L, Total Creatine Kinase 236 Micro: Microbiology 07/15/21 10:25 Nasal Secretion SARS-CoV-2 Antigen (Rapid) - Final Physical Exam Const alert and no apparent distress Constitutional Narrative: Over white male lying in bed, sleeping fairly soundly but awakens with stimulus, confused and disoriented at this time, no tremor or signs of significant active withdrawal General Appearance: cooperative Orientation / Consciousness: confused and disoriented Exam Limitations: altered mental status HEENT normocephalic, head/scalp atraumatic, hearing grossly normal bilaterally and moist oral mucous membranes Head and Scalp: normocephalic Eyes Eyes Narrative: Positive scleral icterus Resp normal respiratory effort, no retractions, no use of accessory muscles and clear to auscultation bilaterally Auscultation: Negative for crackles, rales, rhonchi or wheezes Cardio regular rate, regular rhythm, S1 normal heart sound, S2 normal heart sound, no murmurs, no rub, no gallops, no clicks and no JVD GI normal to inspection, nondistended, normoactive bowel sounds, soft to palpation, non-distended and hepatosplenomegaly GI Narrative: Hepatomegaly present Palpation: tender RUQ (Mild) Extremity no clubbing, cyanosis or edema Peripheral Pulses: Yes pulses 2+ throughout Neuro Neuro Narrative: Confused, no significant tremor noted on exam, moves all extremities without any focal deficit Sensorium / Orientation: awake and alert Assessment & Plan Assessment/Plan (1) Thrombocytopenia: (2) Hyperbilirubinemia: (3) Hepatitis: (4) Alcohol withdrawal: (5) Acute hyponatremia: (6) Hypophosphatemia: PLAN: Acute alcohol withdrawal -Still unable to use phenobarb taper since he has marked liver enzyme elevation -Continue Ativan taper ordered with [facility] protocol -Patient decompensates from a withdrawal standpoint would recommend transfer to the ICU and initiation of Precedex -supportive medications -Thiamine 200 mg x 3 days and should be completed tomorrow -Folate 1 mg daily -180 following -I highly recommended to him inpatient rehab as he has failed multiple attempts at outpatient rehab programs -Patient has been resistant we will discuss when he is more awake and oriented Acute hyponatremia -Resolved Hypophosphatemia -Oral phosphorus supplementation -Repeat a.m. Hypokalemia -Oral potassium supplementation -Repeat in a.m. Acute hepatitis with hyperbilirubinemia -Suspect alcoholic induced hepatitis but unable to rule out other causes -Liver enzymes continue to trend down however bilirubin remains elevated -Suspect bilirubin will be the last liver enzymes to improve -Acute hepatitis panel pending -autoimmune workup pending -Patient remains jaundiced on exam -CT of the abdomen shows hepatomegaly but no ascites or nodularity -Coagulation studies are normal -Continue to hold atorvastatin -CK has normalized -May need liver biopsy -GI following Anion gap metabolic acidosis -resolved Thrombocytopenia -Suspect marrow toxicity related as he seems to have thrombocytopenia that ebbs and flows depending on his alcohol intake -resolved Hypertension -Continue amlodipine 5 mg daily -Continue lisinopril 20 mg daily -Continue metoprolol 20 daily GERD -Continue Protonix 20 mg daily Bipolar disease/depression/anxiety -restart home meds tomorrow if LFT continue to trend down DVT prophylaxis -Lovenox 40 mg subcu daily CODE STATUS -Full code Charges/Coding Visit Charges Inpatient E&M: 22825 Subs Hosp L2
[2021-07-17] MEDS: Potassium Chloride Oral Tablet 20 MEQ 40 MEQ PO (16:09)
[2021-07-17] MEDS: Na Biphos/Potassium Phosphate PACKET 1 PACKET PO ×2 (16:09→22:41)
[2021-07-17] MEDS: Dicyclomine 10 MG Capsule 20 MG PO (18:48)
[2021-07-17] MEDS: traZODone 100 MG Tablet PO (22:41)
[2021-07-18] VITALS (9 sets, daily range): BP systolic 116–131; BP diastolic 60–82; PULSE 75–92; RESP 16–20; TEMP 36.7–36.8; O2SAT 95–98
[2021-07-18] MEDS: Gabapentin 300 MG Capsule PO ×2 (01:15→19:48)
[2021-07-18] MEDS: LORazepam 1 MG Tablet 2 MG PO (01:35)
[2021-07-18] MEDS: 0.9% Normal Saline 1,000 ML 100 ML IV ×2 (04:17→22:27)
[2021-07-18] MEDS: LORazepam 1 MG Tablet 0.5 MG PO ×4 (04:17→21:36)
[2021-07-18] MEDS: Na Biphos/Potassium Phosphate PACKET 1 PACKET PO (04:19)
[2021-07-18 05:22] LABS: ALB/GLOB Ratio 0.6 RATIO (0.9-2.4); AST(SGOT) 485 U/L (15-37); Alanine Aminotransfer ALT/SGPT 261 U/L (16-61); Albumin, Serum 2.1 g/dL (3.2-5.0); Alkaline Phosphatase 527 U/L (45-117); Anion Gap 8 (5-15); BUN 4 mg/dL (7-18); BUN/Creat Ratio 5.1 RATIO (10-20); Calcium,Total 8.1 mg/dL (8.5-10.1); Chloride 99 mmol/L (98-107); Creatinine, Serum 0.78 mg/dL (0.70-1.30); EST Glomerular Filtration Rate 108 mL/min (>60); Est Glom Filt Rate - Afr Amer 131 mL/min (>60); Estimated Creatinine Clearance 94.29 ml/min; Globulin 3.6 g/dL (2.2-4.2); Glucose 138 mg/dL (74-106); Potassium 3.6 mmol/L (3.5-5.1); Protein, Total 5.7 g/dL (6.4-8.2); Sodium Level 136 mmol/L (136-145)
[2021-07-18 05:41] LABS: Phosphorus 1.4 mg/dL (2.5-4.9)
[2021-07-18 07:25] LABS: Anti-Smooth Muscle ABS 6 Units (0-19); Hep C Antibodies <0.1 s/co ratio (0.0-0.9)
[2021-07-18 07:26] LABS: Anti-Mitochondrial AB <20.0 Units (0.0-20.0)
--- NOTE | 2021-07-18 08:01 | NURSING ---
left a voice mail (after pt gave permission to contact her)-asked her to call his son and tell him he will not make appt scheduled today
[2021-07-18] MEDS: Folic Acid 1 MG Tablet PO (08:52)
[2021-07-18] MEDS: Thiamine Hydrochloride 100 MG Tablet 200 MG PO (08:52)
[2021-07-18] MEDS: Folic Acid/Vitamin B Comp W-C 1 Capsule 1 CAP PO (08:53)
[2021-07-18] MEDS: Heparin Injection (Vial) 5,000 UNIT/ML VIAL 5000 UNIT SC ×2 (08:53→21:36)
[2021-07-18] MEDS: Pantoprazole Sodium 20 MG Tablet PO (08:54)
[2021-07-18] MEDS: Lisinopril 20 MG Tablet PO (08:54)
[2021-07-18] MEDS: Metoprolol(XL)Succ 25 MG Tablet PO (08:54)
--- NOTE | 2021-07-18 10:00 | ADDICTION ---
TW checked in with pt to identify any needs he may have. Pt appeared disoriented and took long pauses to answer questions. Pt stated his disinterest in residential at this time and communicated that he would f/u with Iza, his individual therapist upon release. TW encouraged pt to reach out to nursing staff to alert us if his needs changed.
[2021-07-18] MEDS: amLODIPine 5 MG Tablet PO (10:05)
[2021-07-18 10:07] LABS: HEPATITIS B SURFACE AG Negative (Negative); Hepatitis A IgM Antibody Negative (Negative); Hepatitis B Core AB IgM Negative (Negative)
[2021-07-18 10:11] LABS: Hep C Antibodies 0.1 s/co ratio (0.0-0.9)
--- NOTE | 2021-07-18 10:28 | PCM.PN.HOSP ---
Subjective Subjective No issues overnight. Hiccups have been better overall. Patient is more alert and oriented and appropriate today. No specific complaints at this time. Patient remains drowsy. We did discuss and I encouraged inpatient treatment as I feel that this will increase his likelihood of success. Objective Data Objective Data Vital Signs: Vital Signs Temp Pulse Resp BP Pulse Ox 98.2 F 78 16 130/78 H 95 07/18/21 08:11 07/18/21 08:54 07/18/21 08:11 07/18/21 08:11 07/18/21 09:06 Oxygen Delivery Method Room Air Weight: 174.2 kg Body Mass Index (BMI) 27.5 Intake & Output: Intake and Output for Last 24 Hours 07/16/21 07/17/21 07/18/21 23:59 23:59 23:59 Intake Total 4016.6633 / 4016.6633 3137 / 3137 1361.67 / 1361.67 Output Total 4150 / 4150 5000 / 5000 2300 / 2300 Balance -133.3367 / -133.3367 -1863 / -1863 -938.33 / -938.33 Lab / Micro Data Result Diagrams: 07/17/21 09:49 07/18/21 04:10 Labs: Laboratory Results - last 24 hr 07/15/21 10:50: Hepatitis A IgM Ab Negative, Hep Bs Antigen Negative, Hep B Core IgM Ab Negative, Hepatitis C Ab (EIA) 0.1 07/16/21 07:05: Anti-Mitochondrial Ab <20.0 07/16/21 07:05: Anti-Smooth Muscle Ab 6, Hepatitis A IgM Ab Negative, Hep Bs Antigen Negative, Hep B Core IgM Ab Negative, Hepatitis C Ab (EIA) <0.1 07/16/21 07:05: DEBORAH 8 Profile Comment, LUCIA-1 Antibody <0.2, SS-A/Ro IgG Antibody < 0.2, SS-B/La IgG Antibody < 0.2, Sm (Cuevas) Antibody <0.2, ECHOCARDIOGRAPH TECHNICIAN Antibody <0.2, Scl-70 Scleroderma Ab <0.2, Double Strand DNA Ab 1, Centromere B Antibody <0.2 07/17/21 09:49: Sodium 139, Potassium 3.4 L, Chloride 103, Carbon Dioxide 28.0, Anion Gap 8, BUN 5 L, Creatinine 0.81, Estim Creat Clear Calc 78.13, Est GFR (MDRD) Af Amer 126, Est GFR (MDRD) Non-Af 104, BUN/Creatinine Ratio 6.2 L, Glucose 120 H, Calcium 8.6, Total Bilirubin 6.70 H, AST 631 H, ALT 308 H, Alkaline Phosphatase 568 H, Total Protein 6.0 L, Albumin 2.3 L, Globulin 3.7, Albumin/Globulin Ratio 0.6 L 07/17/21 09:49: Basophilic Stippling 1+, Anisocytosis 2+ 07/17/21 09:49: Phosphorus 1.8 L, Total Creatine Kinase 236 07/18/21 04:10: Sodium 136, Potassium 3.6, Chloride 99, Carbon Dioxide 29.0, Anion Gap 8, BUN 4 L, Creatinine 0.78, Estim Creat Clear Calc 94.29, Est GFR (MDRD) Af Amer 131, Est GFR (MDRD) Non-Af 108, BUN/Creatinine Ratio 5.1 L, Glucose 138 H, Calcium 8.1 L, Total Bilirubin 6.00 H, AST 485 H, ALT 261 H, Alkaline Phosphatase 527 H, Total Protein 5.7 L, Albumin 2.1 L, Globulin 3.6, Albumin/Globulin Ratio 0.6 L 07/18/21 04:10: Phosphorus 1.4 L Micro: Microbiology 07/15/21 10:25 Nasal Secretion SARS-CoV-2 Antigen (Rapid) - Final Physical Exam Const alert, oriented x3 and no apparent distress Constitutional Narrative: Middle-aged white male lying in bed, awake but drowsy, alert and oriented today but response times remain a little bit slow. General Appearance: cooperative Orientation / Consciousness: confused and disoriented Exam Limitations: no limitations HEENT normocephalic, head/scalp atraumatic, hearing grossly normal bilaterally and moist oral mucous membranes Head and Scalp: normocephalic Resp normal respiratory effort, no retractions, no use of accessory muscles and clear to auscultation bilaterally Auscultation: Negative for crackles, rales, rhonchi or wheezes Cardio regular rate, regular rhythm, S1 normal heart sound, S2 normal heart sound, no murmurs, no rub, no gallops, no clicks and no JVD GI normal to inspection, nondistended, normoactive bowel sounds, soft to palpation, non-distended and hepatosplenomegaly GI Narrative: Hepatomegaly present Palpation: tender RUQ (Mild) Extremity no clubbing, cyanosis or edema Peripheral Pulses: Yes pulses 2+ throughout Neuro oriented x3, moves all extremities and no focal motor deficits Neuro Narrative: Patient is alert and oriented now, no tremor, response times are still slightly slow but much more appropriate Sensorium / Orientation: awake and alert Speech: speech normal Assessment & Plan Assessment/Plan (1) Thrombocytopenia: (2) Hyperbilirubinemia: (3) Hepatitis: (4) Alcohol withdrawal: (5) Acute hyponatremia: (6) Hypophosphatemia: PLAN: Acute alcohol withdrawal -Still unable to use phenobarb taper since he has marked liver enzyme elevation -Continue Ativan taper ordered with [facility] protocol -supportive medications -Patient completed 3 days of thiamine 200 mg -Continue folate 1 mg daily -180 following -I highly recommended to him inpatient rehab as he has failed multiple attempts at outpatient rehab programs -I did reiterate with him today the inpatient rehab would be recommended Acute hyponatremia -Resolved Hypophosphatemia -40 mmol IV replacement -Repeat a.m. Hypokalemia -Resolved Acute hepatitis with hyperbilirubinemia -Suspect alcoholic induced hepatitis but unable to rule out other causes -Liver enzymes continue to trend down -Suspect bilirubin will be the last liver enzymes to improve -Acute hepatitis panel was negative -autoimmune workup was unremarkable -CT of the abdomen shows hepatomegaly but no ascites or nodularity -Coagulation studies are normal -Continue to hold atorvastatin -May need liver biopsy -GI following Hypertension -Continue amlodipine 5 mg daily -Continue lisinopril 20 mg daily -Continue metoprolol 20 daily GERD -Continue Protonix 20 mg daily Bipolar disease/depression/anxiety -Home psych meds have been restarted DVT prophylaxis -Lovenox 40 mg subcu daily CODE STATUS -Full code Charges/Coding Visit Charges Inpatient E&M: 99144 Subs Hosp L2
[2021-07-18 19:06] LABS: Ceruloplasmin 19.6 mg/dL (16.0-31.0)
[2021-07-18] MEDS: traZODone 100 MG Tablet PO (21:36)
[2021-07-18] MEDS: Escitalopram Oxalate 10 MG Tablet PO (21:36)
[2021-07-19 03:41] VITALS: BP 128/76; PULSE 82; RESP 18; TEMP 36.8; O2SAT 96
[2021-07-19] MEDS: LORazepam 1 MG Tablet 0.5 MG PO ×3 (03:44→15:42)
[2021-07-19 06:16] LABS: Hematocrit 30.4 % (40-54); Hemoglobin 9.1 g/dL (13.0-16.5); Mean Corp Hgb Conc 29.9 g/dL (32-36); Mean Corpuscular Hgb 27.6 pg (27.0-32.0); Mean Corpuscular Volume 92.1 fL (80-94); Mean Platelet Vol. 10.3 fl (6.2-12.0); POSITIVE COUNT YES; POSITIVE MORPHOLOGY YES; Platelet Count 231 K/mm3 (150-450); RBC Distribution Width CV 21.2 % (11.6-14.6); RBC Distribution Width SD 69.5 fl (35.1-43.9); White Blood Count 4.3 K/mm3 (4.4-11.0)
[2021-07-19 06:19] LABS: Differential Indicated MANUAL DIFF
[2021-07-19 06:37] LABS: Absolute Neutrophil Count 2.3 X10^3/uL (2.0-7.7)
[2021-07-19 06:38] LABS: Absolute Lymphocyte Count 1.37 X10^3/uL (0.83-4.51); Anisocytosis 3+; Basophil 1 % (0-1); Eosinophil 2 % (0-5); Lymphocyte 32 % (19-41); Metamyelocyte 1 % (0-1); Monocyte 5 % (0-10); Myelocyte 4 % (0-0); Neutrophil-Band 6 % (0-5); Neutrophil-Segmented 47 % (47-70); Platelet Estimate ADEQUATE (ADEQ); Promyelocyte 2 % (0-0); Red Cell Morphology NORM C+C NORMAL (NORM C&C); Total Cells Counted 100 (MANUAL DIFF)
[2021-07-19 06:53] LABS: AST(SGOT) 343 U/L (15-37); Alanine Aminotransfer ALT/SGPT 229 U/L (16-61); Albumin, Serum 2.1 g/dL (3.2-5.0); Alkaline Phosphatase 547 U/L (45-117); Anion Gap 10 (5-15); BUN 4 mg/dL (7-18); BUN/Creat Ratio 5.2 RATIO (10-20); Bilirubin, Direct 3.92 mg/dL (0.00-0.30); Calcium,Total 8.7 mg/dL (8.5-10.1); Chloride 98 mmol/L (98-107); Creatinine, Serum 0.76 mg/dL (0.70-1.30); EST Glomerular Filtration Rate 112 mL/min (>60); Est Glom Filt Rate - Afr Amer 135 mL/min (>60); Estimated Creatinine Clearance 96.77 ml/min; Globulin 3.8 g/dL (2.2-4.2); Glucose 174 mg/dL (74-106); Potassium 3.6 mmol/L (3.5-5.1); Protein, Total 5.9 g/dL (6.4-8.2); Sodium Level 135 mmol/L (136-145)
[2021-07-19 06:57] LABS: Phosphorus 3.1 mg/dL (2.5-4.9)
[2021-07-19 07:37] VITALS: O2SAT 96
[2021-07-19] MEDS: 0.9% Normal Saline 1,000 ML 100 ML IV ×2 (08:55→18:07)
[2021-07-19] MEDS: Heparin Injection (Vial) 5,000 UNIT/ML VIAL 5000 UNIT SC ×2 (08:58→20:03)
[2021-07-19] MEDS: Thiamine Hydrochloride 100 MG Tablet 200 MG PO (08:58)
[2021-07-19] MEDS: Folic Acid 1 MG Tablet PO (08:58)
[2021-07-19 08:59] VITALS: BP 142/86; PULSE 86
[2021-07-19] MEDS: Pantoprazole Sodium 20 MG Tablet PO (08:59)
[2021-07-19] MEDS: buPROPion (XL) 300 MG TABLET.XL PO (08:59)
[2021-07-19] MEDS: amLODIPine 5 MG Tablet PO (08:59)
[2021-07-19] MEDS: Lisinopril 20 MG Tablet PO (08:59)
[2021-07-19] MEDS: Metoprolol(XL)Succ 25 MG Tablet PO (08:59)
[2021-07-19] MEDS: Folic Acid/Vitamin B Comp W-C 1 Capsule 1 CAP PO (08:59)
[2021-07-19 09:00] VITALS: BP 142/86; PULSE 86; RESP 16; TEMP 36.7; O2SAT 94
[2021-07-19] MEDS: hydrOXYzine PAM 25 MG Capsule 50 MG PO ×2 (11:13→18:11)
[2021-07-19] MEDS: ARIPiprazole 5 MG Tablet PO (11:13)
[2021-07-19] MEDS: Gabapentin 300 MG Capsule PO (11:13)
[2021-07-19] MEDS: Dicyclomine 10 MG Capsule 20 MG PO (11:13)
--- NOTE | 2021-07-19 11:50 | PN.HOSP_ITS ---
Subjective Subjective Patient seen and examined. He seemed quite jittery but had no active complaints. Review of systems otherwise negative. Bilirubin is 5.2 today and direct ligament is also elevated at 3.92. Offshoring Manager on board. Objective Data Objective Data Vital Signs: Vital Signs Temp Pulse Resp BP Pulse Ox 98.0 F 86 16 142/86 H 94 07/19/21 09:00 07/19/21 09:00 07/19/21 09:00 07/19/21 09:00 07/19/21 09:00 Oxygen Delivery Method Room Air Weight: 384 lb 0.724 oz Body Mass Index (BMI) 27.5 Intake & Output: Intake and Output for Last 24 Hours 07/17/21 07/18/21 07/19/21 23:59 23:59 23:59 Intake Total 3137 / 3137 2960.0033 / 2960.0033 1000 / 1000 Output Total 5000 / 5000 3375 / 3375 3025 / 3025 Balance -1863 / -1863 -414.9967 / -414.9967 -2024 / -2024 Lab / Micro Data Result Diagrams: 07/19/21 05:27 07/19/21 05:27 Labs: Laboratory Results - last 24 hr 07/19/21 05:27: Sodium 135 L, Potassium 3.6, Chloride 98, Carbon Dioxide 27.0, Anion Gap 10, BUN 4 L, Creatinine 0.76, Estim Creat Clear Calc 96.77, Est GFR (MDRD) Af Amer 135, Est GFR (MDRD) Non-Af 112, BUN/Creatinine Ratio 5.2 L, Glucose 174 H, Calcium 8.7, Total Bilirubin 4.80 H, Direct Bilirubin 3.92 H, AST 343 H, ALT 229 H, Alkaline Phosphatase 547 H, Total Protein 5.9 L, Albumin 2.1 L , Globulin 3.8 07/19/21 05:27: WBC 4.3 L, RBC 3.30 L, Hgb 9.1 L, Hct 30.4 L, MCV 92.1, MCH 27.6, MCHC 29.9 L, RDW Std Deviation 69.5 H, RDW Coeff of [place] 21.2 H, Plt Count 231, MPV 10.3, Neut % (Auto) Not Reportable, Absolute Neuts (auto) 2.3, Absolute Lymphs (auto) 1.37, Total Counted 100, Neutrophils % (Manual) 47, Band Neutrop hils % 6 H, Lymphocytes % (Manual) 32, Monocytes % (Manual) 5, Eosinophils % (Manual) 2, Basophils % (Manual) 1, Metamyelocytes % 1, Myelocytes % 4 H, Pro myelocytes % 2 H, Diff Path Review November, Platelet Estimate ADEQUATE, RBC Morphology NORM C+C, Anisocytosis 3+ 07/19/21 05:27: Phosphorus 3.1 07/19/21 10:42: Ammonia 47.0 H Micro: Microbiology 07/15/21 10:25 Nasal Secretion SARS-CoV-2 Antigen (Rapid) - Final Physical Exam Const alert and oriented x3 Orientation / Consciousness: confused Exam Limitations: altered mental status HEENT head/scalp atraumatic and moist oral mucous membranes HEENT Narrative: jaundiced sclera Head and Scalp: normocephalic Eyes PERRL, EOMs intact bilaterally and conjunctivae normal Neck no lymphadenopathy, supple and no JVD Resp normal respiratory effort, no retractions, no use of accessory muscles and clear to auscultation bilaterally Cardio regular rate, regular rhythm, S1 normal heart sound, S2 normal heart sound, no murmurs and no gallops GI normal to inspection, nondistended, normoactive bowel sounds, soft to palpation, non-tender and non-distended Extremity normal to inspection, full ROM and no clubbing, cyanosis or edema Peripheral Pulses: Yes pulses 2+ throughout Skin Skin Narrative: jaundice Neuro Neuro Narrative: does seem to have episodes of confusion Sensorium / Orientation: awake and alert Psych affect normal Assessment & Plan Assessment/Plan (1) Acute alcoholic pancreatitis: QUALIFIERS: Acute pancreatitis complication: no infection or necrosis Qualified Code(s): K85.20 - Alcohol induced acute pancreatitis without necrosis or infection (2) Alcoholic hepatitis: QUALIFIERS: Ascites presence: without ascites Qualified Code(s): K70.10 - Alcoholic hepatitis without ascites (3) Alcohol withdrawal: PLAN: #Acute alcohol withdrawal * on ativan taper. Couldnt get phenobarbital due to his deranged liver enzymes * thiamine, folic acid and multivitamins. * monitor CIWA score * #Hepatitis * Multifactorial but alcohol definitely playing a role. * Bilirubin remains elevated and also has direct bilirubinemia. * Atorvastatin on hold. Gastroenterology on board. CT of the abdomen showed hepatomegaly but no evidence of ascites or nodularity. * Gastroenterology on board. * MDF score was 65 on admission and gradually trended down to 38. Per gastroenterology no indication for steroids aside now as he is improving * check ammonia level * * #THrombocytopenia: Resolved #Alcoholic pancreatitis: improving. Denies any abdominal pain. Will monitor. #Hypertension: On amlodipine and lisinopril as well as metoprolol #GERD: On Protonix #Depression and anxiety as well as bipolar disorder: * On Abilify, bupropion and escitalopram * #Hyponatremia: Resolved #Urine retention: Has had a Andrea catheter in since admission. Will DC Andrea for urine voiding trial. Start on Flomax 0.4 mg daily. #Hypophosphatemia: Replace. Will trend. DVT prophylaxis: SCDs Charges/Coding Visit Charges Inpatient E&M: 50587 Subs Hosp L3
[2021-07-19 12:16] LABS: Copper, Serum or Plasma 75 ug/dL (69-132)
[2021-07-19 13:31] LABS: Pathologist Review Reviewed
[2021-07-19 13:56] LABS: Pathologist Review Reviewed
--- NOTE | 2021-07-19 14:02 | NURSING ---
Bed exit alarm is going off and pt is sitting on edge of bed. Pt states he wants to go home. Pt hiccuping continuously. this nurse explained that medically he should not leave that his ammonia level is high and needs to stay otherwise could get worse. Pt is slow to respond but is A&OX3. This nurse offered Ativan and pt refused. this nurse informed Elyssa RYAN of this and Cortexted Dr. Wan.
--- NOTE | 2021-07-19 14:12 | NURSING ---
Dr. Wan is aware that pt wants to leave AMA and stated via the phone if he wants to leave AMA there is nothing I can do to stop him. Dr. Wan is aware of his Ammonia level being high.
[2021-07-19] MEDS: Lactulose 20 GM/30 ML UDC PO ×2 (14:26→19:56)
[2021-07-19 14:27] VITALS: BP 137/88; PULSE 103; RESP 18; TEMP 36.7; O2SAT 96
[2021-07-19] MEDS: Tamsulosin HCl 0.4 MG Capsule PO (15:43)
--- NOTE | 2021-07-19 17:57 | PN.GI_ITS ---
Subjective Subjective Patient still is lethargic. He said he is feeling a bit better. However he said he has not had a bowel movement in several days. He normally takes a stool softener at home. He says that his urine is still very dark. Objective Data Objective Data Vital Signs: Vital Signs Temp Pulse Resp BP Pulse Ox 98.0 F 103 H 18 137/88 H 96 07/19/21 14:27 07/19/21 14:27 07/19/21 14:27 07/19/21 14:27 07/19/21 14:27 Oxygen Delivery Method Room Air Weight: 174 lb 2.643 oz Body Mass Index (BMI) 27.5 Intake & Output: Intake and Output for Last 24 Hours 07/17/21 07/18/21 07/19/21 23:59 23:59 23:59 Intake Total 3137 / 3137 2960.0033 / 2960.0033 1000 / 1000 Output Total 5000 / 5000 3375 / 3375 3200 / 3200 Balance -1863 / -1863 -414.9967 / -414.9967 -2200 / -2200 Lab / Micro Data Result Diagrams: 07/19/21 05:27 07/19/21 05:27 Labs: Laboratory Results - last 24 hr 07/16/21 07:05: Diff Path Review Reviewed 07/16/21 07:05: Ceruloplasmin 19.6, Serum Copper 75 07/16/21 07:05: DEBORAH Screen Not Reportable 07/19/21 05:27: Sodium 135 L, Potassium 3.6, Chloride 98, Carbon Dioxide 27.0, Anion Gap 10, BUN 4 L, Creatinine 0.76, Estim Creat Clear Calc 96.77, Est GFR (MDRD) Af Amer 135, Est GFR (MDRD) Non-Af 112, BUN/Creatinine Ratio 5.2 L, Glucose 174 H, Calcium 8.7, Total Bilirubin 4.80 H, Direct Bilirubin 3.92 H, AST 343 H, ALT 229 H, Alkaline Phosphatase 547 H, Total Protein 5.9 L, Albumin 2.1 L , Globulin 3.8 07/19/21 05:27: WBC 4.3 L, RBC 3.30 L, Hgb 9.1 L, Hct 30.4 L, MCV 92.1, MCH 27.6, MCHC 29.9 L, RDW Std Deviation 69.5 H, RDW Coeff of [place] 21.2 H, Plt Count 231, MPV 10.3, Neut % (Auto) Not Reportable, Absolute Neuts (auto) 2.3, Absolute Lymphs (auto) 1.37, Total Counted 100, Neutrophils % (Manual) 47, Band N eutrophils % 6 H, Lymphocytes % (Manual) 32, Monocytes % (Manual) 5, Eosinophils % (Manual) 2, Basophils % (Manual) 1, Metamyelocytes % 1, Myelocytes % 4 H, Promyelocytes % 2 H, Diff Path Review Reviewed, Platelet Estimate ADEQUATE, RBC Morphology NORM C+C, Anisocytosis 3+ 07/19/21 05:27: Phosphorus 3.1 07/19/21 10:42: Ammonia 47.0 H Micro: Microbiology 07/15/21 10:25 Nasal Secretion SARS-CoV-2 Antigen (Rapid) - Final Physical Exam Const alert General Appearance: cooperative Orientation / Consciousness: oriented to person HEENT hearing grossly normal bilaterally Head and Scalp: normal to inspection Face and Sinus: face symmetric Nose: external nose normal Mouth: oral and palatal mucosa normal Eyes conjunctivae normal General Eye: normal appearance of both eyes Neck full ROM General: normal visual inspection Lymph Lymphatic: no lymphadenopathy noted Chest inspection of chest normal and palpation of chest normal Chest: symmetrical chest wall rise Resp normal respiratory effort Effort and Inspection: able to speak in complete sentences Cardio regular rate GI non-distended Percussion: normal to percussion Rectal Exam: deferred Neuro Speech: speech normal Gait (Neuro): normal gait Assessment & Plan Assessment/Plan (1) Acute alcoholic pancreatitis: QUALIFIERS: Acute pancreatitis complication: no infection or necrosis Qualified Code(s): K85.20 - Alcohol induced acute pancreatitis without necrosis or infection PLAN: Patient has not shown any problems with abdominal pain or nausea vomiting at this time. We have not repeated a CT scan. He was a high Madrey score for alcoholic hepatitis. At the time he did not have any signs of encephalopathy, therefore steroids were not started. Currently his ammonia is up to 47. I will start him on lactulose therapy and Xifaxan while in the hospital.. (2) Alcoholic hepatitis: QUALIFIERS: Ascites presence: without ascites Qualified Code(s): K70.10 - Alcoholic hepatitis without ascites PLAN: His score for alcoholic hepatitis is improving without steroids or Pentoxifylline. (3) Thrombocytopenia: PLAN: Thrombocytopenia resolved likely secondary to acute alcohol toxicity to the bone marrow. (4) Anemia: PLAN: His hemoglobin is normally 14. Currently is at 9.1. I dropped down 8.7 and going back up to 9.1. Suggest that we do an upper endoscopy to look for signs of portal gastropathy and less likely varices. Charges/Coding Visit Charges Inpatient E&M: 29095 Subs Hosp L3
[2021-07-19] MEDS: Ensure Clear 120 ML Liquid PO (18:11)
[2021-07-19 19:47] VITALS: BP 136/94; PULSE 106; RESP 18; TEMP 37; O2SAT 96
[2021-07-19] MEDS: traZODone 100 MG Tablet PO (20:02)
[2021-07-19] MEDS: LORazepam 1 MG Tablet 2 MG PO (20:03)
[2021-07-19] MEDS: Escitalopram Oxalate 10 MG Tablet PO (20:03)
[2021-07-19] MEDS: Mag Hydrox/Al Hydrox/Simeth 30 ML UDC 15 ML PO (22:57)
[2021-07-20] VITALS (10 sets, daily range): BP systolic 123–150; BP diastolic 66–86; PULSE 77–95; RESP 15–18; TEMP 35.9–37.1; O2SAT 91–97; BMI 29.3
[2021-07-20] MEDS: 0.9% Normal Saline 1,000 ML 100 ML IV (02:45)
[2021-07-20 06:08] LABS: Mean Corpuscular Volume 93.5 fL (80-94); Mean Platelet Vol. 10.5 fl (6.2-12.0); POSITIVE COUNT YES; POSITIVE MORPHOLOGY YES; Platelet Count 263 K/mm3 (150-450); RBC Distribution Width CV 21.7 % (11.6-14.6); RBC Distribution Width SD 70.4 fl (35.1-43.9); Red Blood Count 3.21 M/mm3 (4.6-6.2); White Blood Count 6.3 K/mm3 (4.4-11.0)
[2021-07-20 06:11] LABS: Differential Indicated MANUAL DIFF
[2021-07-20 06:32] LABS: AST(SGOT) 233 U/L (15-37); Alanine Aminotransfer ALT/SGPT 194 U/L (16-61); Albumin, Serum 2.2 g/dL (3.2-5.0); Alkaline Phosphatase 531 U/L (45-117); Anion Gap 7 (5-15); BUN 7 mg/dL (7-18); BUN/Creat Ratio 8.5 RATIO (10-20); Bilirubin, Direct 3.21 mg/dL (0.00-0.30); Calcium,Total 9.1 mg/dL (8.5-10.1); Chloride 96 mmol/L (98-107); Creatinine, Serum 0.82 mg/dL (0.70-1.30); EST Glomerular Filtration Rate 103 mL/min (>60); Est Glom Filt Rate - Afr Amer 124 mL/min (>60); Estimated Creatinine Clearance 89.69 ml/min; Globulin 3.9 g/dL (2.2-4.2); Glucose 213 mg/dL (74-106); Potassium 3.8 mmol/L (3.5-5.1); Protein, Total 6.1 g/dL (6.4-8.2); Sodium Level 132 mmol/L (136-145)
[2021-07-20 06:36] LABS: Absolute Neutrophil Count 3.8 X10^3/uL (2.0-7.7)
[2021-07-20 06:37] LABS: Absolute Lymphocyte Count 1.44 X10^3/uL (0.83-4.51); Anisocytosis 3+; Atypical Lymphocyte 2+ %; Basophil 1 % (0-1); Eosinophil 1 % (0-5); Lymphocyte 23 % (19-41); Metamyelocyte 3 % (0-1); Monocyte 6 % (0-10); Myelocyte 5 % (0-0); Neutrophil-Band 9 % (0-5); Neutrophil-Segmented 52 % (47-70); Platelet Estimate ADEQUATE (ADEQ); Red Cell Morphology NORM C+C NORMAL (NORM C&C); Total Cells Counted 100 (MANUAL DIFF)
[2021-07-20] MEDS: Lisinopril 20 MG Tablet PO (08:52)
[2021-07-20] MEDS: amLODIPine 5 MG Tablet PO (08:52)
[2021-07-20] MEDS: Metoprolol(XL)Succ 25 MG Tablet PO (08:52)
[2021-07-20] MEDS: ARIPiprazole 5 MG Tablet PO (08:52)
[2021-07-20] MEDS: buPROPion (XL) 300 MG TABLET.XL PO (08:52)
--- NOTE | 2021-07-20 10:59 | ADDICTION ---
Addendum entered by Eliza Perdomo 07/21/21 11:16: Physicians can consult with Dr. Serrano if pt returns for detox. Original Note: This worker met with pt. Pt is declining residential treatment. This worker informed him that if he does not go to residential, due to his [facility] admits x6 for 2020, he will not be able to be a part of the [facility] program if he re-enters detox.
--- NOTE | 2021-07-20 13:25 | PN.HOSP_ITS ---
Subjective Subjective Patient seen and examined. He felt much better today and had no complaints. He said he is feeling better. Review of systems otherwise negative. He is due for EGD today to assess for portal gastropathy gastroenterology. Objective Data Objective Data Vital Signs: Vital Signs Temp Pulse Resp BP Pulse Ox 98.2 F 82 18 138/86 H 97 07/20/21 08:43 07/20/21 08:52 07/20/21 08:43 07/20/21 08:43 07/20/21 08:43 Oxygen Delivery Method Room Air Weight: 181 lb 10.574 oz Body Mass Index (BMI) 27.5 Intake & Output: Intake and Output for Last 24 Hours 07/18/21 07/19/21 07/20/21 23:59 23:59 23:59 Intake Total 2960.0033 / 2960.0033 1920 / 1920 863.33 / 863.33 Output Total 3375 / 3375 3200 / 3200 Balance -414.9967 / -414.9967 -1280 / -1280 863.33 / 863.33 Lab / Micro Data Result Diagrams: 07/20/21 04:56 07/20/21 04:56 Labs: Laboratory Results - last 24 hr 07/16/21 07:05: Diff Path Review Reviewed 07/16/21 07:05: Miscellaneous Test 07/16/21 07:05: DEBORAH Screen Not Reportable 07/19/21 05:27: Diff Path Review Reviewed 07/20/21 04:56: Sodium 132 L, Potassium 3.8, Chloride 96 L, Carbon Dioxide 29.0, Anion Gap 7, BUN 7, Creatinine 0.82, Estim Creat Clear Calc 89.69, Est GFR (MDRD) Af Amer 124, Est GFR (MDRD) Non-Af 103, BUN/Creatinine Ratio 8.5 L, Glucose 213 H, Calcium 9.1, Total Bilirubin 4.00 H, Direct Bilirubin 3.21 H, AST 233 H, ALT 194 H, Alkaline Phosphatase 531 H, Total Protein 6.1 L, Albumin 2.2 L , Globulin 3.9 07/20/21 04:56: WBC 6.3, RBC 3.21 L, Hgb 9.0 L, Hct 30.0 L, MCV 93.5, MCH 28.0, MCHC 30.0 L, RDW Std Deviation 70.4 H, RDW Coeff of [place] 21.7 H, Plt Count 263, MPV 10.5, Neut % (Auto) Not Reportable, Absolute Neuts (auto) 3.8, Absolute Lymphs (auto) 1.44, Total Counted 100, Neutrophils % (Manual) 52, Band Neutrophils % 9 H, Lymphocytes % (Manual) 23, Monocytes % (Manual) 6, E osinophils % (Manual) 1, Basophils % (Manual) 1, Metamyelocytes % 3 H, Myelocytes % 5 H, Diff Path Review May foll, Atypical Lymphocytes 2+, Platelet Estimate ADEQUATE, RBC Morphology NORM C+C, Anisocytosis 3+ Micro: Microbiology 07/15/21 10:25 Nasal Secretion SARS-CoV-2 Antigen (Rapid) - Final Physical Exam Const alert, oriented x3 and no apparent distress Constitutional Narrative: mch more alert and communicative today General Appearance: cooperative Exam Limitations: no limitations HEENT normocephalic, head/scalp atraumatic, hearing grossly normal bilaterally and moist oral mucous membranes Head and Scalp: normocephalic Eyes PERRL, EOMs intact bilaterally and conjunctivae normal Eyes Narrative: scleral icterus Neck no lymphadenopathy, supple, no JVD and no carotid bruits Resp normal respiratory effort, no retractions, no use of accessory muscles and clear to auscultation bilaterally Auscultation: Negative for crackles, rales, rhonchi or wheezes Cardio regular rate, regular rhythm, S1 normal heart sound, S2 normal heart sound, no murmurs, no rub, no gallops, no clicks and no JVD GI normal to inspection, nondistended, normoactive bowel sounds, soft to palpation, non-tender, non-distended and hepatosplenomegaly Extremity normal to inspection, full ROM and no clubbing, cyanosis or edema Peripheral Pulses: Yes pulses 2+ throughout Skin no rashes or lesions noted, no wounds, skin turgor normal, no jaundice, no petechiae and no mottling Skin Narrative: jaundice Neuro oriented x3, moves all extremities and no focal motor deficits Sensorium / Orientation: awake and alert Speech: speech normal Motor Exam: strength 5/5 throughout Psych affect normal Assessment & Plan Assessment/Plan (1) Acute alcoholic pancreatitis: QUALIFIERS: Acute pancreatitis complication: no infection or necrosis Qualified Code(s): K85.20 - Alcohol induced acute pancreatitis without necrosis or infection (2) Alcoholic hepatitis: QUALIFIERS: Ascites presence: without ascites Qualified Code(s): K70.10 - Alcoholic hepatitis without ascites (3) Alcohol withdrawal: PLAN: #Acute alcohol withdrawal * on ativan taper. Couldnt get phenobarbital due to his deranged liver enzymes * thiamine, folic acid and multivitamins. * monitor CIWA score * #Hepatitis * Multifactorial but alcohol definitely playing a role. * Bilirubin remains elevated and also has direct bilirubinemia. bilirubin has trended down to 4 today. * Atorvastatin on hold. Gastroenterology on board. CT of the abdomen showed hepatomegaly but no evidence of ascites or nodularity. * Gastroenterology on board. * MDF score was 65 on admission and gradually trended down to 38. Per gastroenterology no indication for steroids aside now as he is improving * Ammonia level was elevated at 47 so patient started on lactulose to titrate to achieve 2-3 loose stools daily. * for EGD today. * * #Thrombocytopenia: Resolved #Alcoholic pancreatitis: improving. Denies any abdominal pain. Will monitor. #Hypertension: On amlodipine and lisinopril as well as metoprolol #GERD: On Protonix #Depression and anxiety as well as bipolar disorder: * On Abilify, bupropion and escitalopram * #Hyponatremia: Na is 132 today. Likely due to chronic alcohol abuse. Will monitor #Urine retention: on Flomax 0.4 mg daily. Andrea catheter dc'd. #Hypophosphatemia: Replace. Will trend. DVT prophylaxis: SCDs Charges/Coding Visit Charges Inpatient E&M: 30903 [facility] Hosp L3
[2021-07-20] MEDS: Lactated Ringers 1,000 ML 15 ML IV (15:25)
--- NOTE | 2021-07-20 16:05 | OP.EGD_ITS ---
Patient Name: Enoch Mccalin Procedure Date: 07/20/2021 3:42 PM Date of : 1965 Age: 56 Procedure: Upper GI endoscopy Indications: Iron deficiency anemia Providers: Tapan Somers DO Medicines: See the Anesthesia note for documentation of the administered medications Patient Profile: This is a 56 year old male. Refer to note in patient chart for documentation of history and physical. Patient has symptoms. Complications: No immediate complications. Procedure: Pre-Anesthesia Assessment: - Prior to the procedure, a History and Physical was performed, and patient medications and allergies were reviewed. The patient is competent. The risks and benefits of the procedure and the sedation options and risks were discussed with the patient. All questions were answered and informed consent was obtained. Patient identification and proposed procedure were verified by the physician in the pre-procedure area. Mental Status Examination: alert and oriented. Airway Examination: normal oropharyngeal airway and neck mobility. Respiratory Examination: clear to auscultation. CV Examination: normal. Prophylactic Antibiotics: The patient does not require prophylactic antibiotics. Prior Anticoagulants: The patient has taken no previous anticoagulant or antiplatelet agents. After reviewing the risks and benefits, the patient was deemed in satisfactory condition to undergo the procedure. The anesthesia plan was to use moderate sedation / analgesia (conscious sedation). Immediately prior to administration of medications, the patient was re-assessed for adequacy to receive sedatives. The heart rate, respiratory rate, oxygen saturations, blood pressure, adequacy of pulmonary ventilation, and response to care were monitored throughout the procedure. The physical status of the patient was re-assessed after the procedure. After obtaining informed consent, the endoscope was passed under direct vision. Throughout the procedure, the patient's blood pressure, pulse, and oxygen saturations were monitored continuously. The gastroscope was introduced through the mouth, and advanced to the second part of duodenum. The upper GI endoscopy was accomplished without difficulty. The patient tolerated the procedure well. Moderate Sedation: Moderate (conscious) sedation was administered by the endoscopy nurse and supervised by the endoscopist. The patient's oxygen saturation, heart rate, blood pressure and response to care were monitored. Total physician intraservice time was 15 minutes. Scope In: 3:52:02 PM Scope Out: 3:54:41 PM Total Procedure Duration Time 0 hours 2 minutes 39 seconds Findings: Mucosal changes including ringed esophagus, longitudinal furrows and small-caliber esophagus were found in the middle third of the esophagus. Esophageal findings were graded using the Eosinophilic Esophagitis Endoscopic Reference Score (EoE-EREFS) as: Edema Grade 1 Present (decreased clarity or absence of vascular markings), Rings Grade 3 Severe (distinct rings that do not permit passage of diagnostic 8-10 mm endoscope), Exudates Grade 1 Mild (scattered white lesions involving less than 10 percent of the esophageal surface area), Furrows Grade 1 Present (vertical lines with or without visible depth) and Stricture present. Biopsies were taken with a cold forceps for histology. Verification of patient identification for the specimen was done. Estimated blood loss was minimal. A medium amount of food (residue) was found in the entire examined stomach. The second portion of the duodenum was normal. Impression: - Esophageal mucosal changes consistent with eosinophilic esophagitis. Biopsied. - A medium amount of food (residue) in the stomach. - Normal second portion of the duodenum. Recommendation: - Return patient to [facility] for ongoing care. - Use metoclopramide 5 mg PO QID; 30 min AC and HS daily. - Continue present medications. Procedure Code(s): --- Professional --- 31876, Esophagogastroduodenoscopy, flexible, transoral; with biopsy, single or multiple 02485, 59, Moderate sedation services provided by the same physician or other qualified health child care associate performing the diagnostic or therapeutic service that the sedation supports, requiring the presence of an independent trained observer to assist in the monitoring of the patient's level of consciousness and physiological status; initial 15 minutes of intraservice time, patient age 5 years or older CPT copyright 2017 [employer]. All rights reserved. The codes documented in this report are preliminary and upon keeper head review may be revised to meet current compliance requirements. Tapan Somers DO 07/20/2021 4:05:17 PM This report has been signed electronically. Number of Addenda: 1 Note Initiated On: 07/20/2021 3:42 PM Addendum Number: 1 Addendum Date: 03/17/2022 6:13:28 AM MAC was used instead of moderate sedation for the patient. Tapan Somers DO 03/17/2022 6:13:32 AM This report has been signed electronically.
--- NOTE | 2021-07-20 16:05 | OP.CCLET_ITS ---
03/17/2022 Enoch Ramirez Re : Upper GI endoscopy procedure for Enoch Mcclain Dear James This procedure was performed on Tuesday, July 20, 2021. My impressions and recommendations are as follows: Impressions : - Esophageal mucosal changes consistent with eosinophilic esophagitis. Biopsied. - A medium amount of food (residue) in the stomach. - Normal second portion of the duodenum. Recommendations : - Return patient to hospital [facility] for ongoing care. - Use metoclopramide 5 mg PO QID; 30 min AC and HS daily. - Continue present medications. My findings are described in the full procedure note, which is enclosed. If I can be of further assistance, please feel free to contact me at . Sincerely, Tapan Friend, 07/20/2021 4:05:17 PM This report has been signed electronically.
[2021-07-20] MEDS: LORazepam 1 MG Tablet 2 MG PO (18:02)
[2021-07-20] MEDS: Tamsulosin HCl 0.4 MG Capsule PO (18:02)
--- NOTE | 2021-07-20 22:00 | NURSING ---
Notified by LOSS CLAIM CLERK that pt wanted to be discharged. This nurse informed pt that if he leaves tonight it would be AMA and pt agreed. Pt called ex [employer] for ride. AMA paper sign and copy given to pt. Rika, fur blowing machine operator assisted pt downstair in wheelchair and waited for his transportation.
--- NOTE | 2021-07-20 22:10 | NURSING ---
Dr. Kunz notified that pt was signing out AMA
--- NOTE | 2021-07-21 07:26 | DS.PCM_ITS ---
Providers Date of Admission: 07/15/21 Primary Care Physician: Dr. Enoch Ramirez MD Consultations 07/15/21 13:27 Consult: Gastroenterology Routine Consulting Provider: [facility] Reason for Consult: Acute Hepatitis-Suspected EtOH EMERGENT Consult: No MD Notified: Yes Date Notified: 07/15/21 Time Notified: 16:32 Method of Notification: Text Reason For Visit: ETOH DETOX Diagnosis Discharge Diagnosis (1) Acute alcoholic pancreatitis: Status: Acute Code(s): K85.20 - Alcohol induced acute pancreatitis without necrosis or infection Qualifiers: Acute pancreatitis complication: no infection or necrosis Qualified Code(s): K85.20 - Alcohol induced acute pancreatitis without necrosis or in fection (2) Alcoholic hepatitis: Status: Acute Code(s): K70.10 - Alcoholic hepatitis without ascites Qualifiers: Ascites presence: without ascites Qualified Code(s): K70.10 - Alcoholic hepatitis without ascites (3) Alcohol withdrawal: Status: Acute Code(s): F10.239 - Alcohol dependence with withdrawal, unspecified Medications at Discharge Home Medications amlodipine 5 mg PO DAILY 10/15/16 lisinopril 20 mg PO DAILY 10/15/16 metoprolol succinate 25 mg PO DAILY 10/15/16 bupropion HCl 300 mg PO DAILY 07/12/18 trazodone 100 mg PO QHS 07/12/18 atorvastatin 40 mg PO QHS 03/01/21 escitalopram oxalate 10 mg PO QHS 03/01/21 folic acid 1 mg PO DAILY 03/01/21 Virt-Caps 1 cap PO DAILY 04/30/21 aripiprazole [Abilify] 5 mg PO DAILY 04/30/21 pantoprazole 20 mg PO DAILY 04/30/21 Hospital Course Operations None Procedures EGD Summary of Care Provided Minutes Spent on Discharge: 35 Hospital Course: Patient is a 56-year-old male with a past medical history as outlined was admitted through the ED on 07/15/2021 for acute alcohol withdrawal. Patient had had multiple admissions for acute alcohol withdrawal with the most recent one being in April 2021. He states that he had been drinking about 1/5 of hard liquor daily. He had not been eating anything else and admitted to feeling tremulous. His serum alcohol level was 46 and bilirubin was markedly elevated at 6.9 with markedly elevated AST and ALT and alkaline phosphatase. He was also noted to be thrombocytopenic with platelets of 143. He was admitted and managed for acute alcohol withdrawal and acute alcoholic hepatitis. Gastroenterology was consulted. He was started on alcohol withdrawal protocol with Ativan. He cannot be given phenobarbital due to his markedly elevated liver enzymes. He also had anion gap metabolic acidosis which was thought to be likely due to alcohol abuse. Thrombocytopenia gradually improved. Gastroenterology reviewed patient and recommended EGD. Hospital course was complicated by acute hyponatremia, hypophosphatemia and hyper kalemia which resolved with treatment. Anion gap metabolic acidosis also resolved. CT of the abdomen showed hepatomegaly but no ascites on nodularity and coagulation studies were normal. He was also noted to have elevated CPK which subsequently improved. Level was checked which was elevated and patient was started on lactulose with aim of 2-3 loose stools daily. EGD done on account of hemoglobin drop from 14 down to 8 was negative for any evidence of portal gastropathy and showed evidence of eosinophilic esophagitis. Patient was seen during the day on 07/20/2021 progress note documented. Patient however left AGAINST MEDICAL ADVICE at 2210 on 07/20/2021. For physical examination documentation for 07/20/2021, please refer to progress note dated 07/20/2021. Total time spent on care of patient: 50 mins Weight / BMI Weight Weight: 181 lb 10.574 oz Body Mass Index (BMI) 29.3 ABG / Lab / Microbiology Data Result Diagrams: 07/20/21 04:56 07/20/21 04:56 Laboratory: Laboratory Results - last 24 hr 07/16/21 07:05: Miscellaneous Test Microbiology: Microbiology 07/15/21 10:25 Nasal Secretion SARS-CoV-2 Antigen (Rapid) - Final Meaningful Use Info Meaningful Use Diagnoses (Choose all that apply): None applicable Discharge Plan Admission Admit Date/Time: 07/15/21 10:10 Attending Provider: Nidhi Wan Primary Care Provider: Enoch Ramirez Discharge Orders/Prescriptions Prescriptions: No Action lisinopril 20 MG tablet 20 mg PO DAILY RF: 0 amlodipine 5 MG tablet 5 mg PO DAILY RF: 0 metoprolol succinate 25 MG tablet extended release 24 hr 25 mg PO DAILY RF: 0 trazodone 100 MG tablet 100 mg PO QHS RF: 0 bupropion HCl 300 MG tablet extended release 24 hr 300 mg PO DAILY RF: 0 atorvastatin 40 mg tablet 40 mg PO QHS RF: 0 folic acid 1 mg Tablet 1 mg PO DAILY RF: 0 escitalopram oxalate 10 mg Tablet 10 mg PO QHS RF: 0 pantoprazole 20 mg tablet,delayed release (DR/EC) 20 mg PO DAILY RF: 0 Virt-Caps 1 mg capsule 1 cap PO DAILY RF: 0 aripiprazole [Abilify] 5 mg tablet 5 mg PO DAILY RF: 0 Referrals / Follow Up: Enoch Ramirez MD [Primary Care Provider] - Disposition Disposition (needs filled in before D/C Order can be placed): Against Medical Advice Charges/Coding Visit Charges Inpatient E&M: 14938 Disch Hosp
[2021-07-21 10:00] LABS: Pathologist Review Reviewed
== END 2021-07-20 22:30 | disposition left against medical advice (07) | DRG 770 ==
LOC: ED 10:04 → MS2 11:02
PROVIDERS: Internal Medicine Gastroenterology; Admitting Provider Internal Medicine; Emergency Provider Emergency Medicine; PCP Family Medicine; Visit Provider Student in an Organized Health Care Education/Training Program
PROC: 0DJ08ZZ Inspection of Upper Intestinal Tract, Via Natural or Artificial Opening Endoscopic (ICD-10-PCS; CPT 43235; principal; 2021-07-20 15:25)
DX: F10.239 Alcohol dependence with withdrawal, unspecified (principal); K85.20 Alcohol induced acute pancreatitis without necrosis or infection; D69.6 Thrombocytopenia, unspecified; E87.2 Acidosis; E83.39 Other disorders of phosphorus metabolism; E87.1 Hypo-osmolality and hyponatremia; F31.9 Bipolar disorder, unspecified; K86.0 Alcohol-induced chronic pancreatitis; K20.0 Eosinophilic esophagitis; D50.9 Iron deficiency anemia, unspecified; I10 Essential (primary) hypertension; E87.6 Hypokalemia; G47.33 Obstructive sleep apnea (adult) (pediatric); E80.7 Disorder of bilirubin metabolism, unspecified; K70.10 Alcoholic hepatitis without ascites; F41.9 Anxiety disorder, unspecified; K21.00 Gastro-esophageal reflux disease with esophagitis, without bleeding; F32.A Depression, unspecified; Z79.899 Other long term (current) drug therapy; Y90.2 Blood alcohol level of 40-59 mg/100 ml
CPT/HCPCS: 36415; 36600; 74177; 76700; 80048; 80053; 80074; 80076; 80307; 80329; 81001; 82077; 82140; 82390; 82525; 82533; 82550; 82728; 82803; 83010; 83516; 83605; 83615; 83690; 83735; 83930; 83935; 84100; 84300; 84443; 84550; 85025; 85610; 85652; 85730; 86038; 86140; 86225; 86235; 87426; 99285; J7030; J7040; J7120; Q9967; A4216; G0480; J2405

== ENCOUNTER 2021-08-10 18:45 | Inpatient (IN) | payer MEDICAID, SELFPAY ==
[2021-08-10 18:47] VITALS: BP 127/80; PULSE 94; RESP 18; TEMP 37; O2SAT 97; BMI 27.7
--- NOTE | 2021-08-10 18:59 | CM.ED ---
Addendum entered by Lenore Mullen 08/10/21 19:36: SYED spoke to Berto and she advised that patient has to go [facility] the [facility] and they will look at his preference for programs but it has to be a program from the hospital and he can not go home. SW spoke to patient. He said that he has talked to Payton at [facility]. Baljit told him to call him in a couple of days. Baljit's phone number is [phone] (office) and [phone] (cell). SYED explained that patient needs to leave from hospital to go to the residential program. Patient said that his clothes are at his wifes and he planned to drive to residential. SW asked if can bring the clothes and patient said If I can talk to her. SW again reiterated that patient has to go directly to the residential program. Patient said that his family will get stuff out of his car and put it in his 's basement so he can put clothes in his car. SW reiterated that patient needs to go straight from detox to residential treatment and patient said I understand. Original Note: SYED Note Referral Source: Case Find Referral Reason: [facility] program SW called [facility] Navigator and left voice mail message. SW met with patient. Patient said that after detox he is going to [facility] in either [place] or [place]. Patient said that he needs a 1 year long program and had been at [facility] in the past for 9 months. SW called Treatment Navigator and spoke to Berto. She requested message be left for her. SEYD called and left voice mail message for Berto updating her regarding patient being in the ED and requesting detox with plan for residential AOD treatment. Plan: [facility] Lenore ZURITA
--- NOTE | 2021-08-10 19:34 | EDS_ITS ---
HPI History of Present Illness Chief Complaint: Substance Abuse Informant: patient Narrative Narrative: Patient presents asking for alcohol detox. Last drink was 1 hour prior to arrival. He states he is drinking more than 1/5 of vodka a day. He was admitted in July. Patient states that he is planning to go to a rehab house in [place] when his discharge from the hospital. He states that is already arranged. [facility] Medical History (Updated 08/10/21 @ 21:[address] Chata Paredes MD) Acute alcoholic pancreatitis Alcohol abuse Alcohol dependence Alcohol withdrawal Alcoholic hepatitis Anemia Anxiety Anxiety Bipolar disorder Chronic pain Cirrhosis Depression Depression Essential (primary) hypertension ETOH abuse Former smoker GERD (gastroesophageal reflux disease) Hepatitis Hyperbilirubinemia Hypertension Hypokalemia Hypomagnesemia Insomnia Leukopenia Non-smoker GERMANIA (obstructive sleep apnea) Pancreatitis Pancreatitis Polysubstance dependence Sleep apnea Sleep apnea Substance abuse Home Medications amlodipine 5 mg PO DAILY 10/15/16 [History Last Taken 08/10/21] lisinopril 20 mg PO DAILY 10/15/16 [History Last Taken 08/10/21] metoprolol succinate 25 mg PO DAILY 10/15/16 [History Last Taken 08/10/21] bupropion HCl 300 mg PO DAILY 07/12/18 [History Last Taken 08/10/21] trazodone 100 mg PO QHS 07/12/18 [History Last Taken 08/09/21] atorvastatin 40 mg PO QHS 03/01/21 [History Last Taken 08/09/21] escitalopram oxalate 10 mg PO QHS 03/01/21 [History Last Taken 08/10/21] folic acid 1 mg PO DAILY 03/01/21 [History Last Taken 08/10/21] Virt-Caps 1 cap PO DAILY 04/30/21 [History Last Taken 08/10/21] pantoprazole 20 mg PO DAILY 04/30/21 [History Last Taken 08/10/21] Allergy/AdvReac Type Severity Reaction Status Date / Time No Known Allergies Allergy Verified 08/10/21 18:47 Family History Mother Cancer Father PD (Parkinson's disease) Social History current occupational status: unemployed Smoking Status: Never smoker alcohol intake: current alcohol intake frequency: 3 or more drinks per day substance use type: does not use ROS ROS ED Constitutional Constitutional ED: Denies chills or fever(s) Eyes Eyes: Denies change in vision ENT ENT ED: Denies sore throat Cardiovascular Cardiovascular: Denies chest pain Respiratory/Chest Respiratory/Chest: Denies cough or dyspnea Gastrointestinal Gastrointestinal: Denies abdominal pain, diarrhea, nausea or vomiting Genitourinary Genitourinary ED: Denies dysuria Musculoskeletal Musculoskeletal: Denies back pain Integumentary Denies rash Neurologic Neurologic: Denies headache(s) or weakness Psychiatric Psychiatric: Reports anxiety; Denies depression Allergic/Immunologic Allergic/Immunologic ED: Denies urticaria EXAM Physical Exam Const Vital Signs: 08/10/21 18:47 08/10/21 21:09 Temperature 98.6 F Temperature Source Temporal Pulse Rate 94 98 Respiratory Rate 18 17 Blood Pressure 127/80 H 132/80 H Blood Pressure Mean 95 97 Pulse Ox 97 98 Oxygen Delivery Method Room Air Room Air Positive well nourished and well developed General Appearance ED: well developed HEENT Reports moist mucous membranes Eyes PERRL and EOMs intact bilaterally Neck supple Chest Wall inspection of chest normal and palpation of chest normal Resp normal respiratory effort and clear to auscultation bilaterally Cardio regular rate and regular rhythm GI non-tender Auscultation: hypoactive bowel sounds Palpation: soft Extremity normal to inspection Neuro oriented x3 Sensorium / Orientation: alert Psych Mood & Affect: depressed Skin no rashes or lesions noted MDM MDM MDM Narrative Medical decision making narrative: Lab work for addiction medicine obtained. Patient given small dose of Ativan. Lab Data Attestation: I reviewed the patient's lab results. Labs: Laboratory Results - last 24 hr 08/10/21 08/10/21 08/10/21 19:30 19:40 19:40 WBC 5.7 RBC 3.08 L Hgb 10.0 L Hct 30.4 L MCV 98.7 H MCH 32.5 H MCHC 32.9 RDW Std Deviation 74.5 H RDW Coeff of [place] 20.8 H Plt Count 199 MPV 9.2 Immature Gran % (Auto) 0.000 Neut % (Auto) 60.5 Lymph % (Auto) 27.5 Falls % (Auto) 9.1 Eos % (Auto) 1.8 Baso % (Auto) 1.1 H Absolute Neuts (auto) 3.5 Absolute Lymphs (auto) 1.57 Nucleated RBC % 0 Differential Comment SCANNED Sodium 136 Potassium 2.5 L* Chloride 104 Carbon Dioxide 18.0 L Anion Gap 14 BUN 10 Creatinine 0.85 Estim Creat Clear Calc 86.53 Est GFR (MDRD) Af Amer 119 Est GFR (MDRD) Non-Af 98 BUN/Creatinine Ratio 11.7 Glucose 73 L Calcium 7.7 L Total Bilirubin 0.90 AST 195 H ALT 120 H Alkaline Phosphatase 241 H Total Protein 7.6 Albumin 3.6 Globulin 4.0 Albumin/Globulin Ratio 0.9 Urine Opiates Screen NEGATIVE Urine Methadone Screen NEGATIVE Ur Barbiturates Screen NEGATIVE Ur Phencyclidine Scrn NEGATIVE Ur Amphetamines Screen NEGATIVE U Methamphetamin-MDMA POSITIVE H U Benzodiazepines Scrn NEGATIVE Urine Cocaine Screen NEGATIVE U Cannabinoids Screen NEGATIVE Ur Drug Screen Comment Ethyl Alcohol 08/10/21 19:40 WBC RBC Hgb Hct MCV MCH MCHC RDW Std Deviation RDW Coeff of [place] Plt Count MPV Immature Gran % (Auto) Neut % (Auto) Lymph % (Auto) Falls % (Auto) Eos % (Auto) Baso % (Auto) Absolute Neuts (auto) Absolute Lymphs (auto) Nucleated RBC % Differential Comment Sodium Potassium Chloride Carbon Dioxide Anion Gap BUN Creatinine Estim Creat Clear Calc Est GFR (MDRD) Af Amer Est GFR (MDRD) Non-Af BUN/Creatinine Ratio Glucose Calcium Total Bilirubin AST ALT Alkaline Phosphatase Total Protein Albumin Globulin Albumin/Globulin Ratio Urine Opiates Screen Urine Methadone Screen Ur Barbiturates Screen Ur Phencyclidine Scrn Ur Amphetamines Screen U Methamphetamin-MDMA U Benzodiazepines Scrn Urine Cocaine Screen U Cannabinoids Screen Ur Drug Screen Comment Ethyl Alcohol 125.0 EKG Initial EKG: Attestation: I personally reviewed and interpreted this EKG as follows: Interpretation: Sinus Rhythm (Sinus at 90. No acute ischemia. QTC is 543.) Treatment and Re-Evaluation Comments:: Lab work reviewed. Potassium low at 2.5. 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 He is given 40 mEq of potassium p.o. and 20 mEq IV. EtOH level is 125. Tox screen positive for methamphetamines. Patient updated on his lab findings. I will speak with hospitalist regarding admission. Discharge Plan Triage Chief Complaint: Substance Abuse ED Provider: Chata Paredes Dx/Rx/DC Orders Clinical Impression: Acute hypokalemia, Desire for detoxification Prescriptions: No Action lisinopril 20 MG tablet 20 mg PO DAILY RF: 0 amlodipine 5 MG tablet 5 mg PO DAILY RF: 0 metoprolol succinate 25 MG tablet extended release 24 hr 25 mg PO DAILY RF: 0 trazodone 100 MG tablet 100 mg PO QHS RF: 0 bupropion HCl 300 MG tablet extended release 24 hr 300 mg PO DAILY RF: 0 atorvastatin 40 mg tablet 40 mg PO QHS RF: 0 folic acid 1 mg Tablet 1 mg PO DAILY RF: 0 escitalopram oxalate 10 mg Tablet 10 mg PO QHS RF: 0 pantoprazole 20 mg tablet,delayed release (DR/EC) 20 mg PO DAILY RF: 0 Virt-Caps 1 mg capsule 1 cap PO DAILY RF: 0 Primary Care Provider: Enoch Ramirez Referrals: Enoch Ramirez MD [Primary Care Provider] - Disposition Disposition: Acute Care [facility]
[2021-08-10] MEDS: LORazepam 2 MG/ML Syringe 0.5 MG IV (19:57)
[2021-08-10 20:13] LABS: Absolute Lymphocyte Count 1.57 X10^3/uL (0.83-4.51); Absolute Neutrophil Count 3.5 X10^3/uL (2.0-7.7); Basophil# 0.06 X10^3/uL; Basophil% 1.1 % (0-1); Eosinophils% 1.8 % (0-5); Hematocrit 30.4 % (40-54); Lymphocyte # 1.57 X10^3/ul (0.83-4.51); Lymphocyte % 27.5 % (19-41); Mean Corp Hgb Conc 32.9 g/dL (32-36); Mean Corpuscular Hgb 32.5 pg (27.0-32.0); Mean Corpuscular Volume 98.7 fL (80-94); Mean Platelet Vol. 9.2 fl (6.2-12.0); Monocyte# 0.52 X10^3/uL; Monocyte% 9.1 % (0-10); NRBC Flagged by Analyzer 0 % (0-5); Neutrophil # 3.46 X10^3/uL (2.7-7.7); Neutrophil % 60.5 % (47-70); POSITIVE MORPHOLOGY YES; Platelet Count 199 K/mm3 (150-450); RBC Distribution Width CV 20.8 % (11.6-14.6); RBC Distribution Width SD 74.5 fl (35.1-43.9); Red Blood Count 3.08 M/mm3 (4.6-6.2); White Blood Count 5.7 K/mm3 (4.4-11.0)
[2021-08-10 20:18] LABS: Differential Indicated SCAN CRITERIA MET
[2021-08-10 20:38] LABS: ALB/GLOB Ratio 0.9 RATIO (0.9-2.4); AST(SGOT) 195 U/L (15-37); Alanine Aminotransfer ALT/SGPT 120 U/L (16-61); Albumin, Serum 3.6 g/dL (3.2-5.0); Alkaline Phosphatase 241 U/L (45-117); Anion Gap 14 (5-15); BUN 10 mg/dL (7-18); BUN/Creat Ratio 11.7 RATIO (10-20); Calcium,Total 7.7 mg/dL (8.5-10.1); Chloride 104 mmol/L (98-107); Creatinine, Serum 0.85 mg/dL (0.70-1.30); Differential Comment SCANNED; EST Glomerular Filtration Rate 98 mL/min (>60); Est Glom Filt Rate - Afr Amer 119 mL/min (>60); Estimated Creatinine Clearance 86.53 ml/min; Glucose 73 mg/dL (74-106); Potassium 2.5 mmol/L (3.5-5.1); Protein, Total 7.6 g/dL (6.4-8.2); Sodium Level 136 mmol/L (136-145)
--- NOTE | 2021-08-10 20:39 | EKG12_ITS ---
Test Reason : SUBABUSE Blood Pressure : / mmHG Vent. Rate : 090 BPM Atrial Rate : 090 BPM P-R Int : 144 ms QRS Dur : 100 ms QT Int : 444 ms P-R-T Axes : 047 -10 026 degrees QTc Int : 543 ms Normal sinus rhythm Prolonged QT Abnormal ECG Confirmed by TISH DUDLEY, JOHN ([id number]), supervising film or videotape editor JESÚS BRENNAN ([id number]) on 08/12/2021 11:00:07 AM Referred By: AIDAN Confirmed By:DAVID WINSTON MD
[2021-08-10] MEDS: Potassium Chloride 10mEq/100mL 10 MEQ/100 ML IV.SOLN. 100 MEQ IV BOLUS ×2 (21:08→22:05)
[2021-08-10] MEDS: Potassium Chloride Oral Tablet 20 MEQ 40 MEQ PO (21:08)
[2021-08-10 21:09] VITALS: BP 132/80; PULSE 98; RESP 17; O2SAT 98
[2021-08-10 21:12] LABS: Amphetamine Urine VISTA NEGATIVE (<1000 ng/mL); Barbiturate Urine VISTA NEGATIVE (< 200 ng/mL); Benzodiazepine Urine VISTA NEGATIVE (< 200 ng/mL); Cocaine Urine VISTA NEGATIVE (< 300 ng/mL); Ecstacy Urine VISTA POSITIVE (< 500 ng/mL); Methadone Urine VISTA NEGATIVE (< 300 ng/mL); PCP Urine VISTA NEGATIVE (< 25 ng/mL); THC Urine VISTA NEGATIVE (< 50 ng/mL); Vista UDS pH Range 5
--- NOTE | 2021-08-10 21:46 | HP.PCM.HOS_ITS ---
[facility] - General General Date of Admission: 08/10/21 HPI Narrative CHERELLE STEEN, is a 56 M with a significant history of hypertension; and alcohol abuse who presents to the emergency department with help with alcohol detoxification. Reportedly patient drinks more than a fifth of diluted vodka a day. Last time he drank was about 15 to 20 minutes prior to arrival. He has been drinking since high school. He has noticed some mild tremulousness. Patient is already scheduled himself for after discharge residential detoxification the last for about a year. [facility] Medical History Acute alcoholic pancreatitis Alcohol abuse Alcohol dependence Alcohol withdrawal Alcoholic hepatitis Anemia Anxiety Anxiety Bipolar disorder Chronic pain Cirrhosis Depression Depression Essential (primary) hypertension ETOH abuse Former smoker GERD (gastroesophageal reflux disease) Hepatitis Hyperbilirubinemia Hypertension Hypokalemia Hypomagnesemia Insomnia Leukopenia Non-smoker GERMANIA (obstructive sleep apnea) Pancreatitis Pancreatitis Polysubstance dependence Sleep apnea Sleep apnea Substance abuse Home Medications amlodipine 5 mg PO DAILY 10/15/16 [History Last Taken 08/10/21] lisinopril 20 mg PO DAILY 10/15/16 [History Last Taken 08/10/21] metoprolol succinate 25 mg PO DAILY 10/15/16 [History Last Taken 08/10/21] bupropion HCl 300 mg PO DAILY 07/12/18 [History Last Taken 08/10/21] trazodone 100 mg PO QHS 07/12/18 [History Last Taken 08/09/21] atorvastatin 40 mg PO QHS 03/01/21 [History Last Taken 08/09/21] escitalopram oxalate 10 mg PO QHS 03/01/21 [History Last Taken 08/10/21] folic acid 1 mg PO DAILY 03/01/21 [History Last Taken 08/10/21] Virt-Caps 1 cap PO DAILY 04/30/21 [History Last Taken 08/10/21] pantoprazole 20 mg PO DAILY 04/30/21 [History Last Taken 08/10/21] Allergy/AdvReac Type Severity Reaction Status Date / Time No Known Allergies Allergy Verified 08/10/21 18:47 Family History Mother Cancer Father PD (Parkinson's disease) Social History current occupational status: unemployed Smoking Status: Never smoker alcohol intake: current alcohol intake frequency: 3 or more drinks per day substance use type: does not use ROS ROS Narrative Constitutional: Denies fever, chills, fatigue, anorexia and change in weight Eyes: Denies blurry vision, change in eye color, change in vision, discharge from eye(s), double vision, erythema, eye pain, loss of vision or other HEENT: Denies abnormal hearing, dysphagia, ear pain, epistaxis, headache(s), hearing loss, nasal congestion, nasal discharge, post nasal drip, sinus p ressure, sore throat or other Cardiovascular: Denies chest pain or palpitations. Denies dyspnea on exertion, orthopnea and paroxysmal nocturnal dyspnea Respiratory/Chest: Denies cough, excessive phlegm production, shortness of breath with exertion and wheezing Gastrointestinal: Denies abdominal pain, coffee ground emesis, constipation, diarrhea, dyspepsia, hematemesis, hematochezia, loose stools, melena, nausea, vomiting or other Genitourinary: Denies burning urination, difficulty urinating, dysuria, hematuria, nocturia, urinary frequency, urinary hesitancy, urinary incontinence, urinary urgency or other Musculoskeletal: Denies arthralgias, back pain, joint pain, joint stiffness, joint swelling, myalgias, neck pain or other Neurologic: Patient reported tremors. Denies abnormal gait, abnormal speech, confusion, disequilibrium, dizziness, focal weakness, headache(s), numbness, paresthesias, seizure-like activity, seizures, syncope, tingling, or other Psychiatric: Denies anxiety, depression, homicidal ideation, suicidal ideation or other Endocrinology: Denies change in body appearance, cold intolerance, excessive sweating, heat intolerance, polydipsia, polyuria or other Hematologic/Lymphatic: Denies anemia, easy bleeding, easy bruising, lymphadenopathy or other Integumentary: Denies rashes Allergic/Immunologic: Denies rhinitis, hives, eczema, asthma or other Vital Signs Vital Signs Vital Signs: 08/10/21 18:47 08/10/21 21:09 Temperature 98.6 F Temperature Source Temporal Pulse Rate 94 98 Respiratory Rate 18 17 Blood Pressure 127/80 H 132/80 H Blood Pressure Mean 95 97 Pulse Ox 97 98 Oxygen Delivery Method Room Air Room Air Weight Weight: 78.018 kg Body Mass Index (BMI) 27.7 Physical Exam Narrative Physical exam: General: Well-nourished, well-developed. Head: Normocephalic, atraumatic, no tenderness Eyes: PERRLA, EOMI ENT, no trauma, moist mucous membranes, no rhinorrhea Neck: Nontender, full range of motion, no spinal tenderness, deformities, step- off CVS: Regular rate and rhythm. S1-S2 present. No murmur, gallop or rub. Respiratory : clear to auscultation bilaterally, chest wall nontender, no wheezing Abdomen: Soft, nontender, nondistended, normal bowel sounds, no masses : Deferred Back: Nontender, no CVA tenderness, no midline spinal tenderness, deformities, step-offs Extremities: Nontender full range of motion, no trauma Skin: Normal color, no trauma, abrasions Neuro: Alert, oriented, cranial nerves II through XII grossly intact. Tremors. Psychiatry: Anxious. Not depressed. Results Lab / Micro Data Result Diagrams: 08/10/21 19:40 08/10/21 19:40 Labs: Laboratory Results - last 24 hr 08/10/21 19:30: Urine Opiates Screen NEGATIVE, Urine Methadone Screen NEGATIVE, Ur Barbiturates Screen NEGATIVE, Ur Phencyclidine Scrn NEGATIVE, Ur Amphetamines Screen NEGATIVE, U Methamphetamin-MDMA POSITIVE H, U Benzodiazepines Scrn NEGATIVE, Urine Cocaine Screen NEGATIVE, U Cannabinoids Screen NEGATIVE, Ur Drug Screen Comment 08/10/21 19:40: WBC 5.7, RBC 3.08 L, Hgb 10.0 L, Hct 30.4 L, MCV 98.7 H, MCH 32.5 H, MCHC 32.9, RDW Std Deviation 74.5 H, RDW Coeff of [place] 20.8 H, Plt Count 199, MPV 9.2, Immature Gran % (Auto) 0.000, Neut % (Auto) 60.5, Lymph % (Auto) 27.5, [place] % (Auto) 9.1, Eos % (Auto) 1.8, Baso % (Auto) 1.1 H, Absolute Neuts (auto) 3.5, Absolute Lymphs (auto) 1.57, Nucleated RBC % 0, Differential Comment SCANNED 08/10/21 19:40: Sodium 136, Potassium 2.5 L*, Chloride 104, Carbon Dioxide 18.0 L, Anion Gap 14, BUN 10, Creatinine 0.85, Estim Creat Clear Calc 86.53, Est GFR (MDRD) Af Amer 119, Est GFR (MDRD) Non-Af 98, BUN/Creatinine Ratio 11.7, Glucose 73 L, Calcium 7.7 L, Total Bilirubin 0.90, AST 195 H, ALT 120 H, Alkaline Phosphatase 241 H, Total Protein 7.6, Albumin 3.6, Globulin 4.0, Albumin/Globulin Ratio 0.9 08/10/21 19:40: Ethyl Alcohol 125.0 Assessment & Plan Assessment/Plan (1) Desire for detoxification: (2) Acute hypokalemia: PLAN: Alcohol dependence and desire for detoxification Review of labs showed elevated AST of 195; ALT elevated 120;: Phosphatase elevated at 241; chronic; alcoholic pattern. Also noted to have mild hypoglycemia of 73 Patient will be started on phenobarbital and other adjunctive medications: Gabapentin as needed; dicyclomine as needed; Vistaril as needed; Imodium as needed; trazodone as needed; Zofran as needed; scheduled thiamine; and schedule folic acid. Monitor CIWA score Hypertension Blood pressure is not within goal Amlodipine, lisinopril and metoprolol continued. Trend blood pressure and adjust blood pressure medications Hypokalemia Potassium potentiation was 2.5. Received p.o. and IV potassium at the emergency department. Check magnesium. Trend CMP. DVT prophylaxis Lovenox ordered Charges/Coding Visit Charges Inpatient E&M: 23487 Init Hosp L2
[2021-08-10 21:47] VITALS: BP 139/74; PULSE 94; RESP 16; TEMP 36.6; O2SAT 98
[2021-08-10 22:21] LABS: Magnesium 0.9 mg/dL (1.6-2.6)
[2021-08-10 22:54] VITALS: BP 134/79; PULSE 94; RESP 17; O2SAT 94
[2021-08-10 23:44] VITALS: BMI 27.1
[2021-08-11] VITALS (9 sets, daily range): BP systolic 132–155; BP diastolic 74–94; PULSE 82–96; RESP 18; TEMP 36.3–37.2; O2SAT 97–100
[2021-08-11] MEDS: Escitalopram Oxalate 10 MG Tablet PO ×2 (00:34→22:02)
[2021-08-11] MEDS: Atorvastatin Calcium 40 MG Tablet PO ×2 (00:34→22:00)
[2021-08-11] MEDS: traZODone 100 MG Tablet PO ×2 (00:34→22:01)
[2021-08-11] MEDS: Magnesium Sulfate 4gm/100mL 4 GM/100 ML IV.SOLN. IV (00:34)
[2021-08-11] MEDS: 0.9% Saline Lock 10 ML Syringe IV (00:35)
[2021-08-11] MEDS: Phenobarbital 32.4 MG Tablet PO ×6 (00:35→20:04)
--- NOTE | 2021-08-11 02:40 | PCS.PANDOC ---
PANDEMIC DOCUMENTATION INITIATED: Date: 08/10/21 Time: 2754
[2021-08-11 06:51] LABS: ALB/GLOB Ratio 0.9 RATIO (0.9-2.4); AST(SGOT) 135 U/L (15-37); Alanine Aminotransfer ALT/SGPT 95 U/L (16-61); Albumin, Serum 3.1 g/dL (3.2-5.0); Alkaline Phosphatase 210 U/L (45-117); Anion Gap 8 (5-15); BUN 7 mg/dL (7-18); Calcium,Total 7.2 mg/dL (8.5-10.1); Chloride 105 mmol/L (98-107); Creatinine, Serum 0.64 mg/dL (0.70-1.30); EST Glomerular Filtration Rate 138 mL/min (>60); Est Glom Filt Rate - Afr Amer 166 mL/min (>60); Estimated Creatinine Clearance 114.92 ml/min; Globulin 3.4 g/dL (2.2-4.2); Glucose 124 mg/dL (74-106); Potassium 2.9 mmol/L (3.5-5.1); Protein, Total 6.5 g/dL (6.4-8.2); Sodium Level 137 mmol/L (136-145)
[2021-08-11] MEDS: amLODIPine 5 MG Tablet PO (08:16)
[2021-08-11] MEDS: Folic Acid 1 MG Tablet PO (08:16)
[2021-08-11] MEDS: Thiamine Hydrochloride 100 MG Tablet PO (08:16)
[2021-08-11] MEDS: Lisinopril 20 MG Tablet PO (09:58)
[2021-08-11] MEDS: buPROPion (XL) 300 MG TABLET.XL PO (09:58)
[2021-08-11] MEDS: Metoprolol(XL)Succ 25 MG Tablet PO (09:58)
[2021-08-11] MEDS: Folic Acid/Vitamin B Comp W-C 1 Capsule 1 CAP PO (09:58)
[2021-08-11] MEDS: Enoxaparin 40 MG/0.4 ML Syringe SC (09:58)
[2021-08-11] MEDS: Pantoprazole Sodium 20 MG Tablet PO (09:58)
--- NOTE | 2021-08-11 11:01 | ADDICTION ---
This investigative writer met with PT to conduct ASAM, MSE, AUDIT assessments and to plan for d/c. PT A+Ox4 and participated actively. All assessments completed and placed in PT's chart. PT plans to f/u with [facility] for residential treatment services. PT did indicate a need for transportation post d/c from [facility]. This worker will call resources to find a transport. Telephoned to bring belongings pt has requested to take to residential.
[2021-08-11] MEDS: Gabapentin 300 MG Capsule PO (12:20)
--- NOTE | 2021-08-11 16:01 | PN.HOSP_ITS ---
Subjective Subjective Patient was seen and examined today, I briefly talked with addiction social media marketing specialist who stated that the patient was informed that he must go to an inpatient detox facility in order to be admitted here. Arrangements are being made for him to go there on Monday. Objective Data Objective Data Vital Signs: Vital Signs Temp Pulse Resp BP Pulse Ox 98.9 F 96 18 142/87 H 100 08/11/21 16:00 08/11/21 16:00 08/11/21 16:00 08/11/21 16:00 08/11/21 16:00 Oxygen Delivery Method Room Air Weight: 76.5 kg Body Mass Index (BMI) 27.1 Intake & Output: Intake and Output for Last 24 Hours 08/09/21 08/10/21 08/11/21 23:59 23:59 23:59 Intake Total 1118.5 / 1118.5 Balance 1118.5 / 1118.5 Lab / Micro Data Result Diagrams: 08/10/21 19:40 08/11/21 05:50 Labs: Laboratory Results - last 24 hr 08/10/21 19:30: Urine Opiates Screen NEGATIVE, Urine Methadone Screen NEGATIVE, Ur Barbiturates Screen NEGATIVE, Ur Phencyclidine Scrn NEGATIVE, Ur Amphetamines Screen NEGATIVE, U Methamphetamin-MDMA POSITIVE H, U Benzodiazepines Scrn NEGATIVE, Urine Cocaine Screen NEGATIVE, U Cannabinoids Screen NEGATIVE, Ur Drug Screen Comment 08/10/21 19:40: WBC 5.7, RBC 3.08 L, Hgb 10.0 L, Hct 30.4 L, MCV 98.7 H, MCH 32.5 H, MCHC 32.9, RDW Std Deviation 74.5 H, RDW Coeff of [place] 20.8 H, Plt Count 199, MPV 9.2, Immature Gran % (Auto) 0.000, Neut % (Auto) 60.5, Lymph % (Auto) 27.5, [place] % (Auto) 9.1, Eos % (Auto) 1.8, Baso % (Auto) 1.1 H, Absolute Neuts (auto) 3.5, Absolute Lymphs (auto) 1.57, Nucleated RBC % 0, Differential Comment SCANNED 08/10/21 19:40: Sodium 136, Potassium 2.5 L*, Chloride 104, Carbon Dioxide 18.0 L, Anion Gap 14, BUN 10, Creatinine 0.85, Estim Creat Clear Calc 86.53, Est GFR (MDRD) Af Amer 119, Est GFR (MDRD) Non-Af 98, BUN/Creatinine Ratio 11.7, Glucose 73 L, Calcium 7.7 L, Total Bilirubin 0.90, AST 195 H, ALT 120 H, Alkaline Phosphatase 241 H, Total Protein 7.6, Albumin 3.6, Globulin 4.0, Albumin/Globulin Ratio 0.9 08/10/21 19:40: Ethyl Alcohol 125.0 08/10/21 19:40: Magnesium 0.9 L* 08/11/21 05:50: Sodium 137, Potassium 2.9 L, Chloride 105, Carbon Dioxide 24.0, Anion Gap 8, BUN 7, Creatinine 0.64 L, Estim Creat Clear Calc 114.92, Est GFR (MDRD) Af Amer 166, Est GFR (MDRD) Non-Af 138, BUN/Creatinine Ratio 11.0, Glucose 124 H, Calcium 7.2 L, Total Bilirubin 0.90, AST 135 H, ALT 95 H, Alkaline Phosphatase 210 H, Total Protein 6.5, Albumin 3.1 L, Globulin 3.4, Albumin/Globulin Ratio 0.9 Physical Exam Const alert, oriented x3, no apparent distress and healthy appearing General Appearance: cooperative, well kempt and well developed Orientation / Consciousness: awake, oriented to person, oriented to place and oriented to time HEENT normocephalic, head/scalp atraumatic and moist oral mucous membranes Head and Scalp: normocephalic Eyes PERRL, EOMs intact bilaterally and conjunctivae normal Neck nuchal rigidity, supple, no JVD, thyroid normal and no carotid bruits General: trachea midline Resp normal respiratory effort, no retractions, no use of accessory muscles and clear to auscultation bilaterally Auscultation: Negative for rales, rhonchi or wheezes Cardio regular rate, regular rhythm, S1 normal heart sound, S2 normal heart sound, no murmurs, no rub and no gallops GI normal to inspection, nondistended, normoactive bowel sounds, soft to palpation, non-tender and non-distended Extremity no clubbing, cyanosis or edema Skin no rashes or lesions noted General Skin Exam: no breakdown Neuro oriented x3, CN's II-XII intact bilaterally, no focal motor deficits and no sensory deficits noted Sensorium / Orientation: awake and alert Speech: speech normal Psych affect normal Assessment & Plan Assessment/Plan (1) Desire for detoxification: PLAN: 1. Acute alcoholic withdrawal-patient seems minimally symptomatic at this point, continue present medications #2 chronic alcoholism-patient will be sent to an inpatient detox facility at the time of discharge from the hospital #3 hypokalemia-patient was given oral potassium supplementation today #4 hypomagnesemia-patient was given magnesium replacement #5 alcoholic hepatitis-liver enzymes are elevated except for bilirubin, labs will be repeated #6 bipolar disorder-I mentioned placing the patient on medication for bipolar disorder however, Depakote can cause an elevation of the liver enzymes so I have decided not to start this on the patient. Patient states he was on Abilify and lithium in the past and did not feel well taking these medications. For now, patient will not be placed on medications for bipolar disorder. Patient is currently on antidepressants. #7 hypertension-patient will remain on his home medications #8 hyperlipidemia-patient is on Lipitor #9+ methamphetamine talk screen-possibly secondary to trazodone use Charges/Coding Visit Charges Inpatient E&M: 62890 Subs Hosp L3
[2021-08-11] MEDS: Potassium Chloride Oral Tablet 20 MEQ 60 MEQ PO (16:35)
[2021-08-11] MEDS: Ibuprofen 600 MG Tablet PO (16:35)
--- NOTE | 2021-08-11 17:01 | CHAPLAIN ---
Type of Pastoral Visit _x__ Initial Visit ___ Follow-up Visit ___ On-call Visit ___ General Patient Visit ___ Spiritual Assessment ___ Family Conference ___ Bereavement ___ Rapid Response ___ Code Blue ___ Other (describe below) Pastoral Care Referral From _x__ Patient ___ Family ___ Nurse ___ Physician ___ Scrap Hooker ___ Service Parts Driver ___ Other (describe below) Sacrament/Intervention _x__ Active listening ___ Anointing ___ Holiness ___ Bereavement ___ Communion ___ Niya exploration ___ ___ Life review _x__ Prayer ___ Reconciliation ___ Sacrament of Sick _x__ Supportive presence ___ Wedding ___ Other (describe below) Pastoral Comments this patient has been seen before by this strip tank tender; pt is awake as RN just was in the room; pt asks about [employer] basketball and information given; pt states he has a plan to go to [employer] and to attend the [employer] while he is there; pt states that he had 13 month sobriety until I let my spirituality go; pt admits to concerns for his four adult children while he is gone but I need the help or I won't be there for them in the future either; pt welcomes the visit and prayer support
[2021-08-12] MEDS: Phenobarbital 32.4 MG Tablet PO ×6 (00:19→20:37)
[2021-08-12 02:25] VITALS: BP 117/82; PULSE 73; RESP 18; TEMP 36.6; O2SAT 99
[2021-08-12 07:03] LABS: Anion Gap 9 (5-15); BUN 8 mg/dL (7-18); Calcium,Total 7.3 mg/dL (8.5-10.1); Chloride 102 mmol/L (98-107); Creatinine, Serum 0.72 mg/dL (0.70-1.30); EST Glomerular Filtration Rate 118 mL/min (>60); Est Glom Filt Rate - Afr Amer 143 mL/min (>60); Estimated Creatinine Clearance 102.15 ml/min; Glucose 168 mg/dL (74-106); Magnesium 1.6 mg/dL (1.6-2.6); Potassium 3.1 mmol/L (3.5-5.1); Sodium Level 137 mmol/L (136-145)
[2021-08-12 07:47] VITALS: O2SAT 98
[2021-08-12 07:50] VITALS: BP 138/80; PULSE 89; RESP 16; TEMP 36.7; O2SAT 98
[2021-08-12] MEDS: Lisinopril 20 MG Tablet PO (07:54)
[2021-08-12] MEDS: Pantoprazole Sodium 20 MG Tablet PO (07:54)
[2021-08-12] MEDS: Thiamine Hydrochloride 100 MG Tablet PO (07:54)
[2021-08-12] MEDS: buPROPion (XL) 300 MG TABLET.XL PO (07:54)
[2021-08-12] MEDS: amLODIPine 5 MG Tablet PO (07:54)
[2021-08-12 07:55] VITALS: PULSE 89
[2021-08-12] MEDS: Folic Acid 1 MG Tablet PO (07:55)
[2021-08-12] MEDS: Folic Acid/Vitamin B Comp W-C 1 Capsule 1 CAP PO (07:55)
[2021-08-12] MEDS: Metoprolol(XL)Succ 25 MG Tablet PO (07:55)
[2021-08-12] MEDS: Enoxaparin 40 MG/0.4 ML Syringe SC (07:55)
[2021-08-12 12:25] VITALS: BP 139/92; PULSE 83; RESP 16; TEMP 36.6; O2SAT 97
[2021-08-12] MEDS: Senna/Docusate Sodium 1 Tablet 2 TABLET PO (12:31)
[2021-08-12] MEDS: Potassium Chloride Oral Tablet 20 MEQ 60 MEQ PO (12:32)
--- NOTE | 2021-08-12 16:40 | PN.HOSP_ITS ---
Subjective Subjective Patient was seen and examined today, his potassium was 3.1, he does not complain of any excessive nervousness, muscle pain, or nausea and vomiting. Objective Data Objective Data Vital Signs: Vital Signs Temp Pulse Resp BP Pulse Ox 97.9 F 83 16 139/92 H 97 08/12/21 12:25 08/12/21 12:25 08/12/21 12:25 08/12/21 12:25 08/12/21 12:25 Oxygen Delivery Method Room Air Weight: 76.5 kg Body Mass Index (BMI) 27.1 Intake & Output: Intake and Output for Last 24 Hours 08/10/21 08/11/21 08/12/21 23:59 23:59 23:59 Intake Total 195 / 195 1598.5 / 1598.5 2600 / 2600 Output Total 250 / 250 Balance 195 / 195 1598.5 / 1598.5 2350 / 2350 Lab / Micro Data Result Diagrams: 08/10/21 19:40 08/12/21 05:55 Labs: Laboratory Results - last 24 hr 08/12/21 05:55: Sodium 137, Potassium 3.1 L, Chloride 102, Carbon Dioxide 26.0, Anion Gap 9, BUN 8, Creatinine 0.72, Estim Creat Clear Calc 102.15, Est GFR (MDRD) Af Amer 143, Est GFR (MDRD) Non-Af 118, BUN/Creatinine Ratio 11.0, Glucose 168 H, Calcium 7.3 L, Magnesium 1.6 Physical Exam Const alert, oriented x3, no apparent distress and healthy appearing General Appearance: cooperative, well kempt and well developed Orientation / Consciousness: awake, oriented to person, oriented to place and oriented to time HEENT normocephalic and moist oral mucous membranes Eyes PERRL, EOMs intact bilaterally and conjunctivae normal Neck nuchal rigidity, supple, no JVD, thyroid normal and no carotid bruits General: trachea midline Resp normal respiratory effort and clear to auscultation bilaterally Auscultation: Negative for rales, rhonchi or wheezes Cardio regular rate, regular rhythm, no murmurs, no rub and no gallops GI normal to inspection, nondistended, normoactive bowel sounds, soft to palpation, non-tender and non-distended Extremity no clubbing, cyanosis or edema Skin no rashes or lesions noted General Skin Exam: no breakdown Neuro oriented x3, CN's II-XII intact bilaterally, no focal motor deficits and no sensory deficits noted Sensorium / Orientation: awake and alert Speech: speech normal Psych affect normal Assessment & Plan Assessment/Plan (1) Acute hypokalemia: (2) Desire for detoxification: PLAN: 1. Acute alcoholic withdrawal-patient seems minimally symptomatic at this point, continue present medications #2 chronic alcoholism-patient will be sent to an inpatient detox facility at the time of discharge from the hospital #3 hypokalemia-patient was given oral potassium supplementation today, will rech donald his potassium tomorrow #4 hypomagnesemia-patient was given magnesium replacement #5 alcoholic hepatitis-liver enzymes are elevated except for bilirubin, labs will be repeated #6 bipolar disorder-I mentioned placing the patient on medication for bipolar disorder however, Depakote can cause an elevation of the liver enzymes so I have decided not to start this on the patient. Patient states he was on Abilify and lithium in the past and did not feel well taking these medications. For now, julio mosqueda will not be placed on medications for bipolar disorder. Patient is currently on antidepressants. #7 hypertension-patient will remain on his home medications #8 hyperlipidemia-patient is on Lipitor #9+ methamphetamine talk screen-possibly secondary to trazodone use Charges/Coding Visit Charges Inpatient E&M: 95490 Subs Hosp L2
[2021-08-12 20:35] VITALS: BP 148/86; PULSE 77; RESP 16; TEMP 36.6; O2SAT 100
[2021-08-12] MEDS: traZODone 100 MG Tablet PO (20:37)
[2021-08-12] MEDS: Atorvastatin Calcium 40 MG Tablet PO (20:37)
[2021-08-12] MEDS: Escitalopram Oxalate 10 MG Tablet PO (20:37)
[2021-08-13] VITALS (7 sets, daily range): BP systolic 141–160; BP diastolic 70–92; PULSE 76–88; RESP 16–18; TEMP 36.6–37.1; O2SAT 96–100
[2021-08-13] MEDS: Phenobarbital 32.4 MG Tablet PO ×5 (00:03→20:16)
[2021-08-13] MEDS: hydrOXYzine PAM 25 MG Capsule 50 MG PO ×2 (00:03→20:17)
[2021-08-13 05:38] LABS: Anion Gap 7 (5-15); BUN 8 mg/dL (7-18); BUN/Creat Ratio 11.2 RATIO (10-20); Chloride 101 mmol/L (98-107); Creatinine, Serum 0.71 mg/dL (0.70-1.30); EST Glomerular Filtration Rate 121 mL/min (>60); Est Glom Filt Rate - Afr Amer 146 mL/min (>60); Estimated Creatinine Clearance 103.59 ml/min; Glucose 145 mg/dL (74-106); Potassium 4.2 mmol/L (3.5-5.1); Sodium Level 135 mmol/L (136-145)
[2021-08-13] MEDS: Folic Acid 1 MG Tablet PO (07:43)
[2021-08-13] MEDS: Thiamine Hydrochloride 100 MG Tablet PO (07:44)
[2021-08-13] MEDS: Enoxaparin 40 MG/0.4 ML Syringe SC (09:53)
[2021-08-13] MEDS: Folic Acid/Vitamin B Comp W-C 1 Capsule 1 CAP PO (09:53)
[2021-08-13] MEDS: Metoprolol(XL)Succ 25 MG Tablet PO (09:54)
[2021-08-13] MEDS: amLODIPine 5 MG Tablet PO (09:54)
[2021-08-13] MEDS: buPROPion (XL) 300 MG TABLET.XL PO (09:54)
[2021-08-13] MEDS: Pantoprazole Sodium 20 MG Tablet PO (09:54)
[2021-08-13] MEDS: Lisinopril 20 MG Tablet PO (09:54)
--- NOTE | 2021-08-13 11:45 | PCM.PN.HOSP ---
Subjective Subjective Patient was seen and examined today, he does not complain of any tremors or severe anxiety. Patient is set up to go to an inpatient detox facility tomorrow. Objective Data Objective Data Vital Signs: Vital Signs Temp Pulse Resp BP Pulse Ox 98.2 F 76 16 143/85 H 96 08/13/21 07:33 08/13/21 09:54 08/13/21 07:33 08/13/21 07:33 08/13/21 08:39 Oxygen Delivery Method Room Air Weight: 76.5 kg Body Mass Index (BMI) 27.1 Intake & Output: Intake and Output for Last 24 Hours 08/11/21 08/12/21 08/13/21 23:59 23:59 23:59 Intake Total 1598.5 / 1598.5 2600 / 2600 Output Total 250 / 250 Balance 1598.5 / 1598.5 2350 / 2350 Lab / Micro Data Result Diagrams: 08/10/21 19:40 08/13/21 04:20 Labs: Laboratory Results - last 24 hr 08/13/21 04:20: Sodium 135 L, Potassium 4.2, Chloride 101, Carbon Dioxide 27.0, Anion Gap 7, BUN 8, Creatinine 0.71, Estim Creat Clear Calc 103.59, Est GFR (MDRD) Af Amer 146, Est GFR (MDRD) Non-Af 121, BUN/Creatinine Ratio 11.2, Glucose 145 H, Calcium 8.0 L Physical Exam Const alert, oriented x3, no apparent distress and healthy appearing General Appearance: cooperative, well kempt and well developed Orientation / Consciousness: awake, oriented to person, oriented to place and oriented to time HEENT normocephalic and moist oral mucous membranes Eyes PERRL, EOMs intact bilaterally and conjunctivae normal Neck nuchal rigidity, supple, no JVD, thyroid normal and no carotid bruits General: trachea midline Resp normal respiratory effort and clear to auscultation bilaterally Auscultation: Negative for rales, rhonchi or wheezes Cardio regular rate, regular rhythm, no murmurs, no rub and no gallops GI normal to inspection, nondistended, normoactive bowel sounds, soft to palpation, non-tender and non-distended Extremity no clubbing, cyanosis or edema Skin no rashes or lesions noted General Skin Exam: no breakdown Neuro oriented x3, CN's II-XII intact bilaterally, no focal motor deficits and no sensory deficits noted Sensorium / Orientation: awake and alert Speech: speech normal Psych affect normal Assessment & Plan Assessment/Plan (1) Desire for detoxification: (2) Acute hypokalemia: PLAN: 1. Acute alcoholic withdrawal-patient seems minimally symptomatic at this point, continue present medications #2 chronic alcoholism-patient will be sent to an inpatient detox facility at the time of discharge from the hospital #3 hypokalemia-resolved, patient's potassium today was 4.2 #4 hypomagnesemia-patient was given magnesium replacement #5 alcoholic hepatitis-liver enzymes are elevated, no treatment needed at this time #6 bipolar disorder-I mentioned placing the patient on medication for bipolar disorder however, Depakote can cause an elevation of the liver enzymes so I have decided not to start this on the patient. Patient states he was on Abilify and lithium in the past and did not feel well taking these medications. For now, patient will not be placed on medications for bipolar disorder. Patient is currently on antidepressants. #7 hypertension-patient will remain on his home medications #8 hyperlipidemia-patient is on Lipitor #9+ methamphetamine tox screen-possibly secondary to trazodone use Charges/Coding Visit Charges Inpatient E&M: 15093 Subs Hosp L2
[2021-08-13] MEDS: Escitalopram Oxalate 10 MG Tablet PO (20:16)
[2021-08-13] MEDS: traZODone 100 MG Tablet PO (20:17)
[2021-08-13] MEDS: Atorvastatin Calcium 40 MG Tablet PO (20:17)
[2021-08-14] MEDS: Phenobarbital 32.4 MG Tablet PO ×2 (02:45→09:31)
[2021-08-14 02:52] VITALS: BP 150/90; PULSE 78; RESP 18; TEMP 36.8; O2SAT 100
[2021-08-14 07:20] VITALS: O2SAT 100
[2021-08-14 09:28] VITALS: BP 136/82; PULSE 81; RESP 20; TEMP 36.9; O2SAT 100
[2021-08-14] MEDS: Lisinopril 20 MG Tablet PO (09:33)
[2021-08-14] MEDS: Enoxaparin 40 MG/0.4 ML Syringe SC (09:33)
[2021-08-14] MEDS: Thiamine Hydrochloride 100 MG Tablet PO (09:33)
[2021-08-14] MEDS: Folic Acid 1 MG Tablet PO (09:33)
[2021-08-14] MEDS: Pantoprazole Sodium 20 MG Tablet PO (09:33)
[2021-08-14] MEDS: amLODIPine 5 MG Tablet PO (09:34)
[2021-08-14] MEDS: Folic Acid/Vitamin B Comp W-C 1 Capsule 1 CAP PO (09:34)
[2021-08-14] MEDS: buPROPion (XL) 300 MG TABLET.XL PO (09:34)
[2021-08-14 09:35] VITALS: PULSE 81
[2021-08-14] MEDS: Metoprolol(XL)Succ 25 MG Tablet PO (09:35)
--- NOTE | 2021-08-14 10:41 | PCM.DC ---
Discharge Instructions Diet Discharge Diet: No restrictions Activity Discharge Activity: Return to Normal Activity Weight Bearing Status: Full weight bearing Follow Up Care Test Results: Test results from this visit will be discussed in further detail at your follow-up appointment, if applicable. Discharge Plan Admission Admit Date/Time: 08/10/21 21:40 Primary Reason for Your Visit: alcohol detox Attending Provider: Harsha Sandoval Primary Care Provider: Enoch Ramirez Discharge Orders/Prescriptions Prescriptions: Continued lisinopril 20 MG tablet 20 mg PO DAILY RF: 0 amlodipine 5 MG tablet 5 mg PO DAILY RF: 0 metoprolol succinate 25 MG tablet extended release 24 hr 25 mg PO DAILY RF: 0 trazodone 100 MG tablet 100 mg PO QHS RF: 0 bupropion HCl 300 MG tablet extended release 24 hr 300 mg PO DAILY RF: 0 atorvastatin 40 mg tablet 40 mg PO QHS RF: 0 folic acid 1 mg Tablet 1 mg PO DAILY RF: 0 escitalopram oxalate 10 mg Tablet 20 mg PO QHS RF: 0 pantoprazole 20 mg tablet,delayed release (DR/EC) 20 mg PO DAILY RF: 0 Virt-Caps 1 mg capsule 1 cap PO DAILY RF: 0 Referrals / Follow Up: Enoch Ramirez MD [Primary Care Provider] - Within 1 Month Disposition Disposition (needs filled in before D/C Order can be placed): Inpatient Rehab Unit/Facility
--- NOTE | 2021-08-14 10:47 | DS.PCM_ITS ---
Providers Date of Admission: 08/10/21 Date of Discharge: 08/14/21 Primary Care Physician: Dr. Enoch Ramirez MD Reason For Visit: DESIRE FOR DETOXIFICATION Diagnosis Discharge Diagnosis (1) Desire for detoxification: Status: Acute (2) Acute hypokalemia: Status: Acute Code(s): E87.6 - Hypokalemia Plan: 1. Acute alcohol withdrawal #2 chronic alcoholism #3 chronic depression #4 hypokalemia #5 hypomagnesemia #6 alcoholic hepatitis #7 essential hypertension #8 hyperlipidemia #9 alcohol intoxication #10 history of bipolar disorder per patient Medications at Discharge Home Medications amlodipine 5 mg PO DAILY 10/15/16 lisinopril 20 mg PO DAILY 10/15/16 metoprolol succinate 25 mg PO DAILY 10/15/16 bupropion HCl 300 mg PO DAILY 07/12/18 trazodone 100 mg PO QHS 07/12/18 atorvastatin 40 mg PO QHS 03/01/21 escitalopram oxalate 20 mg PO QHS 03/01/21 folic acid 1 mg PO DAILY 03/01/21 Virt-Caps 1 cap PO DAILY 04/30/21 pantoprazole 20 mg PO DAILY 04/30/21 Hospital Course Operations None Procedures None Summary of Care Provided Minutes Spent on Discharge: 30 Hospital Course: This 56-year-old white male was seen in the emergency room at [facility] asking for admission to the alcohol detox program here at the hospital due to chronic alcoholism. Patient's tox screen was positive for methamphetamines-this was believed to be secondary to his usage of trazodone at home, his blood alcohol level on admission was 125. Patient was admitted to the medical floor, orders were entered using the alcohol detox order set and during the patient's hospital stay, he was seen by addiction social worker palliative care who arranged for the patient to go into an inpatient alcohol detox program at the time of discharge from the hospital. Patient had no untoward events during his hospitalization, he had no evidence of DTs. Patient stated he had a history of bipolar disorder but he is taking medications for chronic depression at home and does not seem to be having manic episodes, to me this indicated he may not have had a diagnosis of bipolar disorder. I made the determination not to place the patient on any meds for bipolar disorder, he had been on lithium and Abilify in the past and he stated he did not tolerate these medications. Patient's potassium was low-this was corrected using potassium supplementation, patient's magnesium was also low and magnesium supplementation was given to the patient. On 08/14/2021, patient was seen and examined: On examination he appeared in good health and spirits. Vital signs as documented. Skin warm and dry and without overt rashes. Neck without JVD, neck was supple, trachea midline, thyroid was normal. Lungs clear bilaterally, normal air movement was noted. Heart exam notable for regular rhythm, normal sounds and absence of murmurs, rubs or lomeli ps. Abdomen unremarkable and without evidence of organomegaly, masses, or abdominal aortic enlargement. Bowel sounds are present, abdomen is not distended. Extremities nonedematous, no cyanosis was noted, no clubbing was noted. Neuro: Cranial nerves II through XII are grossly intact, no focal motor deficits were noted, sensation to light touch and pinprick intact, motor exam 5/5 throughout. Psych: Patient is alert and oriented x3, he does not appear anxious or depressed, he does not appear agitated. Patient appears stable for discharge to an inpatient alcohol detox facility on 08/14/21 Weight / BMI Weight Weight: 76.5 kg Body Mass Index (BMI) 27.1 ABG / Lab / Microbiology Data Result Diagrams: 08/10/21 19:40 08/13/21 04:20 D/C Instructions Discharge Diet: No restrictions Weight Bearing Status: Full weight bearing Meaningful Use Info Meaningful Use Diagnoses (Choose all that apply): None applicable Discharge Plan Admission Admit Date/Time: 08/10/21 21:40 Primary Reason for Your Visit: alcohol detox Attending Provider: Harsha Sandoval Primary Care Provider: Enoch Ramirez Discharge Orders/Prescriptions Prescriptions: Continued lisinopril 20 MG tablet 20 mg PO DAILY RF: 0 amlodipine 5 MG tablet 5 mg PO DAILY RF: 0 metoprolol succinate 25 MG tablet extended release 24 hr 25 mg PO DAILY RF: 0 trazodone 100 MG tablet 100 mg PO QHS RF: 0 bupropion HCl 300 MG tablet extended release 24 hr 300 mg PO DAILY RF: 0 atorvastatin 40 mg tablet 40 mg PO QHS RF: 0 folic acid 1 mg Tablet 1 mg PO DAILY RF: 0 escitalopram oxalate 10 mg Tablet 20 mg PO QHS RF: 0 pantoprazole 20 mg tablet,delayed release (DR/EC) 20 mg PO DAILY RF: 0 Virt-Caps 1 mg capsule 1 cap PO DAILY RF: 0 Referrals / Follow Up: Enoch Ramirez MD [Primary Care Provider] - Within 1 Month Disposition Disposition (needs filled in before D/C Order can be placed): Inpatient Rehab Unit/Facility Charges/Coding Visit Charges Inpatient E&M: 66001 Disch Hosp
[2021-08-14] MEDS: Ibuprofen 600 MG Tablet PO (11:27)
== END 2021-08-14 12:01 | DRG 775 ==
LOC: ED 21:23 → MS3 21:59
PROVIDERS: Admitting Provider Hospitalist; Emergency Provider Emergency Medicine; PCP Family Medicine; Visit Provider Internal Medicine
DX: F10.239 Alcohol dependence with withdrawal, unspecified (principal); F31.9 Bipolar disorder, unspecified; K70.10 Alcoholic hepatitis without ascites; E87.6 Hypokalemia; I10 Essential (primary) hypertension; E78.5 Hyperlipidemia, unspecified; G47.33 Obstructive sleep apnea (adult) (pediatric); K21.9 Gastro-esophageal reflux disease without esophagitis; E83.42 Hypomagnesemia; Z56.0 Unemployment, unspecified; Z79.899 Other long term (current) drug therapy; Z87.891 Personal history of nicotine dependence; Y90.6 Blood alcohol level of 120-199 mg/100 ml
CPT/HCPCS: 36415; 80048; 80053; 80307; 82077; 83735; 85025; 93005; 99285; J7050; A4216

== ENCOUNTER 2023-07-09 13:46 | Emergency (ER) | payer MEDICAID, SELFPAY ==
[2023-07-09 13:47] VITALS: BP 130/77; PULSE 66; RESP 19; TEMP 36.4; O2SAT 99; BMI 30.8
--- NOTE | 2023-07-09 14:06 | RAD_ITS ---
STUDY: X-RAY CHEST REASON FOR EXAM: Male, 58 years old. CHEST PAIN chest pain TECHNIQUE: XR Chest 1 View COMPARISON: None FINDINGS: There is no demonstrated pleural abnormality. Normal size heart. Normal mediastinum and иван. Normal visualized pulmonary arteries. Normal visualized aortic arch and descending thoracic aorta. Normal visualized thoracic spine. Normal visualized ribs, clavicles, and shoulders. There are no acute findings of the upper abdomen. RAD/Chest 1 View (Portable) IMPRESSION: There are no acute findings. Electronically Signed: Demarcus Fregoso MD at 14:26 EST ,
--- NOTE | 2023-07-09 14:06 | EKG12_ITS ---
Test Reason : CP Blood Pressure : / mmHG Vent. Rate : 062 BPM Atrial Rate : 062 BPM P-R Int : 156 ms QRS Dur : 084 ms QT Int : 430 ms P-R-T Axes : 046 -08 032 degrees QTc Int : 436 ms Normal sinus rhythm Normal ECG Confirmed by MUMTAZ ISABEL MD ([id number]), commissioning editor STACY TAMEZ ([id number]) on 07/11/2023 8:35:55 AM Referred By: MELISSA Confirmed By:MUMTAZ ISABEL MD
--- NOTE | 2023-07-09 14:07 | EDS_ITS ---
HPI History of Present Illness Chief Complaint: Chest Pain Informant: patient Narrative Narrative: Patient presents after an episode of chest pain. Patient states he got some aching but also sharp pain in the mid lower sternum. He states he thinks it radiated to his right shoulder but he thought maybe that was just his anxiety. He did feel slightly short of breath. He felt nauseated but did not actually vomit. He did get a bag in his as he thought he would vomit. No diaphoresis. He did feel lightheaded. His pulse was about 66 during this per his watch. It is gone now. He has not had this before. Patient states he is not sure that he was actually short of breath or lightheaded or if it was just his anxiety. He had a stress test but it was many years ago. He does have a history of high blood pressure high cholesterol diabetes. He is never been a smoker. His dad had stents but probably in his mid 60s. Patient does evidently have history of a cardiac arrest in May of this year. He was seen at [facility] and then transferred to [place]. He states a heart catheterization was never done. He has never had that done. They thought his cardiac arrest was due to dental infections and he had started drinking alcohol again. [facility] Medical History Acute alcoholic pancreatitis Alcohol abuse Alcohol dependence Alcohol withdrawal Alcoholic hepatitis Anemia Anxiety Anxiety Bipolar disorder Chronic pain Cirrhosis Depression Depression Essential (primary) hypertension ETOH abuse Former smoker GERD (gastroesophageal reflux disease) Hepatitis Hyperbilirubinemia Hypertension Hypokalemia Hypomagnesemia Insomnia Leukopenia Non-smoker GERMANIA (obstructive sleep apnea) Pancreatitis Pancreatitis Polysubstance dependence Sleep apnea Sleep apnea Substance abuse Home Medications amlodipine 5 mg tablet 5 mg PO DAILY BP 10/15/16 [History Last Taken 08/10/21] lisinopril 20 mg tablet 20 mg PO DAILY BP 10/15/16 [History Last Taken 08/10/21] metoprolol succinate 25 mg tablet,extended release 24 hr 25 mg PO DAILY BP 10/15/16 [History Last Taken 08/10/21] bupropion HCl 300 mg 24 hr tablet, extended release 300 mg PO DAILY depression 07/12/18 [History Last Taken 08/10/21] trazodone 100 mg tablet 100 mg PO QHS sleep/ depression 07/12/18 [History Last Taken 08/09/21] atorvastatin 40 mg tablet 40 mg PO QHS cholesterol 03/01/21 [History Last Taken 08/09/21] escitalopram oxalate 10 mg tablet 20 mg PO QHS depression 03/01/21 [History Last Taken 08/10/21] folic acid 1 mg tablet 1 mg PO DAILY supplement 03/01/21 [History Last Taken 08/10/21] pantoprazole 20 mg tablet,delayed release 20 mg PO DAILY GERD 04/30/21 [History Last Taken 08/10/21] vitamin B complex and vitamin C no.20-folic acid 1 mg capsule (Virt-Caps) 1 cap PO DAILY SUPPLEMENT 04/30/21 [History Last Taken 08/10/21] Allergy/AdvReac Type Severity Reaction Status Date / Time No Known Allergies Allergy Verified 07/09/23 13:47 Family History Mother Cancer Father PD (Parkinson's disease) Social History current occupational status: unemployed Smoking Status: Never smoker alcohol intake: current alcohol intake frequency: 3 or more drinks per day substance use type: does not use ROS ROS ED ROS Narrative A complete review of systems was performed and is negative except as documented in the history of present illness. Some specific details below. Constitutional: No recent fevers or chills. He felt fine prior to this. EYE: No discharge, visual complaints, or pain. ENT: No difficulty swallowing. No swelling. No pain. No reflux symptoms. He states when it happened his mouth garcia a lot and he thought he would vomit but did not. CV: See history of present illness. Respiratory: See history of present illness. Mild dyspnea with this but that is resolved also. GI: No abdominal pain. He had nausea but did not vomit. No diarrhea. : No frequency dysuria or hematuria. Musculoskeletal: No recent trauma. No pains. No swelling. Skin: No rash. Nondiaphoretic. Neuro: No weakness or numbness. Endocrine: No polyuria or polydipsia. EXAM Physical Exam Narrative Exam Narrative: CONSTITUTIONAL: Patient is nontoxic in appearance. The patient looks comfortable. Work of breathing looks normal. HEENT: No notable trauma. Mucous membranes moist. No sinus tenderness. No indication of pain with swallowing. EYES: No conjunctival injection. No proptosis. NECK:No JVD. No stridor. CARDIOVASCULAR: Regular rate. Regular rhythm. No notable murmur. No JVD. RESPIRATORY: No respiratory distress. Breathing is unlabored. No wheezes. No rhonchi. No rales. No pain with a deep breath. No chest wall tenderness. No sternal tenderness. GASTROINTESTINAL: Not distended. Bowel sounds are normal. No tenderness. No guarding. No rebound. No palpable mass. No bruit is heard. GENITOURINARY: No tenderness over the bladder. No CVA tenderness. MUSCULOSKELETAL: Atraumatic. No peripheral edema. No cord. No tenderness along the deep venous system. No asymmetry. No distended veins. NEUROLOGICAL: Patient is alert and appropriate. No focal deficit noted. SKIN: No noted rashes. No diaphoresis. PSYCHIATRIC: Patient is calm. Mood is appropriate. Const Vital Signs: 07/09/23 13:47 07/09/23 13:51 07/09/23 14:09 Temperature 97.5 F L Temperature Source Oral Pulse Rate 66 Respiratory Rate 19 H Respiratory Effort Normal Non-Labored Blood Pressure 130/77 H Blood Pressure Mean 94 Pulse Ox 99 98 Oxygen Delivery Method Room Air Room Air 07/09/23 14:46 07/09/23 16:00 07/09/23 17:00 Temperature Temperature Source Pulse Rate 65 65 66 Respiratory Rate 12 14 15 Respiratory Effort Blood Pressure 124/84 H 126/81 H 115/91 H Blood Pressure Mean 97 96 99 Pulse Ox 99 98 97 Oxygen Delivery Method Room Air Room Air Room Air Heart Score History: Slightly/Non-Suspicious ECG: Normal Age: >45 - <65 years Risk Factors: >/= 3 Risk Factors or History of CAD Troponin: </= Normal Limit Score: 3 MDM MDM MDM Narrative Medical decision making narrative: My end pending interpretation of the patient's single view chest x-ray shows no acute process and final reading was similar. Patient's CBC shows minimal anemia. Platelets and white count are normal. Patient's electrolytes are overall normal. Minimally low sodium and slightly high glucose. Patient's first troponin is 5. Patient's second troponin is 4. Patient states he feels great. He has no symptoms now. He is not sure if this was his anxiety. He is comfortable going home. He did have some chest pain. He is now saying he is not sure if it radiated and he is not sure if he was short of breath or that was just anxiety. He has an appointment with a new primary physician this Monday. If he has further symptoms he should return but with 2 troponins below 7 asymptomatic we will have him follow-up. We attempted to get results from [place] but have never been able to do that. Lab Data Labs: Laboratory Results - last 24 hr 07/09/23 07/09/23 13:53 16:07 WBC 6.6 RBC 4.08 L Hgb 10.8 L Hct 34.1 L MCV 83.6 MCH 26.5 L MCHC 31.7 L RDW Std Deviation 50.2 H RDW Coeff of [place] 16.7 H Plt Count 283 MPV 9.7 Immature Gran % (Auto) 0.600 Neut % (Auto) 50.4 Lymph % (Auto) 36.9 Elk % (Auto) 8.2 Eos % (Auto) 3.0 Baso % (Auto) 0.9 Absolute Neuts (auto) 3.3 Absolute Lymphs (auto) 2.44 Nucleated RBC % 0 Sodium 132 L Potassium 4.7 Chloride 103 Carbon Dioxide 24.0 Anion Gap 5 BUN 15 Creatinine 1.05 Estim Creat Clear Calc 68.36 Est GFR (MDRD) Af Amer 93 Est GFR (MDRD) Non-Af 77 BUN/Creatinine Ratio 14.3 Glucose 177 H Calcium 9.0 Troponin I High Sens 5 4 Radiography Diagnostic Testing: Clinical Impression(s) from Imaging Studies Chest X-Ray 07/09/23 14:06 IMPRESSION: There are no acute findings. Electronically Signed: Demarcus Fregoso MD at 14:26 EST , EKG Initial EKG: Comments: My independent interpretation of the patient's EKG shows normal sinus rhythm with a rate of 62. No ectopy. Mild baseline variation but no acute ST elevation or depression. MS interval, QRS duration and QTc are normal. Of note patient was not having symptoms during this. Discharge Plan Triage Chief Complaint: Chest Pain ED Provider: Vern Austin Dx/Rx/DC Orders Clinical Impression: Chest pain Instructions: ED Chest Pain, Uncertain Cause Prescriptions: No Action lisinopril 20 MG tablet 20 mg PO DAILY Patient Comments: blood pressure amlodipine 5 MG tablet 5 mg PO DAILY Patient Comments: blood pressure metoprolol succinate 25 MG tablet extended release 24 hr 25 mg PO DAILY Patient Comments: blood pressure trazodone 100 MG tablet 100 mg PO QHS bupropion HCl 300 MG tablet extended release 24 hr 300 mg PO DAILY atorvastatin 40 mg tablet 40 mg PO QHS folic acid 1 mg Tablet 1 mg PO DAILY escitalopram oxalate 10 mg Tablet 20 mg PO QHS pantoprazole 20 mg tablet,delayed release (DR/EC) 20 mg PO DAILY Virt-Caps 1 mg capsule 1 cap PO DAILY Primary Care Provider: Katie Serrano Referrals: Enoch Ramirez MD [Non-Staff] - Activity Restrictions/Additional Instructions: Follow-up with your new primary care visit this Monday as planned. Disposition Disposition: Home, Self Care
[2023-07-09 14:09] VITALS: O2SAT 98
[2023-07-09 14:24] LABS: Absolute Lymphocyte Count 2.44 X10^3/uL (0.83-4.51); Absolute Neutrophil Count 3.3 X10^3/uL (2.0-7.7); Basophil# 0.06 X10^3/uL; Basophil% 0.9 % (0-1); Hematocrit 34.1 % (40-54); Hemoglobin 10.8 g/dL (13.0-16.5); Lymphocyte # 2.44 X10^3/ul (0.83-4.51); Lymphocyte % 36.9 % (19-41); Mean Corp Hgb Conc 31.7 g/dL (32-36); Mean Corpuscular Hgb 26.5 pg (27.0-32.0); Mean Corpuscular Volume 83.6 fL (80-94); Mean Platelet Vol. 9.7 fl (6.2-12.0); Monocyte# 0.54 X10^3/uL; Monocyte% 8.2 % (0-10); NRBC Flagged by Analyzer 0 % (0-5); Neutrophil # 3.33 X10^3/uL (2.7-7.7); Neutrophil % 50.4 % (47-70); Platelet Count 283 K/mm3 (150-450); RBC Distribution Width CV 16.7 % (11.6-14.6); RBC Distribution Width SD 50.2 fl (35.1-43.9); Red Blood Count 4.08 M/mm3 (4.6-6.2); White Blood Count 6.6 K/mm3 (4.4-11.0)
[2023-07-09 14:32] LABS: Anion Gap 5 (5-15); BUN 15 mg/dL (7-18); BUN/Creat Ratio 14.3 RATIO (10-20); Chloride 103 mmol/L (98-107); Creatinine, Serum 1.05 mg/dL (0.70-1.30); EST Glomerular Filtration Rate 77 mL/min (>60); Est Glom Filt Rate - Afr Amer 93 mL/min (>60); Estimated Creatinine Clearance 68.36 ml/min; Glucose 177 mg/dL (74-106); Potassium 4.7 mmol/L (3.5-5.1); Sodium Level 132 mmol/L (136-145); Troponin-I HS (w/2H Reflex) 5 pg/mL (3.0-78.0)
[2023-07-09 14:46] VITALS: BP 124/84; PULSE 65; RESP 12; O2SAT 99
[2023-07-09 16:00] VITALS: BP 126/81; PULSE 65; RESP 14; O2SAT 98
[2023-07-09 16:12] LABS: Reflex Troponin-HS? (from REC) Y
[2023-07-09 16:33] LABS: Troponin-I HS 4 pg/mL (3.0-78.0)
[2023-07-09 17:00] VITALS: BP 115/91; PULSE 66; RESP 15; O2SAT 97
[2023-07-09 17:47] VITALS: BP 130/93; PULSE 71; RESP 17; O2SAT 98
== END 2023-07-09 17:49 | disposition home or self-care (01) ==
PROVIDERS: Emergency Provider Emergency Medicine; PCP Family Medicine; Visit Provider Emergency Medicine
DX: R07.9 Chest pain, unspecified (principal); E11.9 Type 2 diabetes mellitus without complications; R06.02 Shortness of breath; D64.9 Anemia, unspecified; I10 Essential (primary) hypertension; E78.00 Pure hypercholesterolemia, unspecified
CPT/HCPCS: 71045; 80048; 84484; 85025; 93005; 99284; A4216

== ENCOUNTER 2023-07-16 11:41 | Inpatient (IN) | payer MEDICAID, SELFPAY ==
[2023-07-16 11:42] VITALS: BP 138/91; PULSE 115; RESP 17; TEMP 36.7; O2SAT 100; BMI 29.7
--- NOTE | 2023-07-16 11:56 | EDS_ITS ---
HPI <ALEXANDRU Loaiza - Last Filed: 07/16/23 12:50> History of Present Illness Chief Complaint: Substance Abuse Narrative Narrative: Patient presenting today requesting detox from alcohol. He reports that he drinks daily, around half a gallon of gas station vodka per day. He reports that his last drink was 1 hour prior to arrival. He reports that he has been drinking for over 20 years, he has detoxed in the past. He reports that he is scheduled to go to a rehab facility in [place] after detox. He denies any history of withdrawal seizures. He reports that he does not feel like he is going through withdrawal yet. PMH includes hypertension, diabetes mellitus, depression, and anxiety. He reports that he did go into cardiac arrest in May 2023, he suspects that it was due to a dental infection and also was drinking at that time. PFSH <ALEXANDRU Loaiza - Last Filed: 07/16/23 12:50> [facility] Medical History Acute alcoholic pancreatitis Alcohol abuse Alcohol dependence Alcohol withdrawal Alcoholic hepatitis Anemia Anxiety Anxiety Bipolar disorder Chronic pain Cirrhosis Depression Depression Essential (primary) hypertension ETOH abuse Former smoker GERD (gastroesophageal reflux disease) Hepatitis Hyperbilirubinemia Hypertension Hypokalemia Hypomagnesemia Insomnia Leukopenia Non-smoker GERMANIA (obstructive sleep apnea) Pancreatitis Pancreatitis Polysubstance dependence Sleep apnea Sleep apnea Substance abuse Home Medications amlodipine 5 mg tablet 10 mg PO DAILY BP 10/15/16 [History Last Taken 07/16/23] metoprolol succinate 25 mg tablet,extended release 24 hr 25 mg PO DAILY BP 10/15/16 [History Last Taken 08/10/21] bupropion HCl 300 mg 24 hr tablet, extended release 300 mg PO DAILY depression 07/12/18 [History Last Taken 08/10/21] trazodone 100 mg tablet 100 mg PO QHS PRN sleep/ depression 07/12/18 [History Last Taken 08/09/21] escitalopram oxalate 10 mg tablet 20 mg PO QHS depression 03/01/21 [History Last Taken 08/10/21] folic acid 1 mg tablet 1 mg PO DAILY supplement 03/01/21 [History Last Taken 08/10/21] pantoprazole 20 mg tablet,delayed release 40 mg PO DAILY GERD 04/30/21 [History Last Taken 07/16/23] vitamin B complex and vitamin C no.20-folic acid 1 mg capsule (Virt-Caps) 1 cap PO DAILY SUPPLEMENT 04/30/21 [History Last Taken 08/10/21] lisinopril 40 mg tablet 40 mg PO DAILY blood pressure 07/16/23 [History Last Taken Unknown] metformin 1,000 mg tablet 1,000 mg PO BID glucose 07/16/23 [History Last Taken Unknown] risperidone 1 mg tablet 1 mg PO QHS sleep 07/16/23 [History Last Taken Unknown] tamsulosin 0.4 mg capsule 0.4 mg PO DAILY prostate 07/16/23 [History Last Taken Unknown] Allergy/AdvReac Type Severity Reaction Status Date / Time No Known Allergies Allergy Verified 07/09/23 13:47 Family History Mother Cancer Father PD (Parkinson's disease) Social History current occupational status: unemployed Smoking Status: Never smoker alcohol intake: current alcohol intake frequency: 3 or more drinks per day substance use type: does not use ROS <ALEXANDRU Loaiza - Last Filed: 07/16/23 12:50> ROS ED Constitutional Constitutional ED: Denies chills, fever(s) or sweats Eyes Eyes: Denies blurry vision or diplopia Cardiovascular Cardiovascular: Denies chest pain or palpitations Respiratory/Chest Respiratory/Chest: Denies cough or dyspnea Gastrointestinal Gastrointestinal: Denies abdominal pain, nausea or vomiting Musculoskeletal Musculoskeletal: Denies arthralgias or myalgias Integumentary Denies rash Neurologic Neurologic: Denies weakness Psychiatric Psychiatric: Reports anxiety and depression; Denies suicidal ideation or suicidal thoughts EXAM <ALEXANDRU Loaiza - Last Filed: 07/16/23 12:50> Physical Exam Const Vital Signs: 07/16/23 11:42 Temperature 98.1 F Temperature Source Temporal Pulse Rate 115 H Respiratory Rate 17 Blood Pressure 138/91 H Blood Pressure Mean 106 Pulse Ox 100 Oxygen Delivery Method Room Air Positive well nourished, well developed and no apparent distress General Appearance ED: well developed HEENT Reports normocephalic and head/scalp atraumatic Mouth ED: Yes moist mucous membranes normal Eyes PERRL and EOMs intact bilaterally Neck full ROM and supple Chest Wall inspection of chest normal Resp normal respiratory effort and clear to auscultation bilaterally Cardio regular rate and regular rhythm GI soft to palpation, non-tender, non-distended and no masses Back/Spine normal ROM and normal to inspection Extremity normal to inspection and full ROM Neuro oriented x3, CN's II-XII intact bilaterally, moves all extremities, no focal motor deficits and no sensory deficits noted Sensorium / Orientation: awake and alert Psych mental status grossly normal and thought process normal Skin no rashes or lesions noted and no wounds <Dr. Tera Ortiz MD - Last Filed: 07/16/23 15:22> Physical Exam Const Vital Signs: 07/16/23 11:42 Temperature 98.1 F Temperature Source Temporal Pulse Rate 115 H Respiratory Rate 17 Blood Pressure 138/91 H Blood Pressure Mean 106 Pulse Ox 100 Oxygen Delivery Method Room Air MDM <ALEXANDRU Loaiza - Last Filed: 07/16/23 12:50> [facility] MDM Narrative Medical decision making narrative: Patient presenting today requesting to detox from alcohol. Last drink was 1 hour prior to arrival. He does not feel like he is going through withdrawal yet. He reports that he feels dehydrated and is requesting fluids, he will be given a liter of IV fluids. He has a longstanding history of alcohol abuse, he has detoxed before. He does appear slightly intoxicated. Labs will be obtained and he will be admitted to the hospital for detox. Lab Data Labs: Laboratory Results - last 24 hr 07/16/23 12:05 WBC 9.1 RBC 4.57 L Hgb 12.2 L Hct 37.5 L MCV 82.1 MCH 26.7 L MCHC 32.5 RDW Std Deviation 50.0 H RDW Coeff of [place] 16.6 H Plt Count 358 MPV 8.7 Immature Gran % (Auto) 0.200 Neut % (Auto) 50.2 Lymph % (Auto) 42.2 H [place] % (Auto) 6.0 Eos % (Auto) 0.7 Baso % (Auto) 0.7 Absolute Neuts (auto) 4.6 Absolute Lymphs (auto) 3.82 Nucleated RBC % 0 Sodium 135 L Potassium 4.8 Chloride 100 Carbon Dioxide 16.0 L Anion Gap 19 H BUN 14 Creatinine 1.39 H Estim Creat Clear Calc 51.64 Est GFR (MDRD) Af Amer 67 Est GFR (MDRD) Non-Af 56 L BUN/Creatinine Ratio 10.1 Glucose 147 H Calcium 9.0 Total Bilirubin 0.40 AST 50 H ALT 40 Alkaline Phosphatase 110 Total Protein 8.3 H Albumin 4.1 Globulin 4.2 Albumin/Globulin Ratio 1.0 Ethyl Alcohol 290.0 <Dr. Tera Ortiz MD - Last Filed: 07/16/23 15:22> MDM MDM Narrative Medical decision making narrative: Patient presenting today requesting to detox from alcohol. Last drink was 1 hour prior to arrival. He does not feel like he is going through withdrawal yet. He reports that he feels dehydrated and is requesting fluids, he will be given a liter of IV fluids. He has a longstanding history of alcohol abuse, he has detoxed before. He does appear slightly intoxicated. Labs will be obtained and he will be admitted to the hospital for detox. I have personally performed a face to face assessment of the patient and have reviewed the CASANDRA Note. I performed a substantive portion of the visit including all aspects of the following. My kendall findings include: History is 58-year-old male history of alcohol abuse drinks about a gallon of vodka a day. Requesting detox. Last drink was within the last several hours. Denies other complaints. Last detox was about a year or so ago. Exam is [well-appearing 58-year-old male. Vital signs are stable he is tachycardic at 115. No distress. HEENT exam unremarkable. Neck nontender no lymphadenopathy. Lungs clear to auscultation bilaterally. Heart tachycardic rate about 150 no murmur. Chest wall and ribs nontender. Abdomen soft nontender. Moving all 4 extremities. Equal symmetrical 5-5 professional driver strength. Do rsi plantarflexion intact. No peripheral edema. Neurologically is awake and alert with no focal motor deficits. Answering questions and following commands.] Medical Decision Making [58-year-old male history of alcohol abuse requesting inpatient detox. Screening labs being obtained. You are already spoke to the hospitalist about admission.] Other additions or changes: [None] History & Record Review Discussion w/independent historian: Patient Additional record(s) reviewed:: Prior inpatient record, Prior outpatient record, Prior ED visit and Prior labs Lab Data Attestation: I reviewed the patient's lab results. Lab results narrative: CBC shows a white count of 9. H&H 12.2 and 37 he has a chronic baseline anemia. Platelets 358. Chemistries showed a gap of 19 most likely secondary to alcohol ketosis. BUN and creatinine are 14 and 1.3. Liver enzymes unremarkable. Glucose 147. Alcohol level 290. Labs: Laboratory Results - last 24 hr 07/16/23 12:05 WBC 9.1 RBC 4.57 L Hgb 12.2 L Hct 37.5 L MCV 82.1 MCH 26.7 L MCHC 32.5 RDW Std Deviation 50.0 H RDW Coeff of [place] 16.6 H Plt Count 358 MPV 8.7 Immature Gran % (Auto) 0.200 Neut % (Auto) 50.2 Lymph % (Auto) 42.2 H [place] % (Auto) 6.0 Eos % (Auto) 0.7 Baso % (Auto) 0.7 Absolute Neuts (auto) 4.6 Absolute Lymphs (auto) 3.82 Nucleated RBC % 0 Sodium 135 L Potassium 4.8 Chloride 100 Carbon Dioxide 16.0 L Anion Gap 19 H BUN 14 Creatinine 1.39 H Estim Creat Clear Calc 51.64 Est GFR (MDRD) Af Amer 67 Est GFR (MDRD) Non-Af 56 L BUN/Creatinine Ratio 10.1 Glucose 147 H Calcium 9.0 Total Bilirubin 0.40 AST 50 H ALT 40 Alkaline Phosphatase 110 Total Protein 8.3 H Albumin 4.1 Globulin 4.2 Albumin/Globulin Ratio 1.0 Ethyl Alcohol 290.0 Discharge Plan Dx/Rx/DC Orders Clinical Impression: Desire for detoxification, Alcohol abuse, Alcohol intoxication Disposition Disposition: Acute Care Hospital [facility] Discharge Date/Time: 07/16/23 13:22
--- NOTE | 2023-07-16 11:59 | NURSING ---
DR RACHID VARGHESELETTE
[2023-07-16 12:12] LABS: Absolute Lymphocyte Count 3.82 X10^3/uL (0.83-4.51); Absolute Neutrophil Count 4.6 X10^3/uL (2.0-7.7); Basophil# 0.06 X10^3/uL; Basophil% 0.7 % (0-1); Eosinophil# 0.06 X10^3/uL; Eosinophils% 0.7 % (0-5); Hematocrit 37.5 % (40-54); Hemoglobin 12.2 g/dL (13.0-16.5); Lymphocyte # 3.82 X10^3/ul (0.83-4.51); Lymphocyte % 42.2 % (19-41); Mean Corp Hgb Conc 32.5 g/dL (32-36); Mean Corpuscular Hgb 26.7 pg (27.0-32.0); Mean Corpuscular Volume 82.1 fL (80-94); Mean Platelet Vol. 8.7 fl (6.2-12.0); Monocyte# 0.54 X10^3/uL; NRBC Flagged by Analyzer 0 % (0-5); Neutrophil # 4.56 X10^3/uL (2.7-7.7); Neutrophil % 50.2 % (47-70); Platelet Count 358 K/mm3 (150-450); RBC Distribution Width CV 16.6 % (11.6-14.6); Red Blood Count 4.57 M/mm3 (4.6-6.2); White Blood Count 9.1 K/mm3 (4.4-11.0)
[2023-07-16] MEDS: 0.9% Normal Saline (1000mL) 1,000 ML 999 ML IV (12:24)
[2023-07-16 12:30] LABS: AST(SGOT) 50 U/L (15-37); Alanine Aminotransfer ALT/SGPT 40 U/L (16-61); Albumin, Serum 4.1 g/dL (3.2-5.0); Alkaline Phosphatase 110 U/L (45-117); Anion Gap 19 (5-15); BUN 14 mg/dL (7-18); BUN/Creat Ratio 10.1 RATIO (10-20); Chloride 100 mmol/L (98-107); Creatinine, Serum 1.39 mg/dL (0.70-1.30); EST Glomerular Filtration Rate 56 mL/min (>60); Est Glom Filt Rate - Afr Amer 67 mL/min (>60); Estimated Creatinine Clearance 51.64 ml/min; Globulin 4.2 g/dL (2.2-4.2); Glucose 147 mg/dL (74-106); Potassium 4.8 mmol/L (3.5-5.1); Protein, Total 8.3 g/dL (6.4-8.2); Sodium Level 135 mmol/L (136-145)
--- NOTE | 2023-07-16 12:52 | NURSING ---
MED SURG JOPPERI DETOX FROM ALCOHOL
--- NOTE | 2023-07-16 13:11 | HP.PCM.HOS_ITS ---
HPI - General General Date of Admission: 07/16/23 Date of Service: 07/16/23 Chief Complaint: Alcohol withdrawal HPI Narrative CHERELLE STEEN, is a 58 M who presents seeking treatment for alcohol withdrawal. Patient drinks 1/5-1/2 a gallon of low proof vodka per day. His last drink was shortly before coming to the emergency room. No acute issues at this time. Patient is requesting treatment for alcohol withdrawal. [facility] Medical History Acute alcoholic pancreatitis Alcohol abuse Alcohol dependence Alcohol withdrawal Alcoholic hepatitis Anemia Anxiety Anxiety Bipolar disorder Chronic pain Cirrhosis Depression Depression Essential (primary) hypertension ETOH abuse Former smoker GERD (gastroesophageal reflux disease) Hepatitis Hyperbilirubinemia Hypertension Hypokalemia Hypomagnesemia Insomnia Leukopenia Non-smoker GERMANIA (obstructive sleep apnea) Pancreatitis Pancreatitis Polysubstance dependence Sleep apnea Sleep apnea Substance abuse Home Medications amlodipine 5 mg tablet 5 mg PO DAILY BP 10/15/16 [History Last Taken 08/10/21] lisinopril 20 mg tablet 20 mg PO DAILY BP 10/15/16 [History Last Taken 08/10/21] metoprolol succinate 25 mg tablet,extended release 24 hr 25 mg PO DAILY BP 10/15/16 [History Last Taken 08/10/21] bupropion HCl 300 mg 24 hr tablet, extended release 300 mg PO DAILY depression 07/12/18 [History Last Taken 08/10/21] trazodone 100 mg tablet 100 mg PO QHS sleep/ depression 07/12/18 [History Last Taken 08/09/21] atorvastatin 40 mg tablet 40 mg PO QHS cholesterol 03/01/21 [History Last Taken 08/09/21] escitalopram oxalate 10 mg tablet 20 mg PO QHS depression 03/01/21 [History Last Taken 08/10/21] folic acid 1 mg tablet 1 mg PO DAILY supplement 03/01/21 [History Last Taken 08/10/21] pantoprazole 20 mg tablet,delayed release 20 mg PO DAILY GERD 04/30/21 [History Last Taken 08/10/21] vitamin B complex and vitamin C no.20-folic acid 1 mg capsule (Virt-Caps) 1 cap PO DAILY SUPPLEMENT 04/30/21 [History Last Taken 08/10/21] Allergy/AdvReac Type Severity Reaction Status Date / Time No Known Allergies Allergy Verified 07/09/23 13:47 Family History Mother Cancer Father PD (Parkinson's disease) Social History current occupational status: unemployed Smoking Status: Never smoker alcohol intake: current alcohol intake frequency: 3 or more drinks per day substance use type: does not use ROS ROS Narrative Some abdominal and back pain. All review of systems were negative except as mentioned above in the history of present illness and the other review of systems. Vital Signs Vital Signs Vital Signs: 07/16/23 11:42 Temperature 36.7 C Temperature Source Temporal Pulse Rate 115 H Respiratory Rate 17 Blood Pressure 138/91 H Blood Pressure Mean 106 Pulse Ox 100 Oxygen Delivery Method Room Air Weight Weight: 83.461 kg Body Mass Index (BMI) 29.7 Physical Exam Const alert and no apparent distress HEENT normocephalic Resp normal respiratory effort and no retractions Cardio regular rate, regular rhythm, S1 normal heart sound and S2 normal heart sound GI normal to inspection, nondistended, normoactive bowel sounds, soft to palpation, non-tender and non-distended Extremity normal to inspection Neuro Sensorium / Orientation: awake Results Lab / Micro Data 07/16/23 12:05 07/16/23 12:05 Labs: Laboratory Results - last 24 hr 07/16/23 12:05: WBC 9.1, RBC 4.57 L, Hgb 12.2 L, Hct 37.5 L, MCV 82.1, MCH 26.7 L, MCHC 32.5, RDW Std Deviation 50.0 H, RDW Coeff of [place] 16.6 H, Plt Count 358, MPV 8.7, Immature Gran % (Auto) 0.200, Neut % (Auto) 50.2, Lymph % (Auto) 42.2 H , [place] % (Auto) 6.0, Eos % (Auto) 0.7, Baso % (Auto) 0.7, Absolute Neuts (auto) 4.6, Absolute Lymphs (auto) 3.82, Nucleated RBC % 0, Sodium 135 L, Potassium 4.8, Chloride 100, Carbon Dioxide 16.0 L, Anion Gap 19 H, BUN 14, Creatinine 1.39 H, Estim Creat Clear Calc 51.64, Est GFR (MDRD) Af Amer 67, Est GFR (MDRD) Non-Af 56 L, BUN/Creatinine Ratio 10.1, Glucose 147 H, Calcium 9.0, Total Bilirubin 0.40, AST 50 H, ALT 40, Alkaline Phosphatase 110, Total Protein 8.3 H, Albumin 4.1, Globulin 4.2, Albumin/Globulin Ratio 1.0, Ethyl Alcohol 290.0 Assessment & Plan Assessment/Plan (1) Desire for detoxification: PLAN: Plan Impending alcohol withdrawal. * Patient currently asymptomatic but just drink before he came here. * Patient will have a phenobarbital taper ordered. Patient also have additional medication to help with somatic plaints that may occur going through withdrawal. * Patient already involved with the program but will have addiction liaison evaluate the patient to see if any additional resources could be available for him. Chronic conditions * Hypertension: Continue with lisinopril and metoprolol. * Depression: Continue with escitalopram. VTE prophylaxis: Low risk not indicated at present. Charges/Coding Visit Charges Inpatient E&M: 68322 Init Hosp L2
[2023-07-16 13:41] VITALS: BP 101/43; PULSE 101; RESP 18; TEMP 36.8; O2SAT 96
[2023-07-16 13:42] VITALS: BMI 29.9
[2023-07-16] MEDS: Acetaminophen 500 MG Tablet PO (13:52)
[2023-07-16] MEDS: Ondansetron 8 MG Tablet PO (13:52)
[2023-07-16] MEDS: hydrOXYzine PAM 25 MG Capsule 50 MG PO ×2 (13:52→18:22)
[2023-07-16] MEDS: Phenobarbital 32.4 MG Tablet 64.7999999999999972 MG PO ×3 (13:52→22:15)
[2023-07-16] MEDS: Gabapentin 300 MG Capsule PO (16:17)
[2023-07-16] MEDS: Ibuprofen 600 MG Tablet PO (16:17)
[2023-07-16 18:23] VITALS: BP 135/69; PULSE 111; RESP 18; O2SAT 97
[2023-07-16 22:00] VITALS: BP 138/68; PULSE 88; RESP 18; TEMP 36.6; O2SAT 100
[2023-07-16] MEDS: traZODone 100 MG Tablet PO (22:15)
[2023-07-16] MEDS: Atorvastatin Calcium 40 MG Tablet PO (22:15)
[2023-07-16] MEDS: Escitalopram Oxalate 20 MG Tablet PO (22:15)
[2023-07-17 03:45] VITALS: BP 148/78; PULSE 90; RESP 16; TEMP 36.8; O2SAT 99
[2023-07-17] MEDS: Phenobarbital 32.4 MG Tablet 64.7999999999999972 MG PO ×6 (03:57→22:26)
[2023-07-17] MEDS: buPROPion (XL) 300 MG TABLET.XL PO (07:38)
[2023-07-17] MEDS: Folic Acid 1 MG Tablet PO (07:38)
[2023-07-17 07:39] VITALS: PULSE 97
[2023-07-17] MEDS: Pantoprazole Sodium 20 MG Tablet PO (07:39)
[2023-07-17] MEDS: Folic Acid/Vitamin B Comp W-C 1 Capsule 1 CAP PO (07:39)
[2023-07-17] MEDS: Metoprolol(XL)Succ 25 MG Tablet PO (07:39)
[2023-07-17] MEDS: Thiamine Hydrochloride 100 MG Tablet PO (07:39)
[2023-07-17] MEDS: Lisinopril 20 MG Tablet PO (07:40)
[2023-07-17 08:05] VITALS: BP 131/81; PULSE 97; RESP 16; TEMP 36.5; O2SAT 98
[2023-07-17] MEDS: amLODIPine 5 MG Tablet PO (09:34)
[2023-07-17 10:01] LABS: Anion Gap 12 (5-15); BUN 17 mg/dL (7-18); BUN/Creat Ratio 13.3 RATIO (10-20); Calcium,Total 8.6 mg/dL (8.5-10.1); Chloride 101 mmol/L (98-107); Creatinine, Serum 1.28 mg/dL (0.70-1.30); EST Glomerular Filtration Rate 61 mL/min (>60); Est Glom Filt Rate - Afr Amer 74 mL/min (>60); Estimated Creatinine Clearance 56.07 ml/min; Glucose 191 mg/dL (74-106); Magnesium 1.6 mg/dL (1.6-2.6); Potassium 4.5 mmol/L (3.5-5.1); Sodium Level 133 mmol/L (136-145)
--- NOTE | 2023-07-17 10:57 | ADDICTION ---
This policy writer sales met with PT to conduct ASAM, MSE, AUDIT, DUDIT assessments and to plan for d/c. PT A+Ox4 and participated actively. All assessments completed and placed in PT's chart. Pt has a long hx of detox admit, however he has not been to [facility] in nearly 2 years. He completed treatment at the [facility] but relapsed shortly after discharge. PT plans to f/u with [facility] at [facility] for follow-up in patient treatment services on Monday afternoon or Monday morning if approved. [facility] will transport to treatment.
[2023-07-17 11:18] VITALS: BP 148/82; PULSE 98; RESP 16; TEMP 36.4; O2SAT 98
[2023-07-17 15:42] VITALS: BP 130/78; PULSE 90; RESP 16; TEMP 36.8; O2SAT 98
--- NOTE | 2023-07-17 16:55 | PN.HOSP_ITS ---
Subjective Subjective Patient seen at bedside this morning. Sitting up in bed, conversing normally. Patient has very billie appearance, appeared mildly agitated but otherwise was in no acute distress. Patient states has been tolerating the phenobarbital well, feels mildly sedated this morning. Primary concern is that he has not been able to empty his bladder well since being here, does have mild suprapubic pain at this time. States he has previous history of transient urinary retention and has known history of BPH. Denies any fevers or chills. Otherwise denies any acute concerns. Objective Data Objective Data Vital Signs: Vital Signs Temp Pulse Resp BP Pulse Ox O2 Del Method 98.2 F 90 16 130/78 H 98 Room Air 07/17/23 15:42 07/17/23 15:42 07/17/23 15:42 07/17/23 15:42 07/17/23 15:42 07/17/23 15:42 Oxygen Delivery Method Room Air Weight: 84.141 kg Body Mass Index (BMI) 29.9 Intake & Output: Intake and Output for Last 24 Hours 07/15/23 07/16/23 07/17/23 23:59 23:59 23:59 Intake Total 1000 / 1000 300 / 300 Output Total 800 / 800 Balance 1000 / 1000 -500 / -500 Lab / Micro Data 07/16/23 12:05 07/17/23 09:28 Labs: Laboratory Results - last 24 hr 07/17/23 09:28: Sodium 133 L, Potassium 4.5, Chloride 101, Carbon Dioxide 20.0 L , Anion Gap 12, BUN 17, Creatinine 1.28, Estim Creat Clear Calc 56.07, Est GFR (MDRD) Af Amer 74, Est GFR (MDRD) Non-Af 61, BUN/Creatinine Ratio 13.3, Glucose 191 H, Calcium 8.6, Magnesium 1.6 Physical Exam Const alert, oriented x3, no apparent distress and average body habitus Constitutional Narrative: Middle-age male, sitting up in bed, mildly agitated but otherwise comfortable, billie appearance, conversing normally, no acute distress. General Appearance: cooperative and comfortable HEENT normocephalic, head/scalp atraumatic, hearing grossly normal bilaterally, nasal mucous membranes and turbinates normal and moist oral mucous membranes Eyes PERRL, EOMs intact bilaterally and conjunctivae normal Neck full ROM, no lymphadenopathy and supple Lymph Lymphatic: no lymphadenopathy noted Chest inspection of chest normal Resp normal respiratory effort, normal air movement, no use of accessory muscles and clear to auscultation bilaterally Cardio regular rate, regular rhythm, no murmurs and peripheral pulses 2+ throughout GI normal to inspection, nondistended, normoactive bowel sounds, soft to palpation, non-tender and non-distended Narrative: Mild suprapubic tenderness and fullness noted. Back/Spine normal ROM Extremity normal to inspection, full ROM and no pedal edema Skin no rashes or lesions noted Neuro no focal motor deficits and no sensory deficits noted Speech: speech normal Psych mental status grossly normal Mood & Affect: anxious Assessment & Plan Assessment/Plan (1) Alcohol abuse: (2) Urinary retention: PLAN: Plan Patient is a 58-year-old male who presented to [facility] ED on 07/16/2023 for alcohol withdrawal. 1. Alcohol abuse with high risk for alcohol withdrawal ? Drinks 1/5 to 1/2 gallon of low proof vodka per day. Last drink shortly before coming to the ED. Requested treatment for alcohol withdrawal. Notably has had several hospitalizations for this issue. Initiated on phenobarbital taper with alcohol withdrawal protocol on admit, tolerating this without issue, continue. Case management following. 2. Acute urinary retention, BPH with obstructive symptoms ? Patient with difficulty emptying bladder, bladder scan showing greater than 700 cc urine on 07/17 requiring straight cath x 1. Suspect acute retention due to autonomic dysfunction in setting of alcohol withdrawal plus poor mobility, with BPH also playing a role. Lower concern for UTI at this time. Bladder scans every 8 hours for now. Continue home Flomax. UA ordered. Chronic medical conditions: ? Hypertension/hyperlipidemia: Continue home amlodipine, lisinopril, Toprol. Continue home statin. ? Depression: Continue home escitalopram, bupropion, trazodone at night. ? Type 2 diabetes mellitus: On home metformin 1000 mg twice daily. Sliding scale insulin while inpatient. DVT prophylaxis: Low risk, ambulate CODE STATUS: Full code, unverified Expected disposition: Home, 1 to 2 days Total clinical time spent by myself addressing the patient's medical issues, reviewing all the data, and collaborating with patient's care team: 25 minutes. Charges/Coding Visit Charges Inpatient E&M: 71548 [facility] Hosp L1
[2023-07-17] MEDS: Tamsulosin HCl 0.4 MG Capsule 0.800000000000000044 MG PO (17:51)
[2023-07-17] MEDS: Escitalopram Oxalate 20 MG Tablet PO (22:26)
[2023-07-17] MEDS: traZODone 100 MG Tablet PO (22:26)
[2023-07-17] MEDS: Atorvastatin Calcium 40 MG Tablet PO (22:26)
[2023-07-17 22:28] VITALS: BP 141/92; PULSE 94; RESP 16; TEMP 36.7; O2SAT 96
[2023-07-17 22:49] LABS: Bedside Glucose 159 mg/dL (74-106)
[2023-07-18 02:20] VITALS: BP 123/87; PULSE 93; RESP 16; TEMP 36.6; O2SAT 96
[2023-07-18] MEDS: Phenobarbital 32.4 MG Tablet 64.7999999999999972 MG PO ×6 (02:22→22:28)
[2023-07-18] MEDS: Ibuprofen 600 MG Tablet PO (03:22)
[2023-07-18 03:28] LABS: Bacteria 0 SEEN /hpf (None Seen); Mucous, Urine 0 SEEN /hpf (<or=2+); Red Blood Cells-Urine 0 SEEN /hpf (0-5); Squamous Epithelial Cells - UA 0 SEEN /hpf (0-5)
[2023-07-18 03:31] LABS: Color, Urine Yellow (Yellow); Glucose, Dipstick 50 mg/dl (Normal); Ketone-Dipstick Negative (Negative); Leukocyte Esterase-Dipstick 500 /ul (Negative); Nitrite-Dipstick Negative (Negative); Occult Blood-Urine Negative /ul (Negative); Protein-Dipstick 15 mg/dl (Negative); Specific Gravity, Urine 1.015 (1.002-1.030); Urine Bilirubin Dipstick Negative (Negative); Urine Clarity Clear (Clear); Urine Urobilinogen Normal (Normal)
[2023-07-18 03:52] LABS: Amphetamine Urine VISTA NEGATIVE (<1000 ng/mL); Barbiturate Urine VISTA POSITIVE (< 200 ng/mL); Benzodiazepine Urine VISTA NEGATIVE (< 200 ng/mL); Cocaine Urine VISTA NEGATIVE (< 300 ng/mL); Ecstacy Urine VISTA POSITIVE (< 500 ng/mL); Methadone Urine VISTA NEGATIVE (< 300 ng/mL); PCP Urine VISTA NEGATIVE (< 25 ng/mL); THC Urine VISTA NEGATIVE (< 50 ng/mL); Vista UDS pH Range 5
[2023-07-18 03:53] LABS: White Blood Cells 10-25 SEEN /hpf (0-5)
[2023-07-18 03:57] LABS: Transitional Epithelial - Ur 0-5 SEEN /hpf (0-5)
[2023-07-18 06:13] LABS: Bedside Glucose 175 mg/dL (74-106)
[2023-07-18 10:13] VITALS: BP 142/75; PULSE 87; RESP 18; TEMP 36.4; O2SAT 100
[2023-07-18 10:22] VITALS: PULSE 87
[2023-07-18] MEDS: Metoprolol(XL)Succ 25 MG Tablet PO (10:22)
[2023-07-18] MEDS: Folic Acid/Vitamin B Comp W-C 1 Capsule 1 CAP PO (10:22)
[2023-07-18] MEDS: Folic Acid 1 MG Tablet PO (10:22)
[2023-07-18] MEDS: Thiamine Hydrochloride 100 MG Tablet PO (10:22)
[2023-07-18] MEDS: amLODIPine 5 MG Tablet PO (10:22)
[2023-07-18] MEDS: buPROPion (XL) 300 MG TABLET.XL PO (10:22)
[2023-07-18] MEDS: Pantoprazole Sodium 20 MG Tablet PO (10:22)
[2023-07-18] MEDS: Lisinopril 20 MG Tablet PO (10:23)
[2023-07-18] MEDS: Insulin Lispro 100 UNIT/ML INSULN.PEN SC ×3 (11:41→22:27)
[2023-07-18 12:17] LABS: Bedside Glucose 195 mg/dL (74-106)
[2023-07-18 14:34] VITALS: BP 159/85; PULSE 84; RESP 18; TEMP 36.6; O2SAT 98
--- NOTE | 2023-07-18 15:59 | PN.HOSP_ITS ---
Reason for Visit Reason for Visit: Diagnoses Alcohol abuse, uncomplicated (07/16/23) Retention of urine, unspecified (07/16/23) Subjective Subjective Patient seen at bedside this morning. Patient was more groggy this morning than yesterday. Was able to answer questions appropriately but reported feeling very tired and sleepy. Had not tried getting out of bed yet when I saw him. Still has not been able to urinate on his own, denies any suprapubic pain at this time. No other acute concerns this morning. Objective Data Objective Data Vital Signs: Vital Signs Temp Pulse Resp BP Pulse Ox O2 Del Method 97.9 F 84 18 159/85 H 98 Room Air 07/18/23 14:34 07/18/23 14:34 07/18/23 14:34 07/18/23 14:34 07/18/23 14:34 07/18/23 14:34 Oxygen Delivery Method Room Air Weight: 84.141 kg Body Mass Index (BMI) 29.9 Intake & Output: Intake and Output for Last 24 Hours 07/16/23 07/17/23 07/18/23 23:59 23:59 23:59 Intake Total 1000 / 1000 800 / 800 240 / 240 Output Total 800 / 800 1000 / 1000 Balance 1000 / 1000 0 / 0 -760 / -760 Lab / Micro Data 07/16/23 12:05 07/17/23 09:28 Labs: Laboratory Results - last 24 hr 07/16/23 03:15: Urine Opiates Screen NEGATIVE, Urine Methadone Screen NEGATIVE, Ur Barbiturates Screen POSITIVE H, Ur Phencyclidine Scrn NEGATIVE, Ur Amphetamines Screen NEGATIVE, MDMA (Ecstasy) Screen POSITIVE H, U Benzodiazepines Scrn NEGATIVE, Urine Cocaine Screen NEGATIVE, U Cannabinoids Screen NEGATIVE, Ur Drug Screen Comment 07/17/23 22:24: POC Glucose 159 H 07/18/23 03:15: Urine Color Yellow, Urine Clarity Clear, Urine pH 6.0, Ur Specific Sebastian 1.015, Urine Protein 15 H, Urine Glucose (UA) 50 H, Urine Ketones Negative, Urine Occult Blood Negative, Urine Nitrite Negative, Urine Bilirubin Negative, Urine Urobilinogen Normal, Ur Leukocyte Esterase 500 H, U rine RBC 0 SEEN, Urine WBC 10-25 SEEN, Ur Squamous Epith Cells 0 SEEN, Ur Transition Epith Cell 0-5 SEEN, Urine Bacteria 0 SEEN, Urine Mucus 0 SEEN 07/18/23 05:52: POC Glucose 175 H 07/18/23 11:37: POC Glucose 195 H Physical Exam Const alert, oriented x3, no apparent distress and average body habitus Constitutional Narrative: Middle-age male, sitting up in bed, more sedated this morning, billie appearance, otherwise conversing normally, no acute distress. General Appearance: cooperative and comfortable HEENT normocephalic, head/scalp atraumatic, hearing grossly normal bilaterally, nasal mucous membranes and turbinates normal and moist oral mucous membranes Eyes PERRL, EOMs intact bilaterally and conjunctivae normal Neck full ROM, no lymphadenopathy and supple Lymph Lymphatic: no lymphadenopathy noted Chest inspection of chest normal Resp normal respiratory effort, normal air movement, no use of accessory muscles and clear to auscultation bilaterally Cardio regular rate, regular rhythm, no murmurs and peripheral pulses 2+ throughout GI normal to inspection, nondistended, normoactive bowel sounds, soft to palpation, non-tender and non-distended Narrative: Mild suprapubic fullness noted, no suprapubic tenderness. Back/Spine normal ROM Extremity normal to inspection, full ROM and no pedal edema Skin no rashes or lesions noted Neuro no focal motor deficits and no sensory deficits noted Speech: speech normal Psych mental status grossly normal Assessment & Plan Assessment/Plan (1) Alcohol abuse: (2) Urinary retention: PLAN: Plan Patient is a 58-year-old male who presented to [facility] ED on 07/16/2023 for alcohol withdrawal. 1. Alcohol abuse with high risk for alcohol withdrawal ? Drinks 1/5 to 1/2 gallon of low proof vodka per day. Last drink shortly before coming to the ED. Requested treatment for alcohol withdrawal. Notably has had several hospitalizations for this issue. Initiated on phenobarbital taper with alcohol withdrawal protocol on admit, tolerating this without issue, will plan to complete taper on 07/19. Case management following. Hoping for discharge directly to inpatient rehab but this will depend on his urinary retention as noted below. 2. Acute urinary retention, BPH with obstructive symptoms ? Patient with difficulty emptying bladder, bladder scan showing greater than 700 cc urine on 07/17 requiring straight cath x 1. Suspect acute retention due to autonomic dysfunction in setting of alcohol withdrawal plus poor mobility, with BPH also playing a role. UA showed 500 leukocyte esterase but negative nitrates and 0 bacteria, no other infectious symptoms, low concern for infection. Will continue to BladderScan intermittently for now and encourage patient to void on his own. Hopeful that patient will show improvement after completing phenobarbital taper, will monitor closely. Chronic medical conditions: ? Hypertension/hyperlipidemia: Continue home amlodipine, lisinopril, Toprol. Continue home statin. ? Depression: Continue home escitalopram, bupropion, trazodone at night. ? Type 2 diabetes mellitus: On home metformin 1000 mg twice daily. Sliding scale insulin while inpatient. DVT prophylaxis: Low risk, ambulate CODE STATUS: Full code, unverified Expected disposition: Home, 1 to 2 days Total clinical time spent by myself addressing the patient's medical issues, reviewing all the data, and collaborating with patient's care team: 25 minutes. Charges/Coding Visit Charges Inpatient E&M: 51234 Subs Hosp L2
[2023-07-18 17:07] LABS: Bedside Glucose 165 mg/dL (74-106)
[2023-07-18] MEDS: Tamsulosin HCl 0.4 MG Capsule 0.800000000000000044 MG PO (17:54)
[2023-07-18 22:09] VITALS: BP 145/85; PULSE 88; RESP 18; TEMP 36.9; O2SAT 97
[2023-07-18] MEDS: traZODone 100 MG Tablet PO (22:27)
[2023-07-18] MEDS: Atorvastatin Calcium 40 MG Tablet PO (22:28)
[2023-07-18] MEDS: Escitalopram Oxalate 20 MG Tablet PO (22:28)
[2023-07-18] MEDS: hydrOXYzine PAM 25 MG Capsule 50 MG PO (22:28)
[2023-07-18 22:49] LABS: Bedside Glucose 244 mg/dL (74-106)
[2023-07-19] MEDS: Ibuprofen 600 MG Tablet PO ×2 (01:50→14:31)
[2023-07-19 05:41] VITALS: BP 141/83; PULSE 86; RESP 16; TEMP 36.7; O2SAT 96
[2023-07-19] MEDS: Insulin Lispro 100 UNIT/ML INSULN.PEN SC ×4 (05:44→22:40)
[2023-07-19] MEDS: Phenobarbital 32.4 MG Tablet 64.7999999999999972 MG PO (05:44)
[2023-07-19 06:58] LABS: Bedside Glucose 158 mg/dL (74-106)
[2023-07-19 08:38] VITALS: BP 124/77; PULSE 81; RESP 16; TEMP 36.6; O2SAT 98
[2023-07-19] MEDS: Folic Acid 1 MG Tablet PO (08:45)
[2023-07-19] MEDS: Thiamine Hydrochloride 100 MG Tablet PO (08:45)
[2023-07-19] MEDS: Pantoprazole Sodium 20 MG Tablet PO (10:32)
[2023-07-19] MEDS: Lisinopril 20 MG Tablet PO (10:32)
[2023-07-19] MEDS: amLODIPine 5 MG Tablet PO (10:32)
[2023-07-19] MEDS: Folic Acid/Vitamin B Comp W-C 1 Capsule 1 CAP PO (10:32)
[2023-07-19 10:33] VITALS: PULSE 81
[2023-07-19] MEDS: buPROPion (XL) 300 MG TABLET.XL PO (10:33)
[2023-07-19] MEDS: Metoprolol(XL)Succ 25 MG Tablet PO (10:33)
[2023-07-19 12:16] LABS: Bedside Glucose 190 mg/dL (74-106)
[2023-07-19] MEDS: Polyethylene Glycol 3350 17 GM PACKET PO (14:27)
[2023-07-19] MEDS: Senna Tablet 2 TABLET PO ×2 (14:27→22:41)
[2023-07-19 14:36] VITALS: BP 132/81; PULSE 83; RESP 16; TEMP 36.6; O2SAT 98
--- NOTE | 2023-07-19 15:32 | PCM.PN.HOSP ---
Reason for Visit Reason for Visit: Diagnoses Alcohol abuse, uncomplicated (07/16/23) Retention of urine, unspecified (07/16/23) Subjective Subjective Patient seen at bedside this morning. Sitting up comfortably in bed, no acute distress. Patient continues to appear fatigued this morning but less somnolent than yesterday. Patient states he was able to have a small amount of urination on 2 occasions overnight, but still does not feel like he is fully emptying his bladder. Also notes that he has not had a bowel movement yet since admission, started to feel bloated. Has had intermittent issues with constipation in the past. Patient denies any withdrawal symptoms. Denies any other acute pain or discomfort. No other acute concerns. Objective Data Objective Data Vital Signs: Vital Signs Temp Pulse Resp BP Pulse Ox O2 Del Method 97.8 F 83 16 132/81 H 98 Room Air 07/19/23 14:36 07/19/23 14:36 07/19/23 14:36 07/19/23 14:36 07/19/23 14:36 07/19/23 14:36 Oxygen Delivery Method Room Air Weight: 84.141 kg Body Mass Index (BMI) 29.9 Intake & Output: Intake and Output for Last 24 Hours 07/17/23 07/18/23 07/19/23 23:59 23:59 23:59 Intake Total 800 / 800 540 / 1340 800 / 800 Output Total 800 / 800 2200 / 2800 2200 / 2200 Balance 0 / 0 -1660 / -1460 -1400 / -1400 Lab / Micro Data 07/16/23 12:05 07/17/23 09:28 Labs: Laboratory Results - last 24 hr 07/18/23 16:26: POC Glucose 165 H 07/18/23 22:26: POC Glucose 244 H 07/19/23 05:43: POC Glucose 158 H 07/19/23 11:58: POC Glucose 190 H Physical Exam Const alert, oriented x3, no apparent distress and average body habitus Constitutional Narrative: Middle-age male, sitting up in bed, fatigued but more alert this morning, billie appearance, otherwise conversing normally, no acute distress. General Appearance: cooperative and comfortable HEENT normocephalic, head/scalp atraumatic, hearing grossly normal bilaterally, nasal mucous membranes and turbinates normal and moist oral mucous membranes Eyes PERRL, EOMs intact bilaterally and conjunctivae normal Neck full ROM, no lymphadenopathy and supple Lymph Lymphatic: no lymphadenopathy noted Chest inspection of chest normal Resp normal respiratory effort, normal air movement, no use of accessory muscles and clear to auscultation bilaterally Cardio regular rate, regular rhythm, no murmurs and peripheral pulses 2+ throughout GI GI Narrative: Mildly distended, nontender, soft to palpation. Narrative: Mild suprapubic fullness noted, no suprapubic tenderness. Back/Spine normal ROM Extremity normal to inspection, full ROM and no pedal edema Skin no rashes or lesions noted Neuro no focal motor deficits and no sensory deficits noted Speech: speech normal Psych mental status grossly normal Assessment & Plan Assessment/Plan (1) Alcohol abuse: (2) Urinary retention: PLAN: Plan Patient is a 58-year-old male who presented to [facility] ED on 07/16/2023 for alcohol withdrawal. 1. Alcohol abuse with high risk for alcohol withdrawal ? Drinks 1/5 to 1/2 gallon of low proof vodka per day. Last drink shortly before coming to the ED. Requested treatment for alcohol withdrawal. Notably has had several hospitalizations for this issue. Initiated on phenobarbital taper with alcohol withdrawal protocol on admit, tolerating this without issue, completed taper on morning of 07/19. Case management following. Hoping for discharge directly to inpatient rehab but this will depend on his urinary retention as noted below. 2. Acute urinary retention, BPH with obstructive symptoms ? Patient with difficulty emptying bladder, bladder scan showing greater than 700 cc urine on 07/17 requiring straight cath x 1. Suspect acute retention due to autonomic dysfunction in setting of alcohol withdrawal plus poor mobility, with BPH also playing a role. UA showed 500 leukocyte esterase but negative nitrates and 0 bacteria, no other infectious symptoms, low concern for infection. Will continue to BladderScan intermittently for now and encourage patient to void on his own. Hopeful that patient will show improvement after completing phenobarbital taper, will monitor closely. 3. Constipation ? Patient reports intermittent issues with constipation in the past. No bowel movement since admission. Mildly distended on exam on 07/19, but otherwise soft and nontender to palpation. Will start senna 2 tablets twice daily and MiraLAX daily. Monitor for bowel movements. Chronic medical conditions: ? Hypertension/hyperlipidemia: Continue home amlodipine, lisinopril, Toprol. Continue home statin. ? Depression: Continue home escitalopram, bupropion, trazodone at night. ? Type 2 diabetes mellitus: On home metformin 1000 mg twice daily. Sliding scale insulin while inpatient. DVT prophylaxis: Low risk, ambulate CODE STATUS: Full code, unverified Expected disposition: Home versus inpatient alcohol treatment facility, 1 to 2 days Total clinical time spent by myself addressing the patient's medical issues, reviewing all the data, and collaborating with patient's care team: 25 minutes. Charges/Coding Visit Charges Inpatient E&M: 44069 Subs Hosp L1
[2023-07-19] MEDS: Tamsulosin HCl 0.4 MG Capsule 0.800000000000000044 MG PO (16:28)
[2023-07-19 17:05] LABS: Bedside Glucose 193 mg/dL (74-106)
[2023-07-19 22:36] VITALS: BP 147/83; PULSE 78; RESP 18; TEMP 36.9; O2SAT 98
[2023-07-19] MEDS: traZODone 100 MG Tablet PO (22:40)
[2023-07-19] MEDS: Escitalopram Oxalate 20 MG Tablet PO (22:41)
[2023-07-19] MEDS: Atorvastatin Calcium 40 MG Tablet PO (22:41)
[2023-07-19] MEDS: Acetaminophen 500 MG Tablet PO (22:41)
[2023-07-19 23:10] LABS: Bedside Glucose 179 mg/dL (74-106)
[2023-07-20 06:05] VITALS: BP 108/55; PULSE 68; RESP 18; TEMP 36.4; O2SAT 97
[2023-07-20] MEDS: Insulin Lispro 100 UNIT/ML INSULN.PEN SC (06:08)
[2023-07-20 06:27] LABS: Bedside Glucose 174 mg/dL (74-106)
[2023-07-20 08:45] VITALS: BP 116/98; PULSE 71; RESP 16; TEMP 36.6; O2SAT 94
[2023-07-20] MEDS: Thiamine Hydrochloride 100 MG Tablet PO (08:51)
[2023-07-20] MEDS: Folic Acid 1 MG Tablet PO (08:51)
--- NOTE | 2023-07-20 10:03 | DCINST_ITS ---
Discharge Instructions Diet Discharge Diet: No restrictions Activity Discharge Activity: No Restrictions Return to work on:: 07/24/23 Weight Bearing Status: Full weight bearing Follow Up Care Test Results: Test results from this visit will be discussed in further detail at your follow- up appointment, if applicable. Discharge Plan Admission Admit Date/Time: 07/16/23 13:02 Primary Reason for Your Visit: alcohol detox Attending Provider: Iain Lee Primary Care Provider: Katie Serrano Consulting Providers: Adolph Lambert Discharge Orders/Prescriptions Prescriptions: Continued amlodipine 5 MG tablet 10 mg PO DAILY Patient Comments: blood pressure metoprolol succinate 25 MG tablet extended release 24 hr 25 mg PO DAILY Patient Comments: blood pressure trazodone 100 MG tablet 100 mg PO QHS PRN (Reason: sleep/ depression) bupropion HCl 300 MG tablet extended release 24 hr 300 mg PO DAILY folic acid 1 mg Tablet 1 mg PO DAILY escitalopram oxalate 10 mg Tablet 20 mg PO QHS pantoprazole 20 mg tablet,delayed release (DR/EC) 40 mg PO DAILY Virt-Caps 1 mg capsule 1 cap PO DAILY lisinopril 40 mg tablet 40 mg PO DAILY metformin 1,000 mg tablet 1,000 mg PO BID risperidone 1 mg tablet 1 mg PO QHS tamsulosin 0.4 mg capsule 0.4 mg PO DAILY Referrals / Follow Up: Katie Serrano DO [Primary Care Provider] - Disposition Disposition (needs filled in before D/C Order can be placed): Home, Self Care
--- NOTE | 2023-07-20 10:05 | PCM.DC.SUM ---
Providers Date of Admission: 07/16/23 Date of Discharge: 07/20/23 Primary Care Physician: Dr. Katie Serrano DO Reason For Visit: ALCOHOL WITHDRAWL Diagnosis Discharge Diagnosis (1) Alcohol abuse: Status: Acute Code(s): F10.10 - Alcohol abuse, uncomplicated (2) Urinary retention: Status: Acute Code(s): R33.9 - Retention of urine, unspecified Medications at Discharge Home Medications amlodipine 5 mg tablet 10 mg PO DAILY BP 10/15/16 metoprolol succinate 25 mg tablet,extended release 24 hr 25 mg PO DAILY BP 10/15/16 bupropion HCl 300 mg 24 hr tablet, extended release 300 mg PO DAILY depression 07/12/18 trazodone 100 mg tablet 100 mg PO QHS PRN sleep/ depression 07/12/18 escitalopram oxalate 10 mg tablet 20 mg PO QHS depression 03/01/21 folic acid 1 mg tablet 1 mg PO DAILY supplement 03/01/21 pantoprazole 20 mg tablet,delayed release 40 mg PO DAILY GERD 04/30/21 vitamin B complex and vitamin C no.20-folic acid 1 mg capsule (Virt-Caps) 1 cap PO DAILY SUPPLEMENT 04/30/21 lisinopril 40 mg tablet 40 mg PO DAILY blood pressure 07/16/23 metformin 1,000 mg tablet 1,000 mg PO BID glucose 07/16/23 risperidone 1 mg tablet 1 mg PO QHS sleep 07/16/23 tamsulosin 0.4 mg capsule 0.4 mg PO DAILY prostate 07/16/23 Hospital Course Operations None Procedures None Summary of Care Provided Minutes Spent on Discharge: 25 Hospital Course: Patient is a 58-year-old male who presented to [facility] ED on 07/16/2023 for alcohol withdrawal. Hospital course as noted below. Discharged to inpatient treatment facility for alcohol use disorder in stable condition on 07/20. 1. Alcohol abuse with high risk for alcohol withdrawal Drinks 1/5 to 1/2 gallon of low proof vodka per day. Last drink shortly before coming to the ED. Requested treatment for alcohol withdrawal. Notably has had several hospitalizations for this issue. Initiated on phenobarbital taper with alcohol withdrawal protocol on admit, had mild to moderate sedation on taper but otherwise tolerated without issue, completed taper on morning of 07/19. ? Case management followed. Discharged directly to inpatient treatment facility on discharge. 2. Acute urinary retention, resolved; BPH with obstructive symptoms Patient with difficulty emptying bladder on day 2 of admission, bladder scan showing greater than 700 cc urine requiring straight cath x 1. Suspect acute retention was due to autonomic dysfunction in setting of alcohol withdrawal plus poor mobility, with BPH also playing a role. UA showed 500 leukocyte esterase but negative nitrates and 0 bacteria, no other infectious symptoms, low concern for infection. ? Patient had resolution of urinary retention by 07/20 after completing phenobarbital taper. Continue home Flomax on discharge. 3. Constipation, improving ? Patient reported mild constipation during admission, likely secondary to poor mobility and medications for alcohol withdrawal. Started on bowel regimen with senna and MiraLAX on 07/19 with improvement. Continue as needed laxatives on discharge. Chronic medical conditions: ? Hypertension/hyperlipidemia: Continue home amlodipine, lisinopril, Toprol. Continue home statin. ? Depression: Continue home escitalopram, bupropion, trazodone at night. ? Type 2 diabetes mellitus: Sliding scale insulin while inpatient. Continue home metformin on discharge. Total clinical time spent by myself addressing the patient's discharge needs: 25 minutes. Physical Exam Const alert, oriented x3, no apparent distress and average body habitus Constitutional Narrative: Middle-age male, sitting up in bed, fatigued but more alert this morning, billie appearance, otherwise conversing normally, no acute distress. General Appearance: cooperative and comfortable HEENT normocephalic, head/scalp atraumatic, hearing grossly normal bilaterally, nasal mucous membranes and turbinates normal and moist oral mucous membranes Eyes PERRL, EOMs intact bilaterally and conjunctivae normal Neck full ROM, no lymphadenopathy and supple Lymph Lymphatic: no lymphadenopathy noted Chest inspection of chest normal Resp normal respiratory effort, normal air movement, no use of accessory muscles and clear to auscultation bilaterally Cardio regular rate, regular rhythm, no murmurs and peripheral pulses 2+ throughout GI normal to inspection, nondistended, normoactive bowel sounds, soft to palpation, non-tender and non-distended Back/Spine normal ROM Extremity normal to inspection, full ROM and no pedal edema Skin no rashes or lesions noted Neuro no focal motor deficits and no sensory deficits noted Speech: speech normal Psych mental status grossly normal Weight / BMI Weight Weight: 84.141 kg Body Mass Index (BMI) 29.9 ABG / Lab / Microbiology Data 07/16/23 12:05 07/17/23 09:28 Laboratory: Laboratory Results - last 24 hr 07/19/23 11:58: POC Glucose 190 H 07/19/23 16:26: POC Glucose 193 H 07/19/23 22:39: POC Glucose 179 H 07/20/23 06:07: POC Glucose 174 H D/C Instructions Discharge Diet: No restrictions Return to work on: 07/24/23 Weight Bearing Status: Full weight bearing Meaningful Use Info Meaningful Use Diagnoses (Choose all that apply): None applicable Discharge Plan Admission Admit Date/Time: 07/16/23 13:02 Primary Reason for Your Visit: alcohol detox Attending Provider: Iain Lee Primary Care Provider: Katie Serrano Consulting Providers: Adolph Lambert Discharge Orders/Prescriptions Prescriptions: Continued amlodipine 5 MG tablet 10 mg PO DAILY Patient Comments: blood pressure metoprolol succinate 25 MG tablet extended release 24 hr 25 mg PO DAILY Patient Comments: blood pressure trazodone 100 MG tablet 100 mg PO QHS PRN (Reason: sleep/ depression) bupropion HCl 300 MG tablet extended release 24 hr 300 mg PO DAILY folic acid 1 mg Tablet 1 mg PO DAILY escitalopram oxalate 10 mg Tablet 20 mg PO QHS pantoprazole 20 mg tablet,delayed release (DR/EC) 40 mg PO DAILY Virt-Caps 1 mg capsule 1 cap PO DAILY lisinopril 40 mg tablet 40 mg PO DAILY metformin 1,000 mg tablet 1,000 mg PO BID risperidone 1 mg tablet 1 mg PO QHS tamsulosin 0.4 mg capsule 0.4 mg PO DAILY Referrals / Follow Up: Katie Serrano DO [Primary Care Provider] - Disposition Disposition (needs filled in before D/C Order can be placed): Home, Self Care Charges/Coding Visit Charges Inpatient E&M: 71901 Disch Hosp
[2023-07-20 10:27] VITALS: PULSE 71
[2023-07-20] MEDS: buPROPion (XL) 300 MG TABLET.XL PO (10:27)
[2023-07-20] MEDS: amLODIPine 5 MG Tablet PO (10:27)
[2023-07-20] MEDS: Senna Tablet 2 TABLET PO (10:27)
[2023-07-20] MEDS: Metoprolol(XL)Succ 25 MG Tablet PO (10:27)
[2023-07-20] MEDS: Pantoprazole Sodium 20 MG Tablet PO (10:27)
[2023-07-20] MEDS: Lisinopril 20 MG Tablet PO (10:28)
--- NOTE | 2023-07-20 11:22 | PHA.DC.MR.R ---
Pharmacy [place] Med Reconciliation Pharmacy Service has performed discharge medication reconciliation for this patient. The patient's discharge medication list was reviewed for discrepancies and discrepancies were resolved. Medications at Discharge Home Medications amlodipine 5 mg tablet 10 mg PO DAILY BP 10/15/16 metoprolol succinate 25 mg tablet,extended release 24 hr 25 mg PO DAILY BP 10/15/16 bupropion HCl 300 mg 24 hr tablet, extended release 300 mg PO DAILY depression 07/12/18 trazodone 100 mg tablet 100 mg PO QHS PRN sleep/ depression 07/12/18 escitalopram oxalate 10 mg tablet 20 mg PO QHS depression 03/01/21 folic acid 1 mg tablet 1 mg PO DAILY supplement 03/01/21 pantoprazole 20 mg tablet,delayed release 40 mg PO DAILY GERD 04/30/21 vitamin B complex and vitamin C no.20-folic acid 1 mg capsule (Virt-Caps) 1 cap PO DAILY SUPPLEMENT 04/30/21 lisinopril 40 mg tablet 40 mg PO DAILY blood pressure 07/16/23 metformin 1,000 mg tablet 1,000 mg PO BID glucose 07/16/23 risperidone 1 mg tablet 1 mg PO QHS sleep 07/16/23 tamsulosin 0.4 mg capsule 0.4 mg PO DAILY prostate 07/16/23
== END 2023-07-20 10:35 | disposition home or self-care (01) | DRG 775 ==
LOC: ED 12:05 → MS3 14:15
PROVIDERS: Physician Assistant; Emergency Provider Emergency Medicine; PCP Family Medicine; Visit Provider Hospitalist
DX: F10.239 Alcohol dependence with withdrawal, unspecified (principal); E11.9 Type 2 diabetes mellitus without complications; I10 Essential (primary) hypertension; F32.A Depression, unspecified; F41.9 Anxiety disorder, unspecified; G47.33 Obstructive sleep apnea (adult) (pediatric); K59.00 Constipation, unspecified; R33.9 Retention of urine, unspecified; N40.1 Benign prostatic hyperplasia with lower urinary tract symptoms; Z79.84 Long term (current) use of oral hypoglycemic drugs; Z79.899 Other long term (current) drug therapy; Y90.8 Blood alcohol level of 240 mg/100 ml or more
CPT/HCPCS: 36415; 80048; 80053; 80307; 80320; 81001; 82962; 83735; 85025; 99284; J7030; A4216; G0480

== ENCOUNTER → 2023-10-27 | Outpatient (CLI) | payer MEDICAID, SELFPAY ==
[2023-10-27 12:30] LABS: Hemoglobin A1c 6.9 % (3.8-5.6)
[2023-10-27 12:39] LABS: Cholesterol 213 mg/dL (200); High Density Lipoprotein 35 mg/dL; Triglycerides 461 mg/dL
[2023-11-03 09:09] LABS: Testosterone, % Free 2.74 % (1.50-4.20); Testosterone, Free 7.29 ng/dL (5.00-21.00); Testosterone, Total 266 ng/dL (264-916)
== END | disposition home or self-care (01) ==
LOC: BIMLAB 09:20
PROVIDERS: PCP Internal Medicine; Visit Provider Internal Medicine
DX: E11.9 Type 2 diabetes mellitus without complications (principal); E78.2 Mixed hyperlipidemia
CPT/HCPCS: 36415; 80061; 83036; 84402; 84403

== ENCOUNTER → 2023-11-22 | Outpatient (CLI) | payer MEDICAID, SELFPAY ==
[2023-11-22 13:24] LABS: AST(SGOT) 23 U/L (15-37); Alanine Aminotransfer ALT/SGPT 33 U/L (16-61); Albumin, Serum 4.1 g/dL (3.2-5.0); Alkaline Phosphatase 96 U/L (45-117); Bilirubin, Direct 0.09 mg/dL (0.00-0.30); Globulin 3.7 g/dL (2.2-4.2); Protein, Total 7.8 g/dL (6.4-8.2)
== END | disposition home or self-care (01) ==
PROVIDERS: PCP Internal Medicine; Referring Provider Student in an Organized Health Care Education/Training Program; Visit Provider Student in an Organized Health Care Education/Training Program
DX: B35.1 Tinea unguium (principal)
CPT/HCPCS: 36415; 80076

== ENCOUNTER 2023-12-06 12:42 | Day surgery (SDC) | payer MEDICAID, SELFPAY ==
[2023-12-06 13:24] VITALS: BP 131/89; PULSE 85; RESP 16; TEMP 37.1; O2SAT 96; BMI 31.2
[2023-12-06] MEDS: Lactated Ringers 1,000 ML 15 ML IV (13:45)
--- NOTE | 2023-12-06 13:52 | H&P.OPEN ---
HPI - General HPI Narrative CHERELLE STEEN, is a 58 M who presents for screening colonoscopy. His last colonoscopy was 5 years ago. He is gets colonoscopies every 5 years due to positive BRCA gene. He denies any family history of colon cancer or blood in his stool or abdominal pain. [facility] Medical History (Updated 11/29/23 @ 14:08 by Katie Alvarez) Wears glasses Alcohol use Prostate disease Fatty liver High cholesterol History of IBS History of echocardiogram History of stress test Cardiology follow-up encounter History of heart attack Myocardial infarct BRCA gene mutation positive in male Anxiety Depression Chronic pain Cirrhosis Former smoker Hyperbilirubinemia Polysubstance dependence Leukopenia Alcohol abuse Bipolar disorder Non-smoker [place]ER[place] (obstructive sleep apnea) GERD (gastroesophageal reflux disease) Insomnia Anemia Alcoholic hepatitis Essential (primary) hypertension Hypomagnesemia Hypokalemia Acute alcoholic pancreatitis Alcohol withdrawal Home Medications ?Medication ?Instructions ?Recorded ?Last Taken ?Type bupropion HCl 300 mg 24 hr tablet, 300 mg PO DAILY depression 07/12/18 08/10/21 History extended release duloxetine 60 mg capsule,delayed 60 mg PO DAILY 10/18/23 Unknown History release risperidone 1 mg tablet 2 mg PO QHS sleep 10/18/23 Unknown History blood sugar diagnostic (OneTouch #100 ea 10/25/23 Unknown Rx Verio test strips) atorvastatin 10 mg tablet (Lipitor) 10 mg PO QHS #30 tabs 10/30/23 Unknown Rx multivitamin with iron 1 tab PO DAILY 11/10/23 Unknown History naltrexone microspheres 380 mg 380 mg IM QMONTH 11/10/23 Unknown History intramuscular suspension,extended release (Vivitrol) amlodipine 5 mg tablet 10 mg (2 x 5 mg) PO DAILY BP #90 11/29/23 Unknown Rx tabs folic acid 1 mg tablet 1 mg PO DAILY supplement #90 tabs 11/29/23 Unknown Rx lisinopril 40 mg tablet 40 mg PO DAILY blood pressure #90 11/29/23 Unknown Rx tabs magnesium 200 mg tablet 200 mg PO DAILY #90 tabs 11/29/23 Unknown Rx metoprolol succinate 50 mg 50 mg PO DAILY BP #90 tabs 11/29/23 Unknown Rx tablet,extended release 24 hr plecanatide 3 mg tablet (Trulance) 3 mg PO DAILY #90 tabs 11/29/23 Unknown Rx tamsulosin 0.4 mg capsule 0.4 mg PO BID prostate #180 caps 11/29/23 Unknown Rx terbinafine HCl 1 % topical cream 1 applic topical DAILY 11/29/23 Unknown History (Antifungal (terbinafine)) pantoprazole 40 mg tablet,delayed 40 mg PO DAILY GERD #90 tabs 12/02/23 Unknown Rx release dulaglutide 0.75 mg/0.5 mL 0.75 mg (0.5 mL) subcut QWEEK #2 mL 12/05/23 Unknown Rx subcutaneous pen injector (Trulicity) Allergy/AdvReac Type Severity Reaction Status Date / Time No Known Allergies Allergy Verified 12/06/23 13:23 Family History Mother Cancer ovarian, skin Father PD (Parkinson's disease) Alcoholism Grandfather PD (Parkinson's disease) Alcoholism Hypertension Heart disease Grandmother Diabetes Aunt Diabetes Uncle Diabetes Sister Breast cancer BRCA Surgical History Hx of colonoscopy S/P hip replacement Social History adopted: No household members: other details: transitional home through [facility] current occupational status: employed current occupation: [employer] pets and animals: No Smoking Status: Current some day smoker tobacco type: cigars how long ago did patient quit smokin-4 cigars per year alcohol intake: former year quit: 2023 details: Sober since 07/15/23 substance use type: former substance user Date of last use: 09/2021, marijuana, crack/cocaine and hallucinogens caffeine: Yes (4) Type: coffee frequency: 1-2 times per week do you feel safe at home: Yes Past Medical/Surgical History Planned Operation Planned Operative Procedure(s): CSCOPE Previous Hospitalizations/Surgeries HX Hospitalizations: Yes (CARDIAC ARREST 05/2023, DETOX [facility] 07/2023) Any Problems With Anesthesia: No You/Your Family Experience Fever (Hyperthermia) With Anes: No Cholinesterase deficiency: No Cardiovascular Hx Chest Pain within Last 2 months: No Hx of Irregular Heartbeat and/or Afib: No Hx Heart Attack: No Hx Congestive Heart Failure: No Hx Hypertension: Yes (CONTROLLED WITH MED) Hx Pacemaker: No Hx Cardiac Surgery/Stents/Etc.: No (stress test 2008) Hx Pain in Legs when Walking/Leg Cramps: No Respiratory Hx Chronic Obstructive Pulmonary Disease (COPD): No Hx Asthma: No Hx Emphysema: No Hx Sleep Apnea: Yes CPAP: Yes BIPAP: No Hx Respiratory Tract Infection/Cold (presently): No Result (for STOP score): Positive Hx Smoking: No Smoking Status: Current some day smoker Gastrointestinal Hx Gastrointestinal Bleed: No Hx Ulcer: No (gerd) Difficulty Chewing/Swallowing: No Hx Unplanned Weight Loss of 20#: No Neurological Hx Seizures: No (shaking) Hx Multiple Sclerosis: No Hx Parkinson's Disease: No Hx Head/Neck Injury: No Hx Headaches: No Hx Back Injury/Pain: Yes Does patient have nerve stimulator: No Blood Disorder Hx Hepatitis: No Hx Cirrhosis: No Hx Anemia: No Hx Blood Disorders: No Reproduction : No Genitourinary Hx Renal Disease: No Hx Dialysis: No Musculoskeletal Hx Arthritis: No Hx Rheumatoid Arthritis: No Endocrine Hx Diabetes: No Thyroid Disease: No Psycho/Social Hx Substance Use: No Hx Alcohol Use: Yes Hx Anxiety: Yes Hx Depression: Yes Hx Dementia: No Miscellaneous Hx Cancer: No Recent Exposure to Contagious Disease: No Allergies No Known Allergies Allergy (Verified 12/06/23 13:23) Maternal: Family History Mother Cancer ovarian, skin Father PD (Parkinson's disease) Alcoholism Grandfather PD (Parkinson's disease) Alcoholism Hypertension Heart disease Grandmother Diabetes Aunt Diabetes Uncle Diabetes Sister Breast cancer BRCA Hypertension Paternal: Family History Mother Cancer ovarian, skin Father PD (Parkinson's disease) Alcoholism Grandfather PD (Parkinson's disease) Alcoholism Hypertension Heart disease Grandmother Diabetes Aunt Diabetes Uncle Diabetes Sister Breast cancer BRCA Hypertension Sibling: Family History Mother Cancer ovarian, skin Father PD (Parkinson's disease) Alcoholism Grandfather PD (Parkinson's disease) Alcoholism Hypertension Heart disease Grandmother Diabetes Aunt Diabetes Uncle Diabetes Sister Breast cancer BRCA Hypertension Discharge Is Pt Admitted From a Alf, or a Shelter: No After D/C, Where Do you Plan to Go: Return Home Vital Signs Vital Signs Vital Signs: 12/06/23 13:24 12/06/23 13:24 Temperature 98.8 F Temperature Source Temporal Pulse Rate 85 Respiratory Rate 16 Respiratory Pattern Normal Blood Pressure 131/89 H Blood Pressure Mean 103 Blood Pressure Source Monitor Blood Pressure Position Semi-Fowlers Blood Pressure Location Left Arm Pulse Ox 96 Oxygen Delivery Method Room Air Weight Weight: 193 lb 9.054 oz Body Mass Index (BMI) 31.2 Physical Exam Const alert and oriented x3 HEENT normocephalic Eyes PERRL Resp normal respiratory effort and normal air movement Cardio regular rate and regular rhythm GI soft to palpation, non-tender and non-distended Extremity normal to inspection Assessment & Plan Assessment/Plan (1) Encounter for screening for malignant neoplasm of colon: PLAN: I explained endoscopy in detail to the patient. I explained the risks including but not limited to stroke or heart attack with anesthesia, perforation of the GI tract, bleeding, infection. I explained that any of these could necessitate further emergency surgery. The patient understands and all questions were answered sufficiently. The patient wishes to proceed with procedure. Norberto Vegas MD Pager: [facility] [address] [place] [address] [address] [place] [address] Office: Surgery Risks - Colonoscopy Risks Include but are not Limited To: Risks include but are not limited to: Bleeding, perforation requiring further surgery, inability to complete colonoscopy requiring barium enema.
[2023-12-06 14:10] LABS: Bedside Glucose 144 mg/dL (74-106)
--- NOTE | 2023-12-06 14:31 | OP.CCLET_ITS ---
12/06/2023 Dalila Pedro Md Re : Colonoscopy procedure for Enoch Mcclain Dear Mayela This procedure was performed on Wednesday, December 06, 2023. My impressions and recommendations are as follows: Impressions : - The entire examined colon is normal on direct and retroflexion views. - No specimens collected. Recommendations : - Discharge patient to home. - Resume previous diet. - Continue present medications. - Repeat colonoscopy in 5 years for surveillance. My findings are described in the full procedure note, which is enclosed. If I can be of further assistance, please feel free to contact me at Doctor phone number(s): , Work: . Sincerely, Norberto Vegas MD 12/06/2023 2:31:23 PM This report has been signed electronically.
--- NOTE | 2023-12-06 14:31 | OP.COLON_ITS ---
Patient Name: Enoch Mcclain Procedure Date: 12/06/2023 2:05 PM Date of : 1965 Age: 58 Procedure: Colonoscopy Indications: Colon cancer screening in patient at increased risk: Family history of 1st-degree relative with colon polyps Providers: Norberto Vegas MD Referring MD: Dalila Pedro Md Medicines: Propofol per Anesthesia Patient Profile: Last Colonoscopy: 5 years ago. Complications: No immediate complications. Procedure: Pre-Anesthesia Assessment: - Prior to the procedure, a History and Physical was performed, and patient medications and allergies were reviewed. The patient's tolerance of previous anesthesia was also reviewed. The risks and benefits of the procedure and the sedation options and risks were discussed with the patient. All questions were answered, and informed consent was obtained. Prior Anticoagulants: The patient has taken no anticoagulant or antiplatelet agents. After reviewing the risks and benefits, the patient was deemed in satisfactory condition to undergo the procedure. After I obtained informed consent, the scope was passed under direct vision. Throughout the procedure, the patient's blood pressure, pulse, and oxygen saturations were monitored continuously. The Colonoscope was introduced through the anus and advanced to the cecum, identified by appendiceal orifice and ileocecal valve. The colonoscopy was performed without difficulty. The patient tolerated the procedure well. The quality of the bowel preparation was adequate to identify polyps. The ileocecal valve, appendiceal orifice, and rectum were photographed. Scope In: 2:09:43 PM Scope Withdrawal Time 0 hours 7 minutes 39 seconds Scope Out: 2:25:49 PM Total Procedure Duration Time 0 hours 16 minutes 6 seconds Findings: The entire examined colon appeared normal on direct and retroflexion views. Impression: - The entire examined colon is normal on direct and retroflexion views. - No specimens collected. Recommendation: - Discharge patient to home. - Resume previous diet. - Continue present medications. - Repeat colonoscopy in 5 years for surveillance. Procedure Code(s): --- Professional --- 12133, Colonoscopy, flexible; diagnostic, including collection of specimen(s) by brushing or washing, when performed (separate procedure) Diagnosis Code(s): --- Professional --- Z83.71, Family history of colonic polyps CPT copyright 2021 [employer]. All rights reserved. The codes documented in this report are preliminary and upon tailing hand review may be revised to meet current compliance requirements. Norberto Vegas MD 12/06/2023 2:31:23 PM This report has been signed electronically. Number of Addenda: 0 Note Initiated On: 12/06/2023 2:05 PM
[2023-12-06 14:33] VITALS: BP 131/89; BP 95/68; PULSE 76; RESP 14; TEMP 36.7; O2SAT 96
[2023-12-06 14:40] VITALS: BP 108/68; BP 131/89; PULSE 75; RESP 14; O2SAT 96
[2023-12-06 14:45] VITALS: BP 111/67; BP 131/89; PULSE 78; RESP 14; O2SAT 96
[2023-12-06 14:49] VITALS: BP 110/76; BP 131/89; PULSE 80; RESP 16; TEMP 37.2; O2SAT 98
[2023-12-06 15:02] VITALS: BP 131/89
== END 2023-12-06 15:11 | disposition home or self-care (01) ==
LOC: EN 12:43 → AC 12:44
PROVIDERS: PCP Internal Medicine; Referring Provider Internal Medicine; Visit Provider Surgery
PROC: 0DJD8ZZ Inspection of Lower Intestinal Tract, Via Natural or Artificial Opening Endoscopic (ICD-10-PCS; CPT 45378; principal; 2023-12-06 13:55)
DX: Z12.11 Encounter for screening for malignant neoplasm of colon (principal); E11.9 Type 2 diabetes mellitus without complications; F17.200 Nicotine dependence, unspecified, uncomplicated; Z15.01 Genetic susceptibility to malignant neoplasm of breast; Z83.719 Family history of colon polyps, unspecified; E78.00 Pure hypercholesterolemia, unspecified; I10 Essential (primary) hypertension; K21.9 Gastro-esophageal reflux disease without esophagitis; F41.9 Anxiety disorder, unspecified; F32.A Depression, unspecified; Z79.85 Long-term (current) use of injectable non-insulin antidiabetic drugs; Z79.899 Other long term (current) drug therapy; Z87.19 Personal history of other diseases of the digestive system
CPT/HCPCS: 45378; 82962

== ENCOUNTER 2023-12-15 10:14 | Emergency (ER) | payer MEDICAID, SELFPAY ==
[2023-12-15 10:16] VITALS: BP 142/91; PULSE 93; RESP 16; TEMP 36.2; O2SAT 99; BMI 32.3
--- NOTE | 2023-12-15 10:39 | EKG12_ITS ---
Test Reason : CP Blood Pressure : / mmHG Vent. Rate : 082 BPM Atrial Rate : 082 BPM P-R Int : 160 ms QRS Dur : 088 ms QT Int : 372 ms P-R-T Axes : 048 -03 056 degrees QTc Int : 434 ms Normal sinus rhythm Normal ECG Confirmed by CHALO DUDLEY, MUMTAZ ([id number]), order editor STACY TAMEZ ([id number]) on 12/18/2023 8:33:15 AM Referred By: TL/RU Confirmed By:MUMTAZ ISABEL MD
[2023-12-15 10:41] VITALS: O2SAT 99
[2023-12-15 10:49] LABS: Absolute Lymphocyte Count 2.03 X10^3/uL (0.83-4.51); Absolute Neutrophil Count 3.9 X10^3/uL (2.0-7.7); Basophil# 0.05 X10^3/uL; Basophil% 0.7 % (0-1); Eosinophil# 0.26 X10^3/uL; Eosinophils% 3.8 % (0-5); Hematocrit 37.3 % (40-54); Hemoglobin 11.7 g/dL (13.0-16.5); Lymphocyte # 2.03 X10^3/ul (0.83-4.51); Lymphocyte % 29.8 % (19-41); Mean Corp Hgb Conc 31.4 g/dL (32-36); Mean Corpuscular Hgb 26.4 pg (27.0-32.0); Mean Corpuscular Volume 84.2 fL (80-94); Mean Platelet Vol. 10.1 fl (6.2-12.0); Monocyte# 0.58 X10^3/uL; Monocyte% 8.5 % (0-10); NRBC Flagged by Analyzer 0 % (0-5); Neutrophil # 3.86 X10^3/uL (2.7-7.7); Neutrophil % 56.8 % (47-70); Platelet Count 349 K/mm3 (150-450); RBC Distribution Width CV 13.8 % (11.6-14.6); RBC Distribution Width SD 42.4 fl (35.1-43.9); Red Blood Count 4.43 M/mm3 (4.6-6.2); White Blood Count 6.8 K/mm3 (4.4-11.0)
--- NOTE | 2023-12-15 10:52 | ED.VIS.CHEST ---
HPI History of Present Illness Chief Complaint: Chest Pain Narrative Narrative: Persistent left-sided chest pain since yesterday. He reports this started left axilla as skin sensation progressed across his chest into his scapula. Kept him up all night. Overnight states pain is deeper. Denies cough. Denies fevers. Denies history of similar. History of hypertension, diabetes, hyperlipidemia. Denies tobacco. Father with a stent in his mid 60s. He states he had a cardiac arrest this past May hospitalized at [place] for 2 weeks, there is no heart catheterizations he had stress test done. There is no discussion for any defibrillators. He follow-up with cardiology this past Monday and he has plans for what sounds like a prolonged Holter monitor along with additional stress test. He has no issues since his cardiac arrest. He states he is unclear on why the cardiac arrest. He had dental infection at that time. Prior Similar Symptoms: No CVD Risk Factors: Positive for Hypertension, Diabetes and Hypercholesterolemia; Negative for Family History 1' </=55 or Smoking [facility] Medical History Cardiac arrest Wears glasses Alcohol use Prostate disease Fatty liver High cholesterol History of IBS History of echocardiogram History of stress test Cardiology follow-up encounter History of heart attack Myocardial infarct BRCA gene mutation positive in male Anxiety Depression Chronic pain Cirrhosis Former smoker Hyperbilirubinemia Polysubstance dependence Leukopenia Alcohol abuse Bipolar disorder Non-smoker [place]ER[place] (obstructive sleep apnea) GERD (gastroesophageal reflux disease) Insomnia Anemia Alcoholic hepatitis Essential (primary) hypertension Hypomagnesemia Hypokalemia Acute alcoholic pancreatitis Alcohol withdrawal Home Medications ?Medication ?Instructions ?Recorded ?Last Taken ?Type bupropion HCl 300 mg 24 hr tablet, 300 mg PO DAILY depression 07/12/18 08/10/21 History extended release duloxetine 60 mg capsule,delayed 60 mg PO DAILY 10/18/23 Unknown History release risperidone 1 mg tablet 2 mg PO QHS sleep 10/18/23 Unknown History blood sugar diagnostic (OneTouch #100 ea 10/25/23 Unknown Rx Verio test strips) atorvastatin 10 mg tablet (Lipitor) 10 mg PO QHS #30 tabs 10/30/23 Unknown Rx multivitamin with iron 1 tab PO DAILY 11/10/23 Unknown History naltrexone microspheres 380 mg 380 mg IM QMONTH 11/10/23 Unknown History intramuscular suspension,extended release (Vivitrol) amlodipine 5 mg tablet 10 mg (2 x 5 mg) PO DAILY BP #90 11/29/23 Unknown Rx tabs folic acid 1 mg tablet 1 mg PO DAILY supplement #90 tabs 11/29/23 Unknown Rx lisinopril 40 mg tablet 40 mg PO DAILY blood pressure #90 11/29/23 Unknown Rx tabs magnesium 200 mg tablet 200 mg PO DAILY #90 tabs 11/29/23 Unknown Rx metoprolol succinate 50 mg 50 mg PO DAILY BP #90 tabs 11/29/23 Unknown Rx tablet,extended release 24 hr plecanatide 3 mg tablet (Trulance) 3 mg PO DAILY #90 tabs 11/29/23 Unknown Rx tamsulosin 0.4 mg capsule 0.4 mg PO BID prostate #180 caps 11/29/23 Unknown Rx terbinafine HCl 1 % topical cream 1 applic topical DAILY 11/29/23 Unknown History (Antifungal (terbinafine)) pantoprazole 40 mg tablet,delayed 40 mg PO DAILY GERD #90 tabs 12/02/23 Unknown Rx release dulaglutide 0.75 mg/0.5 mL 0.75 mg (0.5 mL) subcut QWEEK #2 mL 12/05/23 Unknown Rx subcutaneous pen injector (Trulicity) ibuprofen 600 mg tablet 600 mg PO Q6H PRN PRN pain #20 12/15/23 Unknown Rx TABLETS metformin 1,000 mg tablet 1,000 mg PO BID 12/15/23 Unknown History prednisone 20 mg tablet 40 mg (2 x 20 mg) PO DAILY #14 tabs 12/15/23 Unknown Rx valacyclovir 1 gram tablet 1,000 mg PO Q8H #21 tabs 12/15/23 Unknown Rx Allergy/AdvReac Type Severity Reaction Status Date / Time No Known Allergies Allergy Verified 12/13/23 14:15 Family History Mother Cancer ovarian, skin Father PD (Parkinson's disease) Alcoholism Grandfather PD (Parkinson's disease) Alcoholism Hypertension Heart disease Grandmother Diabetes Aunt Diabetes Uncle Diabetes Sister Breast cancer BRCA Surgical History Hx of colonoscopy S/P hip replacement Social History adopted: No household members: other details: transitional home through [facility] current occupational status: employed current occupation: [employer] pets and animals: No Smoking Status: Current some day smoker tobacco type: cigars how long ago did patient quit smokin-4 cigars per year alcohol intake: former year quit: 2023 details: Sober since 07/15/23 substance use type: former substance user Date of last use: 09/2021, marijuana, crack/cocaine and hallucinogens caffeine: Yes (4) Type: coffee frequency: 1-2 times per week do you feel safe at home: Yes ROS ROS ED Constitutional Constitutional ED: Denies chills, fever(s) or sweats Eyes Eyes: Denies change in vision ENT ENT ED: Denies dysphagia or sore throat Cardiovascular Cardiovascular: Reports chest pain; Denies leg edema, palpitations or racing heartbeat Respiratory/Chest Respiratory/Chest: Denies cough, dyspnea or dyspnea on exertion Gastrointestinal Gastrointestinal: Denies abdominal pain, diarrhea, nausea or vomiting Genitourinary Genitourinary ED: Denies dysuria, hematuria or urinary frequency Musculoskeletal Musculoskeletal: Denies back pain, extremity pain or neck pain Integumentary Denies rash or wounds Neurologic Neurologic: Denies headache(s), paresthesias or weakness EXAM Physical Exam Const Vital Signs: 12/15/23 10:16 12/15/23 10:22 12/15/23 10:41 Temperature 97.2 F L Temperature Source Temporal Pulse Rate 93 Respiratory Rate 16 Respiratory Effort Normal Non-Labored Blood Pressure 142/91 H Blood Pressure Mean 108 Pulse Ox 99 99 Oxygen Delivery Method Room Air Room Air 12/15/23 11:14 12/15/23 12:00 12/15/23 13:00 Temperature Temperature Source Pulse Rate 72 72 71 Respiratory Rate 16 16 16 Respiratory Effort Blood Pressure 130/77 H 137/70 H 134/90 H Blood Pressure Mean 94 92 104 Pulse Ox 98 96 98 Oxygen Delivery Method Room Air Room Air Room Air Positive well nourished and well developed General Appearance ED: well developed and NAD HEENT Reports moist mucous membranes normocephalic and atraumatic Eyes EOMs intact bilaterally and conjunctivae normal General Eye ED: Yes normal appearance of both eyes Neck no lymphadenopathy and supple General: Negative for tenderness Chest Wall Chest Narrative: His follicular rash across his mid chest that has been chronic. He had scattered papules at his axilla no vesicles there is no tenderness in this region however states it was tender last night. There is no vesicle or pain across the dermatome on the left side of chest at this time. However region palpation where he reports discomfort around the T8 region. Chest: Negative for tenderness Resp normal respiratory effort and normal air movement Effort and Inspection: symmetric chest movement; Negative for respiratory distress Cardio regular rate, regular rhythm and no murmurs Peripheral Pulses: pulses 2+ throughout GI normal to inspection, nondistended, normoactive bowel sounds and non-tender Palpation: Negative for guarding or rebound tenderness present Back/Spine no CVA tenderness and no thoracic nor lumbar tenderness Extremity normal to inspection General Extremety ED: Negative for edema or tenderness General Extremity: Negative for edema Neuro oriented x3 and no sensory deficits noted Sensorium / Orientation: awake and alert Skin no rashes or lesions noted and no wounds Heart Score History: Slightly/Non-Suspicious ECG: Normal Age: >45 - <65 years Risk Factors: >/= 3 Risk Factors or History of CAD Troponin: </= Normal Limit Score: 3 MDM MDM MDM Narrative Medical decision making narrative: Interventions / MDM: Differential diagnosis: Shingles, atypical chest pain Diagnosis considered but do not suspect: ACS, however EKG cardiac enzymes negative. Pulm embolism however no dyspnea no tachycardia or hypoxia. My EKG interpretation: Sinus rate of 82, no ST or T wave changes. Imaging independently reviewed and interpreted by myself: 2 view chest x-ray: No acute process. External documents reviewed: N/A Test considered but not ordered:N/A ED course: Patient atypical chest pains EKG no acute process. With his recent cardiac arrest 6 months ago cardiac workup initiated. On exam he has lesions axillary where symptoms started and pain along the T8 dermatome consistent with shingles signs and symptoms. Chest x-ray negative initial troponin negative less than 3 negative per algorithm however with his cardiac history he will be monitored for repeat troponin. Results of repeat troponin also negative. His blood glucose 129. Discussed treatment for shingles as his lesions started worsening a day ago. Further discussion he did have mild discomfort for the last few days that worsened yesterday. He will monitor his sugars he started on prednisone and valacyclovir. He is on Vivitrol for alcohol dependence started this past July therefore he cannot do opiates. He will use Motrin this all sent to his pharmacy. I did discuss potentially more rash lesions occurring in his pain regions. Outpatient follow-up with return precautions. All questions were answered. Re-evaluation: stable Disposition discussed with patient/family/significant other: Patient Case discussed with consulting clinician: N/A This note was generated with [employer] dictation software. It may contain incorrect words, spelling, and punctuation that were not noted in checking the note before signing. Lab Data Labs: Laboratory Results - last 24 hr 12/15/23 12/15/23 10:30 12:44 WBC 6.8 RBC 4.43 L Hgb 11.7 L Hct 37.3 L MCV 84.2 MCH 26.4 L MCHC 31.4 L RDW Std Deviation 42.4 RDW Coeff of [place] 13.8 Plt Count 349 MPV 10.1 Immature Gran % (Auto) 0.400 Neut % (Auto) 56.8 Lymph % (Auto) 29.8 [place] % (Auto) 8.5 Eos % (Auto) 3.8 Baso % (Auto) 0.7 Absolute Neuts (auto) 3.9 Absolute Lymphs (auto) 2.03 Nucleated RBC % 0 Sodium 135 L Potassium 3.9 Chloride 103 Carbon Dioxide 24.0 Anion Gap 8 BUN 13 Creatinine 1.20 Estim Creat Clear Calc 69.94 Est GFR (MDRD) Af Amer 80 Est GFR (MDRD) Non-Af 66 BUN/Creatinine Ratio 10.8 Glucose 129 H Calcium 9.1 Troponin I High Sens < 3 L < 3 L Radiography Diagnostic Testing: Clinical Impression(s) from Imaging Studies Chest X-Ray 12/15/23 11:00 IMPRESSION: Mild linear atelectasis at the lung bases. Electronically Signed: Yahir Lr MD at 11:17 EDT , Discharge Plan Triage Chief Complaint: Chest Pain ED Provider: Bijan Summers Dx/Rx/DC Orders Clinical Impression: Atypical chest pain, Type 2 diabetes mellitus, Shingles Instructions: ED Chest Pain, Noncardiac, ED Shingles (Herpes Zoster) Prescriptions: New valacyclovir 1 gram tablet 1,000 mg PO Q8H Qty: 21 0RF prednisone 20 mg tablet 40 mg PO DAILY Qty: 14 0RF ibuprofen 600 mg tablet 600 mg PO Q6H PRN PRN (Reason: pain) Qty: 20 0RF No Action duloxetine 60 mg capsule,delayed release(DR/EC) 60 mg PO DAILY multivitamin with iron Tablet 1 tab PO DAILY Vivitrol 380 mg suspension,extended rel recon 380 mg IM QMONTH bupropion HCl 300 MG tablet extended release 24 hr 300 mg PO DAILY risperidone 1 mg tablet 2 mg PO QHS terbinafine HCl [Antifungal (terbinafine)] 1 % cream 1 applic topical DAILY metformin 1,000 mg tablet 1,000 mg PO BID (DME) OneTouch Verio test strips Strip See Rx Instructions .Route Qty: 100 3RF Rx Instructions: As directed to check BG daily for DMII atorvastatin [Lipitor] 10 mg tablet 10 mg PO QHS Qty: 30 2RF amlodipine 5 mg tablet 10 mg PO DAILY Qty: 90 0RF tamsulosin 0.4 mg capsule 0.4 mg PO BID Qty: 180 0RF lisinopril 40 mg tablet 40 mg PO DAILY Qty: 90 0RF folic acid 1 mg tablet 1 mg PO DAILY Qty: 90 0RF magnesium 200 mg tablet 200 mg PO DAILY Qty: 90 0RF metoprolol succinate 50 mg tablet extended release 24 hr 50 mg PO DAILY Qty: 90 0RF Trulance 3 mg tablet 3 mg PO DAILY Qty: 90 0RF pantoprazole 40 mg tablet,delayed release (DR/EC) 40 mg PO DAILY Qty: 90 0RF Trulicity 0.75 mg/0.5 mL pen injector 0.75 mg subcut QWEEK Qty: 2 2RF Primary Care Provider: Dalila Pedro Referrals: Dalila Pedro MD [Primary Care Provider] - 1 Week Activity Restrictions/Additional Instructions: Your cardiac workup was negative. Your history and exam notes some rash in the axillary where symptoms started concerning for shingles rash. Take medications as prescribed. You may see increasing rash over the next couple days. Follow-up with your doctor. Print Language: German Disposition Disposition: Home, Self Care
[2023-12-15] MEDS: Aspirin 81 MG TAB.CHEW 324 MG PO (10:54)
--- NOTE | 2023-12-15 11:00 | RAD_ITS ---
STUDY: X-RAY CHEST REASON FOR EXAM: Male, 58 years old. Chest pain. TECHNIQUE: PA and lateral views of the chest. COMPARISON: Comparison is made with prior study of July 09, 2023. FINDINGS: EKG electrodes are seen. Limited inspiratory effort. Mild linear atelectasis at the lung bases. There is no demonstrated pleural abnormality. Normal size heart. Normal mediastinum and иван. Normal visualized pulmonary arteries. Normal visualized aortic arch and descending thoracic aorta. There are degenerative changes of the visualized thoracic spine. Normal visualized ribs, clavicles, and shoulders. There is no demonstrated abnormality of the visualized soft tissue structures of the upper abdomen. RAD/Chest PA and Lateral IMPRESSION: Mild linear atelectasis at the lung bases. Electronically Signed: Yahir Lr MD at 11:17 EDT ,
[2023-12-15 11:01] LABS: Anion Gap 8 (5-15); BUN 13 mg/dL (7-18); BUN/Creat Ratio 10.8 RATIO (10-20); Calcium,Total 9.1 mg/dL (8.5-10.1); Chloride 103 mmol/L (98-107); EST Glomerular Filtration Rate 66 mL/min (>60); Est Glom Filt Rate - Afr Amer 80 mL/min (>60); Estimated Creatinine Clearance 69.94 ml/min; Glucose 129 mg/dL (74-106); Potassium 3.9 mmol/L (3.5-5.1); Sodium Level 135 mmol/L (136-145); Troponin-I HS (w/2H Reflex) < 3 pg/mL (3.0-78.0)
[2023-12-15 11:14] VITALS: BP 130/77; PULSE 72; RESP 16; O2SAT 98
[2023-12-15 12:00] VITALS: BP 137/70; PULSE 72; RESP 16; O2SAT 96
[2023-12-15 12:41] LABS: Reflex Troponin-HS? (from REC) Y
[2023-12-15 13:00] VITALS: BP 134/90; PULSE 71; RESP 16; O2SAT 98
[2023-12-15 13:05] LABS: Troponin-I HS < 3 pg/mL (3.0-78.0)
[2023-12-15 13:56] VITALS: BP 136/87; PULSE 77; RESP 16; TEMP 36.7; O2SAT 97
== END 2023-12-15 14:05 | disposition home or self-care (01) ==
PROVIDERS: Emergency Provider Emergency Medicine; PCP Internal Medicine; Visit Provider Emergency Medicine
DX: R07.89 Other chest pain (principal); E11.9 Type 2 diabetes mellitus without complications; I10 Essential (primary) hypertension; E78.00 Pure hypercholesterolemia, unspecified; F17.200 Nicotine dependence, unspecified, uncomplicated; B02.9 Zoster without complications; K21.9 Gastro-esophageal reflux disease without esophagitis; Z79.84 Long term (current) use of oral hypoglycemic drugs
CPT/HCPCS: 71046; 80048; 84484; 85025; 93005; 99283

== ENCOUNTER → 2023-12-25 | Outpatient (CLI) | payer MEDICAID, SELFPAY ==
--- NOTE | 2023-12-25 10:52 | US_ITS ---
STUDY: SUPERFICIAL ULTRASOUND - LEFT BACK REASON FOR EXAM: Male, 58 years old. lump on back TECHNIQUE: A superficial ultrasound was performed with real-time and static buitrago-scale imaging. COMPARISON: None. FINDINGS: Focused sonographic evaluation of the left mid and lower back at the site of a palpable lump shows only normal subcutaneous tissue. There is no suspicious fluid collection or hyperemia US/Other Unlisted US Procedure IMPRESSION: No sonographic evidence of abnormality to correspond with the palpable lump. Electronically Signed: Anthony Browne MD at 10:33 EDT ,
== END | disposition home or self-care (01) ==
LOC: US 10:50
PROVIDERS: PCP Internal Medicine; Referring Provider Physician Assistant; Visit Provider Physician Assistant
DX: R22.2 Localized swelling, mass and lump, trunk (principal)
CPT/HCPCS: 76999

== ENCOUNTER 2024-03-02 02:04 | Inpatient (IN) | payer MEDICAID, SELFPAY ==
[2024-03-02] VITALS (11 sets, daily range): BP systolic 143–185; BP diastolic 90–104; PULSE 88–118; RESP 18–26; TEMP 36.6–37.1; O2SAT 91–100; BMI 28.7; BMI 32.0
--- NOTE | 2024-03-02 02:19 | EDS_ITS ---
HPI History of Present Illness Chief Complaint: ETOH Intox Detail of Chief Complaint: Requesting detox from alcohol Informant: patient Narrative Narrative: Patient presents to the emergency department via EMS from home requesting detox from alcohol. Patient states he started feeling poorly around 1 AM. Last alcoholic beverage was approximately 11 PM. Patient states he has been drinking about half a gallon of vodka for the last 3 weeks. Patient tells me that last May he had a cardiac arrest. Currently he just feels very shaky. He is not been ill otherwise. Denies illicit drug use. Denies tobacco use. Denies feeling suicidal or homicidal. [facility] Medical History Cardiac arrest Wears glasses Alcohol use Prostate disease Fatty liver High cholesterol History of IBS History of echocardiogram History of stress test Cardiology follow-up encounter History of heart attack Myocardial infarct BRCA gene mutation positive in male Anxiety Depression Chronic pain Cirrhosis Former smoker Hyperbilirubinemia Polysubstance dependence Leukopenia Alcohol abuse Bipolar disorder Non-smoker GERMANIA (obstructive sleep apnea) GERD (gastroesophageal reflux disease) Insomnia Anemia Alcoholic hepatitis Essential (primary) hypertension Hypomagnesemia Hypokalemia Acute alcoholic pancreatitis Alcohol withdrawal Home Medications ?Medication ?Instructions ?Recorded ?Last Taken ?Type bupropion HCl 300 mg 24 hr tablet, 300 mg PO DAILY depression 07/12/18 08/10/21 History extended release duloxetine 60 mg capsule,delayed 60 mg PO DAILY 10/18/23 Unknown History release risperidone 1 mg tablet 2 mg PO QHS sleep 10/18/23 Unknown History blood sugar diagnostic (OneTouch #100 ea 10/25/23 Unknown Rx Verio test strips) multivitamin with iron 1 tab PO DAILY PRN iorn deficient 11/10/23 Unknown History naltrexone microspheres 380 mg 380 mg IM QMONTH 11/10/23 Unknown History intramuscular suspension,extended release (Vivitrol) ibuprofen 600 mg tablet 600 mg PO Q6H PRN PRN pain #20 12/15/23 Unknown Rx TABLETS prednisone 20 mg tablet 40 mg (2 x 20 mg) PO DAILY #14 tabs 12/15/23 Unknown Rx atorvastatin 10 mg tablet 10 mg PO QHS #30 TABLETS 12/19/23 Unknown Rx dulaglutide 0.75 mg/0.5 mL 0.75 mg (0.5 mL) subcut QWEEK #2 mL 02/23/24 Unknown Rx subcutaneous pen injector (Trulicity) amlodipine 5 mg tablet 10 mg (2 x 5 mg) PO DAILY BP #90 02/27/24 Unknown Rx tabs folic acid 1 mg tablet 1 mg PO DAILY supplement #90 tabs 02/27/24 Unknown Rx lisinopril 40 mg tablet 40 mg PO DAILY blood pressure #90 02/27/24 Unknown Rx tabs metoprolol succinate 50 mg 50 mg PO DAILY BP #90 tabs 02/27/24 Unknown Rx tablet,extended release 24 hr pantoprazole 40 mg tablet,delayed 40 mg PO DAILY GERD #90 tabs 02/27/24 Unknown Rx release plecanatide 3 mg tablet (Trulance) 3 mg PO DAILY #90 tabs 02/27/24 Unknown Rx tamsulosin 0.4 mg capsule 0.4 mg PO BID prostate #180 caps 02/27/24 Unknown Rx magnesium 200 mg tablet 200 mg PO DAILY #90 tabs 02/29/24 Unknown Rx Allergy/AdvReac Type Severity Reaction Status Date / Time No Known Allergies Allergy Verified 03/02/24 02:12 Family History Mother Cancer ovarian, skin Father PD (Parkinson's disease) Alcoholism Grandfather PD (Parkinson's disease) Alcoholism Hypertension Heart disease Grandmother Diabetes Aunt Diabetes Uncle Diabetes Sister Breast cancer BRCA Surgical History Hx of colonoscopy S/P hip replacement Social History adopted: No household members: other details: transitional home through [address] current occupational status: employed current occupation: [employer] pets and animals: No Smoking Status: Current some day smoker tobacco type: cigars how long ago did patient quit smokin-4 cigars per year alcohol intake: former year quit: 2023 details: Sober since 07/15/23 substance use type: former substance user Date of last use: 09/2021, marijuana, crack/cocaine and hallucinogens caffeine: Yes (4) Type: coffee frequency: 1-2 times per week do you feel safe at home: Yes ROS ROS ED ROS Narrative Requesting detox from alcohol Review of Systems ROS Unobtainable: other Constitutional Constitutional ED: Reports lethargy; Denies chills, fever(s), sweats or weight loss Eyes Eyes: Denies blurry vision, change in vision or diplopia ENT ENT ED: Denies rhinorrhea or sore throat Cardiovascular Cardiovascular: Denies chest pain, orthopnea or racing heartbeat Respiratory/Chest Respiratory/Chest: Denies cough, dyspnea, dyspnea on exertion, orthopnea or sputum Gastrointestinal Gastrointestinal: Denies abdominal pain, diarrhea, nausea or vomiting Genitourinary Genitourinary ED: Denies dysuria, hematuria or urinary frequency Musculoskeletal Musculoskeletal: Denies arthralgias, back pain, myalgias or neck pain Integumentary Denies abscess, Abrasions or rash Neurologic Neurologic: Reports other Details: Feeling shaky ; Denies headache(s) or weakness Psychiatric Psychiatric: Denies anxiety, depression or suicidal thoughts Endocrine Endocrinology: Denies polydipsia, polyphagia or polyuria Hematologic/Lymphatic Hematologic/Lymphatic: Denies easy bleeding, easy bruising or lymphadenopathy Allergic/Immunologic Allergic/Immunologic ED: Denies mouth swelling, tongue swelling or urticaria EXAM Physical Exam Const Vital Signs: 03/02/24 02:05 03/02/24 02:08 Temperature 97.8 F Temperature Source Oral Pulse Rate 101 H 90 Respiratory Rate 26 H 24 H Blood Pressure 175/99 H 185/99 H Blood Pressure Mean 124 127 Blood Pressure Source Monitor Blood Pressure Position Semi-Fowlers Blood Pressure Location Left Arm Pulse Ox 99 99 Oxygen Delivery Method Room Air Nasal Cannula Positive well nourished and well developed General Appearance ED: well developed and NAD HEENT Reports TM's clear and moist mucous membranes normocephalic and atraumatic; Negative for trauma or tenderness Tympanic Membrane ED: Yes TM's clear Eyes PERRL and EOMs intact bilaterally General Eye ED: Negative for pale conjunctiva or scleral icterus Neck no lymphadenopathy, supple and no JVD General: Negative for tenderness Chest Wall inspection of chest normal and palpation of chest normal Chest: Negative for tenderness Resp normal respiratory effort and clear to auscultation bilaterally Effort and Inspection: Negative for respiratory distress or pain with movement Auscultation: Negative for rhonchi, wheezes or diminished lung sounds Cardio regular rate, regular rhythm, S1 normal heart sound, S2 normal heart sound and no murmurs Peripheral Pulses: pulses 2+ throughout GI normal to inspection, nondistended, normoactive bowel sounds, soft to palpation, non-tender, non-distended and no masses Back/Spine no CVA tenderness and no thoracic nor lumbar tenderness Extremity normal to inspection General Extremety ED: Negative for edema General Extremity: Negative for edema Neuro oriented x3, CN's II-XII intact bilaterally, no sensory deficits noted and gait normal Neuro Narrative: Fine diffuse tremor. Sensorium / Orientation: awake, alert, oriented to person, oriented to place and oriented to time Motor Exam: strength 5/5 throughout and strength abnormal Psych mental status grossly normal Skin no rashes or lesions noted and no wounds MDM MDM MDM Narrative Medical decision making narrative: Patient presents to the emergency department requesting detox from alcohol. IV line established. CBC with differential obtained showed a white count of 3.4 with hemoglobin 12.7 platelet count of 106. Chemistries shows sodium 131 with potassium 4.0 and a CO2 of 14. BUN 12 and creatinine 1.04. Patient has a total bilirubin of 2, AST 490, ALT 263, and alk phos of 283. Alcohol was 271. Case discussed with hospitalist to evaluate patient for admission. I did give him a milligram of Ativan IV. Will continue with IV hydration. Lab Data Attestation: I reviewed the patient's lab results. Labs: Laboratory Results - last 24 hr 03/02/24 02:16 WBC 3.4 L RBC 4.72 Hgb 12.7 L Hct 38.0 L MCV 80.5 MCH 26.9 L MCHC 33.4 RDW Std Deviation 55.3 H RDW Coeff of [place] 18.8 H Plt Count 106 L MPV 9.6 Immature Gran % (Auto) 1.500 H Neut % (Auto) 56.7 Lymph % (Auto) 32.0 [place] % (Auto) 8.3 Eos % (Auto) 0.3 Baso % (Auto) 1.2 H Absolute Neuts (auto) 1.9 L Absolute Lymphs (auto) 1.08 Nucleated RBC % 0 Sodium 131 L Potassium 4.0 Chloride 93 L Carbon Dioxide 14.0 L Anion Gap 24 H BUN 12 Creatinine 1.04 Estim Creat Clear Calc 75.43 Est GFR (MDRD) Af Amer 94 Est GFR (MDRD) Non-Af 77 BUN/Creatinine Ratio 11.5 Glucose 112 H Calcium 9.2 Total Bilirubin 2.00 H AST 490 H ALT 263 H Alkaline Phosphatase 283 H Total Protein 8.3 H Albumin 4.0 Globulin 4.3 H Albumin/Globulin Ratio 0.9 Ethyl Alcohol 271.0 EKG Initial EKG: Attestation: I personally reviewed and interpreted this EKG as follows: Comments: Sinus rhythm with rate of 101 bpm with no acute ST segment changes Discharge Plan Triage Chief Complaint: ETOH Intox ED Provider: Maulik Howard Dx/Rx/DC Orders Clinical Impression: Alcohol intoxication, Admitted to alcohol detoxification center, Elevated liver enzymes, Hx of cirrhosis, History of coronary artery disease Prescriptions: No Action duloxetine 60 mg capsule,delayed release(DR/EC) 60 mg PO DAILY multivitamin with iron Tablet 1 tab PO DAILY PRN (Reason: iorn deficient ) Vivitrol 380 mg suspension,extended rel recon 380 mg IM QMONTH bupropion HCl 300 MG tablet extended release 24 hr 300 mg PO DAILY risperidone 1 mg tablet 2 mg PO QHS prednisone 20 mg tablet 40 mg PO DAILY Qty: 14 0RF ibuprofen 600 mg tablet 600 mg PO Q6H PRN PRN (Reason: pain) Qty: 20 0RF (DME) OneTouch Verio test strips Strip See Rx Instructions .Route Qty: 100 3RF Rx Instructions: As directed to check BG daily for DMII atorvastatin 10 mg tablet 10 mg PO QHS Qty: 30 2RF Trulicity 0.75 mg/0.5 mL pen injector 0.75 mg subcut QWEEK Qty: 2 0RF amlodipine 5 mg tablet 10 mg PO DAILY Qty: 90 0RF folic acid 1 mg tablet 1 mg PO DAILY Qty: 90 0RF lisinopril 40 mg tablet 40 mg PO DAILY Qty: 90 0RF metoprolol succinate 50 mg tablet extended release 24 hr 50 mg PO DAILY Qty: 90 0RF pantoprazole 40 mg tablet,delayed release (DR/EC) 40 mg PO DAILY Qty: 90 0RF Trulance 3 mg tablet 3 mg PO DAILY Qty: 90 0RF tamsulosin 0.4 mg capsule 0.4 mg PO BID Qty: 180 0RF magnesium 200 mg tablet 200 mg PO DAILY Qty: 90 0RF Primary Care Provider: Dalila Pedro Referrals: Dalila Pedro MD [Primary Care Provider] - Print Language: Kinyarwanda Disposition Disposition: Acute Care [facility]
[2024-03-02] MEDS: LORazepam 2 MG/ML Syringe 1 MG IV (02:28)
[2024-03-02 02:30] LABS: Absolute Lymphocyte Count 1.08 X10^3/uL (0.83-4.51); Absolute Neutrophil Count 1.9 X10^3/uL (2.0-7.7); Basophil# 0.04 X10^3/uL; Basophil% 1.2 % (0-1); Eosinophil# 0.01 X10^3/uL; Eosinophils% 0.3 % (0-5); Hemoglobin 12.7 g/dL (13.0-16.5); Lymphocyte # 1.08 X10^3/ul (0.83-4.51); Mean Corp Hgb Conc 33.4 g/dL (32-36); Mean Corpuscular Hgb 26.9 pg (27.0-32.0); Mean Corpuscular Volume 80.5 fL (80-94); Mean Platelet Vol. 9.6 fl (6.2-12.0); Monocyte# 0.28 X10^3/uL; Monocyte% 8.3 % (0-10); NRBC Flagged by Analyzer 0 % (0-5); Neutrophil # 1.91 X10^3/uL (2.7-7.7); Neutrophil % 56.7 % (47-70); Platelet Count 106 K/mm3 (150-450); RBC Distribution Width CV 18.8 % (11.6-14.6); RBC Distribution Width SD 55.3 fl (35.1-43.9); Red Blood Count 4.72 M/mm3 (4.6-6.2); White Blood Count 3.4 K/mm3 (4.4-11.0)
[2024-03-02] MEDS: 0.9% Normal Saline (1000mL) 1,000 ML 150 ML IV (02:38)
[2024-03-02 02:46] LABS: ALB/GLOB Ratio 0.9 RATIO (0.9-2.4); AST(SGOT) 490 U/L (15-37); Alanine Aminotransfer ALT/SGPT 263 U/L (16-61); Alkaline Phosphatase 283 U/L (45-117); Anion Gap 24 (5-15); BUN 12 mg/dL (7-18); BUN/Creat Ratio 11.5 RATIO (10-20); Calcium,Total 9.2 mg/dL (8.5-10.1); Chloride 93 mmol/L (98-107); Creatinine, Serum 1.04 mg/dL (0.70-1.30); EST Glomerular Filtration Rate 77 mL/min (>60); Est Glom Filt Rate - Afr Amer 94 mL/min (>60); Estimated Creatinine Clearance 75.43 ml/min; Globulin 4.3 g/dL (2.2-4.2); Glucose 112 mg/dL (74-106); Protein, Total 8.3 g/dL (6.4-8.2); Sodium Level 131 mmol/L (136-145)
--- NOTE | 2024-03-02 03:36 | HP.PCM.HOS_ITS ---
HPI - General General Date of Admission: 03/02/24 Date of Service: 03/02/24 Chief Complaint: Pending acute alcohol withdrawal HPI Narrative CHERELLE STEEN, is a 59 M who presented to the emergency department at [facility] on 03/02/2020 for requesting alcohol detox. The patient has had multiple admissions for alcohol detox however he has not been admitted for alcohol detox here since 07/2023. He reports that currently over the past 3 weeks he has been drinking half a gallon of vodka a day. He is living alone and covered in stool and appears to be markedly disheveled on presentation. His last drink was about 11 PM the night prior to presentation. On presentation he feels very shaky but has not had any nausea or vomiting. Patient indicates he has not eaten in about 5 days and is only been drinking alcohol continuously. He denies suicidal or homicidal ideation, denies tobacco abuse, and denies illicit drug use. Vital signs on presentation showed temperature of 97.8, heart rate 101, blood pressure 175/99, respiratory rate was 26 and oxygen saturations were 99% on room air. CBC shows pancytopenia with a white count of 3.4, hemoglobin of 11.7, and platelet count of 106,000. He has mild hyponatremia with a sodium of 131, his serum bicarb is 14 with a 24 anion gap. Renal function is normal. Liver function is abnormal with a bilirubin of 2, AST of 490 and an ALT of 263. His ethyl alcohol level is 271. [facility] Medical History (Updated 03/02/24 @ 04:[address] Mya Ulrich, DO) Cardiac arrest Wears glasses Alcohol use Prostate disease Fatty liver High cholesterol History of IBS History of echocardiogram History of stress test Cardiology follow-up encounter History of heart attack Myocardial infarct BRCA gene mutation positive in male Anxiety Depression Chronic pain Cirrhosis Former smoker Hyperbilirubinemia Polysubstance dependence Leukopenia Alcohol abuse Bipolar disorder Non-smoker GERMANIA (obstructive sleep apnea) GERD (gastroesophageal reflux disease) Insomnia Anemia Alcoholic hepatitis Essential (primary) hypertension Hypomagnesemia Hypokalemia Acute alcoholic pancreatitis Alcohol withdrawal Home Medications ?Medication ?Instructions ?Recorded ?Last Taken ?Type bupropion HCl 300 mg 24 hr tablet, 300 mg PO DAILY depression 07/12/18 08/10/21 History extended release duloxetine 60 mg capsule,delayed 60 mg PO DAILY 10/18/23 Unknown History release risperidone 1 mg tablet 2 mg PO QHS sleep 10/18/23 Unknown History blood sugar diagnostic (OneTouch #100 ea 10/25/23 Unknown Rx Verio test strips) multivitamin with iron 1 tab PO DAILY PRN iorn deficient 11/10/23 Unknown History naltrexone microspheres 380 mg 380 mg IM QMONTH etoh 11/10/23 Unknown History intramuscular suspension,extended release (Vivitrol) ibuprofen 600 mg tablet 600 mg PO Q6H PRN PRN pain #20 12/15/23 Unknown Rx TABLETS prednisone 20 mg tablet 40 mg (2 x 20 mg) PO DAILY steroid 12/15/23 Unknown Rx #14 tabs atorvastatin 10 mg tablet 10 mg PO QHS hld #30 TABLETS 12/19/23 Unknown Rx dulaglutide 0.75 mg/0.5 mL 0.75 mg (0.5 mL) subcut QWEEK 02/23/24 Unknown Rx subcutaneous pen injector diabetes #2 mL (Trulicity) amlodipine 5 mg tablet 10 mg (2 x 5 mg) PO DAILY BP #90 02/27/24 Unknown Rx tabs folic acid 1 mg tablet 1 mg PO DAILY supplement #90 tabs 02/27/24 Unknown Rx lisinopril 40 mg tablet 40 mg PO DAILY blood pressure #90 02/27/24 Unknown Rx tabs metoprolol succinate 50 mg 50 mg PO DAILY BP #90 tabs 02/27/24 Unknown Rx tablet,extended release 24 hr pantoprazole 40 mg tablet,delayed 40 mg PO DAILY GERD #90 tabs 02/27/24 Unknown Rx release plecanatide 3 mg tablet (Trulance) 3 mg PO DAILY diabetes #90 tabs 02/27/24 Unknown Rx tamsulosin 0.4 mg capsule 0.4 mg PO BID prostate #180 caps 02/27/24 Unknown Rx magnesium 200 mg tablet 200 mg PO DAILY supplement #90 tabs 02/29/24 Unknown Rx Allergy/AdvReac Type Severity Reaction Status Date / Time No Known Allergies Allergy Verified 03/02/24 02:12 Family History Mother Cancer ovarian, skin Father PD (Parkinson's disease) Alcoholism Grandfather PD (Parkinson's disease) Alcoholism Hypertension Heart disease Grandmother Diabetes Aunt Diabetes Uncle Diabetes Sister Breast cancer BRCA Surgical History Hx of colonoscopy S/P hip replacement Social History (Updated 03/02/24 @ 04:[address] Mya Ulrich DO) adopted: No household members: none and other housing: apartment pets and animals: No Smoking Status: Former smoker how long ago did patient quit smokin-4 cigars per year alcohol intake: current details: 1/2 gallon of vodka daily substance use type: former substance user Date of last use: 09/2021, marijuana, crack/cocaine and hallucinogens caffeine: Yes (4) Type: coffee frequency: 1-2 times per week do you feel safe at home: Yes ROS Constitutional Constitutional: Reports malaise and weakness; Denies anorexia, change in weight, chills, fatigue, fever(s), night sweats or other Eyes Eyes: Denies blurry vision, change in eye color, change in vision, discharge from eye(s), double vision, erythema, eye pain, loss of vision or other ENT HEENT: Denies abnormal hearing, dysphagia, ear pain, epistaxis, headache(s), hearing loss, nasal congestion, nasal discharge, post nasal drip, sinus pressure, sore throat or other Cardiovascular Cardiovascular: Denies chest pain, claudication, dyspnea on exertion, edema, lightheadedness, orthopnea, palpitations, paroxysmal nocturnal dyspnea, rapid heart rate, syncope or other Respiratory/Chest Respiratory/Chest: Denies cough, dyspnea, excessive phlegm production, hemoptysis, productive cough, shortness of breath at rest, shortness of breath with exertion, wheezing or other Gastrointestinal Gastrointestinal: Denies abdominal pain, coffee ground emesis, constipation, diarrhea, dyspepsia, hematemesis, hematochezia, loose stools, melena, nausea, vomiting or other Genitourinary Genitourinary: Denies burning urination, difficulty urinating, dysuria, hematuria, nocturia, urinary frequency, urinary hesitancy, urinary incontinence, urinary urgency or other Musculoskeletal Musculoskeletal: Denies arthralgias, back pain, joint pain, joint stiffness, joint swelling, myalgias, neck pain or other Neurologic Neurologic: Reports tremor(s); Denies abnormal gait, abnormal speech, confusion, disequilibrium, dizziness, focal weakness, headache(s), numbness, paresthesias, seizure-like activity, seizures, syncope, tingling or other Psychiatric Psychiatric: Reports anxiety and depression; Denies homicidal ideation, suicidal ideation or other Endocrine Endocrinology: Denies change in body appearance, cold intolerance, excessive sweating, heat intolerance, polydipsia, polyuria or other Hematologic/Lymphatic Hematologic/Lymphatic: Denies anemia, easy bleeding, easy bruising, lymphadenopathy or other Allergic/Immunologic Allergic/Immunologic: Denies rhinitis, hives, eczemia, asthma or other Vital Signs Vital Signs Vital Signs: 03/02/24 02:05 03/02/24 02:08 03/02/24 02:58 Temperature 97.8 F 98.3 F Temperature Source Oral Pulse Rate 101 H 90 90 Respiratory Rate 26 H 24 H 22 H Blood Pressure 175/99 H 185/99 H 173/94 H Blood Pressure Mean 124 127 120 Blood Pressure Source Monitor Blood Pressure Position Semi-Fowlers Blood Pressure Location Left Arm Pulse Ox 99 99 91 Oxygen Delivery Method Room Air Nasal Cannula 03/02/24 03:05 Temperature Temperature Source Pulse Rate 110 H Respiratory Rate 19 H Blood Pressure 172/100 H Blood Pressure Mean 124 Blood Pressure Source Blood Pressure Position Blood Pressure Location Pulse Ox 98 Oxygen Delivery Method Room Air Weight Weight: 80.8 kg Body Mass Index (BMI) 28.7 Physical Exam Const alert, oriented x3 and no apparent distress; Negative for average body habitus, healthy appearing or well nourished Constitutional Narrative: Markedly disheveled, middle-aged, white male, stool on legs and feet and hair does not appear to been washed anytime recently with severe seborrheic keratosis, appears markedly tremulous but alert and oriented x 3 at the present time, overweight General Appearance: cooperative HEENT normocephalic, head/scalp atraumatic and hearing grossly normal bilaterally HEENT Narrative: Dentition is poor, Mallampati is 3, no thrush, oropharynx is markedly dry Eyes PERRL, EOMs intact bilaterally and conjunctivae normal Eyes Narrative: Eyes are bloodshot, no scleral icterus Neck no lymphadenopathy and supple Neck Narrative: Trachea midline, no thyroid enlargement Resp normal respiratory effort, no retractions, no use of accessory muscles and clear to auscultation bilaterally Resp Narrative: Diminished but clear Auscultation: Negative for rales, rhonchi or wheezes Cardio regular rhythm, S1 normal heart sound, S2 normal heart sound, no murmurs, no rub, no gallops and no clicks Cardio Narrative: Mild tachycardia GI normal to inspection, nondistended, normoactive bowel sounds, soft to palpation and non-tender Extremity no clubbing, cyanosis or edema Extremity Narrative: Pedal and radial pulses are 2+ Skin no jaundice, no petechiae and no mottling Skin Narrative: Legs/feet covered in stool, seborrheic keratosis on head/scalp, overall appears extremely unkempt with regards to his skin and nails Neuro oriented x3, CN's II-XII intact bilaterally, moves all extremities and no focal motor deficits Neuro Narrative: Significant tremor noted but no focal deficits, speech is slightly slurred Psych Psych Narrative: Affect is flat Results Lab / Micro Data 03/02/24 02:16 03/02/24 02:16 Labs: Laboratory Results - last 24 hr 03/02/24 02:16: WBC 3.4 L, RBC 4.72, Hgb 12.7 L, Hct 38.0 L, MCV 80.5, MCH 26.9 L, MCHC 33.4, RDW Std Deviation 55.3 H, RDW Coeff of [place] 18.8 H, Plt Count 106 L , MPV 9.6, Immature Gran % (Auto) 1.500 H, Neut % (Auto) 56.7, Lymph % (Auto) 32.0, [place] % (Auto) 8.3, Eos % (Auto) 0.3, Baso % (Auto) 1.2 H, Absolute Neuts (auto) 1.9 L, Absolute Lymphs (auto) 1.08, Nucleated RBC % 0, Sodium 131 L, Potassium 4.0, Chloride 93 L, Carbon Dioxide 14.0 L, Anion Gap 24 H, BUN 12, Creatinine 1.04, Estim Creat Clear Calc 75.43, Est GFR (MDRD) Af Amer 94, Est GFR (MDRD) Non-Af 77, BUN/Creatinine Ratio 11.5, Glucose 112 H, Calcium 9.2, T otal Bilirubin 2.00 H, AST 490 H, ALT 263 H, Alkaline Phosphatase 283 H, Total Protein 8.3 H, Albumin 4.0, Globulin 4.3 H, Albumin/Globulin Ratio 0.9, Ethyl Alcohol 271.0 Assessment & Plan Assessment/Plan (1) Alcohol intoxication: (2) Pancytopenia: (3) High anion gap metabolic acidosis: (4) Alcoholic ketosis: (5) Elevated liver enzymes: PLAN: Plan Pending acute alcohol withdrawal with acute alcohol intoxication -Phenobarbital taper ordered -Ativan taper ordered with [facility] protocol -If patient decompensates from a withdrawal standpoint would recommend transfer to the ICU and initiation of Precedex -supportive medications for symptom management -Thiamine and folate -180 consultation -I highly recommended to him inpatient rehab at discharge Acute hyponatremia -Mild -Patient with multiple risk factors for hyponatremia including chronic alcohol use, poor solute intake, potential SIADH with home medication use -Serum sodium on admission was 131 -Baseline sodium appears to be 135-140 -Hydrate with IV fluids -Repeat CMP at 10 AM Acute hepatitis with hyperbilirubinemia -Suspect alcoholic induced hepatitis but unable to rule out other causes -Liver pattern is present -Repeat CMP in a.m. Anion gap metabolic acidosis -Likely starvation and alcoholic ketosis -Aggressive hydration -Repeat CMP at 10:00 Pancytopenia -Suspect marrow toxicity related to his alcohol intake -Monitor clinically -Repeat lab in a.m. Hypertension -Continue amlodipine 10 mg daily -Continue lisinopril 40 mg daily -Continue metoprolol 50 daily GERD -Continue Protonix 40 mg daily Bipolar disease/depression/anxiety -Continue home risperidone -Continue duloxetine -Continue home bupropion BPH with obstruction -Continue home Flomax DVT prophylaxis -Lovenox 40 mg subcu daily CODE STATUS -Full code Charges/Coding Visit Charges Inpatient E&M: 09542 Init Hosp L2
[2024-03-02] MEDS: Phenobarbital 32.4 MG Tablet PO ×6 (05:30→20:28)
[2024-03-02] MEDS: 0.9% Normal Saline (1000mL) 1,000 ML 100 ML IV ×2 (05:31→18:01)
[2024-03-02] MEDS: Gabapentin 300 MG Capsule PO (05:31)
[2024-03-02 06:38] LABS: Absolute Lymphocyte Count 0.69 X10^3/uL (0.83-4.51); Absolute Neutrophil Count 2.2 X10^3/uL (2.0-7.7); Basophil# 0.01 X10^3/uL; Basophil% 0.3 % (0-1); Eosinophil# 0.01 X10^3/uL; Eosinophils% 0.3 % (0-5); Hematocrit 35.5 % (40-54); Hemoglobin 11.8 g/dL (13.0-16.5); Lymphocyte # 0.69 X10^3/ul (0.83-4.51); Lymphocyte % 21.3 % (19-41); Mean Corp Hgb Conc 33.2 g/dL (32-36); Mean Corpuscular Hgb 26.9 pg (27.0-32.0); Mean Corpuscular Volume 80.9 fL (80-94); Mean Platelet Vol. 9.7 fl (6.2-12.0); Monocyte# 0.29 X10^3/uL; NRBC Flagged by Analyzer 0 % (0-5); Neutrophil # 2.22 X10^3/uL (2.7-7.7); Neutrophil % 68.5 % (47-70); POSITIVE COUNT YES; Platelet Count 83 K/mm3 (150-450); RBC Distribution Width CV 18.8 % (11.6-14.6); RBC Distribution Width SD 55.9 fl (35.1-43.9); Red Blood Count 4.39 M/mm3 (4.6-6.2); White Blood Count 3.2 K/mm3 (4.4-11.0)
--- NOTE | 2024-03-02 06:50 | PN.HOSP_ITS ---
Reason for Visit Reason for Visit: Diagnoses Other pancytopenia (03/02/24) Other acidosis (03/02/24) Other specified metabolic disorders (03/02/24) Alcohol use, unspecified with intoxication, unspecified (03/02/24) Abnormal levels of other serum enzymes (03/02/24) Subjective Subjective Patient since transition with ongoing significantly elevated CIWA scores with additional oral phenobarbital and CIWA protocol Ativan administered with patient noted mild nausea, muscle tremors and mild agitation as well as tactile disturbances. Following this patient did improve mildly and was able to fall asleep and upon repeat assessment he does report feeling mildly improved. Patient denies fevers, chills, emesis, abdominal pain, chest pain or dyspnea. Objective Data Objective Data Vital Signs: Vital Signs Temp Pulse Resp BP Pulse Ox O2 Del Method 98 F 90 20 H 164/93 H 98 Room Air 03/02/24 04:58 03/02/24 04:58 03/02/24 04:58 03/02/24 04:58 03/02/24 05:15 03/02/24 05:15 Oxygen Delivery Method Room Air Weight: 198 lb 6.656 oz Body Mass Index (BMI) 32.0 Intake & Output: Intake and Output for Last 24 Hours 02/29/24 03/01/24 03/02/24 23:59 23:59 23:59 Intake Total 627.5 / 627.5 Balance 627.5 / 627.5 Lab / Micro Data 03/02/24 06:06 03/02/24 06:06 Labs: Laboratory Results - last 24 hr 03/02/24 02:16: WBC 3.4 L, RBC 4.72, Hgb 12.7 L, Hct 38.0 L, MCV 80.5, MCH 26.9 L, MCHC 33.4, RDW Std Deviation 55.3 H, RDW Coeff of [place] 18.8 H, Plt Count 106 L , MPV 9.6, Immature Gran % (Auto) 1.500 H, Neut % (Auto) 56.7, Lymph % (Auto) 32.0, [place] % (Auto) 8.3, Eos % (Auto) 0.3, Baso % (Auto) 1.2 H, Absolute Neuts (auto) 1.9 L, Absolute Lymphs (auto) 1.08, Nucleated RBC % 0, Sodium 131 L, Potassium 4.0, Chloride 93 L, Carbon Dioxide 14.0 L, Anion Gap 24 H, BUN 12, Creatinine 1.04, Estim Creat Clear Calc 75.43, Est GFR (MDRD) Af Amer 94, Est GFR (MDRD) Non-Af 77, BUN/Creatinine Ratio 11.5, Glucose 112 H, Calcium 9.2, T otal Bilirubin 2.00 H, AST 490 H, ALT 263 H, Alkaline Phosphatase 283 H, Total Protein 8.3 H, Albumin 4.0, Globulin 4.3 H, Albumin/Globulin Ratio 0.9, Ethyl Alcohol 271.0 03/02/ 06:06: WBC 3.2 L, RBC 4.39 L, Hgb 11.8 L, Hct 35.5 L, MCV 80.9, MCH 26.9 L, MCHC 33.2, RDW Std Deviation 55.9 H, RDW Coeff of [place] 18.8 H, Plt Count 83 L, MPV 9.7, Immature Gran % (Auto) 0.600, Neut % (Auto) 68.5, Lymph % (Auto) 21.3, [place] % (Auto) 9.0, Eos % (Auto) 0.3, Baso % (Auto) 0.3, Absolute Neuts (auto) 2.2, Absolute Lymphs (auto) 0.69 L, Nucleated RBC % 0 Physical Exam Narrative Physical Examination: General: Awake, alert, oriented x 3 and cooperative, significantly tremulous, appears in overt withdrawal. Skin: Normal color, normal turgor, no icterus, no cyanosis except very staged ecchymoses, bilateral lower extremity venous stasis skin changes. HEENT: AT/NC, EOMI, PERRLA, dry MM. Lungs: Mildly diminished, greater bases, appropriate effort, no rales, ronchi or wheezing. Heart: Tachycardic with regular rhythm; no gallop, rub audible. Abdomen: Soft, obese, NTTP, no appreciated distention, mildly hyperactive BS. Extremities: No cyanosis, no clubbing, no significant peripheral edema, see skin. Neurological: Patient awake, alert, oriented as noted, cognitive function intact; pupils equally reactive to light and accommodation, cranial nerves grossly normal, moving all 4 extremities, no focal deficits, strength moderately to severely globally decreased secondary to severity withdrawal symptoms, being ordered additional phenobarbital as well as CIWA Ativan to assist. Psychiatric: Affect appears fatigued, appears in overt withdrawal, no acute evidence of depressive or anxiety feelings. Assessment & Plan Assessment/Plan (1) Alcohol intoxication: (2) Pancytopenia: (3) High anion gap metabolic acidosis: (4) Alcoholic ketosis: (5) Elevated liver enzymes: PLAN: Plan The patient is a 59 y/o M w/ PMHx: EtOH abuse, Chronic hyponatremia secondary to EtOH abuse, Chronic anemia/thrombocytopenia/intermittent leukopenia secondary to likely EtOH abuse, HTN, GERD, Chronic EtOH hepatitis w/ EtOH related Cirrhosis w/ Hyperbilirubinemia/Transaminitis, BPH with obstructive symptoms, Anxiety and Depression/Bipolar disorder, GERMANIA, Diabetes mellitus type II who presents to the [facility] ED on 03/02/24 with history of 3 weeks of ongoing half gallon vodka daily with decision to present for alcohol withdrawal treatment with last drink approximately 11 PM evening prior to day of presentation. #1. Acute EtOH Withdrawal with associated electrolyte disturbances including hypomagnesemia, hypophosphatemia in addition to suspected anion gap metabolic acidosis felt likely secondary to starvation and alcoholic ketosis: Patient admitted to medical surgical floor, initially per report it appeared intoxicated but currently in overt withdrawal, currently maintained on protocol with taper course of Phenobarbital, as needed gabapentin, Catapres, Bentyl, Vistaril, IV fluids, IV antiemetics, Tylenol as needed for pain. Consulted Case management for assistance for transition to next level of rehabilitation care. Mag, phos pending. Maintain on CIWA protocol concurrently. 03/02/2024 evaluation with notable elevated CIWA scoring thus additional oral dose of phenobarbital and CIWA Ativan administered. If necessary may consider IV dosing of phenobarbital if ongoing severe symptoms noted. Magnesium 1.5 with supplementation begin administered, repeat level in AM. Phosphorus 2.4 with supplementation being administered, repeat level in AM. Patient would benefit most from an inpatient rehab setting once discharge is appropriate. Will maintain on MVI, thiamine and folic acid. Admission CMP with anion gap 24 with repeat 03/02/2024 improvement to 19, glucose noted to be 112, given patient does have a diabetic history to be cautious acetone level has been requested as well as osmolality. #2. Acute alcoholic hepatitis on chronic with hyperbilirubinemia: Admission CMP with total bilirubin 2.0, AST/ALT 490/263, alk phos 283, continue treatment as noted above, repeat 03/02/24 CMP with total bilirubin 2.0, AST/ALT 434/241, alk phos 267, will continue to trend to assure continued downward trending. #3. Pancytopenia, noted chronic component as well, likely secondary to marrow toxicity related to alcohol abuse: Admission CBC with WBC 3.4, hemoglobin 12.7, MCV 80.5, platelet 106 with increased immature granulocytes with repeat 03/02/24 CBC with WBC 3.2, hemoglobin 11.8, MCV 80.9, platelet 83, will continue to closely monitor and repeat level in a.m. to be cautious. #4. Hyponatremia, chronic: Likely secondary to alcohol abuse, poor intake, admission sodium initially 131, repeat 129, judiciously hydrated in the ED, will repeat CMP in AM. #5. Diabetes mellitus type II with anion gap metabolic acidosis, felt likely secondary to or likely starvation alcoholic ketosis: Hold oral home regimen, ADA diet, accu checks w/ ISS, to be cautious however awaiting serum osmolality as well as acetone level and will continue to trend CMP as needed. #6. Hypertension: Continue home regimen including amlodipine, lisinopril, metoprolol, PRN hydralazine. #7. Hyperlipidemia: Not on statin therapy, defer especially given hyperbilirubinemia/transaminitis. #8. Anxiety and depression/bipolar disorder: Will continue home risperidone, duloxetine and bupropion regimen. Would benefit from aggressive outpatient evaluation and treatments to be ongoing is likely contributing to alcohol abuse history. #9. BPH with obstructive pattern: Patient with chronic urinary frequency, no evidence of acute obstruction currently, will continue patient on Flomax regimen. #10. GERD: We will continue patient on PPI. #11. DVT prophylaxis: Will continue Lovenox however cautiously monitor given pancytopenia. #12. CODE STATUS: Full Code status. Charges/Coding Procedures Hospitalists Procedures: Other Procedure - See Report (Billing code [id number], same day admission, unable to bill)
[2024-03-02 06:58] LABS: Bedside Glucose 81 mg/dL (74-106)
[2024-03-02 07:07] LABS: ALB/GLOB Ratio 0.9 RATIO (0.9-2.4); AST(SGOT) 434 U/L (15-37); Alanine Aminotransfer ALT/SGPT 241 U/L (16-61); Albumin, Serum 3.6 g/dL (3.2-5.0); Alkaline Phosphatase 267 U/L (45-117); Anion Gap 19 (5-15); BUN 11 mg/dL (7-18); BUN/Creat Ratio 14.5 RATIO (10-20); Calcium,Total 8.8 mg/dL (8.5-10.1); Chloride 94 mmol/L (98-107); Creatinine, Serum 0.76 mg/dL (0.70-1.30); EST Glomerular Filtration Rate 111 mL/min (>60); Est Glom Filt Rate - Afr Amer 135 mL/min (>60); Globulin 3.8 g/dL (2.2-4.2); Glucose 78 mg/dL (74-106); Magnesium 1.5 mg/dL (1.6-2.6); Phosphorus 2.4 mg/dL (2.5-4.9); Potassium 3.6 mmol/L (3.5-5.1); Protein, Total 7.4 g/dL (6.4-8.2); Sodium Level 129 mmol/L (136-145)
[2024-03-02] MEDS: LORazepam 2 MG/ML Syringe IV ×5 (07:29→20:28)
[2024-03-02] MEDS: Metoprolol(XL)Succ 50 MG Tablet PO (09:32)
[2024-03-02] MEDS: Multivitamins,Ther W-Minerals Tablet 1 TABLET PO (09:32)
[2024-03-02] MEDS: Pantoprazole Sodium 40 MG Tablet PO (09:32)
[2024-03-02] MEDS: Lisinopril 40 MG Tablet PO (09:33)
[2024-03-02] MEDS: buPROPion (XL) 300 MG TABLET.XL PO (09:33)
[2024-03-02] MEDS: amLODIPine 10 MG Tablet PO (09:33)
[2024-03-02] MEDS: Magnesium Chloride 64 MG Delay Rel.Tablet PO (09:33)
[2024-03-02] MEDS: Enoxaparin 40 MG/0.4 ML Syringe SC (09:34)
[2024-03-02] MEDS: Thiamine Hydrochloride 100 MG Tablet PO (09:34)
[2024-03-02] MEDS: Tamsulosin HCl 0.4 MG Capsule PO ×2 (09:34→20:28)
[2024-03-02] MEDS: DULoxetine Hcl 60 MG Capsule PO (09:34)
[2024-03-02] MEDS: Folic Acid 1 MG Tablet PO (09:35)
[2024-03-02 11:03] LABS: ALB/GLOB Ratio 0.9 RATIO (0.9-2.4); AST(SGOT) 437 U/L (15-37); Alanine Aminotransfer ALT/SGPT 244 U/L (16-61); Albumin, Serum 3.7 g/dL (3.2-5.0); Alkaline Phosphatase 287 U/L (45-117); Anion Gap 16 (5-15); BUN 11 mg/dL (7-18); BUN/Creat Ratio 13.1 RATIO (10-20); Calcium,Total 8.9 mg/dL (8.5-10.1); Chloride 92 mmol/L (98-107); Creatinine, Serum 0.84 mg/dL (0.70-1.30); EST Glomerular Filtration Rate 99 mL/min (>60); Est Glom Filt Rate - Afr Amer 120 mL/min (>60); Estimated Creatinine Clearance 98.25 ml/min; Globulin 4.1 g/dL (2.2-4.2); Glucose 99 mg/dL (74-106); Potassium 3.7 mmol/L (3.5-5.1); Protein, Total 7.8 g/dL (6.4-8.2); Sodium Level 126 mmol/L (136-145)
[2024-03-02] MEDS: Magnesium Sulfate 2 GM in Dextrose 5%-Water (100mL Bag) 100 ML IV (11:40)
--- NOTE | 2024-03-02 11:42 | ADDICTION ---
Met wit [facility] to complete RAMP assessments and D/c planning. Pt is currently pretty lethargic and incoherent and unable to make future d/c planning. Will complete d/c plan Monday.
[2024-03-02 11:59] LABS: Bedside Glucose 112 mg/dL (74-106)
[2024-03-02 13:03] LABS: Osmolality, Serum 318 mOsm/KG (275-295)
[2024-03-02] MEDS: Potassium Phosphate 21 MM in 0.9% Normal Saline (250mL Bag) 250 ML 84 MM IV (13:39)
[2024-03-02 17:01] LABS: Bedside Glucose 149 mg/dL (74-106)
[2024-03-02] MEDS: Atorvastatin Calcium 10 MG Tablet PO (20:28)
[2024-03-02] MEDS: RisperiDONE 1 MG Tablet 2 MG PO (20:28)
[2024-03-02 20:50] LABS: Bedside Glucose 122 mg/dL (74-106)
[2024-03-03] VITALS (8 sets, daily range): BP systolic 121–151; BP diastolic 83–91; PULSE 80–98; RESP 12–18; TEMP 36.5–36.8; O2SAT 96–100
[2024-03-03] MEDS: Phenobarbital 32.4 MG Tablet PO ×6 (01:05→20:48)
--- NOTE | 2024-03-03 06:30 | PN.HOSP_ITS ---
Reason for Visit Reason for Visit: Diagnoses Other pancytopenia (03/02/24) Other acidosis (03/02/24) Other specified metabolic disorders (03/02/24) Alcohol use, unspecified with intoxication, unspecified (03/02/24) Abnormal levels of other serum enzymes (03/02/24) Subjective Subjective Patient this morning feels improved since day prior, up and eating food initially, still having significant tremulousness but unfortunately this is part of his baseline ED even assist to eat. He notes his withdrawal symptoms have significantly improved since his initial ED presentation. Discussed his current labs with noted improvement since supplementation and initial likely hydration component. Patient denies fevers, chills, nausea, emesis, abdominal pain, chest pain or dyspnea. Objective Data Objective Data Vital Signs: Vital Signs Temp Pulse Resp BP Pulse Ox O2 Del Method 97.9 F 83 12 121/85 H 99 Room Air 03/03/24 01:01 03/03/24 01:01 03/03/24 01:01 03/03/24 01:01 03/03/24 01:01 03/03/24 01:01 Oxygen Delivery Method Room Air Weight: 198 lb 6.656 oz Body Mass Index (BMI) 32.0 Intake & Output: Intake and Output for Last 24 Hours 03/01/24 03/02/24 03/03/24 23:59 23:59 23:59 Intake Total 2236.83 / 2456.83 1220 / 1220 Balance 2236.83 / 2456.83 1220 / 1220 Lab / Micro Data 03/03/24 06:06 03/03/24 06:06 Labs: Laboratory Results - last 24 hr 03/02/24 05:30: POC Glucose 81 03/02/24 06:06: WBC 3.2 L, RBC 4.39 L, Hgb 11.8 L, Hct 35.5 L, MCV 80.9, MCH 26.9 L, MCHC 33.2, RDW Std Deviation 55.9 H, RDW Coeff of [place] 18.8 H, Plt Count 83 L, MPV 9.7, Immature Gran % (Auto) 0.600, Neut % (Auto) 68.5, Lymph % (Auto) 21.3, [place] % (Auto) 9.0, Eos % (Auto) 0.3, Baso % (Auto) 0.3, Absolute Neuts (auto) 2.2, Absolute Lymphs (auto) 0.69 L, Nucleated RBC % 0, Sodium 129 L, Potassium 3.6, Chloride 94 L, Carbon Dioxide 16.0 L, Anion Gap 19 H, BUN 11, Creatinine 0.76, Estim Creat Clear Calc 108.60, Est GFR (MDRD) Af Amer 135, Est GFR (MDRD) Non-Af 111, BUN/Creatinine Ratio 14.5, Glucose 78, Serum Osmolality 318 H, Calcium 8.8, Phosphorus 2.4 L, Magnesium 1.5 L, Total Bilirubin 2.00 H, A ST 434 H, ALT 241 H, Alkaline Phosphatase 267 H, Total Protein 7.4, Albumin 3.6, Globulin 3.8, Albumin/Globulin Ratio 0.9, Acetone Level NEGATIVE 03/02/24 10:06: Sodium 126 L, Potassium 3.7, Chloride 92 L, Carbon Dioxide 18.0 L, Anion Gap 16 H, BUN 11, Creatinine 0.84, Estim Creat Clear Calc 98.25, Est GFR (MDRD) Af Amer 120, Est GFR (MDRD) Non-Af 99, BUN/Creatinine Ratio 13.1, Glucose 99, Calcium 8.9, Total Bilirubin 2.10 H, AST 437 H, ALT 244 H, Alkaline Phosphatase 287 H, Total Protein 7.8, Albumin 3.7, Globulin 4.1, Albumin/Globulin Ratio 0.9 03/02/24 11:39: POC Glucose 112 H 03/02/24 16:40: POC Glucose 149 H 03/02/24 20:30: POC Glucose 122 H Physical Exam Narrative Physical Examination: General: Awake, alert, oriented x 3 and cooperative, seated upright in the MS bed, initially eating, remains tremulous but markedly improved since day prior. Skin: Normal color, normal turgor, no icterus, no cyanosis except very staged ecchymoses, bilateral lower extremity venous stasis skin changes. HEENT: AT/NC, EOMI, PERRLA, MMM. Lungs: Mildly diminished, greater bases, appropriate effort, no rales, ronchi or wheezing. Heart: Regular rate with regular rhythm; no gallop, rub audible. Abdomen: Soft, obese, NTTP, no appreciated distention, mildly hyperactive BS. Extremities: No cyanosis, no clubbing, no significant peripheral edema, see skin. Neurological: Patient awake, alert, oriented as noted, cognitive function intact; pupils equally reactive to light and accommodation, cranial nerves grossly normal, moving all 4 extremities, no focal deficits, strength improving but still remains moderately to severely globally decreased secondary to severity withdrawal symptoms, still mildly tremulous which is likely chronic component as well Psychiatric: Affect appears more interactive, notes feeling improved, no acute evidence of depressive or anxiety feelings. Assessment & Plan Assessment/Plan (1) Alcohol intoxication: PLAN: Plan The patient is a 59 y/o M w/ PMHx: EtOH abuse, Chronic hyponatremia secondary to EtOH abuse, Chronic anemia/thrombocytopenia/intermittent leukopenia secondary to likely EtOH abuse, HTN, GERD, Chronic EtOH hepatitis w/ EtOH related Cirrhosis w/ Hyperbilirubinemia/Transaminitis, BPH with obstructive symptoms, Anxiety and Depression/Bipolar disorder, GERMANIA, Diabetes mellitus type II who presents to the [facility] ED on 03/02/24 with history of 3 weeks of ongoing half gallon vodka daily with decision to present for alcohol withdrawal treatment with last drink approximately 11 PM evening prior to day of presentation. #1. Acute EtOH Withdrawal with associated electrolyte disturbances including hypomagnesemia, hypophosphatemia in addition to suspected anion gap metabolic acidosis felt likely secondary to starvation and alcoholic ketosis: Patient admitted to medical surgical floor, initially per report it appeared intoxicated but currently in overt withdrawal, currently maintained on protocol with taper course of Phenobarbital, as needed gabapentin, Catapres, Bentyl, Vistaril, IV fluids, IV antiemetics, Tylenol as needed for pain. Consulted Case management for assistance for transition to next level of rehabilitation care. Mag, phos pending. Maintain on CIWA protocol concurrently. 03/02/2024 evaluation with notable elevated CIWA scoring thus additional oral dose of phenobarbital and CIWA Ativan administered. Magnesium 1.5 with supplementation administered, 03/03/24 Mag 2.0. Phosphorus 2.4 with supplementation administered, 03/03/24 Phos 2.6, improved. Patient would benefit most from an inpatient rehab setting once discharge is appropriate. Will maintain on MVI, thiamine and folic acid. Admission CMP with anion gap 24 with repeat 03/02/2024 improvement to 19, glucose noted to be 112, given patient diabetic history to be cautious acetone level and osmolality with acetone noted to be negative, serum osmolality however mildly elevated 318 but 8/25/24 improving, CMP with sodium 141, potassium 3.8, chloride 97, carbon oxide 19, anion gap 15, BUN/creatinine 13/0.79, glucose 119. #2. Acute alcoholic hepatitis on chronic with hyperbilirubinemia: Admission CMP with total bilirubin 2.0, AST/ALT 490/263, alk phos 283, continue treatment as noted above, 03/02/24 Total bilirubin 2.0, AST/ALT 434/241, alk phos 267-->03/03/24 total bilirubin 1.30, AST/ALT 293/198, alk phos 259, improving, continue to trend. #3. Pancytopenia, noted chronic component as well, likely secondary to marrow toxicity related to alcohol abuse: Admission CBC with WBC 3.4, hemoglobin 12.7, MCV 80.5, platelet 106 with increased immature granulocytes with repeat 03/02/24 CBC with WBC 3.2, hemoglobin 11.8, MCV 80.9, platelet 83-> 03/03/24 CBC with WBC 3.8, hemoglobin 10.5, platelets 66, trending. #4. Hyponatremia, chronic: Likely secondary to alcohol abuse, poor intake, admission sodium initially 131, repeat 129, judiciously hydrated in the ED, 03/03/24 Na 131. #5. Diabetes mellitus type II with anion gap metabolic acidosis, felt likely secondary to or likely starvation alcoholic ketosis: Hold oral home regimen, ADA diet, accu checks w/ ISS, to be cautious however obtained acetone level upon presentation which was negative, serum MOLALITY was mildly elevated 318, repeat CMP this a.m. with anion gap normalized. Last hemoglobin A1c noted 10/27/23 6.9%, repeat requested. #6. Hypertension: Continue home regimen including amlodipine, lisinopril, metoprolol, PRN hydralazine. #7. Hyperlipidemia: Not on statin therapy, defer especially given hyperbilirubinemia/transaminitis. #8. Anxiety and depression/bipolar disorder: Will continue home risperidone, duloxetine and bupropion regimen. Would benefit from aggressive outpatient evaluation and treatments to be ongoing is likely contributing to alcohol abuse history. #9. BPH with obstructive pattern: Patient with chronic urinary frequency, no evidence of acute obstruction currently, will continue patient on Flomax regimen. #10. GERD: We will continue patient on PPI. #11. DVT prophylaxis: D/C lovenox given plts decreasing as noted. #12. CODE STATUS: Full Code status. Charges/Coding Visit Charges Inpatient E&M: 64873 Subs Hosp L2
[2024-03-03 06:43] LABS: Absolute Lymphocyte Count 0.89 X10^3/uL (0.83-4.51); Absolute Neutrophil Count 2.5 X10^3/uL (2.0-7.7); Basophil# 0.02 X10^3/uL; Basophil% 0.5 % (0-1); Eosinophil# 0.11 X10^3/uL; Eosinophils% 2.9 % (0-5); Hematocrit 32.2 % (40-54); Hemoglobin 10.5 g/dL (13.0-16.5); Lymphocyte # 0.89 X10^3/ul (0.83-4.51); Lymphocyte % 23.5 % (19-41); Mean Corp Hgb Conc 32.6 g/dL (32-36); Mean Corpuscular Hgb 27.1 pg (27.0-32.0); Mean Platelet Vol. 9.7 fl (6.2-12.0); Monocyte# 0.21 X10^3/uL; Monocyte% 5.6 % (0-10); NRBC Flagged by Analyzer 0 % (0-5); Neutrophil # 2.52 X10^3/uL (2.7-7.7); Neutrophil % 66.7 % (47-70); POSITIVE COUNT YES; Platelet Count 66 K/mm3 (150-450); RBC Distribution Width CV 18.9 % (11.6-14.6); RBC Distribution Width SD 57.1 fl (35.1-43.9); Red Blood Count 3.88 M/mm3 (4.6-6.2); White Blood Count 3.8 K/mm3 (4.4-11.0)
[2024-03-03 06:46] LABS: Differential Indicated SCAN CRITERIA MET
[2024-03-03 07:16] LABS: Bedside Glucose 110 mg/dL (74-106)
[2024-03-03 07:48] LABS: Differential Comment SCANNED; Platelet Estimate MOD DEC (ADEQ)
[2024-03-03 08:04] LABS: ALB/GLOB Ratio 0.9 RATIO (0.9-2.4); AST(SGOT) 293 U/L (15-37); Alanine Aminotransfer ALT/SGPT 198 U/L (16-61); Albumin, Serum 3.2 g/dL (3.2-5.0); Alkaline Phosphatase 259 U/L (45-117); Anion Gap 15 (5-15); BUN 13 mg/dL (7-18); BUN/Creat Ratio 16.4 RATIO (10-20); Calcium,Total 8.3 mg/dL (8.5-10.1); Chloride 97 mmol/L (98-107); Creatinine, Serum 0.79 mg/dL (0.70-1.30); EST Glomerular Filtration Rate 106 mL/min (>60); Est Glom Filt Rate - Afr Amer 128 mL/min (>60); Estimated Creatinine Clearance 104.47 ml/min; Globulin 3.6 g/dL (2.2-4.2); Glucose 119 mg/dL (74-106); Phosphorus 2.6 mg/dL (2.5-4.9); Potassium 3.8 mmol/L (3.5-5.1); Protein, Total 6.8 g/dL (6.4-8.2); Sodium Level 131 mmol/L (136-145)
[2024-03-03] MEDS: LORazepam 1 MG Tablet 2 MG PO ×3 (08:15→20:49)
[2024-03-03] MEDS: Magnesium Chloride 64 MG Delay Rel.Tablet PO (08:16)
[2024-03-03] MEDS: amLODIPine 10 MG Tablet PO (08:16)
[2024-03-03] MEDS: Metoprolol(XL)Succ 50 MG Tablet PO (08:16)
[2024-03-03] MEDS: Multivitamins,Ther W-Minerals Tablet 1 TABLET PO (08:17)
[2024-03-03] MEDS: Pantoprazole Sodium 40 MG Tablet PO (08:17)
[2024-03-03] MEDS: buPROPion (XL) 300 MG TABLET.XL PO (08:17)
[2024-03-03] MEDS: Tamsulosin HCl 0.4 MG Capsule PO ×2 (08:17→20:48)
[2024-03-03] MEDS: DULoxetine Hcl 60 MG Capsule PO (08:17)
[2024-03-03] MEDS: Thiamine Hydrochloride 100 MG Tablet PO (08:17)
[2024-03-03] MEDS: Folic Acid 1 MG Tablet PO (08:17)
[2024-03-03] MEDS: Lisinopril 40 MG Tablet PO (08:18)
[2024-03-03 08:36] LABS: Amphetamine Urine VISTA NEGATIVE (<1000 ng/mL); Barbiturate Urine VISTA POSITIVE (< 200 ng/mL); Benzodiazepine Urine VISTA NEGATIVE (< 200 ng/mL); Cocaine Urine VISTA NEGATIVE (< 300 ng/mL); Ecstacy Urine VISTA POSITIVE (< 500 ng/mL); Methadone Urine VISTA NEGATIVE (< 300 ng/mL); PCP Urine VISTA NEGATIVE (< 25 ng/mL); THC Urine VISTA NEGATIVE (< 50 ng/mL); Vista UDS pH Range 5
[2024-03-03 12:22] LABS: Bedside Glucose 160 mg/dL (74-106)
[2024-03-03] MEDS: Insulin Lispro 100 UNIT/ML INSULN.PEN SC (16:39)
[2024-03-03] MEDS: Atorvastatin Calcium 10 MG Tablet PO (20:48)
[2024-03-03] MEDS: Loperamide 2 MG Capsule PO (20:49)
[2024-03-03] MEDS: RisperiDONE 1 MG Tablet 2 MG PO (20:49)
[2024-03-03 21:47] LABS: Bedside Glucose 157 mg/dL (74-106)
[2024-03-04] VITALS (8 sets, daily range): BP systolic 131–152; BP diastolic 81–97; PULSE 82–93; RESP 14–18; TEMP 36.4–37.1; O2SAT 98–100
[2024-03-04] MEDS: LORazepam 1 MG Tablet 2 MG PO (00:23)
[2024-03-04] MEDS: Loperamide 2 MG Capsule PO (00:26)
[2024-03-04] MEDS: Phenobarbital 32.4 MG Tablet PO ×5 (00:26→18:16)
[2024-03-04 06:03] LABS: Bedside Glucose 213 mg/dL (74-106)
[2024-03-04 07:13] LABS: Bedside Glucose 119 mg/dL (74-106)
[2024-03-04 07:38] LABS: Absolute Lymphocyte Count 0.66 X10^3/uL (0.83-4.51); Absolute Neutrophil Count 1.8 X10^3/uL (2.0-7.7); Basophil# 0.01 X10^3/uL; Basophil% 0.4 % (0-1); Eosinophil# 0.09 X10^3/uL; Eosinophils% 3.3 % (0-5); Hematocrit 32.9 % (40-54); Hemoglobin 10.9 g/dL (13.0-16.5); Lymphocyte # 0.66 X10^3/ul (0.83-4.51); Lymphocyte % 24.4 % (19-41); Mean Corp Hgb Conc 33.1 g/dL (32-36); Mean Corpuscular Hgb 27.3 pg (27.0-32.0); Mean Corpuscular Volume 82.5 fL (80-94); Mean Platelet Vol. 10.4 fl (6.2-12.0); Monocyte# 0.15 X10^3/uL; Monocyte% 5.6 % (0-10); NRBC Flagged by Analyzer 0 % (0-5); Neutrophil # 1.76 X10^3/uL (2.7-7.7); Neutrophil % 65.2 % (47-70); POSITIVE COUNT YES; Platelet Count 68 K/mm3 (150-450); RBC Distribution Width CV 18.2 % (11.6-14.6); RBC Distribution Width SD 55.4 fl (35.1-43.9); Red Blood Count 3.99 M/mm3 (4.6-6.2); White Blood Count 2.7 K/mm3 (4.4-11.0)
[2024-03-04 08:54] LABS: ALB/GLOB Ratio 0.9 RATIO (0.9-2.4); AST(SGOT) 231 U/L (15-37); Alanine Aminotransfer ALT/SGPT 181 U/L (16-61); Albumin, Serum 3.4 g/dL (3.2-5.0); Alkaline Phosphatase 268 U/L (45-117); Anion Gap 12 (5-15); BUN 8 mg/dL (7-18); BUN/Creat Ratio 14.2 RATIO (10-20); Calcium,Total 8.9 mg/dL (8.5-10.1); Chloride 98 mmol/L (98-107); Creatinine, Serum 0.56 mg/dL (0.70-1.30); EST Glomerular Filtration Rate 157 mL/min (>60); Est Glom Filt Rate - Afr Amer 189 mL/min (>60); Estimated Creatinine Clearance 147.38 ml/min; Globulin 3.8 g/dL (2.2-4.2); Glucose 119 mg/dL (74-106); Potassium 3.1 mmol/L (3.5-5.1); Protein, Total 7.2 g/dL (6.4-8.2); Sodium Level 132 mmol/L (136-145)
[2024-03-04] MEDS: Magnesium Chloride 64 MG Delay Rel.Tablet PO (09:05)
[2024-03-04] MEDS: amLODIPine 10 MG Tablet PO (09:05)
[2024-03-04] MEDS: Multivitamins,Ther W-Minerals Tablet 1 TABLET PO (09:05)
[2024-03-04] MEDS: Lisinopril 40 MG Tablet PO (09:05)
[2024-03-04] MEDS: Pantoprazole Sodium 40 MG Tablet PO (09:05)
[2024-03-04] MEDS: Tamsulosin HCl 0.4 MG Capsule PO ×2 (09:06→22:10)
[2024-03-04] MEDS: Thiamine Hydrochloride 100 MG Tablet PO (09:06)
[2024-03-04] MEDS: Folic Acid 1 MG Tablet PO (09:06)
[2024-03-04] MEDS: DULoxetine Hcl 60 MG Capsule PO (09:06)
[2024-03-04] MEDS: chlordiazePOXIDE 25 MG Capsule PO ×3 (09:06→22:10)
[2024-03-04] MEDS: Metoprolol(XL)Succ 50 MG Tablet PO (09:06)
[2024-03-04] MEDS: buPROPion (XL) 300 MG TABLET.XL PO (09:06)
[2024-03-04 10:23] LABS: Hemoglobin A1c 5.5 % (3.8-5.6)
[2024-03-04] MEDS: Nystatin Powder 15gm Bottle 1 APPLIC TOPICAL ×2 (11:14→21:55)
[2024-03-04] MEDS: Menthol/Lanolin/Calamine/Znox 113 GM Tube 1 APPLIC TOPICAL ×2 (11:14→21:54)
[2024-03-04 11:36] LABS: Bedside Glucose 148 mg/dL (74-106)
--- NOTE | 2024-03-04 11:49 | PN.HOSP_ITS ---
Subjective Subjective Having recurrent hallucinations requiring Ativan intermittently per report. CIWA score of 10 Objective Data Objective Data Vital Signs: Vital Signs Temp Pulse Resp BP Pulse Ox O2 Del Method 98.8 F 89 16 131/81 H 98 Room Air 03/04/24 10:04 03/04/24 10:04 03/04/24 10:04 03/04/24 10:04 03/04/24 10:04 03/04/24 10:07 Oxygen Delivery Method Room Air Weight: 198 lb 6.656 oz Body Mass Index (BMI) 32.0 Intake & Output: Intake and Output for Last 24 Hours 03/03/24 03/04/24 03/05/24 03:59 03:59 03:59 Intake Total 2456.83 / 2456.83 2000 / 1999 150 / 150 Output Total 700 / 700 1100 / 1100 Balance 2456.83 / 2456.83 1300 / 1300 -950 / -950 Lab / Micro Data 03/04/24 07:06 03/04/24 07:06 Labs: Laboratory Results - last 24 hr 03/03/24 12:04: POC Glucose 160 H 03/03/24 16:28: POC Glucose 213 H 03/03/24 20:46: POC Glucose 157 H 03/04/24 06:55: POC Glucose 119 H 03/04/24 07:06: WBC 2.7 L, RBC 3.99 L, Hgb 10.9 L, Hct 32.9 L, MCV 82.5, MCH 27.3, MCHC 33.1, RDW Std Deviation 55.4 H, RDW Coeff of [place] 18.2 H, Plt Count 68 L, MPV 10.4, Immature Gran % (Auto) 1.100 H, Neut % (Auto) 65.2, Lymph % (Auto) 24.4, [place] % (Auto) 5.6, Eos % (Auto) 3.3, Baso % (Auto) 0.4, Absolute Neuts (auto) 1.8 L, Absolute Lymphs (auto) 0.66 L, Nucleated RBC % 0, Sodium 132 L, P otassium 3.1 L, Chloride 98, Carbon Dioxide 22.0, Anion Gap 12, BUN 8, C reatinine 0.56 L, Estim Creat Clear Calc 147.38, Est GFR (MDRD) Af Amer 189, Est GFR (MDRD) Non-Af 157, BUN/Creatinine Ratio 14.2, Glucose 119 H, Hemoglobin A1c 5.5, Calcium 8.9, Total Bilirubin 1.20 H, AST 231 H, ALT 181 H, Alkaline Phosphatase 268 H, Total Protein 7.2, Albumin 3.4, Globulin 3.8, Albumin/Globulin Ratio 0.9 03/04/24 11:13: POC Glucose 148 H Physical Exam Narrative General: Alert, Oriented x3, Cooperative, tremors HEENT: Atraumatic, PERRLA, EOMI, Normocephalic Oral: Moist Mucosa Neck: Supple, No JVD Lungs: Diminished, Normal air movement, No rhonchi, No wheeze, No rales Cardiovascular: Regular rate, Regular Rhythm, Normal S1, Normal S2, No murmurs Abdomen: Soft, Non Tender, Non-Distended, No Hepato-splenomegaly Extremities: No edema, Capillary Refill Less than 3 Seconds Skin: No rashes, No breakdown Musculoskeletal: No Tenderness to Palpation of Joints or Extremities Neurological: No focal neurological deficits, Motor Exam 5/5 strength throughout, Sensory exam intact to light touch and pain Psych/Mental Status: Flat Assessment & Plan Assessment/Plan (1) Alcohol intoxication: PLAN: Plan 1. Acute alcohol withdrawal/acute alcoholic hepatitis with chronic hyperbilirubinemia/chronic pancytopenia ? Continue with the alcohol withdrawal protocol ? Given the intermittent dosing of Ativan will place him on Librium, I am aware of his slightly elevated LFTs, will monitor ? Plan for outpatient follow-up with 180 2. Essential HTN/HLD ? Blood pressures are stable ? Continue with his home medications ? Will monitor make adjustments as necessary 3. DM2 ? Stable, will hold his home medications ? Sliding scale insulin ? Accu-Cheks ACHS ? Will monitor make adjustments as necessary 4. Anxiety/depression/bipolar disorder ? Stable ? Continue with his home medications 5. BPH with obstructive pattern ? Chronic urinary frequency ? No acute obstruction?continue Flomax 6. GERD ? Stable ? Continue with PPI DVT: SCDs Charges/Coding Visit Charges Inpatient E&M: 74006 Subs Hosp L2
[2024-03-04 16:46] LABS: Bedside Glucose 131 mg/dL (74-106)
[2024-03-04] MEDS: Atorvastatin Calcium 10 MG Tablet PO (22:09)
[2024-03-04] MEDS: RisperiDONE 1 MG Tablet 2 MG PO (22:10)
[2024-03-04 22:18] LABS: Bedside Glucose 158 mg/dL (74-106)
[2024-03-05] VITALS (8 sets, daily range): BP systolic 122–139; BP diastolic 63–97; PULSE 74–97; RESP 12–20; TEMP 36.1–37.1; O2SAT 97–100
[2024-03-05] MEDS: Phenobarbital 32.4 MG Tablet PO ×4 (01:20→19:46)
[2024-03-05] MEDS: chlordiazePOXIDE 25 MG Capsule PO ×3 (06:33→21:47)
[2024-03-05 06:54] LABS: Bedside Glucose 124 mg/dL (74-106)
--- NOTE | 2024-03-05 08:46 | NURSING ---
Upon morning rounds and attempt to give 0700 phenobarbital patient was extremely lethargic and unable to take am dose of phenobarbital. Spoke w/ RN, upon nursing judgement, held morning dose of phenobarb d/t prn ativan being on board if need be.
[2024-03-05] MEDS: Folic Acid 1 MG Tablet PO (09:54)
[2024-03-05] MEDS: Pantoprazole Sodium 40 MG Tablet PO (09:54)
[2024-03-05] MEDS: buPROPion (XL) 300 MG TABLET.XL PO (09:54)
[2024-03-05] MEDS: Tamsulosin HCl 0.4 MG Capsule PO ×2 (09:54→21:41)
[2024-03-05] MEDS: amLODIPine 10 MG Tablet PO (09:54)
[2024-03-05] MEDS: Magnesium Chloride 64 MG Delay Rel.Tablet PO (09:54)
[2024-03-05] MEDS: DULoxetine Hcl 60 MG Capsule PO (09:54)
[2024-03-05] MEDS: Thiamine Hydrochloride 100 MG Tablet PO (09:54)
[2024-03-05] MEDS: Metoprolol(XL)Succ 50 MG Tablet PO (09:54)
[2024-03-05] MEDS: Lisinopril 40 MG Tablet PO (09:54)
[2024-03-05] MEDS: Multivitamins,Ther W-Minerals Tablet 1 TABLET PO (09:54)
[2024-03-05] MEDS: 0.9% Normal Saline (1000mL) 1,000 ML 100 ML IV ×2 (09:55→19:46)
[2024-03-05] MEDS: Nystatin Powder 15gm Bottle 1 APPLIC TOPICAL ×2 (09:55→21:44)
[2024-03-05] MEDS: Menthol/Lanolin/Calamine/Znox 113 GM Tube 1 APPLIC TOPICAL ×2 (09:55→21:38)
[2024-03-05 10:25] LABS: ALB/GLOB Ratio 0.9 RATIO (0.9-2.4); AST(SGOT) 175 U/L (15-37); Alanine Aminotransfer ALT/SGPT 163 U/L (16-61); Albumin, Serum 3.3 g/dL (3.2-5.0); Alkaline Phosphatase 232 U/L (45-117); Anion Gap 14 (5-15); BUN 13 mg/dL (7-18); BUN/Creat Ratio 17.4 RATIO (10-20); Calcium,Total 9.4 mg/dL (8.5-10.1); Chloride 97 mmol/L (98-107); Creatinine, Serum 0.75 mg/dL (0.70-1.30); EST Glomerular Filtration Rate 114 mL/min (>60); Est Glom Filt Rate - Afr Amer 137 mL/min (>60); Estimated Creatinine Clearance 110.04 ml/min; Globulin 3.8 g/dL (2.2-4.2); Glucose 120 mg/dL (74-106); Potassium 3.5 mmol/L (3.5-5.1); Protein, Total 7.1 g/dL (6.4-8.2); Sodium Level 133 mmol/L (136-145)
[2024-03-05 11:36] LABS: Bedside Glucose 149 mg/dL (74-106)
--- NOTE | 2024-03-05 11:55 | PN.HOSP_ITS ---
Subjective Subjective Started Librium yesterday secondary to his hallucinations, CIWA score today is 13. LFTs continue to improve Objective Data Objective Data Vital Signs: Vital Signs Temp Pulse Resp BP Pulse Ox O2 Del Method 97 F L 80 12 138/78 H 97 Room Air 03/05/24 10:00 03/05/24 10:00 03/05/24 10:00 03/05/24 10:00 03/05/24 10:00 03/05/24 10:00 Oxygen Delivery Method Room Air Weight: 198 lb 6.656 oz Body Mass Index (BMI) 32.0 Intake & Output: Intake and Output for Last 24 Hours 03/04/24 03/05/24 03/06/24 03:59 03:59 03:59 Intake Total 2000 / 1999 550 / 550 360 / 360 Output Total 700 / 700 3150 / 3150 Balance 1300 / 1300 -2600 / -2600 360 / 360 Lab / Micro Data 03/04/24 07:06 03/05/24 07:19 Labs: Laboratory Results - last 24 hr 03/04/24 16:28: POC Glucose 131 H 03/04/24 21:57: POC Glucose 158 H 03/05/24 06:33: POC Glucose 124 H 03/05/24 07:19: Sodium 133 L, Potassium 3.5, Chloride 97 L, Carbon Dioxide 22.0, Anion Gap 14, BUN 13, Creatinine 0.75, Estim Creat Clear Calc 110.04, Est GFR (MDRD) Af Amer 137, Est GFR (MDRD) Non-Af 114, BUN/Creatinine Ratio 17.4, G lucose 120 H, Calcium 9.4, Total Bilirubin 0.90, AST 175 H, ALT 163 H, Alkaline Phosphatase 232 H, Total Protein 7.1, Albumin 3.3, Globulin 3.8, Albumin/Globulin Ratio 0.9 03/05/24 11:16: POC Glucose 149 H Physical Exam Narrative General: Alert, Oriented x3, Cooperative, tremors HEENT: Atraumatic, PERRLA, EOMI, Normocephalic Oral: Moist Mucosa Neck: Supple, No JVD Lungs: Diminished, Normal air movement, No rhonchi, No wheeze, No rales Cardiovascular: Regular rate, Regular Rhythm, Normal S1, Normal S2, No murmurs Abdomen: Soft, Non Tender, Non-Distended, No Hepato-splenomegaly Extremities: No edema, Capillary Refill Less than 3 Seconds Skin: No rashes, No breakdown Musculoskeletal: No Tenderness to Palpation of Joints or Extremities Neurological: No focal neurological deficits, Motor Exam 5/5 strength throughout, Sensory exam intact to light touch and pain Psych/Mental Status: Flat Assessment & Plan Assessment/Plan (1) Alcohol intoxication: PLAN: Plan 1. Acute alcohol withdrawal/acute alcoholic hepatitis with chronic hyperbilirubinemia/chronic pancytopenia ? Continue with the alcohol withdrawal protocol ? Given the intermittent dosing of Ativan will place him on Librium, I am aware of his slightly elevated LFTs, will monitor. He was able to get some sleep overnight may decrease Librium to twice a day tomorrow depending on how he responds ? Plan for outpatient follow-up with 180 2. Essential HTN/HLD ? Blood pressures are stable ? Continue with his home medications ? Will monitor make adjustments as necessary 3. DM2 ? Stable, will hold his home medications ? Sliding scale insulin ? Accu-Cheks ACHS ? Will monitor make adjustments as necessary 4. Anxiety/depression/bipolar disorder ? Stable ? Continue with his home medications 5. BPH with obstructive pattern ? Chronic urinary frequency ? No acute obstruction?continue Flomax 6. GERD ? Stable ? Continue with PPI DVT: SCDs Charges/Coding Visit Charges Inpatient E&M: 59507 Subs Hosp L2
--- NOTE | 2024-03-05 13:42 | NURSING ---
note for work 03/04 to 03/06.
[2024-03-05 16:37] LABS: Bedside Glucose 188 mg/dL (74-106)
[2024-03-05] MEDS: Insulin Lispro 100 UNIT/ML INSULN.PEN SC ×2 (17:23→21:40)
[2024-03-05] MEDS: Atorvastatin Calcium 10 MG Tablet PO (21:42)
[2024-03-05] MEDS: RisperiDONE 1 MG Tablet 2 MG PO (21:48)
[2024-03-05 22:02] LABS: Bedside Glucose 169 mg/dL (74-106)
[2024-03-06] VITALS (8 sets, daily range): BP systolic 139–171; BP diastolic 92–100; PULSE 71–91; RESP 16–20; TEMP 36.3–36.6; O2SAT 96–100
[2024-03-06] MEDS: Phenobarbital 32.4 MG Tablet PO ×2 (00:36→06:32)
[2024-03-06] MEDS: LORazepam 2 MG/ML Syringe IV (00:37)
[2024-03-06] MEDS: 0.9% Normal Saline (1000mL) 1,000 ML 100 ML IV ×2 (05:15→16:54)
[2024-03-06] MEDS: chlordiazePOXIDE 25 MG Capsule PO ×3 (05:15→22:42)
[2024-03-06 07:11] LABS: Bedside Glucose 146 mg/dL (74-106)
[2024-03-06] MEDS: DULoxetine Hcl 60 MG Capsule PO (08:45)
[2024-03-06] MEDS: Menthol/Lanolin/Calamine/Znox 113 GM Tube 1 APPLIC TOPICAL ×2 (08:45→22:35)
[2024-03-06] MEDS: Tamsulosin HCl 0.4 MG Capsule PO ×2 (08:46→22:35)
[2024-03-06] MEDS: Magnesium Chloride 64 MG Delay Rel.Tablet PO (08:47)
[2024-03-06] MEDS: Folic Acid 1 MG Tablet PO (08:47)
[2024-03-06] MEDS: Thiamine Hydrochloride 100 MG Tablet PO (08:47)
[2024-03-06] MEDS: buPROPion (XL) 300 MG TABLET.XL PO (08:47)
[2024-03-06] MEDS: Multivitamins,Ther W-Minerals Tablet 1 TABLET PO (08:48)
[2024-03-06] MEDS: Nystatin Powder 15gm Bottle 1 APPLIC TOPICAL ×2 (08:48→22:34)
[2024-03-06] MEDS: Pantoprazole Sodium 40 MG Tablet PO (08:48)
[2024-03-06] MEDS: Metoprolol(XL)Succ 50 MG Tablet PO (08:48)
[2024-03-06] MEDS: Lisinopril 40 MG Tablet PO (08:49)
[2024-03-06] MEDS: amLODIPine 10 MG Tablet PO (08:49)
--- NOTE | 2024-03-06 09:55 | PN.HOSP_ITS ---
Subjective Subjective CIWA score of 9 today, no issues overnight Objective Data Objective Data Vital Signs: Vital Signs Temp Pulse Resp BP Pulse Ox O2 Del Method 97.7 F L 71 18 171/100 H 99 Room Air 03/06/24 08:33 03/06/24 08:48 03/06/24 08:33 03/06/24 08:48 03/06/24 08:33 03/06/24 08:33 Oxygen Delivery Method Room Air Weight: 198 lb 6.656 oz Body Mass Index (BMI) 32.0 Intake & Output: Intake and Output for Last 24 Hours 03/05/24 03/06/24 03/07/24 03:59 03:59 03:59 Intake Total 550 / 550 1345 / 1345 948.33 / 948.33 Output Total 3150 / 3150 100 / 100 Balance -2600 / -2600 1345 / 1345 848.33 / 848.33 Lab / Micro Data 03/04/24 07:06 03/05/24 07:19 Labs: Laboratory Results - last 24 hr 03/05/24 07:19: Sodium 133 L, Potassium 3.5, Chloride 97 L, Carbon Dioxide 22.0, Anion Gap 14, BUN 13, Creatinine 0.75, Estim Creat Clear Calc 110.04, Est GFR (MDRD) Af Amer 137, Est GFR (MDRD) Non-Af 114, BUN/Creatinine Ratio 17.4, G lucose 120 H, Calcium 9.4, Total Bilirubin 0.90, AST 175 H, ALT 163 H, Alkaline Phosphatase 232 H, Total Protein 7.1, Albumin 3.3, Globulin 3.8, Albumin/Globulin Ratio 0.9 03/05/24 11:16: POC Glucose 149 H 03/05/24 16:12: POC Glucose 188 H 03/05/24 21:25: POC Glucose 169 H 03/06/24 06:36: POC Glucose 146 H Physical Exam Narrative General: Alert, Oriented x3, Cooperative, tremors HEENT: Atraumatic, PERRLA, EOMI, Normocephalic Oral: Moist Mucosa Neck: Supple, No JVD Lungs: Diminished, Normal air movement, No rhonchi, No wheeze, No rales Cardiovascular: Regular rate, Regular Rhythm, Normal S1, Normal S2, No murmurs Abdomen: Soft, Non Tender, Non-Distended, No Hepato-splenomegaly Extremities: No edema, Capillary Refill Less than 3 Seconds Skin: No rashes, No breakdown Musculoskeletal: No Tenderness to Palpation of Joints or Extremities Neurological: No focal neurological deficits, Motor Exam 5/5 strength throughout, Sensory exam intact to light touch and pain Psych/Mental Status: Flat Assessment & Plan Assessment/Plan (1) Alcohol intoxication: PLAN: Plan 1. Acute alcohol withdrawal/acute alcoholic hepatitis with chronic hyperbilirubinemia/chronic pancytopenia ? Continue with the alcohol withdrawal protocol ? Given the intermittent dosing of Ativan will place him on Librium, I am aware of his slightly elevated LFTs, will monitor ? Plan for outpatient follow-up with 180 2. Essential HTN/HLD ? Blood pressures are stable ? Continue with his home medications ? Will monitor make adjustments as necessary 3. DM2 ? Stable, will hold his home medications ? Sliding scale insulin ? Accu-Cheks ACHS ? Will monitor make adjustments as necessary 4. Anxiety/depression/bipolar disorder ? Stable ? Continue with his home medications 5. BPH with obstructive pattern ? Chronic urinary frequency ? No acute obstruction?continue Flomax 6. GERD ? Stable ? Continue with PPI DVT: SCDs Charges/Coding Visit Charges Inpatient E&M: 73606 Subs Hosp L2
[2024-03-06] MEDS: Insulin Lispro 100 UNIT/ML INSULN.PEN SC ×2 (12:02→16:55)
[2024-03-06] MEDS: Gabapentin 300 MG Capsule PO ×2 (12:06→23:03)
[2024-03-06] MEDS: hydrOXYzine PAM 25 MG Capsule 50 MG PO (12:06)
[2024-03-06 12:28] LABS: Bedside Glucose 215 mg/dL (74-106)
[2024-03-06 17:12] LABS: Bedside Glucose 154 mg/dL (74-106)
[2024-03-06] MEDS: RisperiDONE 1 MG Tablet 2 MG PO (22:34)
[2024-03-06] MEDS: Atorvastatin Calcium 10 MG Tablet PO (22:35)
[2024-03-07 02:00] VITALS: BP 142/98; PULSE 84; PULSE 85; RESP 16; TEMP 36.6; O2SAT 99
[2024-03-07] MEDS: 0.9% Normal Saline (1000mL) 1,000 ML 100 ML IV ×2 (02:35→15:07)
[2024-03-07] MEDS: chlordiazePOXIDE 25 MG Capsule PO ×2 (05:27→23:08)
[2024-03-07 07:30] LABS: ALB/GLOB Ratio 0.8 RATIO (0.9-2.4); AST(SGOT) 89 U/L (15-37); Alanine Aminotransfer ALT/SGPT 118 U/L (16-61); Albumin, Serum 2.9 g/dL (3.2-5.0); Alkaline Phosphatase 204 U/L (45-117); Anion Gap 8 (5-15); BUN 11 mg/dL (7-18); BUN/Creat Ratio 14.4 RATIO (10-20); Calcium,Total 8.3 mg/dL (8.5-10.1); Chloride 105 mmol/L (98-107); Creatinine, Serum 0.76 mg/dL (0.70-1.30); EST Glomerular Filtration Rate 111 mL/min (>60); Est Glom Filt Rate - Afr Amer 134 mL/min (>60); Globulin 3.5 g/dL (2.2-4.2); Glucose 149 mg/dL (74-106); Potassium 3.1 mmol/L (3.5-5.1); Protein, Total 6.4 g/dL (6.4-8.2); Sodium Level 137 mmol/L (136-145)
[2024-03-07 07:31] LABS: Bedside Glucose 140 mg/dL (74-106)
[2024-03-07 08:00] VITALS: BP 136/101; PULSE 87; RESP 16; TEMP 36.5; O2SAT 99
[2024-03-07] MEDS: Multivitamins,Ther W-Minerals Tablet 1 TABLET PO (08:46)
[2024-03-07] MEDS: Tamsulosin HCl 0.4 MG Capsule PO ×2 (08:46→22:57)
[2024-03-07] MEDS: Lisinopril 40 MG Tablet PO (08:46)
[2024-03-07] MEDS: DULoxetine Hcl 60 MG Capsule PO (08:46)
[2024-03-07] MEDS: Thiamine Hydrochloride 100 MG Tablet PO (08:47)
[2024-03-07] MEDS: amLODIPine 10 MG Tablet PO (08:47)
[2024-03-07] MEDS: Magnesium Chloride 64 MG Delay Rel.Tablet PO (08:47)
[2024-03-07] MEDS: Folic Acid 1 MG Tablet PO (08:47)
[2024-03-07] MEDS: buPROPion (XL) 300 MG TABLET.XL PO (08:48)
[2024-03-07] MEDS: Pantoprazole Sodium 40 MG Tablet PO (08:48)
--- NOTE | 2024-03-07 11:22 | PN.HOSP_ITS ---
Subjective Subjective CIWA score 4 today, slowly improving Objective Data Objective Data Vital Signs: Vital Signs Temp Pulse Resp BP Pulse Ox O2 Del Method 97.7 F L 87 16 136/101 H 99 Room Air 03/07/24 08:00 03/07/24 08:00 03/07/24 08:00 03/07/24 08:00 03/07/24 08:00 03/07/24 09:00 Oxygen Delivery Method Room Air Weight: 198 lb 6.656 oz Body Mass Index (BMI) 32.0 Intake & Output: Intake and Output for Last 24 Hours 03/06/24 03/07/24 03/08/24 03:59 03:59 03:59 Intake Total 1345 / 1345 4536.66 / 4536.66 Output Total 4000 / 4000 Balance 1345 / 1345 536.66 / 536.66 Lab / Micro Data 03/04/24 07:06 03/07/24 06:36 Labs: Laboratory Results - last 24 hr 03/06/24 11:57: POC Glucose 215 H 03/06/24 16:24: POC Glucose 154 H 03/07/24 06:36: Sodium 137, Potassium 3.1 L, Chloride 105, Carbon Dioxide 24.0, Anion Gap 8, BUN 11, Creatinine 0.76, Estim Creat Clear Calc 108.60, Est GFR (MDRD) Af Amer 134, Est GFR (MDRD) Non-Af 111, BUN/Creatinine Ratio 14.4, G lucose 149 H, Calcium 8.3 L, Total Bilirubin 0.50, AST 89 H, ALT 118 H, Alkaline Phosphatase 204 H, Total Protein 6.4, Albumin 2.9 L, Globulin 3.5, A lbumin/Globulin Ratio 0.8 L 03/07/24 07:04: POC Glucose 140 H Physical Exam Narrative General: Alert, Oriented x3, Cooperative, tremors HEENT: Atraumatic, PERRLA, EOMI, Normocephalic Oral: Moist Mucosa Neck: Supple, No JVD Lungs: Diminished, Normal air movement, No rhonchi, No wheeze, No rales Cardiovascular: Regular rate, Regular Rhythm, Normal S1, Normal S2, No murmurs Abdomen: Soft, Non Tender, Non-Distended, No Hepato-splenomegaly Extremities: No edema, Capillary Refill Less than 3 Seconds Skin: No rashes, No breakdown Musculoskeletal: No Tenderness to Palpation of Joints or Extremities Neurological: No focal neurological deficits, Motor Exam 5/5 strength throughout, Sensory exam intact to light touch and pain Psych/Mental Status: Flat Assessment & Plan Assessment/Plan (1) Alcohol intoxication: PLAN: Plan 1. Acute alcohol withdrawal/acute alcoholic hepatitis with chronic hyperbilirubinemia/chronic pancytopenia ? He has completed the phenobarbital taper ? Given the intermittent dosing of Ativan will place him on Librium and decrease to twice daily dosing today ? Plan for outpatient follow-up with 180 2. Essential HTN/HLD ? Blood pressures are stable ? Continue with his home medications ? Will monitor make adjustments as necessary 3. DM2 ? Stable, will hold his home medications ? Sliding scale insulin ? Accu-Cheks ACHS ? Will monitor make adjustments as necessary 4. Anxiety/depression/bipolar disorder ? Stable ? Continue with his home medications 5. BPH with obstructive pattern ? Chronic urinary frequency ? No acute obstruction?continue Flomax 6. GERD ? Stable ? Continue with PPI DVT: SCDs Charges/Coding Visit Charges Inpatient E&M: 62905 Subs Hosp L2
[2024-03-07 12:06] VITALS: BP 136/101; PULSE 88
[2024-03-07] MEDS: Menthol/Lanolin/Calamine/Znox 113 GM Tube 1 APPLIC TOPICAL ×2 (12:06→22:58)
[2024-03-07] MEDS: Metoprolol(XL)Succ 50 MG Tablet PO (12:06)
[2024-03-07] MEDS: Nystatin Powder 15gm Bottle 1 APPLIC TOPICAL ×2 (12:06→22:58)
[2024-03-07] MEDS: Insulin Lispro 100 UNIT/ML INSULN.PEN SC ×2 (12:07→23:03)
[2024-03-07] MEDS: Potassium Chloride Oral Tablet 20 MEQ 40 MEQ PO (12:14)
[2024-03-07 12:25] LABS: Bedside Glucose 229 mg/dL (74-106)
[2024-03-07 17:00] VITALS: BP 155/70; PULSE 89; RESP 18; TEMP 37.2; O2SAT 95
[2024-03-07 17:34] LABS: Bedside Glucose 132 mg/dL (74-106)
--- NOTE | 2024-03-07 22:38 | NURSING ---
yelling out for staff, did not use call light. staff in to assist pt statesI need my diaper changed encouraged pt to call for assist and shown call buttons, for bedpan or toilet when needs to have a bowel movement. bed exit on
[2024-03-07 22:56] VITALS: BP 180/96; PULSE 76; RESP 16; TEMP 37; O2SAT 94
[2024-03-07] MEDS: RisperiDONE 1 MG Tablet 2 MG PO (22:58)
[2024-03-07] MEDS: Atorvastatin Calcium 10 MG Tablet PO (22:59)
[2024-03-07 23:08] VITALS: BP 175/95; PULSE 76
[2024-03-07] MEDS: hydrALAZINE 20 MG/ML Vial 10 MG IV (23:08)
[2024-03-07] MEDS: 0.9% Saline Lock 10 ML Syringe IV (23:09)
[2024-03-07] MEDS: hydrOXYzine PAM 25 MG Capsule 50 MG PO (23:20)
[2024-03-07 23:48] LABS: Bedside Glucose 232 mg/dL (74-106)
[2024-03-08] MEDS: Dicyclomine 10 MG Capsule 20 MG PO (02:34)
[2024-03-08] MEDS: Gabapentin 300 MG Capsule PO (02:38)
[2024-03-08 04:52] VITALS: BP 141/87; PULSE 80; RESP 16; TEMP 36.8; O2SAT 97
[2024-03-08] MEDS: Insulin Lispro 100 UNIT/ML INSULN.PEN SC ×4 (06:26→23:11)
[2024-03-08 06:50] LABS: Bedside Glucose 158 mg/dL (74-106)
[2024-03-08 09:00] VITALS: BP 142/95; PULSE 101; RESP 18; TEMP 36.4; O2SAT 97
[2024-03-08] MEDS: buPROPion (XL) 300 MG TABLET.XL PO (09:07)
[2024-03-08] MEDS: Pantoprazole Sodium 40 MG Tablet PO (09:07)
[2024-03-08] MEDS: Lisinopril 40 MG Tablet PO (09:07)
[2024-03-08] MEDS: Multivitamins,Ther W-Minerals Tablet 1 TABLET PO (09:07)
[2024-03-08] MEDS: amLODIPine 10 MG Tablet PO (09:07)
[2024-03-08] MEDS: Tamsulosin HCl 0.4 MG Capsule PO ×2 (09:07→23:07)
[2024-03-08] MEDS: Magnesium Chloride 64 MG Delay Rel.Tablet PO (09:07)
[2024-03-08] MEDS: DULoxetine Hcl 60 MG Capsule PO (09:07)
[2024-03-08 09:08] VITALS: BP 142/95; PULSE 101
[2024-03-08] MEDS: Metoprolol(XL)Succ 50 MG Tablet PO (09:08)
[2024-03-08] MEDS: Folic Acid 1 MG Tablet PO (09:08)
[2024-03-08] MEDS: Menthol/Lanolin/Calamine/Znox 113 GM Tube 1 APPLIC TOPICAL ×2 (09:08→23:16)
[2024-03-08] MEDS: Thiamine Hydrochloride 100 MG Tablet PO (09:08)
[2024-03-08] MEDS: Nystatin Powder 15gm Bottle 1 APPLIC TOPICAL ×2 (09:08→23:17)
[2024-03-08] MEDS: chlordiazePOXIDE 25 MG Capsule PO ×2 (09:14→23:07)
--- NOTE | 2024-03-08 10:16 | CASEMGMT ---
Discharge Planning A list of?SNF providers including quality and resource use data and consistent with the patient's preferred geographic region, medical needs, and insurance network was created in [employer] Guide.? This list was provided to the SW. Natali Lomeli Discharge Planning Asst.
[2024-03-08 12:17] LABS: Bedside Glucose 187 mg/dL (74-106)
--- NOTE | 2024-03-08 12:21 | CASEMGMT ---
Social Work SW received referral from RN and Eliza, addiction therapist. Pt is currently an assist of 2 and cannot use the bathroom independently. Alcohol rehab facilities will be unable to accept pt due to this. SW met with pt to discuss discharge plan. Pt acknowledging that he cannot return home and is open to SNF placement for physical rehab. A list of SNF providers including quality and resource use data and consistent with the patient?s preferred geographic region, medical needs, and insurance network were provided from the [employer] Guide. SW assisted pt in reviewing SNF facilities. Pt preferred provider is [facility] or [facility]. If neither of these facilities can accept, pt would then prefer [facility] or the [facility]. DC assistant controller updated and referral to be sent. SYED Arana
--- NOTE | 2024-03-08 12:46 | CASEMGMT ---
Addendum entered by Natali Lomeli 03/08/24 14:59: [facility] declined referral. SW updated. Natali Lomeli DC Planning Asst. Addendum entered by Natali Lomeli 03/08/24 14:00: [facility] declined referral. Natali Lomeli DC Planning Asst. Original Note: Discharge Planning Referral sent to [facility] and [facility] via [facility]. Natali Lomeli DC Planning Asst.
--- NOTE | 2024-03-08 13:34 | PCM.PN.HOSP ---
Subjective Subjective CIWA score 5 today, he is a two-person assist so PT and OT have been consulted Objective Data Objective Data Vital Signs: Vital Signs Temp Pulse Resp BP Pulse Ox O2 Del Method 97.5 F L 101 H 18 142/95 H 97 Room Air 03/08/24 09:00 03/08/24 09:08 03/08/24 09:00 03/08/24 09:08 03/08/24 09:00 03/08/24 11:00 Oxygen Delivery Method Room Air Weight: 198 lb 6.656 oz Body Mass Index (BMI) 32.0 Intake & Output: Intake and Output for Last 24 Hours 03/07/24 03/08/24 03/09/24 03:59 03:59 03:59 Intake Total 4536.66 / 4536.66 2355 / 2355 1100 / 1100 Output Total 4000 / 4000 3700 / 3700 2250 / 2250 Balance 536.66 / 536.66 -1345 / -1345 -1150 / -1150 Lab / Micro Data 03/04/24 07:06 03/07/24 06:36 Labs: Laboratory Results - last 24 hr 03/07/24 15:52: POC Glucose 132 H 03/07/24 23:02: POC Glucose 232 H 03/08/24 06:25: POC Glucose 158 H 03/08/24 11:52: POC Glucose 187 H Physical Exam Narrative General: Alert, Oriented x3, Cooperative, tremors HEENT: Atraumatic, PERRLA, EOMI, Normocephalic Oral: Moist Mucosa Neck: Supple, No JVD Lungs: Diminished, Normal air movement, No rhonchi, No wheeze, No rales Cardiovascular: Regular rate, Regular Rhythm, Normal S1, Normal S2, No murmurs Abdomen: Soft, Non Tender, Non-Distended, No Hepato-splenomegaly Extremities: No edema, Capillary Refill Less than 3 Seconds Skin: No rashes, No breakdown Musculoskeletal: No Tenderness to Palpation of Joints or Extremities Neurological: No focal neurological deficits, Motor Exam 5/5 strength throughout, Sensory exam intact to light touch and pain Psych/Mental Status: Flat Assessment & Plan Assessment/Plan (1) Alcohol intoxication: PLAN: Plan 1. Acute alcohol withdrawal/acute alcoholic hepatitis with chronic hyperbilirubinemia/chronic pancytopenia/debility ? He has completed the phenobarbital taper ? Given the intermittent dosing of Ativan will place him on Librium and decrease to twice daily dosing today ? Plan for outpatient follow-up with 180 ? PT/OT for evaluation may need SNF on discharge 2. Essential HTN/HLD ? Blood pressures are stable ? Continue with his home medications ? Will monitor make adjustments as necessary 3. DM2 ? Stable, will hold his home medications ? Sliding scale insulin ? Accu-Cheks ACHS ? Will monitor make adjustments as necessary 4. Anxiety/depression/bipolar disorder ? Stable ? Continue with his home medications 5. BPH with obstructive pattern ? Chronic urinary frequency ? No acute obstruction?continue Flomax 6. GERD ? Stable ? Continue with PPI DVT: SCDs Charges/Coding Visit Charges Inpatient E&M: 72956 Subs Hosp L2
--- NOTE | 2024-03-08 15:16 | CASEMGMT ---
Addendum entered by Natali Lomeli 03/08/24 17:21: Patient wishes to proceed with [facility]. [facility] updated. Clinical updates will need sent Monday for precert to be submitted. Natali Lomeli DC Planning Asst. Addendum entered by Natali Lomeli 03/08/24 16:30: [facility] accepted and [facility]. updated. Natali Lomeli DC Planning Asst. Original Note: Discharge Planning Referral sent to [facility] and [facility] [place] via [facility]. Natali Lomeli DC Planning Asst.
[2024-03-08 15:30] VITALS: BP 128/85; PULSE 84; RESP 18; TEMP 36.7; O2SAT 99
[2024-03-08 16:44] LABS: Bedside Glucose 209 mg/dL (74-106)
--- NOTE | 2024-03-08 17:36 | CASEMGMT ---
Social Work SW met with pt and updated that [facility], [facility] and [facility] have denied pt but that [facility] is able to accept. Pt is agreeable to go to [facility]. [facility] updated that they are FOC and that precert can be started. Pt here through the weekend waiting on precert. Plan: [facility], pending precert SYED Arana
[2024-03-08 22:34] VITALS: BP 168/97; PULSE 81; RESP 14; TEMP 36.4; O2SAT 100
[2024-03-08] MEDS: Atorvastatin Calcium 10 MG Tablet PO (23:05)
[2024-03-08] MEDS: RisperiDONE 1 MG Tablet 2 MG PO (23:07)
[2024-03-09] VITALS (8 sets, daily range): BP systolic 131–163; BP diastolic 87–97; PULSE 71–98; RESP 16–18; TEMP 36.3–36.8; O2SAT 95–98
[2024-03-09 01:34] LABS: Bedside Glucose 180 mg/dL (74-106)
[2024-03-09] MEDS: Insulin Lispro 100 UNIT/ML INSULN.PEN SC ×4 (06:11→22:50)
[2024-03-09] MEDS: 0.9% Saline Lock 10 ML Syringe IV ×2 (06:12→22:58)
[2024-03-09 07:18] LABS: Bedside Glucose 175 mg/dL (74-106)
[2024-03-09] MEDS: Metoprolol(XL)Succ 50 MG Tablet PO (08:59)
[2024-03-09] MEDS: Magnesium Chloride 64 MG Delay Rel.Tablet PO (08:59)
[2024-03-09] MEDS: buPROPion (XL) 300 MG TABLET.XL PO (08:59)
[2024-03-09] MEDS: Thiamine Hydrochloride 100 MG Tablet PO (08:59)
[2024-03-09] MEDS: Multivitamins,Ther W-Minerals Tablet 1 TABLET PO (09:00)
[2024-03-09] MEDS: Nystatin Powder 15gm Bottle 1 APPLIC TOPICAL ×2 (09:00→22:48)
[2024-03-09] MEDS: Pantoprazole Sodium 40 MG Tablet PO (09:00)
[2024-03-09] MEDS: Folic Acid 1 MG Tablet PO (09:01)
[2024-03-09] MEDS: Menthol/Lanolin/Calamine/Znox 113 GM Tube 1 APPLIC TOPICAL ×2 (09:01→22:48)
[2024-03-09] MEDS: Tamsulosin HCl 0.4 MG Capsule PO ×2 (09:02→22:48)
[2024-03-09] MEDS: amLODIPine 10 MG Tablet PO (09:02)
[2024-03-09] MEDS: DULoxetine Hcl 60 MG Capsule PO (09:02)
[2024-03-09] MEDS: chlordiazePOXIDE 25 MG Capsule PO ×2 (09:04→22:51)
--- NOTE | 2024-03-09 10:29 | PCM.PN.HOSP ---
Subjective Subjective Doing well, no issues overnight Objective Data Objective Data Vital Signs: Vital Signs Temp Pulse Resp BP Pulse Ox O2 Del Method 97.5 F L 96 16 155/87 H 98 Room Air 03/09/24 04:20 03/09/24 08:59 03/09/24 04:20 03/09/24 04:20 03/09/24 04:20 03/09/24 04:20 Oxygen Delivery Method Room Air Weight: 198 lb 6.656 oz Body Mass Index (BMI) 32.0 Intake & Output: Intake and Output for Last 24 Hours 03/08/24 03/09/24 03/10/24 03:59 03:59 03:59 Intake Total 2355 / 2355 2350 / 2350 Output Total 3700 / 3700 3651 / 3651 650 / 650 Balance -1345 / -1345 -1301 / -1301 -650 / -650 Lab / Micro Data 03/04/24 07:06 03/07/24 06:36 Labs: Laboratory Results - last 24 hr 03/08/24 11:52: POC Glucose 187 H 03/08/24 16:26: POC Glucose 209 H 03/08/24 22:47: POC Glucose 180 H 03/09/24 06:07: POC Glucose 175 H Physical Exam Narrative General: Alert, Oriented x3, Cooperative, tremors HEENT: Atraumatic, PERRLA, EOMI, Normocephalic Oral: Moist Mucosa Neck: Supple, No JVD Lungs: Diminished, Normal air movement, No rhonchi, No wheeze, No rales Cardiovascular: Regular rate, Regular Rhythm, Normal S1, Normal S2, No murmurs Abdomen: Soft, Non Tender, Non-Distended, No Hepato-splenomegaly Extremities: No edema, Capillary Refill Less than 3 Seconds Skin: No rashes, No breakdown Musculoskeletal: No Tenderness to Palpation of Joints or Extremities Neurological: No focal neurological deficits, Motor Exam 5/5 strength throughout, Sensory exam intact to light touch and pain Psych/Mental Status: Flat Assessment & Plan Assessment/Plan (1) Alcohol intoxication: PLAN: Plan 1. Acute alcohol withdrawal/acute alcoholic hepatitis with chronic hyperbilirubinemia/chronic pancytopenia/debility ? He has completed the phenobarbital taper ?Will decrease Librium to daily dosing tomorrow ? Plan for outpatient follow-up with 180 ? PT/OT ? Pending discharge to [facility], pre-CERT is pending 2. Essential HTN/HLD ? Blood pressures are stable ? Continue with his home medications ? Will monitor make adjustments as necessary 3. DM2 ? Stable, will hold his home medications ? Sliding scale insulin ? Accu-Cheks ACHS ? Will monitor make adjustments as necessary 4. Anxiety/depression/bipolar disorder ? Stable ? Continue with his home medications 5. BPH with obstructive pattern ? Chronic urinary frequency ? No acute obstruction?continue Flomax 6. GERD ? Stable ? Continue with PPI DVT: SCDs Charges/Coding Visit Charges Inpatient E&M: 77291 Subs Hosp L2
[2024-03-09 12:21] LABS: Bedside Glucose 207 mg/dL (74-106)
[2024-03-09] MEDS: Lisinopril 40 MG Tablet PO (12:31)
[2024-03-09 16:39] LABS: Bedside Glucose 199 mg/dL (74-106)
[2024-03-09] MEDS: RisperiDONE 1 MG Tablet 2 MG PO (22:49)
[2024-03-09] MEDS: Atorvastatin Calcium 10 MG Tablet PO (22:49)
[2024-03-10 00:05] LABS: Bedside Glucose 221 mg/dL (74-106)
[2024-03-10 03:10] VITALS: BP 140/85; PULSE 80; RESP 14; TEMP 36.8; O2SAT 96
[2024-03-10] MEDS: Insulin Lispro 100 UNIT/ML INSULN.PEN SC ×4 (06:08→22:22)
[2024-03-10 06:32] LABS: Bedside Glucose 175 mg/dL (74-106)
[2024-03-10 06:58] LABS: Anion Gap 9 (5-15); BUN 11 mg/dL (7-18); BUN/Creat Ratio 13.8 RATIO (10-20); Calcium,Total 8.6 mg/dL (8.5-10.1); Chloride 103 mmol/L (98-107); EST Glomerular Filtration Rate 105 mL/min (>60); Est Glom Filt Rate - Afr Amer 127 mL/min (>60); Estimated Creatinine Clearance 103.17 ml/min; Glucose 177 mg/dL (74-106); Sodium Level 136 mmol/L (136-145)
[2024-03-10] MEDS: Multivitamins,Ther W-Minerals Tablet 1 TABLET PO (08:47)
[2024-03-10] MEDS: DULoxetine Hcl 60 MG Capsule PO (08:47)
[2024-03-10] MEDS: Menthol/Lanolin/Calamine/Znox 113 GM Tube 1 APPLIC TOPICAL ×2 (08:47→22:20)
[2024-03-10] MEDS: Tamsulosin HCl 0.4 MG Capsule PO ×2 (08:48→22:23)
[2024-03-10] MEDS: Folic Acid 1 MG Tablet PO (08:49)
[2024-03-10] MEDS: Thiamine Hydrochloride 100 MG Tablet PO (08:49)
[2024-03-10] MEDS: buPROPion (XL) 300 MG TABLET.XL PO (08:49)
[2024-03-10] MEDS: Magnesium Chloride 64 MG Delay Rel.Tablet PO (08:50)
[2024-03-10] MEDS: Pantoprazole Sodium 40 MG Tablet PO (08:50)
[2024-03-10] MEDS: Nystatin Powder 15gm Bottle 1 APPLIC TOPICAL ×2 (08:50→22:22)
[2024-03-10] MEDS: amLODIPine 10 MG Tablet PO (08:52)
[2024-03-10] MEDS: Lisinopril 40 MG Tablet PO (08:52)
[2024-03-10] MEDS: chlordiazePOXIDE 25 MG Capsule PO ×2 (08:57→22:26)
[2024-03-10] MEDS: Glucerna Shake 120 ML LIQUID PO ×3 (08:57→16:49)
[2024-03-10 08:59] VITALS: BP 150/97; PULSE 88
[2024-03-10] MEDS: Metoprolol(XL)Succ 50 MG Tablet PO (08:59)
[2024-03-10 09:00] VITALS: BP 150/97; PULSE 88; RESP 18; TEMP 36.6; O2SAT 97
--- NOTE | 2024-03-10 10:56 | PN.HOSP_ITS ---
Subjective Subjective Feels better but still with significant tremor Objective Data Objective Data Vital Signs: Vital Signs Temp Pulse Resp BP Pulse Ox O2 Del Method 97.9 F 88 18 150/97 H 97 Room Air 03/10/24 09:00 03/10/24 09:00 03/10/24 09:00 03/10/24 09:00 03/10/24 09:00 03/10/24 09:00 Oxygen Delivery Method Room Air Weight: 198 lb 6.656 oz Body Mass Index (BMI) 32.0 Intake & Output: Intake and Output for Last 24 Hours 03/09/24 03/10/24 03/11/24 03:59 03:59 03:59 Intake Total 2350 / 2350 1300 / 1300 0 / 0 Output Total 3651 / 3651 2600 / 2600 0 / 0 Balance -1301 / -1301 -1300 / -1300 0 / 0 Lab / Micro Data 03/04/24 07:06 03/10/24 05:30 Labs: Laboratory Results - last 24 hr 03/09/24 11:59: POC Glucose 207 H 03/09/24 16:18: POC Glucose 199 H 03/09/24 22:41: POC Glucose 221 H 03/10/24 05:30: Sodium 136, Potassium 3.0 L, Chloride 103, Carbon Dioxide 24.0, Anion Gap 9, BUN 11, Creatinine 0.80, Estim Creat Clear Calc 103.17, Est GFR (MDRD) Af Amer 127, Est GFR (MDRD) Non-Af 105, BUN/Creatinine Ratio 13.8, G lucose 177 H, Calcium 8.6 03/10/24 06:06: POC Glucose 175 H Physical Exam Narrative General: Alert, Oriented x3, Cooperative, tremors HEENT: Atraumatic, PERRLA, EOMI, Normocephalic Oral: Moist Mucosa Neck: Supple, No JVD Lungs: Diminished, Normal air movement, No rhonchi, No wheeze, No rales Cardiovascular: Regular rate, Regular Rhythm, Normal S1, Normal S2, No murmurs Abdomen: Soft, Non Tender, Non-Distended, No Hepato-splenomegaly Extremities: No edema, Capillary Refill Less than 3 Seconds Skin: No rashes, No breakdown Musculoskeletal: No Tenderness to Palpation of Joints or Extremities Neurological: No focal neurological deficits, Motor Exam 5/5 strength throughout, Sensory exam intact to light touch and pain Psych/Mental Status: Normal affect Assessment & Plan Assessment/Plan (1) Alcohol intoxication: PLAN: Plan 1. Acute alcohol withdrawal/acute alcoholic hepatitis with chronic hyperbilirubinemia/chronic pancytopenia/debility ? He has completed the phenobarbital taper ? Given his tremors, will continue with Librium at twice daily today ? PT/OT ? Pending discharge to SNF, pre-CERT is pending 2. Essential HTN/HLD ? Blood pressures are stable ? Continue with his home medications ? Will monitor make adjustments as necessary 3. DM2 ? Stable, will hold his home medications ? Sliding scale insulin ? Accu-Cheks ACHS ? Will monitor make adjustments as necessary 4. Anxiety/depression/bipolar disorder ? Stable ? Continue with his home medications 5. BPH with obstructive pattern ? Chronic urinary frequency ? No acute obstruction?continue Flomax 6. GERD ? Stable ? Continue with PPI DVT: SCDs Charges/Coding Visit Charges Inpatient E&M: 64335 Subs Hosp L2
[2024-03-10 12:06] LABS: Bedside Glucose 197 mg/dL (74-106)
--- NOTE | 2024-03-10 12:16 | NURSING ---
This RN performed a Blood sugar using hospital Glucometer but it did not save. Blood sugar was 197.
[2024-03-10 17:14] LABS: Bedside Glucose 162 mg/dL (74-106)
[2024-03-10 18:04] VITALS: BP 136/88; PULSE 87; RESP 16; TEMP 36.7; O2SAT 99
[2024-03-10 22:20] VITALS: BP 131/72; PULSE 81; RESP 18; TEMP 36.6; O2SAT 98
[2024-03-10] MEDS: RisperiDONE 1 MG Tablet 2 MG PO (22:23)
[2024-03-10] MEDS: Atorvastatin Calcium 10 MG Tablet PO (22:23)
[2024-03-10 23:01] LABS: Bedside Glucose 249 mg/dL (74-106)
[2024-03-11 04:00] VITALS: BP 152/93; PULSE 80; RESP 16; TEMP 36.4; O2SAT 96
[2024-03-11 06:34] LABS: Absolute Lymphocyte Count 0.98 X10^3/uL (0.83-4.51); Absolute Neutrophil Count 1.4 X10^3/uL (2.0-7.7); Basophil# 0.06 X10^3/uL; Eosinophil# 0.03 X10^3/uL; Hematocrit 31.6 % (40-54); Lymphocyte # 0.98 X10^3/ul (0.83-4.51); Mean Corp Hgb Conc 31.6 g/dL (32-36); Mean Corpuscular Hgb 27.4 pg (27.0-32.0); Mean Corpuscular Volume 86.6 fL (80-94); Mean Platelet Vol. 9.5 fl (6.2-12.0); Monocyte# 0.55 X10^3/uL; NRBC Flagged by Analyzer 0 % (0-5); Neutrophil # 1.43 X10^3/uL (2.7-7.7); Neutrophil % 46.7 % (47-70); Platelet Count 246 K/mm3 (150-450); RBC Distribution Width CV 19.5 % (11.6-14.6); RBC Distribution Width SD 60.7 fl (35.1-43.9); Red Blood Count 3.65 M/mm3 (4.6-6.2); White Blood Count 3.1 K/mm3 (4.4-11.0)
[2024-03-11] MEDS: Insulin Lispro 100 UNIT/ML INSULN.PEN SC ×4 (06:39→22:07)
[2024-03-11 07:05] LABS: Bedside Glucose 204 mg/dL (74-106)
[2024-03-11 07:09] LABS: ALB/GLOB Ratio 0.8 RATIO (0.9-2.4); AST(SGOT) 73 U/L (15-37); Alanine Aminotransfer ALT/SGPT 106 U/L (16-61); Alkaline Phosphatase 155 U/L (45-117); Anion Gap 8 (5-15); BUN 10 mg/dL (7-18); BUN/Creat Ratio 12.1 RATIO (10-20); Calcium,Total 8.7 mg/dL (8.5-10.1); Chloride 105 mmol/L (98-107); Creatinine, Serum 0.83 mg/dL (0.70-1.30); EST Glomerular Filtration Rate 101 mL/min (>60); Est Glom Filt Rate - Afr Amer 122 mL/min (>60); Estimated Creatinine Clearance 99.44 ml/min; Globulin 3.7 g/dL (2.2-4.2); Glucose 191 mg/dL (74-106); Potassium 3.4 mmol/L (3.5-5.1); Protein, Total 6.7 g/dL (6.4-8.2); Sodium Level 138 mmol/L (136-145)
[2024-03-11] MEDS: Multivitamins,Ther W-Minerals Tablet 1 TABLET PO (07:30)
[2024-03-11] MEDS: Tamsulosin HCl 0.4 MG Capsule PO ×2 (07:30→22:07)
[2024-03-11 07:31] VITALS: PULSE 58
[2024-03-11] MEDS: Thiamine Hydrochloride 100 MG Tablet PO (07:31)
[2024-03-11] MEDS: Magnesium Chloride 64 MG Delay Rel.Tablet PO (07:31)
[2024-03-11] MEDS: Metoprolol(XL)Succ 50 MG Tablet PO (07:31)
[2024-03-11] MEDS: DULoxetine Hcl 60 MG Capsule PO (07:31)
[2024-03-11] MEDS: buPROPion (XL) 300 MG TABLET.XL PO (07:31)
[2024-03-11] MEDS: Folic Acid 1 MG Tablet PO (07:32)
[2024-03-11] MEDS: Lisinopril 40 MG Tablet PO (07:32)
[2024-03-11] MEDS: Pantoprazole Sodium 40 MG Tablet PO (07:32)
[2024-03-11] MEDS: amLODIPine 10 MG Tablet PO (07:32)
[2024-03-11] MEDS: Nystatin Powder 15gm Bottle 1 APPLIC TOPICAL ×2 (07:33→22:07)
[2024-03-11] MEDS: Menthol/Lanolin/Calamine/Znox 113 GM Tube 1 APPLIC TOPICAL ×2 (07:33→22:07)
[2024-03-11] MEDS: chlordiazePOXIDE 25 MG Capsule PO ×2 (07:37→22:07)
[2024-03-11 08:35] VITALS: BP 166/91; PULSE 58; RESP 16; TEMP 36.4; O2SAT 99
[2024-03-11] MEDS: Glucerna Shake 120 ML LIQUID PO ×3 (08:52→17:07)
[2024-03-11] MEDS: hydrOXYzine PAM 25 MG Capsule 50 MG PO ×2 (08:52→20:28)
[2024-03-11 11:40] LABS: Bedside Glucose 247 mg/dL (74-106)
[2024-03-11 11:47] VITALS: BP 130/78; PULSE 82; RESP 16; TEMP 36.4; O2SAT 100
--- NOTE | 2024-03-11 13:15 | PCM.PN.HOSP ---
Reason for Visit Reason for Visit: Diagnoses Other pancytopenia (03/02/24) Other acidosis (03/02/24) Other specified metabolic disorders (03/02/24) Alcohol use, unspecified with intoxication, unspecified (03/02/24) Abnormal levels of other serum enzymes (03/02/24) Objective Data Objective Data Vital Signs: Vital Signs Temp Pulse Resp BP Pulse Ox O2 Del Method 97.6 F L 82 16 130/78 H 100 Room Air 03/11/24 11:47 03/11/24 11:47 03/11/24 11:47 03/11/24 11:47 03/11/24 11:47 03/11/24 11:47 Oxygen Delivery Method Room Air Weight: 198 lb 6.656 oz Body Mass Index (BMI) 32.0 Intake & Output: Intake and Output for Last 24 Hours 03/09/24 03/10/24 03/11/24 23:59 23:59 23:59 Intake Total 1300 / 1900 1050 / 1050 450 / 450 Output Total 1751 / 3201 2950 / 2950 1900 / 1900 Balance -451 / -1301 -1900 / -1900 -1450 / -1450 Lab / Micro Data 03/11/24 05:50 03/11/24 05:50 Labs: Laboratory Results - last 24 hr 03/10/24 16:29: POC Glucose 162 H 03/10/24 22:19: POC Glucose 249 H 03/11/24 05:50: WBC 3.1 L, RBC 3.65 L, Hgb 10.0 L, Hct 31.6 L, MCV 86.6, MCH 27.4, MCHC 31.6 L, RDW Std Deviation 60.7 H, RDW Coeff of [place] 19.5 H, Plt Count 246, MPV 9.5, Immature Gran % (Auto) 0.300, Neut % (Auto) 46.7 L, Lymph % (Auto) 32.0, [place] % (Auto) 18.0 H, Eos % (Auto) 1.0, Baso % (Auto) 2.0 H, Absolute Neuts (auto) 1.4 L, Absolute Lymphs (auto) 0.98, Nucleated RBC % 0, Sodium 138, Potassium 3.4 L, Chloride 105, Carbon Dioxide 25.0, Anion Gap 8, BUN 10, Creatinine 0.83, Estim Creat Clear Calc 99.44, Est GFR (MDRD) Af Amer 122, Est GFR (MDRD) Non-Af 101, BUN/Creatinine Ratio 12.1, Glucose 191 H, Calcium 8.7, Total Bilirubin 0.30, AST 73 H, ALT 106 H, Alkaline Phosphatase 155 H, Total Protein 6.7, Albumin 3.0 L, Globulin 3.7, Albumin/Globulin Ratio 0.8 L 03/11/24 06:37: POC Glucose 204 H 03/11/24 11:16: POC Glucose 247 H Physical Exam Narrative Seen and examined. Patient has history of chronic alcohol use and was admitted for medical treatment for acute alcohol withdrawal symptoms in the past. Patient completed his phenobarbital taper but is still has symptoms therefore Librium was added. Patient having tremors. Physical exam General: Alert, Oriented x3, Cooperative HEENT: Atraumatic, PERRLA, EOMI, Normocephalic Oral: No Gingival or Mucosal Lesions/ Ulcerations Neck: Supple, No JVD, Negative Carotid Bruits Chest wall/Lungs: Air entry diminished in bilateral lung bases. No crepitation/rhonchi Cardiovascular: Regular rate, Regular Rhythm, Normal S1, Normal S2, No M/G/R Abdomen: Bowel Sounds Present, Soft, Non Tender, Non-Distended : No dysuria. No renal angle tenderness. No suprapubic tenderness. Hand tremors. Extremities: No edema, Capillary Refill Less than 3 Seconds Skin: No rashes, No breakdown Musculoskeletal: No Tenderness to Palpation of Joints or Extremities Neurological: Cranial nerves II-XII grossly intact, DTR 2+/4. No acute focal neurological deficit. Psych/Mental Status: Flat affect. Assessment & Plan Assessment/Plan (1) Alcohol intoxication: PLAN: Plan 1. Acute alcohol withdrawal/acute alcoholic hepatitis with chronic hyperbilirubinemia/chronic pancytopenia/debility ? He has completed the phenobarbital taper ? Given his tremors, will continue with Librium at twice daily today ? PT/OT ? Pending discharge to SNF, pre-CERT is pending 03/11: Acute alcohol withdrawal symptoms are resolved. 2. Essential HTN/HLD ? Blood pressures are in normal range ? Continue with his home medications ? Will monitor make adjustments as necessary 3. DM2 ? Oral hypoglycemic agents on hold ? Started on Lantus 8 units subcutaneous at dinnertime. Accu-Chek before meals and at bedtime with Humalog sliding scale coverage and hypoglycemia protocol. Hold if glucose less than 130 mg/dl ? Will monitor make adjustments as necessary Home medications also shows patient on prednisone, last dose taken unclear. Hold if 4. Anxiety/depression/bipolar disorder ? Stable ? Continue with his home medications 5. BPH with obstructive pattern ? Chronic urinary frequency ? No acute obstruction?continue Flomax 6. GERD ? Stable ? Continue with PPI DVT: SCDs Laboratory Results 03/10/24 16:29: POC Glucose 162 H 03/10/24 22:19: POC Glucose 249 H 03/11/24 05:50: WBC 3.1 L, RBC 3.65 L, Hgb 10.0 L, Hct 31.6 L, MCV 86.6, MCH 27.4, MCHC 31.6 L, RDW Std Deviation 60.7 H, RDW Coeff of [place] 19.5 H, Plt Count 246, MPV 9.5, Immature Gran % (Auto) 0.300, Neut % (Auto) 46.7 L, Lymph % (Auto) 32.0, [place] % (Auto) 18.0 H, Eos % (Auto) 1.0, Baso % (Auto) 2.0 H, Absolute Neuts (auto) 1.4 L, Absolute Lymphs (auto) 0.98, Nucleated RBC % 0, Sodium 138, Potassium 3.4 L, Chloride 105, Carbon Dioxide 25.0, Anion Gap 8, BUN 10, Creatinine 0.83, Estim Creat Clear Calc 99.44, Est GFR (MDRD) Af Amer 122, Est GFR (MDRD) Non-Af 101, BUN/Creatinine Ratio 12.1, Glucose 191 H, Calcium 8.7, Total Bilirubin 0.30, AST 73 H, ALT 106 H, Alkaline Phosphatase 155 H, Total Protein 6.7, Albumin 3.0 L, Globulin 3.7, Albumin/Globulin Ratio 0.8 L 03/11/24 06:37: POC Glucose 204 H 03/11/24 11:16: POC Glucose 247 H Charges/Coding Visit Charges Inpatient E&M: 68928 Subs Hosp L2
[2024-03-11 14:47] VITALS: BP 148/85; PULSE 69; RESP 16; TEMP 36.4; O2SAT 99
[2024-03-11 16:18] LABS: Bedside Glucose 190 mg/dL (74-106)
[2024-03-11] MEDS: Potassium Chloride Oral Tablet 20 MEQ 40 MEQ PO (17:08)
[2024-03-11] MEDS: Insulin Glargine-YFGN 100 UNIT/ML Pen 8 UNIT SC (17:48)
[2024-03-11 20:30] VITALS: BP 148/85; PULSE 73; RESP 16; TEMP 36.6; O2SAT 97
[2024-03-11] MEDS: RisperiDONE 1 MG Tablet 2 MG PO (22:06)
[2024-03-11] MEDS: Atorvastatin Calcium 10 MG Tablet PO (22:07)
[2024-03-11 22:41] LABS: Bedside Glucose 217 mg/dL (74-106)
[2024-03-12 02:30] VITALS: BP 157/87; PULSE 57; RESP 16; TEMP 36.6; O2SAT 95
[2024-03-12] MEDS: Insulin Lispro 100 UNIT/ML INSULN.PEN SC ×4 (06:55→21:37)
[2024-03-12 07:20] LABS: Bedside Glucose 174 mg/dL (74-106)
[2024-03-12 08:11] VITALS: BP 161/87; PULSE 56; RESP 16; TEMP 36.6; O2SAT 100
[2024-03-12] MEDS: Folic Acid 1 MG Tablet PO (08:17)
[2024-03-12] MEDS: Multivitamins,Ther W-Minerals Tablet 1 TABLET PO (08:17)
[2024-03-12] MEDS: Thiamine Hydrochloride 100 MG Tablet PO (08:18)
[2024-03-12] MEDS: Glucerna Shake 120 ML LIQUID PO ×3 (08:19→17:15)
[2024-03-12] MEDS: Menthol/Lanolin/Calamine/Znox 113 GM Tube 1 APPLIC TOPICAL ×2 (08:19→21:26)
[2024-03-12] MEDS: Magnesium Chloride 64 MG Delay Rel.Tablet PO (08:20)
[2024-03-12] MEDS: Tamsulosin HCl 0.4 MG Capsule PO ×2 (08:20→21:25)
[2024-03-12] MEDS: Lisinopril 40 MG Tablet PO (08:20)
[2024-03-12] MEDS: DULoxetine Hcl 60 MG Capsule PO (08:20)
[2024-03-12] MEDS: Pantoprazole Sodium 40 MG Tablet PO (08:20)
[2024-03-12] MEDS: buPROPion (XL) 300 MG TABLET.XL PO (08:20)
[2024-03-12 08:21] VITALS: BP 161/87; PULSE 56
[2024-03-12] MEDS: Nystatin Powder 15gm Bottle 1 APPLIC TOPICAL ×2 (08:21→21:25)
[2024-03-12] MEDS: amLODIPine 10 MG Tablet PO (08:21)
[2024-03-12] MEDS: Metoprolol(XL)Succ 50 MG Tablet PO (08:21)
[2024-03-12] MEDS: chlordiazePOXIDE 25 MG Capsule PO ×2 (08:25→21:25)
--- NOTE | 2024-03-12 09:08 | CASEMGMT ---
Discharge Planning Updates sent to [facility]. Requested precert to be started. Natali Lomeli DC Planning Asst.
[2024-03-12] MEDS: hydrOXYzine PAM 25 MG Capsule 50 MG PO ×2 (11:54→17:15)
[2024-03-12 12:24] LABS: Bedside Glucose 190 mg/dL (74-106)
[2024-03-12 15:44] VITALS: BP 146/75; PULSE 67; RESP 18; TEMP 37; O2SAT 98
[2024-03-12 16:36] LABS: Bedside Glucose 245 mg/dL (74-106)
--- NOTE | 2024-03-12 16:38 | PN.HOSP_ITS ---
Reason for Visit Reason for Visit: Diagnoses Other pancytopenia (03/02/24) Other acidosis (03/02/24) Other specified metabolic disorders (03/02/24) Alcohol use, unspecified with intoxication, unspecified (03/02/24) Abnormal levels of other serum enzymes (03/02/24) Objective Data Objective Data Vital Signs: Vital Signs Temp Pulse Resp BP Pulse Ox O2 Del Method 98.6 F 67 18 146/75 H 98 Room Air 03/12/24 15:44 03/12/24 15:44 03/12/24 15:44 03/12/24 15:44 03/12/24 15:44 03/12/24 15:44 Oxygen Delivery Method Room Air Weight: 198 lb 6.656 oz Body Mass Index (BMI) 32.0 Intake & Output: Intake and Output for Last 24 Hours 03/10/24 03/11/24 03/12/24 23:59 23:59 23:59 Intake Total 1050 / 1050 1050 / 1050 900 / 900 Output Total 2950 / 2950 3400 / 3400 1000 / 1000 Balance -1900 / -1900 -2350 / -2350 -100 / -100 Lab / Micro Data 03/11/24 05:50 03/11/24 05:50 Labs: Laboratory Results - last 24 hr 03/11/24 22:05: POC Glucose 217 H 03/12/24 06:53: POC Glucose 174 H 03/12/24 11:57: POC Glucose 190 H 03/12/24 16:17: POC Glucose 245 H Physical Exam Narrative Seen and examined. Patient is still tremulous, unsteady gait and likely to fall. Patient has history of chronic alcohol use and was admitted for medical treatment for acute alcohol withdrawal symptoms in the past. Physical exam General: Alert, Oriented x3, Cooperative HEENT: Atraumatic, PERRLA, EOMI, Normocephalic Oral: No Gingival or Mucosal Lesions/ Ulcerations Neck: Supple, No JVD, Negative Carotid Bruits Chest wall/Lungs: Air entry diminished in bilateral lung bases. No crepitation/rhonchi Cardiovascular: Regular rate, Regular Rhythm, Normal S1, Normal S2, No M/G/R Abdomen: Bowel Sounds Present, Soft, Non Tender, Non-Distended : No dysuria. No renal angle tenderness. No suprapubic tenderness. Hand tremors. Extremities: No edema, Capillary Refill Less than 3 Seconds Skin: No rashes, No breakdown Musculoskeletal: No Tenderness to Palpation of Joints or Extremities. Gait instability. Muscle strength 4+/5 at major joints. Neurological: Cranial nerves II-XII grossly intact, DTR 2+/4. No acute focal neurological deficit. Psych/Mental Status: Flat affect. Assessment & Plan Assessment/Plan (1) Alcohol intoxication: PLAN: Plan 1. Acute alcohol withdrawal/acute alcoholic hepatitis with chronic hyperbilirubinemia/chronic pancytopenia/debility ? He has completed the phenobarbital taper ? Given his tremors, will continue with Librium at twice daily today ? PT/OT ? Pending discharge to SNF, pre-CERT is pending 03/11: Acute alcohol withdrawal symptoms are resolved. 03/12: Pre-CERT is pending. Not stable for discharge to home with gait instability/ataxia and disequilibrium and high risk of fall 2. Essential HTN/HLD ? Blood pressures are in normal range ? Continue with his home medications 03/12: Blood pressure in the settable range. 3. DM2 ? Oral hypoglycemic agents on hold ? Started on Lantus 8 units subcutaneous at dinnertime. Accu-Chek before meals and at bedtime with Humalog sliding scale coverage and hypoglycemia protocol. Hold if glucose less than 130 mg/dl Home medications also shows patient on prednisone, last dose taken unclear. Hold if 03/12: Glucoses between 174-245. Insulin dose increased. 4. Anxiety/depression/bipolar disorder ? Stable ? Continue with his home medications 5. BPH with obstructive pattern ? Chronic urinary frequency ? No acute obstruction?continue Flomax 6. GERD ? Stable ? Continue with PPI DVT: SCDs Laboratory Results 03/10/24 16:29: POC Glucose 162 H 03/10/24 22:19: POC Glucose 249 H 03/11/24 05:50: WBC 3.1 L, RBC 3.65 L, Hgb 10.0 L, Hct 31.6 L, MCV 86.6, MCH 27.4, MCHC 31.6 L, RDW Std Deviation 60.7 H, RDW Coeff of [place] 19.5 H, Plt Count 246, MPV 9.5, Immature Gran % (Auto) 0.300, Neut % (Auto) 46.7 L, Lymph % (Auto) 32.0, [place] % (Auto) 18.0 H, Eos % (Auto) 1.0, Baso % (Auto) 2.0 H, Absolute Neuts (auto) 1.4 L, Absolute Lymphs (auto) 0.98, Nucleated RBC % 0, Sodium 138, Potassium 3.4 L, Chloride 105, Carbon Dioxide 25.0, Anion Gap 8, BUN 10, Creatinine 0.83, Estim Creat Clear Calc 99.44, Est GFR (MDRD) Af Amer 122, Est GFR (MDRD) Non-Af 101, BUN/Creatinine Ratio 12.1, Glucose 191 H, Calcium 8.7, Total Bilirubin 0.30, AST 73 H, ALT 106 H, Alkaline Phosphatase 155 H, Total Protein 6.7, Albumin 3.0 L, Globulin 3.7, Albumin/Globulin Ratio 0.8 L 03/11/24 06:37: POC Glucose 204 H 03/11/24 11:16: POC Glucose 247 H Charges/Coding Visit Charges Inpatient E&M: 77996 Subs Hosp L2
[2024-03-12] MEDS: Insulin Glargine-YFGN 100 UNIT/ML Pen 12 UNIT SC (17:16)
--- NOTE | 2024-03-12 18:21 | CASEMGMT ---
Social Work- SW met with pt to answer questions and provide updates on referral status. SW followed up with charge nurse to ensure that pt is allowed visitors, as his RAMP status has . SYED Augustin
[2024-03-12 21:17] VITALS: BP 150/79; PULSE 65; RESP 15; TEMP 37.2; O2SAT 96
[2024-03-12] MEDS: Atorvastatin Calcium 10 MG Tablet PO (21:25)
[2024-03-12] MEDS: RisperiDONE 1 MG Tablet 2 MG PO (21:25)
[2024-03-12 21:58] LABS: Bedside Glucose 239 mg/dL (74-106)
[2024-03-13 02:48] VITALS: BP 124/73; PULSE 70; RESP 15; TEMP 36.2; O2SAT 96
[2024-03-13 03:00] VITALS: O2SAT 95
[2024-03-13] MEDS: Insulin Lispro 100 UNIT/ML INSULN.PEN SC ×3 (08:15→16:47)
[2024-03-13] MEDS: Insulin Lispro 100 UNIT/ML INSULN.PEN 6 UNIT SC ×3 (08:16→16:47)
[2024-03-13] MEDS: Folic Acid 1 MG Tablet PO (08:17)
[2024-03-13] MEDS: Multivitamins,Ther W-Minerals Tablet 1 TABLET PO (08:17)
[2024-03-13] MEDS: Tamsulosin HCl 0.4 MG Capsule PO ×2 (08:18→22:35)
[2024-03-13] MEDS: Magnesium Chloride 64 MG Delay Rel.Tablet PO (08:18)
[2024-03-13] MEDS: Menthol/Lanolin/Calamine/Znox 113 GM Tube 1 APPLIC TOPICAL ×2 (08:18→22:00)
[2024-03-13] MEDS: Nystatin Powder 15gm Bottle 1 APPLIC TOPICAL ×2 (08:18→22:00)
[2024-03-13] MEDS: Thiamine Hydrochloride 100 MG Tablet PO (08:18)
[2024-03-13] MEDS: DULoxetine Hcl 60 MG Capsule PO (08:18)
[2024-03-13 08:20] VITALS: BP 135/93; PULSE 73
[2024-03-13] MEDS: Lisinopril 40 MG Tablet PO (08:20)
[2024-03-13] MEDS: Metoprolol(XL)Succ 50 MG Tablet PO (08:20)
[2024-03-13] MEDS: Pantoprazole Sodium 40 MG Tablet PO (08:21)
[2024-03-13] MEDS: buPROPion (XL) 300 MG TABLET.XL PO (08:21)
[2024-03-13] MEDS: amLODIPine 10 MG Tablet PO (08:21)
[2024-03-13 08:30] VITALS: BP 135/93; PULSE 73; RESP 16; TEMP 36.6; O2SAT 98
[2024-03-13] MEDS: Glucerna Shake 120 ML LIQUID PO ×3 (08:30→16:44)
[2024-03-13] MEDS: chlordiazePOXIDE 25 MG Capsule PO ×2 (08:30→22:44)
[2024-03-13 08:39] LABS: Bedside Glucose 152 mg/dL (74-106)
[2024-03-13] MEDS: Acetaminophen 325 MG Tablet 650 MG PO (11:33)
[2024-03-13] MEDS: hydrOXYzine PAM 25 MG Capsule 50 MG PO (11:33)
[2024-03-13 11:48] LABS: Bedside Glucose 167 mg/dL (74-106)
[2024-03-13 14:00] VITALS: BP 115/80; PULSE 79; RESP 16; TEMP 36.8; O2SAT 99
--- NOTE | 2024-03-13 15:32 | PN.HOSP_ITS ---
Reason for Visit Reason for Visit: Diagnoses Other pancytopenia (03/02/24) Other acidosis (03/02/24) Other specified metabolic disorders (03/02/24) Alcohol use, unspecified with intoxication, unspecified (03/02/24) Abnormal levels of other serum enzymes (03/02/24) Objective Data Objective Data Vital Signs: Vital Signs Temp Pulse Resp BP Pulse Ox O2 Del Method O2 Flow Rate 98.3 F 79 16 115/80 99 Room Air 2 03/13/24 14:00 03/13/24 14:00 03/13/24 14:00 03/13/24 14:00 03/13/24 14:00 03/13/24 14:00 03/13/24 03:00 Oxygen Flow Rate (L/min) 2 Oxygen Delivery Method Room Air Weight: 198 lb 6.656 oz Body Mass Index (BMI) 32.0 Intake & Output: Intake and Output for Last 24 Hours 03/11/24 03/12/24 03/13/24 23:59 23:59 23:59 Intake Total 1050 / 1050 1350 / 1350 100 / 100 Output Total 3400 / 3400 1000 / 1000 Balance -2350 / -2350 350 / 350 100 / 100 Lab / Micro Data 03/11/24 05:50 03/11/24 05:50 Labs: Laboratory Results - last 24 hr 03/12/24 16:17: POC Glucose 245 H 03/12/24 21:30: POC Glucose 239 H 03/13/24 08:15: POC Glucose 152 H 03/13/24 11:28: POC Glucose 167 H Physical Exam Narrative Seen and examined. Patient is still tremulous, unsteady gait and likely to fall. Pre-CERT not received yet. Complain of severe anxiety. Patient has history of chronic alcohol use and was admitted for medical treatment for acute alcohol withdrawal symptoms in the past. Physical exam General: Alert, Oriented x3, Cooperative HEENT: Atraumatic, PERRLA, EOMI, Normocephalic Oral: No Gingival or Mucosal Lesions/ Ulcerations Neck: Supple, No JVD, Negative Carotid Bruits Chest wall/Lungs: Air entry diminished in bilateral lung bases. No crepitation/rhonchi Cardiovascular: Regular rate, Regular Rhythm, Normal S1, Normal S2, No M/G/R Abdomen: Bowel Sounds Present, Soft, Non Tender, Non-Distended : No dysuria. No renal angle tenderness. No suprapubic tenderness. Hand tremors. Extremities: No edema, Capillary Refill Less than 3 Seconds Skin: No rashes, No breakdown Musculoskeletal: No Tenderness to Palpation of Joints or Extremities. Gait instability. Muscle strength 4+/5 at major joints. Neurological: Cranial nerves II-XII grossly intact, DTR 2+/4. No acute focal neurological deficit. Psych/Mental Status: Flat affect. Severe anxiety. Assessment & Plan Assessment/Plan (1) Alcohol intoxication: PLAN: Plan 1. Acute alcohol withdrawal/acute alcoholic hepatitis with chronic hyperbilirubinemia/chronic pancytopenia/debility ? He has completed the phenobarbital taper ? Given his tremors, will continue with Librium at twice daily today ? PT/OT ? Pending discharge to SNF, pre-CERT is pending 03/11: Acute alcohol withdrawal symptoms are resolved. 03/12: Pre-CERT is pending. Not stable for discharge to home with gait instability/ataxia and disequilibrium and high risk of fall 03/13: as needed. Patient on Librium 25 mg twice daily. Ativan, hydroxyzine as needed. On other medications to control withdrawal symptoms. Pre-CERT is pending. Labs ordered for tomorrow AM 2. Essential HTN/HLD ? Blood pressures are in normal range ? Continue with his home medications 03/12: Blood pressure in the settable range. 3. DM2 ? Oral hypoglycemic agents on hold ? Started on Lantus 8 units subcutaneous at dinnertime. Accu-Chek before meals and at bedtime with Humalog sliding scale coverage and hypoglycemia protocol. Hold if glucose less than 130 mg/dl Home medications also shows patient on prednisone, last dose taken unclear. Hold if 03/12: Glucoses between 174-245. Insulin dose increased. 4. Anxiety/depression/bipolar disorder ? Stable ? Continue with his home medications 5. BPH with obstructive pattern ? Chronic urinary frequency ? No acute obstruction?continue Flomax 6. GERD ? Stable ? Continue with PPI DVT: SCDs Laboratory Results 03/10/24 16:29: POC Glucose 162 H 03/10/24 22:19: POC Glucose 249 H 03/11/24 05:50: WBC 3.1 L, RBC 3.65 L, Hgb 10.0 L, Hct 31.6 L, MCV 86.6, MCH 27.4, MCHC 31.6 L, RDW Std Deviation 60.7 H, RDW Coeff of [place] 19.5 H, Plt Count 246, MPV 9.5, Immature Gran % (Auto) 0.300, Neut % (Auto) 46.7 L, Lymph % (Auto) 32.0, [place] % (Auto) 18.0 H, Eos % (Auto) 1.0, Baso % (Auto) 2.0 H, Absolute Neuts (auto) 1.4 L, Absolute Lymphs (auto) 0.98, Nucleated RBC % 0, Sodium 138, Potassium 3.4 L, Chloride 105, Carbon Dioxide 25.0, Anion Gap 8, BUN 10, Creatinine 0.83, Estim Creat Clear Calc 99.44, Est GFR (MDRD) Af Amer 122, Est GFR (MDRD) Non-Af 101, BUN/Creatinine Ratio 12.1, Glucose 191 H, Calcium 8.7, Total Bilirubin 0.30, AST 73 H, ALT 106 H, Alkaline Phosphatase 155 H, Total Protein 6.7, Albumin 3.0 L, Globulin 3.7, Albumin/Globulin Ratio 0.8 L 03/11/24 06:37: POC Glucose 204 H 03/11/24 11:16: POC Glucose 247 H Charges/Coding Visit Charges Inpatient E&M: 55501 Subs Hosp L2
--- NOTE | 2024-03-13 15:49 | CASEMGMT ---
Social Work- SW completed 7000 and placed on chart for precert. DCA advised. SYED Augustin
[2024-03-13] MEDS: Insulin Glargine-YFGN 100 UNIT/ML Pen 12 UNIT SC (16:48)
--- NOTE | 2024-03-13 16:51 | CASEMGMT ---
social Work- SW made referral to [facility], as pt medicaid termed 03/10. SYED Augustin
[2024-03-13 17:08] LABS: Bedside Glucose 190 mg/dL (74-106)
[2024-03-13] MEDS: DULAGLUTIDE 0.75 MG/0.5 ML PEN.INJCTR SC (18:53)
[2024-03-13 22:00] VITALS: BP 150/90; PULSE 71; RESP 15; TEMP 36.7; O2SAT 96
[2024-03-13] MEDS: RisperiDONE 1 MG Tablet 2 MG PO (22:36)
[2024-03-13] MEDS: Atorvastatin Calcium 10 MG Tablet PO (22:36)
[2024-03-13 23:02] LABS: Bedside Glucose 106 mg/dL (74-106)
[2024-03-14 03:00] VITALS: BP 135/76; PULSE 69; RESP 15; TEMP 36.6; O2SAT 98
[2024-03-14 05:17] LABS: Bedside Glucose 155 mg/dL (74-106)
[2024-03-14 08:05] VITALS: BP 116/89; PULSE 87
[2024-03-14] MEDS: Glucerna Shake 120 ML LIQUID PO ×3 (08:05→16:32)
[2024-03-14] MEDS: buPROPion (XL) 300 MG TABLET.XL PO (08:05)
[2024-03-14] MEDS: Metoprolol(XL)Succ 50 MG Tablet PO (08:05)
[2024-03-14] MEDS: Pantoprazole Sodium 40 MG Tablet PO (08:06)
[2024-03-14] MEDS: amLODIPine 10 MG Tablet PO (08:06)
[2024-03-14] MEDS: Tamsulosin HCl 0.4 MG Capsule PO ×2 (08:06→21:06)
[2024-03-14] MEDS: Folic Acid 1 MG Tablet PO (08:07)
[2024-03-14] MEDS: Magnesium Chloride 64 MG Delay Rel.Tablet PO (08:07)
[2024-03-14] MEDS: Multivitamins,Ther W-Minerals Tablet 1 TABLET PO (08:07)
[2024-03-14] MEDS: Thiamine Hydrochloride 100 MG Tablet PO (08:07)
[2024-03-14] MEDS: DULoxetine Hcl 60 MG Capsule PO (08:07)
[2024-03-14] MEDS: Lisinopril 40 MG Tablet PO (08:07)
[2024-03-14] MEDS: Insulin Lispro 100 UNIT/ML INSULN.PEN 6 UNIT SC ×2 (08:08→11:41)
[2024-03-14] MEDS: Menthol/Lanolin/Calamine/Znox 113 GM Tube 1 APPLIC TOPICAL ×2 (08:09→21:07)
[2024-03-14] MEDS: Nystatin Powder 15gm Bottle 1 APPLIC TOPICAL ×2 (08:10→21:07)
[2024-03-14 08:17] LABS: Absolute Lymphocyte Count 1.44 X10^3/uL (0.83-4.51); Absolute Neutrophil Count 2.5 X10^3/uL (2.0-7.7); Basophil% 2.2 % (0-1); Eosinophils% 2.2 % (0-5); Hematocrit 32.8 % (40-54); Hemoglobin 10.5 g/dL (13.0-16.5); Lymphocyte # 1.44 X10^3/ul (0.83-4.51); Lymphocyte % 31.5 % (19-41); Mean Corpuscular Hgb 27.9 pg (27.0-32.0); Mean Corpuscular Volume 87.2 fL (80-94); Monocyte# 0.47 X10^3/uL; Monocyte% 10.3 % (0-10); NRBC Flagged by Analyzer 0 % (0-5); Neutrophil # 2.45 X10^3/uL (2.7-7.7); Neutrophil % 53.6 % (47-70); Platelet Count 317 K/mm3 (150-450); RBC Distribution Width CV 19.3 % (11.6-14.6); RBC Distribution Width SD 60.9 fl (35.1-43.9); Red Blood Count 3.76 M/mm3 (4.6-6.2); White Blood Count 4.6 K/mm3 (4.4-11.0)
[2024-03-14 08:17] LABS: Bedside Glucose 148 mg/dL (74-106)
[2024-03-14 08:55] LABS: Anion Gap 9 (5-15); BUN 11 mg/dL (7-18); Calcium,Total 8.8 mg/dL (8.5-10.1); Chloride 105 mmol/L (98-107); Creatinine, Serum 0.85 mg/dL (0.70-1.30); EST Glomerular Filtration Rate 98 mL/min (>60); Est Glom Filt Rate - Afr Amer 119 mL/min (>60); Glucose 127 mg/dL (74-106); Magnesium 1.4 mg/dL (1.6-2.6); Phosphorus 4.9 mg/dL (2.5-4.9); Potassium 3.6 mmol/L (3.5-5.1); Sodium Level 139 mmol/L (136-145)
[2024-03-14] MEDS: chlordiazePOXIDE 25 MG Capsule PO ×2 (09:50→21:07)
[2024-03-14 10:54] VITALS: BP 116/89; PULSE 87; RESP 18; TEMP 36.6; O2SAT 96
[2024-03-14] MEDS: Insulin Lispro 100 UNIT/ML INSULN.PEN SC ×2 (11:41→21:13)
[2024-03-14 12:02] LABS: Bedside Glucose 185 mg/dL (74-106)
--- NOTE | 2024-03-14 13:31 | CASEMGMT ---
Addendum entered by Babita Madrigal 03/14/24 16:09: Social Work- SYED provided printed materials for transportation, meals, and private agencies. Pt had a form from tax attorney that he needed signed and faxed. SYED assisted and provided pt with original copy and fax confirmation. SYED Augustin Original Note: Social Work- SYED met with pt to continue discussions on discharge planning. Pt had medicaid [place] that termed 03/10. Pt has $11k in a lump sum disability payment and an income of $2300/month. Pt will not be eligible for medicare for 24 months. Pt would need to spend down his $11k in resources to $2k to become eligible for medicaid. SYED provided information on marketplace. SW discussed that pt has been ambulating 150' with increased stability with PT; pt agrees that he feels more stable. SW provided private pay prices for SNF, HHC, and OP therapy. SYED discussed concerns with returning home, which pt cited as making meals and the state of his apartment. Pt would also need to renew his drivers license and car tags to be able to drive himself to appointments. SW provided verbal information on delivered meals and private pay agencies, as well as transportation. Pt states that he would call his and discuss all of the d/c options, as well as if she is able to transport to [facility] for license/tags. SYED also discussed if pt would like to explore residential treatment with [facility] program; pt declines at this time. SYED will follow up tomorrow pending discussion with /family to determine plan for d/c. SYED Augustin
[2024-03-14 15:00] VITALS: BP 148/81; PULSE 73; RESP 18; TEMP 36.6; O2SAT 97
[2024-03-14] MEDS: hydrOXYzine PAM 25 MG Capsule 50 MG PO (16:32)
[2024-03-14 16:46] LABS: Bedside Glucose 125 mg/dL (74-106)
--- NOTE | 2024-03-14 17:11 | PN.HOSP_ITS ---
Reason for Visit Reason for Visit: Diagnoses Other pancytopenia (03/02/24) Other acidosis (03/02/24) Other specified metabolic disorders (03/02/24) Alcohol use, unspecified with intoxication, unspecified (03/02/24) Abnormal levels of other serum enzymes (03/02/24) Objective Data Objective Data Vital Signs: Vital Signs Temp Pulse Resp BP Pulse Ox O2 Del Method O2 Flow Rate 97.8 F 73 18 148/81 H 97 Room Air 2 03/14/24 15:00 03/14/24 15:00 03/14/24 15:00 03/14/24 15:00 03/14/24 15:00 03/14/24 15:00 03/13/24 03:00 Oxygen Flow Rate (L/min) 2 Oxygen Delivery Method Room Air Weight: 198 lb 6.656 oz Body Mass Index (BMI) 32.0 Intake & Output: Intake and Output for Last 24 Hours 03/12/24 03/13/24 03/14/24 23:59 23:59 23:59 Intake Total 1350 / 1350 100 / 100 Output Total 1000 / 1000 Balance 350 / 350 100 / 100 Lab / Micro Data 03/14/24 07:01 03/14/24 07:01 Labs: Laboratory Results - last 24 hr 03/13/24 22:32: POC Glucose 106 03/14/24 04:54: POC Glucose 155 H 03/14/24 07:01: WBC 4.6, RBC 3.76 L, Hgb 10.5 L, Hct 32.8 L, MCV 87.2, MCH 27.9, MCHC 32.0, RDW Std Deviation 60.9 H, RDW Coeff of [place] 19.3 H, Plt Count 317, MPV 10.0, Immature Gran % (Auto) 0.200, Neut % (Auto) 53.6, Lymph % (Auto) 31.5, M j[place] % (Auto) 10.3 H, Eos % (Auto) 2.2, Baso % (Auto) 2.2 H, Absolute Neuts (auto) 2.5, Absolute Lymphs (auto) 1.44, Nucleated RBC % 0, Sodium 139, Potassium 3.6, Chloride 105, Carbon Dioxide 25.0, Anion Gap 9, BUN 11, Creatinine 0.85, Estim Creat Clear Calc 97.10, Est GFR (MDRD) Af Amer 119, Est GFR (MDRD) Non-Af 98, BUN/Creatinine Ratio 13.0, Glucose 127 H, Calcium 8.8, Phosphorus 4.9, Magnesium 1.4 L 03/14/24 07:45: POC Glucose 148 H 03/14/24 11:36: POC Glucose 185 H 03/14/24 16:25: POC Glucose 125 H Physical Exam Narrative Seen and examined. Patient laying on the bed. No acute issues. Has chronic l tremulous, unsteady gait and likely to fall. Pre-CERT not received yet. Medicaid also . Complain of severe anxiety. Patient has history of chronic alcohol use and was admitted for medical treatment for acute alcohol withdrawal symptoms in the past. Physical exam General: Alert, Oriented x3, Cooperative HEENT: Atraumatic, PERRLA, EOMI, Normocephalic Oral: No Gingival or Mucosal Lesions/ Ulcerations Neck: Supple, No JVD, Negative Carotid Bruits Chest wall/Lungs: Air entry diminished in bilateral lung bases. No crepitation/rhonchi Cardiovascular: Regular rate, Regular Rhythm, Normal S1, Normal S2, No M/G/R Abdomen: Bowel Sounds Present, Soft, Non Tender, Non-Distended : No dysuria. No renal angle tenderness. No suprapubic tenderness. Hand tremors. Extremities: No edema, Capillary Refill Less than 3 Seconds Skin: No rashes, No breakdown Musculoskeletal: No Tenderness to Palpation of Joints or Extremities. Gait instability. Muscle strength 4+/5 at major joints. Neurological: Cranial nerves II-XII grossly intact, DTR 2+/4. No acute focal neurological deficit. Psych/Mental Status: Flat affect. Severe anxiety. Assessment & Plan Assessment/Plan (1) Alcohol intoxication: PLAN: Plan 1. Acute alcohol withdrawal/acute alcoholic hepatitis with chronic hyperbilirubinemia/chronic pancytopenia/debility ? He has completed the phenobarbital taper ? Given his tremors, will continue with Librium at twice daily today ? PT/OT ? Pending discharge to SNF, pre-CERT is pending 03/11: Acute alcohol withdrawal symptoms are resolved. 03/12: Pre-CERT is pending. Not stable for discharge to home with gait instability/ataxia and disequilibrium and high risk of fall 03/13: as needed. Patient on Librium 25 mg twice daily. Ativan, hydroxyzine as needed. On other medications to control withdrawal symptoms. Pre-CERT is pending. Labs ordered for tomorrow AM 03/14: Medicated and needs to be reapplied. Result pending. No acute issues still has tremulousness and gait instability. Moved his bowel. 2. Essential HTN/HLD ? Blood pressures are in normal range ? Continue with his home medications 03/12: Blood pressure in the settable range. 3. DM2 ? Oral hypoglycemic agents on hold ? Started on Lantus 8 units subcutaneous at dinnertime. Accu-Chek before meals and at bedtime with Humalog sliding scale coverage and hypoglycemia protocol. Hold if glucose less than 130 mg/dl Home medications also shows patient on prednisone, last dose taken unclear. Hold if 03/12: Glucoses between 174-245. Insulin dose increased. 4. Anxiety/depression/bipolar disorder ? Stable ? Continue with his home medications 5. BPH with obstructive pattern ? Chronic urinary frequency ? No acute obstruction?continue Flomax 6. GERD ? Stable ? Continue with PPI DVT: SCDs Laboratory Results 03/10/24 16:29: POC Glucose 162 H 03/10/24 22:19: POC Glucose 249 H 03/11/24 05:50: WBC 3.1 L, RBC 3.65 L, Hgb 10.0 L, Hct 31.6 L, MCV 86.6, MCH 27.4, MCHC 31.6 L, RDW Std Deviation 60.7 H, RDW Coeff of [place] 19.5 H, Plt Count 246, MPV 9.5, Immature Gran % (Auto) 0.300, Neut % (Auto) 46.7 L, Lymph % (Auto) 32.0, [place] % (Auto) 18.0 H, Eos % (Auto) 1.0, Baso % (Auto) 2.0 H, Absolute Neuts (auto) 1.4 L, Absolute Lymphs (auto) 0.98, Nucleated RBC % 0, Sodium 138, Potassium 3.4 L, Chloride 105, Carbon Dioxide 25.0, Anion Gap 8, BUN 10, Creatinine 0.83, Estim Creat Clear Calc 99.44, Est GFR (MDRD) Af Amer 122, Est GFR (MDRD) Non-Af 101, BUN/Creatinine Ratio 12.1, Glucose 191 H, Calcium 8.7, Total Bilirubin 0.30, AST 73 H, ALT 106 H, Alkaline Phosphatase 155 H, Total Protein 6.7, Albumin 3.0 L, Globulin 3.7, Albumin/Globulin Ratio 0.8 L 03/11/24 06:37: POC Glucose 204 H 03/11/24 11:16: POC Glucose 247 H Charges/Coding Visit Charges Inpatient E&M: 07952 Subs Hosp L2
[2024-03-14] MEDS: Potassium Chloride Oral Tablet 20 MEQ 40 MEQ PO (17:41)
[2024-03-14] MEDS: Atorvastatin Calcium 10 MG Tablet PO (21:06)
[2024-03-14] MEDS: RisperiDONE 1 MG Tablet 2 MG PO (21:07)
[2024-03-14 21:20] VITALS: BP 131/84; PULSE 81; RESP 20; TEMP 36.6; O2SAT 97
[2024-03-14 21:34] LABS: Bedside Glucose 185 mg/dL (74-106)
[2024-03-15 05:21] VITALS: BP 133/85; PULSE 71; RESP 18; TEMP 36.9; O2SAT 96
[2024-03-15 09:04] VITALS: BP 144/77; PULSE 72; RESP 16; TEMP 36.7; O2SAT 95
[2024-03-15] MEDS: Folic Acid 1 MG Tablet PO (09:09)
[2024-03-15] MEDS: Glucerna Shake 120 ML LIQUID PO (09:12)
[2024-03-15] MEDS: Potassium Chloride Oral Tablet 20 MEQ 40 MEQ PO (09:12)
[2024-03-15] MEDS: Multivitamins,Ther W-Minerals Tablet 1 TABLET PO (09:13)
[2024-03-15 09:14] VITALS: BP 144/77; PULSE 72
[2024-03-15] MEDS: Pantoprazole Sodium 40 MG Tablet PO (09:14)
[2024-03-15] MEDS: amLODIPine 10 MG Tablet PO (09:14)
[2024-03-15] MEDS: Thiamine Hydrochloride 100 MG Tablet PO (09:14)
[2024-03-15] MEDS: Metoprolol(XL)Succ 50 MG Tablet PO (09:14)
[2024-03-15] MEDS: Lisinopril 40 MG Tablet PO (09:14)
[2024-03-15] MEDS: DULoxetine Hcl 60 MG Capsule PO (09:14)
[2024-03-15] MEDS: buPROPion (XL) 300 MG TABLET.XL PO (09:14)
[2024-03-15] MEDS: Magnesium Chloride 64 MG Delay Rel.Tablet PO (09:15)
[2024-03-15] MEDS: Tamsulosin HCl 0.4 MG Capsule PO (09:15)
[2024-03-15] MEDS: Nystatin Powder 15gm Bottle 1 APPLIC TOPICAL (09:16)
[2024-03-15] MEDS: Menthol/Lanolin/Calamine/Znox 113 GM Tube 1 APPLIC TOPICAL (09:16)
[2024-03-15] MEDS: chlordiazePOXIDE 25 MG Capsule PO (09:19)
--- NOTE | 2024-03-15 10:08 | DCINST_ITS ---
Discharge Instructions Diet Discharge Diet: Low fat / Low cholesterol Activity Discharge Activity: Return to Normal Activity Weight Bearing Status: Weight bearing as tolerated Dressing / Incision Call your doctor if you observe: Fever of 101 or Higher, Coldness, Increased Pain, Numbness or Tingling, Change in Color, Inability to urinate, Inability to have a bowel movement, Shortness of breath, Dizziness, Fainting spells, Swelling in the ankles, Chest pain, Prolonged hiccupping, Increased palpitations (irregular heartbeat) and Calf discomfort Follow Up Care When: IN 2 WEEKS Test Results: Test results from this visit will be discussed in further detail at your follow- up appointment, if applicable. Discharge Plan Admission Admit Date/Time: 03/02/24 03:30 Primary Reason for Your Visit: Acute alcohol withdrawal syndrome. Attending Provider: Enzo Orozco Primary Care Provider: Dalila Pedro Consulting Providers: Mya Ulrich; Shira Kunz; Charly Escobar Discharge Orders/Prescriptions Prescriptions: New thiamine HCl (vitamin B1) 100 mg Tablet 100 mg PO DAILYCM 90 Days Qty: 90 1RF potassium chloride 20 mEq Tablet,Er Particles/Crystals 40 meq PO DAILYCM 7 Days Qty: 0 0RF amlodipine 10 mg Tablet 10 mg PO DAILY 30 Days Qty: 30 2RF Rx Instructions: Hold for SBP less than 130 mmHg Continued duloxetine 60 mg capsule,delayed release(DR/EC) 60 mg PO DAILY multivitamin with iron Tablet 1 tab PO DAILY PRN (Reason: iorn deficient ) Vivitrol 380 mg suspension,extended rel recon 380 mg IM QMONTH bupropion HCl 300 MG tablet extended release 24 hr 300 mg PO DAILY risperidone 1 mg tablet 2 mg PO QHS prednisone 20 mg tablet 40 mg PO DAILY Qty: 14 0RF folic acid 1 mg tablet 1 mg PO DAILY Qty: 90 1RF lisinopril 40 mg tablet 40 mg PO DAILY Qty: 90 0RF Rx Instructions: Hold for SBP less than 130 mmHg (DME) OneTouch Verio test strips Strip See Rx Instructions .Route Qty: 100 3RF Rx Instructions: As directed to check BG daily for DMII atorvastatin 10 mg tablet 10 mg PO QHS Qty: 30 2RF Trulicity 0.75 mg/0.5 mL pen injector 0.75 mg subcut QWEEK Qty: 2 0RF metoprolol succinate 50 mg tablet extended release 24 hr 50 mg PO DAILY Qty: 90 0RF pantoprazole 40 mg tablet,delayed release (DR/EC) 40 mg PO DAILY Qty: 90 0RF Trulance 3 mg tablet 3 mg PO DAILY Qty: 90 0RF tamsulosin 0.4 mg capsule 0.4 mg PO BID Qty: 180 0RF magnesium 200 mg tablet 200 mg PO DAILY Qty: 90 0RF Discontinued ibuprofen 600 mg tablet 600 mg PO Q6H PRN PRN (Reason: pain) Qty: 20 0RF amlodipine 5 mg tablet 10 mg PO DAILY Qty: 90 0RF Referrals / Follow Up: Dalila Pedro MD [Primary Care Provider] - Within 2 Weeks Disposition Disposition (needs filled in before D/C Order can be placed): Home, Self Care
--- NOTE | 2024-03-15 10:15 | CASEMGMT ---
Addendum entered by Veronica Gore 03/15/24 10:48: Pt provided rx for outpt therapy. Original Note: RN CM into pt room, pt lying in bed in no distress. Pt states he would like to have outpt therapy. Provided pt with a verbal local list of places to receive therapy. Pt states he would like to have at [facility]. Asked pt if SHELBY MURO could set this up for him. He states he would like to do this so he can look at his schedule first. He will transport himself. He is aware that [facility]'s phone number will be on his dc instructions. Pt denies further homegoing needs at this time.
[2024-03-15 11:09] LABS: Bedside Glucose 184 mg/dL (74-106)
[2024-03-15 11:09] LABS: Bedside Glucose 170 mg/dL (74-106)
--- NOTE | 2024-03-15 11:13 | DS.PCM_ITS ---
Providers Date of Admission: 03/02/24 Date of Discharge: 03/15/24 Primary Care Physician: Dr. Dalila Pedro MD Reason For Visit: ETOH DETOX Diagnosis Discharge Diagnosis (1) Alcohol intoxication: Status: Acute Code(s): F10.929 - Alcohol use, unspecified with intoxication, unspecified Plan 59-year-old gentleman was admitted acute alcohol withdrawal syndrome. He has been drinking half a gallon of vodka for last 3 weeks prior to that in last May he had a cardiac arrest as per the patient. He was feeling shaky, tremulous. Denies other substance use or smoking. Denies suicidal or homicidal. Patient was admitted on [facility] floor. 1. Acute alcohol withdrawal/acute alcoholic hepatitis with chronic hyperbilirubinemia/chronic pancytopenia/debility Patient completed phenobarbital taper as per order set along with other adjunctive medications gabapentin, Bentyl, Vistaril, clonidine, Klonopin as needed for alcohol withdrawal symptom control. Patient is on thiamine and folate acid. CIWA monitor. software product manager [email or web address] consulted. ? Given his tremors, will continue with Librium at twice daily today ? PT/OT ? Pending discharge to SNF, pre-CERT is pending 03/11: Acute alcohol withdrawal symptoms are resolved. 03/12: Pre-CERT is pending. Not stable for discharge to home with gait instability/ataxia and disequilibrium and high risk of fall 03/13: as needed. Patient on Librium 25 mg twice daily. Ativan, hydroxyzine as needed. On other medications to control withdrawal symptoms. Pre-CERT is pending. Labs ordered for tomorrow AM 03/14: Medicated and needs to be reapplied. Result pending. No acute issues still has tremulousness and gait instability. Moved his bowel. 03/15: Medicaid applied. Patient can follow with PCP Dr. Tracy zaidi. Prescription given for thiamine, potassium supplement. Ibuprofen discontinued. 2. Essential HTN/HLD ? Blood pressures are in normal range ? Continue with his home medications 03/12: Blood pressure in the settable range. 3. DM2 ? Oral hypoglycemic agents on hold ? Started on Lantus 8 units subcutaneous at dinnertime. Accu-Chek before meals and at bedtime with Humalog sliding scale coverage and hypoglycemia protocol. Hold if glucose less than 130 mg/dl Home medications also shows patient on prednisone, last dose taken unclear. Hold if 03/12: Glucoses between 174-245. Insulin dose increased. 4. Anxiety/depression/bipolar disorder ? Stable ? Continue with his home medications 5. BPH with obstructive pattern ? Chronic urinary frequency ? No acute obstruction?continue Flomax 6. GERD ? Stable ? Continue with PPI DVT: SCDs Discharge medication reconciliation done. Discharge follow-up instructions completed. Discharge process discussed with the patient and all questions were answered to patient's satisfaction. Follow with PCP in 1 to 2 weeks Total time spent, exact 35 minutes on discharge meds reconciliation, examination, coordination of care with nurses and ancillary staff, review of imaging and blood test and discussion with the patient on follow-up instructions. Laboratory Results 03/14/24 11:36: POC Glucose 185 H 03/14/24 16:25: POC Glucose 125 H 03/14/24 21:13: POC Glucose 185 H 03/15/24 07:38: POC Glucose 184 H 03/15/24 10:51: POC Glucose 170 H Medications at Discharge Home Medications bupropion HCl 300 mg 24 hr tablet, extended release 300 mg PO DAILY depression 07/12/18 duloxetine 60 mg capsule,delayed release 60 mg PO DAILY 10/18/23 risperidone 1 mg tablet 2 mg PO QHS sleep 10/18/23 blood sugar diagnostic ([employer] test strips) #100 ea 10/25/23 multivitamin with iron 1 tab PO DAILY PRN iorn deficient 11/10/23 naltrexone microspheres 380 mg intramuscular suspension,extended release (Vivitrol) 380 mg IM QMONTH etoh 11/10/23 atorvastatin 10 mg tablet 10 mg PO QHS hld #30 TABLETS 12/19/23 dulaglutide 0.75 mg/0.5 mL subcutaneous pen injector (Trulicity) 0.75 mg (0.5 mL) subcut QWEEK diabetes #2 mL 02/23/24 metoprolol succinate 50 mg tablet,extended release 24 hr 50 mg PO DAILY BP #90 tabs 02/27/24 pantoprazole 40 mg tablet,delayed release 40 mg PO DAILY GERD #90 tabs 02/27/24 plecanatide 3 mg tablet (Trulance) 3 mg PO DAILY diabetes #90 tabs 02/27/24 tamsulosin 0.4 mg capsule 0.4 mg PO BID prostate #180 caps 02/27/24 magnesium 200 mg tablet 200 mg PO DAILY supplement #90 tabs 02/29/24 amlodipine 10 mg tablet 10 mg PO DAILY 30 days #30 tabs 03/15/24 folic acid 1 mg tablet 1 mg PO DAILY supplement #90 tabs 03/15/24 lisinopril 40 mg tablet 40 mg PO DAILY blood pressure #90 tabs 03/15/24 potassium chloride 20 mEq tablet,extended release(part/cryst) 40 meq (2 x 20 mEq) PO DAILYCM 7 days #0 tabs 03/15/24 thiamine HCl (vitamin B1) 100 mg tablet 100 mg PO DAILYCM 90 days #90 tabs 03/15/24 Physical Exam Narrative Seen and examined. Patient laying on the bed. No acute issues. Has moved bowel. Physical exam General: Alert, Oriented x3, Cooperative HEENT: Atraumatic, PERRLA, EOMI, Normocephalic Oral: No Gingival or Mucosal Lesions/ Ulcerations Neck: Supple, No JVD, Negative Carotid Bruits Chest wall/Lungs: Air entry diminished in bilateral lung bases. No crepitation/rhonchi Cardiovascular: Regular rate, Regular Rhythm, Normal S1, Normal S2, No M/G/R Abdomen: Bowel Sounds Present, Soft, Non Tender, Non-Distended : No dysuria. No renal angle tenderness. No suprapubic tenderness. Hand tremors. Extremities: No edema, Capillary Refill Less than 3 Seconds Skin: No rashes, No breakdown Musculoskeletal: No Tenderness to Palpation of Joints or Extremities. Gait instability. Muscle strength 4+/5 at major joints. Neurological: Cranial nerves II-XII grossly intact, DTR 2+/4. No acute focal neurological deficit. Psych/Mental Status: Flat affect. Severe anxiety. Weight / BMI Weight Weight: 198 lb 6.656 oz Body Mass Index (BMI) 32.0 ABG / Lab / Microbiology Data 03/14/24 07:01 03/14/24 07:01 Laboratory: Laboratory Results - last 24 hr 03/14/24 11:36: POC Glucose 185 H 03/14/24 16:25: POC Glucose 125 H 03/14/24 21:13: POC Glucose 185 H 03/15/24 07:38: POC Glucose 184 H 03/15/24 10:51: POC Glucose 170 H D/C Instructions Discharge Diet: Low fat / Low cholesterol Weight Bearing Status: Weight bearing as tolerated Call your doctor if you observe: Fever of 101 or Higher, Coldness, Increased Pain, Numbness or Tingling, Change in Color, Inability to urinate, Inability to have a bowel movement, Shortness of breath, Dizziness, Fainting spells, Swelling in the ankles, Chest pain, Prolonged hiccupping, Increased palpitations (irregular heartbeat) and Calf discomfort When: IN 2 WEEKS Meaningful Use Info Meaningful Use Meaningful Use Diagnoses (Choose all that apply): None applicable Ischemic Stroke Statin Dosing Therapy Reference: STATIN DOSE THERAPY REFERENCE: * Patients > 75 years receive moderate or high dose statin therapy. * Patients 75 years or YOUNGER should receive HIGH intensity statin dose unless contraindicated. You will be required to document reason for non-treatment if statin daily dose does not meet guidelines. HIGH DOSE STATIN THERAPY DAILY Atorvastatin > than or = to 40 mg Rosuvastatin > than or = to 20 mg Amlodipine + Atorvastatin > than or = to 2.5/40 mg Ezetimibe + Simvastatin 10/80 mg Simvastatin 80mg Discharge Plan Admission Admit Date/Time: 03/02/24 03:30 Primary Reason for Your Visit: Acute alcohol withdrawal syndrome. Attending Provider: Enzo Orozco Primary Care Provider: Dalila Pedro Consulting Providers: Mya Ulrich; Shira Kunz; Charly Escobar Discharge Orders/Prescriptions Prescriptions: New thiamine HCl (vitamin B1) 100 mg Tablet 100 mg PO DAILYCM 90 Days Qty: 90 1RF potassium chloride 20 mEq Tablet,Er Particles/Crystals 40 meq PO DAILYCM 7 Days Qty: 0 0RF amlodipine 10 mg Tablet 10 mg PO DAILY 30 Days Qty: 30 2RF Rx Instructions: Hold for SBP less than 130 mmHg Continued duloxetine 60 mg capsule,delayed release(DR/EC) 60 mg PO DAILY multivitamin with iron Tablet 1 tab PO DAILY PRN (Reason: iorn deficient ) Vivitrol 380 mg suspension,extended rel recon 380 mg IM QMONTH bupropion HCl 300 MG tablet extended release 24 hr 300 mg PO DAILY risperidone 1 mg tablet 2 mg PO QHS folic acid 1 mg tablet 1 mg PO DAILY Qty: 90 1RF lisinopril 40 mg tablet 40 mg PO DAILY Qty: 90 0RF Rx Instructions: Hold for SBP less than 130 mmHg (DME) On license of [facility] test strips Strip See Rx Instructions .Route Qty: 100 3RF Rx Instructions: As directed to check BG daily for DMII atorvastatin 10 mg tablet 10 mg PO QHS Qty: 30 2RF Trulicity 0.75 mg/0.5 mL pen injector 0.75 mg subcut QWEEK Qty: 2 0RF metoprolol succinate 50 mg tablet extended release 24 hr 50 mg PO DAILY Qty: 90 0RF pantoprazole 40 mg tablet,delayed release (DR/EC) 40 mg PO DAILY Qty: 90 0RF Trulance 3 mg tablet 3 mg PO DAILY Qty: 90 0RF tamsulosin 0.4 mg capsule 0.4 mg PO BID Qty: 180 0RF magnesium 200 mg tablet 200 mg PO DAILY Qty: 90 0RF Discontinued prednisone 20 mg tablet 40 mg PO DAILY Qty: 14 0RF ibuprofen 600 mg tablet 600 mg PO Q6H PRN PRN (Reason: pain) Qty: 20 0RF amlodipine 5 mg tablet 10 mg PO DAILY Qty: 90 0RF Referrals / Follow Up: Dalila Pedro MD [Primary Care Provider] - Within 2 Weeks Disposition Disposition (needs filled in before D/C Order can be placed): Home, Self Care Charges/Coding Visit Charges Inpatient E&M: 37726 Disch Hosp >30min
--- NOTE | 2024-03-15 11:18 | CASEMGMT ---
Social Work- SW met with pt to verify plans to return home with OP therapy; pt confirms. SW went back over information provided yesterday, as well as discussing pt anxiety. Pt declined list of mental health providers for support with anxiety. Pt reports that he has no other needs. Pt reports that he ordered a WW from [employer] and will pick it up today. Pt states ex will take to gets tags and license today following d/c. SW will remain available to follow. Plan; Home, with Outpatient Therapy [facility]
== END 2024-03-15 12:11 | disposition home or self-care (01) | DRG 775 ==
LOC: ED 02:57 → MS3 04:36
PROVIDERS: Family Medicine; Admitting Provider Internal Medicine; Emergency Provider Emergency Medicine; PCP Internal Medicine; Visit Provider Internal Medicine
DX: F10.129 Alcohol abuse with intoxication, unspecified (principal); D61.818 Other pancytopenia; E22.2 Syndrome of inappropriate secretion of antidiuretic hormone; E87.20 Acidosis, unspecified; E11.9 Type 2 diabetes mellitus without complications; F31.9 Bipolar disorder, unspecified; K70.10 Alcoholic hepatitis without ascites; I10 Essential (primary) hypertension; K70.30 Alcoholic cirrhosis of liver without ascites; F10.231 Alcohol dependence with withdrawal delirium; K21.9 Gastro-esophageal reflux disease without esophagitis; I25.10 Atherosclerotic heart disease of native coronary artery without angina pectoris; G47.33 Obstructive sleep apnea (adult) (pediatric); E78.00 Pure hypercholesterolemia, unspecified; F41.9 Anxiety disorder, unspecified; E83.42 Hypomagnesemia; E83.39 Other disorders of phosphorus metabolism; F10.139 Alcohol abuse with withdrawal, unspecified; Z79.85 Long-term (current) use of injectable non-insulin antidiabetic drugs; Z87.891 Personal history of nicotine dependence; N40.1 Benign prostatic hyperplasia with lower urinary tract symptoms; R53.81 Other malaise; Z86.74 Personal history of sudden cardiac arrest; Y90.8 Blood alcohol level of 240 mg/100 ml or more; Z79.52 Long term (current) use of systemic steroids; Z79.899 Other long term (current) drug therapy; N13.8 Other obstructive and reflux uropathy; R35.0 Frequency of micturition; T51.0X1A Toxic effect of ethanol, accidental (unintentional), initial encounter
CPT/HCPCS: 36415; 80048; 80053; 80307; 82009; 82077; 82962; 83036; 83735; 83930; 84100; 85025; 93005; 97110; 97116; 97162; 97166; 97530; 97535; 99285; J7030; J7050; A4216